=== PATIENT | female | born 1950 | race Caucasian/White ===

== ENCOUNTER 2019-02-27 16:14 | Observation (INO) | payer MEDICARE, OTHER, SELFPAY ==
[2019-02-27] VITALS (7 sets, daily range): BP systolic 130–159; BP diastolic 71–79; PULSE 80–101; RESP 16–27; TEMP 36.5–36.7; O2SAT 97–100; BMI 34.9; BMI 34.5
--- NOTE | 2019-02-27 16:50 | EKG12_ITS ---
Test Reason : CP Blood Pressure : / mmHG Vent. Rate : 095 BPM Atrial Rate : 095 BPM P-R Int : 134 ms QRS Dur : 078 ms QT Int : 348 ms P-R-T Axes : 040 -18 036 degrees QTc Int : 437 ms Normal sinus rhythm Normal ECG Confirmed by FRANCY DYE, DRU ([id number]), electronic news gathering editor LEEROY TREADWELL ([id number]) on 03/03/2019 8:51:49 AM Referred By: EMILIE/JENI Confirmed By:DRU SEN MD
--- NOTE | 2019-02-27 16:53 | NURSING ---
NO OLD EKGS
--- NOTE | 2019-02-27 16:58 | ED.DCSUM_ITS ---
- ER Visit Summary Date of Service: 02/27/19 Chief Complaint: Chest pain History of Present Illness: The patient is a 68 F who presents with chest pain that began today at approximately 1400 hrs. Patient states she got up to answer the door when she was walking back to the couch she felt some pain in her chest. Patient states the pain started in the left shoulder and radiated down her left arm. Patient states the pain is now over the left chest. Patient states nothing seems to help with the pain. Patient admits to some mild diaphoresis when the pain began. Patient also admits to some lightheadedness. Patient states she feels loopy. Patient also admits to some heartburn. Patient admits to some paresthesias in her left hand. Patient was recently started on Augmentin for urinary tract infection and gabapentin for occipital nerve pain. Physical Examination: Vital signs are stable. Patient is afebrile. Patient is in no acute distress. Oral mucosa is pink and moist. Neck is supple. Trachea is midline. There is no JVD noted. Heart was regular rate and rhythm. Lungs are clear and equal bilateral. Abdomen is soft. Bowel sounds are normal. There is no tenderness. There is no guarding noted. Skin is warm dry. Cranial nerves II through XII are intact. There are no focal motor or sensory deficits noted. The remaining physical exam is within normal limits. Test Results: EKG showed normal sinus rhythm with a rate of 95. There are no acute ST or T wave changes. CBC basic metabolic profile, PT with INR, and PTT were obtained and were all normal with the exception of a slightly elevated glucose of 151. Troponin was less than 0.015. Portable chest x-ray was obtained was normal. Emergency Department Course and Treatment: Patient was given aspirin and sublingual nitroglycerin. Patient had some improvement of her pain with this. Patient has a HEART score of 4. Patient has a TALITA risk score of 2. Patient does not remember when her last stress test was done but knows it is more than 1 year ago. Case was discussed with the hospitalist. Disposition: Admit for observation Impression: Chest pain This note was generated with [employer] dictation software. It may contain incorrect words, spelling, and punctuation that were not noted in review of the chart prior to signing ED Disposition - Plan for ED Patient: Disposition: Acute Care [facility] Diagnosis: Chest pain Referrals: Maxx Pñea MD [Primary Care Provider] -
--- NOTE | 2019-02-27 16:59 | RAD_ITS ---
STUDY: X-RAY CHEST REASON FOR EXAM: Female, 68 years old. Yes pain. TECHNIQUE: Portable chest. COMPARISON: None. FINDINGS: The patient is mildly rotated to the right. The lungs are clear and expanded. There is no demonstrated pleural abnormality. Normal size heart. Normal mediastinum and james. Normal visualized pulmonary arteries. Normal visualized aortic arch and descending thoracic aorta. Normal visualized thoracic spine. Normal visualized ribs, clavicles, and shoulders. There is no demonstrated abnormality of the visualized soft tissue structures of the upper abdomen. RAD/Chest 1 View (Portable) IMPRESSION: Normal x-ray examination of the chest. Electronically Signed: Yasmine Cordoba MD at 17:19 EDT Tel , Service support ,
[2019-02-27 17:00] LABS: Absolute Lymphocyte Count 2.61 X10^3/ul (0.83-4.51); Absolute Neutrophil Count 5.3 X10^3/uL (2.0-7.7); Basophil# 0.02 X10^3/uL; Basophil% 0.2 % (0-1); Eosinophil# 0.22 X10^3/uL; Eosinophils% 2.5 % (0-5); Hematocrit 39.8 % (37-47); Hemoglobin 13.3 g/dl (12.0-15.0); Lymphocyte # 2.61 X10^3/ul (4.0); Mean Corp Hgb Conc 33.4 g/gl (32-36); Mean Corpuscular Hgb 30.7 pg (27.0-32.0); Mean Corpuscular Volume 91.9 fL (81-99); Mean Platelet Vol. 8.7 fl (6.2-12.0); Monocyte# 0.55 X10^3/uL; Monocyte% 6.3 % (0-10); Neutrophil # 5.28 X10^3/uL (2.7-7.7); Neutrophil % 60.9 % (47-70); Platelet Count 290 K/mm3 (150-450); RBC Distribution Width CV 13.2 % (11.6-14.6); RBC Distribution Width SD 44.2 fl (35.1-43.9); Red Blood Count 4.33 M/mm3 (4.2-5.4); White Blood Count 8.7 K/mm3 (4.4-11.0)
[2019-02-27] MEDS: Nitroglycerin SL (ED/IMG/CATH) 0.4 MG TABLET SUBLINGUAL (17:00)
[2019-02-27 17:02] LABS: POSITIVE COUNT NO; POSITIVE DIFFERENTIAL NO; POSITIVE MORPHOLOGY NO
[2019-02-27 17:13] LABS: Anion Gap 6 (5-15); BUN 20 mg/dL (7-18); BUN/Creat Ratio 22.1 RATIO (10-20); Calcium,Total 9.6 mg/dL (8.5-10.1); Chloride 106 mmol/L (98-107); EST Glomerular Filtration Rate 66 mL/min (>60); Est Glom Filt Rate - Afr Amer 80 mL/min (>60); Estimated Creatinine Clearance 53.83 ml/min; Glucose 151 mg/dL (74-106); Sodium Level 140 mmol/L (136-145)
--- NOTE | 2019-02-27 17:15 | NURSING ---
COAGS NEED REDRAWN, NOT ENOUGH IN TUBE
[2019-02-27 17:50] LABS: Prothrombin Time (Protime)PT. 12.7 SECONDS (11.7-14.9)
[2019-02-27 17:51] LABS: Partial Thromboplast Time 28.6 Seconds (24.1-36.2)
--- NOTE | 2019-02-27 19:18 | PCM.HP.STD ---
Problem List (1) Chest pain Status: Acute Qualifiers: Chest pain type: unspecified Qualified Code(s): R07.9 - Chest pain, unspecified (2) Obesity (BMI 30.0-34.9) Status: Chronic (3) Diabetes mellitus, type II Status: Chronic Qualifiers: Diabetes mellitus long-term insulin use: with oil heaterman use Diabetes mellitus complication status: with other specified complication Qualified Code(s): E11.69 - Type 2 diabetes mellitus with other specified complication; Z79.4 - terminal carman (current) use of insulin (4) GERD (gastroesophageal reflux disease) Status: Chronic Qualifiers: Esophagitis presence: esophagitis presence not specified Qualified Code(s): K21.9 - Gastro-esophageal reflux disease without esophagitis History of Present Illness Date of Admission: 02/27/19 Chief Complaint: Chest pain The patient is a 68 y/o F w/ PMHx: Obesity, Diabetes mellitus type II w/ Neuropathy, GERD who presents to the [facility] ED on 02/27/19 with history of onset at approximately 2 PM while walking to the door with also recurrent similar episodes with exertion with noted a constant dull aching chest discomfort initially starting in her left shoulder progressing down her left upper extremity and then into her left chest with associated paresthesias in her hand as well as diaphoresis with no associated nausea, emesis or dyspnea, the discomfort as 4-6 out of 10. She did state that while in the emergency room with episode of chest discomfort she did have dyspepsia but this resolved. She notes that it did improve when she was resting. She did have recurrent episode when up to use the restroom in the emergency room but again improved when seated back down in bed. She did take nitroglycerin and noted that she felt very nauseous with this medication and refused any further dosing. Patient notes that she is regularly active and walks frequently. Work-up in the ED included CBC w/ WBC 8.7, Hgb 13.3, Plts 290 without shift, normal coags, BMP with glucose 151, trop < 0.015, EKG w/ SR without acute evidence of ischemia, CXR w/ no acute findings. In the ED patient administered NG, ASA. Past Medical History Past Medical History (Chronic Problems): Chronic Problems Obesity (BMI 30.0-34.9) (Chronic) Diabetes mellitus, type II (Chronic) GERD (gastroesophageal reflux disease) (Chronic) Allergies carbidopa [From Sinemet] Allergy (Verified 02/27/19 16:30) Other levodopa [From Sinemet] Allergy (Verified 02/27/19 16:30) Other meperidine Allergy (Verified 02/27/19 16:30) Other Sulfa (Sulfonamide Antibiotics) Allergy (Verified 02/27/19 16:30) Rash acetaminophen [From [place]] Adverse Reaction (Verified 02/27/19 16:30) Nausea adhesive tape Adverse Reaction (Verified 02/27/19 16:30) Rash aspirin Adverse Reaction (Verified 02/27/19 16:30) Upset Stomach capsaicin Adverse Reaction (Verified 02/27/19 16:30) Nausea cat dander Adverse Reaction (Verified 02/27/19 16:30) Other cigarette smoke Adverse Reaction (Verified 02/27/19 16:30) Other ciprofloxacin Adverse Reaction (Verified 02/27/19 16:30) Nausea codeine Adverse Reaction (Verified 02/27/19 16:30) Nausea cyclobenzaprine Adverse Reaction (Verified 02/27/19 16:30) Nausea erythromycin base Adverse Reaction (Verified 02/27/19 16:30) Nausea hydrocodone [From [place]] Adverse Reaction (Verified 02/27/19 16:30) Nausea morphine Adverse Reaction (Verified 02/27/19 16:30) Nausea oxycodone Adverse Reaction (Verified 02/27/19 16:30) Nausea sulfamethoxazole [From [place]ra] Adverse Reaction (Verified 02/27/19 16:30) Nausea tramadol Adverse Reaction (Verified 02/27/19 16:30) Nausea trimethoprim Adverse Reaction (Verified 02/27/19 16:30) Other Home Medications: Ambulatory Orders Medication Instructions Recorded Amoxicillin/Potassium Clav 1 each PO BID 02/27/19 [Augmentin 875-125 Tablet] Gabapentin [Neurontin] 100 mg PO BID 02/27/19 Insulin Glargine,Hum.rec.anlog 10 unit SQ QHS 02/27/19 [Lantus Solostar] Multivit-Min/FA/Lycopen/Lutein 1 each PO DAILY 02/27/19 [Sentry Senior Tablet] Ranitidine HCl 150 mg PO DAILY 02/27/19 Surgical History: - - Biceps tendon repair, lumbar surgery, hand surgery, right total knee replacement, hysterectomy, left ankle surgery, cholecystectomy. 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 Review of Systems Constitutional: Reports: Fatigue. Denies: Chills, Fever, Weight Change HEENT: Denies: Head Aches, Sinus Congestion, Sinus Drainage Cardiovascular: Reports: Chest Pain. Denies: Palpitations Respiratory: Denies: Cough, Shortness of breath at rest, Sputum production Gastrointestinal: Reports: Dyspepsia. Denies: Abdominal Pain, Nausea, Vomiting Genitourinary: Reports: Dysuria, Frequency Musculoskeletal: Reports: Back Pain. Denies: Joint Pain, Joint Tenderness Skin: Denies: Rash, Wounds Neurological: Denies: Numbness, Tingling, Focal weakness Psychiatric: Denies: Anxiety, Depression, Homicidal Ideations, Suicidal Ideations Hematologic/ Lymphatic: Denies: Easy Bruising, Easy Bleeding VTE Information - Inpt Only VTE Present on Admission: No VTE Mechan Device Prophylaxis: SCD's VTE Pharm Prophylaxis ordered?: Yes Patient Problems: Active and Suspected Problems Chest pain (Acute) Subjective: Patient seated upright in ED bed, currently no acute distress, no current chest discomfort. Objective: Physical Examination: General: awake, alert, oriented x 3 and cooperative, seated upright in the ED bed in no apparent distress, currently no chest discomfort but did have episode with ambulation to the bathroom in the ED. Skin: normal color, turgor, no icterus, cyanosis. HEENT: AT/NC, EOMI, PERRLA, MMM, no carotid bruits or JVD noted. Lungs: CTA bilaterally, moderate effort, mild decrease BL bases, no rales, ronchi or wheezing. Heart: Regular rate and rhythm; no gallop, rub audible. Abdomen: soft, obese, NTTP, ND, normal BS, no HSM; however, habitus makes examination difficult. Extremities: no cyanosis, clubbing, or edema. Neurological: patient awake, alert, oriented x 3; cognitive function intact; pupils equally reactive to light and accomodation; cranial nerves II-XII grossly normal, moving all 4 extremities, no focal deficits, strength mildly to moderately global decrease secondary to acute presentation. Psychiatric: affect appears normal, no acute evidence of depressive or anxiety feelings. - Physical Exam Vital Signs Temp Pulse Resp BP Pulse Ox 98.0 F 84 27 H 130/71 H 99 02/27/19 16:15 02/27/19 19:03 02/27/19 19:03 02/27/19 17:02 02/27/19 19:03 Oxygen Delivery Method Room Air Weight: 209 lb 14.081 oz Body Mass Index (BMI) 34.9 Laboratory Tests Past 24 Hrs 02/27/19 02/27/19 02/27/19 16:22 16:22 16:22 WBC 8.7 RBC 4.33 Hgb 13.3 Hct 39.8 MCV 91.9 MCH 30.7 MCHC 33.4 RDW 13.2 RDW Differential 44.2 H Plt Count 290 MPV 8.7 Immature Gran % (Auto) 0.100 Neut % (Auto) 60.9 Lymph % (Auto) 30.0 [place] % (Auto) 6.3 Eos % (Auto) 2.5 Baso % (Auto) 0.2 Absolute Neuts (auto) 5.3 Absolute Lymphs (auto) 2.61 Total Counted Not Reportable PT Cancelled INR Cancelled APTT Cancelled Sodium 140 Potassium 4.0 Chloride 106 Carbon Dioxide 28.0 Anion Gap 6 BUN 20 H Creatinine 0.90 Estim Creat Clear Calc 53.83 Est GFR (MDRD) Af Amer 80 Est GFR (MDRD) Non-Af 66 BUN/Creatinine Ratio 22.1 H Glucose 151 H Calcium 9.6 Troponin I < 0.015 02/27/19 17:30 WBC RBC Hgb Hct MCV MCH MCHC RDW RDW Differential Plt Count MPV Immature Gran % (Auto) Neut % (Auto) Lymph % (Auto) [place] % (Auto) Eos % (Auto) Baso % (Auto) Absolute Neuts (auto) Absolute Lymphs (auto) Total Counted PT 12.7 INR 1.0 APTT 28.6 Sodium Potassium Chloride Carbon Dioxide Anion Gap BUN Creatinine Estim Creat Clear Calc Est GFR (MDRD) Af Amer Est GFR (MDRD) Non-Af BUN/Creatinine Ratio Glucose Calcium Troponin I Assessment/Plan All Active Problems Chest pain (Acute) The patient is a 68 y/o F w/ PMHx: Obesity, Diabetes mellitus type II w/ Neuropathy, GERD who presents to the [facility] ED on 02/27/19 with history of onset at approximately 2 PM chest pain. (1) Chest Pain: Work-up in the ED included CBC w/ WBC 8.7, Hgb 13.3, Plts 290 without shift, normal coags, BMP with glucose 151, trop < 0.015, EKG w/ SR without acute evidence of ischemia, CXR w/ no acute findings. Will admit to PCU, place on a monitored bed to assure no acute myocardial infarction with serial cardiac enzymes and EKGs. Patient is able to perform exercise and does not have LBBB, V-pacing, ST-T changes, LVH, prior PCI history and is not on digoxin thus will proceed with AM stress test. ASA, NG, morphine. FLP in AM. Mag pending. (2) Recent Acute UTI, Unclear organism: Recently started on augmentin this past Saturday per PCP. (3) Diabetes mellitus type II w/ Neuropathy: Continue home insulin regimen, ADA diet, accu checks w/ ISS, continue gabapentin. (4) Obesity: Weight loss and lifestyle changes encouraged. (5) GERD: Continue home ranitidine regimen. (6) DVT prophylaxis: SCD, Lovenox. Code Visit OBSV E&M: 09711 Initial observation care L3
--- NOTE | 2019-02-27 19:21 | HP.PCM_ITS ---
Problem List (1) Chest pain Status: Acute Qualifiers: Chest pain type: unspecified Qualified Code(s): R07.9 - Chest pain, unspecified (2) Obesity (BMI 30.0-34.9) Status: Chronic (3) Diabetes mellitus, type II Status: Chronic Qualifiers: Diabetes mellitus halfway insulin use: with terminal clerk use Diabetes mellitus complication status: with other specified complication Qualified Code(s): E11.69 - Type 2 diabetes mellitus with other specified complication; Z79.4 - terminal block assembler (current) use of insulin (4) GERD (gastroesophageal reflux disease) Status: Chronic Qualifiers: Esophagitis presence: esophagitis presence not specified Qualified Code(s): K21.9 - Gastro-esophageal reflux disease without esophagitis History of Present Illness Date of Admission: 02/27/19 Chief Complaint: Chest pain The patient is a 68 y/o F w/ PMHx: Obesity, Diabetes mellitus type II w/ Neuropathy, GERD who presents to the [facility] ED on 02/27/19 with history of onset at approximately 2 PM while walking to the door with also recurrent similar episodes with exertion with noted a constant dull aching chest discomfort initially starting in her left shoulder progressing down her left upper extremity and then into her left chest with associated paresthesias in her hand as well as diaphoresis with no associated nausea, emesis or dyspnea, the discomfort as 4-6 out of 10. She did state that while in the emergency room with episode of chest discomfort she did have dyspepsia but this resolved. She notes that it did improve when she was resting. She did have recurrent episode when up to use the restroom in the emergency room but again improved when seated back down in bed. She did take nitroglycerin and noted that she felt very nauseous with this medication and refused any further dosing. Patient notes that she is regularly active and walks frequently. Work-up in the ED included CBC w/ WBC 8.7, Hgb 13.3, Plts 290 without shift, normal coags, BMP with glucose 151, trop < 0.015, EKG w/ SR without acute evidence of ischemia, CXR w/ no acute findings. In the ED patient administered NG, ASA. Past Medical History Past Medical History (Chronic Problems): Chronic Problems Obesity (BMI 30.0-34.9) (Chronic) Diabetes mellitus, type II (Chronic) GERD (gastroesophageal reflux disease) (Chronic) Allergies carbidopa [From Sinemet] Allergy (Verified 02/27/19 16:30) Other levodopa [From Sinemet] Allergy (Verified 02/27/19 16:30) Other meperidine Allergy (Verified 02/27/19 16:30) Other Sulfa (Sulfonamide Antibiotics) Allergy (Verified 02/27/19 16:30) Rash acetaminophen [From [place]] Adverse Reaction (Verified 02/27/19 16:30) Nausea adhesive tape Adverse Reaction (Verified 02/27/19 16:30) Rash aspirin Adverse Reaction (Verified 02/27/19 16:30) Upset Stomach capsaicin Adverse Reaction (Verified 02/27/19 16:30) Nausea cat dander Adverse Reaction (Verified 02/27/19 16:30) Other cigarette smoke Adverse Reaction (Verified 02/27/19 16:30) Other ciprofloxacin Adverse Reaction (Verified 02/27/19 16:30) Nausea codeine Adverse Reaction (Verified 02/27/19 16:30) Nausea cyclobenzaprine Adverse Reaction (Verified 02/27/19 16:30) Nausea erythromycin base Adverse Reaction (Verified 02/27/19 16:30) Nausea hydrocodone [From [place]] Adverse Reaction (Verified 02/27/19 16:30) Nausea morphine Adverse Reaction (Verified 02/27/19 16:30) Nausea oxycodone Adverse Reaction (Verified 02/27/19 16:30) Nausea sulfamethoxazole [From Septra] Adverse Reaction (Verified 02/27/19 16:30) Nausea tramadol Adverse Reaction (Verified 02/27/19 16:30) Nausea trimethoprim Adverse Reaction (Verified 02/27/19 16:30) Other Home Medications: Ambulatory Orders Medication Instructions Recorded Amoxicillin/Potassium Clav 1 each PO BID 02/27/19 [Augmentin 875-125 Tablet] Gabapentin [Neurontin] 100 mg PO BID 02/27/19 Insulin Glargine,Hum.rec.anlog 10 unit SQ QHS 02/27/19 [Lantus Solostar] Multivit-Min/FA/Lycopen/Lutein 1 each PO DAILY 02/27/19 [Sentry Senior Tablet] Ranitidine HCl 150 mg PO DAILY 02/27/19 Surgical History: - - Biceps tendon repair, lumbar surgery, hand surgery, right total knee replacement, hysterectomy, left ankle surgery, cholecystectomy. 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 Review of Systems Constitutional: Reports: Fatigue. Denies: Chills, Fever, Weight Change HEENT: Denies: Head Aches, Sinus Congestion, Sinus Drainage Cardiovascular: Reports: Chest Pain. Denies: Palpitations Respiratory: Denies: Cough, Shortness of breath at rest, Sputum production Gastrointestinal: Reports: Dyspepsia. Denies: Abdominal Pain, Nausea, Vomiting Genitourinary: Reports: Dysuria, Frequency Musculoskeletal: Reports: Back Pain. Denies: Joint Pain, Joint Tenderness Skin: Denies: Rash, Wounds Neurological: Denies: Numbness, Tingling, Focal weakness Psychiatric: Denies: Anxiety, Depression, Homicidal Ideations, Suicidal Ideations Hematologic/ Lymphatic: Denies: Easy Bruising, Easy Bleeding VTE Information - Inpt Only VTE Present on Admission: No VTE Mechan Device Prophylaxis: SCD's VTE Pharm Prophylaxis ordered?: Yes Patient Problems: Active and Suspected Problems Chest pain (Acute) Subjective: Patient seated upright in ED bed, currently no acute distress, no current chest discomfort. Objective: Physical Examination: General: awake, alert, oriented x 3 and cooperative, seated upright in the ED bed in no apparent distress, currently no chest discomfort but did have episode with ambulation to the bathroom in the ED. Skin: normal color, turgor, no icterus, cyanosis. HEENT: AT/NC, EOMI, PERRLA, MMM, no carotid bruits or JVD noted. Lungs: CTA bilaterally, moderate effort, mild decrease BL bases, no rales, ronchi or wheezing. Heart: Regular rate and rhythm; no gallop, rub audible. Abdomen: soft, obese, NTTP, ND, normal BS, no HSM; however, habitus makes examination difficult. Extremities: no cyanosis, clubbing, or edema. Neurological: patient awake, alert, oriented x 3; cognitive function intact; pupils equally reactive to light and accomodation; cranial nerves II-XII grossly normal, moving all 4 extremities, no focal deficits, strength mildly to moderately global decrease secondary to acute presentation. Psychiatric: affect appears normal, no acute evidence of depressive or anxiety feelings. - Physical Exam Vital Signs Temp Pulse Resp BP Pulse Ox 98.0 F 84 27 H 130/71 H 99 02/27/19 16:15 02/27/19 19:03 02/27/19 19:03 02/27/19 17:02 02/27/19 19:03 Oxygen Delivery Method Room Air Weight: 209 lb 14.081 oz Body Mass Index (BMI) 34.9 Laboratory Tests Past 24 Hrs 02/27/19 02/27/19 02/27/19 16:22 16:22 16:22 WBC 8.7 RBC 4.33 Hgb 13.3 Hct 39.8 MCV 91.9 MCH 30.7 MCHC 33.4 RDW 13.2 RDW Differential 44.2 H Plt Count 290 MPV 8.7 Immature Gran % (Auto) 0.100 Neut % (Auto) 60.9 Lymph % (Auto) 30.0 [place] % (Auto) 6.3 Eos % (Auto) 2.5 Baso % (Auto) 0.2 Absolute Neuts (auto) 5.3 Absolute Lymphs (auto) 2.61 Total Counted Not Reportable PT Cancelled INR Cancelled APTT Cancelled Sodium 140 Potassium 4.0 Chloride 106 Carbon Dioxide 28.0 Anion Gap 6 BUN 20 H Creatinine 0.90 Estim Creat Clear Calc 53.83 Est GFR (MDRD) Af Amer 80 Est GFR (MDRD) Non-Af 66 BUN/Creatinine Ratio 22.1 H Glucose 151 H Calcium 9.6 Troponin I < 0.015 02/27/19 17:30 WBC RBC Hgb Hct MCV MCH MCHC RDW RDW Differential Plt Count MPV Immature Gran % (Auto) Neut % (Auto) Lymph % (Auto) [place] % (Auto) Eos % (Auto) Baso % (Auto) Absolute Neuts (auto) Absolute Lymphs (auto) Total Counted PT 12.7 INR 1.0 APTT 28.6 Sodium Potassium Chloride Carbon Dioxide Anion Gap BUN Creatinine Estim Creat Clear Calc Est GFR (MDRD) Af Amer Est GFR (MDRD) Non-Af BUN/Creatinine Ratio Glucose Calcium Troponin I Assessment/Plan All Active Problems Chest pain (Acute) The patient is a 68 y/o F w/ PMHx: Obesity, Diabetes mellitus type II w/ Neuropathy, GERD who presents to the [facility] ED on 02/27/19 with history of onset at approximately 2 PM chest pain. (1) Chest Pain: Work-up in the ED included CBC w/ WBC 8.7, Hgb 13.3, Plts 290 without shift, normal coags, BMP with glucose 151, trop < 0.015, EKG w/ SR without acute evidence of ischemia, CXR w/ no acute findings. Will admit to PCU, place on a monitored bed to assure no acute myocardial infarction with serial cardiac enzymes and EKGs. Patient is able to perform exercise and does not have LBBB, V-pacing, ST-T changes, LVH, prior PCI history and is not on digoxin thus will proceed with AM stress test. ASA, NG, morphine. FLP in AM. Mag pending. (2) Recent Acute UTI, Unclear organism: Recently started on augmentin this past Saturday per PCP. (3) Diabetes mellitus type II w/ Neuropathy: Continue home insulin regimen, ADA diet, accu checks w/ ISS, continue gabapentin. (4) Obesity: Weight loss and lifestyle changes encouraged. (5) GERD: Continue home ranitidine regimen. (6) DVT prophylaxis: SCD, Lovenox. Code Visit OBSV E&M: 20399 Initial observation care L3
--- NOTE | 2019-02-27 20:14 | EKG12_ITS ---
Test Reason : Blood Pressure : / mmHG Vent. Rate : 075 BPM Atrial Rate : 075 BPM P-R Int : 146 ms QRS Dur : 082 ms QT Int : 416 ms P-R-T Axes : 051 -16 030 degrees QTc Int : 464 ms Normal sinus rhythm Leftward [place] Poor R-Wave Progression Confirmed by AL DYE, ELIZABETH ([id number]), movie editor LEEROY TREADWELL ([id number]) on 03/04/2019 11:38:18 AM Referred By: Confirmed By:ELIZABETH MELENDEZ MD
[2019-02-27 20:29] LABS: Magnesium 1.8 mg/dL (1.6-2.6)
[2019-02-27] MEDS: 0.9% NaCl Peripheral Flush Adult/Peds IV (21:05)
[2019-02-27] MEDS: 0.9% Normal Saline 1,000 ML 100 ML IV (21:08)
[2019-02-27 21:40] LABS: Bedside Glucose 127 mg/dL (70-110)
[2019-02-27] MEDS: Acetaminophen 325 MG Tablet 650 MG PO (21:53)
[2019-02-27] MEDS: Amox/Clavulanate 875 MG Tablet PO (21:55)
[2019-02-28] VITALS (8 sets, daily range): BP systolic 120–149; BP diastolic 56–72; PULSE 70–83; RESP 14–16; TEMP 36.3–36.6; O2SAT 95–100
[2019-02-28] MEDS: Acetaminophen 325 MG Tablet 650 MG PO ×2 (03:55→11:11)
[2019-02-28 05:37] LABS: Hematocrit 36.9 % (37-47); Hemoglobin 11.8 g/dl (12.0-15.0); Mean Corpuscular Hgb 29.2 pg (27.0-32.0); Mean Corpuscular Volume 91.3 fL (81-99); Mean Platelet Vol. 8.5 fl (6.2-12.0); Platelet Count 265 K/mm3 (150-450); RBC Distribution Width SD 42.3 fl (35.1-43.9); Red Blood Count 4.04 M/mm3 (4.2-5.4); Scan Indicated on CBC? Y/N NO; White Blood Count 6.8 K/mm3 (4.4-11.0)
[2019-02-28 05:52] LABS: ALB/GLOB Ratio 0.8 RATIO (0.9-2.4); AST(SGOT) 15 U/L (15-37); Alanine Aminotransfer ALT/SGPT 22 U/L (13-56); Albumin, Serum 2.8 g/dL (3.2-5.0); Alkaline Phosphatase 88 U/L (45-117); Anion Gap 9 (5-15); BUN 19 mg/dL (7-18); BUN/Creat Ratio 25.1 RATIO (10-20); Calcium,Total 8.4 mg/dL (8.5-10.1); Chloride 109 mmol/L (98-107); Cholesterol 151 mg/dL (200); Creatinine, Serum 0.76 mg/dL (0.55-1.02); EST Glomerular Filtration Rate 81 mL/min (>60); Est Glom Filt Rate - Afr Amer 98 mL/min (>60); Estimated Creatinine Clearance 48.45 ml/min; Globulin 3.5 g/dL (2.2-4.2); Glucose 116 mg/dL (74-106); High Density Lipoprotein 55 mg/dL; Protein, Total 6.3 g/dL (6.4-8.2); Sodium Level 143 mmol/L (136-145); Triglycerides 122 mg/dL; Very Low Density Lipoprotein 24 mg/dL (5-40)
--- NOTE | 2019-02-28 05:55 | EKG12_ITS ---
Test Reason : Blood Pressure : / mmHG Vent. Rate : 076 BPM Atrial Rate : 076 BPM P-R Int : 146 ms QRS Dur : 082 ms QT Int : 392 ms P-R-T Axes : 029 -06 009 degrees QTc Int : 441 ms Normal sinus rhythm Poor R-Wave Progression Confirmed by AL DYE, ELIZABETH ([id number]), editor in chief newspaper LEEROY TREADWELL ([id number]) on 03/04/2019 11:38:37 AM Referred By: Confirmed By:ELIZABETH MELENDEZ MD
[2019-02-28] MEDS: 0.9% Normal Saline 1,000 ML 100 ML IV (06:46)
[2019-02-28] MEDS: Aspirin E.C. 81 MG Tablet PO (06:47)
[2019-02-28 07:01] LABS: Bedside Glucose 136 mg/dL (70-110)
--- NOTE | 2019-02-28 09:46 | NURSING ---
Pt down in stress lab for testing.
[2019-02-28] MEDS: Amox/Clavulanate 875 MG Tablet PO (11:06)
[2019-02-28] MEDS: Famotidine 20 MG Tablet PO (11:06)
[2019-02-28] MEDS: Gabapentin 100 MG Capsule PO (11:07)
[2019-02-28] MEDS: Multivitamins,Ther W-Minerals Tablet 1 TABLET PO (11:07)
[2019-02-28 11:41] LABS: Bedside Glucose 156 mg/dL (70-110)
--- NOTE | 2019-02-28 11:45 | STRESSREP ---
Stress Test Report Pharmacologic myocardial perfusion stress test. 68-year-old lady with a history of chest pain. Resting EKG demonstrates normal sinus rhythm with a rate of 72 bpm normal intervals are noted resting blood pressures 138/80 mmHg. 0.4 mg of regadenoson was infused per usual protocol followed by rapid intravenous saline flush injection continuous EKG monitoring was performed. The maximum heart rate attained was 100 bpm which was 65% of maximum predicted heart rate. At rest there were nonspecific ST-T wave changes with number the criteria for ischemia peak infusion nonspecific ST-T wave changes were noted. Myocardial perfusion protocol. 14.1 mCi of technetium 99m sestamibi was injected at rest. 0.4 mg regadenoson was infused per usual protocol peak infusion 43.1 mCi of technetium 99m sestamibi was injected stress images were obtained stress and rest images are reconstructed in comparing the short axis vertical long horizontal long axis. Gated images were also obtained Perfusion SPECT analysis. Review of the images especially the attenuated corrected images demonstrated uniform perfusion of all areas of the myocardium except for small portion of the apex. There is significant GI attenuation artifact noted. No obvious reversibility is noted suggest ischemia. Gated SPECT analysis: The gated ejection fraction is noted to be 65% Conclusion: Normal pharmacologic myocardial perfusion stress test. Preserved ejection fraction.
--- NOTE | 2019-02-28 11:53 | DCINST_ITS ---
- Discharge Diagnoses Current Active Problems: Current Active and Chronic Problems Chest pain (Acute) Obesity (BMI 30.0-34.9) (Chronic) Diabetes mellitus, type II (Chronic) GERD (gastroesophageal reflux disease) (Chronic) You will use the following diet at home:: No restrictions Discharge Activity: Return to Normal Activity Call your doctor if you observe: Shortness of breath, Dizziness, Fainting spells, Chest pain Allergies/Adverse Reactions: Allergies Sulfa (Sulfonamide Antibiotics) Allergy (Verified 02/27/19 16:30) Rash acetaminophen [From [place]] Adverse Reaction (Verified 02/27/19 16:30) Nausea adhesive tape Adverse Reaction (Verified 02/27/19 16:30) Rash aspirin Adverse Reaction (Verified 02/27/19 16:30) Upset Stomach capsaicin Adverse Reaction (Verified 02/27/19 16:30) Nausea carbidopa [From Sinemet] Adverse Reaction (Verified 02/27/19 20:18) Nausea cat dander Adverse Reaction (Verified 02/27/19 16:30) Other cigarette smoke Adverse Reaction (Verified 02/27/19 16:30) Other ciprofloxacin Adverse Reaction (Verified 02/27/19 16:30) Nausea codeine Adverse Reaction (Verified 02/27/19 16:30) Nausea cyclobenzaprine Adverse Reaction (Verified 02/27/19 16:30) Nausea erythromycin base Adverse Reaction (Verified 02/27/19 16:30) Nausea hydrocodone [From [place]] Adverse Reaction (Verified 02/27/19 16:30) Nausea levodopa [From Sinemet] Adverse Reaction (Verified 02/27/19 20:18) Nausea meperidine Adverse Reaction (Verified 02/27/19 20:18) Nausea morphine Adverse Reaction (Verified 02/27/19 16:30) Nausea oxycodone Adverse Reaction (Verified 02/27/19 16:30) Nausea sulfamethoxazole [From Septra] Adverse Reaction (Verified 02/27/19 16:30) Nausea tramadol Adverse Reaction (Verified 02/27/19 16:30) Nausea trimethoprim Adverse Reaction (Verified 02/27/19 16:30) Other Medications to take at Discharge Amoxicillin/Potassium Clav [Augmentin 875-125 Tablet] 1 each PO BID 02/27/19 Gabapentin [Neurontin] 100 mg PO BID 02/27/19 Insulin Glargine,Hum.rec.anlog [Lantus Solostar] 10 unit SQ QHS 02/27/19 Multivit-Min/FA/Lycopen/Lutein [Sentry Senior Tablet] 1 each PO DAILY 02/27/19 Ranitidine HCl 150 mg PO DAILY 02/27/19 Primary Care Physician: Maxx Peña MD [Primary Care Provider] - Please follow up with your Primary Care Physician in: 1 Week Test Results: Test results from this visit will be discussed in further detail at your follow- up appointment, if applicable. Proposed Discharge Date: 02/28/19
--- NOTE | 2019-02-28 11:54 | PCM.DC.SUM ---
<Riri Lopez - Last Filed: 02/28/19 11:59> Discharge Date and Diagnosis Date of Admission: 02/27/19 Date of Discharge: 02/28/19 - Primary Discharge Diagnosis Active and Suspected Problems 1. Chest pain, ACS ruled out 2. Recent UTI 3. Type 2 diabetes mellitus with neuropathy 4. Obesity 5. GERD - Secondary Discharge Diagnosis Chronic Problems Obesity (BMI 30.0-34.9) (Chronic) Diabetes mellitus, type II (Chronic) GERD (gastroesophageal reflux disease) (Chronic) Hospital Course and Treatment Imaging Results: Diagnostic Data Chest X-Ray 02/27/19 16:59 IMPRESSION: Normal x-ray examination of the chest. Electronically Signed: Yasmine Cordoba MD at 17:19 EDT Tel , Service support , Operations: None Procedures: Stress test Summary of Care Provided: The patient is a 68 year old F admitted 02/27/2018 due to chest pain. 1. Chest pain, ACS ruled out-troponin negative. EKG without ST-T changes. Chest x-ray without acute findings. Patient underwent nuclear stress test which was negative for ischemia. Lipid panel within normal limits. Suspect musculoskeletal in nature. Follow-up with primary care provider in 1 week. 2. Recent UTI-placed on Augmentin by PCP, complete prescribed course. 3. Type 2 diabetes mellitus with neuropathy-continue home insulin, gabapentin regimen. 4. Obesity-encouraged diet and lifestyle modifications. 5. GERD-continue home ranitidine regimen. Patient seen and examined prior to discharge. Physical assessment as noted below. Patient is stable for discharge with follow up recommendations as noted above. This patient was seen by SUNNY Youngblood under the supervision of Dr. Isidro. - Physical Exam General: Alert, Oriented x3, Cooperative HEENT: Atraumatic, PERRLA, EOMI, Normocephalic Neck: Supple, No JVD, Negative Carotid Bruits Lungs: Clear to auscultation, Normal air movement Cardiovascular: Regular rate, Regular Rhythm, Normal S1, Normal S2, No murmurs Abdomen: Bowel Sounds Present, Soft, Non Tender, Non-Distended, Obese Extremities: No clubbing, No cyanosis, No edema, Capillary Refill Less than 3 Seconds Skin: No rashes, No breakdown Musculoskeletal: No Tenderness to Palpation of Joints or Extremities Neurological: Cranial nerves II-XII grossly intact, Neuro grossly intact Psych/Mental Status: Normal Affect, Appropriate Vital Signs Temp Pulse Resp BP Pulse Ox 97.4 F L 70 16 149/67 H 100 02/28/19 11:20 02/28/19 11:20 02/28/19 11:20 02/28/19 11:20 02/28/19 11:42 Oxygen Delivery Method Room Air Weight: 207 lb 9.6 oz Body Mass Index (BMI) 34.5 Intake and Output for Last 24 Hours 02/26/19 02/27/19 02/28/19 23:59 23:59 23:59 Intake Total 848 / 848 703 / 703 Output Total 400 / 400 600 / 600 Balance 448 / 448 103 / 103 Laboratory Tests Past 24 Hrs 02/27/19 02/27/19 02/27/19 16:22 16:22 16:22 WBC 8.7 RBC 4.33 Hgb 13.3 Hct 39.8 MCV 91.9 MCH 30.7 MCHC 33.4 RDW 13.2 RDW Differential 44.2 H Plt Count 290 MPV 8.7 Immature Gran % (Auto) 0.100 Neut % (Auto) 60.9 Lymph % (Auto) 30.0 [place] % (Auto) 6.3 Eos % (Auto) 2.5 Baso % (Auto) 0.2 Absolute Neuts (auto) 5.3 Absolute Lymphs (auto) 2.61 Total Counted Not Reportable PT Cancelled INR Cancelled APTT Cancelled Sodium 140 Potassium 4.0 Chloride 106 Carbon Dioxide 28.0 Anion Gap 6 BUN 20 H Creatinine 0.90 Estim Creat Clear Calc 53.83 Est GFR (MDRD) Af Amer 80 Est GFR (MDRD) Non-Af 66 BUN/Creatinine Ratio 22.1 H Glucose 151 H Calcium 9.6 Magnesium Total Bilirubin AST ALT Alkaline Phosphatase Troponin I < 0.015 Total Protein Albumin Globulin Albumin/Globulin Ratio Triglycerides Cholesterol LDL Cholesterol VLDL Cholesterol HDL Cholesterol 02/27/19 02/27/19 02/27/19 17:30 19:55 20:14 WBC RBC Hgb Hct MCV MCH MCHC RDW RDW Differential Plt Count MPV Immature Gran % (Auto) Neut % (Auto) Lymph % (Auto) [place] % (Auto) Eos % (Auto) Baso % (Auto) Absolute Neuts (auto) Absolute Lymphs (auto) Total Counted PT 12.7 INR 1.0 APTT 28.6 Sodium Potassium Chloride Carbon Dioxide Anion Gap BUN Creatinine Estim Creat Clear Calc Est GFR (MDRD) Af Amer Est GFR (MDRD) Non-Af BUN/Creatinine Ratio Glucose Calcium Magnesium 1.8 Total Bilirubin AST ALT Alkaline Phosphatase Troponin I < 0.015 Total Protein Albumin Globulin Albumin/Globulin Ratio Triglycerides Cholesterol LDL Cholesterol VLDL Cholesterol HDL Cholesterol 02/27/19 02/28/19 02/28/19 23:00 05:07 05:07 WBC 6.8 RBC 4.04 L Hgb 11.8 L Hct 36.9 L MCV 91.3 MCH 29.2 MCHC 32.0 RDW 13.0 RDW Differential 42.3 Plt Count 265 MPV 8.5 Immature Gran % (Auto) Neut % (Auto) Lymph % (Auto) [place] % (Auto) Eos % (Auto) Baso % (Auto) Absolute Neuts (auto) Absolute Lymphs (auto) Total Counted PT INR APTT Sodium 143 Potassium 4.0 Chloride 109 H Carbon Dioxide 25.0 Anion Gap 9 BUN 19 H Creatinine 0.76 Estim Creat Clear Calc 48.45 Est GFR (MDRD) Af Amer 98 Est GFR (MDRD) Non-Af 81 BUN/Creatinine Ratio 25.1 H Glucose 116 H Calcium 8.4 L Magnesium Total Bilirubin 0.30 AST 15 ALT 22 Alkaline Phosphatase 88 Troponin I < 0.015 Total Protein 6.3 L Albumin 2.8 L Globulin 3.5 Albumin/Globulin Ratio 0.8 L Triglycerides 122 Cholesterol 151 LDL Cholesterol 72 VLDL Cholesterol 24 HDL Cholesterol 55 POC Glucose 02/28/19 02/28/19 02/27/19 11:19 06:51 21:02 POC Glucose 156 H 136 H 127 H Discharge Diet: 1800 Calorie Control Diet Discharge Activity: Return to Normal Activity Call your doctor if you observe: Shortness of breath, Dizziness, Fainting spells, Chest pain Home Medications: Medications to take at Discharge Amoxicillin/Potassium Clav [Augmentin 875-125 Tablet] 1 each PO BID 02/27/19 Gabapentin [Neurontin] 100 mg PO BID 02/27/19 Insulin Glargine,Hum.rec.anlog [Lantus Solostar] 10 unit SQ QHS 02/27/19 Multivit-Min/FA/Lycopen/Lutein [Sentry Senior Tablet] 1 each PO DAILY 02/27/19 Ranitidine HCl 150 mg PO DAILY 02/27/19 Primary Care Physician: Maxx Peña MD [Primary Care Provider] - Please follow up with your Primary Care Physician in: 1 Week Disposition: Home Minutes spent on discharge:: 35 Patient Condition:: Stable Medical Necessity - Tobacco Use Smoking Status: Never smoker Tobacco Use: Non-smoker Meaningful Use Info Meaningful Use Diagnoses (Choose all that apply): None applicable <Floyd Isidro - Last Filed: 02/28/19 12:06> Discharge Date and Diagnosis - Secondary Discharge Diagnosis Chronic Problems Obesity (BMI 30.0-34.9) (Chronic) Diabetes mellitus, type II (Chronic) GERD (gastroesophageal reflux disease) (Chronic) Hospital Course and Treatment Imaging Results: 02/28/19 08:11 Nuclear Stress Test - Chemical [NM] Stat Summary of Care Provided: This patient was seen in conjunction with SUNNY Youngblood . I have independently interviewed and examined the patient and reviewed pertinent historical, laboratory, and other data. Please refer to SUNNY Youngblood note for details of this patient's presentation, findings, and recommendations. I have reviewed SUNNY Youngblood note and concur with documented findings. In brief, patient is a 68-year-old lady with past medical history scant for GERD, diabetes mellitus type 2 chronic headaches who presented with chest pain. Patient was placed on a monitored bed [place] was ruled out with serial cardiac enzymes. Patient subsequently underwent a nuclear stress test which was negative for stress-induced ischemia Hospital course: As dictated above by Riri Lopez NP?C - Physical Exam Vital Signs Temp Pulse Resp BP Pulse Ox 97.4 F L 70 16 149/67 H 100 02/28/19 11:20 02/28/19 11:20 02/28/19 11:20 02/28/19 11:20 02/28/19 11:42 Oxygen Delivery Method Room Air Weight: 94.166 kg Body Mass Index (BMI) 34.5 Intake and Output for Last 24 Hours 02/26/19 02/27/19 02/28/19 23:59 23:59 23:59 Intake Total 848 / 848 703 / 703 Output Total 400 / 400 600 / 600 Balance 448 / 448 103 / 103 Laboratory Tests Past 24 Hrs 02/27/19 02/27/19 02/27/19 16:22 16:22 16:22 WBC 8.7 RBC 4.33 Hgb 13.3 Hct 39.8 MCV 91.9 MCH 30.7 MCHC 33.4 RDW 13.2 RDW Differential 44.2 H Plt Count 290 MPV 8.7 Immature Gran % (Auto) 0.100 Neut % (Auto) 60.9 Lymph % (Auto) 30.0 [place] % (Auto) 6.3 Eos % (Auto) 2.5 Baso % (Auto) 0.2 Absolute Neuts (auto) 5.3 Absolute Lymphs (auto) 2.61 Total Counted Not Reportable PT Cancelled INR Cancelled APTT Cancelled Sodium 140 Potassium 4.0 Chloride 106 Carbon Dioxide 28.0 Anion Gap 6 BUN 20 H Creatinine 0.90 Estim Creat Clear Calc 53.83 Est GFR (MDRD) Af Amer 80 Est GFR (MDRD) Non-Af 66 BUN/Creatinine Ratio 22.1 H Glucose 151 H Calcium 9.6 Magnesium Total Bilirubin AST ALT Alkaline Phosphatase Troponin I < 0.015 Total Protein Albumin Globulin Albumin/Globulin Ratio Triglycerides Cholesterol LDL Cholesterol VLDL Cholesterol HDL Cholesterol 02/27/19 02/27/19 02/27/19 17:30 19:55 20:14 WBC RBC Hgb Hct MCV MCH MCHC RDW RDW Differential Plt Count MPV Immature Gran % (Auto) Neut % (Auto) Lymph % (Auto) [place] % (Auto) Eos % (Auto) Baso % (Auto) Absolute Neuts (auto) Absolute Lymphs (auto) Total Counted PT 12.7 INR 1.0 APTT 28.6 Sodium Potassium Chloride Carbon Dioxide Anion Gap BUN Creatinine Estim Creat Clear Calc Est GFR (MDRD) Af Amer Est GFR (MDRD) Non-Af BUN/Creatinine Ratio Glucose Calcium Magnesium 1.8 Total Bilirubin AST ALT Alkaline Phosphatase Troponin I < 0.015 Total Protein Albumin Globulin Albumin/Globulin Ratio Triglycerides Cholesterol LDL Cholesterol VLDL Cholesterol HDL Cholesterol 02/27/19 02/28/19 02/28/19 23:00 05:07 05:07 WBC 6.8 RBC 4.04 L Hgb 11.8 L Hct 36.9 L MCV 91.3 MCH 29.2 MCHC 32.0 RDW 13.0 RDW Differential 42.3 Plt Count 265 MPV 8.5 Immature Gran % (Auto) Neut % (Auto) Lymph % (Auto) [place] % (Auto) Eos % (Auto) Baso % (Auto) Absolute Neuts (auto) Absolute Lymphs (auto) Total Counted PT INR APTT Sodium 143 Potassium 4.0 Chloride 109 H Carbon Dioxide 25.0 Anion Gap 9 BUN 19 H Creatinine 0.76 Estim Creat Clear Calc 48.45 Est GFR (MDRD) Af Amer 98 Est GFR (MDRD) Non-Af 81 BUN/Creatinine Ratio 25.1 H Glucose 116 H Calcium 8.4 L Magnesium Total Bilirubin 0.30 AST 15 ALT 22 Alkaline Phosphatase 88 Troponin I < 0.015 Total Protein 6.3 L Albumin 2.8 L Globulin 3.5 Albumin/Globulin Ratio 0.8 L Triglycerides 122 Cholesterol 151 LDL Cholesterol 72 VLDL Cholesterol 24 HDL Cholesterol 55 POC Glucose 02/28/19 02/28/19 02/27/19 11:19 06:51 21:02 POC Glucose 156 H 136 H 127 H Code Visit OBSV E&M: [id number] Observation care discharge
== END 2019-02-28 11:53 | disposition home or self-care (01) ==
LOC: ED 19:45 → PCU 19:47
PROVIDERS: Admitting Provider Family Medicine; Emergency Provider Emergency Medicine; Family Provider Family Medicine; PCP Family Medicine; Visit Provider Internal Medicine
DX: R07.89 Other chest pain (principal); R42 Dizziness and giddiness; R20.2 Paresthesia of skin; E11.40 Type 2 diabetes mellitus with diabetic neuropathy, unspecified; K21.9 Gastro-esophageal reflux disease without esophagitis; E66.9 Obesity, unspecified; Z68.34 Body mass index [BMI] 34.0-34.9, adult; Z71.3 Dietary counseling and surveillance; N39.0 Urinary tract infection, site not specified; Z79.899 Other long term (current) drug therapy; Z79.4 Long term (current) use of insulin
CPT/HCPCS: 36415; 71045; 78452; 80048; 80053; 80061; 82962; 83735; 84484; 85025; 85027; 85610; 85730; 93005; 93017; 96360; 96361; 97802; 99218; 99285; A9500; J7030; A4216; G0378; J2785

== ENCOUNTER 2019-11-11 19:25 | Emergency (ER) | payer MEDICARE, OTHER, SELFPAY ==
[2019-02-27 20:08] VITALS: BMI 34.5
[2019-11-11 19:26] VITALS: BP 103/63; PULSE 92; RESP 17; TEMP 36.2; O2SAT 100; BMI 36.8
--- NOTE | 2019-11-11 19:39 | EKG12_ITS ---
Test Reason : CP Blood Pressure : / mmHG Vent. Rate : 083 BPM Atrial Rate : 083 BPM P-R Int : 136 ms QRS Dur : 082 ms QT Int : 372 ms P-R-T Axes : 050 -32 032 degrees QTc Int : 437 ms Normal sinus rhythm Left axis deviation Abnormal ECG Confirmed by ODETTE DYE, COREY ([id number]), medical transcription editor LEEROY TREADWELL ([id number]) on 11/16/2019 2:32:16 PM Referred By: PILAR Confirmed By:KEITH PINO MD
--- NOTE | 2019-11-11 19:50 | RAD_ITS ---
STUDY: X-RAY CHEST REASON FOR EXAM: Female, 69 years old. chest pain TECHNIQUE: AP COMPARISON: None. FINDINGS: EKG The lungs are clear and expanded. There is no demonstrated pleural abnormality. Normal size heart. Normal mediastinum and james. Normal visualized pulmonary arteries. Normal visualized aortic arch and descending thoracic aorta. Normal visualized thoracic spine. Normal visualized ribs, clavicles, and shoulders. There is no demonstrated abnormality of the visualized soft tissue structures of the upper abdomen. RAD/Chest 1 View (Portable) IMPRESSION: Stable, nonacute portable x-ray examination of the chest. Electronically Signed: Geovany Fountain MD ([place]) at 20:03 EST , Service support ,
[2019-11-11 19:51] VITALS: O2SAT 98
[2019-11-11 20:06] LABS: Absolute Lymphocyte Count 2.83 X10^3/uL (0.83-4.51); Absolute Neutrophil Count 4.7 X10^3/uL (2.0-7.7); Basophil# 0.04 X10^3/uL; Basophil% 0.5 % (0-1); Eosinophil# 0.25 X10^3/uL; Hematocrit 39.8 % (37-47); Lymphocyte # 2.83 X10^3/ul (4.0); Lymphocyte % 33.5 % (19-41); Mean Corp Hgb Conc 32.7 g/dL (32-36); Mean Corpuscular Hgb 30.7 pg (27.0-32.0); Mean Corpuscular Volume 94.1 fL (81-99); Mean Platelet Vol. 8.6 fl (6.2-12.0); Monocyte# 0.61 X10^3/uL; Monocyte% 7.2 % (0-10); NRBC Flagged by Analyzer 0 % (0-5); Neutrophil % 55.4 % (47-70); Platelet Count 268 K/mm3 (150-450); RBC Distribution Width CV 12.6 % (11.6-14.6); RBC Distribution Width SD 43.4 fl (35.1-43.9); Red Blood Count 4.23 M/mm3 (4.2-5.4); White Blood Count 8.5 K/mm3 (4.4-11.0)
[2019-11-11 20:19] LABS: Prothrombin Time (Protime)PT. 12.7 SECONDS (11.7-14.9)
[2019-11-11 20:25] LABS: Anion Gap 6 (5-15); BUN 24 mg/dL (7-18); BUN/Creat Ratio 24.8 RATIO (10-20); Calcium,Total 9.6 mg/dL (8.5-10.1); Chloride 108 mmol/L (98-107); Creatinine, Serum 0.97 mg/dL (0.55-1.02); EST Glomerular Filtration Rate 61 mL/min (>60); Est Glom Filt Rate - Afr Amer 73 mL/min (>60); Estimated Creatinine Clearance 51.24 ml/min; Glucose 135 mg/dL (74-106); Sodium Level 141 mmol/L (136-145)
[2019-11-11 20:35] VITALS: BP 151/89; PULSE 79; RESP 14; O2SAT 97
[2019-11-11 20:36] LABS: Bacteria 0 SEEN /hpf (None Seen); Mucous, Urine 0 SEEN /hpf (<or=2+); Red Blood Cells-Urine 0 SEEN /hpf (0-5)
[2019-11-11 20:38] LABS: Color, Urine Yellow (Yellow); Glucose, Dipstick 1000 mg/dl (Normal); Ketone-Dipstick Negative (Negative); Leukocyte Esterase-Dipstick 25 /ul (Negative); Nitrite-Dipstick Negative (Negative); Occult Blood-Urine 10 /ul (Negative); Protein-Dipstick Negative (Negative); Urine Bilirubin Dipstick Negative (Negative); Urine Clarity Clear (Clear); Urine Urobilinogen Normal (Normal)
[2019-11-11 20:51] LABS: Squamous Epithelial Cells - UA 0-5 SEEN /hpf (5-10); White Blood Cells 0-5 SEEN /hpf (0-5)
[2019-11-11 21:12] VITALS: BP 153/80; PULSE 76; RESP 13; O2SAT 100
[2019-11-11 23:05] VITALS: BP 148/90; PULSE 79; RESP 15; O2SAT 97
--- NOTE | 2019-11-11 23:33 | ED.VISSUMM ---
- ER Visit Summary Date of Service: 11/11/19 Chief Complaint: Chest pain History of Present Illness: The patient is a 69 F who presents with right facial and neck pain that has been waxing and waning over the past 4 days. Patient states her pain is worse with exertion. Patient admits to nausea but denies any vomiting. Patient denies any diaphoresis. Patient admits to some shortness of breath and cough. Patient admits to some fatigue. Patient states the pain radiates to the right upper chest. Patient admits to some right eye pain. Patient admits to some mild weakness in her right lower extremity. Patient states she has some abdominal pain that is worse with eating. Patient states this is been constant for the past 3 days. Patient admits to nausea but denies any vomiting. Physical Examination: Vital signs are stable. Patient is afebrile. Patient is in no acute distress. Pupils are equal, round, and reactive to light bilaterally. Extraocular muscles are intact. Oral mucosa is pink and moist. Neck is supple. Trachea is midline. There is no JVD. Heart was regular rate and rhythm. Lungs are clear and equal bilaterally. Abdomen is soft. Bowel sounds are normal. There is no tenderness. Cranial nerves II through XII are intact. There are no focal motor or sensory deficits noted. Test Results: CBC, basic metabolic profile, PT with INR, urinalysis, and troponin were obtained were all within normal limits. EKG showed normal sinus rhythm with a rate of 83. There are no acute ST or T wave changes. Portable chest x-ray was obtained. There is no acute cardiopulmonary process. This was interpreted by the radiologist and reviewed by myself. Emergency Department Course and Treatment: Patient was not given aspirin due to her allergy. Patient was observed here in the emergency department. Patient had no further episodes of pain in her chest. Patient ambulated in the hallway without difficulty. Patient has a HEART score of 3. Patient has a TALITA risk score of 1. Patient was advised that this is low risk for acute cardiac event. Patient was instructed to follow-up with her primary care physician in 5 to 7 days. Patient understood and was agreeable with the plan. All questions were answered. Disposition: Discharge home Impression: Neck pain This note was generated with [employer] dictation software. It may contain incorrect words, spelling, and punctuation that were not noted in review of the chart prior to signing ED Disposition - Plan for ED Patient: Disposition: Home or Assisted Living Diagnosis: Neck pain, Facial pain Instructions: NECK PAIN, No Trauma Referrals: Maxx Peañ MD [Primary Care Provider] - 3-5 Days
[2019-11-12 00:09] VITALS: BP 139/81; PULSE 86; RESP 16; O2SAT 96
== END 2019-11-12 00:10 | disposition home or self-care (01) ==
PROVIDERS: Emergency Provider Emergency Medicine; PCP Family Medicine
DX: M54.2 Cervicalgia (principal); R10.9 Unspecified abdominal pain; R51 Headache; H57.11 Ocular pain, right eye; E11.9 Type 2 diabetes mellitus without complications; R11.0 Nausea; R05 Cough; R06.02 Shortness of breath; R53.83 Other fatigue; R53.1 Weakness; E66.9 Obesity, unspecified; Z79.84 Long term (current) use of oral hypoglycemic drugs; Z79.899 Other long term (current) drug therapy
CPT/HCPCS: 71045; 80048; 81001; 84484; 85025; 85610; 93005; 99284; A4216

== ENCOUNTER 2020-03-18 05:33 | Emergency (ER) | payer MEDICARE, OTHER, SELFPAY ==
[2020-03-18 05:35] VITALS: BP 130/69; PULSE 88; RESP 25; TEMP 37; O2SAT 98; BMI 37.9
--- NOTE | 2020-03-18 05:41 | EKG12_ITS ---
Test Reason : DYSRHYTHMIA Blood Pressure : / mmHG Vent. Rate : 083 BPM Atrial Rate : 083 BPM P-R Int : 136 ms QRS Dur : 082 ms QT Int : 384 ms P-R-T Axes : 027 -14 019 degrees QTc Int : 451 ms Normal sinus rhythm Normal ECG Confirmed by AL DYE, ELIZABETH ([id number]), editor school photograph LEEROY TREADWELL ([id number]) on 03/22/2020 11:10:38 AM Referred By: MARCIE Confirmed By:ELIZABETH MELENDEZ MD
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
[2020-03-18 05:58] LABS: Absolute Lymphocyte Count 2.11 X10^3/uL (0.83-4.51); Absolute Neutrophil Count 4.8 X10^3/uL (2.0-7.7); Basophil# 0.04 X10^3/uL; Basophil% 0.5 % (0-1); Eosinophil# 0.47 X10^3/uL; Eosinophils% 5.8 % (0-5); Hematocrit 36.8 % (37-47); Hemoglobin 11.8 g/dL (12.0-15.0); Lymphocyte # 2.11 X10^3/ul (4.0); Lymphocyte % 25.9 % (19-41); Mean Corp Hgb Conc 32.1 g/dL (32-36); Mean Corpuscular Hgb 31.4 pg (27.0-32.0); Mean Corpuscular Volume 97.9 fL (81-99); Mean Platelet Vol. 8.5 fl (6.2-12.0); Monocyte# 0.63 X10^3/uL; Monocyte% 7.7 % (0-10); NRBC Flagged by Analyzer 0 % (0-5); Neutrophil # 4.79 X10^3/uL (2.7-7.7); Neutrophil % 58.9 % (47-70); Platelet Count 284 K/mm3 (150-450); RBC Distribution Width CV 13.2 % (11.6-14.6); RBC Distribution Width SD 47.2 fl (35.1-43.9); Red Blood Count 3.76 M/mm3 (4.2-5.4); White Blood Count 8.1 K/mm3 (4.4-11.0)
[2020-03-18 06:13] LABS: Anion Gap 5 (5-15); BUN 12 mg/dL (7-18); BUN/Creat Ratio 15.1 RATIO (10-20); Calcium,Total 9.1 mg/dL (8.5-10.1); Chloride 103 mmol/L (98-107); Creatinine, Serum 0.79 mg/dL (0.55-1.02); EST Glomerular Filtration Rate 76 mL/min (>60); Est Glom Filt Rate - Afr Amer 92 mL/min (>60); Glucose 222 mg/dL (74-106); International Normalized Ratio 1.1; Potassium 3.9 mmol/L (3.5-5.1); Prothrombin Time (Protime)PT. 13.5 SECONDS (11.7-14.9); Sodium Level 137 mmol/L (136-145)
[2020-03-18] MEDS: APIXABAN 5 MG TABLET 10 MG PO (07:30)
[2020-03-18 09:54] VITALS: BP 116/97; PULSE 79; RESP 16; O2SAT 96
--- NOTE | 2020-03-18 09:55 | ED.RN ---
IV DC'ED, CATHETER INTACT, SMALL GAUZE DRESSING PLACED. DISCHARGE INSTRUCTIONS GIVEN TO AND REVIEWED WITH PATIENT, PATIENT DENIES QUESTIONS OR CONCERNS AND VOICES UNDERSTANDING OF DISCHARGE INSTRUCTIONS. PT TO HOSPITAL [facility]AN VIA WHEELCHAIR.
== END 2020-03-18 09:55 | disposition home or self-care (01) ==
PROVIDERS: Emergency Provider Emergency Medicine; PCP Family Medicine
DX: I26.99 Other pulmonary embolism without acute cor pulmonale (principal); S20.212A Contusion of left front wall of thorax, initial encounter; V89.2XXA Person injured in unspecified motor-vehicle accident, traffic, initial encounter; Y93.9 Activity, unspecified; Y92.9 Unspecified place or not applicable; Y99.9 Unspecified external cause status; E11.9 Type 2 diabetes mellitus without complications; K21.9 Gastro-esophageal reflux disease without esophagitis; Z79.4 Long term (current) use of insulin; Z79.899 Other long term (current) drug therapy
CPT/HCPCS: 71275; 80048; 85025; 85610; 85730; 93005; 99285; Q9967; A4216

== ENCOUNTER → 2020-07-26 15:19 | Outpatient (CLI) | payer MEDICARE, OTHER, SELFPAY ==
--- NOTE | 2020-07-26 15:31 | VDLE_ITS ---
Reason For Study: Lumbar stenosis RIGHT LEFT GSV is normal. GSV is normal. CFV is compressible, spontaneous, phasic, CFV is compressible, spontaneous, phasic, competent and demonstrates normal competent, and demonstrates normal augmentation. augmentation. FV is compressible, spontaneous, phasic, FV is compressible, spontaneous, phasic, competent and demonstrates normal competent and demonstrates normal augmentation. augmentation. POP V is compressible, spontaneous, phasic, POP V is compressible, spontaneous, phasic, competent and demonstrates normal competent and demonstrates normal augmentation. augmentation. T/P Trunk is compressible. T/P Trunk is compressible. PTV is compressible. PTV is compressible. RT PerV is compressible. LT PerV is compressible. Procedure This is a venous duplex using B-mode, color flow and spectral Doppler. Exam performed in department. A preliminary report was called and/or faxed to [facility]. Interpretation Summary Deep veins of the lower extremities are bilaterally patent and compressible segmentally. There is no evidence of deep vein thrombosis on either side. Valvular competence appears intact within the proximal deep venous systems bilaterally. The great saphenous veins appear bilaterally patent and compressible segmentally. Ordering Physician: ELIZABETH CONRAD Referring Physician: Maxx Peña Performed By: Keeley Yi RVT
== END ==
PROVIDERS: PCP Family Medicine
DX: M48.062 Spinal stenosis, lumbar region with neurogenic claudication (principal); M79.662 Pain in left lower leg; M79.661 Pain in right lower leg
CPT/HCPCS: 93970

== ENCOUNTER → 2021-05-10 10:23 | Outpatient (CLI) | payer MEDICARE, OTHER, SELFPAY ==
--- NOTE | 2021-05-10 10:35 | RAD_ITS ---
STUDY: X-RAY - PELVIS AND RIGHT HIP REASON FOR EXAM: Female, 70 years old. Right leg weakness. TECHNIQUE: 4 views of the pelvis and hip. COMPARISON: None. FINDINGS: There is a non-specific bowel gas pattern. Normal visualized soft tissue structures. Osteopenia. Mild arthrosis of the sacroiliac joints. Normal bilateral superior and inferior pubic rami. Normal pubic symphysis. Normal bilateral ischial tuberosities. Osteoarthritic changes of both hips, left greater than right. RAD/HIP, UNI W/ Pelvis 2-3 Views IMPRESSION: Osteopenia with mild arthrosis of the sacroiliac joints. Osteoarthritic changes of both lungs, left greater than right. No acute abnormality, erosive changes or periostitis. Electronically Signed: Asad Galeas MD at 13:53 EDT , Service support ,
== END ==
PROVIDERS: PCP Family Medicine
DX: R29.898 Other symptoms and signs involving the musculoskeletal system (principal)
CPT/HCPCS: 73502

== ENCOUNTER → 2021-07-04 12:49 | Outpatient (CLI) | payer MEDICARE, OTHER, SELFPAY ==
--- NOTE | 2021-07-04 12:52 | CT_ITS ---
STUDY: CTA CHEST REASON FOR EXAM: Female, 70 years old. SHORTNESS OF BREATH RADIATION DOSAGE (If Supplied By Facility): CTDIvol = ( 11.45 ) mGy, DLP = ( 415.82 ) mGycm TECHNIQUE: The examination was performed with the intravenous administration of IV 100mL Isovue-370. Post-processing of the angiographic images was performed, with multiplanar reformation and 3D reconstruction. Individualized dose optimization techniques were used for this CT. COMPARISON: None. FINDINGS: Normal enhancement of the main pulmonary artery and right and left pulmonary arteries. Normal enhancement of the bilateral peripheral pulmonary arteries. There is no demonstrated pulmonary embolism. Normal thoracic aorta and visualized great vessels. There is no demonstrated aortic dissection. Normal heart and pericardium. Normal mediastinum. Normal hilar regions. Normal visualized trachea and bronchi. The lungs are well expanded. Mild patchy groundglass densities bilaterally. Normal pleura. Normal chest wall structures. Degenerative vertebral changes. Normal visualized upper abdomen. CT/CTA Chest W/WO Contrast IMPRESSION: No demonstrated pulmonary embolism or arterial dissection. Mild patchy groundglass densities bilaterally. Electronically Signed: Carlos Eduardo Cordero DO at 16:19 EDT Tel [phone], Service support ,
[2021-07-05 07:54] LABS: CREATININE FINGERSTICK 0.81 mg/dL (0.55-1.02); EGFR FINGERSTICK > 60 mL/min (>60)
== END ==
DX: R06.02 Shortness of breath (principal)
CPT/HCPCS: 71275; Q9967

== ENCOUNTER → 2021-07-10 11:19 | Outpatient (CLI) | payer MEDICARE, OTHER, SELFPAY ==
[2021-07-10 12:41] LABS: Vitamin B12 875 pg/mL (211-911)
[2021-07-11 16:09] LABS: Free Kappa Light Chains 18.6 mg/L (3.3-19.4); Free Lambda Light Chains 13.9 mg/L (5.7-26.3)
== END ==
PROVIDERS: Referring Provider Psychiatry & Neurology Neurology; Visit Provider Psychiatry & Neurology Neurology
DX: G62.9 Polyneuropathy, unspecified (principal)
CPT/HCPCS: 36415; 82607; 82746; 83883

== ENCOUNTER → 2021-07-26 09:50 | Outpatient (CLI) | payer MEDICARE, OTHER, SELFPAY ==
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
== END ==
PROVIDERS: Referring Provider Psychiatry & Neurology Neurology; Visit Provider Psychiatry & Neurology Neurology
DX: M54.2 Cervicalgia (principal); R29.898 Other symptoms and signs involving the musculoskeletal system
CPT/HCPCS: 95886; 95910

== ENCOUNTER → 2021-07-28 10:00 | Outpatient (CLI) | payer MEDICARE, OTHER, SELFPAY ==
--- NOTE | 2021-07-28 10:01 | MRI_ITS ---
STUDY: MRI CERVICAL SPINE WITHOUT CONTRAST REASON FOR EXAM: Female, 70 years old. Neck pain, Lt hand numbness and tingling TECHNIQUE: Standardized fat and water weighted pulse sequences were obtained in the sagittal and axial planes. COMPARISON: None FINDINGS: Normal foramen magnum and brainstem-cervical cord junction. Normal craniovertebral junction. Normal anterior atlantoaxial articulation. Normal odontoid process. Normal cervical lordosis. Normal vertebral bodies and posterior osseous elements. C2-3: Normal endplates. Normal disc height, signal and morphology. Normal central canal and intervertebral neural foramina. C3-4: Normal endplates. Normal disc height, signal and morphology. Normal central canal and intervertebral neural foramina. C4-5: Normal endplates. Normal disc height, signal and morphology. Normal central canal and intervertebral neural foramina. C5-6: Mild broad disc osteophyte complex produces moderate spinal stenosis with abutment of the central spinal cord but no neural foraminal stenosis. C6-7: Moderate broad discussed by complex produces moderate spinal stenosis with abutment of the central spinal cord and mild bilateral neural foraminal stenosis. C7-T1: Normal endplates. Normal disc height, signal and morphology. Normal central canal and intervertebral neural foramina. Normal cervical cord. Normal visualized soft tissue structures. MRI/Spine Cervical (Routine) IMPRESSION: Multilevel degenerative changes, as described above. Electronically Signed: Maxx Girard MD at 16:23 EDT Tel , Service support ,
--- NOTE | 2021-07-28 10:01 | MRI_ITS ---
STUDY: MRI LUMBAR SPINE WITHOUT CONTRAST REASON FOR EXAM: Female, 70 years old. Failed Back Syndrome TECHNIQUE: Standardized fat and water weighted pulse sequences were obtained in the sagittal and axial planes. COMPARISON: None FINDINGS: T12-L1: Normal endplates. Normal disc height, hydration and morphology. Normal bilateral facet joints. Normal central canal and bilateral lateral recesses. Normal bilateral intervertebral neural foramina. Normal lumbar lordosis. There is no substantial scoliosis. Normal conus medullaris that terminates at the L1/L2. L1-2: Mild bilateral facet hypertrophy and ligament flavum hypertrophy. Mild bilobed disc protrusion produces mild spinal stenosis and mild bilateral neural foraminal stenosis. L2-3: Mild bilateral facet hypertrophy and ligament flavum hypertrophy. Mild broad disc protrusion produces mild spinal stenosis and mild bilateral neural foraminal stenosis. L3-4: Large central disc protrusion with a superiorly extending right paracentral disc protrusion produces severe spinal stenosis with severe bilateral lateral recess stenosis with effacement of the L4 nerve roots bilaterally and mild right neural foraminal stenosis. L4-5: Status post posterior decompression and transpedicular fixation with anatomic alignment with no spinal stenosis or neural foraminal stenosis. L5-S1: Status post posterior decompression and transpedicular fixation with 2 mm retrolisthesis of L5 on S1 with mild spinal stenosis relieved by the posterior decompression and mild bilateral neural foraminal stenosis. Normal visualized sacral ala. Normal visualized paraspinous soft tissue structures. MRI/Spine Lumbar (Routine) IMPRESSION: Postsurgical changes from L4 through S1 with severe degenerative disc disease at L3/L4 with severe spinal stenosis and severe bilateral lateral recess stenosis. Electronically Signed: Maxx Girard MD at 13:13 EDT Tel , Service support ,
== END ==
PROVIDERS: Referring Provider Psychiatry & Neurology Neurology; Visit Provider Psychiatry & Neurology Neurology
DX: M54.2 Cervicalgia (principal); R20.0 Anesthesia of skin; R20.2 Paresthesia of skin; M96.1 Postlaminectomy syndrome, not elsewhere classified
CPT/HCPCS: 72141; 72148

== ENCOUNTER 2021-09-15 07:43 | Emergency (ER) | payer MEDICARE, OTHER, SELFPAY ==
[2021-09-15 07:44] VITALS: BP 157/73; PULSE 79; RESP 18; TEMP 36.6; O2SAT 99; BMI 41.9
--- NOTE | 2021-09-15 07:57 | CT_ITS ---
HISTORY: Evaluate for pulmonary embolism. TECHNIQUE: Helically acquired images of the chest following IV contrast as per pulmonary angiogram protocol with 2D and 3D reconstructions. A radiation dose optimization technique was used for this scan. IV Contrast dosage and agent: 100 mL Isovue-370. # of images incl. paperwork: [id number]. COMPARISON: 07/04/2021. FINDINGS: CENTRAL AIRWAYS: Patent. LUNGS: Minimal dependent bilateral atelectasis. PLEURA: No pneumothorax or pleural effusion. PULMONARY ARTERIES: No filling defect. HEART/PERICARDIUM: Heart within normal limits in size. No significant pericardial effusion. AORTA: No aortic aneurysm or dissection flap. MEDIASTINUM/BRUNA: No enlarged lymph nodes. OSSEOUS STRUCTURES: Diffuse idiopathic skeletal hyperostosis. Lumbar spinal fusion hardware. UPPER ABDOMEN: Cholecystectomy. Hepatic steatosis. Moderate stool in the colon. CT/CTA Chest W/WO Contrast IMPRESSION: No evidence for pulmonary embolism. Mild bilateral atelectasis. Individualized dose optimization techniques were used for this CT. at 0938 Reported and signed by: Ania Castellanos MD Electronically Signed: Ania Castellanos MD at 9:37 EST Tel , Service support ,
--- NOTE | 2021-09-15 07:57 | EKG12_ITS ---
Test Reason : Blood Pressure : / mmHG Vent. Rate : 070 BPM Atrial Rate : 070 BPM P-R Int : 128 ms QRS Dur : 084 ms QT Int : 406 ms P-R-T Axes : 021 -26 031 degrees QTc Int : 438 ms Normal sinus rhythm Normal ECG Confirmed by FRANCY DYE, DRU ([id number]), video editor LEEROY TREADWELL ([id number]) on 09/19/2021 9:37:09 AM Referred By: ROOSEVELT Confirmed By:DRU SEN MD
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
--- NOTE | 2021-09-15 08:10 | ED.RN ---
per dr. oneill, ok for pt to take your own prescription of opium,
[2021-09-15 08:27] VITALS: O2SAT 98
[2021-09-15 08:34] LABS: Absolute Lymphocyte Count 1.98 X10^3/uL (0.83-4.51); Absolute Neutrophil Count 5.6 X10^3/uL (2.0-7.7); Basophil# 0.03 X10^3/uL; Basophil% 0.4 % (0-1); Eosinophil# 0.03 X10^3/uL; Eosinophils% 0.4 % (0-5); Hematocrit 42.6 % (37-47); Hemoglobin 14.1 g/dL (12.0-15.0); Lymphocyte # 1.98 X10^3/ul (0.83-4.51); Lymphocyte % 23.7 % (19-41); Mean Corp Hgb Conc 33.1 g/dL (32-36); Mean Corpuscular Hgb 31.3 pg (27.0-32.0); Mean Corpuscular Volume 94.7 fL (81-99); Mean Platelet Vol. 8.7 fl (6.2-12.0); Monocyte# 0.63 X10^3/uL; Monocyte% 7.5 % (0-10); NRBC Flagged by Analyzer 0 % (0-5); Neutrophil # 5.61 X10^3/uL (2.7-7.7); Neutrophil % 66.9 % (47-70); Platelet Count 295 K/mm3 (150-450); RBC Distribution Width CV 12.5 % (11.6-14.6); RBC Distribution Width SD 43.5 fl (35.1-43.9); White Blood Count 8.4 K/mm3 (4.4-11.0)
[2021-09-15 08:48] LABS: Anion Gap 6 (5-15); BUN 15 mg/dL (7-18); BUN/Creat Ratio 17.2 RATIO (10-20); Calcium,Total 9.3 mg/dL (8.5-10.1); Chloride 105 mmol/L (98-107); Creatinine, Serum 0.87 mg/dL (0.55-1.02); EST Glomerular Filtration Rate 68 mL/min (>60); Est Glom Filt Rate - Afr Amer 82 mL/min (>60); Estimated Creatinine Clearance 51.96 ml/min; Glucose 115 mg/dL (74-106); Potassium 3.8 mmol/L (3.5-5.1); Sodium Level 141 mmol/L (136-145); Troponin-I HS 12 pg/mL (3.0-54.0)
[2021-09-15 09:39] VITALS: BP 151/55; PULSE 61; O2SAT 98
--- NOTE | 2021-09-15 09:42 | EKG12_ITS ---
Test Reason : Blood Pressure : / mmHG Vent. Rate : 059 BPM Atrial Rate : 059 BPM P-R Int : 130 ms QRS Dur : 088 ms QT Int : 422 ms P-R-T Axes : 038 -18 028 degrees QTc Int : 417 ms Sinus bradycardia Otherwise normal ECG Confirmed by FRANCY DYE, DRU ([id number]), pictures editor LEEROY TREADWELL ([id number]) on 09/19/2021 9:37:25 AM Referred By: ROOSEVELT Confirmed By:DRU SEN MD
[2021-09-15 10:08] VITALS: BP 176/82
[2021-09-15 11:20] VITALS: BP 156/75; PULSE 84; O2SAT 97
[2021-09-15 11:48] LABS: Troponin-I HS 11 pg/mL (3.0-54.0)
[2021-09-15 12:33] VITALS: BP 172/91; PULSE 70; RESP 13; O2SAT 95
== END 2021-09-15 12:34 | disposition home or self-care (01) ==
PROVIDERS: Emergency Provider Emergency Medicine
DX: R07.9 Chest pain, unspecified (principal); R07.1 Chest pain on breathing; R06.00 Dyspnea, unspecified; M06.9 Rheumatoid arthritis, unspecified; G89.29 Other chronic pain; E11.40 Type 2 diabetes mellitus with diabetic neuropathy, unspecified; E06.3 Autoimmune thyroiditis; K58.9 Irritable bowel syndrome, unspecified; M10.9 Gout, unspecified; H40.9 Unspecified glaucoma; Z79.4 Long term (current) use of insulin; Z79.899 Other long term (current) drug therapy; Z86.711 Personal history of pulmonary embolism; Z86.718 Personal history of other venous thrombosis and embolism; Z87.440 Personal history of urinary (tract) infections; Z96.651 Presence of right artificial knee joint
CPT/HCPCS: 71275; 80048; 84484; 85025; 93005; 99285; Q9967; A4216

== ENCOUNTER 2021-10-02 01:44 | Emergency (ER) | payer MEDICARE, OTHER, SELFPAY ==
[2021-10-02 01:45] VITALS: BP 175/91; PULSE 96; RESP 18; TEMP 35.6; O2SAT 98; BMI 43.0
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
[2021-10-02 02:30] LABS: Erythrocyte Sedimentation Rate 43 mm/hr (0-30)
[2021-10-02 02:32] LABS: Absolute Lymphocyte Count 1.96 X10^3/uL (0.83-4.51); Absolute Neutrophil Count 4.9 X10^3/uL (2.0-7.7); Basophil# 0.04 X10^3/uL; Basophil% 0.5 % (0-1); Eosinophil# 0.12 X10^3/uL; Eosinophils% 1.6 % (0-5); Hematocrit 42.6 % (37-47); Hemoglobin 13.8 g/dL (12.0-15.0); Lymphocyte # 1.96 X10^3/ul (0.83-4.51); Lymphocyte % 25.7 % (19-41); Mean Corp Hgb Conc 32.4 g/dL (32-36); Mean Corpuscular Hgb 31.1 pg (27.0-32.0); Mean Corpuscular Volume 95.9 fL (81-99); Mean Platelet Vol. 8.6 fl (6.2-12.0); Monocyte# 0.55 X10^3/uL; Monocyte% 7.2 % (0-10); NRBC Flagged by Analyzer 0 % (0-5); Neutrophil % 64.3 % (47-70); Platelet Count 289 K/mm3 (150-450); RBC Distribution Width CV 12.8 % (11.6-14.6); RBC Distribution Width SD 45.4 fl (35.1-43.9); Red Blood Count 4.44 M/mm3 (4.2-5.4); White Blood Count 7.6 K/mm3 (4.4-11.0)
[2021-10-02 02:35] LABS: Anion Gap 4 (5-15); BUN 14 mg/dL (7-18); BUN/Creat Ratio 16.1 RATIO (10-20); CRP 9.62 mg/L (0.0-3.0); Calcium,Total 8.7 mg/dL (8.5-10.1); Chloride 105 mmol/L (98-107); Creatinine, Serum 0.87 mg/dL (0.55-1.02); EST Glomerular Filtration Rate 68 mL/min (>60); Est Glom Filt Rate - Afr Amer 82 mL/min (>60); Estimated Creatinine Clearance 53.37 ml/min; Glucose 209 mg/dL (74-106); Potassium 4.1 mmol/L (3.5-5.1); Sodium Level 138 mmol/L (136-145)
[2021-10-02 02:43] VITALS: BP 138/78
[2021-10-02 03:24] VITALS: BP 138/78; PULSE 92; RESP 16; O2SAT 97
== END 2021-10-02 03:24 | disposition home or self-care (01) ==
PROVIDERS: Emergency Provider Emergency Medicine; PCP Internal Medicine; Visit Provider Emergency Medicine
DX: M16.12 Unilateral primary osteoarthritis, left hip (principal); M06.9 Rheumatoid arthritis, unspecified; E11.65 Type 2 diabetes mellitus with hyperglycemia; E11.40 Type 2 diabetes mellitus with diabetic neuropathy, unspecified; E11.36 Type 2 diabetes mellitus with diabetic cataract; E11.39 Type 2 diabetes mellitus with other diabetic ophthalmic complication; E66.01 Morbid (severe) obesity due to excess calories; Z68.41 Body mass index [BMI] 40.0-44.9, adult; Z79.4 Long term (current) use of insulin; M48.061 Spinal stenosis, lumbar region without neurogenic claudication; Z74.09 Other reduced mobility; G56.02 Carpal tunnel syndrome, left upper limb; H42 Glaucoma in diseases classified elsewhere; G89.29 Other chronic pain; M10.9 Gout, unspecified; Z87.440 Personal history of urinary (tract) infections; K58.9 Irritable bowel syndrome, unspecified; E28.2 Polycystic ovarian syndrome; Z86.718 Personal history of other venous thrombosis and embolism; M48.02 Spinal stenosis, cervical region; Z79.899 Other long term (current) drug therapy
CPT/HCPCS: 80048; 85025; 85652; 86140; 99282; A4216

== ENCOUNTER 2021-10-13 08:23 | Outpatient (CLI) | payer MEDICARE, OTHER, SELFPAY ==
--- NOTE | 2021-10-13 08:26 | CT_ITS ---
STUDY: CT PELVIS WITHOUT CONTRAST REASON FOR EXAM: Female, 71 years old. Left groin pain RADIATION DOSAGE (If Supplied By Facility): CTDIvol = ( 21.48 ) mGy, DLP = ( 746.76 ) mGycm TECHNIQUE: Transaxial imaging of the pelvis was performed with oral contrast, and without intravenous administration of contrast material. Individualized dose optimization techniques were used for this CT. COMPARISON: None. FINDINGS: Normal urinary bladder. The patient is status post hysterectomy. Normal visualized small intestine. Normal visualized colon. There is no pelvic fluid. There is no pelvic mass lesion or lymphadenopathy. Normal visualized pelvic arteries. There is a moderate-sized anterior abdominal wall hernia containing fat. The neck of the hernia measures 2.2 cm. There is no evidence of a inguinal hernia. Prior laminectomy and fusion in the lower lumbar spine. CT/Pelvis without IV Contrast IMPRESSION: Moderate size anterior abdominal wall hernia containing fat. The neck of the hernia measures 2.2 cm. No evidence of inguinal herniation. The patient is status post hysterectomy. Electronically Signed: Waqas Faulkner MD at 10:14 EST , Service support ,
== END 2021-10-13 23:59 | disposition short-term general hospital (02) ==
LOC: CT 08:25
PROVIDERS: PCP Internal Medicine; Referring Provider Surgery; Visit Provider Surgery
DX: R10.32 Left lower quadrant pain (principal)
CPT/HCPCS: 72192

== ENCOUNTER → 2022-02-05 | Outpatient (CLI) | payer MEDICARE, OTHER, SELFPAY ==
[2022-02-05 12:28] LABS: Hemoglobin A1c 6.9 % (3.8-5.6)
[2022-02-05 12:30] LABS: ALB/GLOB Ratio 0.7 RATIO (0.9-2.4); AST(SGOT) 33 U/L (15-37); Alanine Aminotransfer ALT/SGPT 48 U/L (13-56); Alkaline Phosphatase 115 U/L (45-117); Anion Gap 7 (5-15); BUN 12 mg/dL (7-18); BUN/Creat Ratio 15.9 RATIO (10-20); Calcium,Total 9.3 mg/dL (8.5-10.1); Chloride 106 mmol/L (98-107); Cholesterol 140 mg/dL (200); Creatinine, Serum 0.75 mg/dL (0.55-1.02); EST Glomerular Filtration Rate 81 mL/min (>60); Est Glom Filt Rate - Afr Amer 97 mL/min (>60); Globulin 4.1 g/dL (2.2-4.2); Glucose 126 mg/dL (74-106); High Density Lipoprotein 46 mg/dL; Potassium 4.1 mmol/L (3.5-5.1); Protein, Total 7.1 g/dL (6.4-8.2); Sodium Level 142 mmol/L (136-145); Thyroid Stim Hormone (TSH) 1.42 uIU/mL (0.358-3.74); Triglycerides 155 mg/dL; Very Low Density Lipoprotein 31 mg/dL (5-40)
[2022-02-05 15:44] LABS: Microalbumin,Random Urine 8.2 mg/L (NO RANGE EST.); Microalbumin:Creatinine Ratio 31.3 mg/g CRE (<30 mg/g CRE)
== END | disposition home or self-care (01) ==
LOC: BIMLAB 10:22
PROVIDERS: PCP Internal Medicine; Referring Provider Nurse Practitioner Family; Visit Provider Nurse Practitioner Family
DX: E11.69 Type 2 diabetes mellitus with other specified complication (principal); Z79.4 Long term (current) use of insulin; E66.9 Obesity, unspecified; R07.9 Chest pain, unspecified
CPT/HCPCS: 36415; 80053; 80061; 82043; 82570; 83036; 84443

== ENCOUNTER → 2022-03-05 | Outpatient (CLI) | payer MEDICARE, OTHER, SELFPAY ==
--- NOTE | 2022-03-05 14:18 | MRI_ITS ---
EXAM: MR RIGHT LOWER EXTREMITY WITHOUT INTRAVENOUS CONTRAST, HIP CLINICAL INDICATION: RIGHT HIP KUNALAN Technologist Notes pain low back and bilat hips, since [facility] 02/2020 TECHNIQUE: Multiplanar and multisequence MR images of the right hip without intravenous contrast. This report was created using [employer] report generation technology. COMPARISON: XR Feb 26 2022 10:42am FINDINGS: TENDONS: FLEXORS: Unremarkable. Intact. EXTENSORS/HAMSTRING: Unremarkable. Intact. ABDUCTORS: Unremarkable. Intact. ADDUCTORS: Unremarkable. Intact. ROTATORS: Unremarkable. Intact. MUSCLES: Unremarkable. Normal bulk and signal. FLUID: Unremarkable. No joint effusion. No trochanteric bursitis. LABRUM: Unremarkable. No evidence of a tear on this non-arthrogram exam. CARTILAGE: Unremarkable. Articular cartilage intact. BONES/JOINTS: Degenerative findings of the hips. There are diffuse degenerative changes of the visualized lumbar spine. There is post fusion changes with laminectomy and bone grafting at the lower lumbosacral region. No femoral neck fracture. No avascular necrosis of the femoral head. No suspicious bone marrow signal alteration. OTHER SOFT TISSUES: There is an umbilical hernia containing fat. MRI/Lower Ext Joint Only (Routine) IMPRESSION: 1. There is an umbilical hernia containing fat. 2. Degenerative findings of the hips. Electronically Signed: Rishi Nevarez MD at 18:17 EDT Reading Location ID and State: [facility] / [place] , Service support ,
--- NOTE | 2022-03-05 14:23 | MRI_ITS ---
EXAM: MR LEFT LOWER EXTREMITY WITHOUT INTRAVENOUS CONTRAST, HIP CLINICAL INDICATION: LEFT HIP PIAN Technologist Notes pain low back and bilat hips, since [facility] 02/2020 TECHNIQUE: Multiplanar and multisequence MR images of the left hip without intravenous contrast. This report was created using [employer] report generation technology. COMPARISON: XR Feb 26 2022 10:42am FINDINGS: TENDONS: FLEXORS: Unremarkable. Intact. EXTENSORS/HAMSTRING: Unremarkable. Intact. ABDUCTORS: Unremarkable. Intact. ADDUCTORS: Unremarkable. Intact. ROTATORS: Unremarkable. Intact. MUSCLES: Unremarkable. Normal bulk and signal. FLUID: Unremarkable. No joint effusion. No trochanteric bursitis. LABRUM: Unremarkable. No evidence of a tear on this non-arthrogram exam. CARTILAGE: Unremarkable. Articular cartilage intact. BONES/JOINTS: Degenerative findings of the hips. There are diffuse degenerative changes of the visualized lumbar spine. There is post fusion changes with laminectomy and bone grafting at the lower lumbosacral region. No femoral neck fracture. No avascular necrosis of the femoral head. No suspicious bone marrow signal alteration. OTHER SOFT TISSUES: There is an umbilical hernia containing fat. MRI/Lower Ext Joint Only (Routine) IMPRESSION: 1. There is an umbilical hernia containing fat. 2. Degenerative findings of the hips. Electronically Signed: Rishi Nevarez MD at 18:16 EDT Reading Location ID and State: [facility] [place] [facility] [place] / [place] , Service support ,
== END | disposition home or self-care (01) ==
LOC: MRI 14:18
PROVIDERS: PCP Internal Medicine; Visit Provider Orthopaedic Surgery
DX: M25.551 Pain in right hip (principal); M25.552 Pain in left hip
CPT/HCPCS: 73721

== ENCOUNTER → 2022-03-15 | Outpatient (CLI) | payer MEDICARE, OTHER, SELFPAY ==
[2022-03-15 11:25] LABS: Absolute Lymphocyte Count 1.87 X10^3/uL (0.83-4.51); Absolute Neutrophil Count 5.5 X10^3/uL (2.0-7.7); Basophil# 0.02 X10^3/uL; Basophil% 0.2 % (0-1); Eosinophil# 0.11 X10^3/uL; Eosinophils% 1.4 % (0-5); Hemoglobin 13.3 g/dL (12.0-15.0); Lymphocyte # 1.87 X10^3/ul (0.83-4.51); Mean Corp Hgb Conc 32.4 g/dL (32-36); Mean Corpuscular Hgb 31.1 pg (27.0-32.0); Mean Corpuscular Volume 95.8 fL (81-99); Monocyte# 0.64 X10^3/uL; Monocyte% 7.9 % (0-10); NRBC Flagged by Analyzer 0 % (0-5); Neutrophil # 5.45 X10^3/uL (2.7-7.7); Neutrophil % 66.9 % (47-70); Platelet Count 322 K/mm3 (150-450); RBC Distribution Width CV 13.2 % (11.6-14.6); RBC Distribution Width SD 46.4 fl (35.1-43.9); Red Blood Count 4.28 M/mm3 (4.2-5.4); White Blood Count 8.1 K/mm3 (4.4-11.0)
[2022-03-15 11:33] LABS: International Normalized Ratio 1.1; Prothrombin Time (Protime)PT. 13.4 SECONDS (11.7-14.9)
[2022-03-15 11:34] LABS: Partial Thromboplast Time 28.7 Seconds (24.1-36.2)
[2022-03-15 11:52] LABS: AST(SGOT) 33 U/L (15-37); Alanine Aminotransfer ALT/SGPT 48 U/L (13-56); Albumin, Serum 3.1 g/dL (3.2-5.0); Alkaline Phosphatase 127 U/L (45-117); Globulin 4.1 g/dL (2.2-4.2); Magnesium 2.1 mg/dL (1.6-2.6); Protein, Total 7.2 g/dL (6.4-8.2)
[2022-03-15 12:32] LABS: HIV - WCH Non-Reactive (Nonreactive); Hepatitis B Surface Antibody Non-Reactive; Hepatitis C Antibody Non-Reactive (Nonreactive)
[2022-03-16 19:14] LABS: Hepatitis A AB, Total Negative (Negative)
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
[2022-03-27 10:08] VITALS: BP 151/75; PULSE 88; RESP 16; TEMP 36.9; O2SAT 100; BMI 40.6
[2022-03-27] MEDS: Acetaminophen 500 MG Tablet 1000 MG PO (10:17)
[2022-03-27] MEDS: Lactated Ringers 1,000 ML 15 ML IV (10:18)
[2022-03-27 10:45] LABS: Bedside Glucose 194 mg/dL (74-106)
--- NOTE | 2022-03-27 10:58 | SUR.PREOP ---
This nurse spoke with Damon Morgan to let him know about pt rash on her belly, when rolling pt, the pt became incontinent of stool. The decision was made to cancel the surgery. Pt IV was d/c'd and pt was advised to follow up with Kendall gutierrez
== END | disposition home or self-care (01) ==
LOC: AC 03-27 09:47 → PAT 04-19 13:32
PROVIDERS: Anesthesiology; PCP Internal Medicine; Referring Provider Orthopaedic Surgery; Visit Provider Orthopaedic Surgery
DX: Z01.818 Encounter for other preprocedural examination (principal); Z79.4 Long term (current) use of insulin; M48.061 Spinal stenosis, lumbar region without neurogenic claudication; M51.26 Other intervertebral disc displacement, lumbar region; Z53.09 Procedure and treatment not carried out because of other contraindication; Z79.899 Other long term (current) drug therapy
CPT/HCPCS: 36415; 80076; 82962; 83735; 85025; 85610; 85730; 86703; 86706; 86708; 86803; 87081; J7120; J3475

== ENCOUNTER 2022-03-23 09:00 | Outpatient (RCR) | payer MEDICARE, OTHER, SELFPAY ==
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
--- NOTE | 2022-01-10 13:59 | HP.PTEVAL2_ITS ---
Patient's Visit Information TRISTEN GOMEZ is a 71 year old F referred to Physical Therapy by Michaela Palmer NP-C with a diagnosis of INTERVERTEBRAL DISC DEGENERATION L-S, RADICULOPATHY LUMBAR. Date of Evaluation: 01/10/22 Physical Therapist: Kalpesh Rogers, PT, Cert MDT, OCS - Visit Plan Frequency: 1x/Week Duration: 4 Weeks Plan: PT INTERVENTIONS AQUATIC THERAPY WITH POSTURAL EX'S,DLS ,LE STRENGTHENING AND FLEXABLITY , - Subjective Subjective: This 71 y/o female presents to physical therapy with lumbar pain with radicular symptoms .Patient has had lumbar pain 2019 . Patient symptoms have progressively worse. Located left > right lumbar with radicular symptoms bilateral legs. Aggravating walking, standing ,sitting, difficulty with bending and lifting due to pain and unable to bend knees. Alleviating factors rest . C/O paresthesia/tingling in legs. Patient needs to use rollator with gait . Pain affects ability to sleep throughout night. Coughing/sneezing-.Bowel/bladder -. Patient has had lumbar MRI disc issues, stenosis which patient needs orthopedic surgery and want A1AC < 7.0. Patient has x-rays DDD/stenosis. Patient has epidural injections in lumbar. Patient pain affects QOL and function with ADLS'. SOCIAL: . VOACTION: - Pain Bilateral Lower Extremity Intensity: 9 Pain Intensity Range: 10 Bilateral Back Intensity: 9 Pain Intensity Range: 10 - Objective Objective: POSTURE: mild forward posture ,hip/knees flexed ,knees valgus. NEURO: c/o paresthesia/tingling legs ,light touch intact, reflexes C5-6-7 1/3. PALAPTION: tender SI/LS. SYMMTIES: mild scoliosis. MMT: (peak force) - quads 14.5,hamstrings 12.3 ,hip flexion 2 .ankle WFL 4/5. LUMBAR ROM: flexion mod loss, extension severe loss, side glides mod loss. GAIT: ambulates with rollator forward posture hip/knees flexion ,knee valgus. BALANCE: fair + with fww. FLEXABLITY: hamstrings mod tight - Special Tests Slump test left side: Negative Slump test right side: Negative Left Straight Leg Raise: Negative Right Straight Leg Raise: Negative - Goals Goal 1:: I with Aquatic therapy for lumbar spine Goal Time Frame: 4-6 Weeks Goal 2:: Patient to demonstrate 50 % improvement with increase function and less pain Goal Time Frame: 4-6 Weeks Goal 3:: Patient to improve strength peak force of legs by 5-10 to improve gait Goal 4:: Patient to improve back oswestry by 5 points or > to improve QOL. Goal Time Frame: 4-6 Weeks Goal 5:: Patient to improve lumbar ROM for function of recovery to put on shoes Goal Time Frame: 4-6 Weeks - Rehabilitation Potential Physical Therapy Diagnosis: This patient has lumbar pain with radicular symptoms in legs affects walking needing rollator ,weakness in legs ,pain with position with motion testing thus benefit from skilled PT Rehabilitation Potential: Good - Anticipated Interventions Patient/Client Instruction: Educate patient on: Condition, Plan of Care For the Purpose of:: To decrease pain, To increase ROM, To improve muscle performance and motor function, To improve ability to perform ADL's, To increase tolerance to activity/condition/position, To improve ability of physical actions for home/community/work/leisure, To improve health of tissue, To decrease soft tissue restriction, To increase flexibility/ROM, To improve balance, To reduce risk of recurrence Therapeutic Exercise to Include: Strength training, Endurance training, Balance training, Body mechanics, Postural training, Flexibilty training, Dynamic Lumbar Stabilization For the Purpose of:: To decrease pain, To increase ROM, To improve muscle performance and motor function, To improve ability to perform ADL's, To increase tolerance to activity/condition/position, To improve ability of physical actions for home/community/work/leisure, To improve health of tissue, To decrease soft tissue restriction, To increase flexibility/ROM Thank you for the opportunity to evaluate your patient. For Medicare and Medicare HMO plans, please review the plan of care and approve it. It will need to be FAXED BACK to us at [phone] for Medicare purposes. For Medicare only, by signing this I certify the plan of care. Please let me know if there are questions or concerns regarding this plan of care. Physician Signature: ___Date:
--- NOTE | 2022-01-10 17:46 | HP.PTREVAL ---
Michaela Palmer, OPERATIONS SUPPORT COORDINATOR-C, It has been my pleasure to treat TRISTEN GOMEZ over the last 10 visits for RADICULOATHY ,CERVICAL REGION, SPINAL STENOSIS REGION. Please see the progress note below for an update on the physical therapy plan of care! Subjective: Patient states water ex's help some ,easier to exercise in the water Objective/Function: POSTURE: rounded shoulders head forward. PALPATION: tender UT/Levator. NEURO: c/o Paresthesia arms, reflexes C5-6-7 1/3. MMT: grossly 4-5,shoulder 4-/5. CERVICAL: MOD LIMITED LATERAL FLEXION/ROTATION,EXTENSION MOD /SEVERE LIMITED. FLEXION MIN LIMITED Plan Plan: PRECAUTION: RA,CERVICAL TRACTION INCREASE SYMPTOMS. PATIENT IS HIGHLY IRRITABLE. PT INTERVETIONS AQUATIC THERAPY FOR CERVICAL ROM.STRENGTHNEING ,POSTURAL EX';S ,ROM/STRENGTTHENING SHOULDERS Balance/Gait/Functional tests - Balance/Special Test Scores Oswestry Low Back Score: 40 Oswestry Neck Score: 22 Goals Goal 1:: Patient to improve HEP for cervical spine AND AQUATIC THERAPY( NEW GOALS) Goal Time Frame: 4-6 Weeks Goal Progress: Progressing Goal 2:: Patient to demonstrate 50% improvement with increase function and decrease pain. Goal Time Frame: 4-6 Weeks Goal Progress: Progressing Goal 3:: Patient to improve cervical ROM for function of recovery to ADLS's Goal Time Frame: 4-6 Weeks Goal Progress: Progressing Goal 4:: Patient to improve neck oswstrey by 5 points to improve function. Goal Time Frame: 4-6 Weeks Goal Progress: Progressing Goal 5:: Patient to improve ADLS' and light housework tasks with min limitations. Goal Time Frame: 4-6 Weeks Goal Progress: Progressing Anticipated Interventions Patient/Client Instruction: Educate patient on: Condition, Plan of Care For the Purpose of:: To decrease pain, To increase ROM, To improve muscle performance and motor function, To increase tolerance to activity/condition/position, To improve ability of physical actions for home/community/work/leisure, To improve health of tissue, To decrease soft tissue restriction, To increase flexibility/ROM, To prevent re-injury Therapeutic Exercise to Include: Strength training, Endurance training, Postural training, Flexibilty training, Active ROM For the Purpose of:: To decrease pain, To increase ROM, To improve muscle performance and motor function, To improve ability to perform ADL's, To increase tolerance to activity/condition/position, To improve ability of physical actions for home/community/work/leisure, To improve health of tissue, To decrease soft tissue restriction, To increase flexibility/ROM Manual Therapy Techniques to Include: Soft tissue mobilization For the Purpose of:: To decrease pain, To decrease swelling/inflammation, To improve nutrient delivery to tissue, To improve muscle performance and motor function, To improve health of tissue, To decrease soft tissue restriction, To increase flexibility/ROM TENS: Yes IF ES: Yes Cryotherapy (ice pack, ice massage): Yes Thermo therapy (hot pack): Yes Ultrasound (thermal/non thermal): Yes For the Purpose of:: To decrease pain, To increase ROM, To improve nutrient delivery to tissue, To increase oxygenation perfusion, To improve health of tissue, To decrease soft tissue restriction Please do not hesitate to contact me at [phone] by phone or if you have questions or concerns regarding this new plan of care! Sincerely, Kalpesh Rogers, PT, Cert MDT, OCS
--- NOTE | 2022-02-20 09:14 | HP.PTREVAL_ITS ---
Michaela Palmer, VEHICLE WINDOW TINTER-C, It has been my pleasure to treat TRISTEN GOMEZ over the last 20 visits for RADICULOATHY ,CERVICAL REGION, SPINAL STENOSIS REGION. Please see the progress note below for an update on the physical therapy plan of care! Subjective: Patient states therapy is helping left arm is slowly improving Objective/Function: POSTURE: ROUNDED SHOULDERS HEAD FORWARD. NEURO: C/O PARASTHESIA LEFT WAM REFLEXES C5-6-7 09/25. BUE:WFL ,shoulder flexion 150 degrees, abduction 140 degrees. MMT: 4/5 shoulders 4-/5 right ,left 3+/5 Plan Plan: PRECAUTION: RA,CERVICAL TRACTION INCREASE SYMPTOMS. PATIENT IS HIGHLY IRRITABLE. PT INTERVETIONS AQUATIC THERAPY FOR CERVICAL ROM.STRENGTHNEING ,POSTURAL EX';S ,ROM/STRENGTTHENING SHOULDERS Balance/Gait/Functional tests - Balance/Special Test Scores Oswestry Low Back Score: 40 Oswestry Neck Score: 15 Goals Goal 1:: Patient to improve HEP for cervical spine AND AQUATIC THERAPY( NEW GOALS) Goal Time Frame: 4-6 Weeks Goal Progress: Progressing Goal 2:: Patient to demonstrate 50% improvement with increase function and decrease pain. Goal Time Frame: 4-6 Weeks Goal Progress: Progressing Goal 3:: Patient to improve cervical ROM for function of recovery to ADLS's Goal Time Frame: 4-6 Weeks Goal Progress: Progressing Goal 4:: Patient to improve neck oswstrey by 5 points to improve function. Goal Time Frame: 4-6 Weeks Goal Progress: Progressing Goal 5:: Patient to improve ADLS' and light housework tasks with min limitations. Goal Time Frame: 4-6 Weeks Goal Progress: Progressing Anticipated Interventions Patient/Client Instruction: Educate patient on: Condition, Plan of Care For the Purpose of:: To decrease pain, To increase ROM, To improve muscle performance and motor function, To increase tolerance to activity/condition/position, To improve ability of physical actions for home/community/work/leisure, To improve health of tissue, To decrease soft tissue restriction, To increase flexibility/ROM, To prevent re-injury Therapeutic Exercise to Include: Strength training, Endurance training, Postural training, Flexibilty training, Active ROM For the Purpose of:: To decrease pain, To increase ROM, To improve muscle performance and motor function, To improve ability to perform ADL's, To increase tolerance to activity/condition/position, To improve ability of physical actions for home/community/work/leisure, To improve health of tissue, To decrease soft tissue restriction, To increase flexibility/ROM Manual Therapy Techniques to Include: Soft tissue mobilization For the Purpose of:: To decrease pain, To decrease swelling/inflammation, To improve nutrient delivery to tissue, To improve muscle performance and motor function, To improve health of tissue, To decrease soft tissue restriction, To increase flexibility/ROM TENS: Yes IF ES: Yes Cryotherapy (ice pack, ice massage): Yes Thermo therapy (hot pack): Yes Ultrasound (thermal/non thermal): Yes For the Purpose of:: To decrease pain, To increase ROM, To improve nutrient delivery to tissue, To increase oxygenation perfusion, To improve health of tissue, To decrease soft tissue restriction Please do not hesitate to contact me at [phone] by phone or if you have questions or concerns regarding this new plan of care! Sincerely, Kalpesh Rogers, PT, Cert MDT, OCS
--- NOTE | 2022-02-20 09:38 | HP.PTRE(2)_ITS ---
Michaela Palmer, SILK WINDING MACHINE OPERATOR-C, It has been my pleasure to treat TRISTEN GOMEZ over the last 10 visits for INTERVERTEBRAL DISC DEGENERATION L-S, RADICULOPATHY LUMBAR. Please see the progress note below for an update on the physical therapy plan of care! Subjective: Plan to see back surgeon next week. Cont to have groin pain and thigh symptoms Objective/Function/Assessment: POSTURE: mild forward posture hips/knees flexed. GAIT: ambulates with fww rollator slow stefano. LUMBAR ROM: flexion mod loss .extension mod/severe. MMT: quads/hams 4-/5 ,hip flexion 3+/5 ,ankle 4/5. FLEXABILIY: hamstrings mod loss Plan Plan: PT INTERVENTIONS AQUATIC THERAPY WITH POSTURAL EX'S,DLS ,LE STRENGTHENING AND FLEXABLITY , Goals Goal 1:: I with Aquatic therapy for lumbar spine Goal Time Frame: 4-6 Weeks Goal Progress: Progressing Goal 2:: Patient to demonstrate 50 % improvement with increase function and less pain Goal Time Frame: 4-6 Weeks Goal Progress: Progressing Goal 3:: Patient to improve strength peak force of legs by 5-10 to improve gait Goal Progress: Progressing Goal 4:: Patient to improve back oswestry by 5 points or > to improve QOL. Goal Time Frame: 4-6 Weeks Goal Progress: Progressing Goal 5:: Patient to improve lumbar ROM for function of recovery to put on shoes Goal Time Frame: 4-6 Weeks Goal Progress: Progressing Anticipated Interventions Patient/Client Instruction: Educate patient on: Condition, Plan of Care For the Purpose of:: To decrease pain, To increase ROM, To improve muscle performance and motor function, To improve ability to perform ADL's, To increase tolerance to activity/condition/position, To improve ability of physical actions for home/community/work/leisure, To improve health of tissue, To decrease soft tissue restriction, To increase flexibility/ROM, To improve balance, To reduce risk of recurrence Therapeutic Exercise to Include: Strength training, Endurance training, Balance training, Body mechanics, Postural training, Flexibilty training, Dynamic Lumbar Stabilization For the Purpose of:: To decrease pain, To increase ROM, To improve muscle performance and motor function, To improve ability to perform ADL's, To increase tolerance to activity/condition/position, To improve ability of physical actions for home/community/work/leisure, To improve health of tissue, To decrease soft tissue restriction, To increase flexibility/ROM Please do not hesitate to contact me at [phone] by phone or if you have questions or concerns regarding this new plan of care! Sincerely, Kalpesh Rogers, PT, Cert MDT, OCS
--- NOTE | 2022-03-23 09:18 | HP.PTDCSUM ---
It has been my pleasure to treat TRISTEN GOMEZ referred by SUNNY Mathew, with the diagnosis of RADICULOATHY ,CERVICAL REGION, SPINAL STENOSIS REGION for a total of 29 visit(s). Discharge Date: 03/23/22 Please see the following information for a summary of their discharge status. Subjective: Conts to have some arm symptoms ,but pain to have surgery Bilateral Neck Pain Intensity (Out of 10): 3 Left Shoulder Pain Intensity (Out of 10): 3 LB Pain Intensity (Out of 10): 3 % Improvement: 50 Objective/Function: POSTURE: mild forward posture, head forward. GAIT: ROLLATOR MILD FORWARD POSTURE. BUE: WFL GROSSY. MMT: grossly 4/5 shoulder 4-/5. LUMBAR ROM: flexion min loss, extension min/mod loss ,rotation/lateral mod min/mod loss Goal 1:: Patient to improve HEP for cervical spine AND AQUATIC THERAPY( NEW GOALS) Goal Progress: Goal Met Goal 2:: Patient to demonstrate 50% improvement with increase function and decrease pain. Goal Progress: Goal Met Goal 3:: Patient to improve cervical ROM for function of recovery to ADLS's Goal Progress: Progressing Goal 4:: Patient to improve neck oswstrey by 5 points to improve function. Goal Progress: Goal Met Goal 5:: Patient to improve ADLS' and light housework tasks with min limitations. Goal Progress: Progressing Plan: D/C plan to back surgery If there are questions or concerns regarding this patient's physical therapy, please feel free to call me at [phone]. Thank you for the referral of this patient. Sincerely, Kalpesh Rogers, PT, Cert MDT, OCS Balance/Gait/Functional tests - Balance/Special Test Scores Oswestry Low Back Score: 33 Oswestry Neck Score: 12
--- NOTE | 2022-03-23 09:26 | HP.PTDCS(2) ---
It has been my pleasure to treat TRISTEN GOMEZ referred by Michaela Palmer NP-C, with the diagnosis of INTERVERTEBRAL DISC DEGENERATION L-S, RADICULOPATHY LUMBAR for a total of 19 visit(s). Discharge Date: 03/23/22 Please see the following information for a summary of their discharge status. Subjective: Plan for back surgery,,Dr Jose % Improvement: 30 Objective/Function/Assessment: POSTURE: forward posture ,trunk flexed hip/knees. GAIT: rollator with forward posture antalgic git. MMT: quads/hams 4-5/ ,hip 3+/5 hip RIGHT ,LEFT 3+/5 quads/hams ,hip flexion 3-/5. LUMBAR ROM: mod /sever loss ,extension severe Patient Goals: Improve Mobility, Improve Function, Decrease Pain, Alleviate Pain, Walk Normal, Maneuver Steps, Improve ROM, Sleep Normal Goal 1:: I with Aquatic therapy for lumbar spine Goal Progress: Progressing Goal 2:: Patient to demonstrate 50 % improvement with increase function and less pain Goal Progress: Progressing Goal 3:: Patient to improve strength peak force of legs by 5-10 to improve gait Goal Progress: Progressing Goal 4:: Patient to improve back oswestry by 5 points or > to improve QOL. Goal Progress: Progressing Goal 5:: Patient to improve lumbar ROM for function of recovery to put on shoes Goal Progress: Progressing Plan: D/C FOR LUMBAR DECOMPREESSION MARCH 27 DR JOSE Discharge Comments: lumbar surgery march 27 If there are questions or concerns regarding this patient's physical therapy, please feel free to call me at [phone]. Thank you for the referral of this patient. Sincerely, Kalpesh Rogers, PT, Cert MDT, OCS
== END 2022-03-23 12:32 | disposition home or self-care (01) ==
LOC: PT 09:00
PROVIDERS: PCP Internal Medicine; Referring Provider Nurse Practitioner Family; Visit Provider Nurse Practitioner Family
DX: M54.12 Radiculopathy, cervical region (principal); M48.02 Spinal stenosis, cervical region; M51.37 Other intervertebral disc degeneration, lumbosacral region; M54.17 Radiculopathy, lumbosacral region
CPT/HCPCS: 97035; 97110; 97113; 97162; 97164; 97530

== ENCOUNTER 2022-04-10 07:02 | Observation (INO) | payer MEDICARE, OTHER, SELFPAY ==
[2022-04-10] VITALS (11 sets, daily range): BP systolic 123–166; BP diastolic 68–83; PULSE 80–108; RESP 17–20; TEMP 36.3–36.7; O2SAT 93–100; BMI 40.3; BMI 40.0
[2022-04-10] MEDS: fentaNYL 100 MCG/2 ML Ampul 50 MCG IV (07:46)
[2022-04-10] MEDS: Ondansetron 4 MG/2 ML Vial IV (07:48)
[2022-04-10 07:49] LABS: Absolute Lymphocyte Count 1.84 X10^3/uL (0.83-4.51); Absolute Neutrophil Count 4.2 X10^3/uL (2.0-7.7); Basophil# 0.03 X10^3/uL; Basophil% 0.4 % (0-1); Eosinophil# 0.14 X10^3/uL; Hematocrit 42.9 % (37-47); Hemoglobin 13.8 g/dL (12.0-15.0); Lymphocyte # 1.84 X10^3/ul (0.83-4.51); Lymphocyte % 26.9 % (19-41); Mean Corp Hgb Conc 32.2 g/dL (32-36); Mean Corpuscular Hgb 31.2 pg (27.0-32.0); Mean Corpuscular Volume 97.1 fL (81-99); Mean Platelet Vol. 8.9 fl (6.2-12.0); Monocyte# 0.57 X10^3/uL; Monocyte% 8.3 % (0-10); NRBC Flagged by Analyzer 0 % (0-5); Neutrophil # 4.23 X10^3/uL (2.7-7.7); Neutrophil % 62.1 % (47-70); Platelet Count 337 K/mm3 (150-450); RBC Distribution Width CV 12.8 % (11.6-14.6); RBC Distribution Width SD 46.3 fl (35.1-43.9); Red Blood Count 4.42 M/mm3 (4.2-5.4); White Blood Count 6.8 K/mm3 (4.4-11.0)
[2022-04-10] MEDS: Ketorolac 15 MG/ML Vial IV (07:49)
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
--- NOTE | 2022-04-10 07:59 | EKG12_ITS ---
Test Reason : Back pain Blood Pressure : / mmHG Vent. Rate : 086 BPM Atrial Rate : 086 BPM P-R Int : 136 ms QRS Dur : 084 ms QT Int : 386 ms P-R-T Axes : 037 -28 020 degrees QTc Int : 461 ms Normal sinus rhythm poor R wave progression Confirmed by AL DYE, ELIZABETH ([id number]), movie editor KATHY PROCTOR ([id number]) on 04/13/2022 7:54:24 AM Referred By: Jose Roberto Confirmed By:ELIZABETH MELENDEZ MD
[2022-04-10 08:05] LABS: Anion Gap 4 (5-15); BUN 13 mg/dL (7-18); BUN/Creat Ratio 14.3 RATIO (10-20); Calcium,Total 9.3 mg/dL (8.5-10.1); Chloride 109 mmol/L (98-107); Creatinine, Serum 0.91 mg/dL (0.55-1.02); EST Glomerular Filtration Rate 65 mL/min (>60); Est Glom Filt Rate - Afr Amer 78 mL/min (>60); Estimated Creatinine Clearance 53.08 ml/min; Glucose 157 mg/dL (74-106); Potassium 4.8 mmol/L (3.5-5.1); Sodium Level 141 mmol/L (136-145)
[2022-04-10 08:21] LABS: Troponin-I HS 12 pg/mL (3.0-54.0)
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
--- NOTE | 2022-04-10 10:18 | NURSING ---
DR ZAIRA LARA
--- NOTE | 2022-04-10 10:29 | NURSING ---
PCU OBS KORAM CHEST PAIN, BACK PAIN
[2022-04-10 12:06] LABS: Troponin-I HS 12 pg/mL (3.0-54.0)
[2022-04-10 13:15] LABS: Bedside Glucose 122 mg/dL (74-106)
[2022-04-10] MEDS: oxyCODONE 5 MG Tablet 10 MG PO ×2 (13:45→18:08)
[2022-04-10] MEDS: Acetaminophen 500 MG Tablet 1000 MG PO (13:46)
[2022-04-10 14:24] LABS: Troponin-I HS 11 pg/mL (3.0-54.0)
[2022-04-10] MEDS: Insulin Lispro 100 UNIT/ML INSULN.PEN 10 UNIT SC (17:42)
[2022-04-10] MEDS: 0.9% Saline Lock 10 ML Syringe IV ×2 (17:42→20:22)
[2022-04-10 18:21] LABS: Bedside Glucose 133 mg/dL (74-106)
[2022-04-11] MEDS: oxyCODONE 5 MG Tablet 10 MG PO ×2 (03:20→10:48)
[2022-04-11] MEDS: Acetaminophen 500 MG Tablet 1000 MG PO (03:20)
[2022-04-11 05:04] LABS: Bedside Glucose 106 mg/dL (74-106)
[2022-04-11 05:51] LABS: Absolute Lymphocyte Count 2.28 X10^3/uL (0.83-4.51); Absolute Neutrophil Count 4.2 X10^3/uL (2.0-7.7); Basophil# 0.03 X10^3/uL; Basophil% 0.4 % (0-1); Eosinophil# 0.14 X10^3/uL; Eosinophils% 1.9 % (0-5); Hematocrit 36.8 % (37-47); Lymphocyte # 2.28 X10^3/ul (0.83-4.51); Lymphocyte % 31.7 % (19-41); Mean Corp Hgb Conc 32.6 g/dL (32-36); Mean Corpuscular Hgb 31.2 pg (27.0-32.0); Mean Corpuscular Volume 95.6 fL (81-99); Mean Platelet Vol. 8.9 fl (6.2-12.0); Monocyte# 0.49 X10^3/uL; Monocyte% 6.8 % (0-10); NRBC Flagged by Analyzer 0 % (0-5); Neutrophil # 4.22 X10^3/uL (2.7-7.7); Neutrophil % 58.8 % (47-70); Platelet Count 282 K/mm3 (150-450); RBC Distribution Width CV 12.8 % (11.6-14.6); RBC Distribution Width SD 44.7 fl (35.1-43.9); Red Blood Count 3.85 M/mm3 (4.2-5.4); White Blood Count 7.2 K/mm3 (4.4-11.0)
[2022-04-11 06:30] LABS: Anion Gap 6 (5-15); BUN 15 mg/dL (7-18); Calcium,Total 8.9 mg/dL (8.5-10.1); Chloride 104 mmol/L (98-107); Creatinine, Serum 0.79 mg/dL (0.55-1.02); EST Glomerular Filtration Rate 76 mL/min (>60); Est Glom Filt Rate - Afr Amer 92 mL/min (>60); Glucose 170 mg/dL (74-106); Sodium Level 137 mmol/L (136-145)
[2022-04-11 08:00] VITALS: PULSE 82
[2022-04-11 08:35] VITALS: BP 121/68; PULSE 85; RESP 16; TEMP 36.5; O2SAT 94
[2022-04-11] MEDS: Enoxaparin 40 MG/0.4 ML Syringe SC (08:50)
[2022-04-11] MEDS: Pantoprazole Sodium 20 MG Tablet PO (08:51)
[2022-04-11] MEDS: LINAGLIPTIN 5 MG TABLET PO (08:51)
[2022-04-11] MEDS: Cholecalciferol (VIT D3) 25 MCG TABLET (1,000 UNITS) PO (08:51)
[2022-04-11] MEDS: Insulin Lispro 100 UNIT/ML INSULN.PEN 10 UNIT SC (08:51)
[2022-04-11] MEDS: Losartan Potassium 25 MG Tablet PO (08:51)
[2022-04-11] MEDS: Insulin Glargine-YFGN 100 UNIT/ML Pen 35 UNIT SC (08:53)
[2022-04-11] MEDS: Gabapentin 600 MG Tablet PO (08:58)
[2022-04-11 09:15] LABS: Bedside Glucose 137 mg/dL (74-106)
--- NOTE | 2022-04-11 10:54 | STEWCON_ITS ---
Reason For Study: CHEST PAIN Stress Results Protocol: Dobutamine Stress Echo With Definiity Maximum Predicted HR: 149 bpm Target HR: 127 bpm % Maximum Predicted HR: 89 % DurationHeart Rate Stage (mm:ss) (bpm) BP Dose Comment BASELINE 88 156/77 3CC DEFINITY STAGE 1 3:00 100 141/7710.00 STAGE 2 3:18 133 147/5820.00 RECOVERY 100 130/73 Stress Duration: 6:18 mm:ss Maximum Stress HR: 133 bpm Baseline Echocardiogram Findings Stress Echo Wall motion Data Resting WM Intermediate WM Stress WM Resting Wall Motion Wall Motion Int. Wall Motion Stress All segments Normal. All segments Hyperkinetic. All segments Hyperkinetic. Ejection Fraction 55 %. Ejection Fraction 65 %. Ejection Fraction 75 %. Stress Results Heart rate response: Target heart rate achieved Cardiac rhythm: Atrial couplet during recovery. EKG Data Baseline ECG: Normal sinus rhythm; poor R wave progression. Peak pharmacologic ECG: No obvious ECG changes. Symptoms with Stress Pretest: A little discomfort . During infusion and recovery: No chest discomfort reported. ECHO/Stress Test Echo W/Contrast Interpretation Summary Contrast injection performed Negative (adequate) dobutamine stress echocardiogram Ordering Physician: Tahira De Performed By: Octavia Alvarado, HELDER, RVT
[2022-04-11 12:10] VITALS: PULSE 102
--- NOTE | 2022-04-11 12:20 | CASEMGMT ---
RN CM Face to Face with patient for initial transition planning/care coordination assessment. RN CM introduced self and role at [facility]. Patient lying in bed, alert and oriented. Patient willing to participate in assessment and is able to answer all questions appropriately. Care providers, pharmacy, and demographics verified. Patient wishes to discharge home, denies need for home health at this time. Patient states she has no further needs or concerns at this time. CM to follow for discharge planning needs that may arise. PCP: Sergio Specialists: Damon, Spinal; , blade operator; brenda Emanuel; Tonio, pain; Precious, precision machining instructor; Antonio, ENT; Candelario, surgeon; Cliff, urologist Preferred Pharmacy: [facility] [employer] Prescription Benefit: yes Living Will/HPOA: yes, Luis Fernando Ocampo HPOA LNOK: significant other Living Arrangements: Patient lives with significant other in a mobile home with 5 steps and railing to enter the home. Patient states she is independent at home. Transportation: self, significant other DME/HHC: Patient states she has shower chair, raised toilet, grab bars, and rollator at home. Patient states she has had HHC in the past. Disposition Plan: Patient to discharge home with family support and follow-up plans in place. Keeley GRIMM, RN, CM
--- NOTE | 2022-04-11 12:35 | CASEMGMT ---
JAMESON CM in to complete RODRIGUEZ form with patient. RN MARY explained RODRIGUEZ form to patient, patient voiced understanding. Patient signed RODRIGUEZ form and filed in chart. Patient provided with copy of signed RODRIGUEZ form. Patient had no further questions or concerns at this time.
[2022-04-11 13:40] LABS: Bedside Glucose 90 mg/dL (74-106)
[2022-04-11 14:16] VITALS: BP 122/75; PULSE 92; RESP 18; TEMP 36.1; O2SAT 97
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
[2022-04-11 14:46] LABS: Mucous, Urine 0 SEEN /hpf (<or=2+)
[2022-04-11 14:59] LABS: Color, Urine Yellow (Yellow); Glucose, Dipstick Normal (Normal); Ketone-Dipstick Negative (Negative); Leukocyte Esterase-Dipstick 500 /ul (Negative); Nitrite-Dipstick Positive (Negative); Occult Blood-Urine 50 /ul (Negative); Protein-Dipstick 15 mg/dl (Negative); Specific Gravity, Urine 1.015 (1.002-1.030); Urine Bilirubin Dipstick Negative (Negative); Urine Clarity Clear (Clear); Urine Urobilinogen Normal (Normal)
--- NOTE | 2022-04-11 15:04 | PHA.DC.MR ---
Pharmacy Service has performed discharge medication reconciliation for this patient. The patient's discharge medication list was reviewed for discrepancies and discrepancies were resolved. Home Medications llgrgmbu-per-rcyed acid 0.4 mg-lycopene 300 mcg-lutein 250 mcg tablet (Hector Garcia) 1 ea PO DAILY SUPPLEMENT 02/27/19 acetaminophen 500 mg tablet 1,000 mg PO QHS PRN Pain 07/06/21 cholecalciferol (vitamin D3) 10 mcg (400 unit) capsule 25 mcg PO DAILY Check with primary doctor 07/06/21 gabapentin 600 mg tablet 600 mg PO DAILY Check with primary doctor 07/06/21 omeprazole 20 mg capsule,delayed release 20 mg PO DAILY reflux 07/06/21 fluoride (sodium) 0.2 % dental solution (PreviDent) 10 ml dental QWEEK tooth decay prevention 09/18/21 vitamin B complex (B Complex-Vitamin B12 tablet) 1 tab PO DAILY supplement 09/18/21 cranberry extract 250 mg tablet 3,000 mg PO DAILY Check with primary doctor 12/18/21 blood sugar diagnostic (OneTouch Ultra Test strips) #180 ea 12/19/21 lancets #180 ea 01/01/22 pen needle, diabetic 32 gauge x 5/32 (BD Ultra-Fine Nan Pen Needle) #150 ea 01/01/22 insulin glargine 100 unit/mL (3 mL) subcutaneous pen (Lantus Solostar U-100 Insulin) See Rx Instructions subcut .COMPLEX #30 mL 02/23/22 insulin lispro 100 unit/mL subcutaneous cartridge (Humalog U-100 Insulin) 10 unit subcut TID diabetes 03/14/22 losartan 25 mg tablet 25 mg PO DAILY BP 03/14/22 sitagliptin 100 mg tablet (Januvia) 100 mg PO DAILY diabetes 03/14/22
[2022-04-11 15:11] VITALS: BP 111/61; BP 112/71; BP 124/68; PULSE 85; PULSE 91; PULSE 94
[2022-04-11 15:17] LABS: Bacteria 2+ /hpf (None Seen); Red Blood Cells-Urine 0-5 SEEN /hpf (0-5); Squamous Epithelial Cells - UA 0-5 SEEN /hpf (5-10); White Blood Cells 25-50 SEEN /hpf (0-5)
--- NOTE | 2022-04-11 16:37 | CHAPLAIN ---
Type of Pastoral Visit _x__ Initial Visit ___ Follow-up Visit ___ On-call Visit ___ General Patient Visit ___ Spiritual Assessment ___ Family Conference ___ Bereavement ___ Rapid Response ___ Code Blue ___ Other (describe below) Pastoral Care Referral From _x__ Patient ___ Family ___ Nurse ___ Physician ___ Multi Disciplined Language Analyst ___ Bleacher [employer] ___ Other (describe below) Sacrament/Intervention _x__ Active listening ___ Anointing ___ Shinto ___ Bereavement ___ Communion ___ Mickie exploration ___ ___ Life review _x__ Prayer ___ Reconciliation ___ Sacrament of Sick _x__ Supportive presence ___ Wedding ___ Other (describe below) Pastoral Comments on second visit found the patient had returned to room and spouse/SO was in chair; pt was sleeping but awoke easily to her name; pt stated that she can hear but I'm bebe out of it right now; pt states that she has had many problems and that God is not listening to me; open ended questions about her needs, concerns, and God leads patient to tell some of her life story and its many problems and that God doesn't answer my prayers ever; offer of presence and support; pt does welcome a prayer maybe He listens to you; offer of ongoing support and presence as needed
== END 2022-04-11 14:33 | disposition home or self-care (01) ==
LOC: ED 10:23 → PCU 10:44
PROVIDERS: Admitting Provider Student in an Organized Health Care Education/Training Program; Emergency Provider Emergency Medicine; PCP Internal Medicine; Visit Provider Student in an Organized Health Care Education/Training Program
DX: M48.061 Spinal stenosis, lumbar region without neurogenic claudication (principal); M06.9 Rheumatoid arthritis, unspecified; E11.40 Type 2 diabetes mellitus with diabetic neuropathy, unspecified; Z79.4 Long term (current) use of insulin; N39.0 Urinary tract infection, site not specified; G89.29 Other chronic pain; R07.9 Chest pain, unspecified; I10 Essential (primary) hypertension; Z79.899 Other long term (current) drug therapy; M19.90 Unspecified osteoarthritis, unspecified site; Z86.718 Personal history of other venous thrombosis and embolism; K21.9 Gastro-esophageal reflux disease without esophagitis; Z86.711 Personal history of pulmonary embolism
CPT/HCPCS: 36415; 80048; 81001; 82962; 84484; 85025; 87077; 87086; 87088; 87186; 93005; 93017; 93350; 96372; 96374; 96375; 97162; 97165; 99218; 99285; J7040; Q9957; A4216; C8928; G0378; J2405

== ENCOUNTER 2022-08-03 14:30 | Inpatient (IN) | payer MEDICARE, OTHER, SELFPAY ==
[2022-08-03 14:39] VITALS: BP 146/68; PULSE 88; RESP 16; TEMP 36.6; O2SAT 97
[2022-08-03 14:57] VITALS: BMI 41.4
[2022-08-03 15:45] VITALS: BP 146/68; PULSE 88; RESP 16; TEMP 36.6; O2SAT 97
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
[2022-08-03] MEDS: oxyCODONE 5 MG Tablet PO (20:24)
[2022-08-03] MEDS: Acetaminophen 500 MG Tablet 1000 MG PO (20:25)
[2022-08-03] MEDS: Methocarbamol 500 MG Tablet 1000 MG PO (20:26)
[2022-08-03] MEDS: Insulin Lispro 100 UNIT/ML INSULN.PEN SC (20:37)
[2022-08-03] MEDS: Insulin Glargine-YFGN 100 UNIT/ML Pen 35 UNIT SC (20:38)
[2022-08-03 21:05] LABS: Bedside Glucose 222 mg/dL (74-106)
[2022-08-03 22:00] VITALS: BP 136/75; PULSE 78; RESP 16; TEMP 36.9; O2SAT 94
[2022-08-03 22:23] VITALS: BP 136/75; PULSE 78; RESP 16; TEMP 36.9; O2SAT 94
[2022-08-04] MEDS: oxyCODONE 5 MG Tablet PO ×3 (03:23→16:19)
[2022-08-04] MEDS: Methocarbamol 500 MG Tablet 1000 MG PO ×3 (05:04→20:46)
[2022-08-04] MEDS: Acetaminophen 500 MG Tablet 1000 MG PO ×3 (05:05→20:46)
[2022-08-04 07:10] LABS: Bedside Glucose 119 mg/dL (74-106)
[2022-08-04 07:42] LABS: Absolute Lymphocyte Count 2.92 X10^3/uL (0.83-4.51); Absolute Neutrophil Count 4.9 X10^3/uL (2.0-7.7); Basophil# 0.04 X10^3/uL; Basophil% 0.5 % (0-1); Eosinophil# 0.21 X10^3/uL; Eosinophils% 2.4 % (0-5); Hematocrit 39.3 % (37-47); Hemoglobin 12.6 g/dL (12.0-15.0); Lymphocyte # 2.92 X10^3/ul (0.83-4.51); Lymphocyte % 33.1 % (19-41); Mean Corp Hgb Conc 32.1 g/dL (32-36); Mean Corpuscular Hgb 30.6 pg (27.0-32.0); Mean Corpuscular Volume 95.4 fL (81-99); Mean Platelet Vol. 8.7 fl (6.2-12.0); Monocyte# 0.61 X10^3/uL; Monocyte% 6.9 % (0-10); NRBC Flagged by Analyzer 0 % (0-5); Neutrophil # 4.93 X10^3/uL (2.7-7.7); Neutrophil % 55.9 % (47-70); Platelet Count 292 K/mm3 (150-450); RBC Distribution Width SD 45.2 fl (35.1-43.9); Red Blood Count 4.12 M/mm3 (4.2-5.4); White Blood Count 8.8 K/mm3 (4.4-11.0)
[2022-08-04 07:59] LABS: ALB/GLOB Ratio 0.7 RATIO (0.9-2.4); AST(SGOT) 43 U/L (15-37); Alanine Aminotransfer ALT/SGPT 42 U/L (13-56); Albumin, Serum 2.8 g/dL (3.2-5.0); Alkaline Phosphatase 118 U/L (45-117); Anion Gap 5 (5-15); BUN 21 mg/dL (7-18); BUN/Creat Ratio 26.7 RATIO (10-20); Calcium,Total 9.3 mg/dL (8.5-10.1); Chloride 108 mmol/L (98-107); Creatinine, Serum 0.79 mg/dL (0.55-1.02); EST Glomerular Filtration Rate 76 mL/min (>60); Est Glom Filt Rate - Afr Amer 92 mL/min (>60); Globulin 3.8 g/dL (2.2-4.2); Glucose 131 mg/dL (74-106); Magnesium 2.1 mg/dL (1.6-2.6); Phosphorus 3.7 mg/dL (2.5-4.9); Potassium 4.3 mmol/L (3.5-5.1); Protein, Total 6.6 g/dL (6.4-8.2); Sodium Level 139 mmol/L (136-145)
[2022-08-04] MEDS: Multivitamins,Therapeutic Tablet 1 TABLET PO (08:29)
[2022-08-04] MEDS: Cholecalciferol (VIT D3) 25 MCG TABLET (1,000 UNITS) PO (08:30)
[2022-08-04] MEDS: Vitamin B Comp W-C Capsule 1 CAP PO (08:30)
[2022-08-04 09:01] VITALS: BP 145/64; PULSE 83; RESP 16; TEMP 36.2; O2SAT 92
[2022-08-04] MEDS: Docusate Sodium 100 MG Capsule PO (10:39)
[2022-08-04] MEDS: Losartan Potassium 25 MG Tablet PO (10:40)
[2022-08-04] MEDS: Pantoprazole Sodium 20 MG Tablet PO (10:40)
[2022-08-04] MEDS: LINAGLIPTIN 5 MG TABLET PO (10:40)
[2022-08-04] MEDS: Gabapentin 600 MG Tablet PO (10:44)
[2022-08-04] MEDS: Insulin Lispro 100 UNIT/ML INSULN.PEN SC ×3 (10:55→20:47)
[2022-08-04 11:30] LABS: Bedside Glucose 179 mg/dL (74-106)
[2022-08-04 16:55] LABS: Bedside Glucose 194 mg/dL (74-106)
[2022-08-04 19:37] VITALS: BP 136/67; PULSE 90; RESP 18; TEMP 36.7; O2SAT 95
[2022-08-04] MEDS: Insulin Glargine-YFGN 100 UNIT/ML Pen 35 UNIT SC (20:46)
[2022-08-04 21:10] LABS: Bedside Glucose 194 mg/dL (74-106)
[2022-08-05] MEDS: oxyCODONE 5 MG Tablet PO (03:25)
[2022-08-05] MEDS: Methocarbamol 500 MG Tablet 1000 MG PO ×3 (05:29→21:27)
[2022-08-05] MEDS: Acetaminophen 500 MG Tablet 1000 MG PO ×3 (05:30→21:27)
[2022-08-05 07:10] LABS: Bedside Glucose 153 mg/dL (74-106)
[2022-08-05 07:51] VITALS: BP 147/69; PULSE 80; RESP 16; TEMP 36.4; O2SAT 96
[2022-08-05] MEDS: Cholecalciferol (VIT D3) 25 MCG TABLET (1,000 UNITS) PO (08:25)
[2022-08-05] MEDS: Vitamin B Comp W-C Capsule 1 CAP PO (08:25)
[2022-08-05] MEDS: Multivitamins,Therapeutic Tablet 1 TABLET PO (08:25)
[2022-08-05] MEDS: Losartan Potassium 25 MG Tablet PO (08:27)
[2022-08-05] MEDS: Docusate Sodium 100 MG Capsule PO (08:27)
[2022-08-05] MEDS: Pantoprazole Sodium 20 MG Tablet PO (08:27)
[2022-08-05] MEDS: LINAGLIPTIN 5 MG TABLET PO (08:28)
[2022-08-05] MEDS: Gabapentin 600 MG Tablet PO (08:32)
[2022-08-05] MEDS: Insulin Lispro 100 UNIT/ML INSULN.PEN SC ×4 (09:36→21:27)
[2022-08-05 11:30] LABS: Bedside Glucose 160 mg/dL (74-106)
[2022-08-05 16:31] LABS: Bedside Glucose 194 mg/dL (74-106)
[2022-08-05 19:59] VITALS: BP 140/71; PULSE 92; RESP 16; TEMP 37.2; O2SAT 98
[2022-08-05] MEDS: Insulin Glargine-YFGN 100 UNIT/ML Pen 35 UNIT SC (21:27)
[2022-08-05 21:50] LABS: Bedside Glucose 224 mg/dL (74-106)
[2022-08-06] MEDS: Methocarbamol 500 MG Tablet 1000 MG PO ×3 (05:14→20:59)
[2022-08-06] MEDS: Acetaminophen 500 MG Tablet 1000 MG PO ×4 (05:14→23:50)
[2022-08-06 06:41] LABS: Bedside Glucose 142 mg/dL (74-106)
[2022-08-06] MEDS: LINAGLIPTIN 5 MG TABLET PO (08:19)
[2022-08-06] MEDS: Losartan Potassium 25 MG Tablet PO (08:19)
[2022-08-06] MEDS: Vitamin B Comp W-C Capsule 1 CAP PO (08:19)
[2022-08-06] MEDS: Multivitamins,Therapeutic Tablet 1 TABLET PO (08:19)
[2022-08-06] MEDS: Cholecalciferol (VIT D3) 25 MCG TABLET (1,000 UNITS) PO (08:19)
[2022-08-06] MEDS: Pantoprazole Sodium 20 MG Tablet PO (08:20)
[2022-08-06] MEDS: Gabapentin 600 MG Tablet PO (08:27)
[2022-08-06 08:37] VITALS: BP 141/66; PULSE 86; RESP 18; TEMP 36.2; O2SAT 96
[2022-08-06 12:31] LABS: Bedside Glucose 149 mg/dL (74-106)
--- NOTE | 2022-08-06 14:33 | CASEMGMT ---
Patient agreed to have SO provide copies of advanced directives
--- NOTE | 2022-08-06 15:22 | PCM.RU.PYE ---
Admission Information Primary Diagnosis:: Debility due to lumbar laminectomy and fusion. Status Changes from Prescreening?: No changes Identified Actual Problem List:: Skin Intergrity, Pain, ALteration in Cmfrt, Alteration in Sleep, Mobility Impaired, Self Care Deficit, Diabetes, Hyperglycemia and Alteration-Leisure Activ. Potential Problem List:: DVT, Bleeding, Infection, UTI, Aspiration, Falls, Skin Integrity and Depression Plan of Care Patient requires physician specializing in physical medicine and rehab oversight to provide close medical supervision of rehab issues including: Pain Management, Sleep Problems, Bowel and Bladder, Medical and co-morbidity Management, DVT prophylaxis, Rehabilitation Leadership and Coordination of treatment team Patient needs Physical Therapy: For a minimum of 1 hour and At least 5 out of 7 days Patient needs Physical Therapy to improve:: Mobility, Strengthening, Transfers, Stretching, ROM, Endurance, Stairs, Gait and Balance Patient needs Occupational Therapy: For a minimum of 1 hour and At least 5 out of 7 days Patient needs Occupational Therapy to improve ADL's incl.: Eating, Grooming, Bathing, Dressing, Toileting, Toilet transfers, Community Reintegration, Higher functioning activities, Household tasks, Adaptive Equipment, Splinting and Other activities as determined Patient requires 24/7 Rehabilitation Nursing for: Pain Issues, Identifying and preventing risk factors, Monitoring and reporting current medical conditions, Assisting with ambulation, transfer, and all ADL's, Teaching patients about disease process and medications, Family teaching, Providing safe environment, Bowel and Bladder Issues, Skin integrity and Medication Management Patient needs Needle Punch Machine Operator/ Case Management for: Discharge Planning, Arranging Home Equipment or Services and Family Interventions Patient needs Dietary and Nutrition Services for: Adequate Nutrition, Nutritional Supplements and Nutritional Education Goals Patient will remain: free from falls and or injury at time of discharge. Patient will perform bed mobility at: MOD I level of assist. Patient will complete transfers from bed to chair at: MOD I level of assist. Patient will ambulate: - (200 feet with Rollator walker at supervision.) Patient will complete upper body dressing at: - (CGA) Patient will complete lower body dressing at: - (set up assist) Patient will complete toileting at: MOD I level of assist. (CGA) Patient will perform bathing at: - (set up assist) Patient will complete grooming at: MOD I level of assist. Patient will complete home management skills at: - (spupervision/set up) Patient will achieve: - (1 curb step and she will ascend/descend 5 steps with bilateral handrails at SBA to gain entry into her mobile home.) Patient will have pain level of: of 3 or less Patient's skin will: remain intact Patient will receive: adequate nutrition. Discharge Planning Pt Prognosis for Sig. Practical Improv. w/in Reasonable Time: Good Estimated Length of stay (days): 14 Anticipated D/C Destination: Home with Home Health Was Preadmission Assessment Accurate?: Yes
--- NOTE | 2022-08-06 15:23 | CHAPLAIN ---
Type of Pastoral Visit _x__ Initial Visit ___ Follow-up Visit ___ On-call Visit ___ General Patient Visit ___ Spiritual Assessment ___ Family Conference ___ Bereavement ___ Rapid Response ___ Code Blue ___ Other (describe below) Pastoral Care Referral From _x__ Patient ___ Family ___ Nurse ___ Physician ___ Machine Deburrer ___ Analytical Scientist ___ Other (describe below) Sacrament/Intervention ___ Active listening ___ Anointing ___ Buddhist ___ Bereavement ___ Communion ___ Mickie exploration ___ ___ Life review ___ Prayer ___ Reconciliation ___ Sacrament of Sick _x__ Supportive presence ___ Wedding ___ Other (describe below) Pastoral Comments patient was sitting in chair; family members are in room; offer of support given; pt declined any needs at this time and stated I am kept busy and don't need any more company
--- NOTE | 2022-08-06 15:31 | PN_ITS ---
Subjective Subjective Afebrile VSS-blood pressure is consistently above 130 systolic. The diastolics are within goal. Heart rate is within normal limits. Maintaining appropriate oxygen saturation on RA Oral intake is adequate The blood sugar record was reviewed. Fasting blood sugar this morning was 142 and the blood sugar prior to lunch was 149. She has outside food in her room and she keeps food from her trays to snack on during the day because she only likes to eat a small amount at a time. She is currently on glargine 35 units at at bedtime, sliding scale insulin coverage and Tradjenta 5 mg daily. She received 6 units total in coverage yesterday and has not had any sliding scale coverage today. At her last appt with Dr. Caraballo she was on Lantus 35 units BID and Humalog 10 units TID with meals. Her HGBA1C s good at 6.6. Currently she is on a 2000 calorie carb controlled diet. I reviewed the dietitian's recommendations and she recommended 1600 to 1800 devyn a day. Discussed with nursing - Darrin has many complaints about her care and has been rude to many of the staff. She continues to talk over not only myself but, the therapists, metal bench patternmaker and nurses. Reviewed the PT/OT notes Medication list reviewed. She has not taken any Oxycodone since 08/05/22 because she says it does not work so why take it. She tells me that she slept well last night. She denies chest pain, shortness of breath, hemoptysis, calf pain, nausea, vomiting and lightheadedness. She is complaining of frequent stools. She feels that no one knows what is going on and no one can tell her why she still has back pain. Objective Data Objective Data Vital Signs: Vital Signs Temp Pulse Resp BP Pulse Ox O2 Del Method 97.1 F L 86 18 141/66 H 96 Room Air 08/06/22 08:37 08/06/22 08:37 08/06/22 08:37 08/06/22 08:37 08/06/22 08:37 08/06/22 08:37 Oxygen Delivery Method Room Air Weight: 256 lb 9.607 oz Body Mass Index (BMI) 41.4 Intake & Output: Intake and Output for Last 24 Hours 08/04/22 08/05/22 08/06/22 23:59 23:59 23:59 Intake Total 480 / 480 450 / 450 960 / 960 Output Total 200 / 200 200 / 200 Balance 280 / 280 250 / 250 960 / 960 Lab / Micro Data Result Diagrams: 08/04/22 07:25 08/04/22 07:25 Labs: Laboratory Results - last 24 hr 08/05/22 16:09: POC Glucose 194 H 08/05/22 21:26: POC Glucose 224 H 08/06/22 06:08: POC Glucose 142 H 08/06/22 12:09: POC Glucose 149 H Physical Exam Const alert Constitutional Narrative: Sitting in the recliner when I entered the room and does not appear to be in any distress. Resp normal respiratory effort and clear to auscultation bilaterally Resp Narrative: No conversational dyspnea. Does not appear to be in any resp distress. Effort and Inspection: Negative for tachypneic Cardio regular rate and regular rhythm Cardio Narrative: Distant heart sounds, more likely than not related to body habitus. I do not appreciate any gallops. GI GI Narrative: obese, soft, no guarding with palpation. BS's are not hyperactive. Extremity normal capillary refill Extremity Narrative: She has edema of the Left ankle.....has told me this is chronic since she broke her ankle and had surgery to stabilize........She told me her doctorskipped town and she was unable to follow up. General Extremity: Negative for clubbing or cyanosis Skin General Skin Exam: no breakdown Rashes: no rashes Neuro CN's II-XII intact bilaterally and no focal motor deficits Psych Psych Narrative: She is antagonistic and complains about everything. She complains that her linens have not been changed and I spoke with the OT who changed her linens today. Attitude: agitated Assessment & Plan Assessment/Plan (1) Low back pain: (2) Status post laminectomy with spinal fusion: (3) Morbid obesity with BMI of 40.0-44.9, adult: (4) Diabetes mellitus type 1.5: (5) Personality disorder in adult: PLAN: Plan 1. Decrease the calories to 1800 calories daily. Discouraged the patient from eating outside food. It is difficult to educate her because she is continually talking over me. She weighed 249 pounds and 6 ounces on 11/06/2021 and today weighs 256 pounds and 9.6 ounces. She tells me that she eats very little and tries to stick to liquids because she regurgitates solid foods. She eats ice cream with every meal. She snacks throughout the day. She is gaining weight due to poor dietary choices. She wants to know why she is not on the insulin Regimen that Dr. Caraballo has her on. I explained because she is on calorie control in the hospital and if I gave her as much insulin as she was taking at home she would surely get hypoglycemic. She is complaining that the nurse did an accuchek from the pad of her finger and that the blood is to be taken from the side of the finger because taking blood from the fingerpad kills the nerve. She knows this from experience. She fortunately was able to reverse the nerve damage by taking blood from the side of her finger when she is not in the hospital. She also tells me that when she had a 6 hours GTT in the distant past it caused all her veins to collapse and now she only has 1 good vein and that is in the R antecubital fossa. 2. Increase the Tylenol to 1 GM Q6H to better control pain, at her request. 3. Give 2 units of insulin with each meal. Decrease glargine to 30 units nightly. 4. Continue therapy Charges/Coding Visit Charges Inpatient E&M: 66771 Subs Hosp L2
[2022-08-06] MEDS: Insulin Lispro 100 UNIT/ML INSULN.PEN SC ×3 (17:32→22:14)
[2022-08-06 18:00] LABS: Bedside Glucose 206 mg/dL (74-106)
[2022-08-06 20:16] VITALS: BP 133/58; PULSE 85; RESP 16; TEMP 36.8; O2SAT 97
[2022-08-06 21:00] VITALS: O2SAT 97
[2022-08-06] MEDS: Insulin Glargine-YFGN 100 UNIT/ML Pen 30 UNIT SC (22:15)
[2022-08-06 23:05] LABS: Bedside Glucose 195 mg/dL (74-106)
[2022-08-07] MEDS: Methocarbamol 500 MG Tablet 1000 MG PO ×3 (05:08→22:06)
[2022-08-07] MEDS: Acetaminophen 500 MG Tablet 1000 MG PO ×2 (05:09→16:51)
[2022-08-07 07:25] LABS: Bedside Glucose 166 mg/dL (74-106)
[2022-08-07] MEDS: Insulin Lispro 100 UNIT/ML INSULN.PEN SC ×5 (07:47→22:09)
[2022-08-07] MEDS: Vitamin B Comp W-C Capsule 1 CAP PO (07:48)
[2022-08-07] MEDS: Cholecalciferol (VIT D3) 25 MCG TABLET (1,000 UNITS) PO (07:48)
[2022-08-07] MEDS: Multivitamins,Therapeutic Tablet 1 TABLET PO (07:48)
[2022-08-07] MEDS: Pantoprazole Sodium 20 MG Tablet PO (07:49)
[2022-08-07] MEDS: Losartan Potassium 25 MG Tablet PO (07:49)
[2022-08-07] MEDS: LINAGLIPTIN 5 MG TABLET PO (07:56)
[2022-08-07] MEDS: Gabapentin 600 MG Tablet PO (07:56)
[2022-08-07 08:03] VITALS: BP 131/72; PULSE 88; RESP 16; TEMP 36.1; O2SAT 97
[2022-08-07 12:11] LABS: Bedside Glucose 147 mg/dL (74-106)
--- NOTE | 2022-08-07 14:44 | PN_ITS ---
Subjective Subjective Afebrile VSS Maintaining appropriate oxygen saturation on RA Oral intake is very good - ordering more carbs than she is allowed for meals. Complaining about the incompetence of the kitchen staff. Discussed with nursing - no problems that need addressed. Reviewed the PT/OT notes Medication list reviewed. Blood sugar record was reviewed. The 5 PM sugar yesterday was 206 and the at bedtime blood sugar was 195. Fasting today was 166. Calories were decreased to 1800 yesterday which is what the dietitian recommended. She is irate that the calories were decreased and I explained to her that she has now had 2 lumbar surgeries and she is morbidly obese and I suspect mostly sedentary at home. I explained that with weight loss the risk that she will need more surgery in the future will come down. It will also help with diabetes control and she will require less insulin. She told the PT that she should be getting 2000 calories with every meal. She continues to have many complaints One of her complaints today s burning with urination. Nursing tells me the urine is pale yellow and clear. I suspect she has a vaginal yeast infection due to the uncontrolled BS's while she was at [facility]. No CP, SOB, palpitations, abd pain, N/V. She tells me that she is having 5-6 BM's a day but, she has to call a nurse to help her to the BR and per their report she is not having diarrhea. Objective Data Objective Data Vital Signs: Vital Signs Temp Pulse Resp BP Pulse Ox O2 Del Method 97.0 F L 88 16 131/72 H 97 Room Air 08/07/22 08:03 08/07/22 08:03 08/07/22 08:03 08/07/22 08:03 08/07/22 08:03 08/07/22 08:03 Oxygen Delivery Method Room Air Weight: 256 lb 9.607 oz Body Mass Index (BMI) 41.4 Intake & Output: Intake and Output for Last 24 Hours 08/05/22 08/06/22 08/07/22 23:59 23:59 23:59 Intake Total 450 / 450 960 / 960 Output Total 200 / 200 Balance 250 / 250 960 / 960 Lab / Micro Data Result Diagrams: 08/04/22 07:25 08/04/22 07:25 Labs: Laboratory Results - last 24 hr 08/06/22 17:17: POC Glucose 206 H 08/06/22 22:12: POC Glucose 195 H 08/07/22 06:52: POC Glucose 166 H 08/07/22 11:48: POC Glucose 147 H Physical Exam Const alert Constitutional Narrative: She yelled at me today for cutting the calories down from 1999 daily to 1800. I apologized for not talking directly with her yesterday. She has been cooperating with therapy but, when they try to give her instruction she talks over them and is dismissive. Resp clear to auscultation bilaterally Cardio regular rate and regular rhythm GI normal to inspection, nondistended, normoactive bowel sounds, soft to palpation and non-tender Extremity Extremity Narrative: Trace left ankle edema - chronic and unchanged. Skin General Skin Exam: no breakdown Rashes: no rashes Assessment & Plan Assessment/Plan (1) Debility: (2) Status post laminectomy with spinal fusion: (3) Diabetes mellitus type 1.5: (4) Morbid obesity with BMI of 40.0-44.9, adult: (5) Low back pain: (6) Dysuria: PLAN: Plan 1. Continue therapy 2. Increase Lispro at supper. 3. The merchandise processor will speak to her about her meal choices and explain why she does not get everything she ordered on her tray.......she is ordering to many carbs. 4. Straight cath for today. Charges/Coding Visit Charges Inpatient E&M: 79319 Subs Hosp L2
[2022-08-07 17:25] LABS: Bedside Glucose 154 mg/dL (74-106)
[2022-08-07 22:00] VITALS: BP 144/66; PULSE 84; RESP 18; TEMP 36.2; O2SAT 99
[2022-08-07] MEDS: Insulin Glargine-YFGN 100 UNIT/ML Pen 30 UNIT SC (22:08)
[2022-08-07 22:40] LABS: Bedside Glucose 228 mg/dL (74-106)
[2022-08-08] MEDS: Acetaminophen 500 MG Tablet 1000 MG PO ×5 (00:12→23:46)
--- NOTE | 2022-08-08 00:50 | NURSING ---
Pt c/o burning with urination tonight, states it is getting worse, states she is prone to UTIs and takes cranberry capsules at home but had to stop them for surgery. Note left for Maurisio to address in am.
[2022-08-08] MEDS: Methocarbamol 500 MG Tablet 1000 MG PO ×3 (06:11→21:33)
[2022-08-08 06:55] LABS: Bedside Glucose 141 mg/dL (74-106)
[2022-08-08] MEDS: LINAGLIPTIN 5 MG TABLET PO (07:52)
[2022-08-08] MEDS: Docusate Sodium 100 MG Capsule PO (07:52)
[2022-08-08] MEDS: Cholecalciferol (VIT D3) 25 MCG TABLET (1,000 UNITS) PO (07:52)
[2022-08-08] MEDS: Gabapentin 600 MG Tablet PO (07:52)
[2022-08-08] MEDS: Pantoprazole Sodium 20 MG Tablet PO (07:52)
[2022-08-08] MEDS: Insulin Lispro 100 UNIT/ML INSULN.PEN SC ×5 (07:53→21:36)
[2022-08-08] MEDS: Vitamin B Comp W-C Capsule 1 CAP PO (07:53)
[2022-08-08] MEDS: Losartan Potassium 25 MG Tablet PO (07:53)
[2022-08-08] MEDS: Multivitamins,Therapeutic Tablet 1 TABLET PO (07:53)
[2022-08-08] MEDS: Polyethylene Glycol 3350 17 GM PACKET PO (07:53)
[2022-08-08 08:00] VITALS: BP 131/68; PULSE 81; RESP 17; TEMP 36.3; O2SAT 98
[2022-08-08 11:55] LABS: Bedside Glucose 162 mg/dL (74-106)
[2022-08-08 14:31] LABS: Bacteria 0 SEEN /hpf (None Seen); Mucous, Urine 0 SEEN /hpf (<or=2+); Red Blood Cells-Urine 0 SEEN /hpf (0-5); White Blood Cells 0 SEEN /hpf (0-5)
[2022-08-08 14:45] LABS: Color, Urine Yellow (Yellow); Glucose, Dipstick Normal (Normal); Ketone-Dipstick Negative (Negative); Leukocyte Esterase-Dipstick Negative /ul (Negative); Nitrite-Dipstick Negative (Negative); Occult Blood-Urine Negative /ul (Negative); Protein-Dipstick Negative (Negative); Specific Gravity, Urine 1.015 (1.002-1.030); Urine Bilirubin Dipstick Negative (Negative); Urine Clarity Sl. Cloudy (Clear); Urine Urobilinogen Normal (Normal)
[2022-08-08 14:51] LABS: Squamous Epithelial Cells - UA 0-5 SEEN /hpf (5-10)
[2022-08-08 16:26] LABS: Bedside Glucose 155 mg/dL (74-106)
[2022-08-08] MEDS: Insulin Lispro 100 UNIT/ML INSULN.PEN 6 UNIT SC (17:36)
[2022-08-08 19:29] VITALS: BP 151/75; PULSE 110; RESP 16; TEMP 36.8; O2SAT 98
[2022-08-08] MEDS: Insulin Glargine-YFGN 100 UNIT/ML Pen 30 UNIT SC (21:35)
[2022-08-08 21:46] LABS: Bedside Glucose 225 mg/dL (74-106)
--- NOTE | 2022-08-09 03:25 | NURSING ---
REVIEWED AND AGREE WITH SOLE RUFFER'S FUNCTIONAL ASSESSMENT AND HANDOFF CHARTING.
[2022-08-09] MEDS: Acetaminophen 500 MG Tablet 1000 MG PO ×4 (05:40→23:51)
[2022-08-09] MEDS: Methocarbamol 500 MG Tablet 1000 MG PO ×3 (05:40→21:23)
[2022-08-09 06:50] LABS: Bedside Glucose 135 mg/dL (74-106)
[2022-08-09 07:31] VITALS: BP 131/64; PULSE 81; RESP 16; TEMP 36.7; O2SAT 98
[2022-08-09] MEDS: Insulin Lispro 100 UNIT/ML INSULN.PEN SC ×3 (07:48→21:28)
[2022-08-09] MEDS: LINAGLIPTIN 5 MG TABLET PO (07:50)
[2022-08-09] MEDS: Vitamin B Comp W-C Capsule 1 CAP PO (07:50)
[2022-08-09] MEDS: Pantoprazole Sodium 20 MG Tablet PO (07:50)
[2022-08-09] MEDS: Cholecalciferol (VIT D3) 25 MCG TABLET (1,000 UNITS) PO (07:50)
[2022-08-09] MEDS: Multivitamins,Therapeutic Tablet 1 TABLET PO (07:50)
[2022-08-09] MEDS: Losartan Potassium 25 MG Tablet PO (07:51)
[2022-08-09] MEDS: Gabapentin 600 MG Tablet PO (07:56)
[2022-08-09 11:40] LABS: Bedside Glucose 145 mg/dL (74-106)
--- NOTE | 2022-08-09 12:19 | NURSING ---
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 Waiting for return call.
--- NOTE | 2022-08-09 12:26 | MDS.RN ---
Received return call from Dr. Pablo's office, per doctor pt can start DVT prophylaxes. Received order from Dr. Medrano to order 40mg lovenox q12hrs. Order repeated back will add orders.
--- NOTE | 2022-08-09 13:33 | CASEMGMT ---
Social Work IDT met with patient for Team meeting. Discussed patient's progress in PT/OT/SN. Educated to Medicare approved 11 days with EDC 08/14. SW offered to set DC sooner and coordinate care at home. Pt agreeable to remain to DC on 08/14 with [facility] PT. No DME needs. SO to transport. SW faxed order to [facility]. Plan: DC home with SO 08/14, [facility] PT Leyla Ang, [employer]
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
--- NOTE | 2022-08-09 16:31 | VDLE_ITS ---
Reason For Study: LEG PAIN RIGHT LEFT GSV is normal. GSV is normal. CFV is compressible, spontaneous, phasic, CFV is compressible, spontaneous, phasic, competent and demonstrates normal competent, and demonstrates normal augmentation. augmentation. FV is compressible, spontaneous, phasic, FV is compressible, spontaneous, phasic, competent and demonstrates normal competent and demonstrates normal augmentation. augmentation. POP V is compressible, spontaneous, phasic, POP V is compressible, spontaneous, phasic, competent and demonstrates normal competent and demonstrates normal augmentation. augmentation. T/P Trunk is compressible. T/P Trunk is compressible. PTV is compressible. PTV is compressible. RT PerV is compressible. LT PerV is compressible. Procedure This is a venous duplex using B-mode, color flow and spectral Doppler. Exam performed portable in patient room. The exam was diagnostic. A preliminary report was called and/or faxed to [facility] 4. VL/Venous Duplex US - [place] Extrem Interpretation Summary Deep veins of the bilateral lower extremity are patent and compressible segment ally. There is no evidence of bilateral lower extremity deep vein thrombosis. The bilateral great saphenous veins appear patent and compressible segmentally. Ordering Physician: Catalina Medrano Referring Physician: Aquiles Hill Performed By: Christoph Nichols RVT
[2022-08-09 16:56] LABS: Bedside Glucose 146 mg/dL (74-106)
[2022-08-09] MEDS: Insulin Lispro 100 UNIT/ML INSULN.PEN 8 UNIT SC (17:28)
[2022-08-09] MEDS: Enoxaparin 40 MG/0.4 ML Syringe SC (21:23)
[2022-08-09] MEDS: Insulin Glargine-YFGN 100 UNIT/ML Pen 30 UNIT SC (21:29)
[2022-08-09 21:34] VITALS: BP 132/65; PULSE 87; RESP 15; TEMP 36.9; O2SAT 95
[2022-08-09 22:05] LABS: Bedside Glucose 177 mg/dL (74-106)
[2022-08-10] MEDS: Methocarbamol 500 MG Tablet 1000 MG PO ×3 (05:39→21:25)
[2022-08-10] MEDS: Acetaminophen 500 MG Tablet 1000 MG PO ×3 (05:40→17:23)
[2022-08-10 07:06] LABS: Bedside Glucose 160 mg/dL (74-106)
[2022-08-10 07:31] VITALS: BP 136/65; PULSE 88; RESP 16; TEMP 36.6; O2SAT 97
[2022-08-10] MEDS: Pantoprazole Sodium 20 MG Tablet PO (08:45)
[2022-08-10] MEDS: LINAGLIPTIN 5 MG TABLET PO (08:45)
[2022-08-10] MEDS: Multivitamins,Therapeutic Tablet 1 TABLET PO (08:45)
[2022-08-10] MEDS: Gabapentin 600 MG Tablet PO (08:45)
[2022-08-10] MEDS: Enoxaparin 40 MG/0.4 ML Syringe SC ×2 (08:45→21:25)
[2022-08-10] MEDS: Cholecalciferol (VIT D3) 25 MCG TABLET (1,000 UNITS) PO (08:46)
[2022-08-10] MEDS: Vitamin B Comp W-C Capsule 1 CAP PO (08:46)
[2022-08-10] MEDS: Insulin Lispro 100 UNIT/ML INSULN.PEN SC ×5 (08:46→21:27)
[2022-08-10] MEDS: Losartan Potassium 25 MG Tablet PO (08:46)
[2022-08-10 12:35] LABS: Bedside Glucose 130 mg/dL (74-106)
[2022-08-10 15:54] VITALS: O2SAT 95
[2022-08-10] MEDS: Insulin Lispro 100 UNIT/ML INSULN.PEN 8 UNIT SC (17:23)
[2022-08-10 17:27] VITALS: BP 136/69; PULSE 97; RESP 18; TEMP 36.4; O2SAT 97
[2022-08-10 17:56] LABS: Bedside Glucose 171 mg/dL (74-106)
[2022-08-10 21:00] VITALS: RESP 18
[2022-08-10] MEDS: Insulin Glargine-YFGN 100 UNIT/ML Pen 30 UNIT SC (21:26)
[2022-08-10 22:51] LABS: Bedside Glucose 174 mg/dL (74-106)
[2022-08-11] MEDS: Acetaminophen 500 MG Tablet 1000 MG PO ×4 (00:08→17:09)
[2022-08-11] MEDS: Methocarbamol 500 MG Tablet 1000 MG PO ×3 (05:57→23:04)
[2022-08-11 07:25] LABS: Bedside Glucose 139 mg/dL (74-106)
[2022-08-11 07:41] VITALS: BP 127/67; PULSE 80; RESP 16; TEMP 35.9; O2SAT 97
[2022-08-11 08:00] VITALS: O2SAT 96
[2022-08-11] MEDS: Insulin Lispro 100 UNIT/ML INSULN.PEN SC ×5 (08:10→23:03)
[2022-08-11] MEDS: Enoxaparin 40 MG/0.4 ML Syringe SC ×2 (08:11→23:02)
[2022-08-11] MEDS: Gabapentin 600 MG Tablet PO (08:11)
[2022-08-11] MEDS: Multivitamins,Therapeutic Tablet 1 TABLET PO (08:11)
[2022-08-11] MEDS: Losartan Potassium 25 MG Tablet PO (08:11)
[2022-08-11] MEDS: LINAGLIPTIN 5 MG TABLET PO (08:11)
[2022-08-11] MEDS: Vitamin B Comp W-C Capsule 1 CAP PO (08:11)
[2022-08-11] MEDS: Cholecalciferol (VIT D3) 25 MCG TABLET (1,000 UNITS) PO (08:11)
[2022-08-11] MEDS: Pantoprazole Sodium 20 MG Tablet PO (08:12)
[2022-08-11 11:26] LABS: Bedside Glucose 228 mg/dL (74-106)
[2022-08-11] MEDS: Insulin Lispro 100 UNIT/ML INSULN.PEN 8 UNIT SC (17:08)
[2022-08-11 17:40] LABS: Bedside Glucose 174 mg/dL (74-106)
[2022-08-11 22:50] VITALS: BP 146/71; PULSE 96; RESP 19; TEMP 36.2; O2SAT 99
[2022-08-11] MEDS: Insulin Glargine-YFGN 100 UNIT/ML Pen 30 UNIT SC (23:03)
[2022-08-12 00:06] LABS: Bedside Glucose 179 mg/dL (74-106)
[2022-08-12] MEDS: Acetaminophen 500 MG Tablet 1000 MG PO ×4 (00:12→18:13)
[2022-08-12] MEDS: Methocarbamol 500 MG Tablet 1000 MG PO ×3 (06:08→21:41)
[2022-08-12 07:11] LABS: Bedside Glucose 149 mg/dL (74-106)
[2022-08-12 07:50] VITALS: BP 148/77; PULSE 99; RESP 17; TEMP 36.1; O2SAT 95
[2022-08-12 08:00] VITALS: O2SAT 95
[2022-08-12] MEDS: Insulin Lispro 100 UNIT/ML INSULN.PEN SC ×5 (08:21→21:40)
[2022-08-12] MEDS: Multivitamins,Therapeutic Tablet 1 TABLET PO (08:23)
[2022-08-12] MEDS: Cholecalciferol (VIT D3) 25 MCG TABLET (1,000 UNITS) PO (08:23)
[2022-08-12] MEDS: Vitamin B Comp W-C Capsule 1 CAP PO (08:23)
[2022-08-12] MEDS: Losartan Potassium 25 MG Tablet PO (08:24)
[2022-08-12] MEDS: Gabapentin 600 MG Tablet PO (08:24)
[2022-08-12] MEDS: Enoxaparin 40 MG/0.4 ML Syringe SC ×2 (08:24→21:41)
[2022-08-12] MEDS: LINAGLIPTIN 5 MG TABLET PO (08:25)
[2022-08-12] MEDS: Pantoprazole Sodium 20 MG Tablet PO (08:25)
[2022-08-12 11:55] LABS: Bedside Glucose 164 mg/dL (74-106)
[2022-08-12 17:15] LABS: Bedside Glucose 154 mg/dL (74-106)
[2022-08-12] MEDS: Insulin Lispro 100 UNIT/ML INSULN.PEN 8 UNIT SC (18:14)
[2022-08-12 20:00] VITALS: BP 118/67; PULSE 93; RESP 18; TEMP 36.2; O2SAT 98
[2022-08-12 21:30] VITALS: PULSE 93; RESP 18; O2SAT 98
[2022-08-12] MEDS: Insulin Glargine-YFGN 100 UNIT/ML Pen 30 UNIT SC (21:39)
[2022-08-12 22:20] LABS: Bedside Glucose 185 mg/dL (74-106)
[2022-08-13] MEDS: Acetaminophen 500 MG Tablet 1000 MG PO ×5 (00:22→23:23)
[2022-08-13] MEDS: Methocarbamol 500 MG Tablet 1000 MG PO ×3 (06:11→21:43)
[2022-08-13 06:55] LABS: Bedside Glucose 157 mg/dL (74-106)
[2022-08-13 07:41] VITALS: BP 138/72; PULSE 85; RESP 18; TEMP 36.2; O2SAT 98
[2022-08-13] MEDS: Insulin Lispro 100 UNIT/ML INSULN.PEN SC ×4 (08:14→12:10)
[2022-08-13] MEDS: Enoxaparin 40 MG/0.4 ML Syringe SC ×2 (09:32→21:16)
[2022-08-13] MEDS: Vitamin B Comp W-C Capsule 1 CAP PO (09:35)
[2022-08-13] MEDS: Pantoprazole Sodium 20 MG Tablet PO (09:35)
[2022-08-13] MEDS: Multivitamins,Therapeutic Tablet 1 TABLET PO (09:35)
[2022-08-13] MEDS: Cholecalciferol (VIT D3) 25 MCG TABLET (1,000 UNITS) PO (09:35)
[2022-08-13] MEDS: Gabapentin 600 MG Tablet PO (09:35)
[2022-08-13] MEDS: LINAGLIPTIN 5 MG TABLET PO (09:35)
[2022-08-13] MEDS: Losartan Potassium 25 MG Tablet PO (09:35)
[2022-08-13 11:30] LABS: Bedside Glucose 172 mg/dL (74-106)
--- NOTE | 2022-08-13 11:50 | PN_ITS ---
Subjective Subjective Afebrile VSS systolics are mildly elevated. Maintaining appropriate oxygen saturation on RA Oral intake is good BS record was reviewed. All BS's are less than 100. Darrin tells me that she will be going back to her prior eating habits at [place] and she will resume the insulin regimen that Dr. Caraballo has her on. She has an appt with Dr. Hill on the . Discussed with nursing - no problems that need addressed. No problems over the weekend and she has been very cooperative. Reviewed the PT/OT notes Medication list reviewed. Has not taken any Oxycodone since the . She is currently on Tylenol 1 GM every 6 hours and Robaxin every 8H and Neurontin 600 mg once a day in the AM. [facility] [place] She denies constipation, calf pain, SOB, CP, palpitations, dysuria, lighthea dedness and abd pain. She rates her pain at 5/10 pretty consistently and she tells me this is adequate relief for her. She tells me that she plans on walking outside with her granddaughter if the weather is nice but, if not she walks back and forth in the mobile home. Objective Data Objective Data Vital Signs: Vital Signs Temp Pulse Resp BP Pulse Ox O2 Del Method 97.2 F L 85 18 138/72 H 98 Room Air 08/13/22 07:41 08/13/22 07:41 08/13/22 07:41 08/13/22 07:41 08/13/22 07:41 08/13/22 07:41 Oxygen Delivery Method Room Air Weight: 242 lb 4.608 oz Body Mass Index (BMI) 41.4 Intake & Output: Intake and Output for Last 24 Hours 08/11/22 08/12/22 08/13/22 23:59 23:59 23:59 Intake Total 480 / 480 240 / 240 240 / 240 Balance 480 / 480 240 / 240 240 / 240 Lab / Micro Data Result Diagrams: 08/04/22 07:25 08/04/22 07:25 Labs: Laboratory Results - last 24 hr 08/12/22 11:30: POC Glucose 164 H 08/12/22 16:54: POC Glucose 154 H 08/12/22 21:37: POC Glucose 185 H 08/13/22 06:34: POC Glucose 157 H 08/13/22 11:11: POC Glucose 172 H Radiography Diagnostic Testing: Radiology Impression Venous Doppler Study 08/09/22 16:31 Interpretation Summary Deep veins of the bilateral lower extremity are patent and compressible segmentally. There is no evidence of bilateral lower extremity deep vein thrombosis. The bilateral great saphenous veins appear patent and compressible segmentally. Ordering Physician: Catalina Medrano Referring Physician: Aquiles Hill Performed By: Christoph Nichols RVT Physical Exam Const alert, oriented x3 and no apparent distress Constitutional Narrative: Sitting in the recliner with her legs elevated. She is pleasant and calm. General Appearance: cooperative HEENT Mouth: dry mucous membranes Resp normal respiratory effort, normal air movement and clear to auscultation bilaterally Resp Narrative: Not tachypneic. Breathing is not labored at rest. Gets winded with exercise. States this has been going on for a while and is nothing new. May be due to de- conditioning.......she was not able to walk prior to the recent lumbar laminectomy and fusion. Cardio regular rhythm Cardio Narrative: Resting HR is frequently in the 90's, possibly due to dehydration......MM are dry GI normal to inspection, nondistended, normoactive bowel sounds Skin General Skin Exam: no breakdown Rashes: no rashes Neuro CN's II-XII intact bilaterally and no focal motor deficits Assessment & Plan Assessment/Plan (1) Debility: (2) Status post laminectomy with spinal fusion: (3) Diabetes mellitus type 1.5: (4) Morbid obesity with BMI of 40.0-44.9, adult: (5) Spinal stenosis of lumbar region: QUALIFIERS: Neurogenic claudication status: unspecified Qualified Code(s): M48.061 - Spinal stenosis, lumbar region without neurogenic claudication PLAN: Plan 1. Plan DC tomorrow. 2. Will transition her to PRN Robaxin 750 mg Q8H PRN muscle spasm. Use sparingly.....this is a high risk medication in the elderly and can be associated with dizziness, sedation, confusion and falls. Would like her to be off Robaxin within the next 4-5 days at home. she will have help at home ( and granddaughter). 3. Check a CBC and a BMP in the AM prior to DC. 4. follow up with Dr. Hill, orthopedic surgery and Dr. Caraballo post DC. 5. Venous US was negative last last . Charges/Coding Visit Charges Inpatient E&M: 00021 Subs Hosp L2
[2022-08-13 16:46] LABS: Bedside Glucose 214 mg/dL (74-106)
--- NOTE | 2022-08-13 16:49 | DCINST_ITS ---
Discharge Instructions Diet Discharge Diet: - (2,000 calorie carb consistent diet. Low salt and low fat. ) Activity Discharge Activity: May Not Drive, May Shower and Use Walker Ice area for (Minutes): 15 (ICE the low back for 10-15 minutes after exercise and PRN for pain control. ) Weight Bearing Status: Full weight bearing Dressing / Incision Call your doctor if your incision/area has: Continuous Slow Oozing, Sudden Increased Bleeding, Increased Pain/ Swelling, Increased Redness, Foul Smelling Discharge and Swelling at the incision site Call your doctor if you observe: Fever of 101 or Higher, Shortness of breath, Dizziness, Fainting spells, Swelling in the ankles, Chest pain, Calf discomfort and Uncontrolled pain Suture Line Care: Avoid Pulling/Pushing and Avoid Pinching/Bending Change Dressing in: do not change dressing Cleanse incision/area with: Do not get Incision Wet (You may shower and pat the incision dry immediately after showering. Do not immerse the incision in water and do not take a bath. ) and Keep Dressing Clean & Dry Follow Up Care Test Results: Test results from this visit will be discussed in further detail at your follow- up appointment, if applicable. Pending Tests Upon Discharge: none Discharge Plan Admission Admit Date/Time: 08/03/22 14:30 Primary Reason for Your Visit: Debility due to lumbar laminaectomy and fusion. Attending Provider: Catalina Medrano Primary Care Provider: Aquiles Hill Instructions Patient Instructions: Lumbar Fusion Dc Additional Instructions / Restrictions: 1. No bending, lifting or twisting. These activities can lead to failure of the bone to fuse. Bone is stronger than the cages/screw/rods and it will take some time for the bone to fuse tightly. A straight back chair will likely be most comfortable for you. 2. After back surgery it is advisable to lose weight. This will help to place less stress on your back. you have been on a 2,000 calorie diet while in rehab and you have lost some weight. You will be able to walk and exercise now that the spinal stenosis has resolved. If you exercise and control your caloric intake you will lose weight and decrease your risk for future back surgeries. Losing weight and exercise will help to decrease your insulin needs. Insulin is a double edged sword......you need it to control your blood sugars but, insulin stimulates appetite and it is easy to gain weight when you are on high doses of insulin. 3. I am giving you a Prescription for the muscle relaxer....it is called Robaxin (also called Methocarbamol). Robaxin is a drug that is considered high risk for individuals > 65 YOA. It can cause sedation, confusion, lightheadedness and contributes to increased falls. You can take this medication every 8 hours if your pain is uncontrolled but, I would limit the use of this drug as much as possible after going home. I would continued Tylenol 1,000 mg every 6 hours for another 7-10 days and then start taking it every 6 hours as needed for pain. Do not sit for longer than an hour without getting up and ambulating. If you sit too long without getting up and moving you will be stiff and have increased pain. Some orthopedic surgeons allow their patients to take a anti-inflammatory drug such as Motrin or Advil and some don't. Please ask your surgeon what he prefers. Anti-inflammatories are good pain relievers. IF you are going to take and anti-inflammatory for pain control always take it with food to decrease the risk of irritating the lining of the stomach. Ice is also good for pain. Ice for 10-15 minutes at a time to help with pain control. 4. Do not take a bath or immerse the wound in water because it may break the incision down. You may take a shower but, dry the incision off immediately after getting out of the shower. 5. a. No bending at the waist b. No lifting more than 5 lbs c. No twisting 6. If you have any questions after leaving the rehab unit please do not hesitate to call me. OFFICE: [phone] CELL: [phone]. Happy Holidays. Discharge Orders/Prescriptions Prescriptions: New acetaminophen 500 mg Tablet 1,000 mg PO Q6 Qty: 1 0RF methocarbamol 750 mg tablet 750 mg PO Q8H PRN (Reason: muscle spasm) Qty: 21 0RF Continued gabapentin 600 mg tablet 600 mg PO DAILY cholecalciferol (vitamin D3) 10 mcg (400 unit) capsule 25 mcg PO DAILY omeprazole 20 mg capsule,delayed release(DR/EC) 20 mg PO DAILY cranberry extract 250 mg tablet 1 mg PO DAILY fluoride (sodium) [PreviDent] 0.2 % solution 10 ml dental QWEEK Januvia 100 mg Tablet 100 mg PO DAILY losartan 25 mg tablet 25 mg PO DAILY multivitamin Tablet 1 tab PO DAILY Changed Humalog U-100 Insulin 100 unit/mL cartridge 12 unit subcut TID Qty: 18 5RF Rx Instructions: plus sliding scale insulin glargine [Lantus Solostar U-100 Insulin] 100 unit/mL (3 mL) insulin pen 35 unit subcut BIDCM Qty: 1 0RF Discontinued acetaminophen 325 mg Tablet 650 mg PO Q6H ciprofloxacin HCl 500 mg Tablet 500 mg PO BID Label Comments: started 08/03/22, x7 days docusate sodium [Colace] 100 mg Capsule 100 mg PO DAILY methocarbamol 500 mg Tablet 1,000 mg PO Q8H polyethylene glycol 3350 [Miralax] 17 gram Powder In Packet 17 g PO DAILY oxycodone 5 mg Capsule 5 mg PO Q4H PRN (Reason: Pain) No Action vitamin B complex [B Complex-Vitamin B12] Tablet 1 tab PO DAILY (DME) lancets Misc See Rx Instructions .ROUTE .MEDSUPPLY Qty: 180 6RF Rx Instructions: 6x/day (DME) Handicap Placard See Rx Instructions .ROUTE .MEDSUPPLY Qty: 1 0RF Rx Instructions: As directed, length of time 3 years (DME) blood-glucose meter [OneTouch Ultra2 Meter] Kit See Rx Instructions .Route Qty: 1 0RF Rx Instructions: As directed (DME) pen needle, diabetic [BD Ultra-Fine Nan Pen Needle] 32 gauge x 5/32 needle See Rx Instructions .ROUTE .MEDSUPPLY Qty: 150 6RF Rx Instructions: 5x/day (DME) OneTouch Ultra Test Strip See Rx Instructions .ROUTE .MEDSUPPLY Qty: 180 6RF Rx Instructions: 6x/day Referrals / Follow Up: Jim Pablo [Other] - 08/20/22 9:45 am Aquiles Hill MD [Primary Care Provider] - Disposition Disposition (needs filled in before D/C Order can be placed): Home, Self Care
[2022-08-13] MEDS: Insulin Lispro 100 UNIT/ML INSULN.PEN 10 UNIT SC (16:58)
[2022-08-13 19:31] VITALS: PULSE 100
--- NOTE | 2022-08-13 19:43 | NURSING ---
pt washed support hose, and they are drying in the bathroom.
[2022-08-13 20:29] VITALS: BP 137/65; PULSE 93; RESP 18; TEMP 36.4; O2SAT 96
[2022-08-13] MEDS: Insulin Glargine-YFGN 100 UNIT/ML Pen 30 UNIT SC (21:15)
[2022-08-13 21:20] LABS: Bedside Glucose 148 mg/dL (74-106)
[2022-08-14] MEDS: Acetaminophen 500 MG Tablet 1000 MG PO (05:28)
[2022-08-14] MEDS: Methocarbamol 500 MG Tablet 1000 MG PO (05:28)
[2022-08-14 06:46] LABS: Bedside Glucose 170 mg/dL (74-106)
[2022-08-14] MEDS: Cholecalciferol (VIT D3) 25 MCG TABLET (1,000 UNITS) PO (08:39)
[2022-08-14] MEDS: Gabapentin 600 MG Tablet PO (08:39)
[2022-08-14] MEDS: Losartan Potassium 25 MG Tablet PO (08:39)
[2022-08-14] MEDS: Pantoprazole Sodium 20 MG Tablet PO (08:40)
[2022-08-14] MEDS: Vitamin B Comp W-C Capsule 1 CAP PO (08:40)
[2022-08-14] MEDS: Multivitamins,Therapeutic Tablet 1 TABLET PO (08:40)
[2022-08-14] MEDS: LINAGLIPTIN 5 MG TABLET PO (08:40)
[2022-08-14] MEDS: Insulin Lispro 100 UNIT/ML INSULN.PEN 6 UNIT SC (08:40)
[2022-08-14 08:43] VITALS: BP 131/70; PULSE 91; RESP 16; TEMP 36.5; O2SAT 97
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
--- NOTE | 2022-08-14 12:19 | NURSING ---
discharged home with spouse. discharge instructions, medications and appointment reviewed with pt. denies questions or concerns
[2022-08-14 12:20] VITALS: BP 131/70; PULSE 91; RESP 16; TEMP 36.5; O2SAT 97
== END 2022-08-14 12:22 | disposition home or self-care (01) | DRG 560 ==
PROVIDERS: Admitting Provider Internal Medicine; PCP Internal Medicine; Visit Provider Internal Medicine
DX: Z47.89 Encounter for other orthopedic aftercare (principal); Z68.41 Body mass index [BMI] 40.0-44.9, adult; E13.42 Other specified diabetes mellitus with diabetic polyneuropathy; Z79.4 Long term (current) use of insulin; E66.01 Morbid (severe) obesity due to excess calories; F60.3 Borderline personality disorder; M19.90 Unspecified osteoarthritis, unspecified site; K21.9 Gastro-esophageal reflux disease without esophagitis; M48.061 Spinal stenosis, lumbar region without neurogenic claudication; M51.26 Other intervertebral disc displacement, lumbar region; Z86.711 Personal history of pulmonary embolism; Z74.09 Other reduced mobility; Z98.1 Arthrodesis status; Z79.899 Other long term (current) drug therapy; G89.29 Other chronic pain; Z86.718 Personal history of other venous thrombosis and embolism
CPT/HCPCS: 36415; 80053; 81001; 82962; 83735; 84100; 85025; 93970; 97110; 97116; 97162; 97165; 97530; 97535; 97802; 97803

== ENCOUNTER → 2022-09-03 | Outpatient (CLI) | payer MEDICARE, OTHER, SELFPAY ==
[2022-09-03 15:07] LABS: Basophil# 0.03 X10^3/uL; Basophil% 0.4 % (0-1); Eosinophil# 0.11 X10^3/uL; Eosinophils% 1.4 % (0-5); Hematocrit 39.9 % (37-47); Hemoglobin 12.7 g/dL (12.0-15.0); Lymphocyte % 26.6 % (19-41); Mean Corp Hgb Conc 31.8 g/dL (32-36); Mean Corpuscular Hgb 30.7 pg (27.0-32.0); Mean Corpuscular Volume 96.4 fL (81-99); Monocyte# 0.57 X10^3/uL; Monocyte% 7.2 % (0-10); NRBC Flagged by Analyzer 0 % (0-5); Neutrophil # 5.04 X10^3/uL (2.7-7.7); Platelet Count 310 K/mm3 (150-450); RBC Distribution Width CV 12.9 % (11.6-14.6); RBC Distribution Width SD 45.6 fl (35.1-43.9); Red Blood Count 4.14 M/mm3 (4.2-5.4); White Blood Count 7.9 K/mm3 (4.4-11.0)
[2022-09-03 15:17] LABS: BNP,B-Type NATRIURETIC PEPTIDE 37.6 pg/mL (0-100)
[2022-09-03 15:28] LABS: Microalbumin,Random Urine < 5.0 mg/L (NO RANGE EST.)
[2022-09-03 15:31] LABS: ALB/GLOB Ratio 0.8 RATIO (0.9-2.4); AST(SGOT) 24 U/L (15-37); Alanine Aminotransfer ALT/SGPT 35 U/L (13-56); Albumin, Serum 3.2 g/dL (3.2-5.0); Alkaline Phosphatase 132 U/L (45-117); Anion Gap 7 (5-15); BUN 13 mg/dL (7-18); Calcium,Total 9.6 mg/dL (8.5-10.1); Chloride 105 mmol/L (98-107); Creatinine, Serum 0.87 mg/dL (0.55-1.02); EST Glomerular Filtration Rate 68 mL/min (>60); Est Glom Filt Rate - Afr Amer 83 mL/min (>60); Globulin 4.1 g/dL (2.2-4.2); Glucose 138 mg/dL (74-106); Magnesium 1.9 mg/dL (1.6-2.6); Protein, Total 7.3 g/dL (6.4-8.2); Sodium Level 138 mmol/L (136-145); Thyroid Stim Hormone (TSH) 2.36 uIU/mL (0.358-3.74)
[2022-09-03 15:41] LABS: D-Dimer Quantitative (DVT/PE) 2.57 FEU/ug/m (0.27-0.49)
== END | disposition home or self-care (01) ==
LOC: BIMLAB 13:44
PROVIDERS: PCP Internal Medicine; Referring Provider Physician Assistant; Visit Provider Physician Assistant
DX: R06.02 Shortness of breath (principal); Z98.1 Arthrodesis status; G56.02 Carpal tunnel syndrome, left upper limb; R60.0 Localized edema
CPT/HCPCS: 36415; 80053; 82043; 82570; 83735; 83880; 84443; 85025; 85379

== ENCOUNTER → 2022-09-04 | Outpatient (CLI) | payer MEDICARE, OTHER, SELFPAY ==
--- NOTE | 2022-09-04 07:52 | VDLE_ITS ---
Reason For Study: Elevated D-Dimer RIGHT LEFT GSV is normal. GSV is normal. CFV is compressible, spontaneous, phasic, CFV is compressible, spontaneous, phasic, competent and demonstrates normal competent, and demonstrates normal augmentation. augmentation. FV is compressible, spontaneous, phasic, FV is compressible, spontaneous, phasic, competent and demonstrates normal competent and demonstrates normal augmentation. augmentation. POP V is compressible, spontaneous, phasic, POP V is compressible, spontaneous, phasic, competent and demonstrates normal competent and demonstrates normal augmentation. augmentation. T/P Trunk is compressible. T/P Trunk is compressible. PTV is compressible. PTV is compressible. RT PerV is compressible. LT PerV is compressible. Procedure LT Meghan V visualized in segments due to This is a venous duplex using B-mode, color swelling. flow and spectral Doppler. Exam performed in department. The exam was diagnostic. A preliminary report was called and/or faxed to Dr. Hill / Joe. VL/Venous Duplex US - [place] Extrem Interpretation Summary No evidence for acute deep venous thrombosis bilateral lower extremities with p atent and compressible bilateral great saphenous veins. Difficulty in visualizing left pe roneal vein as noted Ordering Physician: Etelvina Diaz Referring Physician: Sunday Meehan MD Performed By: Sunday Meehan MD
--- NOTE | 2022-09-04 09:19 | RAD_ITS ---
STUDY: X-RAY - LEFT SHOULDER REASON FOR EXAM: Female, 71 years old. left shoulder/upper arm pain TECHNIQUE: 4 view(s) of the shoulder. COMPARISON: None. FINDINGS: Normal glenohumeral articulation. Normal acromioclavicular joint. Normal acromion. Normal humeral head and visualized proximal humerus. The soft tissue structures are unremarkable. Normal visualized pulmonary apex. RAD/Shoulder min 2 Views IMPRESSION: Normal x-ray examination of the shoulder. Electronically Signed: Maxx Girard MD at 8:44 EST ,
== END | disposition home or self-care (01) ==
PROVIDERS: PCP Internal Medicine; Referring Provider Physician Assistant; Visit Provider Physician Assistant
DX: M25.512 Pain in left shoulder (principal); M79.622 Pain in left upper arm; R60.0 Localized edema; R79.89 Other specified abnormal findings of blood chemistry; Z98.1 Arthrodesis status
CPT/HCPCS: 73030; 93970

== ENCOUNTER → 2022-09-11 | Outpatient (CLI) | payer MEDICARE, OTHER, SELFPAY ==
--- NOTE | 2022-09-11 10:08 | BD_ITS ---
STUDY: DUAL ENERGY X-RAY ABSORPTIOMETRY / DXA REASON FOR EXAM: Female, 71 years old. M810 TECHNIQUE: Bone Mineral Density (BMD) measurements of lumbar spine and bilateral hips were obtained. COMPARISON: None. FINDINGS: Lumbar Spine (L1-L4): g/cm2 (1.091) / T-score (1.0) / Z-score (3.1) Findings are suggestive of normal bone density with a low fracture risk. Left Femur Total: g/cm2 (0.913) / T-score (-0.2) / Z-score (1.4) Left Femoral Neck: g/cm2 (0.738) / T-score (-1.0) / Z-score (0.9) Right Femur Total: g/cm2 (0.882) / T-score (-0.5) / Z-score (1.1) Right Femoral Neck: g/cm2 (0.878) / T-score (0.3) / Z-score (2.2) BD/Dexa Bone Density Study IMPRESSION: The patient is considered normal as outlined below according to World Pablo Organization (WHO) criteria with a low fracture risk. Reference Information: The T-score is the number of standard deviations above or below the standard which is normal for young adults at their peak bone mineral density. The World Health Organization (WHO) interprets the T-scores as follows: Above -1 Normal bone density Between -1 and -2.5 Osteopenia Equal to / or below -2.5 Osteoporosis As a practical clinical guideline, osteopenia may be graded as follows: Mild -1 through -1.5 Moderate -1.6 through -2.0 Severe -2.1 through -2.4 The Z-score is the number of standard deviations above or below age-matched controls. A Z-score of less than -1.5 would be considered abnormal. References: 1. NIH Osteoporosis and Related Bone Diseases www osteo.org 2. International Society for Clinical Densitometry www iscd.org 3. National Osteoporosis Foundation www nof.org Electronically Signed: Waqas Faulkner MD at 9:29 EST ,
== END | disposition home or self-care (01) ==
LOC: OPBD 09:24
PROVIDERS: PCP Internal Medicine; Referring Provider Psychiatry & Neurology Neurology; Visit Provider Psychiatry & Neurology Neurology
DX: M81.0 Age-related osteoporosis without current pathological fracture (principal)
CPT/HCPCS: 77080

== ENCOUNTER → 2022-12-21 | Outpatient (CLI) | payer MEDICARE, OTHER, SELFPAY ==
[2022-12-21 10:27] LABS: Mucous, Urine 0 SEEN /hpf (<or=2+); Red Blood Cells-Urine 0 SEEN /hpf (0-5); Squamous Epithelial Cells - UA 0 SEEN /hpf (5-10)
[2022-12-21 10:29] LABS: Color, Urine Yellow (Yellow); Glucose, Dipstick Normal (Normal); Ketone-Dipstick Negative (Negative); Leukocyte Esterase-Dipstick 500 /ul (Negative); Nitrite-Dipstick Positive (Negative); Occult Blood-Urine 25 /ul (Negative); Protein-Dipstick 30 mg/dl (Negative); Specific Gravity, Urine 1.025 (1.002-1.030); Urine Bilirubin Dipstick Negative (Negative); Urine Clarity Sl. Cloudy (Clear); Urine Urobilinogen Normal (Normal)
[2022-12-21 10:38] LABS: Bacteria 2+ /hpf (None Seen); White Blood Cells >100 SEEN /hpf (0-5)
== END | disposition home or self-care (01) ==
LOC: LABSPEC 10:15
PROVIDERS: PCP Internal Medicine; Referring Provider Physician Assistant Medical; Visit Provider Physician Assistant Medical
DX: N39.0 Urinary tract infection, site not specified (principal)
CPT/HCPCS: 81001; 87086; 87088

== ENCOUNTER 2023-01-11 13:53 | Emergency (ER) | payer MEDICARE, OTHER, SELFPAY ==
[2023-01-11 13:54] VITALS: BP 153/77; PULSE 94; RESP 18; TEMP 36.3; O2SAT 94; BMI 39.4
--- NOTE | 2023-01-11 15:02 | EX.ED.DYSGE1 ---
HPI History of Present Illness Chief Complaint: Wound Detail of Chief Complaint: Left hand redness Informant: patient Narrative Narrative: Patient presents secondary to left hand pain and redness. She was seen by Dr. Alonso yesterday from neurology. She had a injection into the palm of her hand for trigger finger of her left third finger. She states has had pain since the time of the injection. Today she noted some redness over the site. She called Dr. Alonso's office who told her to come to the emergency room. She is to call him on Saturday with an update. She denies fever or chills. No drainage. She does feel more comfortable with her hand-held flexed. [facility] Medical History Ambulates with cane Anemia Breast cancer screening Carpal tunnel syndrome, left Cataract fragments in right eye following surgery Cataracts, bilateral Cervical radiculopathy at C8 Cervical spinal stenosis Chronic back pain Chronic cough Chronic neck pain Cubital tunnel syndrome on left Degenerative arthritis of hip Diabetes mellitus type 1.5 DM neuropathies DVT (deep venous thrombosis) Easy bruising Gastric reflux Glaucoma Gout Alexis's thyroiditis Hemorrhoid Herniated nucleus pulposus, L3-4 left History of anesthesia problem History of breast lump History of stress test History of UTI Hypertension Hypertension IBS (irritable bowel syndrome) Impaired gait and mobility Intertriginous dermatitis associated with moisture Left shoulder pain Left upper arm pain Liver hemangioma Lupus Morbid obesity with BMI of 40.0-44.9, adult Osteoarthritis Osteopenia Polyneuropathy Pulmonary embolism Rheumatoid arthritis Seasonal allergies Spinal stenosis of lumbar region Syncope Ulcer Walker as ambulation aid Home Medications cholecalciferol (vitamin D3) 10 mcg (400 unit) capsule 25 mcg PO DAILY Check with primary doctor 07/06/21 [History Last Taken Unknown] gabapentin 600 mg tablet 600 mg PO DAILY Check with primary doctor 07/06/21 [History Last Taken Unknown] fluoride (sodium) 0.2 % dental solution (PreviDent) 10 ml dental QWEEK tooth decay prevention 09/18/21 [History Last Taken Unknown] vitamin B complex (B Complex-Vitamin B12 tablet) 1 tab PO DAILY supplement 09/18/21 [History Last Taken Unknown] losartan 25 mg tablet 25 mg PO DAILY BP 03/14/22 [History Last Taken 03/27/22] sitagliptin phosphate 100 mg tablet (Januvia) 100 mg PO DAILY diabetes 03/14/22 [History Last Taken Unknown] blood-glucose meter (OneTouch Ultra2 Meter kit) #1 ea 05/17/22 [Rx Last Taken Unknown] blood sugar diagnostic (OneTouch Ultra Test strips) #180 ea 07/20/22 [Rx Last Taken Unknown] multivitamin 1 tab PO DAILY supplement 08/03/22 [History Last Taken Unknown] cranberry extract 250 mg tablet 1 mg PO DAILY Check with primary doctor 08/20/22 [History Last Taken Unknown] circaid wrap #2 ea 09/03/22 [Rx Last Taken Unknown] lancets #180 ea 09/03/22 [Rx Last Taken Unknown] acetaminophen 500 mg tablet 1,000 mg PO Q6 PRN 11/28/22 [History Last Taken Unknown] insulin lispro 100 unit/mL subcutaneous cartridge (Humalog U-100 Insulin) 9 unit (0.09 mL) subcut TID diabetes #24.3 mL 11/28/22 [Rx Last Taken Unknown] omeprazole 20 mg capsule,delayed release 20 mg PO DAILY PRN reflux 11/28/22 [History Last Taken Unknown] insulin glargine 100 unit/mL (3 mL) subcutaneous pen (Lantus Solostar U-100 Insulin) 25 unit (0.25 mL) subcut DAILY DM #15 mL 11/29/22 [Rx Last Taken Unknown] Handicap Placard #1 ea 12/10/22 [Rx Last Taken Unknown] amoxicillin 875 mg-potassium clavulanate 125 mg tablet 1 tab PO BID #14 tabs 12/21/22 [Rx Last Taken Unknown] pen needle, diabetic 32 gauge x 5/32 (BD Ultra-Fine Nan Pen Needle) #150 ea 12/27/22 [Rx Last Taken Unknown] doxycycline monohydrate 100 mg capsule 100 mg PO BID #20 CAPSULES 01/11/23 [Rx Last Taken Unknown] Allergy/AdvReac Type Severity Reaction Status Date / Time aspirin Allergy Upset Verified 01/11/23 13:58 Stomach capsaicin Allergy Rash Verified 01/11/23 13:58 chlorhexidine Allergy Rash Verified 01/11/23 13:58 codeine Allergy Vomiting Verified 01/11/23 13:58 empagliflozin Allergy Other Verified 01/11/23 13:58 [From Jardiance] erythromycin base Allergy Other Verified 01/11/23 13:58 hydrocodone [From [place]] Allergy Other Verified 01/11/23 13:58 Sulfa (Sulfonamide Allergy Rash Verified 01/11/23 13:58 Antibiotics) tramadol Allergy Other Verified 01/11/23 13:58 trimethoprim Allergy PT UNSURE Verified 01/11/23 13:58 OF REACTION baclofen AdvReac Severe nightmares Verified 01/11/23 13:58 adhesive tape AdvReac Rash Verified 01/11/23 13:58 buprenorphine AdvReac Rash Verified 01/11/23 13:58 carbidopa [From Sinemet] AdvReac Rash Verified 01/11/23 13:58 cat dander AdvReac Other Verified 01/11/23 13:58 cigarette smoke AdvReac Other Verified 01/11/23 13:58 ciprofloxacin AdvReac Rash Verified 01/11/23 13:58 cyclobenzaprine AdvReac Nausea Verified 01/11/23 13:58 Environmental Allergies: AdvReac Other Verified 01/11/23 13:58 Uncoded levodopa [From Sinemet] AdvReac Other Verified 01/11/23 13:58 meperidine AdvReac PT UNSURE Verified 01/11/23 13:58 OF REACTION sulfamethoxazole AdvReac Nausea Verified 01/11/23 13:58 [From Septra] Family History Grandmother Cerebral aneurysm CVA (cerebral vascular accident) Brother CVA (cerebral vascular accident) Cancer Mother CVA (cerebral vascular accident) Father Cancer Other Diabetes Heart disease Hypertension Myocardial infarction Surgical History H/O: hysterectomy History of ankle surgery History of cataract removal with insertion of prosthetic lens History of lumbar laminectomy History of lumbar spinal fusion History of total right knee replacement Hx of cholecystectomy Hx of laminectomy Hx of tonsillectomy Social History household members: spouse Smoking Status: Never smoker Electronic Cigarette Use: not used second hand exposure: No alcohol intake: never substance use type: does not use what type of physical activity do you participate in: none sharla/samaritan: None seatbelt use: always ROS ROS ED Constitutional Constitutional ED: Denies chills or fever(s) Eyes Eyes: Denies change in vision or discharge from eye(s) ENT ENT ED: Denies discharge from eye(s), rhinorrhea or sore throat Cardiovascular Cardiovascular: Denies chest pain or palpitations Respiratory/Chest Respiratory/Chest: Denies cough or dyspnea Gastrointestinal Gastrointestinal: Denies abdominal pain, nausea or vomiting Genitourinary Genitourinary ED: Denies dysuria Musculoskeletal Musculoskeletal: Reports extremity pain; Denies back pain Integumentary Reports rash; Denies Abrasions Neurologic Neurologic: Denies headache(s) or weakness Psychiatric Psychiatric: Denies anxiety or depression Allergic/Immunologic Allergic/Immunologic ED: Denies lip swelling or urticaria EXAM Physical Exam Const Vital Signs: 01/11/23 13:54 Temperature 97.3 F L Temperature Source Temporal Pulse Rate 94 Respiratory Rate 18 Blood Pressure 153/77 H Blood Pressure Mean 102 Pulse Ox 94 Oxygen Delivery Method Room Air Positive well nourished and well developed General Appearance ED: well developed HEENT Reports normocephalic and head/scalp atraumatic Eyes PERRL and EOMs intact bilaterally Neck supple Chest Wall inspection of chest normal and palpation of chest normal Resp normal respiratory effort and clear to auscultation bilaterally Cardio regular rate and regular rhythm GI normal to inspection, nondistended, normoactive bowel sounds Palpation: soft Extremity Extremity Narrative: Left hand with fingers held in slight flexion. There is a focal area of redness over the mid palm measuring approximate 1.5 cm in diameter. This is area is focally tender. There is no palpable tenderness along the flexor tendon sheath. There is no erythema or streaking in the arm. Neuro oriented x3 Sensorium / Orientation: alert Psych mental status grossly normal MDM MDM MDM Narrative Medical decision making narrative: Labwork obtained to evaluate for leukocytosis, anemia, and electrolyte derangement. Left hand x-ray obtained to evaluate for any bony destruction or fluid collection/air in the soft tissue. Lab Data Attestation: I reviewed the patient's lab results. Labs: Laboratory Results - last 24 hr 01/11/23 01/11/23 15:15 15:15 WBC 13.7 H RBC 4.68 Hgb 14.4 Hct 44.0 MCV 94.0 MCH 30.8 MCHC 32.7 RDW Std Deviation 44.1 H RDW Coeff of [place] 12.8 Plt Count 301 MPV 8.9 Immature Gran % (Auto) 0.300 Neut % (Auto) 82.3 H Lymph % (Auto) 12.9 L [place] % (Auto) 4.2 Eos % (Auto) 0.1 Baso % (Auto) 0.2 Absolute Neuts (auto) 11.3 H Absolute Lymphs (auto) 1.77 Nucleated RBC % 0 ESR 45 H Sodium 134 L Potassium 4.5 Chloride 105 Carbon Dioxide 25.0 Anion Gap 4 L BUN 17 Creatinine 0.92 Estim Creat Clear Calc 51.74 Est GFR (MDRD) Af Amer 77 Est GFR (MDRD) Non-Af 64 BUN/Creatinine Ratio 18.5 Glucose 182 H Calcium 9.4 C-React Prot Ext Range 6.38 H Radiography Diagnostic Testing: Clinical Impression(s) from Imaging Studies Hand X-Ray 01/11/23 15:30 IMPRESSION: No evidence of osteomyelitis. Prominent osteoarthritis. Electronically Signed: Alexis Molina MD at 15:57 EDT Reading Location ID and State: [facility] / [place] Tel , Service support , Treatment and Re-Evaluation :: White blood cell count is 13.7 with 82% neutrophils. This may be reactive given her recent steroid injection. Sed rate is 45 and CRP is 6.38. Chemistry studies are remarkable only for glucose of 182. Left hand x-rays per my interpretation reveal no evidence of bony abnormality. No obvious fluid collection or soft tissue gas noted. Radiology interpretation is reviewed and agrees. Patient be started on doxycycline. First dose given here and prescription sent. She is to follow-up with neurology via phone call on Saturday. She was instructed to return if symptoms worsen. On repeat examination there continues to be no evidence of flexor tenosynovitis Discharge Plan Triage Chief Complaint: Wound ED Provider: Keturah Diego Dx/Rx/DC Orders Clinical Impression: Hand pain, left, Cellulitis Instructions: ED Cellulitis Prescriptions: New doxycycline monohydrate 100 mg capsule 100 mg PO BID Qty: 20 0RF No Action gabapentin 600 mg tablet 600 mg PO DAILY cholecalciferol (vitamin D3) 10 mcg (400 unit) capsule 25 mcg PO DAILY cranberry extract 250 mg tablet 1 mg PO DAILY Label Comments: 30,000 omeprazole 20 mg capsule,delayed release(DR/EC) 20 mg PO DAILY PRN (Reason: reflux) fluoride (sodium) [PreviDent] 0.2 % solution 10 ml dental QWEEK vitamin B complex [B Complex-Vitamin B12] Tablet 1 tab PO DAILY acetaminophen 500 mg tablet 1,000 mg PO Q6 PRN Humalog U-100 Insulin 100 unit/mL cartridge 9 unit subcut TID Qty: 24.3 1RF Rx Instructions: plus sliding scale (DME) Handicap Placard See Rx Instructions .ROUTE .MEDSUPPLY Qty: 1 0RF Rx Instructions: As directed, length of time 3 years (DME) lancets Misc See Rx Instructions .ROUTE .MEDSUPPLY Qty: 180 6RF Rx Instructions: 4x/day (DME) circaid wrap large See Rx Instructions .Route .MEDSUPPLY Qty: 2 2RF Rx Instructions: Wear daily, remove at bedtime amoxicillin-pot clavulanate 875-125 mg tablet 1 tab PO BID Qty: 14 0RF Januvia 100 mg Tablet 100 mg PO DAILY losartan 25 mg tablet 25 mg PO DAILY multivitamin Tablet 1 tab PO DAILY (DME) blood-glucose meter [OneTouch Ultra2 Meter] Kit See Rx Instructions .Route Qty: 1 0RF Rx Instructions: As directed (DME) OneTouch Ultra Test Strip See Rx Instructions .ROUTE .MEDSUPPLY Qty: 180 6RF Rx Instructions: 6x/day insulin glargine [Lantus Solostar U-100 Insulin] 100 unit/mL (3 mL) insulin pen 25 unit subcut DAILY Qty: 15 3RF (DME) pen needle, diabetic [BD Ultra-Fine Nan Pen Needle] 32 gauge x 5/32 needle See Rx Instructions .ROUTE .MEDSUPPLY Qty: 150 6RF Rx Instructions: 5x/day Primary Care Provider: Aquiles Hill Referrals: Aquiles Hill MD [Primary Care Provider] - Antonio Brooks MD [Non-Staff -Ordering Privileges] - 3-5 Days Disposition Disposition: Home, Self Care
--- NOTE | 2023-01-11 15:30 | RAD_ITS ---
EXAM: XR LEFT HAND COMPLETE, 3 OR MORE VIEWS CLINICAL INDICATION: infection TECHNIQUE: Frontal, lateral and oblique views of the left hand. This report was created using [employer] report generation technology. COMPARISON: None. FINDINGS: BONES/JOINTS: No acute fracture or subluxation. No evidence of osteomyelitis. Prominent osteoarthritic changes of the DIP and first CMC joints. SOFT TISSUES: Normal. No soft tissue swelling or gas. No radiopaque foreign body. RAD/Hand Min 3 Views IMPRESSION: No evidence of osteomyelitis. Prominent osteoarthritis. Electronically Signed: Alexis Molina MD at 15:57 EDT ,
[2023-01-11 15:38] LABS: Absolute Lymphocyte Count 1.77 X10^3/uL (0.83-4.51); Absolute Neutrophil Count 11.3 X10^3/uL (2.0-7.7); Basophil# 0.03 X10^3/uL; Basophil% 0.2 % (0-1); Eosinophil# 0.01 X10^3/uL; Eosinophils% 0.1 % (0-5); Hemoglobin 14.4 g/dL (12.0-15.0); Lymphocyte # 1.77 X10^3/ul (0.83-4.51); Lymphocyte % 12.9 % (19-41); Mean Corp Hgb Conc 32.7 g/dL (32-36); Mean Corpuscular Hgb 30.8 pg (27.0-32.0); Mean Platelet Vol. 8.9 fl (6.2-12.0); Monocyte# 0.58 X10^3/uL; Monocyte% 4.2 % (0-10); NRBC Flagged by Analyzer 0 % (0-5); Neutrophil # 11.26 X10^3/uL (2.7-7.7); Neutrophil % 82.3 % (47-70); Platelet Count 301 K/mm3 (150-450); RBC Distribution Width CV 12.8 % (11.6-14.6); RBC Distribution Width SD 44.1 fl (35.1-43.9); Red Blood Count 4.68 M/mm3 (4.2-5.4); White Blood Count 13.7 K/mm3 (4.4-11.0)
[2023-01-11 15:48] LABS: Erythrocyte Sedimentation Rate 45 mm/hr (0-30)
[2023-01-11 16:03] LABS: Anion Gap 4 (5-15); BUN 17 mg/dL (7-18); BUN/Creat Ratio 18.5 RATIO (10-20); CRP 6.38 mg/L (0.0-3.0); Calcium,Total 9.4 mg/dL (8.5-10.1); Chloride 105 mmol/L (98-107); Creatinine, Serum 0.92 mg/dL (0.55-1.02); EST Glomerular Filtration Rate 64 mL/min (>60); Est Glom Filt Rate - Afr Amer 77 mL/min (>60); Estimated Creatinine Clearance 51.74 ml/min; Glucose 182 mg/dL (74-106); Potassium 4.5 mmol/L (3.5-5.1); Sodium Level 134 mmol/L (136-145)
[2023-01-11] MEDS: Doxycycline 100 MG CAPSULE PO (16:29)
== END 2023-01-11 16:35 | disposition home or self-care (01) ==
PROVIDERS: Emergency Provider Emergency Medicine; PCP Internal Medicine; Referring Provider Emergency Medicine; Visit Provider Emergency Medicine
DX: L03.114 Cellulitis of left upper limb (principal); E13.9 Other specified diabetes mellitus without complications; I10 Essential (primary) hypertension
CPT/HCPCS: 73130; 80048; 85025; 85652; 86140; 87040; 99284

== ENCOUNTER 2023-01-15 09:00 | Outpatient (RCR) | payer MEDICARE, OTHER, SELFPAY ==
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
--- NOTE | 2022-09-19 12:19 | HP.PTREVAL_ITS ---
Dr. Aquiles Hill MD, It has been my pleasure to treat TRISTEN GOMEZ over the last 8 visits for lumbar laminectomy, L3-4 lateral lumbar interbody fusion (XLIF). Please see the progress note below for an update on the physical therapy plan of care! Subjective: Pt. reports having some progress, but is still having some pain in her back and legs. Pt. reports walking more up to 1 hour at local stores. She reports initial walking is not too bad, but does get worse as she walks more. Objective/Function: Pt. reports mostly of overall fatigue in her back and legs. Pt. reports being frustrated with her difficulty with sleeping, some with her pain, but some with family situation. Pt. reports many issues with her home. ROM: Lumbar spine: flexion mod loss NE, ext mod/max loss NE, SB mod loss NE, rotation mod loss NE. Tight B HS and hip flexors. MMT: Pt. has 4+/5 throughout BLEs distally (ankle and knees); hip: 4/5 throughout with mild increase NW. GAIT: Pt. ambulates with a rollator with good tolerance. Pt. does have a flexed posture with gait, but fairly normal step length. She is able to ambulate without AD, but much more guarded posture with decreased step length bilaterally. Pt. is able to get up and out of chair with use of BUEs without issues. Plan Plan: Pt. is to complete another stint of aquatic PT with focus on improving BLE and core strength. I talked to her about being more active at home, walking more frequently. I don't see any adverse reaction with PT and I would like her to slowly progress her core and BLE strengthening and progress a walking routine. Pt. consents. Balance/Gait/Functional tests - Balance/Special Test Scores Oswestry Low Back Score: 21 Goals Goal 1:: LTG: Pt. to be I with HEP for Core and BLE strengthening. Goal Time Frame: 4-6 Weeks Goal Progress: Progressing Goal 2:: STG: Pt. to be able to sleep throughout the night without increase in symptoms. Goal Time Frame: 2-4 Weeks Goal Progress: Progressing Goal 3:: LTG: Pt. to be able to ambulate with rollator community level distances without increase in lumbar or BLE pain. Goal Time Frame: 4-6 Weeks Goal Progress: Progressing Goal 4:: LTG: Pt. to have increased BLE and core strength increased to 5/5 throughout allowing for increased stability and control with all daily and household activities. Goal Time Frame: 4-6 Weeks Goal Progress: Progressing Goal 5:: LTG: Pt. to be able to stand up from reclining chair without need of external assistance from . Goal Time Frame: 4-6 Weeks Goal Progress: Progressing Anticipated Interventions Patient/Client Instruction: Educate patient on: Condition, Plan of Care, Risk Factors, Benefits of Fitness Program For the Purpose of:: To foster healthy habits, To improve decision making, To facilitate caregiver knowledge, To improve self management, To prevent re- injury, To improve ability to perform tasks related to life management, To improve tolerance to ADL's Therapeutic Exercise to Include: Strength training, Power training, Body mechanics, Postural training, Flexibilty training, Gait and locomotor training, Dynamic Lumbar Stabilization For the Purpose of:: To decrease pain, To increase ROM, To improve nutrient delivery to tissue, To increase oxygenation perfusion, To improve muscle performance and motor function, To improve ability to perform ADL's, To improve performance and independence with ADL's, To decrease level of supervision to perform tasks, To improve ability of physical actions for home/community/work/leisure, To improve gait and locomotor functions, To improve health of tissue, To decrease soft tissue restriction, To increase flexibility/ROM Please do not hesitate to contact me at [phone] by phone or if you have questions or concerns regarding this new plan of care! Sincerely, Aron Sutton DPT
--- NOTE | 2022-11-07 09:23 | HP.PTREVAL_ITS ---
Dr. Aquiles Hill MD, It has been my pleasure to treat TRISTEN GOMEZ over the last 17 visits for lumbar laminectomy, L3-4 lateral lumbar interbody fusion (XLIF). Please see the progress note below for an update on the physical therapy plan of care! Subjective: Pt. arrives with her grand daughter today. Pt. is now walking with walking stick rather than rollator. Pt. reports being HEP compliant. Objective/Function: ROM: flexion min loss NE, ext mod loss mild increase NW, SB min loss mild increase NW, rotation min/mod loss bilat mild increase nW. Pt. does have increased tightness in B HS and hip flexors. MMT: Pt. has 5/5 strength in her distal LEs, 4/5 throughout hips bilaterally. Pt. has poor+ core strength. He does have better activation of TA, but still limited with active trunk flexion (rectus). GAIT: Pt. is ambulating with walking stick now with improved control. Her posture is much better and is having a decent tolerance. Pt. repots no increase in symptoms. She has improved step length, but still requires standing rest periods. Pt's main concern is with her groin pain. She reports she is going to follow up with her physician about this. I am not so sure it is related to her back or her L hip joint it self. Overall she has made good gains in the aquatic setting. She did disclose to me that she is in the process of seperating from her and moving away with her grand daughter. This stress could be adding to her issues as well. I talked to her about progressing to I pool program. Her grand daughter talked about a gym close to where they are moving having access. They also asked about going to [employer]. I encouraged this, but to start slowly with activities and focus on LE strengthening and walking. pt. consents. Plan Plan: Pt. to continue to pool with focus on progressive core strengthening and mobility. Goal is progressing to I program. Balance/Gait/Functional tests - Balance/Special Test Scores Oswestry Low Back Score: 16 Goals Goal 1:: LTG: Pt. to be I with HEP for Core and BLE strengthening. Goal Time Frame: 4-6 Weeks Goal Progress: Progressing Goal 2:: STG: Pt. to be able to sleep throughout the night without increase in symptoms. Goal Time Frame: 2-4 Weeks Goal Progress: Goal Met Goal 3:: LTG: Pt. to be able to ambulate with rollator community level distances without increase in lumbar or BLE pain. Goal Time Frame: 4-6 Weeks Goal Progress: Goal Met Goal 4:: LTG: Pt. to have increased BLE and core strength increased to 5/5 throughout allowing for increased stability and control with all daily and household activities. Goal Time Frame: 4-6 Weeks Goal Progress: Progressing Goal 5:: LTG: Pt. to be able to stand up from reclining chair without need of external assistance from . Goal Time Frame: 4-6 Weeks Goal Progress: Goal Met Goal 6:: NEW GOAL: Pt. to ambulate with walking stick with good upright posture for at least 500' allowing for increased ability to walk throughout stores with 0-2/10 pain in lumbar spine and hips. Goal Time Frame: 4-6 Weeks Goal Progress: Progressing Anticipated Interventions Patient/Client Instruction: Educate patient on: Condition, Plan of Care, Risk Factors, Benefits of Fitness Program For the Purpose of:: To foster healthy habits, To improve decision making, To facilitate caregiver knowledge, To improve self management, To prevent re- injury, To improve ability to perform tasks related to life management, To improve tolerance to ADL's Therapeutic Exercise to Include: Strength training, Power training, Body mechanics, Postural training, Flexibilty training, Gait and locomotor training, Dynamic Lumbar Stabilization For the Purpose of:: To decrease pain, To increase ROM, To improve nutrient delivery to tissue, To increase oxygenation perfusion, To improve muscle performance and motor function, To improve ability to perform ADL's, To improve performance and independence with ADL's, To decrease level of supervision to perform tasks, To improve ability of physical actions for home/community/work/leisure, To improve gait and locomotor functions, To improve health of tissue, To decrease soft tissue restriction, To increase flexibility/ROM Please do not hesitate to contact me at [phone] by phone or Fax: if you have questions or concerns regarding this new plan of care! Sincerely, Aron Sutton DPT
--- NOTE | 2022-12-03 09:24 | HP.PTREVAL ---
Dr. Aquiles Hill MD, It has been my pleasure to treat TRISTEN GOMEZ over the last 25 visits for lumbar laminectomy, L3-4 lateral lumbar interbody fusion (XLIF). Please see the progress note below for an update on the physical therapy plan of care! Subjective: Pt. reports overall doing better. She reports the lower aspect of her pain is better 4/10 pain, upper back is 7/10 pain and no groin pain. Pt. did walk in with walking stick which she reports causes more soreness, but was unable to get to her rollator this morning. Objective/Function: ROM: LUMBAR SPINE: flexion nil/nil loss NE, ext mod loss NE, SB mod loss bilat NE, rotation mod loss NE. All directions did not seem to increase her symptoms. MMT: BLEs: Pt. has 5-/5 throughout distal BLEs. B hips; 4/5 throughout. Core strength: poor+. STAIRS: step to pattern, with 2 HR with decreased tempo. GAIT: Pt. ambulates with rollator and with walking sticking. Pt. has a slight lateral shift to R side. Pt. ambulated 175' with walking stick prior to needing to sit down due to my back getting tired.. Pt. reports she is getting better, but slowly. Pt. reports wanting to walk better with less pain in her back. Pt. reports that her back does fatigue quickly causing her sit down frequently. Tristen is improving, but slowly. Pt. does fatigue rapidly. Plan Plan: I want to continue with aquatic therapy. Add in some progressive stair training, progressive core stability exercises. Progress the beater worker helper exercises to HEP. Pt. to be I with HEP. Pt. to add in walking program at home as well. Balance/Gait/Functional tests - Balance/Special Test Scores Oswestry Low Back Score: 12 Goals Goal 1:: LTG: Pt. to be I with HEP for Core and BLE strengthening. Goal Time Frame: 4-6 Weeks Goal Progress: Progressing Goal 2:: STG: Pt. to be able to sleep throughout the night without increase in symptoms. Goal Time Frame: 2-4 Weeks Goal Progress: Goal Met Goal 3:: LTG: Pt. to be able to ambulate with rollator community level distances without increase in lumbar or BLE pain. Goal Time Frame: 4-6 Weeks Goal Progress: Goal Met Goal 4:: LTG: Pt. to have increased BLE and core strength increased to 5/5 throughout allowing for increased stability and control with all daily and household activities. Goal Time Frame: 4-6 Weeks Goal Progress: Progressing Goal 5:: LTG: Pt. to be able to stand up from reclining chair without need of external assistance from . Goal Time Frame: 4-6 Weeks Goal Progress: Goal Met Goal 6:: NEW GOAL: Pt. to ambulate with walking stick with good upright posture for at least 500' allowing for increased ability to walk throughout stores with 0-2/10 pain in lumbar spine and hips. Goal Time Frame: 4-6 Weeks Goal Progress: Progressing Anticipated Interventions Patient/Client Instruction: Educate patient on: Condition, Plan of Care, Risk Factors, Benefits of Fitness Program For the Purpose of:: To foster healthy habits, To improve decision making, To facilitate caregiver knowledge, To improve self management, To prevent re-injury, To improve ability to perform tasks related to life management, To improve tolerance to ADL's Therapeutic Exercise to Include: Strength training, Power training, Body mechanics, Postural training, Flexibilty training, Gait and locomotor training, Dynamic Lumbar Stabilization For the Purpose of:: To decrease pain, To increase ROM, To improve nutrient delivery to tissue, To increase oxygenation perfusion, To improve muscle performance and motor function, To improve ability to perform ADL's, To improve performance and independence with ADL's, To decrease level of supervision to perform tasks, To improve ability of physical actions for home/community/work/leisure, To improve gait and locomotor functions, To improve health of tissue, To decrease soft tissue restriction, To increase flexibility/ROM Please do not hesitate to contact me at [phone] by phone or if you have questions or concerns regarding this new plan of care! Sincerely, Aron Sutton DPT
--- NOTE | 2022-12-27 09:32 | HP.PTREVAL_ITS ---
Dr. Aquiles Hill MD, It has been my pleasure to treat TRISTEN GOMEZ over the last 34 visits for lumbar laminectomy, L3-4 lateral lumbar interbody fusion (XLIF). Please see the progress note below for an update on the physical therapy plan of care! Subjective: Pt. reports overall doing much better. She arrives today walking with walking sticking. She does not use AD at home. She has concerns about using stairs and would like to be I with these prior to be done with PT. Objective/Function: MMT: 5/5 throughout BLEs without increase in symptoms. GAIT: Pt. does have a slight antalgic pattern during L stance phase. She has slight flexed posture, but is overall doing much better. ROM: Lumbar: flexion min loss NE, ext mod loss NE, SB min loss bilat mild increase NW, rotation mod loss increase NW. Pt. major increase in symptoms with trials this date. Overall she is doing much better with her gait and with her mobility. She still has some pain, but I talked to her that this may take some some time. I would like her to continue with her aquatic exercises on her own at this point in time. I would like her to continue to progress a walking program as tolerated, especially now that the weather is getting better. She reported not feeling safe with her stair negotiation. We will work for 2 weeks on this then DC to I HEP. Plan Plan: Pt. to work on stairs x2 times per week for 2 weeks then DC to HEP I at that point in time. Balance/Gait/Functional tests - Balance/Special Test Scores Oswestry Low Back Score: 5 Goals Goal 1:: LTG: Pt. to be I with HEP for Core and BLE strengthening. Goal Time Frame: 4-6 Weeks Goal Progress: Goal Met Goal 2:: STG: Pt. to be able to sleep throughout the night without increase in symptoms. Goal Time Frame: 2-4 Weeks Goal Progress: Goal Met Goal 3:: LTG: Pt. to be able to ambulate with rollator community level distances without increase in lumbar or BLE pain. Goal Time Frame: 4-6 Weeks Goal Progress: Goal Met Goal 4:: LTG: Pt. to have increased BLE and core strength increased to 5/5 throughout allowing for increased stability and control with all daily and household activities. Goal Time Frame: 4-6 Weeks Goal Progress: Goal Met Goal 5:: LTG: Pt. to be able to stand up from reclining chair without need of external assistance from . Goal Time Frame: 4-6 Weeks Goal Progress: Goal Met Goal 6:: NEW GOAL: Pt. to ambulate with walking stick with good upright posture for at least 500' allowing for increased ability to walk throughout stores with 0-2/10 pain in lumbar spine and hips. Goal Time Frame: 4-6 Weeks Goal Progress: Progressing Anticipated Interventions Patient/Client Instruction: Educate patient on: Condition, Plan of Care, Risk Factors, Benefits of Fitness Program For the Purpose of:: To foster healthy habits, To improve decision making, To facilitate caregiver knowledge, To improve self management, To prevent re- injury, To improve ability to perform tasks related to life management, To improve tolerance to ADL's Therapeutic Exercise to Include: Strength training, Power training, Body mechanics, Postural training, Flexibilty training, Gait and locomotor training, Dynamic Lumbar Stabilization For the Purpose of:: To decrease pain, To increase ROM, To improve nutrient delivery to tissue, To increase oxygenation perfusion, To improve muscle performance and motor function, To improve ability to perform ADL's, To improve performance and independence with ADL's, To decrease level of supervision to perform tasks, To improve ability of physical actions for home/community/work/leisure, To improve gait and locomotor functions, To improve health of tissue, To decrease soft tissue restriction, To increase flexibility/ROM Please do not hesitate to contact me at [phone] by phone or if you have questions or concerns regarding this new plan of care! Sincerely, Aron Sutton DPT
--- NOTE | 2023-01-15 11:58 | HP.PTDCSUM_ITS ---
It has been my pleasure to treat TRISTEN GOMEZ referred by Dr. Aquiles Hill MD, with the diagnosis of lumbar laminectomy, L3-4 lateral lumbar interbody fusion (XLIF) for a total of 38 visit(s). Discharge Date: 01/15/23 Please see the following information for a summary of their discharge status. Subjective: Pt. reports having a tough weekend with her hand, but is doing better now. She reports having a lot going on with her life. Pt. arrives walking without device with reports that she forgot it. Lumbar spine Pain Intensity (Out of 10): 2 B anterior hips Pain Intensity (Out of 10): 2 groin Pain Intensity (Out of 10): 0 Upper lumbar Pain Intensity (Out of 10): 0 % Improvement: 80 Objective/Function: Pt. is overall frustrated with multiple physicians and with healthcare in general. I talked to her about how much better she was doing when it came to her mobility and back/leg pain. She did agree that these were a lot better and the only real pain with her back is her side on the L occasionally. She did say she has some difficulty with doing step ups in the pool. I talked to the STERILE PROCESSING TECHNOLOGIST working with her in the pool and she reported that she is very independent with her exercises at this point in time. ROM: Pt. has good ROM of lumbar spine, except into extension mod loss. Pt. is overall walking well with a walking stick. She does have increased lateral sway with out use of AD. Pt. reports increased fatigue in her low back and legs without use of AD. At this point in time I would like her to work on her own independently in the pool. She has been given all of the tools and exercises including her written plans to continue on her own at this point in time. She is to trial this and if still having issues to check back in with her physician. Goal 1:: LTG: Pt. to be I with HEP for Core and BLE strengthening. Goal Progress: Goal Met Goal 2:: STG: Pt. to be able to sleep throughout the night without increase in symptoms. Goal Progress: Goal Met Goal 3:: LTG: Pt. to be able to ambulate with rollator community level distances without increase in lumbar or BLE pain. Goal Progress: Goal Met Goal 4:: LTG: Pt. to have increased BLE and core strength increased to 5/5 throughout allowing for increased stability and control with all daily and household activities. Goal Progress: Goal Met Goal 5:: LTG: Pt. to be able to stand up from reclining chair without need of external assistance from . Goal Progress: Goal Met Goal 6:: NEW GOAL: Pt. to ambulate with walking stick with good upright posture for at least 500' allowing for increased ability to walk throughout stores with 0-2/10 pain in lumbar spine and hips. Goal Progress: Goal Met Plan: Pt. to be Dc from PT at this point in time. Discharge Comments: Pt. was seen in aquatic setting after her back surgery. We focused on strength and mobility. She has done very well and is currently I. Pt. will be DC from PT at this point in time. She plans to continue her aquatic exercises on her own. If there are questions or concerns regarding this patient's physical therapy, please feel free to call me at [phone]. Thank you for the referral of this patient. Sincerely, Aron Sutton DPT Balance/Gait/Functional tests - Balance/Special Test Scores Oswestry Low Back Score: 5
== END 2023-01-15 19:00 | disposition home or self-care (01) ==
LOC: PT 09:00
PROVIDERS: PCP Internal Medicine; Referring Provider Internal Medicine; Visit Provider Internal Medicine
DX: M54.50 Low back pain, unspecified (principal)
CPT/HCPCS: 97110; 97113; 97161; 97164; 97530

== ENCOUNTER 2024-11-26 12:33 | Inpatient (IN) | payer MEDICARE, OTHER, SELFPAY ==
[2024-11-26] VITALS (15 sets, daily range): BP systolic 100–160; BP diastolic 60–110; PULSE 60–90; RESP 15–20; TEMP 36.3–36.8; O2SAT 94–100; BMI 40.8; BMI 41.9
[2024-11-26] MEDS: TICAGRELOR 90 MG TABLET 180 MG PO (12:47)
[2024-11-26] MEDS: Morphine 4 MG/ML Syringe IV (12:47)
[2024-11-26] MEDS: Ondansetron 4 MG/2 ML Vial IV (12:47)
[2024-11-26] MEDS: Aspirin 81 MG TAB.CHEW 324 MG PO (12:47)
[2024-11-26] MEDS: Heparin Injection (Vial) 5,000 UNIT/ML VIAL 4000 UNIT IV (12:47)
[2024-11-26 12:59] LABS: Absolute Lymphocyte Count 2.79 X10^3/uL (0.83-4.51); Absolute Neutrophil Count 5.6 X10^3/uL (2.0-7.7); Basophil# 0.04 X10^3/uL; Basophil% 0.4 % (0-1); Eosinophil# 0.29 X10^3/uL; Eosinophils% 3.1 % (0-5); Hematocrit 39.4 % (37-47); Hemoglobin 13.1 g/dL (12.0-15.0); Lymphocyte # 2.79 X10^3/ul (0.83-4.51); Lymphocyte % 30.1 % (19-41); Mean Corp Hgb Conc 33.2 g/dL (32-36); Mean Corpuscular Hgb 31.2 pg (27.0-32.0); Mean Corpuscular Volume 93.8 fL (81-99); Mean Platelet Vol. 8.9 fl (6.2-12.0); Monocyte# 0.55 X10^3/uL; Monocyte% 5.9 % (0-10); NRBC Flagged by Analyzer 0 % (0-5); Neutrophil # 5.55 X10^3/uL (2.7-7.7); Neutrophil % 59.9 % (47-70); Platelet Count 285 K/mm3 (150-450); RBC Distribution Width SD 44.4 fl (35.1-43.9); White Blood Count 9.3 K/mm3 (4.4-11.0)
--- NOTE | 2024-11-26 13:05 | ED.VIS.CHEST ---
HPI History of Present Illness Chief Complaint: Chest Pain Informant: patient Narrative Narrative: 74-year-old female history of diabetes and hypertension and remote history of pulmonary embolism presenting to the emergency room with a chief complaint of chest pain. Patient states she has had a chest pressure for about 20 minutes prior to arrival. She notes nausea and vomiting. She states she sees a sound system installer at [facility] but is unsure of why. She denies being on any blood thinners. She denies any new leg symptoms. [facility] Medical History H/O Alexis thyroiditis Type 2 diabetes mellitus Breast pain, left Hemorrhoid Breast cancer screening Diabetes mellitus type 1.5 Osteoarthritis Morbid obesity with BMI of 40.0-44.9, adult Osteopenia Left upper arm pain Left shoulder pain Intertriginous dermatitis associated with moisture Chronic back pain Easy bruising Walker as ambulation aid Ambulates with cane Pulmonary embolism DVT (deep venous thrombosis) Syncope Gastric reflux Chronic cough History of stress test Hypertension History of anesthesia problem Degenerative arthritis of hip Hypertension Polyneuropathy Spinal stenosis of lumbar region Cataract fragments in right eye following surgery Herniated nucleus pulposus, L3-4 left Cubital tunnel syndrome on left Impaired gait and mobility Chronic neck pain Cervical spinal stenosis Carpal tunnel syndrome, left Cervical radiculopathy at C8 Glaucoma DM neuropathies Liver hemangioma Ulcer Alexis's thyroiditis Rheumatoid arthritis Lupus IBS (irritable bowel syndrome) Gout Cataracts, bilateral History of breast lump History of UTI Anemia Seasonal allergies Home Medications ?Medication ?Instructions ?Recorded ?Last Taken ?Type cholecalciferol (vitamin D3) 10 25 mcg PO DAILY Check with primary 07/06/21 Unknown History mcg (400 unit) capsule doctor gabapentin 600 mg tablet 600 mg PO DAILY Check with primary 07/06/21 Unknown History doctor vitamin B complex (B 1 tab PO DAILY supplement 09/18/21 Unknown History Complex-Vitamin B12 tablet) sitagliptin phosphate 100 mg 100 mg PO DAILY diabetes 03/14/22 Unknown History tablet (Januvia) multivitamin 1 tab PO DAILY supplement 08/03/22 Unknown History cranberry extract 250 mg tablet 1 mg PO DAILY Check with primary 08/20/22 Unknown History doctor circaid wrap #2 ea 09/03/22 Unknown Rx acetaminophen 500 mg tablet 1,000 mg PO Q6 PRN 11/28/22 Unknown History omeprazole 20 mg capsule,delayed 20 mg PO DAILY PRN reflux 11/28/22 Unknown History release Handicap Placard #1 ea 12/10/22 Unknown Rx blood-glucose meter (OneTouch #1 ea 01/18/23 Unknown Rx Ultra2 Meter kit) Electronic blood pressure cuff #1 ea 05/20/23 Unknown Rx losartan 50 mg tablet 50 mg PO DAILY #90 tabs 06/04/23 Unknown Rx diclofenac sodium 1 % topical gel 4 g topical BID PRN Muscle/joint 06/18/23 Unknown Rx pain #100 grams insulin glargine 100 unit/mL (3 25 unit (0.25 mL) subcut DAILY DM 07/23/23 Unknown Rx mL) subcutaneous pen (Lantus #15 mL Solostar U-100 Insulin) blood sugar diagnostic (OneTouch #180 ea 08/05/23 Unknown Rx Ultra Test strips) lancets #180 ea 08/05/23 Unknown Rx pen needle, diabetic 32 gauge x #150 ea 09/12/23 Unknown Rx /32 (BD Ultra-Fine Nan Pen Needle) insulin lispro 100 unit/mL 9 unit (0.09 mL) subcut TID 09/30/23 Unknown Rx subcutaneous cartridge (Humalog diabetes #8.1 mL U-100 Insulin) Allergy/AdvReac Type Severity Reaction Status Date / Time aspirin Allergy Upset Verified 11/26/24 12:37 Stomach capsaicin Allergy Rash Verified 11/26/24 12:37 chlorhexidine Allergy Rash Verified 11/26/24 12:37 codeine Allergy Vomiting Verified 11/26/24 12:37 empagliflozin (From Allergy Other Verified 11/26/24 12:37 Jardiance) erythromycin base Allergy Other Verified 11/26/24 12:37 hydrocodone (From [place]) Allergy Other Verified 11/26/24 12:37 Sulfa (Sulfonamide Allergy Rash Verified 11/26/24 12:37 Antibiotics) tramadol Allergy Other Verified 11/26/24 12:37 trimethoprim Allergy PT UNSURE Verified 11/26/24 12:37 OF REACTION baclofen AdvReac Severe nightmares Verified 11/26/24 12:37 adhesive tape AdvReac Rash Verified 11/26/24 12:37 buprenorphine AdvReac Rash Verified 11/26/24 12:37 carbidopa (From Sinemet) AdvReac Rash Verified 11/26/24 12:37 cat dander AdvReac Other Verified 11/26/24 12:37 cigarette smoke AdvReac Other Verified 11/26/24 12:37 ciprofloxacin AdvReac Rash Verified 11/26/24 12:37 cyclobenzaprine AdvReac Nausea Verified 11/26/24 12:37 Environmental Allergies: AdvReac Other Verified 11/26/24 12:37 Uncoded levodopa (From Sinemet) AdvReac Other Verified 11/26/24 12:37 meperidine AdvReac PT UNSURE Verified 11/26/24 12:37 OF REACTION sulfamethoxazole (From AdvReac Nausea Verified 11/26/24 12:37 Septra) Family History Grandmother Cerebral aneurysm CVA (cerebral vascular accident) Brother CVA (cerebral vascular accident) Cancer Mother CVA (cerebral vascular accident) Father Cancer Other Diabetes Heart disease Hypertension Myocardial infarction Surgical History Hx of laminectomy History of cataract removal with insertion of prosthetic lens H/O: hysterectomy History of ankle surgery Hx of cholecystectomy History of total right knee replacement History of lumbar laminectomy History of lumbar spinal fusion Hx of tonsillectomy Social History household members: spouse housing: house Smoking Status: Never smoker Electronic Cigarette Use: not used second hand exposure: No alcohol intake: never substance use type: does not use what type of physical activity do you participate in: none sharla/confucianist: None seatbelt use: always ROS ROS ED Constitutional Constitutional ED: Denies chills, fever(s) or weight loss Eyes Eyes: Denies change in vision or diplopia ENT ENT ED: Denies ear pain, rhinorrhea or sore throat Cardiovascular Cardiovascular: Reports chest pain; Denies orthopnea, palpitations or racing heartbeat Respiratory/Chest Respiratory/Chest: Reports dyspnea; Denies cough or orthopnea Gastrointestinal Gastrointestinal: Reports nausea and vomiting; Denies abdominal pain or diarrhea Genitourinary Genitourinary ED: Denies dysuria, hematuria or urinary frequency Musculoskeletal Musculoskeletal: Denies arthralgias or myalgias Integumentary Denies abscess or rash Neurologic Neurologic: Denies headache(s) or weakness Psychiatric Psychiatric: Denies anxiety, depression, suicidal ideation or suicidal thoughts Endocrine Endocrinology: Denies polydipsia, polyphagia or polyuria Allergic/Immunologic Allergic/Immunologic ED: Denies mouth swelling, tongue swelling or urticaria EXAM Physical Exam Narrative Exam Narrative: Patient appears acutely ill actively vomiting Const Vital Signs: 11/26/24 12:34 11/26/24 12:37 11/26/24 13:00 Temperature 98 F Temperature Source Oral Pulse Rate 60 Respiratory Rate 20 H Respiratory Effort Short of Breath Blood Pressure 110/60 Blood Pressure Mean 76 Pulse Ox 99 Oxygen Delivery Method Room Air Room Air 11/26/24 13:03 Temperature Temperature Source Pulse Rate Respiratory Rate Respiratory Effort Blood Pressure 160/70 H Blood Pressure Mean Pulse Ox Oxygen Delivery Method Positive well nourished and well developed General Appearance ED: well developed HEENT Reports normocephalic, head/scalp atraumatic and moist mucous membranes Eyes PERRL and EOMs intact bilaterally Neck no lymphadenopathy, supple and no JVD Resp normal respiratory effort and clear to auscultation bilaterally Cardio regular rate, regular rhythm and no murmurs GI normal to inspection, nondistended, normoactive bowel sounds and non-tender Palpation: soft Back/Spine no CVA tenderness and normal ROM Extremity normal to inspection General Extremety ED: Yes edema General Extremity: edema bilateral lower extremity Details: mild Neuro oriented x3 and CN's II-XII intact bilaterally Sensorium / Orientation: alert Motor Exam: strength 5/5 throughout Psych mental status grossly normal Mood & Affect: Negative for depressed or tearful Skin no rashes or lesions noted and no wounds MDM MDM MDM Narrative Medical decision making narrative: Differential diagnosis includes but not limited to STEMI and STEMI aortic dissection pulmonary embolism aortic aneurysm acute kidney injury electrolyte abnormalities. EKG was brought to me and is concerning for STEMI. I was able to find EKG dated April 10, 2022 to compare this to which shows distinct difference. There appears to be ST elevation in V1 V2 with reciprocal inferior changes. STEMI team was called. EKG was taken to the Head Of Digital Advertising & Integration for review by the industrial roofer helper Dr. Arellano. Patient was prepped to go to the Head Of Digital Advertising & Integration. She received aspirin Brilinta heparin morphine and Zofran. Chest x-ray was ordered but the patient was taken to Head Of Digital Advertising & Integration prior to being obtained. White count 9.3 hemoglobin 13.1 platelet count of 285. Initial troponin is 16. Creatinine 0.88. Glucose 180. History & Record Review Discussion w/independent historian: Patient Lab Data Attestation: I reviewed the patient's lab results. Labs: Laboratory Results - last 24 hr 11/26/24 11/26/24 12:42 12:43 WBC 9.3 RBC 4.20 Hgb 13.1 Hct 39.4 MCV 93.8 MCH 31.2 MCHC 33.2 RDW Std Deviation 44.4 H RDW Coeff of Hugo 13.0 Plt Count 285 MPV 8.9 Immature Gran % (Auto) 0.600 Neut % (Auto) 59.9 Lymph % (Auto) 30.1 [place] % (Auto) 5.9 Eos % (Auto) 3.1 Baso % (Auto) 0.4 Absolute Neuts (auto) 5.6 Absolute Lymphs (auto) 2.79 Nucleated RBC % 0 PT 14.1 INR 1.1 APTT 25.8 Sodium 138 Potassium 4.1 Chloride 107 Carbon Dioxide 19.0 L Anion Gap 13 BUN 13 Creatinine 0.88 Estim Creat Clear Calc 72.16 Est GFR (MDRD) Non-Af 69 BUN/Creatinine Ratio 14.3 Glucose 180 H Calcium 9.4 Troponin T High Sens 16 H EKG Initial EKG: Attestation: I personally reviewed and interpreted this EKG as follows: Comments: Sinus bradycardia ventricular rate of [address] elevation V1 V2 with reciprocal inferior changes Prior EKG tracings: available for review Prior: Changed (EKG dated April 10, 2022) Management Discussion w/another healthcare provider: Ball Winder (Dr Arellano) Critical Care Time Critical Care Time: Yes Critical care time (excluding procedures): 30-74 minutes (12 min), Including time spent:, Discussing w/Patient &/or Family/Account Associate, Discussing w/Consultants, Arranging Admission or Transfer and Performing Direct Patient Care at Bedside Discharge Plan Dx/Rx/DC Orders Clinical Impression: Chest pain, ST elevation (STEMI) myocardial infarction Disposition Disposition: Acute Care Hospital [facility] Discharge Date/Time: 11/26/24 13:30
[2024-11-26 13:07] LABS: International Normalized Ratio 1.1; Prothrombin Time (Protime)PT. 14.1 SECONDS (11.7-14.9)
[2024-11-26 13:08] LABS: Partial Thromboplast Time 25.8 Seconds (24.1-36.2)
[2024-11-26 13:33] LABS: Anion Gap 13 (5-15); BUN 13 mg/dL (4-19); BUN/Creat Ratio 14.3 RATIO (10-20); Calcium,Total 9.4 mg/dL (7.6-11.0); Chloride 107 mmol/L (98-108); Creatinine, Serum 0.88 mg/dL (0.70-1.20); EST Glomerular Filtration Rate 69 (>60); Estimated Creatinine Clearance 72.16 ml/min (50-250); Glucose 180 mg/dL (70-99); Potassium 4.1 mmol/L (3.3-5.1); Sodium Level 138 mmol/L (133-145); Troponin T High Sensitivity 16 ng/L (<=14)
--- NOTE | 2024-11-26 13:53 | CM.ED ---
Social work Reason for referral: stemi alert This SW responded to patient's stemi alert. Patient had not been seen by registration yet and it was unknown to this SW that patient's friend, Christoph, was in the waiting room. Patient went to laboratory tester and SW was advised that Christoph was in the laboratory tester waiting room. SW presented to the laboratory tester waiting room, introducing self and role at [facility]. Christoph stated being fine with patient's current condition and Christoph expressed experiencing multiple health problems himself, as well as supporting patient through multiple health problems. 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 Christoph discussed multiple personal situations that did not involve patient; SW actively listened and gently prompted Christoph to return to talking about patient when appropriate to do so. Per Christoph, patient's granddaughter, Aminata Ordonez, is living between [facility]. Also per Christoph, patient's 38 year old daughter has ADHD and has been living in a penitentiary in [place] for the last 20 years; Christoph stated patient's daughter is retarded though Christoph states disagreeing with this. Per Christoph, patient does not have a HCPOA and no documents are on file at [facility]. Much active listening and supportive presence provided to Christoph. Patient will be admitted to acute following laboratory tester and RN CM/SW to follow for discharge planning needs. Abida Cartagena, TREATING AND PUMPING SUPERVISOR, GAS DISTRIBUTION PLANT OPERATOR
--- NOTE | 2024-11-26 14:08 | ECQM.STEMI ---
STEMI STEMI ED Door Time / Other REG STEMI EKG Time (1) ST elevation (STEMI) myocardial infarction: Acute 11/26/24 12:33 Balloon/Aspiration Date-Time Date of Balloon/Aspiration:: 11/26/24 Time of Balloon/Aspiration:: 13:16
[2024-11-26 14:15] LABS: ACT Activated Clotting Time 170 sec (74-137)
[2024-11-26 14:15] LABS: ACT Activated Clotting Time 158 sec (74-137)
[2024-11-26 14:16] LABS: ACT Activated Clotting Time 262 sec (74-137)
--- NOTE | 2024-11-26 14:16 | HP.PCM.HOS_ITS ---
HPI - General General Date of Admission: 11/26/24 Date of Service: 11/26/24 Chief Complaint: chest pain HPI Narrative TRISTEN GOMEZ, is a 74 F with a past medical history as outlined was admitted through the ED on 11/26/2024 with a complaint of chest pain. He had a past medical history of diabetes and hypertension as well as a remote history of PE. The chest pain started about 20 minutes prior to admission and she had associated nausea and vomiting. She denied any history of heart disease and says she sees a shipping and receiving material handler at ; she denies any history of heart issues. Review of systems otherwise negative. EKG done on admission showed ST elevation in V1 and V2 with reciprocal inferior changes. STEMI alert was called and patient was taken emergently to the Data Security Analyst after being given aspirin and Brilinta as well as heparin, morphine and Zofran. CBC done prior to the cath showed WBC of 9.3 with hemoglobin of 13.1 and platelets of 285. Initial troponin was 16. Chemistry showed potassium of 4.1 with sodium of 138, bicarb of 19 and anion gap of 13 with a creatinine of 0.88. Creatinine was 0.8, serum glucose was 180. Chest x-ray showed no acute cardiopulmonary pathology. She had cardiac cath. She was admitted to the ICU afterwards. Patient was seen in the ICU. She had no active complaints. Review of systems otherwise negative. She was hemodynamically stable. [facility] Medical History H/O Alexis thyroiditis Type 2 diabetes mellitus Breast pain, left Hemorrhoid Breast cancer screening Diabetes mellitus type 1.5 Osteoarthritis Morbid obesity with BMI of 40.0-44.9, adult Osteopenia Left upper arm pain Left shoulder pain Intertriginous dermatitis associated with moisture Chronic back pain Easy bruising Walker as ambulation aid Ambulates with cane Pulmonary embolism DVT (deep venous thrombosis) Syncope Gastric reflux Chronic cough History of stress test Hypertension History of anesthesia problem Degenerative arthritis of hip Hypertension Polyneuropathy Spinal stenosis of lumbar region Cataract fragments in right eye following surgery Herniated nucleus pulposus, L3-4 left Cubital tunnel syndrome on left Impaired gait and mobility Chronic neck pain Cervical spinal stenosis Carpal tunnel syndrome, left Cervical radiculopathy at C8 Glaucoma DM neuropathies Liver hemangioma Ulcer Alexis's thyroiditis Rheumatoid arthritis Lupus IBS (irritable bowel syndrome) Gout Cataracts, bilateral History of breast lump History of UTI Anemia Seasonal allergies Home Medications ?Medication ?Instructions ?Recorded ?Last Taken ?Type cholecalciferol (vitamin D3) 10 25 mcg PO DAILY Check with primary 07/06/21 Unknown History mcg (400 unit) capsule doctor gabapentin 600 mg tablet 600 mg PO DAILY Check with p rimary 07/06/21 Unknown History doctor vitamin B complex (B 1 tab PO DAILY supplement Unknown History Complex-Vitamin B12 tablet) sitagliptin phosphate 100 mg 100 mg PO DAILY diabetes 03/14/22 Unknown History tablet (Januvia) multivitamin 1 tab PO DAILY supplement Unknown History cranberry extract 250 mg tablet 1 mg PO DAILY Check wi th primary 08/20/22 Unknown History doctor circaid wrap #2 ea 09/03/22 Unknown Rx acetaminophen 500 mg tablet 1,000 mg PO Q6 PRN 3 Unknown History omeprazole 20 mg capsule,delayed 20 mg PO DAILY PRN re flux 11/28/22 Unknown History release Handicap Placard #1 ea 12/10/22 Unknown Rx blood-glucose meter (OneTouch #1 ea 01/18/23 Unknown R x Ultra2 Meter kit) Electronic blood pressure cuff #1 ea 05/20/23 Unknown Rx losartan 50 mg tablet 50 mg PO DAILY #90 tabs 05/24 11/15 Unknown Rx diclofenac sodium 1 % topical gel 4 g topical BID PRN Muscle/joint 06/18/23 Unknown Rx pain #100 grams insulin glargine 100 unit/mL (3 25 unit (0.25 mL) subc ut DAILY DM 07/23/23 Unknown Rx mL) subcutaneous pen (Lantus #15 mL Solostar U-100 Insulin) blood sugar diagnostic (OneTouch #180 ea 08/05/23 Unkn own Rx Ultra Test strips) lancets #180 ea 08/05/23 Unknown Rx pen needle, diabetic 32 gauge x #150 ea 09/12/23 Unkno wn Rx (BD Ultra-Fine Nan Pen Needle) insulin lispro 100 unit/mL 9 unit (0.09 mL) subcut TID 09/30/23 Unknown Rx subcutaneous cartridge (Humalog diabetes #8.1 mL U-100 Insulin) Allergy/AdvReac Type Severity Reaction Status Date / Time aspirin Allergy Upset Verified 11/26/24 12:37 Stomach capsaicin Allergy Rash Verified 11/26/24 12:37 chlorhexidine Allergy Rash Verified 11/26/24 12:37 codeine Allergy Vomiting Verified 11/26/24 12:37 empagliflozin (From Allergy Other Verified 11/26/24 12:37 Jardiance) erythromycin base Allergy Other Verified 11/26/24 12:37 hydrocodone (From [place]) Allergy Other Verified 11/26/24 12:37 Sulfa (Sulfonamide Allergy Rash Verified 11/26/24 12:37 Antibiotics) tramadol Allergy Other Verified 11/26/24 12:37 trimethoprim Allergy PT UNSURE Verified 11/26/24 12:37 OF REACTION baclofen AdvReac Severe nightmares Verified 11/26/24 12:37 adhesive tape AdvReac Rash Verified 11/26/24 12:37 buprenorphine AdvReac Rash Verified 11/26/24 12:37 carbidopa (From Sinemet) AdvReac Rash Verified 11/26/24 12:37 cat dander AdvReac Other Verified 11/26/24 12:37 cigarette smoke AdvReac Other Verified 11/26/24 12:37 ciprofloxacin AdvReac Rash Verified 11/26/24 12:37 cyclobenzaprine AdvReac Nausea Verified 11/26/24 12:37 Environmental Allergies: AdvReac Other Verified 11/26/24 12:37 Uncoded levodopa (From Sinemet) AdvReac Other Verified 11/26/24 12:37 meperidine AdvReac PT UNSURE Verified 11/26/24 12:37 OF REACTION sulfamethoxazole (From AdvReac Nausea Verified 11/26/24 12:37 Septra) Family History Grandmother Cerebral aneurysm CVA (cerebral vascular accident) Brother CVA (cerebral vascular accident) Cancer Mother CVA (cerebral vascular accident) Father Cancer Other Diabetes Heart disease Hypertension Myocardial infarction Surgical History Hx of laminectomy History of cataract removal with insertion of prosthetic lens H/O: hysterectomy History of ankle surgery Hx of cholecystectomy History of total right knee replacement History of lumbar laminectomy History of lumbar spinal fusion Hx of tonsillectomy Social History household members: spouse housing: house Smoking Status: Never smoker Electronic Cigarette Use: not used second hand exposure: No alcohol intake: never substance use type: does not use what type of physical activity do you participate in: none sharla/druze: None seatbelt use: always ROS Review of Systems ROS Unobtainable: Denies due to encephalopathy Constitutional Constitutional: Denies anorexia, change in weight, chills, fatigue, fever(s), malaise or weakness Eyes Eyes: Denies change in vision ENT HEENT: Denies dysphagia, headache(s) or sore throat Cardiovascular Cardiovascular: Reports chest pain; Denies dyspnea on exertion, edema, lightheadedness, orthopnea, palpitations, paroxysmal nocturnal dyspnea, rapid heart rate or syncope Respiratory/Chest Respiratory/Chest: Denies cough, dyspnea, productive cough, shortness of breath at rest or shortness of breath with exertion Gastrointestinal Gastrointestinal: Denies abdominal pain, diarrhea, hematochezia, nausea or vomiting Genitourinary Genitourinary: Denies burning urination or dysuria Neurologic Neurologic: Denies confusion, dizziness, focal weakness or headache(s) Psychiatric Psychiatric: Denies anxiety Vital Signs Vital Signs Vital Signs: 11/26/24 12:34 11/26/24 12:37 11/26/24 13:00 Temperature 98 F Temperature Source Oral Pulse Rate 60 Respiratory Rate 20 H Respiratory Effort Short of Breath Blood Pressure 110/60 Blood Pressure Mean 76 Pulse Ox 99 Oxygen Delivery Method Room Air Room Air 11/26/24 13:03 Temperature Temperature Source Pulse Rate Respiratory Rate Respiratory Effort Blood Pressure 160/70 H Blood Pressure Mean Pulse Ox Oxygen Delivery Method Weight Weight: 253 lb 1.451 oz Body Mass Index (BMI) 40.8 Physical Exam Const alert, oriented x3 and no apparent distress General Appearance: cooperative HEENT normocephalic, head/scalp atraumatic, hearing grossly normal bilaterally and moist oral mucous membranes Mouth: oral and palatal mucosa normal Eyes PERRL, EOMs intact bilaterally and conjunctivae normal Neck no lymphadenopathy and supple Resp normal respiratory effort, no retractions, no use of accessory muscles and clear to auscultation bilaterally Cardio regular rate, regular rhythm, S1 normal heart sound, S2 normal heart sound and no murmurs GI normal to inspection, nondistended, normoactive bowel sounds, soft to palpation, non-tender and non-distended Extremity normal to inspection, full ROM and no clubbing, cyanosis or edema Neuro oriented x3, CN's II-XII intact bilaterally, moves all extremities and no focal motor deficits Sensorium / Orientation: awake and alert Motor Exam: strength 5/5 throughout Psych affect normal Results Lab / Micro Data 11/26/24 12:43 11/26/24 12:43 Labs: Laboratory Results - last 24 hr 11/26/24 12:42: PT 14.1, INR 1.1, APTT 25.8 11/26/24 12:43: WBC 9.3, RBC 4.20, Hgb 13.1, Hct 39.4, MCV 93.8, MCH 31.2, MCHC 33.2, RDW Std Deviation 44.4 H, RDW Coeff of Hugo 13.0, Plt Count 285, MPV 8.9, Immature Gran % (Auto) 0.600, Neut % (Auto) 59.9, Lymph % (Auto) 30.1, [place] % (Auto) 5.9, Eos % (Auto) 3.1, Baso % (Auto) 0.4, Absolute Neuts (auto) 5.6, Absolute Lymphs (auto) 2.79, Nucleated RBC % 0, Sodium 138, Potassium 4.1, Chloride 107, Carbon Dioxide 19.0 L, Anion Gap 13, BUN 13, Creatinine 0.88, Estim Creat Clear Calc 72.16, Est GFR (MDRD) Non-Af 69, BUN/Creatinine Ratio 14.3, Glucose 180 H, Calcium 9.4, Troponin T High Sens 16 H 11/26/24 13:06: Activated Clotting Time 158 H 11/26/24 13:46: Activated Clotting Time 170 H Assessment & Plan Assessment/Plan (1) ST elevation (STEMI) myocardial infarction: PLAN: Plan #STEMI s/p cardiac cath * Patient admitted with a complaint of chest pain which lasted about 20 minutes prior to admission. She had ST elevation in leads V1 and V2 on admission was sent emergently to the Data Security Analyst. * Had cardiac cath which showed 95% proximal LAD occlusion with thrombus. She had successful PTCA with drug-eluting stent insertion to the proximal LAD. * Place patient on aspirin and Brilinta as well as high intensity statin. To be on aspirin indefinitely and Brilinta for at least 6 months per cardiology. * For 2D echo tomorrow. Will need cardiac rehab. * Type 2 diabetes mellitus with neuropathy: * On Lantus 25 units daily as well as Januvia. Was on gabapentin. * insulin sliding scale. Accuchecks ACHS. * Follows with endocrinology. #Hypertension: On losartan. Will likely benefit from addition of beta-carlos in light of STEMI #GERD: on PPI. #History of Alexis thyroiditis * has a history of positive thyroid antibodies with normal TSH * follow with endocrinology on outpatient basis. * #DVT prophylaxis: SCDs CODE STATUS: Full code * Patient counseled extensively about different types of CODE STATUS including full code, DNR CCA and DNR CCA. * Patient elects to be full code. * Total [id number] time 16 minutes. Charges/Coding Visit Charges Inpatient E&M: 36922 Init Hosp L3 Procedures Hospitalists Procedures: 43554 Advncd Care Plan 30 Min
--- NOTE | 2024-11-26 14:26 | CL.I_ITS ---
Patient Name: TRISTEN GOMEZ Study Date: 11/26/2024 Performing: Saurav Arellano MD Ht: 66 inches 167.64 cm : 1950 Wt: 253.09 lbs 114.8 kg Age: 74 Gender: female BSA: 2.21 PROCEDURE(S) PERFORMED DC02-([id number])C/COR IC16-([id number])AMI, SAGE OR PTCA, ARTERY/GRAFT, SINGLE VESSEL CLINICAL PROFILE AND CO-MORBIDITIES Indications: ACS <= 24 hrs Heart Failure: None Stress/Imaging Stress/Image Study Performed: No CAD Presentations: STEMI. Symptom onset Date/Time: 11/26/2024 11:50:00 Time Estimated CONCLUSIONS 95% Prox LAD with thrombus Successful PTCA/SAGE Prox LAD using Rob Antrim 3.0x15 mm RECOMMENDATIONS ASA Indefinitley P2Y12 inhibitors for atleast 6 months DESCRIPTION OF PROCEDURE The patient arrived to the procedure lab. The risks and benefits of the procedure as well as a full description of our services here and lack of surgical backup were fully explained to the patient and/or their significant other prior to the catheterization. The Timeout was completed, verifying the correct patient and procedure. The patient's procedural site was prepped and draped in the usual fashion. Local anesthetic was given subcutaneously to right radial region with Lidocaine 2%. Using a modified Seldinger technique, arterial access was obtained via the right radial artery, a 6Fr sheath was inserted.. Right Coronary Artery selective angiography was then performed in multiple views using a 5 Fr. JR 4 catheter. Right Coronary Artery selective angiography was then performed in multiple views using a 5 Fr. 3DRC (Fermín) catheter XB 3.0 Guide catheter was inserted and engaged into the LCA. runthrough Guide wire was advanced to the LAD. Emerge 2.50x12 Balloon catheter was inserted. PTCA balloon inflated at 6 atms for 11 secs. Angiogram performed post balloon dilatation. Antrim Rob 3.0x15 Drug Eluting stent was inserted. Angiogram performed post stent deployment. NC Emerge 3.00x12 Balloon catheter was inserted. Angiogram performed post balloon dilatation. The arterial sheath was pulled and a TR Band was applied for hemostasis w/ 13ml air CORONARY ANGIOGRAPHY DOMINANCE: Right Dominant LEFT HEART ASSESSMENT Left Ventricular Ejection Fraction: Not assessed LEFT MAIN: Angiographically normal LEFT ANTERIOR DESCENDING ARTERY: LAD: Thrombus 95% Proximal lesion in LAD CIRCUMFLEX ARTERY: Angiographically normal RIGHT CORONARY ARTERY: Angiographically normal INTERVENTION INFORMATION LESION SITE: LAD (Proximal) Lesion Complexity: High/C, thrombus present: Yes, lesion length: 13 mm Pre Stenosis: 95 % Pre intervention TALITA flow: 3 PROCEDURE: Drug Eluting Stent with pre and post dilatation Post Stenosis: 0 % Post intervention TALITA flow: 3 Lesion Devices: Cordis 6 Fr XB3.0 100cm Guide Catheter Terumo .014 180cm Runthrough Extra Floppy straight Adrien Sci EMERGE MR 2.50x12 BALLOON Medtronic 3.0 x 15 ROB FRONTIER SAGE Adrien Sci NC EMERGE MR 3.00x12 BALLOON COMPLICATIONS No Complications PROCEDURE MEDICATIONS Fentanyl 50 mcg IV Versed 2 mg IV Oxygen: 2 L/min via nasal cannula Heparin 4000 unit(s) IV 11/26/2024 13:06:30 Heparin 7000 unit(s) IV 11/26/2024 13:49:49 Nitro 200 mcg IC 11/26/2024 13:18:21 Nitro 200 mcg IA 11/26/2024 13:47:55 Verapamil 2.5mg, Ntg 200mcgs, given IA 11/26/2024 13:03:50 SUMMARY OF HEMODYNAMIC DATA Time AIR REST ECG 12:58:16 AO 140/78 (99) SA 13:07:07 AO 156/78 (112) 13:37:16 AO 99/66 (81) 13:47:28 14:08:05 Signed By Saurav Arellano MD On 11/26/2024 14:25:20 Saurav Arellano MD
--- NOTE | 2024-11-26 14:26 | ECHOCS_ITS ---
Reason For Study Reason For Study: STEMI Procedure This was a limited 2D transthoracic echocardiogram. The study was technically difficult. Contrast injection was performed. Exam performed portable in ICU/CCU. Left Ventricle Normal size and thickness. Severe apical hypokinesis. Anterior septal hypokinesis. Overall LVEF estimated at 50%. Stage I diastolic dysfunction. Right Ventricle Normal right ventricle. Atria The left and right atria are normal. Mitral Valve Trivial mitral valve insufficiency. Tricuspid Valve Normal tricuspid valve. Aortic Valve Trisinus/trileaflet aortic valve. Trivial aortic valve insufficiency. Pulmonic Valve The pulmonic valve is not well visualized. Great Vessels The aortic root is not well visualized. Pericardium/Pleural No pericardial effusion. Medication Diluted definity 2ml given slow IV push to enhance endocardial definition. MMode/2D Measurements & Calculations LVIDd: 4.3 cm IVSd: 0.85 cm LVOT diam: 2.0 cm LVIDs: 3.0 cm LVPWd: 0.99 cm RVDd: 3.0 cm FS: 30.2 % LVOT area: 3.1 cm2 LAV(MOD-bp): 38.8 ml LVAd ap4: 30.5 cm2 SV(MOD-sp4): 46.5 ml LAV(MOD-bp) Indexed: 18.8 ml/m2 LVLd ap4: 8.2 cm SI(MOD-sp4): 22.5 ml/m2 LAV(MOD-sp2): 30.1 ml EDV(MOD-sp4): 91.7 ml LAV(MOD-sp4): 50.3 ml EDV(sp4-el): 96.2 ml LVAs ap4: 20.3 cm2 LVLs ap4: 7.4 cm ESV(MOD-sp4): 45.3 ml ESV(sp4-el): 46.9 ml EF(MOD-sp4): 50.7 % EF(sp4-el): 51.3 % SV(4-): 49.4 ml LA A4 area: 18.0 cm2 RA A4 area: 12.7 cm2 Time Measurements MV dec time: 0.17 sec Doppler Measurements & Calculations MV E max tu: 113.7 cm/sec Lat Peak E' Tu: 8.2 cm/sec Med Peak E' Tu: 5.8 cm/sec MV A max tu: 74.2 cm/sec E/E' lat: 13.9 E/E' med: 19.6 MV E/A: 1.5 MV V2 max: 104.3 cm/sec Ao V2 max: 130.3 cm/sec MV max P.4 mmHg MV dec slope: 680.0 cm/sec2 Ao max P.8 mmHg MV V2 mean: 63.8 cm/sec Ao V2 mean: 96.5 cm/sec MV mean P.8 mmHg Ao mean P.2 mmHg MV V2 VTI: 31.0 cm Ao V2 VTI: 36.2 cm AV (velocity ratio): 0.76 MVA(VTI): 2.7 cm2 BLUE(I,D): 2.3 cm2 BLUE(V,D): 2.7 cm2 LV V1 max: 114.4 cm/sec SV(LVOT): 84.9 ml LV V1 max P.3 mmHg LV V1 mean P.9 mmHg LV V1 mean: 78.9 cm/sec LV V1 VTI: 27.7 cm ECHO/Echo Complete W/ Contrast Interpretation Summary Severe apical hypokinesis to akinesis. Anterior septal hypokinesis. Overall LVE F estimated at 50%. Stage I diastolic dysfunction. The study was technically difficult. Ordering Physician: Saurav Arellano Referring Physician: Saurav Arellano Performed By: Tabitha Espitia RCS
--- NOTE | 2024-11-26 14:35 | CON.PCM.CA_ITS ---
Assessment & Plan Assessment/Plan (1) ST elevation (STEMI) myocardial infarction involving left anterior descending coronary artery: PLAN: After taking informed consent, patient was taken emergently to the cardiac catheterization lab. Coronary angiography revealed 95% proximal LAD with thrombus burden. Successful percutaneous intervention was done with balloon angioplasty and placement of a 3.0 x 15 mm drug-eluting stent. Excellent results were noted. Continue aspirin lifelong. P2 Y12 treatment for at least 6 months. Risk factor modification. Beta-blockers. Angiotensin receptor blockers. Statins. Check echocardiogram. (2) Coronary artery disease: PLAN: See #1 above. (3) Hypertension: QUALIFIERS: Hypertension type: unspecified Qualified Code(s): I10 - Essential (primary) hypertension PLAN: Beta-blockers and ARB's. HPI Consult Data Date of Consult: 11/26/24 HPI Narrative Reason for Consultation: STEMI HPI Narrative: This patient has past medical history significant for diabetes mellitus and hypertension. She presented to the emergency room with complaints of anterior chest discomfort that started about 40 minutes prior to presentation. No radiation to the arm neck or jaw. Positive associated shortness of breath. No diaphoresis. In the emergency room, an ECG was done. It showed changes consistent with acute anterior myocardial infarction. Subsequently a STEMI alert was called. [facility], [facility] Medical History H/O Alexis thyroiditis Type 2 diabetes mellitus Breast pain, left Hemorrhoid Breast cancer screening Diabetes mellitus type 1.5 Osteoarthritis Morbid obesity with BMI of 40.0-44.9, adult Osteopenia Left upper arm pain Left shoulder pain Intertriginous dermatitis associated with moisture Chronic back pain Easy bruising Walker as ambulation aid Ambulates with cane Pulmonary embolism DVT (deep venous thrombosis) Syncope Gastric reflux Chronic cough History of stress test Hypertension History of anesthesia problem Degenerative arthritis of hip Hypertension Polyneuropathy Spinal stenosis of lumbar region Cataract fragments in right eye following surgery Herniated nucleus pulposus, L3-4 left Cubital tunnel syndrome on left Impaired gait and mobility Chronic neck pain Cervical spinal stenosis Carpal tunnel syndrome, left Cervical radiculopathy at C8 Glaucoma DM neuropathies Liver hemangioma Ulcer Alexis's thyroiditis Rheumatoid arthritis Lupus IBS (irritable bowel syndrome) Gout Cataracts, bilateral History of breast lump History of UTI Anemia Seasonal allergies Home Medications ?Medication ?Instructions ?Recorded ?Last Taken ?Type cholecalciferol (vitamin D3) 10 25 mcg PO DAILY Check with primary 07/06/21 Unknown History mcg (400 unit) capsule doctor gabapentin 600 mg tablet 600 mg PO DAILY Check with p rimary 07/06/21 Unknown History doctor vitamin B complex (B 1 tab PO DAILY supplement Unknown History Complex-Vitamin B12 tablet) sitagliptin phosphate 100 mg 100 mg PO DAILY diabetes 03/14/22 Unknown History tablet (Januvia) multivitamin 1 tab PO DAILY supplement Unknown History cranberry extract 250 mg tablet 1 mg PO DAILY Check wi th primary 08/20/22 Unknown History doctor circaid wrap #2 ea 09/03/22 Unknown Rx acetaminophen 500 mg tablet 1,000 mg PO Q6 PRN 3 Unknown History omeprazole 20 mg capsule,delayed 20 mg PO DAILY PRN re flux 11/28/22 Unknown History release Handicap Placard #1 ea 12/10/22 Unknown Rx blood-glucose meter (OneTouch #1 ea 01/18/23 Unknown R x Ultra2 Meter kit) Electronic blood pressure cuff #1 ea 05/20/23 Unknown Rx losartan 50 mg tablet 50 mg PO DAILY #90 tabs 05/24 11/15 Unknown Rx diclofenac sodium 1 % topical gel 4 g topical BID PRN Muscle/joint 06/18/23 Unknown Rx pain #100 grams insulin glargine 100 unit/mL (3 25 unit (0.25 mL) subc ut DAILY DM 07/23/23 Unknown Rx mL) subcutaneous pen (Lantus #15 mL Solostar U-100 Insulin) blood sugar diagnostic (OneTouch #180 ea 08/05/23 Unkn own Rx Ultra Test strips) lancets #180 ea 08/05/23 Unknown Rx pen needle, diabetic 32 gauge x #150 ea 09/12/23 Unkno wn Rx (BD Ultra-Fine Nan Pen Needle) insulin lispro 100 unit/mL 9 unit (0.09 mL) subcut TID 09/30/23 Unknown Rx subcutaneous cartridge (Humalog diabetes #8.1 mL U-100 Insulin) Allergy/AdvReac Type Severity Reaction Status Date / Time aspirin Allergy Upset Verified 11/26/24 12:37 Stomach capsaicin Allergy Rash Verified 11/26/24 12:37 chlorhexidine Allergy Rash Verified 11/26/24 12:37 codeine Allergy Vomiting Verified 11/26/24 12:37 empagliflozin (From Allergy Other Verified 11/26/24 12:37 Jardiance) erythromycin base Allergy Other Verified 11/26/24 12:37 hydrocodone (From [place]) Allergy Other Verified 11/26/24 12:37 Sulfa (Sulfonamide Allergy Rash Verified 11/26/24 12:37 Antibiotics) tramadol Allergy Other Verified 11/26/24 12:37 trimethoprim Allergy PT UNSURE Verified 11/26/24 12:37 OF REACTION baclofen AdvReac Severe nightmares Verified 11/26/24 12:37 adhesive tape AdvReac Rash Verified 11/26/24 12:37 buprenorphine AdvReac Rash Verified 11/26/24 12:37 carbidopa (From Sinemet) AdvReac Rash Verified 11/26/24 12:37 cat dander AdvReac Other Verified 11/26/24 12:37 cigarette smoke AdvReac Other Verified 11/26/24 12:37 ciprofloxacin AdvReac Rash Verified 11/26/24 12:37 cyclobenzaprine AdvReac Nausea Verified 11/26/24 12:37 Environmental Allergies: AdvReac Other Verified 11/26/24 12:37 Uncoded levodopa (From Sinemet) AdvReac Other Verified 11/26/24 12:37 meperidine AdvReac PT UNSURE Verified 11/26/24 12:37 OF REACTION sulfamethoxazole (From AdvReac Nausea Verified 11/26/24 12:37 Septra) Family History Grandmother Cerebral aneurysm CVA (cerebral vascular accident) Brother CVA (cerebral vascular accident) Cancer Mother CVA (cerebral vascular accident) Father Cancer Other Diabetes Heart disease Hypertension Myocardial infarction Surgical History Hx of laminectomy History of cataract removal with insertion of prosthetic lens H/O: hysterectomy History of ankle surgery Hx of cholecystectomy History of total right knee replacement History of lumbar laminectomy History of lumbar spinal fusion Hx of tonsillectomy Social History household members: spouse housing: house Smoking Status: Never smoker Electronic Cigarette Use: not used second hand exposure: No alcohol intake: never substance use type: does not use what type of physical activity do you participate in: none sharla/confucianism: None seatbelt use: always Physical Exam Narrative Appeared mildly anxious. Heart sounds 1 and 2 normal. Chest clear to auscultation bilaterally. Abdomen soft. Alert oriented x 3. Risk Stratification Risk Stratification Applicable: No Objective Data Vital Signs: Vital Signs Temp Pulse Resp BP Pulse Ox O2 Del Method 98 F 60 20 H 160/70 H 99 Room Air 11/26/24 12:34 11/26/24 12:34 11/26/24 12:34 11/26/24 13:03 11/26/24 12:34 11/26/24 13:00 Oxygen Delivery Method Room Air Weight: 253 lb 1.451 oz Body Mass Index (BMI) 40.8 Lab / Micro Data Attestation: I reviewed the patient's lab results. 11/26/24 12:43 11/26/24 12:43 Labs: Laboratory Results - last 24 hr 11/26/24 12:42: PT 14.1, INR 1.1, APTT 25.8 11/26/24 12:43: WBC 9.3, RBC 4.20, Hgb 13.1, Hct 39.4, MCV 93.8, MCH 31.2, MCHC 33.2, RDW Std Deviation 44.4 H, RDW Coeff of Hugo 13.0, Plt Count 285, MPV 8.9, Immature Gran % (Auto) 0.600, Neut % (Auto) 59.9, Lymph % (Auto) 30.1, [place] % (Auto) 5.9, Eos % (Auto) 3.1, Baso % (Auto) 0.4, Absolute Neuts (auto) 5.6, Absolute Lymphs (auto) 2.79, Nucleated RBC % 0, Sodium 138, Potassium 4.1, Chloride 107, Carbon Dioxide 19.0 L, Anion Gap 13, BUN 13, Creatinine 0.88, Estim Creat Clear Calc 72.16, Est GFR (MDRD) Non-Af 69, BUN/Creatinine Ratio 14.3, Glucose 180 H, Calcium 9.4, Troponin T High Sens 16 H 11/26/24 13:06: Activated Clotting Time 158 H 11/26/24 13:46: Activated Clotting Time 170 H 11/26/24 13:57: Activated Clotting Time 262 H Rhythm Strip Rhythm Strip: Sinus Rhythm Cardiology Labs/Tests 11/26/24 12:42: PT 14.1, INR 1.1, APTT 25.8 11/26/24 12:43: WBC 9.3, RBC 4.20, Hgb 13.1, Hct 39.4, MCV 93.8, MCH 31.2, MCHC 33.2, Plt Count 285, MPV 8.9, Immature Gran % (Auto) 0.600, Neut % (Auto) 59.9, Lymph % (Auto) 30.1, [place] % (Auto) 5.9, Eos % (Auto) 3.1, Baso % (Auto) 0.4, Absolute Neuts (auto) 5.6, Nucleated RBC % 0, Sodium 138, Potassium 4.1, Chloride 107, Carbon Dioxide 19.0 L, Anion Gap 13, BUN 13, Creatinine 0.88, Est GFR (MDRD) Non-Af 69, BUN/Creatinine Ratio 14.3, Glucose 180 H, Calcium 9.4 Rhythm: EKG: ECG done in the emergency room showed sinus bradycardia. ST elevations consistent with acute anterior myocardial infarction noted. Reciprocal changes in inferior leads. ECHO: Stress Test: Cardiac Cath: PCI: CT Surgery: Holter monitor: EPS: PPM: CXR: Chest CT Scan:
--- NOTE | 2024-11-26 14:57 | CHAPLAIN ---
Type of Pastoral Visit ___ Initial Visit ___ Follow-up Visit ___ On-call Visit ___ General Patient Visit ___ Spiritual Assessment ___ Family Conference ___ Bereavement _x__ Rapid Response ___ Code Blue ___ Other (describe below) Pastoral Care Referral From ___ Patient ___ Family ___ Nurse ___ Physician ___ Social Welfare Administrator ___ Field Sales Executive _x__ Other (describe below) Sacrament/Intervention _x__ Active listening ___ Anointing ___ Amish ___ Bereavement ___ Communion ___ Mickie exploration ___ ___ Life review ___ Prayer ___ Reconciliation ___ Sacrament of Sick _x__ Supportive presence ___ Wedding ___ Other (describe below) Pastoral Comments stemi alert was called for this patient and she was taken to the dairy and food laboratory assistant; escorted her SO to the waiting area of cardiac cath lab radiology technologist; SO is very talkative and shares stories; offer of support to SO is answered with I know all about the hospital, and I've had stents; offered future support as desired
[2024-11-26] MEDS: 0.9% Normal Saline (1000mL) 1,000 ML 100 ML IV (15:00)
--- NOTE | 2024-11-26 15:10 | CRPHASE1_ITS ---
Patient Communication Patient Information Former Patient:: Phase I PHII Cardiac Rehab Discussed with Patient:: Yes Guide to Cardiac Rehab Given to Patient:: Yes Cardiac Rehab Facility Choice List Given to Patient:: Yes Communication to Cardiac Rehab Choice Program [facility] PHII:: Communication Given to CR Skate Shop Attendant:: Saurav Arellano Sessions:: 36 sessions - 2 days/wk, 18 weeks Medical/Surgical History Medical History [place]:: Yes Angina:: Yes CAD:: Yes Congestive Heart Failure: Cardiomyopathy:: No Valve Disease/Replacement:: No Pulmonary:: No COPD:: No Asthma:: No CLEMENTE:: No Diabetes:: Yes Diabetes Type I:: No Diabetes Type II:: Yes Hypertension:: Yes Dyslipidemia:: No Arrhythmias:: No EPS:: No CVA/TIA: CEA:: No PE:: No DVT:: No PVD:: No PAD:: No Arthritis:: No GI:: No GERD:: No Cancer:: No Renal:: No Thyroid:: No Depression:: No Anxiety:: No Surgical History CABG: No PTCA:: Yes ICD:: No Pacemaker:: No Orthopedic:: No Cardiac Rehabilitation Info Program Information Cardiac Rehabilitation Program Information: Cardiac Rehab The cardiac rehab team at [facility] consists of highly skilled exercise physiologists, nurses, respiratory therapists and physicians working together with you. Our purpose is to help you have a full recovery and achieve the goals you set for yourself. Over the years many of our patients have returned to activities they assumed they would never do again! We can help restore your confidence and motivation to make lifestyle changes that can have a significant impact on your health and quality of life! We can help answer questions and concerns you may have about exercise, lifestyle, medications, diet, stress and anxiety which are common following a ho spitalization. WE monitor ECG and vital signs during exercise and discuss your progress with you and report to your physician(s). Cardiac Rehab is proven to help reduce readmissions, improve functional capacity and lower recurrence of problems with your heart. Our Cardiac Rehab program is Certified by the [place] [employer] Pulmonary [employer] (AACVPR) and Acc redited by the [employer] through our [facility]. You can contact us at . We invite you to call us with your questions or to get started in our program. If you have other questions or concerns be sure to ask your physician/provider during your follow-up visit. WE look forward to seeing you!
--- NOTE | 2024-11-26 15:12 | CRPH1.INSTRU ---
General Education Discussed with Patient CAD and cardiac anatomy and function:: Patient communicates acknowledgment Explanation of diagnoses and procedures:: Patient communicates acknowledgment Sign/Symptoms of CA:: Patient communicates acknowledgment Antiplatelet therapy: Patient communicates acknowledgment Proper use of NTG-SL: Patient communicates acknowledgment Emergency procedures and activation of EMS: Patient communicates acknowledgment Compliance of all prescribed medications: Patient communicates acknowledgment Smoking Risk Factors Patient Nicotine/Smoking Risk Factors Are:: Never smoked Dyslipidemia Recommendations Recommendations Include:: Lipid profile not available Response Code Dyslipidemia Response Code:: Patient communicates acknowledgment Overweight/Obesity Risk Factors Patient Overweight/Obesity Risk Factors Are:: Obesity - > or = 30 Recommendations Recommendations Include:: Exercise 5-7 times/week Response Code Overweight/Obesity:: Patient communicates acknowledgment Hypertension Recommendations Recommendations Include:: Maintain BP <130/85 Response Code Hypertension:: Patient communicates acknowledgment Heart Disease Risk Factors Patient Heart Disease Risk Factors Are:: Previous cardiac event Response Code Heart Disease Response Code:: Patient communicates acknowledgment Diabetes Risk Factors Patient Diabetes Risk Factors Are:: Elevated blood sugars Recommendations Recommendations Include:: Maintain fasting blood sugars 70-110 md/dL and Decrease/maintain body weight Response Code Diabetes:: Patient communicates acknowledgment Metabolic Syndrome Risk Factors Patient Metabolic Syndrome Risk Factors Are [3 of 5]:: Waist circumference > 35 [female] or 40 [male] and Hypertension Recommendations Recommendations Include:: Patient is diabetic Response Code Metabolic Syndrome Response Code:: Patient communicates acknowledgment Sedentary Risk Factors Patient Sedentary Risk Factors Are:: Lack of regular exercise Recommendations Recommendations Include:: Benefits of regular exercise Response Code Sedentary Response Code:: Patient communicates acknowledgment Stress Recommendations Recommendations Include:: Identification of stressors, and assessment of coping skills and Stress management techniques Response Code Stress Response Code:: Patient communicates acknowledgment
[2024-11-26 17:07] LABS: Bedside Glucose 152 mg/dL (74-106)
[2024-11-26] MEDS: Atorvastatin Calcium 80 MG Tablet PO (20:10)
[2024-11-26] MEDS: Carvedilol 3.125 MG TABLET PO (20:10)
[2024-11-26] MEDS: Clopidogrel Bisulfate 300 MG Tablet PO (20:11)
[2024-11-26 23:10] LABS: Magnesium 1.7 mg/dL (1.5-2.2)
[2024-11-27] VITALS (12 sets, daily range): BP systolic 111–151; BP diastolic 50–102; PULSE 81–92; RESP 14–25; TEMP 36.2–36.8; O2SAT 95–99; BMI 41.1
[2024-11-27] MEDS: Acetaminophen 325 MG Tablet 650 MG PO ×2 (02:27→17:33)
[2024-11-27 03:46] LABS: Absolute Lymphocyte Count 2.02 X10^3/uL (0.83-4.51); Absolute Neutrophil Count 6.8 X10^3/uL (2.0-7.7); Basophil# 0.03 X10^3/uL; Basophil% 0.3 % (0-1); Eosinophil# 0.21 X10^3/uL; Eosinophils% 2.2 % (0-5); Hematocrit 33.9 % (37-47); Hemoglobin 11.4 g/dL (12.0-15.0); Lymphocyte # 2.02 X10^3/ul (0.83-4.51); Lymphocyte % 20.7 % (19-41); Mean Corp Hgb Conc 33.6 g/dL (32-36); Mean Corpuscular Hgb 30.9 pg (27.0-32.0); Mean Corpuscular Volume 91.9 fL (81-99); Mean Platelet Vol. 8.8 fl (6.2-12.0); Monocyte# 0.63 X10^3/uL; Monocyte% 6.5 % (0-10); NRBC Flagged by Analyzer 0 % (0-5); Neutrophil # 6.83 X10^3/uL (2.7-7.7); Neutrophil % 69.9 % (47-70); Platelet Count 258 K/mm3 (150-450); RBC Distribution Width CV 13.1 % (11.6-14.6); RBC Distribution Width SD 44.5 fl (35.1-43.9); Red Blood Count 3.69 M/mm3 (4.2-5.4); White Blood Count 9.8 K/mm3 (4.4-11.0)
[2024-11-27 05:52] LABS: Cholesterol 128 mg/dL (<=200); High Density Lipoprotein 42 mg/dL; Low Density Lipoprotein Calc. 59 mg/dL; Triglycerides 134 mg/dL; Very Low Density Lipoprotein 27 mg/dL (5-40); cholesterol:hdl ratio screen 3.03
[2024-11-27 06:23] LABS: Hemoglobin A1c 6.8 % (<=5.6)
[2024-11-27 06:50] LABS: AST(SGOT) 25 U/L (<=31); Alanine Aminotransfer ALT/SGPT 24 U/L (<=34); Alkaline Phosphatase 103 U/L (35-104); BUN 12 mg/dL (4-19); BUN/Creat Ratio 14.1 RATIO (10-20); Calcium,Total 8.7 mg/dL (7.6-11.0); Carbon Dioxide 18.7 mmol/L (21.0-32.0); Creatinine, Serum 0.85 mg/dL (0.70-1.20); EST Glomerular Filtration Rate 71 (>60); Estimated Creatinine Clearance 75.04 ml/min (50-250); Glucose 161 mg/dL (70-99); Total Bilirubin 0.18 mg/dL (0.00-1.30)
[2024-11-27 07:03] LABS: ALB/GLOB Ratio 1.1 RATIO (0.9-2.4); Albumin, Serum 3.2 g/dL (3.4-4.8); Anion Gap 13 (5-15); Chloride 108 mmol/L (98-108); Globulin 2.8 g/dL (2.2-4.2); Potassium 3.8 mmol/L (3.3-5.1); Sodium Level 140 mmol/L (133-145)
[2024-11-27] MEDS: Losartan Potassium 25 MG Tablet PO (09:44)
[2024-11-27] MEDS: Carvedilol 3.125 MG TABLET PO ×2 (09:44→22:27)
[2024-11-27] MEDS: Clopidogrel Bisulfate 75 MG Tablet PO (09:44)
[2024-11-27] MEDS: Aspirin E.C. 81 MG Tablet PO (09:44)
--- NOTE | 2024-11-27 10:05 | PN_ITS ---
Subjective Subjective Patient seen and examined. She had no active complaints. She denied any fever, chills, cough, chest pain, palpitations, dizziness, nausea, vomiting or any other symptoms. Review of systems is otherwise negative. Objective Data Objective Data Vital Signs: Vital Signs Temp Pulse Resp BP Pulse Ox O2 Del Method 97.1 F L 88 25 H 133/84 H 99 Room Air 11/27/24 09:43 11/27/24 09:43 11/27/24 09:43 11/27/24 09:43 11/27/24 09:43 11/27/24 09:43 Oxygen Delivery Method Room Air Weight: 255 lb 1.197 oz Body Mass Index (BMI) 41.1 Intake & Output: Intake and Output for Last 24 Hours 11/25/24 11/26/24 11/27/24 23:59 23:59 23:59 Intake Total 800 / 800 1040 / 1040 Output Total 0 / 100 300 / 300 Balance 800 / 700 740 / 740 Lab / Micro Data 11/27/24 03:35 11/27/24 03:35 Labs: Laboratory Results - last 24 hr 11/26/24 12:42: PT 14.1, INR 1.1, APTT 25.8 11/26/24 12:43: WBC 9.3, RBC 4.20, Hgb 13.1, Hct 39.4, MCV 93.8, MCH 31.2, MCHC 33.2, RDW Std Deviation 44.4 H, RDW Coeff of Hugo 13.0, Plt Count 285, MPV 8.9, Immature Gran % (Auto) 0.600, Neut % (Auto) 59.9, Lymph % (Auto) 30.1, [place] % (Auto) 5.9, Eos % (Auto) 3.1, Baso % (Auto) 0.4, Absolute Neuts (auto) 5.6, Absolute Lymphs (auto) 2.79, Nucleated RBC % 0, Sodium 138, Potassium 4.1, Chloride 107, Carbon Dioxide 19.0 L, Anion Gap 13, BUN 13, Creatinine 0.88, Estim Creat Clear Calc 72.16, Est GFR (MDRD) Non-Af 69, BUN/Creatinine Ratio 14.3, Glucose 180 H, Calcium 9.4, Magnesium 1.7, Troponin T High Sens 16 H 11/26/24 13:06: Activated Clotting Time 158 H 11/26/24 13:46: Activated Clotting Time 170 H 11/26/24 13:57: Activated Clotting Time 262 H 11/26/24 16:42: POC Glucose 152 H 11/27/24 03:35: WBC 9.8, RBC 3.69 L, Hgb 11.4 L, Hct 33.9 L, MCV 91.9, MCH 30.9, MCHC 33.6, RDW Std Deviation 44.5 H, RDW Coeff of Hugo 13.1, Plt Count 258, MPV 8.8, Immature Gran % (Auto) 0.400, Neut % (Auto) 69.9, Lymph % (Auto) 20.7, [place] % (Auto) 6.5, Eos % (Auto) 2.2, Baso % (Auto) 0.3, Absolute Neuts (auto) 6.8, Absolute Lymphs (auto) 2.02, Nucleated RBC % 0, Sodium 140, Potassium 3.8, Chloride 108, Carbon Dioxide 18.7 L, Anion Gap 13, BUN 12, Creatinine 0.85, Estim Creat Clear Calc 75.04, Est GFR (MDRD) Non-Af 71, BUN/Creatinine Ratio 14.1, Glucose 161 H, Hemoglobin A1c 6.8, Calcium 8.7, Total Bilirubin 0.18, AST 25, ALT 24, Alkaline Phosphatase 103, Total Protein 6.0, Albumin 3.2 L, Globulin 2.8, Albumin/Globulin Ratio 1.1, Triglycerides 134, Cholesterol 128, LDL Cholesterol, Calc 59, VLDL Cholesterol 27, HDL Cholesterol 42, Cholesterol/HDL Ratio 3.03 Radiography Diagnostic Testing: Radiology Impression Echocardiogram 11/26/24 14:26 Interpretation Summary Severe apical hypokinesis to akinesis. Anterior septal hypokinesis. Overall LVEF estimated at 50%. Stage I diastolic dysfunction. The study was technically difficult. Ordering Physician: Saurav Arellano Referring Physician: Saurav Arellano Performed By: Tabitha Espitia RCS Rhythm Strip Rhythm Strip: Sinus Rhythm Physical Exam Const alert, oriented x3 and no apparent distress Constitutional Narrative: class III obesity General Appearance: cooperative HEENT normocephalic, head/scalp atraumatic, hearing grossly normal bilaterally and moist oral mucous membranes Eyes PERRL, EOMs intact bilaterally and conjunctivae normal Neck no lymphadenopathy and supple Resp normal respiratory effort, normal air movement, no retractions, no use of accessory muscles and clear to auscultation bilaterally Cardio regular rate, regular rhythm, S1 normal heart sound, S2 normal heart sound and no murmurs GI normal to inspection, nondistended, normoactive bowel sounds, soft to palpation, non-tender and non-distended Extremity normal to inspection, full ROM, normal capillary refill and no clubbing, cyanosis or edema General Extremity: no tenderness to palpation of joints or extremities Skin General Skin Exam: no breakdown Neuro oriented x3, CN's II-XII intact bilaterally, moves all extremities and no focal motor deficits Sensorium / Orientation: awake and alert Motor Exam: strength 5/5 throughout Psych thought process normal, cooperative and affect normal Appearance: appropriate Assessment & Plan Assessment/Plan (1) ST elevation (STEMI) myocardial infarction: PLAN: Plan #STEMI s/p cardiac cath * Patient admitted with a complaint of chest pain which lasted about 20 minutes prior to admission. She had ST elevation in leads V1 and V2 on admission was sent emergently to the [facility]. * Had cardiac cath which showed 95% proximal LAD occlusion with thrombus. She had successful PTCA with drug-eluting stent insertion to the proximal LAD. * Place patient on aspirin and plavix as well as high intensity statin. To be on aspirin indefinitely and Brilinta for at least 6 months per cardiology. * 2D echo showed EF of 50%, with anterior septal hypokinesis and severe apical hypokinesis and stage I diastolic dysfunction. * Type 2 diabetes mellitus with neuropathy: * On Lantus 25 units daily as well as Januvia. Was on gabapentin. * insulin sliding scale. Accuchecks ACHS. * Follows with endocrinology. #Hypertension: On losartan. Will likely benefit from addition of beta-carlos in light of STEMI #GERD: on PPI. #History of Alexis thyroiditis * has a history of positive thyroid antibodies with normal TSH * follow with endocrinology on outpatient basis. * #DVT prophylaxis: SCDs CODE STATUS: Full code Disposition: transfer out of ICU to PCU Charges/Coding Visit Charges Inpatient E&M: 87061 Subs Hosp L2
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
--- NOTE | 2024-11-27 11:18 | PCM.PN.CARD ---
Subjective Subjective Doing well. No complaints. No chest pain. No shortness of breath. Objective Data Vital Signs: Vital Signs Temp Pulse Resp BP Pulse Ox O2 Del Method 97.1 F L 88 25 H 133/84 H 99 Room Air 11/27/24 09:43 11/27/24 09:43 11/27/24 09:43 11/27/24 09:43 11/27/24 09:43 11/27/24 09:43 Oxygen Delivery Method Room Air Weight: 255 lb 1.197 oz Body Mass Index (BMI) 41.1 Intake & Output: Intake and Output for Last 24 Hours 11/25/24 11/26/24 11/27/24 23:59 23:59 23:59 Intake Total 800 / 800 1040 / 1040 Output Total 0 / 100 300 / 300 Balance 800 / 700 740 / 740 Lab / Micro Data 11/27/24 03:35 11/27/24 03:35 Labs: Laboratory Results - last 24 hr 11/26/24 12:42: PT 14.1, INR 1.1, APTT 25.8 11/26/24 12:43: WBC 9.3, RBC 4.20, Hgb 13.1, Hct 39.4, MCV 93.8, MCH 31.2, MCHC 33.2, RDW Std Deviation 44.4 H, RDW Coeff of Hugo 13.0, Plt Count 285, MPV 8.9, Immature Gran % (Auto) 0.600, Neut % (Auto) 59.9, Lymph % (Auto) 30.1, [place] % (Auto) 5.9, Eos % (Auto) 3.1, Baso % (Auto) 0.4, Absolute Neuts (auto) 5.6, Absolute Lymphs (auto) 2.79, Nucleated RBC % 0, Sodium 138, Potassium 4.1, Chloride 107, Carbon Dioxide 19.0 L, Anion Gap 13, BUN 13, Creatinine 0.88, Estim Creat Clear Calc 72.16, Est GFR (MDRD) Non-Af 69, BUN/Creatinine Ratio 14.3, Glucose 180 H, Calcium 9.4, Magnesium 1.7, Troponin T High Sens 16 H 11/26/24 13:06: Activated Clotting Time 158 H 11/26/24 13:46: Activated Clotting Time 170 H 11/26/24 13:57: Activated Clotting Time 262 H 11/26/24 16:42: POC Glucose 152 H 11/27/24 03:35: WBC 9.8, RBC 3.69 L, Hgb 11.4 L, Hct 33.9 L, MCV 91.9, MCH 30.9, MCHC 33.6, RDW Std Deviation 44.5 H, RDW Coeff of Hugo 13.1, Plt Count 258, MPV 8.8, Immature Gran % (Auto) 0.400, Neut % (Auto) 69.9, Lymph % (Auto) 20.7, [place] % (Auto) 6.5, Eos % (Auto) 2.2, Baso % (Auto) 0.3, Absolute Neuts (auto) 6.8, Absolute Lymphs (auto) 2.02, Nucleated RBC % 0, Sodium 140, Potassium 3.8, Chloride 108, Carbon Dioxide 18.7 L, Anion Gap 13, BUN 12, Creatinine 0.85, Estim Creat Clear Calc 75.04, Est GFR (MDRD) Non-Af 71, BUN/Creatinine Ratio 14.1, Glucose 161 H, Hemoglobin A1c 6.8, Calcium 8.7, Total Bilirubin 0.18, AST 25, ALT 24, Alkaline Phosphatase 103, Total Protein 6.0, Albumin 3.2 L, Globulin 2.8, Albumin/Globulin Ratio 1.1, Triglycerides 134, Cholesterol 128, LDL Cholesterol, Calc 59, VLDL Cholesterol 27, HDL Cholesterol 42, Cholesterol/HDL Ratio 3.03 Rhythm Strip Rhythm Strip: Sinus Rhythm Cardiology Labs/Tests 11/26/24 12:42: PT 14.1, INR 1.1, APTT 25.8 11/26/24 12:43: WBC 9.3, RBC 4.20, Hgb 13.1, Hct 39.4, MCV 93.8, MCH 31.2, MCHC 33.2, Plt Count 285, MPV 8.9, Immature Gran % (Auto) 0.600, Neut % (Auto) 59.9, Lymph % (Auto) 30.1, [place] % (Auto) 5.9, Eos % (Auto) 3.1, Baso % (Auto) 0.4, Absolute Neuts (auto) 5.6, Nucleated RBC % 0, Sodium 138, Potassium 4.1, Chloride 107, Carbon Dioxide 19.0 L, Anion Gap 13, BUN 13, Creatinine 0.88, Est GFR (MDRD) Non-Af 69, BUN/Creatinine Ratio 14.3, Glucose 180 H, Calcium 9.4, Magnesium 1.7 11/27/24 03:35: WBC 9.8, RBC 3.69 L, Hgb 11.4 L, Hct 33.9 L, MCV 91.9, MCH 30.9, MCHC 33.6, Plt Count 258, MPV 8.8, Immature Gran % (Auto) 0.400, Neut % (Auto) 69.9, Lymph % (Auto) 20.7, [place] % (Auto) 6.5, Eos % (Auto) 2.2, Baso % (Auto) 0.3, Absolute Neuts (auto) 6.8, Nucleated RBC % 0, Sodium 140, Potassium 3.8, Chloride 108, Carbon Dioxide 18.7 L, Anion Gap 13, BUN 12, Creatinine 0.85, Est GFR (MDRD) Non-Af 71, BUN/Creatinine Ratio 14.1, Glucose 161 H, Hemoglobin A1c 6.8, Calcium 8.7, Total Bilirubin 0.18, Triglycerides 134, Cholesterol 128, VLDL Cholesterol 27, HDL Cholesterol 42, Cholesterol/HDL Ratio 3.03 Rhythm: EKG: ECHO: Stress Test: Cardiac Cath: PCI: CT Surgery: Holter monitor: EPS: PPM: CXR: Chest CT Scan: Radiography Diagnostic Testing: Radiology Impression Echocardiogram 11/26/24 14:26 Interpretation Summary Severe apical hypokinesis to akinesis. Anterior septal hypokinesis. Overall LVEF estimated at 50%. Stage I diastolic dysfunction. The study was technically difficult. Ordering Physician: Saurav Arellano Referring Physician: Saurav Arellano Performed By: Tabitha Espitia RCS Physical Exam Narrative Comfortable. No distress. Heart sounds 1 and 2 on normal. No murmurs or rubs. Chest clear to auscultation bilaterally. Alert oriented x 3. No ankle edema. Assessment & Plan Assessment/Plan (1) ST elevation (STEMI) myocardial infarction involving left anterior descending coronary artery: PLAN: Status post SAGE to the proximal LAD. Continue aspirin. Clopidogrel. (2) Coronary artery disease: PLAN: Aspirin, clopidogrel, beta-blockers, statins. (3) Hypertension: QUALIFIERS: Hypertension type: unspecified Qualified Code(s): I10 - Essential (primary) hypertension PLAN: Beta-blockers and ARB's. (4) Grade I diastolic dysfunction: PLAN: Start on SGLT2 inhibitor. PLAN: Plan May discharge home in the morning if continues to be hemodynamically stable.
--- NOTE | 2024-11-27 14:43 | CHAPLAIN ---
Type of Pastoral Visit _x__ Initial Visit ___ Follow-up Visit ___ On-call Visit ___ General Patient Visit ___ Spiritual Assessment ___ Family Conference ___ Bereavement ___ Rapid Response ___ Code Blue ___ Other (describe below) Pastoral Care Referral From _x__ Patient ___ Family ___ Nurse ___ Physician ___ Assistant Chief Engineer ___ Deputy Program Manager ___ Other (describe below) Sacrament/Intervention _x__ Active listening ___ Anointing ___ Zoroastrianism ___ Bereavement ___ Communion _x__ Mickie exploration ___ _x__ Life review ___ Prayer ___ Reconciliation ___ Sacrament of Sick ___ Supportive presence ___ Wedding ___ Other (describe below) Pastoral Comments this was a follow up to the patient that went to rn labor delivery yesterday after a stemi alert was called; her SO is not here today; pt is very talkative about her life, opinions, experiences, and in doing so is quite negative about her life and her feelings toward other people; attempts made to bring some compassionate care and pt is offered support and a prayer but she denies any other needs at this time
[2024-11-27] MEDS: Atorvastatin Calcium 80 MG Tablet PO (22:27)
[2024-11-28 02:37] VITALS: BP 115/74; PULSE 88; RESP 16; TEMP 36.4; O2SAT 99
--- NOTE | 2024-11-28 03:00 | NURSING ---
This RN took over care at this time.
[2024-11-28 07:30] VITALS: O2SAT 94
[2024-11-28 07:49] LABS: Absolute Lymphocyte Count 1.99 X10^3/uL (0.83-4.51); Absolute Neutrophil Count 4.9 X10^3/uL (2.0-7.7); Basophil# 0.04 X10^3/uL; Basophil% 0.5 % (0-1); Eosinophil# 0.35 X10^3/uL; Eosinophils% 4.5 % (0-5); Hematocrit 35.2 % (37-47); Hemoglobin 11.7 g/dL (12.0-15.0); Lymphocyte # 1.99 X10^3/ul (0.83-4.51); Lymphocyte % 25.6 % (19-41); Mean Corp Hgb Conc 33.2 g/dL (32-36); Mean Corpuscular Hgb 31.1 pg (27.0-32.0); Mean Corpuscular Volume 93.6 fL (81-99); Monocyte% 6.4 % (0-10); NRBC Flagged by Analyzer 0 % (0-5); Neutrophil # 4.86 X10^3/uL (2.7-7.7); Neutrophil % 62.6 % (47-70); Platelet Count 281 K/mm3 (150-450); RBC Distribution Width SD 44.9 fl (35.1-43.9); Red Blood Count 3.76 M/mm3 (4.2-5.4); White Blood Count 7.8 K/mm3 (4.4-11.0)
[2024-11-28 08:32] VITALS: BP 133/88; PULSE 85; RESP 16; TEMP 36.6; O2SAT 99
[2024-11-28] MEDS: Carvedilol 3.125 MG TABLET PO (08:38)
[2024-11-28] MEDS: Aspirin E.C. 81 MG Tablet PO (08:38)
[2024-11-28] MEDS: Clopidogrel Bisulfate 75 MG Tablet PO (08:38)
[2024-11-28] MEDS: Losartan Potassium 25 MG Tablet PO (08:38)
[2024-11-28 09:00] LABS: Bedside Glucose 174 mg/dL (74-106)
[2024-11-28 09:45] LABS: Anion Gap 12 (5-15); BUN 13 mg/dL (4-19); BUN/Creat Ratio 16.8 RATIO (10-20); Calcium,Total 9.2 mg/dL (7.6-11.0); Carbon Dioxide 21.7 mmol/L (21.0-32.0); Chloride 108 mmol/L (98-108); Creatinine, Serum 0.79 mg/dL (0.70-1.20); EST Glomerular Filtration Rate 79 (>60); Estimated Creatinine Clearance 79.73 ml/min (50-250); Glucose 166 mg/dL (70-99); Potassium 4.1 mmol/L (3.3-5.1); Sodium Level 141 mmol/L (133-145)
--- NOTE | 2024-11-28 10:50 | PN.CARD_ITS ---
Subjective Subjective Denies any complaints. Ambulating. Objective Data Vital Signs: Vital Signs Temp Pulse Resp BP Pulse Ox O2 Del Method 97.8 F 85 16 133/88 H 99 Room Air 11/28/24 08:32 11/28/24 08:32 11/28/24 08:32 11/28/24 08:32 11/28/24 08:32 11/28/24 08:40 Oxygen Delivery Method Room Air Weight: 255 lb 1.197 oz Body Mass Index (BMI) 41.1 Intake & Output: Intake and Output for Last 24 Hours 11/26/24 11/27/24 11/28/24 23:59 23:59 23:59 Intake Total 800 / 800 1620 / 1620 120 / 120 Output Total 0 / 100 300 / 300 Balance 800 / 700 1320 / 1320 120 / 120 Lab / Micro Data 11/28/24 07:05 11/28/24 07:05 Labs: Laboratory Results - last 24 hr 11/28/24 07:05: WBC 7.8, RBC 3.76 L, Hgb 11.7 L, Hct 35.2 L, MCV 93.6, MCH 31.1, MCHC 33.2, RDW Std Deviation 44.9 H, RDW Coeff of Hugo 13.0, Plt Count 281, MPV 9.0, Immature Gran % (Auto) 0.400, Neut % (Auto) 62.6, Lymph % (Auto) 25.6, [place] % (Auto) 6.4, Eos % (Auto) 4.5, Baso % (Auto) 0.5, Absolute Neuts (auto) 4.9, Absolute Lymphs (auto) 1.99, Nucleated RBC % 0, Sodium 141, Potassium 4.1, Chloride 108, Carbon Dioxide 21.7, Anion Gap 12, BUN 13, Creatinine 0.79, Estim Creat Clear Calc 79.73, Est GFR (MDRD) Non-Af 79, BUN/Creatinine Ratio 16.8, G lucose 166 H, Calcium 9.2 11/28/24 08:29: POC Glucose 174 H Rhythm Strip Rhythm Strip: Sinus Rhythm Cardiology Labs/Tests 11/28/24 07:05: WBC 7.8, RBC 3.76 L, Hgb 11.7 L, Hct 35.2 L, MCV 93.6, MCH 31.1, MCHC 33.2, Plt Count 281, MPV 9.0, Immature Gran % (Auto) 0.400, Neut % (Auto) 62.6, Lymph % (Auto) 25.6, [place] % (Auto) 6.4, Eos % (Auto) 4.5, Baso % (Auto) 0.5, Absolute Neuts (auto) 4.9, Nucleated RBC % 0, Sodium 141, Potassium 4.1, Chloride 108, Carbon Dioxide 21.7, Anion Gap 12, BUN 13, Creatinine 0.79, Est GFR (MDRD) Non-Af 79, BUN/Creatinine Ratio 16.8, Glucose 166 H, Calcium 9.2 Rhythm: EKG: ECHO: Stress Test: Cardiac Cath: PCI: CT Surgery: Holter monitor: EPS: PPM: CXR: Chest CT Scan: Physical Exam Narrative Comfortable. No distress. Heart sounds 1 and 2 on normal. No murmurs or rubs. Chest clear to auscultation bilaterally. Alert oriented x 3. No ankle edema. Assessment & Plan Assessment/Plan (1) ST elevation (STEMI) myocardial infarction involving left anterior descending coronary artery: PLAN: Status post SAGE to the proximal LAD. Continue aspirin. Clopidogrel. (2) Coronary artery disease: PLAN: Aspirin, clopidogrel, beta-blockers, statins. (3) Hypertension: QUALIFIERS: Hypertension type: unspecified Qualified Code(s): I10 - Essential (primary) hypertension PLAN: Beta-blockers and ARB's. (4) Grade I diastolic dysfunction: PLAN: Started on SGLT2 inhibitor. PLAN: Plan Okay to discharge home from cardiology standpoint. 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
--- NOTE | 2024-11-28 11:36 | DS.PCM_ITS ---
Providers Date of Admission: 11/26/24 Date of Discharge: 11/28/24 Primary Care Physician: Dr. Aquiles Hill MD Consultations 11/26/24 14:22 Consult: Cardiology Routine Consulting Provider: Saurav Arellano Reason for Consult: STEMI s/p cardiac cath EMERGENT Consult: No MD Notified: Yes Date Notified: 11/26/24 Time Notified: 14:26 Method of Notification: ED Physician Initiated Comments:: cardiology already aware Reason For Visit: chest pain Diagnosis Discharge Diagnosis (1) ST elevation (STEMI) myocardial infarction involving left anterior descending coronary artery: Status: Acute Code(s): I21.02 - ST elevation (STEMI) myocardial infarction involving left anterior descending coronary artery (2) Coronary artery disease: Status: Acute Code(s): I25.10 - Atherosclerotic heart disease of [place] coronary artery without angina pectoris (3) Hypertension: Status: Chronic Code(s): I10 - Essential (primary) hypertension Qualifiers: Hypertension type: unspecified Qualified Code(s): I10 - Essential (primary) hypertension (4) Grade I diastolic dysfunction: Status: Acute Code(s): I51.89 - Other ill-defined heart diseases Plan #STEMI s/p cardiac cath * Patient admitted with a complaint of chest pain which lasted about 20 minutes prior to admission. She had ST elevation in leads V1 and V2 on admission was sent emergently to the [facility]. * Had cardiac cath which showed 95% proximal LAD occlusion with thrombus. She had successful PTCA with drug-eluting stent insertion to the proximal LAD. * Place patient on aspirin and plavix as well as high intensity statin. To be on aspirin indefinitely and Brilinta for at least 6 months per cardiology. * 2D echo showed EF of 50%, with anterior septal hypokinesis and severe apical hypokinesis and stage I diastolic dysfunction. * Type 2 diabetes mellitus with neuropathy: * On Lantus 25 units daily as well as Januvia. Was on gabapentin. * insulin sliding scale. Accuchecks ACHS. * Follows with endocrinology. #Hypertension: On losartan. Will likely benefit from addition of beta-cheri in light of STEMI #GERD: on PPI. #History of Alexis thyroiditis * has a history of positive thyroid antibodies with normal TSH * follow with endocrinology on outpatient basis. * #DVT prophylaxis: SCDs CODE STATUS: Full code Disposition: transfer out of ICU to PCU Medications at Discharge Home Medications cholecalciferol (vitamin D3) 10 mcg (400 unit) capsule 25 mcg PO DAILY Check with primary doctor 07/06/21 gabapentin 600 mg tablet 600 mg PO DAILY Check with primary doctor 07/06/21 vitamin B complex (B Complex-Vitamin B12 tablet) 1 tab PO DAILY supplement 09/18/21 multivitamin 1 tab PO DAILY supplement 08/03/22 cranberry extract 250 mg tablet 1 mg PO DAILY Check with primary doctor 08/20/22 circaid wrap #2 ea 09/03/22 acetaminophen 500 mg tablet 1,000 mg PO Q6 PRN 11/28/22 omeprazole 20 mg capsule,delayed release 40 mg PO DAILY PRN reflux 11/28/22 Handicap Placard #1 ea 12/10/22 blood-glucose meter (Liquiteriauch Ultra2 Meter kit) #1 ea 01/18/23 Electronic blood pressure cuff #1 ea 05/20/23 diclofenac sodium 1 % topical gel 4 g topical BID PRN Muscle/joint pain #100 grams 06/18/23 blood sugar diagnostic (XinrongTouch Ultra Test strips) #180 ea 08/05/23 lancets #180 ea 08/05/23 pen needle, diabetic 32 gauge x 5/32 (BD Ultra-Fine Nan Pen Needle) #150 ea 09/12/23 insulin glargine 100 unit/mL (3 mL) subcutaneous pen (Lantus Solostar U-100 Insulin) 35 unit subcut DAILY DM 11/26/24 insulin lispro 100 unit/mL subcutaneous cartridge (Humalog U-100 Insulin) 10 unit subcut TID diabetes 11/26/24 methenamine hippurate 1 gram tablet 1 g PO Q12H 11/26/24 probenecid 500 mg tablet 250 mg PO Q12H 11/26/24 aspirin 81 mg tablet,delayed release 81 mg PO DAILY@0800 #30 tabs 11/28/24 atorvastatin 80 mg tablet 80 mg PO QHS #30 tabs 11/28/24 carvedilol 3.125 mg tablet 3.125 mg PO BID #60 tabs 11/28/24 clopidogrel 75 mg tablet 75 mg PO DAILY #30 tabs 11/28/24 dapagliflozin propanediol 10 mg tablet (Farxiga) 10 mg PO DAILY #30 tabs 11/28/24 losartan 25 mg tablet 25 mg PO DAILY #30 tabs 11/28/24 Hospital Course Operations None Procedures 2-D Echocardiogram and Cardiac catheterization Summary of Care Provided Minutes Spent on Discharge: 48 Hospital Course: TRISTEN GOMEZ, is a 74 F with a past medical history as outlined was admitted through the ED on 11/26/2024 with a complaint of chest pain. He had a past medical history of diabetes and hypertension as well as a remote history of PE. The chest pain started about 20 minutes prior to admission and she had associated nausea and vomiting. She denied any history of heart disease and says she sees a memory care program director at ; she denies any history of heart issues. Review of systems otherwise negative. EKG done on admission showed ST elevation in V1 and V2 with reciprocal inferior changes. STEMI alert was called and patient was taken emergently to the [facility] after being given aspirin and Brilinta as well as heparin, morphine and Zofran. CBC done prior to the cath showed WBC of 9.3 with hemoglobin of 13.1 and platelets of 285. Initial troponin was 16. Chemistry showed potassium of 4.1 with sodium of 138, bicarb of 19 and anion gap of 13 with a creatinine of 0.88. Creatinine was 0.8, serum glucose was 180. Chest x-ray showed no acute cardiopulmonary pathology. She had cardiac cath. She was admitted to the ICU afterwards. She had cardiac cath which showed 95% proximal LAD occlusion with thrombus. She had successful PTCA with drug-eluting stent insertion to the proximal LAD. She was placed on aspirin and high intensity statin as well as Plavix. She had 2D echo which showed EF of 50% with anterior septal hypokinesis and severe apical hypokinesis and stage I diastolic dysfunction. Patient was transferred out of the ICU and remained stable. He was discharged home on 11/28/2024. She was discharged on p.o. aspirin and Plavix as well as high intensity statin. She was also discharged on Farxiga and her Januvia was discontinued. Her metoprolol switched to p.o. carvedilol and her losartan was decreased to 25 mg daily. She is follow-up with her primary care doctor within 1 to 2 weeks. Patient seen and examined prior to discharge. She felt well and had no complaints. Patient says she wanted to follow-up with her primary memory care program director who was over in [place] and with however she had tried calling the memory care program director office to book an appointment and says she was told that her next appointment was in the end of December. She thought that was too far off and so was going to try again on Saturday and in the interim wanted to be referred to [facility]. Labs and vitals reviewed. Home medication reviewed and reconciled. Physical Exam Const alert, oriented x3 and no apparent distress Constitutional Narrative: class III obesity General Appearance: cooperative and comfortable Orientation / Consciousness: awake Exam Limitations: no limitations HEENT normocephalic, head/scalp atraumatic, hearing grossly normal bilaterally, moist oral mucous membranes and oropharynx normal Mouth: oral and palatal mucosa normal Eyes PERRL, EOMs intact bilaterally and conjunctivae normal Neck no lymphadenopathy and supple Resp normal respiratory effort, normal air movement, no retractions, no use of accessory muscles and clear to auscultation bilaterally Cardio regular rate, regular rhythm, S1 normal heart sound, S2 normal heart sound and no murmurs GI normal to inspection, nondistended, normoactive bowel sounds, soft to palpation, non-tender and non-distended Extremity normal to inspection, full ROM, normal capillary refill and no clubbing, cyanosis or edema General Extremity: no tenderness to palpation of joints or extremities Skin no rashes or lesions noted General Skin Exam: no breakdown Neuro oriented x3, CN's II-XII intact bilaterally, moves all extremities and no focal motor deficits Sensorium / Orientation: awake and alert Motor Exam: strength 5/5 throughout Psych thought process normal, cooperative and affect normal Appearance: appropriate Weight / BMI Weight Weight: 255 lb 1.197 oz Body Mass Index (BMI) 41.1 ABG / Lab / Microbiology Data 11/28/24 07:05 11/28/24 07:05 Laboratory: Laboratory Results - last 24 hr 11/28/24 07:05: WBC 7.8, RBC 3.76 L, Hgb 11.7 L, Hct 35.2 L, MCV 93.6, MCH 31.1, MCHC 33.2, RDW Std Deviation 44.9 H, RDW Coeff of [place] 13.0, Plt Count 281, MPV 9.0, Immature Gran % (Auto) 0.400, Neut % (Auto) 62.6, Lymph % (Auto) 25.6, [place] % (Auto) 6.4, Eos % (Auto) 4.5, Baso % (Auto) 0.5, Absolute Neuts (auto) 4.9, Absolute Lymphs (auto) 1.99, Nucleated RBC % 0, Sodium 141, Potassium 4.1, Chloride 108, Carbon Dioxide 21.7, Anion Gap 12, BUN 13, Creatinine 0.79, Estim Creat Clear Calc 79.73, Est GFR (MDRD) Non-Af 79, BUN/Creatinine Ratio 16.8, G lucose 166 H, Calcium 9.2 11/28/24 08:29: POC Glucose 174 H D/C Instructions Discharge Diet: Low fat / Low cholesterol Discharge Activity: Return to Normal Activity Weight Bearing Status: Weight bearing as tolerated Call your doctor if you observe: Fever of 101 or Higher, Shortness of breath, Dizziness, Swelling in the ankles and Chest pain DC O2, CPAP, BIPAP Needs Home O2 Discharge instructions: No DC home with Oxygen: No Meaningful Use Info Meaningful Use Meaningful Use Diagnoses (Choose all that apply): AMI AMI/Post PCI/Angioplasty Aspirin given w/in 24hrs of arrival?: Yes ASA at discharge?: Yes Antiplatelet Therapy at Discharge:: Yes Statins at discharge?: Yes Agustin/ARB at discharge?: Yes Beta Cheri at discharge?: Yes Done w/ Acute MO measure.: Yes Documented LVEF (%): 50 Ischemic Stroke Statin Dosing Therapy Reference: STATIN DOSE THERAPY REFERENCE: * Patients > 75 years receive moderate or high dose statin therapy. * Patients 75 years or YOUNGER should receive HIGH intensity statin dose unless contraindicated. You will be required to document reason for non-treatment if statin daily dose does not meet guidelines. HIGH DOSE STATIN THERAPY DAILY Atorvastatin > than or = to 40 mg Rosuvastatin > than or = to 20 mg Amlodipine + Atorvastatin > than or = to 2.5/40 mg Ezetimibe + Simvastatin 10/80 mg Simvastatin 80mg Discharge Plan Admission Admit Date/Time: 11/26/24 14:22 Primary Reason for Your Visit: STEMI Attending Provider: Tahira De Primary Care Provider: Aquiles Hill Consulting Providers: Sanchez Mendez; Saurav Arellano Instructions Patient Instructions: Heart Attack Dc, Heart Attack Meds Discharge Orders/Prescriptions Prescriptions: New aspirin 81 mg Tablet,Delayed Release (Dr/Ec) 81 mg PO DAILY@0800 Qty: 30 3RF atorvastatin 80 mg Tablet 80 mg PO QHS Qty: 30 2RF clopidogrel 75 mg Tablet 75 mg PO DAILY Qty: 30 3RF carvedilol 3.125 mg Tablet 3.125 mg PO BID Qty: 60 2RF dapagliflozin propanediol [Farxiga] 10 mg Tablet 10 mg PO DAILY Qty: 30 2RF losartan 25 mg Tablet 25 mg PO DAILY Qty: 30 2RF Continued gabapentin 600 mg tablet 600 mg PO DAILY omeprazole 20 mg capsule,delayed release(DR/EC) 40 mg PO DAILY PRN (Reason: reflux) acetaminophen 500 mg tablet 1,000 mg PO Q6 PRN multivitamin Tablet 1 tab PO DAILY methenamine hippurate 1 gram tablet 1 g PO Q12H probenecid 500 mg tablet 250 mg PO Q12H Patient Comments: Per Pts Pharmacy pt has not yet filled Humalog U-100 Insulin 100 unit/mL cartridge 10 unit subcut TID Rx Instructions: plus sliding scale insulin glargine [Lantus Solostar U-100 Insulin] 100 unit/mL (3 mL) insulin pen 35 unit subcut DAILY diclofenac sodium 1 % gel 4 g topical BID PRN (Reason: Muscle/joint pain) Qty: 100 6RF Discontinued losartan 50 mg tablet 50 mg PO DAILY Qty: 90 1RF Januvia 100 mg Tablet 100 mg PO DAILY metoprolol tartrate 25 mg tablet 25 mg PO Q12H No Action cholecalciferol (vitamin D3) 10 mcg (400 unit) capsule 25 mcg PO DAILY cranberry extract 250 mg tablet 1 mg PO DAILY Patient Comments: 30,000 vitamin B complex [B Complex-Vitamin B12] Tablet 1 tab PO DAILY (DME) Handicap Placard See Rx Instructions .ROUTE .MEDSUPPLY Qty: 1 0RF Rx Instructions: As directed, length of time 3 years (DME) circaid wrap large See Rx Instructions .Route .MEDSUPPLY Qty: 2 2RF Rx Instructions: Wear daily, remove at bedtime (DME) Electronic blood pressure cuff See Rx Instructions .Route .MEDSUPPLY Qty: 1 0RF Rx Instructions: As directed (DME) blood-glucose meter [OneTouch Ultra2 Meter] Kit See Rx Instructions .Route Qty: 1 0RF Rx Instructions: As directed (DME) OneTouch Ultra Test Strip See Rx Instructions .ROUTE .MEDSUPPLY Qty: 180 6RF Rx Instructions: 6x/day (DME) lancets Misc See Rx Instructions .ROUTE .MEDSUPPLY Qty: 180 6RF Rx Instructions: 4x/day (DME) pen needle, diabetic [BD Ultra-Fine Nan Pen Needle] 32 gauge x 5/32 needle See Rx Instructions .ROUTE .MEDSUPPLY Qty: 150 6RF Rx Instructions: 5x/day Referrals / Follow Up: Saurav Arellano MD [Med Staff - Active Staff] - Within 2 Weeks Aquiles Hill MD [Primary Care Provider] - Within 1 Week Disposition Disposition (needs filled in before D/C Order can be placed): Home, Self Care Charges/Coding Visit Charges Inpatient E&M: 16133 Disch Hosp >30min
[2024-11-28 12:38] VITALS: BP 152/73; PULSE 84; RESP 16; TEMP 36.6; O2SAT 98
[2024-11-28] MEDS: DAPAGLIFLOZIN PROPANEDIOL 10 MG TABLET PO (12:40)
== END 2024-11-28 14:42 | disposition home or self-care (01) | DRG 322 ==
LOC: ED 13:14 → CLSP 13:31 → ICU 14:07 → CLSP 14:52 → ICU 14:52 → PCU 11-27 16:07
PROVIDERS: Hospitalist; Admitting Provider Student in an Organized Health Care Education/Training Program; Emergency Provider Emergency Medicine; PCP Internal Medicine; Referring Provider Internal Medicine Cardiovascular Disease; Visit Provider Student in an Organized Health Care Education/Training Program
DX: I21.02 ST elevation (STEMI) myocardial infarction involving left anterior descending coronary artery (principal); Z68.41 Body mass index [BMI] 40.0-44.9, adult; E11.42 Type 2 diabetes mellitus with diabetic polyneuropathy; M06.9 Rheumatoid arthritis, unspecified; I10 Essential (primary) hypertension; I25.10 Atherosclerotic heart disease of native coronary artery without angina pectoris; K21.9 Gastro-esophageal reflux disease without esophagitis; Z79.4 Long term (current) use of insulin; E66.813 Obesity, class 3; G89.29 Other chronic pain; Z79.84 Long term (current) use of oral hypoglycemic drugs; Z79.899 Other long term (current) drug therapy; Z95.5 Presence of coronary angioplasty implant and graft; Z86.711 Personal history of pulmonary embolism
CPT/HCPCS: 36415; 80048; 80053; 80061; 82962; 83036; 83735; 84484; 85025; 85347; 85610; 85730; 92941; 93005; 93306; 93454; 99152; 99284; C1769; C1894; Q9957; Q9967; A4216; C1725; C1874; C1884; C1887; C8929; C9606; J2405

== ENCOUNTER → 2024-12-04 | Outpatient (CLI) | payer MEDICARE, OTHER, SELFPAY ==
--- NOTE | 2024-12-04 08:03 | PCM.CR.HP2 ---
CR - History & Physical General Arrival date:: 12/04/24 Arrival time:: 08:03 Date of Referral:: 11/26/24 Date of CR Evaluation:: 12/04/24 Referring Physician: Dr. Arellano Primary Diagnosis: SC STEMI <12 months History of Present Cardiac Event Onset Date Acute Myocardial Infarction within 12 months:: Yes (11/26/2024) PTCA or coronary stenting:: Yes Vessel: LAD Medications Ambulatory Orders ?Medication ?Instructions ?Recorded cholecalciferol (vitamin D3) 10 25 mcg PO DAILY Check with primary 07/06/21 mcg (400 unit) capsule doctor gabapentin 600 mg tablet 600 mg PO DAILY Check with primary 07/06/21 doctor vitamin B complex (B 1 tab PO DAILY supplement 09/18/21 Complex-Vitamin B12 tablet) multivitamin 1 tab PO DAILY supplement 08/03/22 cranberry extract 250 mg tablet 1 mg PO DAILY Check with primary 08/20/22 doctor circaid wrap #2 ea 09/03/22 acetaminophen 500 mg tablet 1,000 mg PO Q6 PRN 11/28/22 omeprazole 20 mg capsule,delayed 40 mg PO DAILY PRN reflux 11/28/22 release Handicap Placard #1 ea 12/10/22 blood-glucose meter (OneTouch #1 ea 01/18/23 Ultra2 Meter kit) Electronic blood pressure cuff #1 ea 05/20/23 diclofenac sodium 1 % topical gel 4 g topical BID PRN Muscle/joint 06/18/23 pain #100 grams blood sugar diagnostic (OneTouch #180 ea 08/05/23 Ultra Test strips) lancets #180 ea 08/05/23 pen needle, diabetic 32 gauge x #150 ea 09/12/2332 (BD Ultra-Fine Nan Pen Needle) insulin glargine 100 unit/mL (3 35 unit subcut DAILY DM 11/26/24 mL) subcutaneous pen (Lantus Solostar U-100 Insulin) insulin lispro 100 unit/mL 10 unit subcut TID diabetes 11/26/24 subcutaneous cartridge (Humalog U-100 Insulin) methenamine hippurate 1 gram tablet 1 g PO Q12H 11/26/24 probenecid 500 mg tablet 250 mg PO Q12H 11/26/24 aspirin 81 mg tablet,delayed 81 mg PO DAILY@0800 #30 tabs 03/08/25 release atorvastatin 80 mg tablet 80 mg PO QHS #30 tabs 11/28/24 carvedilol 3.125 mg tablet 3.125 mg PO BID #60 tabs 11/28/24 clopidogrel 75 mg tablet 75 mg PO DAILY #30 tabs 11/28/24 dapagliflozin propanediol 10 mg 10 mg PO DAILY #30 tabs 11/28/24 tablet (Farxiga) losartan 25 mg tablet 25 mg PO DAILY #30 tabs 11/28/24 Allergies Allergies aspirin Allergy (Verified 11/26/24 12:37) Upset Stomach severe abd pain capsaicin Allergy (Verified 11/26/24 12:37) Rash burning of skin chlorhexidine Allergy (Verified 11/26/24 12:37) Rash codeine Allergy (Verified 11/26/24 12:37) Vomiting empagliflozin (From Jardiance) Allergy (Verified 11/26/24 12:37) Other mood change, dark urine erythromycin base Allergy (Verified 11/26/24 12:37) Other Severe Abd pain hydrocodone (From [place]) Allergy (Verified 11/26/24 12:37) Other Hallucinations Sulfa (Sulfonamide Antibiotics) Allergy (Verified 11/26/24 12:37) Rash tramadol Allergy (Verified 11/26/24 12:37) Other Rash, irritable, mood change trimethoprim Allergy (Verified 11/26/24 12:37) PT UNSURE OF REACTION baclofen Adverse Reaction (Severe, Verified 11/26/24 12:37) nightmares adhesive tape Adverse Reaction (Verified 11/26/24 12:37) Rash buprenorphine Adverse Reaction (Verified 11/26/24 12:37) Rash with patch carbidopa (From Sinemet) Adverse Reaction (Verified 11/26/24 12:37) Rash cat dander Adverse Reaction (Verified 11/26/24 12:37) Other cigarette smoke Adverse Reaction (Verified 11/26/24 12:37) Other ciprofloxacin Adverse Reaction (Verified 11/26/24 12:37) Rash cyclobenzaprine Adverse Reaction (Verified 11/26/24 12:37) Nausea Environmental Allergies: Uncoded Adverse Reaction (Verified 11/26/24 12:37) Other All Chemicals levodopa (From Sinemet) Adverse Reaction (Verified 11/26/24 12:37) Other nightmares meperidine Adverse Reaction (Verified 11/26/24 12:37) PT UNSURE OF REACTION sulfamethoxazole (From ) Adverse Reaction (Verified 11/26/24 12:37) Nausea Sleep Disorder Evaluation Hx of Sleep Apnea: No Do you snore loudly (louder than talking or can be heard through closed doors)?: No Do you often feel tired/ fatigued/ sleepy during daytime?: No Has anyone observed you stop breathing during sleep?: No History of Hypertension (for STOP score): Yes STOP Results: Negative Advanced Directives Advanced Directives Power of Nuclear Security Officer: Yes Living Will: Yes Advance Directives Information Provided: Yes Advance Directives on File: Yes DNR Order?:: No Past Medical History Covid-19 Screening Physicial Symptoms Other Clinical Concerns Exposure Risk Pertinent Comorbidities 65 years or older:: Yes Has a serious heart condition:: Yes Diabetic:: Yes Past Medical Illness Medical History H/O Alexis thyroiditis Type 2 diabetes mellitus Breast pain, left Hemorrhoid Breast cancer screening Diabetes mellitus type 1.5 Osteoarthritis Morbid obesity with BMI of 40.0-44.9, adult Osteopenia Left upper arm pain Left shoulder pain Intertriginous dermatitis associated with moisture Chronic back pain Easy bruising Walker as ambulation aid Ambulates with cane Pulmonary embolism DVT (deep venous thrombosis) Syncope Gastric reflux Chronic cough History of stress test Hypertension History of anesthesia problem Degenerative arthritis of hip Hypertension Polyneuropathy Spinal stenosis of lumbar region Cataract fragments in right eye following surgery Herniated nucleus pulposus, L3-4 left Cubital tunnel syndrome on left Impaired gait and mobility Chronic neck pain Cervical spinal stenosis Carpal tunnel syndrome, left Cervical radiculopathy at C8 Glaucoma DM neuropathies Liver hemangioma Ulcer Alexis's thyroiditis Rheumatoid arthritis Lupus IBS (irritable bowel syndrome) Gout Cataracts, bilateral History of breast lump History of UTI Anemia Seasonal allergies Past Surgical History Surgical History Hx of laminectomy History of cataract removal with insertion of prosthetic lens H/O: hysterectomy History of ankle surgery Hx of cholecystectomy History of total right knee replacement History of lumbar laminectomy History of lumbar spinal fusion Hx of tonsillectomy Surgical History: - (Biceps tendon repair, lumbar surgery, hand surgery, right total knee replacement, hysterectomy, left ankle surgery, cholecystectomy.) Family History Summary Family History Grandmother Cerebral aneurysm CVA (cerebral vascular accident) Brother CVA (cerebral vascular accident) Cancer Mother CVA (cerebral vascular accident) Father Cancer Other Diabetes Heart disease Hypertension Myocardial infarction Social History Smoking History Smoking Status: Never smoker Alcohol Use Alcohol Usage: No Substance Abuse Hx Substance Use: No Occupation Occupation (List type of work in comments):: Retired Social Environment Status Marital Status: Current Living Arrangements Living Environment:: Alone Children How many children do you have?: 3 Do any of your children live nearby?: No Safety Do you feel safe in your surroundings?: Yes Assistance Do you need any assistance at home?: no Review of Systems Review of Systems Hints Review of Present Symptoms: Reports Appetite - Special Diet and Sleep - Normal; Denies Shortness of Breath at Rest, Shortness of Breath with Exertion, PVD, Operative Discomfort, Angina, Wound Healing, Dizziness/Lightheadedness, Fatigue, Heart Arrhythmia/Irregularities, Appetite - Normal or Sexual Changes Pain Is Patient Pain Free?: No Pain Location: lower extremity Pain Level: 5/10 Risk Factor Assessment Chief Complaint Chief Complaint: SC STEMI <12 months Vital Signs Pulse Ox: 98 Blood Pressure: 122/68 Pulse Pulse Rate: 84 Pulse Rhythm: Irregular Hypertension Blood Pressure Sitting - Left Arm: 122/68 Stress Stress: Long-standing and Home/Family Diabetes Diabetic History: Type II Obesity Height: 5 ft 6 in Weight:: 250 lb Weight in Pounds: 250.0 lbs Body Mass Index (BMI): 40.3 Nutritional Referral for Obesity: No (declines) Physical Inactivity Physical Inactivity: Reg Exercise 30 min/day Risk Stratification Risk Guidelines: Lowest Risk: Risk Factor for Smoking, Moderate Risk: Risk Factor for Dyslipidemia, Risk Factor for Sedentary Lifestyle and Risk Factor for Depression and Highest Risk: Risk Factor for Diabetes, Risk Factor for Obesity and Risk Factor for Hypertension For Smoking Smoking Risk Guidelines For Dyslipidemia Dyslipidemia Risk Guidelines For Diabetes Mellitus Diabetes Risk Guidelines For Obesity/Overweight Obesity/Overweight Risk Guidelines For Hypertension Hypertension Risk Guidelines For Sedentary Lifestyle Sedentary Lifestyle Risk Guidelines For Depression Depression Risk Guidelines Family History Family History Grandmother Cerebral aneurysm CVA (cerebral vascular accident) Brother CVA (cerebral vascular accident) Cancer Mother CVA (cerebral vascular accident) Father Cancer Other Diabetes Heart disease Hypertension Myocardial infarction Motivation Motivation to Participate On a scale of 1 to 10, how prepared are you to commit to attending program?: 10 What do you see as barriers to successfully being able to complete the program?: nothing What do you see as the benefits of succesfully completing the program? In other words, what do you hope to get out of participating in the program?: cardiac knowledge Are there issues you are dealing with that will interfere with completing the program?: no Do you have a spouse or signficant other, family or friends who will help support you to complete the program?: yes
--- NOTE | 2024-12-04 08:09 | PCM.CR.ITP ---
Diagnosis General Information Admitting Diagnosis: [place] STEMI <12 months Personal Learning Style:: Audio/Visual Barriers to Learning: No Barriers Stage of change r/t lifestyle modifications:: Contemplation Gave educational material for:: Treating Heart Disease, How The Heart Works, What it means to have Heart Disease, How Coronary Artery Disease is Diagnosed, Heart Procedures, What Heart Medications Do, Risk Factors & Modifications, Living an Active Life, Nutrition, Emotions & Heart Disease, Stress Management & Relaxation and Sleep Disorders & Heart Disease Education/Goals Cardiac Rehabilitation Goals Personal Goals: Initial Assessment: Improve management of stress and emotions, Participate in home exercise program, Get back to work, or to resume activities faster, Improve knowledge of cardiac disease, Improve muscle strength and endurance, Improve diet and eating habits (eat healthier) and Control risk factors (learn risk factor modification) Scale for measuring improvement of personal goals Diagnosis & Disease Process Outcomes/Goals: Pt IDs own risk factors & lifestyle modifications by Session 10, Verbalizes symptoms of angina & response by session 3., Pt independently manages and Other Additional Outcomes/Goals: Plan/Interventions: Assist Pt to ID & engage in lifestyle modification to reduce CVD risk, Instruct on individual risk factors, Review symptoms of angina & emergency actions, Review secondary diagnosis & identify educational needs. and Other see comment 30 day Reassessments:: Not Met 30 day Reassessments:: Not Met 30 day Reassessments:: Not Met 30 day Reassessments:: Not Met Final Reassessments:: Not Met Safety Referral to Physical Therapy: No Referral to [facility] Case Management: No Fall Risk Assessed:: Yes Assistive Devices:: Cane Exercise - Initial Assessment Visit Date of Eval: 12/04/24 (initial eval ) Mets: Pre-: >5 METS for 30 minutes by discharge Physician Prescribed Exercise Modalities: Treadmill, Rower, Schwinn Airdyne AD-7, SciFit Stepper, SciFit Pro-II Ergometer and SciFit Lateral [place] Frequency: 3x/week for 12 weeks [36 sessions] Intensity: 60-80% of age predicted maximum heart rate reserve Duration: 30 - 45 minutes Current METSs:: 3 Target Heart Rate:: 88-110 Resting Blood Pressure: 122/68 EKG Type: NSR Outcomes & Goals Goals:: Verbalizes understanding of THR, RPE & goal METS by session 6, Documents in home exercise log/reports 30 min aerobic 5 day/wk by DC, Demonstrates accurate pulse taking by DC and Other additional outcome/goals: see below Intervention & Plan Exercise Program Goals: Instruct on personal THR & RPE, Instruct on MET level & personal MET goal, Show patient to take own pulse /validate performance until accurate, Instruct on home exercise and Other additional plan/int Physical Activity Home Exercise Physical Activity - Home Exercise: Safe Exercise, Warm-up, Self-monitoring, Cool-Down, Home Exercise > 30 min Daily and Sitting Time <3 hours/daily Outcomes & Goals Outcomes/Goals: Demonstrates correct Warm-up/exercise Cool-Down (S3) if = 2.5 METs, Verbalizes symptoms of exercise intolerance by Session 3 (S3), Demonstrate safe equipment use (S3) & follows exercise prescrition (6) and Other: See below Intervention & Plan Plan/Intervention: Instruct warm-up & cool-down if exercising at > 2 METs, Instruct on symptoms of exercise intolerance & actions to take, Instruct & monitor on saf, Assess intial functional capacity & safety risk and Other See below Nutrition - Initial Assessment Program Goals Nutrition Program Goals Patient has diagnosis of Hyperlipidemia (ICD E78)?: No Visit Date of Eval: 12/04/24 (initial eval ) Cholesterol/Lipids (Other Core Measures) Determine presence & major risk factors that modify LDL goal: Hypertension or hypertensive medication, Low HDL cholesterol <40 mg/dL*, Family history of premature CHD in Male < 55 years: female <65 yearsFa and Age men > 45 years; women >/= 55 years Outcomes/Goals: Pt IDs own risk factors & lifestyle modifications by Session 10, Verbalizes symptoms of angina & response by session 3., Pt independently manages and Other Additional Outcomes/Goals: Intervention/Plan: Advocate for lipid panel cholesterol medication if applicable, Instruct on personal lipid levels & lipid goals/NCEP guidelines, Instruct on cholesterol and Other additional plan/int Diabetes (Other Core Measures) Diabetes Type: Diagnosis Type II ICD-10 E11 Insulin dependent injection/pump?: Yes Non-Insulin Dependent?: Yes Do you monitor your blood sugar at home?: Yes Referral to Diabetic Clinic:: No Weight Mgt (Other Care) Height: 5 ft 6 in Weight:: 250 lb BMI: 40.3 Diagnosis Overweight/Obesity BMI> 30% ICD-10 E66: Yes Diagnosis High BMI/Morbid Obesity BMI> 35% ICD-10 Z68: Yes Outcomes/Goals: Pt sets, maintains & shows weight loss goal & trend during rehab and Other additional outcomes/goals Intervention/Plan: Instruct on ideal BMI & set weight loss goal w/patient, Assist pt to ID & incorporate diet changes for weight loss by S9, Refer to Structured Weight Loss program as appropriate, Encourage goal of using 250-300dcal per session for weight loss and Other additional plan/interventions Healthy Eating Habits Will attend diet classes:: Yes Outcomes/Goals:: Consume diet rich in vegs,fruits,whole grain/high fiber,fish,lean meat, Limit sat/trans fats,cholesterol & added salts & sugars and Other additional outcome/goals: Intervention/Plan:: Assess current eating habits and Other Additional plan/interventions Education Gave educational materials for:: Signs & symptoms of hypoglycemia, Signs & symptoms of hyperglycemia, Relate diabetes to coronary artery disease and Healthy eating Core - Initial Assessment Visit Date of Eval: 12/04/24 (initial eval ) Medication Compliance Preventative Medication(s):: Aspirin, Clopidogrel/P2Y12 inhibit, Statin/lipid and Beta carlos H/O mental health issues: depression, anxiety, or addiction?: No Doesn?t believe in the benefits of treatment?: No Believes medications are unnecessary or harmful?: No Has a concern about medication side effects?: No Expresses concern over the cost of medications?: No Outcomes/Goals: Verbalizes medications,desired effect & common side effects @ DC, Pt self-reports following medication regimen, Keeps card in wallet w/medications listed by DC and Other additional outcome/goals: Interventions/plans: Instruct on medication effects & side effects, Review medication list w/patient every two weeks, Instruct importance of taking meds as ordered & assist problem solving and Other additional Tobacco Use Tobacco Use: Non-smoker Hypertension Hypertension Diagnosis:: Hypertension ICD-10 I10 Resting Blood Pressure:: 122/68 [place] [employer] Hypertension Guidelines Outcomes/Goals: Able to verbalize/achieve optimal blood pressure <130/80, Incorporates diet changes & exercise for blood pressure control by DC and Other additional outcomes/goals Interventions/plan: Instruct on optimal blood pressure, hypertension & medications, Instruct on effects of sodium, alcohol, stress, exercise &hypertension and Other additional plan/interventions Tobacco Cessation Referral Smoking Cessation Referral:: No Individual Education/Counseling:: No Education Schedule Given:: Yes Psychosocial - Initial Assess VIsit Date of Eval: 12/04/24 (initial eval) History of previous Mental disease:: No Target Goals Target Goals Psychosocial Test Tool Used:: Amandeepans Geovanni QOL Cardiac and PHQ-9 Questionnaire phq-9 Severity Referral to Behavioral Health PS - Interventions: Yes: Attend Stress Management Classes Outcomes/Goals: See list Psychosocial Outcomes/Goals:: ID's personal stressors & 2 strategies to manage stress by discharge and Other Additional outcome/goals: Intervention/Plan: See List Interventions/Plan:: Assess stressors,coping strategies & signs of derpression on admission, Instruct/assist pt to develop coping & personal stress Mgt strategies, Refer to Behavioral Health if appropriate, Refer to Physician if appropriate, Instruct patient to recognize signs & symptoms of depression, Instruct patient to recog and Other additional plan/intervention Patient Health Questionnaire PHQ-9 Screening Initial Assessment: 1. Little interest or pleasure in doing things: Not at all 2. Feeling down, depressed, or hopeless: Not at all 3. Trouble falling or staying asleep, or sleeping too much: Not at all 4. Feeling tired or having little energy: Not at all 5. Poor appetite or overeating: Nearly every day 6. Feeling bad about yourself -- or that you are a failure or have let yourself or your family down: Not at all 7. Trouble concentrating on things, such as reading the newspaper or watching television: Not at all 8. Moving or speaking so slowly that other people could have noticed. Or the opposite - being so fidgety or restless that you have been moving around a lot more than usual: Not at all 9. Thoughts that you would be better off , or of hurting yourself in some way: Not at all How difficult have these problems made it for you to do your work, take care of things at home, or get along with other people?: Not difficult at all Total Score: 3 BREANNA-Q SV Test Statements CAD is a disease of the arteries in the heart: False Examples of risk factors for heart disease: True Angina is chest pain or discomfort: False The benefits of resistance training include: True Eating more meat and dairy products: True Anti-platelet medications such as aspirin are important: True The only effective way to manage stress: True An exercise warm-up slowly increases heart rate: True Prepared, processed foods usually have high sodium: True Depression is common after a heart attack: True The statin medications lower cholesterol: True To control blood pressure, lower the amount of sodium: True If someone gets chest discomfort during walking: False Transfats are partially hydrogenated vegetable oils: True Sleep apnea that is not treated increases the risk: True To control cholesterol, one should become a vegetarian: False Someone knows if he/she is exercising at the right level: True Diabetes cannot be prevented with exercise & health eating: True Stress is a large risk for heart attack: True A diet that can help lower blood pressure is rich in: True Total Score Total Correct Responses: 15 Self-Efficacy 6-Item Scale Initial Assessment: We would like to know how confident you are in doing certain activities. Please select your confidence level for: Fatigue Select Number: 9 Physical Discomfort or Pain Select Number: 8 Emotional Distress Select Number: 8 Other Symptoms or Health Problems Select Number: 8 Different Tasks and Activities Select Number: 9 Medication Select Number: 9 Total Score:: 8 Nutrition Survey Nutrition Survey Instructions Scoring Instructions Nutrition Survey Initial: Have you lost >10 lbs over the past 2 months without trying?: No Are you following a special diet at home for diabetes, low fat, or low salt?: No Are you interested in meeting with a dietitian for help understanding your diet?: No Do you eat less than 3 meals a day?: No Do you eat fatty meats (isaac, sausage, ribs, etc), fried foods, desserts, large amounts of salad dressings, margarine, butter, or cheese most days?: No Do you have food allergies? [Enter types in comment field]: Yes Do you eat in restaurants more than 3 times a week?: No Do you season food with salt, seasoning salt, or garlic salt?: No Do you used canned, boxed, frozen meals, or soups, seasoning packets?: Yes Total Score:: 2 Exercise - 30-day Assessment Physician Prescribed Exercise Modalities: Treadmill, Rower, Schwinn Airdyne AD-7, SciFit Stepper, SciFit Pro-II Ergometer and SciFit Lateral [place] Exercise - 60-day Assessment Physician Prescribed Exercise Modalities: Treadmill, Rower, Schwinn Airdyne AD-7, SciFit Stepper, SciFit Pro-II Ergometer and SciFit Lateral [place] Exercise - 90-day Assessment Physician Prescribed Exercise Modalities: Treadmill, Rower, Schwinn Airdyne AD-7, SciFit Stepper, SciFit Pro-II Ergometer and SciFit Lateral Backend Python Developer Exercise - Final/Discharge Physician Prescribed Exercise Modalities: Treadmill, Sophie Parada AD-7, SciFit Stepper, SciFit Pro-II Ergometer and SciFit Lateral [place] Frequency: 3x/week for 12 weeks [36 sessions] Intensity: 60-80% of age predicted maximum heart rate reserve Current METSs:: 3 Target Heart Rate:: 88-110 Nutrition - 30-Day Assessment Weight Mgt (Other Care) Height: 5 ft 6 in Weight:: 250 lb BMI: 40.3 Nutrition - 60-Day Assessment Weight Mgt (Other Care) Height: 5 ft 6 in Weight:: 250 lb BMI: 40.3 Core - Final Assessment Hypertension Resting Blood Pressure:: 122/68 [place] [employer] Hypertension Guidelines Core - 60-Day Assessment Hypertension Resting Blood Pressure:: 122/68 [place] [employer] Hypertension Guidelines Psychosocial - 30-Day Assess Target Goals Target Goals Referral to Behavioral Health PS - Interventions: Yes: Attend Stress Management Classes Psychosocial - 60-Day Assess Target Goals Target Goals Referral to Behavioral Health PS - Interventions: Yes: Attend Stress Management Classes Psychosocial - 90-Day Assess Target Goals Target Goals Referral to Behavioral Health PS - Interventions: Yes: Attend Stress Management Classes Psychosocial - Final Assessmen Target Goals Target Goals Referral to Behavioral Health PS - Interventions: Yes: Attend Stress Management Classes Nutrition - 90-Day Assessment Weight Mgt (Other Care) Height: 5 ft 6 in Weight:: 250 lb BMI: 40.3 Nutrition - Final Assessment Program Goals Patient has diagnosis of Hyperlipidemia (ICD E78)?: No Weight Mgt (Other Care) Height: 5 ft 6 in Weight:: 250 lb BMI: 40.3
[2024-12-04 08:20] VITALS: PULSE 84; O2SAT 98
[2024-12-04 08:25] VITALS: BP 122/68
[2024-12-04 08:53] VITALS: BP 122/68; BMI 40.3
[2024-12-04 08:59] VITALS: BP 122/68
[2024-12-04 09:00] VITALS: BMI 40.3
== END | disposition home or self-care (01) ==
PROVIDERS: PCP Family Medicine; Referring Provider Internal Medicine Cardiovascular Disease; Visit Provider Internal Medicine Cardiovascular Disease
DX: I25.10 Atherosclerotic heart disease of native coronary artery without angina pectoris (principal); I25.2 Old myocardial infarction

== ENCOUNTER 2024-12-21 11:15 | Outpatient (RCR) | payer MEDICARE, OTHER, SELFPAY ==
[2024-12-04 08:53] VITALS: BMI 40.3
== END 2024-12-21 23:59 ==
LOC: CR 11:15
PROVIDERS: PCP Family Medicine; Referring Provider Internal Medicine Cardiovascular Disease; Visit Provider Internal Medicine Cardiovascular Disease
DX: I25.10 Atherosclerotic heart disease of native coronary artery without angina pectoris (principal); I21.3 ST elevation (STEMI) myocardial infarction of unspecified site; I21.02 ST elevation (STEMI) myocardial infarction involving left anterior descending coronary artery
CPT/HCPCS: 93798

== ENCOUNTER 2024-12-23 15:05 | Emergency (ER) | payer MEDICARE, OTHER, SELFPAY ==
[2024-12-04 08:53] VITALS: BMI 40.3
[2024-12-23 15:05] VITALS: BP 172/79; PULSE 85; RESP 24; TEMP 36.2; O2SAT 100
--- NOTE | 2024-12-23 15:26 | VDLE_ITS ---
Reason For Study Reason For Study: RLE Swelling RIGHT GSV is normal. CFV is compressible, spontaneous, phasic, competent and demonstrates normal augmentation. FV is compressible, spontaneous, phasic, competent and demonstrates normal augmentation. POP V is compressible, spontaneous, phasic, competent and demonstrates normal augmentation. T/P Trunk is compressible. PTV is compressible. RT PerV is compressible. Procedure This is a venous duplex using B-mode, color flow and spectral Doppler. Exam performed in department. The exam was diagnostic. A preliminary report was called and/or faxed to Dr. Melara. VL/Venous Duplex US, Unilateral Interpretation Summary Deep veins of the right lower extremity are patent and compressible segmentally . There is no evidence of right lower extremity deep vein thrombosis. The right great saphenous vein appears patent a nd compressible segmentally. Ordering Physician: Niles Melara Referring Physician: Matilde Ontiveros Performed By: Christoph Nichols RVT
--- NOTE | 2024-12-23 15:59 | EX.ED.DYSGE1 ---
HPI History of Present Illness Chief Complaint: Lower Extremity Injury [facility] Medical History H/O Alexis thyroiditis Type 2 diabetes mellitus Breast pain, left Hemorrhoid Breast cancer screening Diabetes mellitus type 1.5 Osteoarthritis Morbid obesity with BMI of 40.0-44.9, adult Osteopenia Left upper arm pain Left shoulder pain Intertriginous dermatitis associated with moisture Chronic back pain Easy bruising Walker as ambulation aid Ambulates with cane Pulmonary embolism DVT (deep venous thrombosis) Syncope Gastric reflux Chronic cough History of stress test Hypertension History of anesthesia problem Degenerative arthritis of hip Hypertension Polyneuropathy Spinal stenosis of lumbar region Cataract fragments in right eye following surgery Herniated nucleus pulposus, L3-4 left Cubital tunnel syndrome on left Impaired gait and mobility Chronic neck pain Cervical spinal stenosis Carpal tunnel syndrome, left Cervical radiculopathy at C8 Glaucoma DM neuropathies Liver hemangioma Ulcer Alexis's thyroiditis Rheumatoid arthritis Lupus IBS (irritable bowel syndrome) Gout Cataracts, bilateral History of breast lump History of UTI Anemia Seasonal allergies Home Medications ?Medication ?Instructions ?Recorded ?Last Taken ?Type cholecalciferol (vitamin D3) 10 25 mcg PO DAILY Check with primary 07/06/21 Unknown History mcg (400 unit) capsule doctor gabapentin 600 mg tablet 600 mg PO DAILY Check with primary 07/06/21 Unknown History doctor vitamin B complex (B 1 tab PO DAILY supplement 09/18/21 Unknown History Complex-Vitamin B12 tablet) multivitamin 1 tab PO DAILY supplement 08/03/22 Unknown History cranberry extract 250 mg tablet 1 mg PO DAILY Check with primary 08/20/22 Unknown History doctor circaid wrap #2 ea 09/03/22 Unknown Rx acetaminophen 500 mg tablet 1,000 mg PO Q6 PRN 11/28/22 Unknown History omeprazole 20 mg capsule,delayed 40 mg PO DAILY PRN reflux 11/28/22 Unknown History release Handicap Placard #1 ea 12/10/22 Unknown Rx blood-glucose meter (OneTouch #1 ea 01/18/23 Unknown Rx Ultra2 Meter kit) Electronic blood pressure cuff #1 ea 05/20/23 Unknown Rx diclofenac sodium 1 % topical gel 4 g topical BID PRN Muscle/joint 06/18/23 Unknown Rx pain #100 grams blood sugar diagnostic (OneTouch #180 ea 08/05/23 Unknown Rx Ultra Test strips) lancets #180 ea 08/05/23 Unknown Rx pen needle, diabetic 32 gauge x #150 ea 09/12/23 Unknown Rx 32 (BD Ultra-Fine Nan Pen Needle) insulin glargine 100 unit/mL (3 35 unit subcut DAILY DM 11/26/24 Unknown History mL) subcutaneous pen (Lantus Solostar U-100 Insulin) insulin lispro 100 unit/mL 10 unit subcut TID diabetes 11/26/24 Unknown History subcutaneous cartridge (Humalog U-100 Insulin) methenamine hippurate 1 gram tablet 1 g PO Q12H 11/26/24 Unknown History probenecid 500 mg tablet 250 mg PO Q12H 11/26/24 Unknown History aspirin 81 mg tablet,delayed 81 mg PO DAILY@0800 #30 tabs 11/28/24 Unknown Rx release atorvastatin 80 mg tablet 80 mg PO QHS #30 tabs 11/28/24 Unknown Rx carvedilol 3.125 mg tablet 3.125 mg PO BID #60 tabs 11/28/24 Unknown Rx clopidogrel 75 mg tablet 75 mg PO DAILY #30 tabs 11/28/24 Unknown Rx dapagliflozin propanediol 10 mg 10 mg PO DAILY #30 tabs 11/28/24 Unknown Rx tablet (Farxiga) losartan 25 mg tablet 25 mg PO DAILY #30 tabs 11/28/24 Unknown Rx Allergy/AdvReac Type Severity Reaction Status Date / Time aspirin Allergy Upset Verified 12/23/24 15:05 Stomach capsaicin Allergy Rash Verified 12/23/24 15:05 chlorhexidine Allergy Rash Verified 12/23/24 15:05 codeine Allergy Vomiting Verified 12/23/24 15:05 empagliflozin (From Allergy Other Verified 12/23/24 15:05 Jardiance) erythromycin base Allergy Other Verified 12/23/24 15:05 hydrocodone (From Malcom) Allergy Other Verified 12/23/24 15:05 Sulfa (Sulfonamide Allergy Rash Verified 12/23/24 15:05 Antibiotics) tramadol Allergy Other Verified 12/23/24 15:05 trimethoprim Allergy PT UNSURE Verified 12/23/24 15:05 OF REACTION baclofen AdvReac Severe nightmares Verified 12/23/24 15:05 adhesive tape AdvReac Rash Verified 12/23/24 15:05 buprenorphine AdvReac Rash Verified 12/23/24 15:05 carbidopa (From Sinemet) AdvReac Rash Verified 12/23/24 15:05 cat dander AdvReac Other Verified 12/23/24 15:05 cigarette smoke AdvReac Other Verified 12/23/24 15:05 ciprofloxacin AdvReac Rash Verified 12/23/24 15:05 cyclobenzaprine AdvReac Nausea Verified 12/23/24 15:05 Environmental Allergies: AdvReac Other Verified 12/23/24 15:05 Uncoded levodopa (From Sinemet) AdvReac Other Verified 12/23/24 15:05 meperidine AdvReac PT UNSURE Verified 12/23/24 15:05 OF REACTION sulfamethoxazole (From AdvReac Nausea Verified 12/23/24 15:05 Septra) Family History Grandmother Cerebral aneurysm CVA (cerebral vascular accident) Brother CVA (cerebral vascular accident) Cancer Mother CVA (cerebral vascular accident) Father Cancer Other Diabetes Heart disease Hypertension Myocardial infarction Surgical History Hx of laminectomy History of cataract removal with insertion of prosthetic lens H/O: hysterectomy History of ankle surgery Hx of cholecystectomy History of total right knee replacement History of lumbar laminectomy History of lumbar spinal fusion Hx of tonsillectomy Social History household members: spouse housing: house Smoking Status: Never smoker Electronic Cigarette Use: not used second hand exposure: No alcohol intake: never substance use type: does not use what type of physical activity do you participate in: none sharla/hindu: None seatbelt use: always EXAM Physical Exam Const Vital Signs: 12/23/24 15:05 Temperature 97.2 F L Temperature Source Temporal Pulse Rate 85 Respiratory Rate 24 H Blood Pressure 172/79 H Blood Pressure Mean 110 Pulse Ox 100 Oxygen Delivery Method Room Air MDM MDM MDM Narrative Medical decision making narrative: HISTORY OF PRESENT ILLNESS: Chief complaint: Leg pain 74-year-old female presents with right calf pain. No recent inciting event. Patient denies any falls. She notes pain became severe in her right calf earlier today. Notes pain and swelling. Notes history of DVT. Denies being on anticoagulant but notes taking Plavix and aspirin. Denies any discoloration, numbness, tingling. Denies rash, fever. The pain is constant. Is worse with movement. She denies any falls or other trauma. REVIEW OF SYSTEMS: Pertinent positives: Leg pain Pertinent negatives: Chest pain, shortness of breath, syncope PHYSICAL EXAM: Nursing triage notes reviewed, Vital signs reviewed Constitutional: please see mdm HENT: MMM Eyes: Pupils equal round and reactive to light, Extraocular muscles intact Neck: No stridor, no JVD, full neck ROM Lungs: Clear to auscultation, No wheezing or rales. No increased work of breathing, no conversational dyspnea, no accessory muscle use, no nasal flaring. No respiratory distress noted Heart: Regular rate and rhythm, No murmurs, No rubs and No gallops, 2+ distal pulses (radial, femoral, posterior tibial) in all extremities Abdomen: Soft, there is no tenderness, rigidity, rebound or guarding, no obvious peritoneal signs, no palpable pulsatile abdominal masses, no auscultated abdominal bruit : No CVAT Extremities: No edema Neuro: Skin: No rash or lesions noted MEDICAL DECISION MAKING: Chief Complaint: please see HPI External records reviewed: reviewed prior images. Factors affecting care: GERD, hypertension, diabetes, CT Social determinants of health: none History obtained from others: none Consults: none [facility] Narrative: The patient was initially hemodynamically stable, afebrile and nontoxic-appearing. Exam without obvious signs of infection, she had a warm well-perfused right lower extremity. She did have some calf tenderness. She had no evidence of discoloration. She had intact range of motion ankle knee and hip. She is able to stand without significant difficulty. I considered the following differential diagnosis: DVT, calf strain, arterial occlusion, cellulitis, necrotizing fasciitis, sciatic ALL IMAGES (IF OBTAINED) HAVE BEEN PERSONALLY REVIEWED AND INTERPRETED BY MYSELF. DVT ultrasound was read as negative. Exam without evidence of infectious, arterial or bony injury could be a calf strain could be sciatica. Offered anti-inflammatories however patient stated she cannot tolerate these in the past due to various issues including GI issues. She states he has diabetes and would not want increased risk of hyperglycemia with a steroid. I further recommended Tylenol. Strict return precautions were discussed. The patient and/or family, caregivers express understanding. The patient and/or family, caregivers agrees with the plan. Shared decision making: I will have a discussion with the patient and or visitors regarding risk/benefits of further testing or admission. They will be made aware of of the risk/benefits inherent in this decision they will be given the opportunity to voice understanding. Total critical care time today provided was at least 0 minutes. This excludes separately billable procedures. Critical care time (if documented) is secondary to the patient having high probability of clinically significant/life threatening deterioration in the patient's condition which required my urgent intervention. Impression: 1. Acute leg pain 2. History of DVT Dispo: Discharge home This note was generated with Boxer dictation software. It may contain incorrect words, spelling, and punctuation that were not noted in review of the chart prior to signing. Radiography Diagnostic Testing: Clinical Impression(s) from Imaging Studies Venous Doppler Study 12/23/24 15:26 Interpretation Summary Deep veins of the right lower extremity are patent and compressible segmentally. There is no evidence of right lower extremity deep vein thrombosis. The right great saphenous vein appears patent and compressible segmentally. Ordering Physician: Niles Melara Referring Physician: Matilde Ontiveros Performed By: Christoph Nichols RVT Discharge Plan Triage Chief Complaint: Lower Extremity Injury ED Provider: Niles Melara Dx/Rx/DC Orders Clinical Impression: Acute leg pain Instructions: ED RICE Prescriptions: No Action gabapentin 600 mg tablet 600 mg PO DAILY cholecalciferol (vitamin D3) 10 mcg (400 unit) capsule 25 mcg PO DAILY cranberry extract 250 mg tablet 1 mg PO DAILY Patient Comments: 30,000 omeprazole 20 mg capsule,delayed release(DR/EC) 40 mg PO DAILY PRN (Reason: reflux) vitamin B complex [B Complex-Vitamin B12] Tablet 1 tab PO DAILY acetaminophen 500 mg tablet 1,000 mg PO Q6 PRN (DME) Handicap Placard See Rx Instructions .ROUTE .MEDSUPPLY Qty: 1 0RF Rx Instructions: As directed, length of time 3 years (DME) circaid wrap large See Rx Instructions .Route .MEDSUPPLY Qty: 2 2RF Rx Instructions: Wear daily, remove at bedtime (DME) Electronic blood pressure cuff See Rx Instructions .Route .MEDSUPPLY Qty: 1 0RF Rx Instructions: As directed multivitamin Tablet 1 tab PO DAILY methenamine hippurate 1 gram tablet 1 g PO Q12H probenecid 500 mg tablet 250 mg PO Q12H Patient Comments: Per Pts Pharmacy pt has not yet filled Humalog U-100 Insulin 100 unit/mL cartridge 10 unit subcut TID Rx Instructions: plus sliding scale insulin glargine [Lantus Solostar U-100 Insulin] 100 unit/mL (3 mL) insulin pen 35 unit subcut DAILY aspirin 81 mg Tablet,Delayed Release (Dr/Ec) 81 mg PO DAILY@0800 Qty: 30 3RF atorvastatin 80 mg Tablet 80 mg PO QHS Qty: 30 2RF clopidogrel 75 mg Tablet 75 mg PO DAILY Qty: 30 3RF carvedilol 3.125 mg Tablet 3.125 mg PO BID Qty: 60 2RF dapagliflozin propanediol [Farxiga] 10 mg Tablet 10 mg PO DAILY Qty: 30 2RF losartan 25 mg Tablet 25 mg PO DAILY Qty: 30 2RF (DME) blood-glucose meter [OneTouch Ultra2 Meter] Kit See Rx Instructions .Route Qty: 1 0RF Rx Instructions: As directed diclofenac sodium 1 % gel 4 g topical BID PRN (Reason: Muscle/joint pain) Qty: 100 6RF (DME) OneTouch Ultra Test Strip See Rx Instructions .ROUTE .MEDSUPPLY Qty: 180 6RF Rx Instructions: 6x/day (DME) lancets Misc See Rx Instructions .ROUTE .MEDSUPPLY Qty: 180 6RF Rx Instructions: 4x/day (DME) pen needle, diabetic [BD Ultra-Fine Nan Pen Needle] 32 gauge x 5/32 needle See Rx Instructions .ROUTE .MEDSUPPLY Qty: 150 6RF Rx Instructions: 5x/day Primary Care Provider: Matilde Ontiveros Referrals: Matilde Ontiveros DO [Primary Care Provider] - Activity Restrictions/Additional Instructions: Thank you for trusting us with your care today! Your ultrasound was negative for evidence of a deep vein thrombosis (blood clot) Please take Tylenol (2 pills, 650 mg) every 6 hours as needed for pain and fever control. Please return to the emergency department if your symptoms change or worsen. Specifically develop chest pain or shortness of breath or if you lose consciousness. If you notice decreased movement or sensation in your leg. If you notice red or dark discoloration. Please follow with your primary care physician for further outpatient evaluation and management. Print Language: Kinyarwanda Disposition Disposition: Home, Self Care Discharge Date/Time: 12/23/24 16:44
== END 2024-12-23 16:44 | disposition home or self-care (01) ==
LOC: ED 16:24
PROVIDERS: Emergency Provider Emergency Medicine; PCP Family Medicine; Visit Provider Emergency Medicine
DX: M79.661 Pain in right lower leg (principal); M06.9 Rheumatoid arthritis, unspecified; E11.9 Type 2 diabetes mellitus without complications; I10 Essential (primary) hypertension; K21.9 Gastro-esophageal reflux disease without esophagitis; I25.2 Old myocardial infarction; Z79.02 Long term (current) use of antithrombotics/antiplatelets; Z79.82 Long term (current) use of aspirin; Z79.899 Other long term (current) drug therapy; Z86.718 Personal history of other venous thrombosis and embolism
CPT/HCPCS: 93971; 99282

== ENCOUNTER 2025-01-20 11:15 | Outpatient (RCR) | payer MEDICARE, OTHER, SELFPAY ==
[2024-12-04 08:53] VITALS: BMI 40.3
--- NOTE | 2025-01-01 11:08 | CR.ITP_ITS ---
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 and No: Referral to Physician if PHQ-9 if score is 5-9: Patient Health Questionnaire PHQ-9 Screening 30-Day Re-eval Assessment: 1. Little interest or pleasure in doing things: Not at all 2. Feeling down, depressed, or hopeless: Not at all 3. Trouble falling or staying asleep, or sleeping too much: Not at all 4. Feeling tired or having little energy: Not at all 5. Poor appetite or overeating: Nearly every day 6. Feeling bad about yourself -- or that you are a failure or have let yourself or your family down: Not at all 7. Trouble concentrating on things, such as reading the newspaper or watching television: Not at all 8. Moving or speaking so slowly that other people could have noticed. Or the opposite - being so fidgety or restless that you have been moving around a lot more than usual: Not at all 9. Thoughts that you would be better off , or of hurting yourself in some way: Not at all How difficult have these problems made it for you to do your work, take care of things at home, or get along with other people?: Not difficult at all Total Score: 3 Self-Efficacy 6-Item Scale 30-Day Re-eval Assessment: We would like to know how confident you are in doing certain activities. Please select your confidence level for: Fatigue Select Number: 9 Physical Discomfort or Pain Select Number: 8 Emotional Distress Select Number: 8 Other Symptoms or Health Problems Select Number: 8 Different Tasks and Activities Select Number: 9 Medication Select Number: 9 Total Score:: 8 Nutrition Survey Nutrition Survey Instructions Scoring Instructions Exercise - 30-day Assessment Visit Date of Eval: 01/01/25 Session #:: 10 Physician Prescribed Exercise Modalities: Treadmill, Rower, Schwinn Airdyne AD-7, SciFit Stepper, SciFit Pro- II Ergometer and SciFit Lateral [place] Frequency: 3x/week for 12 weeks [36 sessions] Intensity: 60-80% of age predicted maximum heart rate reserve Duration: 30 - 45 minutes METs - Progression 0.5-1.0 weekly:: 0.05-1.0 Current METSs:: 2.6 Target Heart Rate:: 88-110 Target RPE 12-16:: 12-16 Current RPE:: 12 Maximum Excercise HR:: 105 Resting Blood Pressure: 120/60 Maximum Exercise Blood Pressure: 160/64 EKG Type: NSR to ST with rare pac/pvc Current Physical Activity or Exercising minutes: 32 Outcomes & Goals Goals:: Verbalizes understanding of THR, RPE & goal METS by session 6, Documents in home exercise log/reports 30 min aerobic 5 day/wk by DC and Demonstrates accurate pulse taking by DC Intervention & Plan Exercise Program Goals: Instruct on personal THR & RPE, Instruct on MET level & personal MET goal, Show patient to take own pulse /validate performance until accurate and Instruct on home exercise 30-day Reassessments 30 day Reassessments:: Not Met Reassessment Notes & Comments:: Pt continues to work on increasing her MET goals, pt able to report accurate RPE Physical Activity Home Exercise Physical Activity - Home Exercise: Safe Exercise, Warm-up, Self-monitoring, Cool-Down, Home Exercise > 30 min Daily and Sitting Time <3 hours/daily Outcomes & Goals Outcomes/Goals: Demonstrates correct Warm-up/exercise Cool-Down (S3) if = 2.5 METs, Verbalizes symptoms of exercise intolerance by Session 3 (S3) and Demonstrate safe equipment use (S3) & follows exercise prescrition (6) Intervention & Plan Plan/Intervention: Instruct warm-up & cool-down if exercising at > 2 METs, Instruct on symptoms of exercise intolerance & actions to take, Instruct & monitor on saf and Assess intial functional capacity & safety risk 30-day Reassessments 30 day Reassessments:: Progressing Reassessment Notes & Comments:: Pt able to warm up and cool down appropriately, pt able to verbalize symptoms of exercise intolerance and actions to take if occurs Exercise - 60-day Assessment Physician Prescribed Exercise Modalities: Treadmill, Rower, Schwinn Airdyne AD-7, SciFit Stepper, SciFit Pro- II Ergometer and SciFit Lateral Deputy Fire Marshal Exercise - 90-day Assessment Physician Prescribed Exercise Modalities: Treadmill, Rower, Schwinn Airdyne AD-7, SciFit Stepper, SciFit Pro- II Ergometer and SciFit Lateral [place] Exercise - Final/Discharge Physician Prescribed Exercise Modalities: Treadmill, Rower, Schwinn Airdyne AD-7, SciFit Stepper, SciFit Pro- II Ergometer and SciFit Lateral [place] Nutrition - 30-Day Assessment Program Goals Nutrition Program Goals Patient has diagnosis of Hyperlipidemia (ICD E78)?: No Visit Date of Eval: 01/01/25 Session #:: 10 Diabetes (Other Core Measures) Diabetes Type: Diagnosis Type II ICD-10 E11 Fasting blood glucose:: 166 Hgb A1C (4.2 -6.3): 6.8 Insulin dependent injection/pump?: Yes Non-Insulin Dependent?: Yes Do you monitor your blood sugar at home?: Yes Referral to Diabetic Clinic:: No 30-day Reassessments:: Progressing Reassessment Notes & Comments:: PT taking medications as prescribed, monitoring BS at home, able to recognize s/s of low BS Weight Mgt (Other Care) Not Applicable: Yes Height: 5 ft 6 in Weight:: 250 lb BMI: 40.3 Diagnosis Overweight/Obesity BMI> 30% ICD-10 E66: Yes Diagnosis High BMI/Morbid Obesity BMI> 35% ICD-10 Z68: Yes Outcomes/Goals: Pt sets, maintains & shows weight loss goal & trend during rehab Intervention/Plan: Instruct on ideal BMI & set weight loss goal w/patient, Assist pt to ID & incorporate diet changes for weight loss by S9, Refer to Structured Weight Loss program as appropriate and Encourage goal of using 250-300dcal per session for weight loss 30 day Reassessments:: Progressing Reassessment Notes & Comments:: Pt attending healthy lifestyle classes and understands importance of an active lifestyle to promote weight loss Healthy Eating Habits Will attend diet classes:: Yes Outcomes/Goals:: Consume diet rich in vegs,fruits,whole grain/high fiber,fish,lean meat and Limit sat/trans fats,cholesterol & added salts & sugars Intervention/Plan:: Assess current eating habits 30-day Reassessments:: Progressing Reassessment Notes & Comments:: Pt attending diet and nutritional classes Education Gave educational materials for:: Signs & symptoms of hypoglycemia, Signs & symptoms of hyperglycemia, Relate diabetes to coronary artery disease and Healthy eating Nutrition - 60-Day Assessment Weight Mgt (Other Care) Height: 5 ft 6 in Weight:: 250 lb BMI: 40.3 Core - 30-Day Assessment Visit Date of Eval: 01/01/25 Session #:: 10 Medication Compliance Preventative Medication(s):: Aspirin, Clopidogrel/P2Y12 inhibit, Statin/lipid, Beta carlos and ARB (Angiotensi Rcap) H/O mental health issues: depression, anxiety, or addiction?: No Doesn?t believe in the benefits of treatment?: No Believes medications are unnecessary or harmful?: No Has a concern about medication side effects?: No Expresses concern over the cost of medications?: No Outcomes/Goals: Verbalizes medications,desired effect & common side effects @ DC, Pt self-reports following medication regimen and Keeps card in wallet w/medications listed by DC Interventions/plans: Instruct on medication effects & side effects, Review medication list w/patient every two weeks and Instruct importance of taking meds as ordered & assist problem solving 30-day Reassessments:: Progressing Reassessment Notes & Comments:: Pt taking medications as prescribed Tobacco Use Tobacco Use: Non-smoker Hypertension Hypertension Diagnosis:: Hypertension ICD-10 I10 Resting Blood Pressure:: 120/60 [place] [employer] Hypertension Guidelines Peak Exercise Blood Pressure:: 160/64 Outcomes/Goals: Able to verbalize/achieve optimal blood pressure <130/80 and Incorporates diet changes & exercise for blood pressure control by DC Interventions/plan: Instruct on optimal blood pressure, hypertension & medications and Instruct on effects of sodium, alcohol, stress, exercise &hypertension 30 day Reassessments:: Progressing Reassessment Notes & Comments:: Pt maintaining BP under 130/80 and taking BP medications as prescribed Tobacco Cessation Referral Smoking Cessation Referral:: No Individual Education/Counseling:: No Education Schedule Given:: Yes Psychosocial - 30-Day Assess VIsit Date of Eval: 01/01/25 Session #:: 10 History of previous Mental disease:: No History of Emotional Disorders: None Target Goals Target Goals Psychosocial Test Tool Used:: PHQ-9 Questionnaire phq-9 Severity See PHQ-9 Score: 3 Referral to Behavioral Health PS - Interventions: Yes: Attend Stress Management Classes and No: Referral to Behavioral Health if PHQ-9 score >9:, No: Referral to [facility] and No: Referral to Physician if PHQ-9 if score is 5-9: Outcomes/Goals: See list Psychosocial Outcomes/Goals:: ID's personal stressors & 2 strategies to manage stress by discharge Intervention/Plan: See List Interventions/Plan:: Assess stressors,coping strategies & signs of derpression on admission, Instruct/assist pt to develop coping & personal stress Mgt strategies, Refer to Behavioral Health if appropriate, Refer to Physician if appropriate and Instruct patient to recognize signs & symptoms of depression 30-day Reassessments: 30 day Reassessments:: Progressing Reassessment Notes & Comments:: Pt working to assess stressors and apply appropriate strategies to manage stress Psychosocial - 60-Day Assess Target Goals Target Goals Referral to Behavioral Health PS - Interventions: Yes: Attend Stress Management Classes and No: Referral to Behavioral Health if PHQ-9 score >9:, No: Referral to [facility] and No: Referral to Physician if PHQ-9 if score is 5-9: Outcomes/Goals: See list Psychosocial Outcomes/Goals:: ID's personal stressors & 2 strategies to manage stress by discharge Psychosocial - 90-Day Assess Target Goals Target Goals Referral to Behavioral Health PS - Interventions: Yes: Attend Stress Management Classes and No: Referral to Behavioral Health if PHQ-9 score >9:, No: Referral to [facility] and No: Referral to Physician if PHQ-9 if score is 5-9: Psychosocial - Final Assessmen Target Goals Target Goals Referral to Behavioral Health PS - Interventions: Yes: Attend Stress Management Classes and No: Referral to Behavioral Health if PHQ-9 score >9:, No: Referral to [facility] and No: Referral to Physician if PHQ-9 if score is 5-9: Nutrition - 90-Day Assessment Weight Mgt (Other Care) Height: 5 ft 6 in Weight:: 250 lb BMI: 40.3 Nutrition - Final Assessment Weight Mgt (Other Care) Height: 5 ft 6 in Weight:: 250 lb BMI: 40.3
[2025-01-01 11:20] VITALS: BP 120/60
[2025-01-01 11:35] VITALS: BP 120/60; BMI 40.3
== END 2025-01-20 23:59 ==
LOC: CR 11:15
PROVIDERS: PCP Family Medicine; Referring Provider Internal Medicine Cardiovascular Disease; Visit Provider Internal Medicine Cardiovascular Disease
DX: I25.10 Atherosclerotic heart disease of native coronary artery without angina pectoris (principal); I21.3 ST elevation (STEMI) myocardial infarction of unspecified site; I21.02 ST elevation (STEMI) myocardial infarction involving left anterior descending coronary artery
CPT/HCPCS: 93798

== ENCOUNTER 2025-02-19 11:15 | Outpatient (RCR) | payer MEDICARE, OTHER, SELFPAY ==
[2025-01-01 11:35] VITALS: BMI 40.3
[2025-01-21 00:42] VITALS: BP 120/60
--- NOTE | 2025-01-28 08:54 | PCM.CR.ITP ---
Exercise - Initial Assessment Physician Prescribed Exercise Modalities: Treadmill and SciFit Stepper Nutrition - Initial Assessment Weight Mgt (Other Care) Height: 5 ft 6 in Weight:: 250 lb BMI: 40.3 Core - Initial Assessment Hypertension Resting Blood Pressure:: 130/60 [place] [employer] Hypertension Guidelines Psychosocial - Initial Assess Target Goals Target Goals Referral to Behavioral Health PS - Interventions: Yes: Attend Stress Management Classes Patient Health Questionnaire PHQ-9 Screening 60-Day Re-eval Assessment: 1. Little interest or pleasure in doing things: Not at all 2. Feeling down, depressed, or hopeless: Not at all 3. Trouble falling or staying asleep, or sleeping too much: Not at all 4. Feeling tired or having little energy: Not at all 5. Poor appetite or overeating: Nearly every day 6. Feeling bad about yourself -- or that you are a failure or have let yourself or your family down: Not at all 7. Trouble concentrating on things, such as reading the newspaper or watching television: Not at all 8. Moving or speaking so slowly that other people could have noticed. Or the opposite - being so fidgety or restless that you have been moving around a lot more than usual: Not at all 9. Thoughts that you would be better off , or of hurting yourself in some way: Not at all How difficult have these problems made it for you to do your work, take care of things at home, or get along with other people?: Not difficult at all Total Score: 3 Self-Efficacy 6-Item Scale 60-Day Re-eval Assessment: We would like to know how confident you are in doing certain activities. Please select your confidence level for: Fatigue Select Number: 9 Physical Discomfort or Pain Select Number: 8 Emotional Distress Select Number: 8 Other Symptoms or Health Problems Select Number: 8 Different Tasks and Activities Select Number: 9 Medication Select Number: 9 Total Score:: 8 Nutrition Survey Nutrition Survey Instructions Scoring Instructions Exercise - 30-day Assessment Physician Prescribed Exercise Modalities: Treadmill and SciFit Stepper Exercise - 60-day Assessment Visit Date of Eval: 01/28/25 Session #:: 19 Physician Prescribed Exercise Modalities: Treadmill and SciFit Stepper Frequency: 3x/week for 12 weeks [36 sessions] Intensity: 60-80% of age predicted maximum heart rate reserve Duration: 30 - 45 minutes Current METSs:: 2.9 Target Heart Rate:: 88-110 Current RPE:: 12 Maximum Excercise HR:: 111 Resting Blood Pressure: 132/64 Maximum Exercise Blood Pressure: 112/58 EKG Type: NSR to ST with rare pvc and pac Outcomes & Goals Goals:: Verbalizes understanding of THR, RPE & goal METS by session 6, Documents in home exercise log/reports 30 min aerobic 5 day/wk by DC, Demonstrates accurate pulse taking by DC and Other additional outcome/goals: see below Intervention & Plan Exercise Program Goals: Instruct on personal THR & RPE, Instruct on MET level & personal MET goal, Show patient to take own pulse /validate performance until accurate, Instruct on home exercise and Other additional plan/int Physical Activity Home Exercise Physical Activity - Home Exercise: Safe Exercise, Warm-up, Self-monitoring, Cool-Down, Home Exercise > 30 min Daily and Sitting Time <3 hours/daily Outcomes & Goals Outcomes/Goals: Demonstrates correct Warm-up/exercise Cool-Down (S3) if = 2.5 METs, Verbalizes symptoms of exercise intolerance by Session 3 (S3), Demonstrate safe equipment use (S3) & follows exercise prescrition (6) and Other: See below Intervention & Plan Plan/Intervention: Instruct warm-up & cool-down if exercising at > 2 METs, Instruct on symptoms of exercise intolerance & actions to take, Instruct & monitor on saf, Assess intial functional capacity & safety risk and Other See below 30-day Reassessments 30 day Reassessments:: Progressing Reassessment Notes & Comments:: Proper warm up and cool down explained to pt. Pt is able to return demonstration in her daily sessions. Exercise - 90-day Assessment Physician Prescribed Exercise Modalities: Treadmill and SciFit Stepper Exercise - Final/Discharge Physician Prescribed Exercise Modalities: Treadmill and SciFit Stepper Nutrition - 30-Day Assessment Weight Mgt (Other Care) Height: 5 ft 6 in Weight:: 250 lb BMI: 40.3 Nutrition - 60-Day Assessment Program Goals Nutrition Program Goals Patient has diagnosis of Hyperlipidemia (ICD E78)?: No Visit Date of Eval: 01/28/25 Session #:: 19 Cholesterol/Lipids (Other Core Measures) Determine presence & major risk factors that modify LDL goal: Hypertension or hypertensive medication, Low HDL cholesterol <40 mg/dL*, Family history of premature CHD in Male < 55 years: female <65 yearsFa and Age men > 45 years; women >/= 55 years Outcomes/Goals: Pt IDs own risk factors & lifestyle modifications by Session 10, Verbalizes symptoms of angina & response by session 3., Pt independently manages and Other Additional Outcomes/Goals: Intervention/Plan: Advocate for lipid panel cholesterol medication if applicable, Instruct on personal lipid levels & lipid goals/NCEP guidelines, Instruct on cholesterol and Other additional plan/int Referral to dietitian:: Yes 30-day Reassessments:: Progressing Reassessment Notes & Comments:: Pt has decided she would like to meet with [facility] technology applications consultant. Referral has been submitted. Diabetes (Other Core Measures) Diabetes Type: Diagnosis Type II ICD-10 E11 Insulin dependent injection/pump?: Yes Non-Insulin Dependent?: Yes Do you monitor your blood sugar at home?: Yes 30-day Reassessments:: Progressing Reassessment Notes & Comments:: Pt has decided she would like to meet with [facility] technology applications consultant. Referral has been submitted. Weight Mgt (Other Care) Height: 5 ft 6 in Weight:: 250 lb BMI: 40.3 Diagnosis Overweight/Obesity BMI> 30% ICD-10 E66: Yes Diagnosis High BMI/Morbid Obesity BMI> 35% ICD-10 Z68: Yes Outcomes/Goals: Pt sets, maintains & shows weight loss goal & trend during rehab and Other additional outcomes/goals Intervention/Plan: Instruct on ideal BMI & set weight loss goal w/patient, Assist pt to ID & incorporate diet changes for weight loss by S9, Refer to Structured Weight Loss program as appropriate, Encourage goal of using 250-300dcal per session for weight loss and Other additional plan/interventions 30 day Reassessments:: Progressing Reassessment Notes & Comments:: Pt has decided she would like to meet with [facility] technology applications consultant. Referral has been submitted. Healthy Eating Habits Will attend diet classes:: Yes Outcomes/Goals:: Consume diet rich in vegs,fruits,whole grain/high fiber,fish,lean meat, Limit sat/trans fats,cholesterol & added salts & sugars and Other additional outcome/goals: Intervention/Plan:: Assess current eating habits and Other Additional plan/interventions 30-day Reassessments:: Progressing Reassessment Notes & Comments:: Pt has decided she would like to meet with [facility] technology applications consultant. Referral has been submitted. Education Gave educational materials for:: Signs & symptoms of hypoglycemia, Signs & symptoms of hyperglycemia, Relate diabetes to coronary artery disease and Healthy eating Core - Final Assessment Hypertension Resting Blood Pressure:: 130/60 [place] [employer] Hypertension Guidelines Core - 60-Day Assessment Medication Compliance Preventative Medication(s):: Aspirin, Clopidogrel/P2Y12 inhibit, Statin/lipid and Beta carlos H/O mental health issues: depression, anxiety, or addiction?: No Doesn?t believe in the benefits of treatment?: No Believes medications are unnecessary or harmful?: No Has a concern about medication side effects?: No Expresses concern over the cost of medications?: No Outcomes/Goals: Verbalizes medications,desired effect & common side effects @ DC, Pt self-reports following medication regimen, Keeps card in wallet w/medications listed by DC and Other additional outcome/goals: Interventions/plans: Instruct on medication effects & side effects, Review medication list w/patient every two weeks, Instruct importance of taking meds as ordered & assist problem solving and Other additional Tobacco Use Tobacco Use: Non-smoker Hypertension Hypertension Diagnosis:: Hypertension ICD-10 I10 Resting Blood Pressure:: 132/64 Resting Blood Pressure:: 130/60 [place] [employer] Hypertension Guidelines Peak Exercise Blood Pressure:: 112/58 Outcomes/Goals: Able to verbalize/achieve optimal blood pressure <130/80, Incorporates diet changes & exercise for blood pressure control by DC and Other additional outcomes/goals Interventions/plan: Instruct on optimal blood pressure, hypertension & medications, Instruct on effects of sodium, alcohol, stress, exercise &hypertension and Other additional plan/interventions 30 day Reassessments:: Progressing Reassessment Notes & Comments:: Pt's BP's are within AHA normal limits on some days. Will encourages weight loss and a low sodium diet. Will continue to monitor and send report to pt's physician if necessary. Tobacco Cessation Referral Smoking Cessation Referral:: No Individual Education/Counseling:: No Education Schedule Given:: Yes Psychosocial - 30-Day Assess Target Goals Target Goals Referral to Behavioral Health PS - Interventions: Yes: Attend Stress Management Classes Outcomes/Goals: See list Psychosocial Outcomes/Goals:: ID's personal stressors & 2 strategies to manage stress by discharge and Other Additional outcome/goals: Psychosocial - 60-Day Assess VIsit Date of Eval: 01/28/25 Session #:: 19 History of previous Mental disease:: No Target Goals Target Goals Psychosocial Test Tool Used:: PHQ-9 Questionnaire phq-9 Severity See PHQ-9 Score: 3 Referral to Behavioral Health PS - Interventions: Yes: Attend Stress Management Classes Outcomes/Goals: See list Psychosocial Outcomes/Goals:: ID's personal stressors & 2 strategies to manage stress by discharge and Other Additional outcome/goals: Intervention/Plan: See List Interventions/Plan:: Assess stressors,coping strategies & signs of derpression on admission, Instruct/assist pt to develop coping & personal stress Mgt strategies, Refer to Behavioral Health if appropriate, Refer to Physician if appropriate, Instruct patient to recognize signs & symptoms of depression, Instruct patient to recog and Other additional plan/intervention 30-day Reassessments: 30 day Reassessments:: Met Reassessment Notes & Comments:: Pt denies any psychosocial issues at this time. Psychosocial - 90-Day Assess Target Goals Target Goals Referral to Behavioral Health PS - Interventions: Yes: Attend Stress Management Classes Psychosocial - Final Assessmen Target Goals Target Goals Referral to Behavioral Health PS - Interventions: Yes: Attend Stress Management Classes Nutrition - 90-Day Assessment Weight Mgt (Other Care) Height: 5 ft 6 in Weight:: 250 lb BMI: 40.3 Nutrition - Final Assessment Weight Mgt (Other Care) Height: 5 ft 6 in Weight:: 250 lb BMI: 40.3
[2025-01-28 09:07] VITALS: BP 130/60; BP 132/64; BMI 40.3
== END 2025-02-20 23:59 ==
LOC: CR 11:15
PROVIDERS: PCP Family Medicine; Referring Provider Internal Medicine Cardiovascular Disease; Visit Provider Internal Medicine Cardiovascular Disease
DX: I25.10 Atherosclerotic heart disease of native coronary artery without angina pectoris (principal); I25.2 Old myocardial infarction; E11.9 Type 2 diabetes mellitus without complications
CPT/HCPCS: 93798; 97802

== ENCOUNTER 2025-03-22 11:15 | Outpatient (RCR) | payer MEDICARE, OTHER, SELFPAY ==
[2025-01-28 09:07] VITALS: BMI 40.3
[2025-02-21 00:40] VITALS: BP 120/60; BP 130/60; BP 132/64
--- NOTE | 2025-02-26 09:07 | CR.ITP_ITS ---
Exercise - Initial Assessment Physician Prescribed Exercise Modalities: Treadmill, SciFit Stepper and SciFit Pro-II Ergometer Nutrition - Initial Assessment Weight Mgt (Other Care) Height: 5 ft 6 in Weight:: 252 lb BMI: 40.6 Psychosocial - Initial Assess Target Goals Target Goals Referral to Behavioral Health PS - Interventions: Yes: Attend Stress Management Classes Patient Health Questionnaire PHQ-9 Screening 90-Day Re-eval Assessment: 1. Little interest or pleasure in doing things: Not at all 2. Feeling down, depressed, or hopeless: Not at all 3. Trouble falling or staying asleep, or sleeping too much: Not at all 4. Feeling tired or having little energy: Nearly every day 5. Poor appetite or overeating: Not at all 6. Feeling bad about yourself -- or that you are a failure or have let yourself or your family down: Not at all 7. Trouble concentrating on things, such as reading the newspaper or watching television: Not at all 8. Moving or speaking so slowly that other people could have noticed. Or the opposite - being so fidgety or restless that you have been moving around a lot more than usual: Not at all 9. Thoughts that you would be better off , or of hurting yourself in some way: Not at all How difficult have these problems made it for you to do your work, take care of things at home, or get along with other people?: Not difficult at all Total Score: 3 Self-Efficacy 6-Item Scale 90-Day Re-eval Assessment: We would like to know how confident you are in doing certain activities. Please select your confidence level for: Fatigue Select Number: 9 Physical Discomfort or Pain Select Number: 8 Emotional Distress Select Number: 8 Other Symptoms or Health Problems Select Number: 8 Different Tasks and Activities Select Number: 9 Medication Select Number: 9 Total Score:: 8 Nutrition Survey Nutrition Survey Instructions Scoring Instructions Exercise - 30-day Assessment Physician Prescribed Exercise Modalities: Treadmill, SciFit Stepper and SciFit Pro-II Ergometer Exercise - 60-day Assessment Physician Prescribed Exercise Modalities: Treadmill, SciFit Stepper and SciFit Pro-II Ergometer Exercise - 90-day Assessment Visit Date of Eval: 02/26/25 Session #:: 25 Physician Prescribed Exercise Modalities: Treadmill, SciFit Stepper and SciFit Pro-II Ergometer Frequency: 3x/week for 12 weeks [36 sessions] Intensity: 60-80% of age predicted maximum heart rate reserve Duration: 30 - 45 minutes Current METSs:: 2.9 Target Heart Rate:: 88-117 Current RPE:: 11-13 Resting Blood Pressure: 104/56 Maximum Exercise Blood Pressure: 112/54 EKG Type: NSR to ST with rare pac/pvc Outcomes & Goals Goals:: Verbalizes understanding of THR, RPE & goal METS by session 6, Documents in home exercise log/reports 30 min aerobic 5 day/wk by DC, Demonstrates accurate pulse taking by DC and Other additional outcome/goals: see below Intervention & Plan Exercise Program Goals: Instruct on personal THR & RPE, Instruct on MET level & personal MET goal, Show patient to take own pulse /validate performance until accurate, Instruct on home exercise and Other additional plan/int Physical Activity Home Exercise Physical Activity - Home Exercise: Safe Exercise, Warm-up, Self-monitoring, Cool-Down, Home Exercise > 30 min Daily and Sitting Time <3 hours/daily Outcomes & Goals Outcomes/Goals: Demonstrates correct Warm-up/exercise Cool-Down (S3) if = 2.5 METs, Verbalizes symptoms of exercise intolerance by Session 3 (S3), Demonstrate safe equipment use (S3) & follows exercise prescrition (6) and Other: See below Intervention & Plan Plan/Intervention: Instruct warm-up & cool-down if exercising at > 2 METs, Instruct on symptoms of exercise intolerance & actions to take, Instruct & monitor on saf, Assess intial functional capacity & safety risk and Other See below 30-day Reassessments 30 day Reassessments:: Progressing Reassessment Notes & Comments:: Pt has met her bee able to increase her exercise intensity and is doing very well. Will continue to encourage pt. Exercise - Final/Discharge Physician Prescribed Exercise Modalities: Treadmill, SciFit Stepper and SciFit Pro-II Ergometer Nutrition - 30-Day Assessment Weight Mgt (Other Care) Height: 5 ft 6 in Weight:: 252 lb BMI: 40.6 Nutrition - 60-Day Assessment Weight Mgt (Other Care) Height: 5 ft 6 in Weight:: 252 lb BMI: 40.6 Core - 30-Day Assessment Hypertension [place] [employer] Hypertension Guidelines Reassessment Notes & Comments:: 02/08 furosemide 40 mg QD started and losartan increased to 50 mg QD. Pt's BP's are within AHA normal limits on most days. Core - Final Assessment Hypertension [place] [employer] Hypertension Guidelines Reassessment Notes & Comments:: 02/08 furosemide 40 mg QD started and losartan increased to 50 mg QD. Pt's BP's are within AHA normal limits on most days. Core - 90 Day Assessment Visit Date of Eval: 02/26/25 Session #:: 25 Medication Compliance Preventative Medication(s):: Aspirin, Clopidogrel/P2Y12 inhibit, Statin/lipid and Beta carlos H/O mental health issues: depression, anxiety, or addiction?: No Doesn’t believe in the benefits of treatment?: No Believes medications are unnecessary or harmful?: No Has a concern about medication side effects?: No Expresses concern over the cost of medications?: No Outcomes/Goals: Verbalizes medications,desired effect & common side effects @ DC, Pt self-reports following medication regimen, Keeps card in wallet w/medica tions listed by DC and Other additional outcome/goals: Interventions/plans: Instruct on medication effects & side effects, Review medication list w/patient every two weeks, Instruct importance of taking meds as ordered & assist problem solving and Other additional 30-day Reassessments:: Met Reassessment Notes & Comments:: 02/08 furosemide 40 mg QD started and losartan increased to 50 mg QD Tobacco Use Tobacco Use: Non-smoker Hypertension Hypertension Diagnosis:: Hypertension ICD-10 I10 Resting Blood Pressure:: 104/56 [place] [employer] Hypertension Guidelines Peak Exercise Blood Pressure:: 112/54 Outcomes/Goals: Able to verbalize/achieve optimal blood pressure <130/80, Incorporates diet changes & exercise for blood pressure control by DC and Other additional outcomes/goals Interventions/plan: Instruct on optimal blood pressure, hypertension & medications, Instruct on effects of sodium, alcohol, stress, exercise &hypertension and Other additional plan/interventions 30 day Reassessments:: Progressing Reassessment Notes & Comments:: 02/08 furosemide 40 mg QD started and losartan increased to 50 mg QD. Pt's BP's are within AHA normal limits on most days. Tobacco Cessation Referral Smoking Cessation Referral:: No Individual Education/Counseling:: No Education Schedule Given:: Yes Psychosocial - 30-Day Assess Target Goals Target Goals Referral to Behavioral Health PS - Interventions: Yes: Attend Stress Management Classes Psychosocial - 60-Day Assess Target Goals Target Goals Referral to Behavioral Health PS - Interventions: Yes: Attend Stress Management Classes Psychosocial - 90-Day Assess VIsit Date of Eval: 02/26/25 Session #:: 25 History of previous Mental disease:: No Target Goals Target Goals Psychosocial Test Tool Used:: PHQ-9 Questionnaire phq-9 Severity See PHQ-9 Score: 3 Referral to Behavioral Health PS - Interventions: Yes: Attend Stress Management Classes Outcomes/Goals: See list Psychosocial Outcomes/Goals:: ID's personal stressors & 2 strategies to manage stress by discharge and Other Additional outcome/goals: Intervention/Plan: See List Interventions/Plan:: Assess stressors,coping strategies & signs of derpression on admission, Instruct/assist pt to develop coping & personal stress Mgt strategies, Refer to Behavioral Health if appropriate, Refer to Physician if appropriate, Instruct patient to recognize signs & symptoms of depression, Instruct patient to recog and Other additional plan/intervention 30-day Reassessments: 30 day Reassessments:: Met Reassessment Notes & Comments:: Pt denies any psychosocial issues at this time. Psychosocial - Final Assessmen Target Goals Target Goals Referral to Behavioral Health PS - Interventions: Yes: Attend Stress Management Classes Nutrition - 90-Day Assessment Program Goals Nutrition Program Goals Patient has diagnosis of Hyperlipidemia (ICD E78)?: No Visit Date of Eval: 02/26/25 Session #:: 25 Cholesterol/Lipids (Other Core Measures) Determine presence & major risk factors that modify LDL goal: Hypertension or hypertensive medication, Low HDL cholesterol <40 mg/dL*, Family history of premature CHD in Male < 55 years: female <65 yearsFa and Age men > 45 years; women >/= 55 years Outcomes/Goals: Pt IDs own risk factors & lifestyle modifications by Session 10, Verbalizes symptoms of angina & response by session 3., Pt independently manages and Other Additional Outcomes/Goals: Intervention/Plan: Advocate for lipid panel cholesterol medication if applicable, Instruct on personal lipid levels & lipid goals/NCEP guidelines, Instruct on cholesterol and Other additional plan/int Referral to dietitian:: Yes 30-day Reassessments:: Met Reassessment Notes & Comments:: Pt was referred and has met with the dietitian. Diabetes (Other Core Measures) Diabetes Type: Diagnosis Type II ICD-10 E11 Insulin dependent injection/pump?: Yes Non-Insulin Dependent?: Yes Do you monitor your blood sugar at home?: Yes 30-day Reassessments:: Progressing Reassessment Notes & Comments:: Pt has met with dietitian Weight Mgt (Other Care) Height: 5 ft 6 in Weight:: 252 lb BMI: 40.6 Diagnosis Overweight/Obesity BMI> 30% ICD-10 E66: Yes Diagnosis High BMI/Morbid Obesity BMI> 35% ICD-10 Z68: Yes Outcomes/Goals: Pt sets, maintains & shows weight loss goal & trend during rehab and Other additional outcomes/goals Intervention/Plan: Instruct on ideal BMI & set weight loss goal w/patient, Assist pt to ID & incorporate diet changes for weight loss by S9, Refer to Structured Weight Loss program as appropriate, Encourage goal of using 250- 300dcal per session for weight loss and Other additional plan/interventions Healthy Eating Habits Will attend diet classes:: Yes Outcomes/Goals:: Consume diet rich in vegs,fruits,whole grain/high fiber,fish,lean meat, Limit sat/trans fats,cholesterol & added salts & sugars and Other additional outcome/goals: Intervention/Plan:: Assess current eating habits and Other Additional plan/interventions 30-day Reassessments:: Met Reassessment Notes & Comments:: Pt has met with our dietitian and attended nutrition class Education Gave educational materials for:: Signs & symptoms of hypoglycemia, Signs & symptoms of hyperglycemia, Relate diabetes to coronary artery disease and Healthy eating Nutrition - Final Assessment Weight Mgt (Other Care) Height: 5 ft 6 in Weight:: 252 lb BMI: 40.6
[2025-02-26 09:22] VITALS: BP 104/56; BMI 40.6
== END 2025-03-22 23:59 ==
LOC: CR 11:15
PROVIDERS: PCP Family Medicine; Referring Provider Internal Medicine Cardiovascular Disease; Visit Provider Internal Medicine Cardiovascular Disease
DX: I25.10 Atherosclerotic heart disease of native coronary artery without angina pectoris (principal); I21.3 ST elevation (STEMI) myocardial infarction of unspecified site; I21.02 ST elevation (STEMI) myocardial infarction involving left anterior descending coronary artery
CPT/HCPCS: 93798

== ENCOUNTER 2025-03-24 08:22 | Outpatient (RCR) | payer MEDICARE, OTHER, SELFPAY ==
[2025-02-26 09:22] VITALS: BMI 40.6
--- NOTE | 2025-03-24 09:00 | CR.ITP_ITS ---
Exercise - Initial Assessment Physician Prescribed Exercise Modalities: SciFit Stepper and SciFit Pro-II Ergometer Nutrition - Initial Assessment Program Goals Nutrition Program Goals Patient has diagnosis of Hyperlipidemia (ICD E78)?: No Weight Mgt (Other Care) Height: 5 ft 6 in Weight:: 249 lb BMI: 40.1 Core - Initial Assessment Hypertension Resting Blood Pressure:: 120/60 [place] [employer] Hypertension Guidelines Psychosocial - Initial Assess Target Goals Target Goals Psychosocial Test phq-9 Severity See PHQ-9 Score: 3 Patient Health Questionnaire PHQ-9 Screening Discharge Assessment: 1. Little interest or pleasure in doing things: Not at all 2. Feeling down, depressed, or hopeless: Not at all 3. Trouble falling or staying asleep, or sleeping too much: Not at all 4. Feeling tired or having little energy: Nearly every day 5. Poor appetite or overeating: Not at all 6. Feeling bad about yourself -- or that you are a failure or have let yourself or your family down: Not at all 7. Trouble concentrating on things, such as reading the newspaper or watching television: Not at all 8. Moving or speaking so slowly that other people could have noticed. Or the opposite - being so fidgety or restless that you have been moving around a lot more than usual: Not at all 9. Thoughts that you would be better off , or of hurting yourself in some way: Not at all How difficult have these problems made it for you to do your work, take care of things at home, or get along with other people?: Not difficult at all Total Score: 3 Self-Efficacy 6-Item Scale Discharge Assessment: We would like to know how confident you are in doing certain activities. Please select your confidence level for: Fatigue Select Number: 9 Physical Discomfort or Pain Select Number: 8 Emotional Distress Select Number: 8 Other Symptoms or Health Problems Select Number: 8 Different Tasks and Activities Select Number: 9 Medication Select Number: 9 Total Score:: 8 Nutrition Survey Nutrition Survey Instructions Scoring Instructions Exercise - 30-day Assessment Physician Prescribed Exercise Modalities: SciFit Stepper and SciFit Pro-II Ergometer Exercise - 60-day Assessment Physician Prescribed Exercise Modalities: SciFit Stepper and SciFit Pro-II Ergometer Exercise - 90-day Assessment Physician Prescribed Exercise Modalities: SciFit Stepper and SciFit Pro-II Ergometer Exercise - Final/Discharge Visit Date of Eval: 03/24/25 Session #:: 35 (has 1 session left of rehab.) Physician Prescribed Exercise Modalities: SciFit Stepper and SciFit Pro-II Ergometer Frequency: 3x/week for 12 weeks [36 sessions] Intensity: 60-80% of age predicted maximum heart rate reserve Duration: 30 - 45 minutes METs - Progression 0.5-1.0 weekly:: 0.5 Current METSs:: 2.9 Target Heart Rate:: 88-117 Target RPE 12-16:: 12-16 Current RPE:: 14 Maximum Heart Rate:: 100 Resting Blood Pressure: 120/60 Maximum Exercise Blood Pressure: 124/50 EKG Type: NSR to sinus tachycardia with a rare PVC/PAC. Current Physical Activity or Exercising minutes: 30 MINS Outcomes & Goals Goals:: Verbalizes understanding of THR, RPE & goal METS by session 6, Documents in home exercise log/reports 30 min aerobic 5 day/wk by DC and Demonstrates accurate pulse taking by DC Intervention & Plan Exercise Program Goals: Instruct on personal THR & RPE, Instruct on MET level & personal MET goal, Show patient to take own pulse /validate performance until accurate and Instruct on home exercise 30-day Reassessments 30 day Reassessments:: Met Physical Activity Home Exercise Physical Activity - Home Exercise: Safe Exercise, Warm-up, Self-monitoring, Cool-Down, Home Exercise > 30 min Daily and Sitting Time <3 hours/daily Outcomes & Goals Outcomes/Goals: Demonstrates correct Warm-up/exercise Cool-Down (S3) if = 2.5 METs, Verbalizes symptoms of exercise intolerance by Session 3 (S3) and Demonstrate safe equipment use (S3) & follows exercise prescrition (6) Intervention & Plan Plan/Intervention: Instruct warm-up & cool-down if exercising at > 2 METs, Instruct on symptoms of exercise intolerance & actions to take, Instruct & monitor on saf and Assess intial functional capacity & safety risk 30-day Reassessments 30 day Reassessments:: Met Reassessment Notes & Comments:: demonstrates understanding of warm up/cool down during exercise. continues to increase workloads using RPE scale rating. demonstrates motivation while exercising. Nutrition - 30-Day Assessment Weight Mgt (Other Care) Height: 5 ft 6 in Weight:: 249 lb BMI: 40.1 Nutrition - 60-Day Assessment Weight Mgt (Other Care) Height: 5 ft 6 in Weight:: 249 lb BMI: 40.1 Core - Final Assessment Visit Date of Eval: 03/24/25 Session #:: 35 Medication Compliance Preventative Medication(s):: Aspirin, Clopidogrel/P2Y12 inhibit, Statin/lipid and Beta carlos H/O mental health issues: depression, anxiety, or addiction?: No Doesn?t believe in the benefits of treatment?: No Believes medications are unnecessary or harmful?: No Has a concern about medication side effects?: No Expresses concern over the cost of medications?: No Outcomes/Goals: Verbalizes medications,desired effect & common side effects @ DC, Pt self-reports following medication regimen and Keeps card in wallet w/medications listed by DC Interventions/plans: Instruct on medication effects & side effects, Review medication list w/patient every two weeks and Instruct importance of taking meds as ordered & assist problem solving 30-day Reassessments:: Met Reassessment Notes & Comments:: taking her medications as prescribed, blood pressures remain WNL. Tobacco Use Tobacco Use: Non-smoker Hypertension Hypertension Diagnosis:: Hypertension ICD-10 I10 Resting Blood Pressure:: 120/60 [place] [employer] Hypertension Guidelines Peak Exercise Blood Pressure:: 124/50 Outcomes/Goals: Able to verbalize/achieve optimal blood pressure <130/80 and Incorporates diet changes & exercise for blood pressure control by DC Interventions/plan: Instruct on optimal blood pressure, hypertension & medications and Instruct on effects of sodium, alcohol, stress, exercise &hypertension 30 day Reassessments:: Met Core - 60-Day Assessment Hypertension Resting Blood Pressure:: 120/60 [place] [employer] Hypertension Guidelines Psychosocial - 30-Day Assess Target Goals Target Goals Psychosocial - 60-Day Assess Target Goals Target Goals Psychosocial - 90-Day Assess Target Goals Target Goals Psychosocial Test phq-9 Severity Total Score:: 3 Psychosocial - Final Assessmen VIsit Date of Eval: 03/24/25 Session #:: 35 History of previous Mental disease:: No Target Goals Target Goals Psychosocial Test Tool Used:: PHQ-9 Questionnaire phq-9 Severity See PHQ-9 Score: 3 Total Score:: 3 Outcomes/Goals: See list Psychosocial Outcomes/Goals:: ID's personal stressors & 2 strategies to manage stress by discharge Intervention/Plan: See List Interventions/Plan:: Assess stressors,coping strategies & signs of derpression on admission, Instruct/assist pt to develop coping & personal stress Mgt strategies, Refer to Behavioral Health if appropriate, Refer to Physician if appropriate, Instruct patient to recognize signs & symptoms of depression and Instruct patient to recog 30-day Reassessments: 30 day Reassessments:: Met Reassessment Notes & Comments:: attended stress management classes in rehab. is doing very well in rehab. Nutrition - 90-Day Assessment Weight Mgt (Other Care) Height: 5 ft 6 in Weight:: 249 lb BMI: 40.1 Nutrition - Final Assessment Program Goals Patient has diagnosis of Hyperlipidemia (ICD E78)?: No Visit Date of Assessment:: 03/24/25 Session #:: 35 Cholesterol/Lipids (Other Core Measures) Determine presence & major risk factors that modify LDL goal: Hypertension or hypertensive medication, Low HDL cholesterol <40 mg/dL*, Family history of mariama ature CHD in Male < 55 years: female <65 yearsFa and Age men > 45 years; women >/= 55 years Outcomes/Goals: Pt IDs own risk factors & lifestyle modifications by Session 10, Verbalizes symptoms of angina & response by session 3. and Pt independently manages Intervention/Plan: Advocate for lipid panel cholesterol medication if applicable, Instruct on personal lipid levels & lipid goals/NCEP guidelines and Instruct on cholesterol 30-day Reassessments:: Met Reassessment Notes & Comments:: successfully met with behavioral health care manager. making dietary changes. will continue to encourage heart healthy diet. Diabetes (Other Core Measures) Diabetes Type: Diagnosis Type II ICD-10 E11 Insulin dependent injection/pump?: Yes Non-Insulin Dependent?: Yes Do you monitor your blood sugar at home?: Yes Outcomes/Goals:: Able to state symptoms of, Able to state and Able to state Intervention/Plan:: Instruct on, Refer to and Instruct on 30-day Reassessments:: Met Reassessment Notes & Comments:: met with behavioral health care manager regarding her diet. accurately monitors her blood sugars. Weight Mgt (Other Care) Height: 5 ft 6 in Weight:: 249 lb BMI: 40.1 Diagnosis Overweight/Obesity BMI> 30% ICD-10 E66: Yes Outcomes/Goals: Pt sets, maintains & shows weight loss goal & trend during rehab Intervention/Plan: Instruct on ideal BMI & set weight loss goal w/patient, Assist pt to ID & incorporate diet changes for weight loss by S9, Refer to Structured Weight Loss program as appropriate and Encourage goal of using 250- 300dcal per session for weight loss 30 day Reassessments:: Met Reassessment Notes & Comments:: Patient will continue working toward weight loss goal outside of rehab. is down 3lbs since last 30 day report. Healthy Eating Habits Will attend diet classes:: Yes Outcomes/Goals:: Consume diet rich in vegs,fruits,whole grain/high fiber,fish,lean meat and Limit sat/trans fats,cholesterol & added salts & sugars Intervention/Plan:: Other Additional plan/interventions 30-day Reassessments:: Met Reassessment Notes & Comments:: attended education classes and completed 1 on 1 session with behavioral health care manager. Education Gave educational materials for:: Signs & symptoms of hypoglycemia, Signs & symptoms of hyperglycemia, Relate diabetes to coronary artery disease and Healthy eating
[2025-03-24 09:09] VITALS: BP 120/60; BMI 40.1
[2025-03-24 09:16] VITALS: BP 120/60
== END 2025-04-22 23:59 ==
LOC: CR 08:22
PROVIDERS: PCP Family Medicine; Referring Provider Internal Medicine Cardiovascular Disease; Visit Provider Internal Medicine Cardiovascular Disease
DX: I25.10 Atherosclerotic heart disease of native coronary artery without angina pectoris (principal); I21.02 ST elevation (STEMI) myocardial infarction involving left anterior descending coronary artery
CPT/HCPCS: 93798

== ENCOUNTER → 2025-04-05 | Outpatient (CLI) | payer MEDICARE, OTHER, SELFPAY ==
[2025-03-24 09:09] VITALS: BMI 40.1
--- NOTE | 2025-04-05 11:27 | RAD_ITS ---
PROCEDURE: KNEE 3 VIEWS 04/05/2025 REASON FOR EXAM: RIGHT KNEE PAIN; HX R TOTAL KNEE REPLACEMENT TECHNIQUE: KNEE 3 VIEWS COMPARISON: None FINDINGS: Three views of the right knee demonstrate the prosthetic knee device to. In satisfactory position without evidence of fracture or loosening. No acute fractures or dislocations are noted. There is a calcific density anterior to the knee joint and inferior to the patella. There are also calcific densities identified superior and posterior to the patella. There does appear to be a small suprapatellar bursa effusion. Small amount of soft tissue swelling right knee. RAD/Knee 3 Views IMPRESSION: Radiopaque hardware appears to be intact without evidence of fracture or loosen ing. Small suprapatellar bursa effusion. Small amount of soft tissue swelling right knee. Reading Location: [id number]
== END | disposition home or self-care (01) ==
LOC: MTRAD 11:27
PROVIDERS: PCP Family Medicine; Referring Provider Psychiatry & Neurology Neurology; Visit Provider Psychiatry & Neurology Neurology
DX: M25.561 Pain in right knee (principal); Z96.651 Presence of right artificial knee joint
CPT/HCPCS: 73562

== ENCOUNTER 2025-04-08 03:03 | Emergency (ER) | payer MEDICARE, OTHER, SELFPAY ==
[2025-04-08 03:04] VITALS: BP 150/71; PULSE 85; RESP 16; TEMP 36.5; O2SAT 98; BMI 39.5
[2025-04-08 03:36] LABS: Hematocrit 38.6 % (37-47); Hemoglobin 12.9 g/dL (12.0-15.0); Immature Granulocytes Count 0.040 X10^3/uL (0.0-0.0); Mean Corp Hgb Conc 33.4 g/dL (32-36); Mean Corpuscular Volume 93.5 fL (81-99); Mean Platelet Vol. 9.0 fl (6.2-12.0); NRBC Flagged by Analyzer 0 % (0-5); Platelet Count 280 K/mm3 (150-450); RBC Distribution Width CV 12.9 % (11.6-14.6); RBC Distribution Width SD 44.1 fl (35.1-43.9); Red Blood Count 4.13 M/mm3 (4.2-5.4); White Blood Count 8.7 K/mm3 (4.4-11.0)
--- NOTE | 2025-04-08 03:50 | RAD_ITS ---
PROCEDURE: CHEST PA AND LATERAL 04/08/2025 REASON FOR EXAM: CHEST PAIN TECHNIQUE: CHEST PA AND LATERAL COMPARISON: 09/15/2021 CT FINDINGS: Normal heart size. Well inflated lungs. No consolidation, effusion or pneumothorax. Flowing anterior osteophytes. RAD/Chest PA and Lateral IMPRESSION: No acute chest findings. Reading Location: [facility]
[2025-04-08 03:58] LABS: Troponin T High Sensitivity 19 ng/L (<=14)
[2025-04-08 03:59] LABS: Magnesium 1.9 mg/dL (1.5-2.2)
[2025-04-08 04:00] VITALS: BP 125/62; PULSE 80; RESP 18; O2SAT 97
[2025-04-08 04:00] LABS: Anion Gap 12 (5-15); BUN 16 mg/dL (4-19); BUN/Creat Ratio 16.3 RATIO (10-20); Calcium,Total 9.1 mg/dL (7.6-11.0); Carbon Dioxide 24.6 mmol/L (21.0-32.0); Chloride 101 mmol/L (98-108); Estimated Creatinine Clearance 64.95 ml/min (50-250); Glucose 225 mg/dL (70-99); Potassium 3.9 mmol/L (3.3-5.1)
--- OUTSIDE RECORDS SUMMARY | 2025-04-08 04:37 | XMS RPT_ITS | CCD ---
Author Organization [facility] Care Team Providers Care Roll Edge Stitcher Hand Name Role Phone AYAN MENDES Unavailable Unavailable NO FAMILY DOCTOR, DO NOT USE Unavailable Meredith vailable Jaylin Hutson Unavailable Unavailable Claire Guthrie Unavailable Unavailable Jaylin Hutson A Unavailable Unavailable Bonilla, Al-Brown A Unavailable Unavailable Bhumika Ling Unavailable Unavailable Brock Heath Unavailable Unavailable Claire Guthrie Unavailable Unavailable Dipak Ohara Unavailable Unavailable Aaron Emanuel Unavailable Unavailab Luis Tipton Primary Care Provider Luis Starks Primary Care Provider Unavailable Primary Care Provider Unavailabl Jaylin Higuera Unavailable Unavailable Claire Guthrie Unavailable Unavailable GunLuis gomes Unavailable Unavailable Jaylin Hutson Unavailable Unavailable Luis Starks Primary Care Provider Bhumika Ling Unavailable Unavailable Elio Loya Unavailable Unavailable Gunning Luis DYE Primary Care Provider Jodi Palma DO Primary Care Provider [phone] Luis Starks Unavailable Unavailable Unavailable Dr. Antonio Brooks Attending Provider Dr. Aries Hill Primary Care Provider [phone] Dr. Aries Hill Referring Provider SUNNY Gomez Attending Provider Dr. Aries Hill Attending Provider [phone] Dr. Lambert Caraballo Attending Provider Dr. Aries Hill Primary Care Provider Dr. Aries Hill Referring Provider [phone] Antonio Brooks Attending Provider Dr. Ismael Jose Attending Provider Dr. Justin Galarza Attending Provider [phone] Lambert Caraballo Attending Provider Dr. Ismael Jose Referring Provider [phone] Damon, Dr. Guevara Other Provider Dr. Yury Banegas Attending Provider Dr. Matilda Cid Emergency Provider Kor, Dr. Tahira Lopez Admit Provider Koram, Dr. Tahira Lopez Attending Provider Koram, Dr. Tahira Lopez Other Provider Unavailable Unavailable Unknown, Pcp Unavailable Unavailable Zena Pablo Unavailable Dr. Aries Hill Primary Care Provider [phone] Dr. Aries Hill Attending Provider [phone] Dr. Aries Hill Referring Provider [phone] SUNNY Gomez Attending Provider Dr. Antonio Brooks Attending Provider Sementi, Dr. Tra Jorge Admit Provider Semensuly, Dr. Tra Jorge Attending Provider Semensuly, Dr. Tra Jorge Other Provider Dr. Elio Correa Attending Provider [phone] Aries Hill Primary Care Provider [phone] Dr. Aries Hill Referring Provider Semensuly, Dr. Tra Jorge Referring Provider Dr. Aries Hill Attending Provider [phone] FRITZ Diaz Attending Provider Dr. Sunday Alva Attending Provider Dr. Aries Hill Primary Care Provider [phone] Dr. Aries Hill Referring Provider [phone] Aries Hill Primary Care Provider [phone] Sergio, Dr. Kwan Referring Provider [phone] FRITZ Diaz Attending Provider Unavailab Mcmahon, Dr. Sunday Yanez Attending Provider FRITZ Diaz Referring Provider UnavailDr. Aries Omer Attending Provider [phone] SUNNY Gomez Attending Provider FRITZ Bella Attending Provider Dr. Aries Hill Primary Care Provider [phone] Dr. Aries Hill Referring Provider [phone] Dr. Antonio Brooks Attending Provider Dr. Antonio Brooks Referring Provider Dr. Aries Hill Attending Unavailable Sergio, Dr. Aries Manriquez Primary Care Unavailable Sergio, Dr. Aries Manriquez Primary Care Unavailable Sergio, Dr. Aries Manriquez Attending Unavailable Prince Vickers DO Primary Care Provider Prince Vickers Unavailable Dr. Prince Vickers Primary Care Meredith vailable Emperatriz, Dr. Jodi Wilkerson Attending Unavaila marcos Awan, Dr. Jodi Wilkerson Attending UnavailDr. Prince Loja Primary Care Meredith vailable DISCH, MARI J Attending Unavailable JODI PALMA Primary Care Unavailable Inc, [facility] Primary Care Provider Unav ailable [facility] Luis GAN Unavailable Emperatriz DYE PhD, Jodi Wilkerson Unavailable [phone] Zena Pablo MD Unavailable [place] DO, Tess C Primary Care Provider King MARNIE, Lambert Mckeon Unavailable RAMA TESS C Primary Care Unavaila ble KISHA DYE~[id number], KISHA Wilkerson Attending Unavailable KISHA DYE~[id number], KISHA Wilkerson Admitting Unavailable King MARNIE, Lambert Mckeon Unavailable Unavailabl e King MARNIE, Lambert Mckeon Unavailable Patrick Mathews MD, Cat Castañeda Unavailable King MARNIE, Lambert Mckeon Unavailable [phone] Ciara Roy MA Unavailable Unavailable Rama DO, Tess C Unavailable [phone] Darnell Tan MD Unavailable Mesko DO, Mildred L Unavailable Ji Galo MD [facility]available [facility] [phone] Emperatriz DYE PhD, Jodi Wilkerson Unavailable Zena Palbo MD Unavailable [phone] [place] DO, Tess C Primary Care Provider Patrick Mathews MD, Abdelle L Unavailable [place] DO, Tess C Unavailable Ji Galo MD Unavailable Silas Stern MD Unavailable [phone] Anthony VILLEDAM, Anthony Taylor Unavailable Ciara Roy MA Unavailable Unavailable [place] DO, Tess C Unavailable [phone] Sergio DYE, Dr. Kwan Primary Care Provider Adan DYE, Dr. Mg Referring Provider Rebeca GAN, Dr. Auguste Emergency Provider Dr. Sanchez Mendez DO Attending Provider Sergio DYE, Dr. Kwan Primary Care Provider Adan DYE, Dr. Mg Referring Provider Adan DYE, Dr. Mg Other Provider Rebeca GAN, Dr. Auguste Emergency Provider Santino DYE, Dr. Tahira Lopez Admit Provider Santino DYE, Dr. Tahira Lopez Attending Provider Andrea GAN, Dr. Bradford Other Provider Adan DYE, Dr. Mg Attending Provider Santino DYE, Dr. Tahira Lopez Other Provider Sergio DYE, Dr. Kwan Primary Care Provider Adan DYE, Dr. Mg Referring Provider Adan DYE, Dr. Mg Other Provider Rebeca GAN, Dr. Auguste Emergency Provider Santino DYE, Dr. Tahira Lopez Admit Provider Santino DYE, Dr. Tahira Lopez Attending Provider Andrea GAN, Dr. Bradford Other Provider Adan DYE, Dr. Mg Attending Provider Santino DYE, Dr. Tahira Lopez Other Provider Dr. Tess Ontiveros DO Primary Care Provid er Dr. Niles Melara DO Emergency Provider Ciara Roy MA Unavailable TESS ONTIVEROS Primary Care Unavaila ble JI GALO Attending Unavailable JI GALO Referring Unavailable RAMA, TESS Moura Primary Care Unavaila ble SILAS STERN Referring Unavailable RAMA, TESS Moura Primary Care Unavaila ble JODI AWAN Attending Unavailable RAMA, TESS Moura Primary Care Unavaila ble CYNTHIA BOOTH Attending Unavailable CAT RICHARDSON Referring Unav ailable RAMA, TESS Moura Primary Care Unavaila ble BOOTHCYNTHIA BERNARD Attending Unavailable CAT RICHARDSON Referring Unav ailable RAMA, TESS Moura Primary Care Unavaila ble ZENA PABLO Admitting Unavailable ZENA PABLO Attending Unavailable RAMA, TESS Moura Primary Care Unavaila ble RAMA, TESS Moura Referring Unavaila ble RAMA, TESS Moura Primary Care Unavaila ble RAMA, TESS Moura Primary Care Unavaila ble RAMA, TESS Moura Primary Care Unavaila ble ZENA PABLO Referring Unavailable RAMA, TESS Moura Primary Care Unavaila ble RAMA, TESS Moura Primary Care Unavaila ble JODI AWAN Attending Unavailable RAMA, TESS Moura Referring Unavaila ble RAMA, TESS Moura Primary Care Unavaila ble RAMA, TESS Moura Primary Care Unavaila ble RAMA, TESS Moura Primary Care Unavaila ble RAMA, TESS Moura Primary Care Unavaila ble RAMA, TESS Moura Primary Care Unavaila ble JODI AWAN Attending Unavailable RAMA, TESS Moura Primary Care Unavaila ble RAMA, TESS Moura Referring Unavaila ble RAMA, TESS Moura Primary Care Unavaila ble SHMIGELSKYI, RADHA Attending Unavailabl e RAMA, TESS Moura Primary Care Unavaila ble SHMIGELSKYI, RADHA Referring Unavailabl e Dr. Niles Melara DO Attending Provider [phone] Dr. Elio Correa MD Attending Provider [phone] Dr. Niles Melara DO Referring Provider Rama Lorena GANTess Primary Care Provider LUIS ALVAREZ Attending Unavailable LUIS ALVAREZ Referring Unavailable RAMA, TESS Primary Care Unavailabl e DARNELL TAN Attending [facility] DARNELL TAN Attending Unavailable [facility] Unavailable RONYAK, JAYLIN Primary Care Unavailable RONYAK, JAYLIN Primary Care Unavailable RONYAK, JAYLIN Primary Care Unavailable Adan, Saurav Referring Unavailable Adan, Saurav Attending Unavailable [place], Tess Primary Care Unavailabl e Referred, Self Referring Unavailable Referred, Self Attending Unavailable Rama, Tess Primary Care Unavailabl e Adan, Saurav Referring Unavailable Adan, Saurav Attending Unavailable [place], Tess Primary Care Unavailabl e Adan, Saurav Referring Unavailable Koram, Tahira Jessica Admitting Unavailable Koram, Tahira Jessica Attending Unavailable Oleghe, Efewongbe Primary Care Unavailable Adan, Saurav Consulting Unavailable Sanchez Mendez Consulting Unavailable Koram, Tahira Jessica Consulting Unavailable Adan, Saurav Attending Unavailable Adan, Saurav Referring Unavailable Adan, Saurav Attending Unavailable Oleghe, Efewongbe Primary Care Unavailable Adan, Saurav Consulting Unavailable Andrea Sanchez Consulting Unavailable Elio Correa Attending Unavailable Niles Melara Referring Unavailable Rama, Tess Primary Care Unavailabl e Adan, Saurav Referring Unavailable Adan, Saurav Attending Unavailable [place], Tess Primary Care Unavailabl e Adan, Saurav Referring Unavailable Adan, Saurav Attending Unavailable Rama, Tess Primary Care Unavailabl e Adan, Saurav Referring Unavailable Adan, Saurav Attending Unavailable [place], Tess Primary Care Unavailabl e Niles Melara Attending Unavailable [place], Tess Primary Care Unavailabl e Adan, Saurav Referring Unavailable Adan, Saurav Attending Unavailable Rama, Tess Primary Care Unavailabl e Koram, Tahira Jessica Admitting Unavailable Koram, Tahira Jessica Attending Unavailable Sanchez Mendez Consulting Unavailable Oleghe, Efewongbe Primary Care Unavailable Saurav Arellano Referring Unavailable AdanSaurav armando Consulting Unavailable RAMATESS Referring Unavaila ble RAMATESS Primary Care Unavaila ble ZENA PABLO Admitting Unavailable ZENA PABLO Attending Unavailable RAMATESS Castañeda Primary Care Unavaila ble YANELIS AYALA Attending Unavailable RAMATESS Primary Care Unavaila ble ZENA PABLO Attending Unavailable RAMATESS Primary Care Unavaila ble [place] , Dr. Clayton Primary Care Provid er Adan DYE, Dr. Mg Attending Provider Adan DYE, Dr. Mg Referring Provider Referred, Self Attending Provider Unavailable Referred, Self Referring Provider Unavailable Sergio DYE, Dr. Kwan Referring Provider Todd DYE, Dr. Alvarez Attending Provider [phone] HERMES, DEAN L Attending Unavailable RAMATESS Primary Care Unavaila ble PATRICK CHERES, ABDELLE L Attending Unav ailable RAMATESS VALADEZ Primary Care Unavaila ble RAMA, TESS Moura Attending Unavaila ble HERMES, DEAN L Referring Unavailable RAMATESS Primary Care Unavaila ble PATRICKABHIJEET BISHOPES, ABDELLE L Attending Unav ailable RAMATESS Castañeda Primary Care Unavaila ble RAMATESS Attending Unavaila ble RAMA, TESS Moura Primary Care Unavaila ble JI GALO Attending Unavailable RAMATESS Referring Unavaila ble RAMA, TESS Moura Primary Care Unavaila ble SILAS STERN Attending Unavailable RAMATESS Primary Care Unavaila ble PATRICK CHERES, ABDELLE L Attending Unav ailable RAMATESS VALADEZ Primary Care Unavaila ble RAMA, TESS Moura Attending Unavaila ble RAMA, TESS Moura Primary Care Unavaila ble CYNTHIA BOOTH Attending Unavailable CAT RICHARDSON Referring Unav ailable RAMA, TESS C Primary Care Unavaila ble CYNTHIA BOOTH Attending Unavailable CAT RICHARDSON Referring Unav ailable RAMA, TESS C Primary Care Unavaila ble IRAJ, JI A Attending Unavailable RAMA, TESS C Primary Care Unavaila ble CAT RICHARDSON Attending Unav ailable RAMA, TESS C Primary Care Unavaila ble RAMA, TESS C Attending Unavaila ble RAMA, TESS C Primary Care Unavaila ble CYNTHIA BOOTH Attending Unavailable CAT RICHARDSON Referring Unav ailable ARMA, TESS C Primary Care Unavaila ble Allergies Allergy Classification Reported Allergen(s) Allergy Type Date of Onset Reaction(s) Facility Acetaminophen (1 source) Acetaminophen Drug Allergy 017 Nausea And Vomiting [facility] Acetaminophen / HYDROcodone (2 sources) Acetaminophen / HYDROcodone Drug Allergy 020 Other [facility] Adhesive Tape (1 source) Adhesive Tape Substance Allergy 017 Rash [facility] Aluminum aspirin (1 source) Aluminum aspirin Drug Allergy 017 Nausea And Vomiting [facility] Aspirin (1 source) Aspirin Drug Allergy 023 GI bleeding [facility] Work Phone: Capsaicin (2 sources) Capsaicin Drug Allergy 019 Rash [facility] Carbidopa / Levodopa (2 sources) Carbidopa / Levodopa Drug Allergy 017 Unknown [facility] Chlorhexidine (2 sources) Chlorhexidine Drug Allergy 023 Rash, Other [facility] Work Phone: cyclobenzaprine (2 sources) cyclobenzaprine Drug Allergy 019 Unknown [facility] Dihydrofolate Reductase Inhibitors (antibiotic) (3 sources) Trimethoprim Drug Allergy 016 Unknown [facility] empagliflozin (1 source) empagliflozin Drug Allergy 021 Unknown [facility] Work Phone: Levodopa (2 sources) Levodopa Drug Allergy 020 Unknown [facility] Lysine (2 sources) Lysine Drug Allergy 016 Unknown [facility] Macrolides (antibiotic) (2 sources) Erythromycin Drug Allergy 012 Other (See Comments), Unknown [facility] Work Phone: Nitrofurantoin (2 sources) Nitrofurantoin Drug Allergy 020 Unknown [facility] Opioid Agonists (9 sources) Codeine Drug Allergy 012 Other (See Comments), Unknown [facility] Work Phone: Quinolones (antibiotic) (2 sources) Ciprofloxacin Drug Allergy 020 Rash [facility] Sulfamethizole (1 source) Sulfamethizole Drug Allergy 016 [facility] Sulfamethoxazole / Trimethoprim (2 sources) Sulfamethoxazole / Trimethoprim Drug Allergy 019 Other [facility] Sulfonamides (antibiotic) (3 sources) Sulfonamides (Antibiotic) Drug Allergy 016 Unknown [facility] (20 sources) Acetaminophen; Translations: [Acetaminophen CAPS] Drug Allergy 017 Nausea And Vomiting, Unknown [employer] Work Phone: (20 sources) Acetaminophen / HYDROcodone; Translations: [[place] TABS] Drug Allergy 023 Other [employer] Work Phone: (20 sources) Aspirin; Translations: [aspirin] Drug Allergy 017 Nausea And Vomiting, GI bleeding, Unknown, Other [employer] Work Phone: Comment on above: severe abd pain (18 sources) Carbidopa / Levodopa; Translations: [Sinemet] Drug Allergy Unknown [employer] Work Phone: Comment on above: severe gi upset,emes is (20 sources) Codeine; Translations: [Codeine Derivatives] Drug Allergy 012 Other (See Comments), Unknown, Nausea/vomiting [employer] Work Phone: (20 sources) Erythromycin; Translations: [erythromycin] Drug Allergy 012 Other (See Comments), Unknown, Nausea Only, Cough, Other, GI Upset [facility] Work [facility]: Comment on above: severe stomach pain (20 sources) HYDROcodone; Translations: [hydrocodone] Drug Allergy Unknown, Hallucinations [facility] Work [facility]: Comment on above: Hallucinations (20 sources) Meperidine; Translations: [meperidine] Drug Allergy Unknown, Nausea/vomiting [facility] Work [facility]: Comment on above: severe emesis (20 sources) Sulfamethoxazole / Trimethoprim Drug Allergy 012 [facility] Work [facility]: Comment on above: severe gi upset and vomitting (20 sources) Trimethoprim; Translations: [trimethoprim] Drug Allergy [facility] Work Phone: (16 sources) Milk, Cow allergy to substance [facility] Work Phone: (15 sources) Acetaminophen / HYDROcodone; Translations: [HYDROCODONE-ACETA MINOPHEN] Drug Allergy Other [place] (20 sources) Adhesive Tape; Translations: [adhesive tape] Propensity to adverse reactions to drug [place] (20 sources) Capsaicin; Translations: [CAPSAICIN] Drug Allergy Rash [place] Comment on above: burning of skin (20 sources) Carbidopa / Levodopa Drug Allergy 017 Unknown, [place] (4 sources) Ciprofloxacin Drug Allergy [place] (20 sources) cyclobenzaprine; Translations: [CYCLOBENZAPRINE] Drug Allergy Unknown, Nausea And Vomiting, Other [place] (20 sources) Lysine; Translations: [LYSINE] Drug Allergy 016 [place] (13 sources) Morphine Drug Allergy Nausea, [place] (18 sources) oxyCODONE Drug Allergy Nausea, [place] (7 sources) Sulfamethizole Drug Allergy [place] (11 sources) Sulfonamides (Antibiotic) Propensity to adverse reactions to drug [place] (20 sources) traMADol; Translations: [TRAMADOL] Drug Allergy Unknown, Nausea/vomiting [place] Comment on above: nausea and mood sullivan ge Rash, irritable, moo d change (17 sources) Cats Claw (Uncaria Tomentosa) Propensity to adverse reactions to drug [place] (6 sources) Other Propensity to adverse reactions [place] (20 sources) Ciprofloxacin; Translations: [CIPROFLOXACIN] Drug Allergy 019 Rash, Nausea [place] Vomiting [place] (20 sources) Levodopa; Translations: [LEVODOPA] Drug Allergy [place] Comment on above: nightmares (20 sources) Nitrofurantoin; Translations: [NITROFURANTOIN] Drug Allergy [place] (14 sources) Sulfamethoxazole / Trimethoprim; Translations: [Septra TABS] Drug Allergy [facility] Work Phone: (12 sources) Sulfamethoxazole-T MP DS TABS; Translations: [Sulfamethoxazole- TMP DS TABS] Allergy to drug (finding) [facility] Work Phone: (20 sources) Baclofen; Translations: [BACLOFEN] Drug Allergy 022 Unknown [facility] (20 sources) Carbidopa Drug Allergy 019 Nausea And Vomiting, Rash [facility] (20 sources) Erythromycin Drug Allergy 019 Nausea, Other [facility] Comment on above: Severe Abd pain (5 sources) Lactose Drug Allergy 022 unknown [facility] Work Phone: (20 sources) Sulfamethoxazole Drug Allergy Nausea [facility] (20 sources) Sulfonamides (Antibiotic); Translations: [SULFA (SULFONAMIDE ANTIBIOTICS)] Allergy to substance Unknown, [facility] (20 sources) cat dander; Translations: [CAT DANDER] Propensity to adverse reactions Unknown [facility] (20 sources) cigarette smoke; Translations: [cigarette smoke] Propensity to adverse reactions Other [facility] (20 sources) Buprenorphine Drug Allergy [facility] Comment on above: with patch (20 sources) empagliflozin; Translations: [EMPAGLIFLOZIN] Drug Allergy Unknown, [facility] Comment on above: mood change, dark ur ine (20 sources) Wheat gluten extract; Translations: [GLUTEN] Drug Allergy GI Upset [facility] Work Phone: (3 sources) All Chemicals Propensity to adverse reactions Other [facility] Work Phone: (20 sources) Chlorhexidine; Translations: [CHLORHEXIDINE] Drug Allergy [facility] (1 source) Acetaminophen / HYDROcodone Drug Allergy [facility] Comment on above: severe stomac pain, vomitting (1 source) Capsaicin Drug Allergy Rash [facility] (1 source) Chlorhexidine Drug Allergy Rash [facility] (1 source) Sulfonamides (Antibiotic) Rash [facility] (1 source) Tape - Adhesive, Bandaids, Paper [facility] (16 sources) Environmental Allergies: Uncoded; Translations: [Environmental Allergies: Uncoded] Propensity to adverse reactions [facility] Comment on above: [employer] Chemicals (20 sources) Adhesive agent; Translations: [ADHESIVE] Drug Intolerance [facility] (20 sources) Chlorhexidine; Translations: [CHLORHEXIDINE GLUCONATE] Drug Allergy Other, [facility] Work Phone: (20 sources) Adhesive Tape-Silicones; Translations: [ADHESIVE TAPE-SILICONES] Drug Allergy 023 Rash [facility] Work Phone: (10 sources) Acetaminophen; Translations: [ACETAMINOPHEN] Drug Allergy Nausea And Vomiting, Unknown [facility] (14 sources) Carbidopa / Levodopa; Translations: [CARBIDOPA-LEVODOP A] Drug Allergy Other, Unknown [facility] (7 sources) Codeine; Translations: [CODEINE] Drug Allergy [facility] (1 source) Meperidine; Translations: [MEPERIDINE (PF)] Drug Allergy [facility] (2 sources) Sulfamethoxazole / Trimethoprim; Translations: [SULFAMETHOXAZOLE- TRIMETHOPRIM] Drug Allergy [facility] (1 source) Ciprofloxacin Drug Allergy [facility] (1 source) Erythromycin Drug Allergy [facility] (1 source) Ibuprofen Drug Allergy [facility] (1 source) Meperidine Drug Allergy [facility] (1 source) oxyCODONE Drug Allergy [facility] (1 source) Sulfonamides (Antibiotic) Drug allergy (disorder) [facility] (1 source) traMADol Drug Allergy [facility] (9 sources) Baclofen Drug Allergy [facility] (9 sources) Capsaicin Drug Allergy Nausea And Vomiting, Rash [facility] (9 sources) empagliflozin Drug Allergy Other [facility] (9 sources) Gluten Propensity to adverse reactions Nausea Only [facility] (9 sources) Wound Dressing Adhesive Drug Intolerance Rash [facility] (5 sources) Ibuprofen Drug Allergy [facility] (5 sources) Lactose (non-medical use) Allergy to substance [facility] (5 sources) Levodopa Allergy to substance [facility] (5 sources) Sulfonamides (Antibiotic) Drug Allergy Rash [facility] (1 source) Baclofen Drug Allergy [facility] (1 source) Buprenorphine Drug Allergy [facility] (1 source) Capsaicin Drug Allergy [facility] (1 source) Carbidopa Drug Allergy [facility] (1 source) Chlorhexidine Drug Allergy [facility] (1 source) Ciprofloxacin Drug Allergy [facility] (1 source) cyclobenzaprine Drug Allergy [facility] (1 source) empagliflozin Drug Allergy [facility] (1 source) Erythromycin Drug Allergy [facility] (1 source) Levodopa Drug Allergy [facility] (1 source) Sulfamethoxazole Drug Allergy [facility] (1 source) traMADol Drug Allergy [facility] NEGATED: Highlighted row has been ruled out!Unclassified (2 sources) Other Propensity to adverse reactions 019 [facility] NEGATED: Highlighted row has been ruled out! (4 sources) oxyCODONE Drug Allergy -[facility] Work Phone: Medications Current Medications Medication Drug Class(es) Dates Sig (Normalized) Sig (Original) acetaminophen 325 mg / HYDROcodone bitartrate 5 mg oral tablet (5 sources) Opioid Agonist Start: 06-11-2019 End: 06-14-2019 take 1 tablet by mouth every six hours as needed for pain HYDROcodone-aceta minophen (NORCO) 5-325 MG per tablet Indications: Post-operative state Take 1 tablet by mouth every 6 hours as needed for Pain for up to 3 days. 28 tablet 0 06/11/2019 06/14/2019 Active Start: 06-09-2019 HYDROcodone-ac etaminophen (NORCO) 5-325 MG per tablet 1 tablet Start: 10-22-2018 take 1 tablet by missael th every four hours as needed hydrocodone-acetaminophen 5 mg-325 mg or al tablet ; 1 tab(s) orally every 4 hours, As needed, Pain - Mod (4-6) Quantity: 0 Refills: 0 Ordered: 22-Oct-2018 Aaron Shin Start: 22-Oct-2018 Status: Discontinued Generic Substitution Allowed Start: 01-20-2018 End: 01-26-2018 take 1 tablet by mouth every four hours as needed hydrocodone-acetaminophen 5 mg-325 mg or al tablet ; 1 tab(s) orally every 4 hours, As needed for pain. Do not take if not in pain. PRN Reason: Pain - Mod (4-6) Quantity: 56 Refills: 0 Ordered: 20-Jan-2018 Matthew Arana Start: 20-Jan-2018 End: 26-Jan-2018 Status: Other Generic Substitution Allowed take 1 tablet by missael th every six hours Vicodin 5 mg-300 mg oral tablet ; 1 tab( s) orally every 6 hours Quantity: 0 Refills: 0 Ordered: 17-Jan-2018 Anat Díaz Status: Discontinued Generic Substitution Allowed allopurinol 100 mg oral tablet (4 sources) Xanthine Oxidase Inhibitor Start: 03-11-2020 take 100 mg by mouth once daily 100 mg, Oral, DAILY, First dose on Sat03/11/20 at 1430 aspirin 81 mg delayed release oral tablet (17 sources) Platelet Aggregation Inhibitor, Nonsteroidal Anti-inflammatory Drug Start: 02-05-2025 take 1 tablet by mouth once daily aspirin 81 mg EC tablet Indications: Ischemic cardiomyopathy , ST elevation myocardial infarction involving left anterior descending (LAD) coronary artery (Multi) , Arteriosclerosis of coronary artery , Hyperlipidemia, unspecified hyperlipidemia type Take 1 tablet (81 mg) by mouth once daily. 90 tablet 3 02/05/2025 Active Start: 11-28-2024 End: 02-04-2025 take 1 tablet by mouth once daily aspirin 81 mg EC tablet Indications: Ischemic cardiomyopathy , ST elevation myocardial infarction involving left anterior descending (LAD) coronary artery (Multi) , Arteriosclerosis of coronary artery , Hyperlipidemia, unspecified hyperlipidemia type Take 1 tablet (81 mg) by mouth once daily. 90 tablet 3 02/05/2025 Active Start: 01-20-2018 End: 02-16-2018 take 1 tablet by mouth twice daily at mealtime Aspirin Enteric Coated 81 mg oral delayed release tablet ; 1 tab(s) orally 2 times a day Quantity: 56 Refills: 0 Ordered: 20-Jan-2018 Matthew Arana Start: 20-Jan-2018 End: 16-Feb-2018 Status: Other Generic Substitution Allowed Comments: Swallow whole. Do not crush.Take with food or milk. Comment on above: Swallow whole. Do no t crush.Take with food or milk. atorvastatin 80 mg oral tablet (12 sources) HMG-CoA Reductase Inhibitor Start: 5 End: 5 take 1 tablet by mouth at bedtime Atorvastatin 80 mg Tablet Active 80 mg PO AT BEDTIME 30 2 November 28, 2024 1:00am Blood glucose monitoring meter (18 sources) Start: 5 Blood glucose monitoring meter Indications: Type 2 diabetes mellitus with hyperglycemia, unspecified whether fci insulin use (Multi) Use to test blood sugar up to 3 times daily as directed 1 each 11/24/2024 Active Start: 08-28-2024 End: 11-24-2024 Blood glucose monitoring met er Indications: Type 2 diabetes mellitus with hyperglycemia, unspecified whether fci insulin use (Multi) 1 each 4 times a day before meals. 1 each 08/28/2024 11/24/2024 Discontinued (Reorder) Start: 08-28-2024 End: 08-28-2025 Blood glucose monitoring met er Indications: Type 2 diabetes mellitus with hyperglycemia, unspecified whether fci insulin use (Multi) 1 each 4 times a day before meals. 1 each 08/28/2024 08/28/2025 Active End: 08-31-2024 Blood glucose monitoring met er 1 each if needed. 08/31/2024 Discontinued (Therapy completed) blood pressure monitor kit (20 sources) Start: 05-27-2024 blood pressure monitor kit Indications: HTN (hypertension), benign Use to check blood pressure once daily 1 kit 05/27/2024 Active Blood-Glucose Meter (Onetouch Ultra2 Meter) kit (20 sources) Start: 01-18-2023 Blood-Glucose Meter (Onetouch Ultra2 Meter) kit Active 0 .Route 1 0 January 18, 2023 2:29pm Type 2 diabetes mellitus Type 2 diabetes mellitus with other specified complication longterm (current) use of insulin As directed Start: 01-18-2023 Blood-Glucose Meter (Onetouch Ultra2 Meter) kit Active 0 .Route 1 January 18, 2023 2:29pm As directed Start: 01-18-2023 Blood-Glucose Meter (Onetouch Ultra2 Meter) kit Active 0 .Route 1 January 18, 2023 1:29pm As directed Start: 05-17-2022 End: 01-18-2023 Blood-Glucose Meter (Onetouc h Ultra2 Meter) kit Discontinued 0 .Route 1 0 May 17, 2022 12:00am January 18, 2023 2:29pm Type 2 diabetes mellitus Type 2 diabetes mellitus with other specified complication 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 As directed Start: 05-17-2022 End: 01-18-2023 Blood-Glucose Meter (Onetouc h Ultra2 Meter) kit Discontinued 0 .Route 1 May 17, 2022 12:00am January 18, 2023 2:29pm As directed Start: 05-17-2022 End: 01-18-2023 Blood-Glucose Meter (Onetouc h Ultra2 Meter) kit Discontinued 0 .Route 1 May 16, 2022 11:00pm January 18, 2023 1:29pm As directed Start: 05-17-2022 Blood-Glucose Meter (Onetouch Ultra2 Meter) kit Active 0 .Route 1 May 17, 2022 12:00am As directed Start: 05-17-2022 Blood-Glucose Meter (Onetouch Ultra2 Meter) kit Active 0 .Route 1 May 16, 2022 11:00pm As directed blood-glucose meter (OneTouc h Ultra2 Meter) [facility] [place], [place] (20 sources) Start: 03-11-2024 End: 03-11-2025 blood-glucose meter (OneTouc h Ultra2 Meter) [facility] [place], [place] Indications: type 2 diabetes mellitus 1 each 6 times a day. 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 1 each 02/24/2024 02/23/2025 Active Start: 10-21-2023 End: 02-24-2024 blood-glucose meter (OneTouc h Ultra2 Meter) mis Indications: Type 2 diabetes mellitus with hyperglycemia, unspecified whether fci insulin use (Multi) 1 each 6 times a day. 1 each 10/21/2023 02/24/2024 Discontinued (Reorder) Start: 10-21-2023 End: 10-20-2024 blood-glucose meter (OneTouc h Ultra2 Meter) mis Indications: Type 2 diabetes mellitus with hyperglycemia, unspecified whether fci insulin use (Multi) 1 each 6 times a day. 1 each 10/21/2023 10/20/2024 Active Start: 10-21-2023 End: 10-20-2024 blood-glucose meter (OneTouc h Ultra2 Meter) [facility] [place], [place] Indications: Type 2 diabetes mellitus with hyperglycemia, unspecified whether fci insulin use ([facility]) 1 each 6 times a day. 1 each 10/21/2023 10/20/2024 Active blood-glucose sensor (FreeSt yle Mikala 3 Plus Sensor) device (13 sources) Start: 02-03-2025 blood-glucose sensor (FreeStyle Mikala 3 Plus Sensor) device Indications: Type 2 diabetes mellitus with hyperglycemia, with long-term current use of insulin For continuous glucose monitoring. Garcia every 15 days 2 each 02/03/2025 Active Start: 11-16-2024 End: 02-03-2025 blood-glucose sensor (FreeSt yle Mikala 3 Plus Sensor) device Indications: Type 2 diabetes mellitus with hyperglycemia, with long-term current use of insulin For continuous glucose monitoring. Garcia every 15 days 2 each 11/16/2024 02/03/2025 Discontinued (Reorder) Start: 11-16-2024 blood-glucose sensor (FreeStyle Mikala 3 Plus Sensor) device Indications: Type 2 diabetes mellitus with hyperglycemia, with long-term current use of insulin For continuous glucose monitoring. Garcia every 15 days 2 each 11/16/2024 Active blood-glucose sensor (FreeSt yle Mikala 3 Sensor) device (18 sources) Start: 08-17-2024 blood-glucose sensor (FreeStyle Mikala 3 Sensor) device Indications: Type 2 diabetes mellitus with hyperglycemia, unspecified whether fci insulin use (Multi) For continuous glucose monitoring. Garcia every 15 days 2 each 08/17/2024 Active Start: 08-17-2024 End: 08-17-2024 blood-glucose sensor (FreeSt yle Mikala 3 Sensor) device Indications: Type 2 diabetes mellitus with hyperglycemia, unspecified whether fci insulin use (Multi) For continuous glucose monitoring. Garcia every 15 days 2 each 08/17/2024 08/17/2024 Discontinued calcium carbonate 500 mg chewable tablet (1 source) Start: 06-10-2019 calcium carbon ate (TUMS) chewable tablet 1,000 mg calcium chloride 0.0014 meq/ml / potassium chloride 0.004 meq/ml / sodium chloride 0.103 meq/ml / sodium lactate 0.028 meq/ml injectable solution (3 sources) Start: 04-10-2024 take 100 mL intravenously every hour 100 mL/hr, intravenous, Continuous, Starting on Sat04/10/24 at 0645, Preprocedure Start: 03-11-2020 lactated ringe rs infusion Start: 06-09-2019 End: 06-10-2019 Intravenous, at 75 mL/hr, CO NTINUOUS, Starting Sat06/09/19 at 2115, For 12 hours, Post-op carvedilol 3.125 mg oral tablet (16 sources) alpha-Adrenergic Carlos, beta-Adrenergic Carlos Start: 02-05-2025 take 1 tablet by mouth twice daily carvedilol (Coreg) 3.125 mg tablet Indications: Ischemic cardiomyopathy , ST elevation myocardial infarction involving left anterior descending (LAD) coronary artery (Multi) , Arteriosclerosis of coronary artery , Hyperlipidemia, unspecified hyperlipidemia type Take 1 tablet (3.125 mg) by mouth 2 times a day. 180 tablet 3 02/05/2025 Active Start: 11-28-2024 End: 02-04-2025 take 1 tablet by mouth twice daily carvedilol (Coreg) 3.125 mg tablet Indications: Ischemic cardiomyopathy , ST elevation myocardial infarction involving left anterior descending (LAD) coronary artery (Multi) , Arteriosclerosis of coronary artery , Hyperlipidemia, unspecified hyperlipidemia type Take 1 tablet (3.125 mg) by mouth 2 times a day. 180 tablet 3 02/05/2025 Active cefTRIAXone sodium 1 g in dextrose 5 % 50 mL IVPB (add-vantage) (1 source) Start: 03-11-2020 cefTRIAXone so dium 1 g in dextrose 5 % 50 mL IVPB (add-vantage) chlorhexidine gluconate 1.2 mg/ml mouthwash (9 sources) Start: 08-20-2023 chlorhexidine (Peridex) 0.12 % solution 08/20/2023 Active cholecalciferol 0.01 mg oral capsule (20 sources) Vitamin D Start: 07-06-2021 take 1 capsule by mouth once daily Cholecalciferol (Vitamin D3) 10 mcg (400 unit) capsule Active 25 ug PO DAILY July 06, 2021 12:00am Check with primary doctor Start: 07-06-2021 take 10 ug by mouth once daily Cholecalciferol (Vitamin D3) Active 10 MCG PO DAILY July 06, 2021 11:00am Start: 03-13-2020 take 2.5 tablets by mouth once daily Vitamin D 400 UNIT TABS tablet Take 2.5 tablets by mouth daily 60 tablet 0 03/13/2020 Active Start: 03-12-2020 Vitamin D (CHO LECALCIFEROL) tablet 1,000 Units take 1 capsule by mo [facility] once daily cholecalciferol (Vitamin D-3) 25 MCG (1000 UT) capsule Take 1 capsule (25 mcg) by mouth once daily. Active take 1 tablet by missael once daily in the morning cholecalciferol 25 mcg oral tablet ; 1 tab(s) oral once a day (in the morning) Quantity: 0 Refills: 0 Ordered: 21-May-2022 Mary Beth Aquino Generic Substitution Allowed ciprofloxacin 500 mg oral tablet (16 sources) Quinolone Antimicrobial Start: 08-03-2022 End: 08-09-2022 take 1 tablet by mouth every twelve hours ciprofloxacin 500 mg oral tablet ; 1 tab(s) orally every 12 hours Quantity: 14 Refills: 0 Ordered: 03-Aug-2022 Jodi Merino Start: 03-Aug-2022 End: 09-Aug-2022 Generic Substitution Allowed Start: 08-03-2022 End: 08-13-2022 take 1 tablet by mouth twice daily Ciprofloxacin Hcl 500 mg Tablet Discontinued 500 mg PO TWICE A DAY August 03, 2022 1:00am August 13, 2022 6:17pm UTI circaid wrap (6 sources) Start: 09-03-2022 circaid wrap A ctive 0 .Route .MEDSUPPLY 2 September 03, 2022 1:00am Wear daily, remove at bedtime Start: 09-03-2022 circaid wrap A ctive 0 .Route .MEDSUPPLY 2 September 03, 2022 12:00am Wear daily, remove at bedtime circaid wrap large (8 sources) Start: 09-03-2022 circaid wrap l arge Active 0 .Route .MEDSUPPLY 2 2 September 03, 2022 1:00am Edema of both lower extremities Localized edema edema Wear daily, remove at bedtime Start: 09-03-2022 circaid wrap l arge Active 0 .Route .MEDSUPPLY 2 September 03, 2022 1:00am Wear daily, remove at bedtime Start: 09-03-2022 circaid wrap l arge Active 0 .Route .MEDSUPPLY 2 September 03, 2022 12:00am Wear daily, remove at bedtime clopidogrel 75 mg oral tablet (16 sources) [id number] Platelet Inhibitor Start: 02-05-2025 take 1 tablet by mouth once daily clopidogrel (Plavix) 75 mg tablet Indications: Ischemic cardiomyopathy , ST elevation myocardial infarction involving left anterior descending (LAD) coronary artery (Multi) , Arteriosclerosis of coronary artery , Hyperlipidemia, unspecified hyperlipidemia type Take 1 tablet (75 mg) by mouth once daily. 90 tablet 3 02/05/2025 Active Start: 11-28-2024 End: 02-04-2025 take 1 tablet by mouth once daily clopidogrel (Plavix) 75 mg tablet Indications: Ischemic cardiomyopathy , ST elevation myocardial infarction involving left anterior descending (LAD) coronary artery (Multi) , Arteriosclerosis of coronary artery , Hyperlipidemia, unspecified hyperlipidemia type Take 1 tablet (75 mg) by mouth once daily. 90 tablet 3 02/05/2025 Active colchicine 0.5 mg / probenecid 500 mg oral tablet (10 sources) take 1 tablet by mouth once daily probenecid-colchicine 500-0.5 mg tablet Take 1 tablet by mouth once daily. Active Continuous Glucose Director Of Estate (FreeStyle Mikala 3 Casa) device (5 sources) Start: 11-24-2024 Continuous Glucose Director Of Estate (FreeStyle Mikala 3 Casa) device Use as instructed 11/24/2024 Active Continuous Glucose Sensor (FreeStyle Mikala 3 Plus Sensor) misc (5 sources) Start: 08-17-2024 Continuous Glucose Sensor (FreeStyle Mikala 3 Plus Sensor) misc For continuous glucose monitoring. Garcia every 15 days 08/17/2024 Active cranberry conc-ascorbic acid 12,600-20 mg capsule (6 sources) cranberry conc-a scorbic acid 12,600-20 mg capsule Take by mouth. Active cranberry conc-a scorbic acid 12,600-20 mg capsule Take by mouth. 0 Active cranberry conc-ascorbic acid 300-100 mg capsule (20 sources) cranberry conc-ascorbic acid 300-100 mg capsule Take by mouth. Active cranberry preparation 250 mg oral capsule (20 sources) Non-Standardized Food Allergenic Extract, Non-Standardized Plant Allergenic Extract Start: take 1 tablet by mouth once daily Cranberry Extract 250 mg tablet Active 1 mg PO DAILY August 20, 2022 3:59pm Check with primary doctor Start: 08-20-2022 take 1 tablet by missael th once daily Cranberry Extract 250 mg tablet Active 1 mg PO DAILY August 20, 2022 3:59pm Start: 08-20-2022 take 1 tablet by missael th once daily Cranberry Extract 250 mg tablet Active 1 mg PO DAILY August 20, 2022 2:59pm Start: 08-20-2022 take 1 mg by mouth once daily Cranberry Extract Active 1 MG PO DAILY August 20, 2022 3:59pm Start: 08-20-2022 take 1 mg by mouth once daily Cranberry Extract Active 1 MG PO DAILY August 20, 2022 2:59pm Start: 12-18-2021 End: 08-20-2022 take 1 tablet by mouth once daily Cranberry Extract 250 mg tablet Discontinued 1 mg PO DAILY December 18, 2021 8:59am August 20, 2022 4:02pm Check with primary doctor Start: 12-18-2021 End: 08-20-2022 take 1 tablet by mouth once daily Cranberry Extract 250 mg tablet Discontinued 1 mg PO DAILY December 18, 2021 8:59am August 20, 2022 4:02pm Start: 12-18-2021 End: 08-20-2022 take 1 tablet by mouth once daily Cranberry Extract 250 mg tablet Discontinued 1 mg PO DAILY December 18, 2021 7:59am August 20, 2022 3:02pm Start: 12-18-2021 End: 08-20-2022 take 1 mg by mouth once daily Cranberry Extract Discon tinued 1 MG PO DAILY December 18, 2021 8:59am August 20, 2022 4:02pm Start: 12-18-2021 End: 08-20-2022 take 1 mg by mouth once daily Cranberry Extract Discon tinued 1 MG PO DAILY December 18, 2021 7:59am August 20, 2022 3:02pm Start: 12-18-2021 take 1 mg by mouth once daily Cranberry Extract Active 1 MG PO DAILY December 18, 2021 7:59am Start: 12-18-2021 take 3000 mg by mout h once daily Cranberry Extract Active 3000 MG PO DAILY December 18, 2021 8:59am Start: 12-18-2021 take 250 mg by mouth twice daily Cranberry Extract Active 250 MG PO TWICE A DAY December 18, 2021 8:59am Start: 07-06-2021 End: 12-18-2021 take 250 mg by mouth once daily Cranberry Extract Disc ontinued 250 MG PO DAILY July 06, 2021 11:01am December 18, 2021 9:00am Start: 07-06-2021 End: 12-18-2021 take 1 tablet by mouth once daily Cranberry Extract 250 mg tablet Discontinued 250 mg PO DAILY July 06, 2021 12:00am December 18, 2021 9:00am Start: 07-06-2021 End: 12-18-2021 take 1 tablet by mouth once daily Cranberry Extract 250 mg tablet Discontinued 250 mg PO DAILY July 05, 2021 11:00pm December 18, 2021 8:00am Start: 07-06-2021 End: 12-18-2021 take 250 mg by mouth once daily Cranberry Extract Disc ontinued 250 MG PO DAILY July 05, 2021 11:00pm December 18, 2021 8:00am Start: 07-06-2021 End: 12-18-2021 take 250 mg by mouth once daily Cranberry Extract Disc ontinued 250 MG PO DAILY July 06, 2021 12:00am December 18, 2021 9:00am take 1 tablet by missael th once daily in the morning cranberry - oral tablet ; 1 dose oral once a day (in the morning) Quantity: 0 Refills: 0 Ordered: 21-May-2022 Mary Beth Aquino Generic Substitution Allowed CRANBERRY PO Huey e by mouth daily 0 Active Cranberry-Vitamin C (Cranberry Concentrate/VitaminC) 70744-654 MG capsule (9 sources) Cranberry-Vitami n C (Cranberry Concentrate/VitaminC) 77701-830 MG capsule Take by mouth. Active dapagliflozin 10 mg oral tablet (11 sources) Sodium-Glucose Cotransporter 2 Inhibitor Start : 01-19 End: 01-19 take 1 tablet by mouth every twenty-four hours dapagliflozin propanediol (Farxiga) 10 mg tablet Indications: ST elevation myocardial infarction involving left anterior descending (LAD) coronary artery (Multi) , Ischemic cardiomyopathy , Arteriosclerosis of coronary artery , Hyperlipidemia, unspecified hyperlipidemia type Take 1 tablet (10 mg) by mouth once every 24 hours. 30 tablet 11 01/19/2025 01/19/2025 Discontinued (Med List Cleanup) Start: 11-28-2024 take 1 tablet by missael th once daily Dapagliflozin Propanediol (Farxiga) 10 mg Tablet Active 10 mg PO DAILY 30 November 28, 2024 1:00am End: 01-05-2025 take 1 tablet by mouth every twenty-four hours dapagliflozin propanediol (Farxiga) 10 mg Take 1 tablet (10 mg) by mouth once every 24 hours. 01/05/2025 Discontinued (Med List Cleanup) diclofenac sodium 0.01 mg/mg topical gel (20 sources) Nonsteroidal Anti-inflammatory Drug Start: 08-05-2023 End: 08-21-2023 diclofenac sodium (Voltaren) 1 % gel gel Start: 06-18-2023 apply 4 g topically twice daily as needed for pain Diclofenac Sodium 1 % gel Active 4 g TOPICAL TWICE A DAY as needed for Muscle/joint pain 100 6 June 18, 2023 12:00am Start: 03-14-2022 Diclofenac Sod ium (Voltaren Arthritis Pain) 1 % gel Active 4 GM TOPICAL .QID March 14, 2022 9:28am Start: 10-31-2021 End: 03-14-2022 apply 4 g topically four times daily as needed for pain Diclofenac Sodium 1 % gel Discontinued 4 g TOPICAL .QID as needed for Neck pain/stiffness 100 3 October 31, 2021 1:00am March 14, 2022 9:28am Start: 10-31-2021 End: 03-14-2022 apply 4 g topically four times daily Diclofenac Sodium Discontinued 4 GM TOPICAL .QID 100 October 31, 2021 1:00am March 14, 2022 9:28am Elastic back brace (1 source) Start: 04-05-2025 Elastic back b race Active 0 .Route .MEDSUPPLY 1 0 April 05, 2025 12:00am Low back pain Low back pain, unspecified low back pain (M54.50) As directed Elastic right knee brace (1 source) Start: 04-05-2025 Elastic right knee brace Active 0 .Route .MEDSUPPLY 1 0 April 05, 2025 12:00am Right knee pain Pain in right knee right knee pain (M25.561) As directed Electronic blood pressure cu ff (8 sources) Start: 05-20-2023 Electronic blo od pressure cuff Active 0 .Route .MEDSUPPLY 1 0 May 20, 2023 12:00am Hypertension Essential (primary) hypertension Hypertension (ICD 10: I10) As directed Start: 05-20-2023 Electronic blo od pressure cuff Active 0 .Route .MEDSUPPLY 1 May 20, 2023 12:00am As directed Start: 05-20-2023 Electronic blo od pressure cuff Active 0 .Route .MEDSUPPLY 1 May 19, 2023 11:00pm As directed 0.4 ml enoxaparin sodium 100 mg/ml prefilled syringe (12 sources) Low Molecular Weight Heparin Start: 04-25-2024 End: 05-14-2024 enoxaparin (Lovenox) 40 MG/0.4ML solution prefilled syringe 05/02/2024 Active estradiol 0.1 mg/ml vaginal cream (11 sources) Estrogen Start: 07-15-2024 estradiol (Est race) 0.1 MG/GM vaginal cream Indications: Recurrent UTI Apply 1 g nightly 2 times per week. 42.5 g 07/15/2024 Active Start: 05-27-2020 estradiol (EST RACE VAGINAL) 0.1 MG/GM vaginal cream 1 gram vaginally twice weekly. 1 Tube 3 05/27/2020 Active ferrous sulfate 325 mg oral tablet (20 sources) Start: 09-02-2024 End: 09-02-2025 take 1 tablet by mouth twice daily ferrous sulfate, 325 mg ferrous sulfate, (FeroSuL) tablet Indications: Iron deficiency Take 1 tablet (325 mg) by mouth 2 times a day. 60 tablet 3 09/02/2024 12/03/2024 Discontinued (Therapy completed) Start: 05-27-2024 ferrous sulfat e 325 (65 Fe) MG EC tablet Take 1 tablet twice daily. Do not crush, chew, or split. 05/27/2024 Active Start: 05-26-2024 End: 05-26-2025 take 1 tablet by mouth once daily at breakfast ferrous sulfate, 325 mg ferrous sulfate, tablet Indications: Anemia, unspecified type Take 1 tablet (325 mg) by mouth once daily with breakfast. 30 tablet 11 05/26/2024 07/21/2024 Discontinued (Duplicate order) fluconazole 150 mg oral tablet (1 source) Azole Antifungal Start: 05-11-2024 End: 05-11-2024 take 1 tablet by mouth once fluconazole (Diflucan) 150 mg tablet Indications: vulvovaginal candidiasis Take 1 tablet (150 mg) by mouth 1 time for 1 dose. 1 tablet 05/11/2024 05/11/2024 Active FLUoxetine 20 mg oral tablet (9 sources) Serotonin Reuptake Inhibitor take 1 tablet by mouth in the morning FLUoxetine HCl, PMDD, 20 MG tablet Take 20 mg by mouth in the morning. Active FreeStyle Mikala 3 Casa misc (18 sources) Start: 08-17-2024 FreeStyle Libr e 3 Casa misc Indications: Type 2 diabetes mellitus with hyperglycemia, unspecified whether fci insulin use (Multi) Use as instructed 1 each 08/17/2024 Active Start: 08-17-2024 End: 08-17-2024 FreeStyle Mikala 3 Casa mis c Indications: Type 2 diabetes mellitus with hyperglycemia, unspecified whether fci insulin use (Multi) Use as instructed 1 each 08/17/2024 08/17/2024 Discontinued furosemide 40 mg oral tablet (8 sources) Loop Diuretic Start: 02-05-2025 End: 03-21-2026 take 1 tablet by mouth once daily furosemide (Lasix) 40 mg tablet Indications: Edema, unspecified type Take 1 tablet (40 mg) by mouth once daily. 30 tablet 11 03/21/2025 03/21/2026 Active gabapentin 600 mg oral tablet (20 sources) Anti-epileptic Agent Start: 08-31-2024 End: 02-24-2025 take 2 capsules by mouth once daily gabapentin (Neurontin) 300 mg capsule Indications: Spinal stenosis of lumbar region, unspecified whether neurogenic claudication present Take 2 capsules (600 mg) by mouth once daily. 180 capsule 1 08/31/2024 Active Start: 04-10-2024 take 1 capsule by mouth once 6 00 mg, oral, Once, On Sat04/10/24 at 0645, For 1 dose, Preprocedure, Capsules may be opened and sprinkled on food (eg, applesauce, orange juice, pudding Start: 10-17-2021 Gabapentin 600 MG Oral Tablet Quantity: 270 Refills: 0 Ordered: 19-Jun-2022 DO Start : 17-Oct-2021 Complete Start: 07-06-2021 End: 08-23-2025 take 1 tablet by mouth once daily at bedtime gabapentin (Neurontin) 600 mg tablet Indications: Spinal stenosis of lumbar region, unspecified whether neurogenic claudication present Take 1 tablet (600 mg) by mouth once daily at bedtime. 90 tablet 3 02/24/2025 08/23/2025 Active Start: 03-11-2020 take 300 mg by mouth twice daily 300 mg, Oral, 2 TIMES DAILY, First dose on Sat03/11/20 at 1230 Start: 06-09-2019 End: 06-09-2019 gabapentin (NEURONTIN) capsu le 300 mg glucagon (rdna) 1 mg injection (2 sources) Antihypoglycemic Agent Start: 03-11-2020 glucago n (rDNA) injection 1 mg Start: 06-09-2019 take 1 mL intravenou s route every hour 1 mg, Intramuscular, PRN, Low blood sugar, Blood glucose less than 70 mg/dL and patient NOT ALERT or NPO and does not have IV access., Starting Sat06/09/19 at 2057 After administration, attempt intravenous access and start D5W at 100 mL/hr. Repeat blood glucose in 15 minutes x2 and notify provider. 150 ml glucose 50 mg/ml injection (6 sources) Start: 03-11-2020 glucose (GLUTO SE) 40 % oral gel 15 g Start: 03-11-2020 dextrose 50 % IV solution Start: 03-11-2020 dextrose 5 % s olution Start: 06-09-2019 15 g, Oral, AK N, Low blood sugar, Starting Sat06/09/19 at 2057 If blood glucose less than 50 mg/dL and patient ALERT and TOLERATING PO, give 2 tubes glucose gel. If blood glucose less than 70 mg/dL and patient ALERT and TOLERATING PO, give 1 tube glucose gel. Repeat blood glucose in 15 minutes. If blood glucose is less than 70 mg/dL, repeat treatment and recheck blood glucose in 15 minutes x2 and notify provider. Start: 06-09-2019 12.5 g, Intrav enous, PRN, Low blood sugar, Blood glucose less than 70 mg/dL and patient NOT ALERT or NPO., Starting Sat06/09/19 at 2057 If patient does not respond within 5 minutes, repeat dose x1. Start D5W at 100 mL/hour until ordering provider can be reached. Repeat blood glucose in 15 minutes. If blood glucose is less than 70 mg/dL, repeat treatment and recheck blood glucose in 15 minutes x2. If using Glucostabilizer, dose as instructed per system. Start: 06-09-2019 100 mL/hr, Int ravenous, at 100 mL/hr, PRN, Low blood sugar, Starting Sat06/09/19 at 2057 Start infusion following administration of dextrose 50% or glucagon. Handicap Placard (20 sources) Start: 12-10-[address] Active 0 .ROUTE .MEDSUPPLY 1 0 December 10, 2022 3:32pm Other reduced mobility As directed, length of time 3 years Start: 12-10-[address] Active 0 .ROUTE .MEDSUPPLY December 10, 2022 2:32pm As directed, length of time 3 years Start: 12-10-[address] Active 0 .ROUTE .MEDSUPPLY December 10, 2022 3:32pm As directed, length of time 3 years Start: 11-16-2022 End: 12-10-2022 Handicap Placard Discontinue d 0 .ROUTE .MEDSUPPLY 1 0 November 16, 2022 1:00am December 10, 2022 3:32pm Other reduced mobility As directed, length of time 3 years Start: 11-16-2022 End: 12-10-2022 Handicap Placard Discontinue d 0 .ROUTE .MEDSUPPLY 1 November 16, 2022 12:00am December 10, 2022 2:32pm As directed, length of time 3 years Start: 11-16-2022 End: 12-10-2022 Handicap Placard Discontinue d 0 .ROUTE .MEDSUPPLY 1 November 16, 2022 1:00am December 10, 2022 3:32pm As directed, length of time 3 years Start: 05-01-2022 End: 11-28-2022 Handicap Placard Discontinue d 0 .ROUTE .MEDSUPPLY 1 0 May 01, 2022 12:00am November 28, 2022 9:29am Other reduced mobility As directed, length of time 3 years Start: 05-01-2022 End: 11-28-2022 Handicap Placard Discontinue d 0 .ROUTE .MEDSUPPLY 1 April 30, 2022 11:00pm November 28, 2022 8:29am As directed, length of time 3 years Start: 05-01-2022 End: 11-28-2022 Handicap Placard Discontinue d 0 .ROUTE .MEDSUPPLY 1 May 01, 2022 12:00am November 28, 2022 9:29am As directed, length of time 3 years Start: 05-01-[address] Active 0 .ROUTE .MEDSUPPLY 1 April 30, 2022 11:00pm As directed, length of time 3 years Handicap Placard MISC (8 sources) Start: 02-22-2016 Handicap Placard MISC by Does not apply route Two placards. Expiration 5 years. 2 each 0 02/22/2016 Active hydrocortisone 10 mg/ml topical cream (6 sources) Corticosteroid hydrocortisone 1 % cream Apply topically 2 times daily Apply topically 2 times daily. 0 Active hydrOXYzine hydrochloride 25 mg oral tablet (2 sources) Antihistamine Start: 05-18-2019 hydrOXYzine (ATARAX) 25 MG tablet ibuprofen 600 mg oral tablet (4 sources) Nonsteroidal Anti-inflammatory Drug Start: 06-11-2019 take 1 tablet by mouth every six hours as needed for pain ibuprofen (ADVIL;MOTRIN) 600 MG tablet Take 1 tablet by mouth every 6 hours as needed for Pain 60 tablet 0 06/11/2019 Active Start: 06-09-2019 take 600 mg by mouth every six hours 600 mg, Oral, EVERY 6 HOURS, First dose on Sat06/09/19 at 2200 Do not crush or chew. insulin degludec 100 unt/ml injectable solution (20 sources) Insulin Analog Start: 05-19-2024 End: 11-15-2024 insulin degludec (Tresiba) 100 UNIT/ML injection Inject 35 Units under the skin. 05/19/2024 Active Start: 02-24-2024 Tresiba FlexTo uch U-100 100 unit/mL (3 mL) injection 02/24/2024 Active Start: 10-21-2023 End: 11-15-2024 insulin degludec (Tresiba U- 100 Insulin) 100 unit/mL injection Indications: Type 2 diabetes mellitus with hyperglycemia, unspecified whether fci insulin use (Multi) Inject 35 Units under the skin once daily in the morning. 31.5 mL 1 05/19/2024 11/15/2024 Active 3 ml insulin glargine 100 unt/ml pen injector (20 sources) Insulin Analog Start: 11-26-2024 Insulin Glargi ne (Lantus Solostar U-100 Insulin) 100 unit/mL (3 mL) insulin pen Active 35 U SC DAILY November 26, 2024 1:00am DM Start: 11-24-2024 End: 11-24-2025 inject 38 [IU] by subcutaneous injection once daily in the morning insulin glargine (Lantus) 100 unit/mL (3 mL) pen Indications: Type 2 diabetes mellitus with hyperglycemia, unspecified whether fci insulin use (Multi) Inject 38 Units under the skin once daily in the morning. Take as directed per insulin instructions. 45 mL 3 03/18/2025 10:56 AM EDT 11/24/2024 11/24/2025 Active Start: 11-24-2024 End: 11-24-2025 insulin glargine (Lantus) 10 0 UNIT/ML pen Inject 38 Units under the skin. 11/24/2024 11/24/2025 Active Start: 08-17-2024 End: 11-16-2025 inject 35 [IU] by subcutaneous injection once daily in the morning insulin glargine (Lantus) 100 unit/mL (3 mL) pen Indications: Type 2 diabetes mellitus with hyperglycemia, unspecified whether fci insulin use (Multi) Inject 35 Units under the skin once daily in the morning. Take as directed per insulin instructions. 30 each 3 11/16/2024 11/24/2024 Discontinued (Reorder) Start: 09-09-2023 Lantus SoloSta r 100 UNIT/ML pen 09/09/2023 Active Start: 11-29-2022 End: 11-26-2024 Insulin Glargine (Lantus Valeria ostar U-100 Insulin) 100 unit/mL (3 mL) insulin pen Discontinued 25 U SC DAILY 15 3 July 23, 2023 2:52pm November 26, 2024 4:31pm Diabetes mellitus Type 2 diabetes mellitus without complications DM Start: 11-16-2022 End: 11-29-2022 Insulin Glargine (Lantus Valeria ostar U-100 Insulin) 100 unit/mL (3 mL) insulin pen Discontinued 30 U SC TWICE DAILY WITH MEALS November 16, 2022 3:06pm November 29, 2022 2:07pm DM Start: 08-20-2022 End: 11-16-2022 Insulin Glargine (Lantus Valeria ostar U-100 Insulin) 100 unit/mL (3 mL) insulin pen Discontinued 33 U SC TWICE DAILY WITH MEALS August 20, 2022 4:00pm November 16, 2022 3:06pm DM Start: 08-13-2022 End: 08-20-2022 Insulin Glargine (Lantus Valeria ostar U-100 Insulin) 100 unit/mL (3 mL) insulin pen Discontinued 35 U SC TWICE DAILY WITH MEALS 1 0 August 13, 2022 6:25pm August 20, 2022 4:02pm DM Start: 07-17-2022 End: 08-13-2022 Insulin Glargine (Lantus Valeria ostar U-100 Insulin) 100 unit/mL (3 mL) insulin pen Discontinued 35 U SC DAILY July 17, 2022 8:13am August 13, 2022 6:25pm DM Start: 02-23-2022 End: 07-17-2022 inject 35 [IU] by subcutaneous injection in the morning Insulin Glargine (Lantus Solostar U-100 Insulin) 100 unit/mL (3 mL) insulin pen Discontinued 0 SC .COMPLEX 30 May 23, 2022 9:11am July 17, 2022 8:14am take 35 units subcut in the am and 35 units in the pm Start: 02-08-2022 End: 02-23-2022 inject 40 [IU] by subcutaneous injection in the morning, then inject 39 [IU] by subcutaneous injection in the evening Insulin Glargine (Lantus Solostar U-100 Insulin) 100 unit/mL (3 mL) insulin pen Discontinued 0 SC .COMPLEX February 08, 2022 1:23pm February 23, 2022 11:28am take 40 units subcut in the am and 39 units in the pm Start: 12-18-2021 End: 02-08-2022 inject 39 [IU] by subcutaneous injection in the morning, then inject 40 [IU] by subcutaneous injection in the evening Insulin Glargine (Lantus Solostar U-100 Insulin) 100 unit/mL (3 mL) insulin pen Discontinued 0 SC .COMPLEX 30 0 January 01, 2022 11:28am February 08, 2022 1:25pm take 39 units subcut in the am and 40 units in the pm Start: 09-18-2021 End: 12-18-2021 inject 36 [IU] by subcutaneous injection in the morning, then inject 42-43 [IU] by subcutaneous injection in the evening Insulin Glargine (Lantus Solostar U-100 Insulin) 100 unit/mL (3 mL) insulin pen Discontinued 0 SC .COMPLEX 60 1 October 03, 2021 11:42am December 18, 2021 9:01am take 36 units subcut in the am and 42-43 units in the pm Start: 07-06-2021 End: 09-18-2021 inject 26 [IU] by subcutaneous injection in the morning, then inject 40 [IU] by subcutaneous injection in the evening Insulin Glargine (Lantus Solostar U-100 Insulin) 100 unit/mL (3 mL) insulin pen Discontinued 0 SC .COMPLEX July 06, 2021 12:00am September 18, 2021 11:09am take 26units subcut in the am and 40units in the pm Start: 03-18-2020 End: 07-06-2021 Insulin Glargine 100 unit/mL (3 mL) insulin pen Discontinued 10 U SC AT BEDTIME March 18, 2020 12:00am July 06, 2021 11:00am Start: 06-10-2019 inject 11 [IU] by jean bcutaneous injection once daily 11 Units, Subcutaneous, NIGHTLY, First dose on Sat03/11/20 at 2100 Start: 06-09-2019 insulin glargi ne (LANTUS) injection vial 6 Units Start: 01-26-2019 LANTUS SOLOSTA R 100 UNIT/ML injection pen Inject 28 Units into the skin 2 times daily 0 01/26/2019 Active Start: 01-26-2019 LANTUS SOLOSTA R 100 UNIT/ML injection pen Inject 11 Units into the skin nightly 0 01/26/2019 Active Lantus 100 units /mL subcutaneous solution ; 35 units subcutaneous Quantity: 0 Refills: 0 Ordered: 21-May-2022 Mary Beth Aquino Generic Substitution Allowed insulin glargine (LANTUS) 100 UNIT/ML injection vial Inject 11 Units into the skin nightly 0 Active Lantus SoloStar SOLN Refills: 0 DO Active Lantus SoloStar SOLN Refills: 0 Active 3 ml insulin lispro 100 unt/ml cartridge (20 sources) Insulin Analog Start: 11-26-2024 Insulin Lispro (Humalog U-100 Insulin) 100 unit/mL cartridge Active 10 U SC THREE TIMES A DAY November 26, 2024 1:00am diabetes plus sliding scale Start: 11-24-2024 insulin lispro (HumaLOG) 100 unit/mL pen Indications: Type 2 diabetes mellitus with hyperglycemia, unspecified whether fci insulin use (Multi) Inject 10 units plus sliding scale three times daily with meals. Max daily dose 60 units. 60 mL 3 03/04/2025 12:27 PM EDT 11/24/2024 Active Start: 08-17-2024 End: 11-16-2025 inject 10 [IU] by subcutaneous injection three times daily insulin lispro (HumaLOG) 100 unit/mL injection Indications: Type 2 diabetes mellitus with hyperglycemia, unspecified whether fci insulin use (Multi) Inject 10 Units under the skin 3 times daily (morning, midday, late afternoon). Take as directed per insulin instructions. 30 each 3 11/16/2024 11/24/2024 Discontinued (Reorder) Start: 05-19-2024 End: 11-15-2024 inject 10 [IU] by subcutaneous injection once daily, then inject 5 [IU] by subcutaneous injection before breakfast, then inject 9 [IU] by subcutaneous injection before lunch insulin lispro-aabc (Lyumjev U-100 Insulin) 100 unit/mL solution Indications: Type 2 diabetes mellitus with hyperglycemia, unspecified whether bed bug exterminator insulin use (Multi) Inject 10 Units under the skin once daily. Inject 5 units before breakfast and 9 units before lunch and dinner 45 mL 5 05/19/2024 08/31/2024 Discontinued (Therapy completed) Start: 10-21-2023 End: 05-19-2024 insulin lispro-aabc (Lyumjev U-100 Insulin) 100 unit/mL solution Indications: Type 2 diabetes mellitus with hyperglycemia, unspecified whether fci insulin use (Multi) Inject 5 units before breakfast and 9 units before lunch and dinner 45 mL 2 02/24/2024 05/19/2024 Discontinued (Reorder) Start: 03-19-2023 HumaLOG Joseph KwikPen 100 UNIT/ML Subcutaneous Solution Pen-injector as directed Quantity: 0 Refills: 0 Ordered: 19-Mar-2023 DO Start : 19-Mar-2023 Active Start: 11-28-2022 HumaLOG KwikPe n 100 UNIT/ML Subcutaneous Solution Pen-injector Quantity: 15 Refills: 0 Ordered: 01-Mar-2023 DO Start : 28-Nov-2022 Complete Start: 11-16-2022 End: 11-26-2024 Insulin Lispro (Humalog U-10 0 Insulin) 100 unit/mL cartridge Discontinued 9 U SC THREE TIMES A DAY 8.1 0 September 30, 2023 11:09am November 26, 2024 4:31pm Diabetes mellitus Type 2 diabetes mellitus without complications diabetes plus sliding scale Start: 08-20-2022 End: 11-16-2022 Insulin Lispro (Humalog U-10 0 Insulin) 100 unit/mL cartridge Discontinued 14 U SC THREE TIMES A DAY August 20, 2022 4:00pm November 16, 2022 3:06pm Diabetes mellitus Type 2 diabetes mellitus without complications diabetes plus sliding scale Start: 08-13-2022 End: 08-20-2022 Insulin Lispro (Humalog U-10 0 Insulin) 100 unit/mL cartridge Discontinued 12 U SC THREE TIMES A DAY 18 August 13, 2022 6:25pm August 20, 2022 4:02pm Diabetes mellitus Type 2 diabetes mellitus without complications diabetes plus sliding scale Start: 05-09-2022 End: 08-13-2022 Insulin Lispro (Humalog U-10 0 Insulin) 100 unit/mL cartridge Discontinued 20 U SC THREE TIMES A DAY 18 May 09, 2022 10:34am August 13, 2022 6:25pm Diabetes mellitus Type 2 diabetes mellitus without complications diabetes plus sliding scale Start: 03-14-2022 End: 05-09-2022 Insulin Lispro (Humalog U-10 0 Insulin) 100 unit/mL cartridge Discontinued 10 U SC THREE TIMES A DAY March 14, 2022 9:28am May 09, 2022 10:35am diabetes plus sliding scale Start: 02-08-2022 End: 03-14-2022 Insulin Lispro (Humalog U-10 0 Insulin) 100 unit/mL cartridge Discontinued 7 U SC THREE TIMES A DAY 15 February 23, 2022 11:27am March 14, 2022 9:28am plus sliding scale Start: 09-20-2021 End: 02-08-2022 Insulin Lispro (Humalog U-10 0 Insulin) 100 unit/mL cartridge Discontinued 5 U SC THREE TIMES A DAY December 18, 2021 8:58am February 08, 2022 1:25pm plus sliding scale Start: 09-18-2021 End: 09-20-2021 Insulin Lispro 100 unit/mL i nsulin pen Discontinued 5 U SC THREE TIMES A DAY 15 September 18, 2021 1:00am September 20, 2021 12:12pm Start: 03-11-2020 End: 03-11-2020 insulin lispro (HUMALOG) inj ection vial 0-12 Units Start: 06-10-2019 insulin lispro (HUMALOG) injection vial 0-6 Units Start: 06-09-2019 End: 06-10-2019 0-3 Units, Subcutaneous, NIG HTLY, First dose on Sat06/09/19 at 2115 If continuous tube feedings/TPN/NPO, give correction dose based on result, no reduction in dose. If eating or bolus tube feeding: Corrective Bedtime (50%) Low Dose Algorithm Glucose: Dose: 70-139 &nbsp ; &nb sp; No Insulin 140-249 1 Unit 250-349 2 Units Over 350 3 Units HumaLOG KwikPen 100 units/mL injectable solution ; 1 tab(s) injectable Quantity: 0 Refills: 0 Ordered: 21-May-2022 Mary Beth Aquino Generic Substitution Allowed ivabradine 7.5 mg oral tablet (14 sources) Hyperpolarization-activated Cyclic Nucleotide-gated Channel Carlos Start: 03-19-2023 Ivabradine HCl 7.5 MG tablet Take by mouth. 03/19/2023 Active 1 ml ketorolac tromethamine 30 mg/ml cartridge (2 sources) Nonsteroidal Anti-inflammatory Drug, Cyclooxygenase Inhibitor Start: 03-11-2020 End: 03-16-2020 ketorolac (TORADOL) injection 15 mg left wrist splint (2 sources) Start: 08-15-2021 left wrist splint Active 0 .Route .MEDSUPPLY August 15, 2021 12:00pm Use as directed while sleeping Start: 08-15-2021 left wrist spl int Active 0 .Route .MEDSUPPLY August 15, 2021 1:00am Use as directed while sleeping losartan potassium 25 mg oral tablet (20 sources) Angiotensin 2 Receptor Carlos Start: 02-05-2025 take 1 tablet by mouth once daily losartan (Cozaar) 25 mg tablet Indications: Ischemic cardiomyopathy , ST elevation myocardial infarction involving left anterior descending (LAD) coronary artery (Multi) , Arteriosclerosis of coronary artery , Hyperlipidemia, unspecified hyperlipidemia type Take 1 tablet (25 mg) by mouth once daily. 90 tablet 3 02/05/2025 Active Start: 11-28-2024 End: 02-04-2025 take 1 tablet by mouth once daily losartan (Cozaar) 25 mg tablet Indications: Ischemic cardiomyopathy , ST elevation myocardial infarction involving left anterior descending (LAD) coronary artery (Multi) , Arteriosclerosis of coronary artery , Hyperlipidemia, unspecified hyperlipidemia type Take 1 tablet (25 mg) by mouth once daily. 90 tablet 3 02/05/2025 Active Start: 06-04-2023 End: 06-04-2023 take 2 tablets by mouth once daily Losartan 25 mg tablet Discontinued 50 mg PO DAILY June 04, 2023 10:55am June 04, 2023 11:20am Hypertension Diabetes mellitus Essential (primary) hypertension Type 2 diabetes mellitus without complications BP Start: 03-19-2023 End: 12-01-2024 take 1 tablet by mouth once daily Losartan 50 mg tablet Discontinued 50 mg PO DAILY 90 1 June 04, 2023 12:00am November 28, 2024 12:31pm Start: 11-06-2021 End: 06-04-2023 take 1 tablet by mouth once daily Losartan 25 mg tablet Discontinued 25 mg PO DAILY 30 4 February 07, 2023 12:45pm February 22, 2023 8:49am Hypertension Diabetes mellitus Essential (primary) hypertension Type 2 diabetes mellitus without complications BP methenamine hippurate 1000 m g oral tablet (20 sources) Start: 11-26-2024 Methenamine Hi ppurate 1 gram tablet Active 1 g PO Q12H November 26, 2024 1:00am Start: 07-15-2024 End: 08-16-2025 take 1 tablet by mouth twice daily methenamine hippurate (Hiprex) 1 gram tablet Take 1 tablet (1 g) by mouth 2 times a day. 09/10/2024 Active methocarbamol 500 mg oral tablet (20 sources) Muscle Relaxant Start: 04-21-2024 End: 05-27-2024 take 2 tablets by mouth every eight hours methocarbamol (Robaxin) 500 mg tablet Indications: Neurogenic claudication due to lumbar spinal stenosis Take 2 tablets (1,000 mg) by mouth every 8 hours for 10 days. 60 tablet 04/21/2024 05/27/2024 Discontinued (Therapy completed) Start: 08-13-2022 End: 11-28-2022 take 1 tablet by mouth every eight hours as needed for muscle spasms Methocarbamol 750 mg tablet Discontinued 750 mg PO Q8H as needed for muscle spasm 21 0 August 13, 2022 6:23pm November 28, 2022 9:30am Start: 08-03-2022 End: 09-01-2022 take 2 tablets by mouth every eight hours Methocarbamol 500 mg Tablet Discontinued 1000 mg PO Q8H August 03, 2022 1:00am August 13, 2022 6:18pm Check with primary doctor Start: 08-03-2022 End: 08-13-2022 take 1000 mg by mouth every eight hours Methocarbamol Discontinued 1000 MG PO Q8H August 03, 2022 1:00am August 13, 2022 6:18pm methocarbamol 75 0 mg oral tablet Quantity: 0 Refills: 0 Ordered: 31-Oct-2018 Kenya Yost Status: Other Generic Substitution Allowed Comment on above: May cause drowsiness . Alcohol may intensify this effect. Use care when operating dangerous machinery. 1 ml morphine sulfate 4 mg/ml injection (2 sources) Opioid Agonist Start: 03-11-2020 morphine sulfate (PF) injection 2 mg Start: 03-10-2020 End: 03-10-2020 morphine injection 4 mg Multiple Vitamin (MULTI-VITAMIN DAILY PO) (8 sources) Multiple Vitamin (MULTI-VITAMIN DAILY PO) Take by mouth 0 Active Multiple Vitamins-Minerals (MULTIVITAMIN ADULT PO) (1 source) Multiple Vitamin s-Minerals (MULTIVITAMIN ADULT PO) Take 1 tablet by mouth 0 Active Ffrrxnko-Ohi-Sy-Lycopen-Lut ein ([facility]) 1 EACH tablet (5 sources) Start: 02-27-2019 take 1 tablet by mouth once daily Usrhlmjm-Ful-Pg-Lycopen-Yuli tein [facility] 1 EACH tablet Active 1 EACH PO DAILY February 27, 2019 4:31pm Start: 02-27-2019 take 1 tablet by missael th once daily Gtivcinc-Ysi-Pc-Lycopen-Lutein ([facility] 1 EACH tablet Active 1 EACH PO DAILY February 27, 2019 12:00am Multivitamin preparation (9 sources) Start: 08-03-2022 take 1 tablet by mouth once daily Multivitamin Active 1 TABLET PO DAILY August 03, 2022 1:00am Start: 08-03-2022 take 1 tablet by missael th once daily Multivitamin Active 1 TABLET PO DAILY August 03, 2022 12:00am take 1 tablet by missael th once daily in the morning multivitamin Multiple Vitamins oral tablet ; 1 tab(s) oral once a day (in the morning) Quantity: 0 Refills: 0 Ordered: 21-May-2022 Mary Beth Aquino Generic Substitution Allowed multivitamin ; o rally once a day Quantity: 0 Refills: 0 Ordered: 17-Jan-2018 Anat Díaz Status: Discontinued Generic Substitution Allowed multivitamin tablet (20 sources) take 1 tablet by missael th once daily multivitamin tablet Take 1 tablet by mouth once daily. Active take 1 tablet by mouth once rickey y multivitamin tablet Take 1 tablet by mouth once daily. 0 Active Multivitamin Tablet (8 sources) Start: 08-03-2022 Multivitamin T ablet Active 1 {tbl} PO DAILY August 03, 2022 1:00am supplement Start: 08-03-2022 Multivitamin T ablet Active 1 {tbl} PO DAILY August 03, 2022 1:00am Start: 08-03-2022 Multivitamin T ablet Active 1 {tbl} PO DAILY August 03, 2022 12:00am nitroglycerin 0.4 mg sublingual tablet (5 sources) Nitrate Vasodilator Start: 01-19-2025 End: 01-19-2026 nitroglycerin (Nitrostat) 0.4 mg SL tablet Indications: ST elevation myocardial infarction involving left anterior descending (LAD) coronary artery (Multi) , Ischemic cardiomyopathy , Arteriosclerosis of coronary artery , Hyperlipidemia, unspecified hyperlipidemia type Place 1 tablet (0.4 mg) under the tongue every 5 minutes if needed for chest pain. May repeat dose every 5 minutes for up to 3 doses total. 100 tablet 11 01/19/2025 01/19/2026 Active omeprazole 40 mg delayed release oral capsule (20 sources) Proton Pump Inhibitor Start: 03-22-2025 take 1 capsule by mouth twice daily before mealtime omeprazole (PriLOSEC) [address] capsule Indications: Eosinophilic esophagitis TAKE ONE CAPSULE BY MOUTH TWICE A DAY BEFORE MEALS DO NOT CRUSH OR CHEW 60 capsule 2 03/22/2025 Active Start: 11-13-2024 End: 02-11-2025 take 1 capsule by mouth twice daily before mealtime omeprazole (PriLOSEC) [address] capsule Indications: Eosinophilic esophagitis Take 1 capsule (40 mg) by mouth 2 times a day before meals. Do not crush or chew. 60 capsule 2 11/13/2024 Active Start: 05-17-2023 Omeprazole 20 MG Oral Capsule Delayed Release PRN Quantity: 0 Refills: 0 Ordered: 17-May-2023 DO Start : 17-May-2023 Active Start: 11-28-2022 take 2 capsules by m outh once daily as needed for gastroesophageal reflux disease Omeprazole 20 mg capsule,delayed release(DR/EC) Active 40 mg PO DAILY as needed for reflux November 28, 2022 9:30am Start: 06-08-2021 End: 11-28-2022 take 1 capsule by mouth once daily Omeprazole 20 mg capsule,delayed release(DR/EC) Discontinued 20 mg PO DAILY July 06, 2021 12:00am November 28, 2022 9:30am reflux oxyCODONE hydrochloride 5 mg oral tablet (20 sources) Opioid Agonist Start: 04-24-2024 End: 05-11-2024 take 1 tablet by mouth every four hours for pain oxyCODONE (Roxicodone) 5 mg immediate release tablet Indications: Neurogenic claudication due to lumbar spinal stenosis Take 1 tablet (5 mg) by mouth every 4 hours if needed for severe pain (7 - 10). 40 tablet 04/24/2024 05/11/2024 Discontinued (Med List Cleanup) Start: 08-03-2022 End: 08-09-2022 take 1 tablet by mouth every four hours oxyCODONE 5 mg oral tablet ; take 1 tab orally every 4-6 hours as needed for pain x 7 days Quantity: 42 Refills: 0 Ordered: 03-Aug-2022 Jodi Merino Start: 03-Aug-2022 End: 09-Aug-2022 Generic Substitution Allowed Comments: Caution federal law prohibits the transfer of this drug to any person other than the person for whom it was prescribed.It is very important that you take or use this exactly as directed. Do not skip doses or discontinue unless directed by your doctor.May cause drowsiness or dizziness.This prescription cannot be refilled.Using more of this medication than prescribed may cause serious breathing problems. Start: 08-03-2022 End: 08-13-2022 take 1 capsule by mouth every four hours as needed for pain Oxycodone 5 mg Capsule Discontinued 5 mg PO Q4H as needed for Pain August 03, 2022 1:00am August 13, 2022 6:19pm Start: 03-18-2020 End: 07-06-2021 Oxycodone 5 mg tablet Discon tinued 1 {tbl} PO EVERY 6 HOURS NEEDED as needed for Pain Or Fever March 18, 2020 12:00am July 06, 2021 11:10am Start: 03-12-2020 End: 07-06-2021 take 1 tablet by mouth every six hours as needed Oxycodone Discontinued 1 TABLET PO EVERY 6 HOURS NEEDED March 18, 2020 12:00am July 06, 2021 11:10am Start: 03-11-2020 oxyCODONE (VIKY ICODONE) immediate release tablet 5 mg Comment on above: Caution federal law prohibits the transfer of this drug to any person other than the person for whom it was prescribed.It is very important that you take or use this exactly as directed. Do not skip doses or discontinue unless directed by your doctor.May cause drowsiness or dizziness.This prescription cannot be refilled.Using more of this medication than prescribed may cause serious breathing problems. pantoprazole 40 mg delayed release oral tablet (1 source) Proton Pump Inhibitor Start: 09-25-19 take 1 tablet by mouth twice daily pantoprazole 40 mg oral delayed release tablet ; 1 tab(s) orally 2 times a day Quantity: 28 Refills: 0 Ordered: 25-Sep-2018 Larry Toscano Start: 25-Sep-2018 Status: Discontinued Generic Substitution Allowed polyvinyl alcohol 0.014 ml/ml / povidone 6 mg/ml ophthalmic solution (11 sources) polyvinyl alcohol-povidon,PF, (HYPOTears) 1.4-0.6 % ophthalmic solution 1-2 drops if needed for wound care. Active pregabalin 100 mg oral capsule (20 sources) Start: 11-25-19 pregabalin (Lyrica) 100 MG capsule 11/25/2023 Active Start: 11-06-2021 End: 12-18-2021 Pregabalin 75 mg capsule Dis continued 75 mg PO November 06, 2021 1:00am December 18, 2021 9:00am probenecid 500 mg oral tablet (20 sources) Start: 06-08-2024 End: 02-24-2026 take 1 tablet by mouth once daily probenecid (Benemid) 500 mg tablet Indications: Gout, unspecified cause, unspecified chronicity, unspecified site Take 1 tablet (500 mg) by mouth once daily. 90 tablet 3 02/24/2025 02/24/2026 Active Start: 06-08-2024 take 1 tablet by missael th every twelve hours Probenecid 500 mg tablet Active 250 mg PO Q12H November 26, 2024 1:00am Start: 10-17-2023 End: 05-11-2024 take 1 tablet by mouth twice daily probenecid (Benemid) 500 mg tablet Indications: Hospital discharge follow-up , Chronic gout of right foot, unspecified cause TAKE ONE TABLET BY MOUTH TWICE A DAY 60 tablet 10/17/2023 05/11/2024 Discontinued (Med List Cleanup) Start: 09-18-2023 take 1 tablet by missael th twice daily probenecid (Benemid) 500 mg tablet Indications: Hospital discharge follow-up , Chronic gout of right foot, unspecified cause Take orally by mouth twice a day 60 tablet 0 09/18/2023 Active Start: 09-17-2023 End: 09-18-2023 probenecid (Benemid) 500 mg tablet Promethazine (3 sources) Phenothiazine Start: 03-11-2020 promethazine ( PHENERGAN) tablet 12.5 mg Start: 06-11-2019 End: 06-18-2019 take 1 tablet by mouth every six hours as needed for nausea promethazine (PHENERGAN) 12.5 MG tablet Take 1 tablet by mouth every 6 hours as needed for Nausea 60 tablet 0 06/11/2019 06/18/2019 Active Start: 06-11-2019 End: 06-11-2019 promethazine (PHENERGAN) tab let 25 mg rosuvastatin calcium 20 mg oral tablet (5 sources) HMG-CoA Reductase Inhibitor Start: 01-19-2025 End: 01-19-2026 take 1 tablet by mouth once daily rosuvastatin (Crestor) 20 mg tablet Indications: ST elevation myocardial infarction involving left anterior descending (LAD) coronary artery (Multi) , Ischemic cardiomyopathy , Arteriosclerosis of coronary artery , Hyperlipidemia, unspecified hyperlipidemia type Take 1 tablet (20 mg) by mouth once daily. 30 tablet 11 01/19/2025 01/19/2026 Active sennosides, fpc 8.6 mg oral tablet (1 source) Start: 03-11-2020 senna (SENOKOT) tablet 8.6 mg simethicone 80 mg chewable tablet (1 source) Start: 06-10-2019 simethicone (MYLICON) chewable tablet 80 mg SITagliptin 100 mg oral tablet (20 sources) Dipeptidyl Peptidase 4 Inhibitor Start: 11-11-2019 End: 04-02-2026 take 1 tablet by mouth once daily SITagliptin phosphate (Januvia) 100 mg tablet Indications: Type 2 diabetes mellitus with hyperglycemia, with long-term current use of insulin Take 1 tablet (100 mg) by mouth once daily. 90 tablet 3 04/05/2025 11:54 AM EDT 04/02/2025 04/02/2026 Active 1000 ml sodium chloride 9 mg/ml injection (4 sources) Start: 03-08-2021 0.9 % sodium chloride infusion Start: 03-11-2020 sodium chlorid e flush 0.9 % injection 10 mL Start: 06-09-2019 End: 06-09-2019 0.9 % sodium chloride infusi on sulfamethoxazole 800 mg / trimethoprim 160 mg oral tablet (2 sources) Dihydrofolate Reductase Inhibitor Antibacterial, Sulfonamide Antimicrobial Start: 07-20-2024 End: 07-23-2024 take 1 tablet by mouth twice daily sulfamethoxazole-trimethoprim (Bactrim DS) 800-160 MG tablet Indications: Cystitis Take 1 tablet by mouth 2 times daily for 3 days. 6 tablet 07/20/2024 07/23/2024 Active traMADol hydrochloride 50 mg oral tablet (3 sources) Opioid Agonist Start: 08-03-2022 End: 08-09-2022 take 1 tablet by mouth every six hours traMADol 50 mg oral tablet ; 1-2 tab(s) orally every 6 hours as needed for pain relief Quantity: 28 Refills: 0 Ordered: 03-Aug-2022 Daina Hardin Start: 03-Aug-2022 End: 09-Aug-2022 Generic Substitution Allowed Comments: Caution [place] law prohibits the transfer of this drug to any person other than the person for whom it was prescribed.May cause drowsiness. Alcohol may intensify this effect. Use care when operating dangerous machinery.Obtain medical advice before taking any non-prescription drugs as some may affect the action of this medication. Start: 07-25-2018 End: 07-29-2018 take 1 tablet by mouth three times daily as needed traMADol 50 mg oral tablet ; 1 tab(s) orally 3 times a day x 5 days, As Needed Quantity: 15 Refills: 0 Ordered: 25-Jul-2018 Mihir Dudley Start: 25-Jul-2018 End: 29-Jul-2018 Status: Other Generic Substitution Allowed Comments: Caution [place] law prohibits the transfer of this drug to any person other than the person for whom it was prescribed.May cause drowsiness. Alcohol may intensify this effect. Use care when operating dangerous machinery.Obtain medical advice before taking any non-prescription drugs as some may affect the action of this medication. Start: 01-20-2018 End: 01-26-2018 take 1 tablet by mouth every six hours traMADol 50 mg oral tablet ; 1 tab(s) orally every 6 hours as needed for pain. Do not take if not in pain. Quantity: 28 Refills: 0 Ordered: 20-Jan-2018 Matthew Arana Start: 20-Jan-2018 End: 26-Jan-2018 Status: Other Generic Substitution Allowed Comments: Caution federal law prohibits the transfer of this drug to any person other than the person for whom it was prescribed.May cause drowsiness. Alcohol may intensify this effect. Use care when operating dangerous machinery.Obtain medical advice before taking any non-prescription drugs as some may affect the action of this medication. Comment on above: Caution federal law prohibits the transfer of this drug to any person other than the person for whom it was prescribed.May cause drowsiness. Alcohol may intensify this effect. Use care when operating dangerous machinery.Obtain medical advice before taking any non-prescription drugs as some may affect the action of this medication. Vitamin B Complex (B Complex-Vitamin B12) tablet (20 sources) Start: 09-18-2021 take 1 tablet by mouth once daily Vitamin B Complex (B Complex-Vitamin B12) tablet Active 1 TABLET PO DAILY September 18, 2021 11:08am Start: 09-18-2021 Vitamin B Comp donna (B Complex-Vitamin B12) tablet Active 1 {tbl} PO DAILY September 18, 2021 1:00am supplement Start: 09-18-2021 Vitamin B Comp donna (B Complex-Vitamin B12) tablet Active 1 {tbl} PO DAILY September 18, 2021 1:00am Start: 09-18-2021 Vitamin B Comp donna (B Complex-Vitamin B12) tablet Active 1 {tbl} PO DAILY September 18, 2021 12:00am Start: 09-18-2021 take 1 tablet by missael th once daily Vitamin B Complex (B Complex-Vitamin B12) tablet Active 1 TABLET PO DAILY September 18, 2021 12:00am Start: 09-18-2021 take 1 tablet by missael th once daily Vitamin B Complex (B Complex-Vitamin B12) tablet Active 1 TABLET PO DAILY September 18, 2021 1:00am vitamin b12 1 mg oral tablet (20 sources) Vitamin B12 take 1 tablet by mouth once daily cyanocobalamin (Vitamin B-12) 1,000 mcg tablet Take 1 tablet (1,000 mcg) by mouth once daily. Active take 1 tablet by mouth once rickey y cyanocobalamin (Vitamin B-12) 250 mcg tablet Take 1 tablet (250 mcg) by mouth once daily. Active Completed/Discontinued Medications Medication Drug Class(es) Dates Sig (Normalized) Sig (Original) acetaminophen 325 mg oral tablet (20 sources) Start: 04-10-2024 End: 04-10-2024 take 975 mg by mouth once as needed for pain 975 mg, oral, Once, On Sat04/10/24 at 0645, For 1 dose, Preprocedure, If ordered PRN for pain, nurse is permitted to administer this medication for higher pain scores based on patient preference? Yes Start: 08-13-2022 End: 11-28-2022 take 2 tablets by mouth every six hours as needed Acetaminophen 500 mg tablet Active 1000 mg PO EVERY 6 HOURS as needed November 28, 2022 9:29am Start: 08-13-2022 End: 11-28-2022 take 1000 mg by mouth every six hours Acetaminophen Active 1000 MG PO EVERY 6 HOURS November 28, 2022 9:29am Start: 08-03-2022 End: 2022 take 2 tablets by mouth every six hours Acetaminophen 325 mg Tablet Discontinued 650 mg PO EVERY 6 HOURS August 03, 2022 1:00am August 13, 2022 6:14pm pain Start: 08-03-2022 End: 08-13-2022 take 650 mg by mouth every six hours Acetaminophen Discontinued 650 MG PO EVERY 6 HOURS August 03, 2022 1:00am August 13, 2022 6:14pm Start: 03-12-2020 take 2 tablets by mo uth every eight hours acetaminophen (TYLENOL) 500 MG tablet Take 2 tablets by mouth every 8 hours 120 tablet 0 03/12/2020 Active Start: 11-11-2019 End: 07-06-2021 take 2 tablets by mouth at bedtime Acetaminophen 500 MG tablet Discontinued 1000 mg PO AT BEDTIME November 11, 2019 1:00am July 06, 2021 11:10am Start: 11-11-2019 End: 07-06-2021 take 1000 mg by mouth at bedtime Acetaminophen Discontinued 1000 MG PO AT BEDTIME November 11, 2019 1:00am July 06, 2021 11:10am Start: 06-09-2019 take 650 mg by mouth every four hours as needed for pain, then take 4000 mg by mouth every twenty-four hours as needed for pain 650 mg, Oral, EVERY 4 HOURS PRN, Pain Mild (1-3), Fever, Fever >100.5 F (38 C), Starting Sat06/09/19 at 2058 Maximum dose of acetaminophen is 4000 mg from all sources in 24 hours. Post-op take 1 tablet by missael th every eight hours as needed acetaminophen (Tylenol 8 HOUR) 650 mg ER tablet Take 1 tablet (650 mg) by mouth every 8 hours if needed for mild pain (1 - 3). Do not crush, chew, or split. Active take 1 tablet by missael th every six hours as needed for pain acetaminophen (TYLENOL) 500 MG tablet Take 500 mg by mouth every 6 hours as needed for Pain 0 Active Comment on above: This product contain s acetaminophen. Do not use with any other product containing acetaminophen to prevent possible liver damage. acetaminophen 325 mg / oxyCODONE hydrochloride 5 mg oral tablet (1 source) Opioid Agonist Start: 018 End: 018 take 1 tablet by mouth every four hours oxyCODONE-acetaminop hen 5 mg-325 mg oral tablet ; 1 tab(s) orally every 4 hours every 4 hours as needed for pain. Do not take if not in pain. Quantity: 56 Refills: 0 Ordered: 20-Jan-2018 Matthew Arana Start: 20-Jan-2018 End: 26-Jan-2018 Status: Discontinued Generic Substitution Allowed Comments: Caution [place] law prohibits the transfer of this drug to any person other than the person for whom it was prescribed.May cause drowsiness. Alcohol may intensify this effect. Use care when operating dangerous machinery.This prescription cannot be refilled.This product contains acetaminophen. Do not use with any other product containing acetaminophen to prevent possible liver damage.Using more of this medication than prescribed may cause serious breathing problems. Comment on above: Caution [place] law prohibits the transfer of this drug to any person other than the person for whom it was prescribed.May cause drowsiness. Alcohol may intensify this effect. Use care when operating dangerous machinery.This prescription cannot be refilled.This product contains acetaminophen. Do not use with any other product containing acetaminophen to prevent possible liver damage.Using more of this medication than prescribed may cause serious breathing problems. ALPRAZolam 0.25 mg disintegrating oral tablet (1 source) Benzodiazepine Start: End: ALPRAZolam (NIRAVAM) dissolvable tablet 0.25 mg amoxicillin 500 mg oral capsule (20 sources) Penicillin-class Antibacterial Start: End: take 1 capsule by mouth twice daily Amoxicillin 500 mg capsule Discontinued 500 mg PO TWICE A DAY September 18, 2021 1:00am October 03, 2021 11:27am take 4 capsules by mouth once da jayjay amoxicillin 500 mg oral capsule ; 4 cap(s) orally once a day before dental work Quantity: 0 Refills: 0 Ordered: 01-Oct-2018 Rachel Steven Status: Discontinued Generic Substitution Allowed amoxicillin 500 mg oral tablet ; 4 tab(s) oral Quantity: 0 Refills: 0 Ordered: 21-May-2022 Mary Beth Aquino Generic Substitution Allowed amoxicillin 500 mg / clavulanate 125 mg oral tablet (20 sources) Penicillin-class Antibacterial Start: 12-03-2024 End: 12-17-2024 take 1 tablet by mouth twice daily amoxicillin-pot clavulanate (Augmentin) 500-125 mg tablet Indications: Acute cystitis without hematuria Take 1 tablet (500 mg) by mouth 2 times a day for 7 days. 14 tablet 12/03/2024 12/17/2024 Discontinued (Med List Cleanup) Start: 05-27-2024 End: 06-03-2024 take 1 tablet by mouth twice daily amoxicillin-pot clavulanate (Augmentin) 500-125 mg tablet Indications: Recurrent UTI Take 1 tablet (500 mg) by mouth 2 times a day for 7 days. 14 tablet 05/27/2024 06/03/2024 Active Start: 08-22-2023 End: 08-29-2023 take 1 tablet by mouth twice daily amoxicillin-pot clavulanate (Augmentin) 500-125 mg tablet Indications: Acute cystitis without hematuria Take 1 tablet (500 mg) by mouth 2 times a day for 7 days. 14 tablet 0 08/22/2023 08/29/2023 Start: 12-21-2022 End: 06-04-2023 Amoxicillin-Pot Clavulanate 875-125 mg tablet Discontinued 1 {tbl} PO TWICE A DAY 14 December 21, 2022 12:00am June 04, 2023 10:54am Start: 12-21-2022 take 1 tablet by missael th twice daily Amoxicillin-Pot Clavulanate Active 1 TABLET PO TWICE A DAY December 21, 2022 12:00am Start: 05-09-2022 End: 07-17-2022 Amoxicillin-Pot Clavulanate 875-125 mg tablet Discontinued 1 {tbl} PO May 09, 2022 12:00am July 17, 2022 8:12am Start: 05-09-2022 End: 07-17-2022 Amoxicillin-Pot Clavulanate Discontinued 1 TABLET PO May 09, 2022 12:00am July 17, 2022 8:12am take 1 tablet by missael twice daily amoxicillin-clavulanate (AUGMENTIN) 875-125 MG per tablet Take 1 tablet by mouth 2 times daily 0 Active apixaban 5 mg oral tablet (20 sources) Factor Xa Inhibitor Start: 03-18-2020 End: 07-06-2021 take 2 tablets by mouth twice daily, then take 1 tablet by mouth twice daily Apixaban 5 MG tablet Discontinued 5 mg PO TWICE A DAY March 18, 2020 12:00am July 06, 2021 11:10am 10mg BID x 7 days, then 5mg BID Start: 03-18-2020 End: 07-06-2021 take 10 mg by mouth twice daily, then take 5 mg by mouth twice daily Apixaban Discontinued 5 MG PO TWICE A DAY March 18, 2020 12:00am July 06, 2021 11:10am 10mg BID x 7 days, then 5mg BID azelastine hydrochloride 0.137 mg/actuat metered dose nasal spray (20 sources) Histamine-1 Receptor Antagonist Start: 07-06-2021 End: 02-08-2022 Azelastine 137 mcg (0.1 %) aerosol,spray Discontinued 1 NMA INTRANASAL TWICE A DAY July 06, 2021 12:00am February 08, 2022 1:22pm Start: 07-06-2021 End: 02-08-2022 Azelastine Discontinued 1 SP RAY INTRANASAL TWICE A DAY July 06, 2021 12:00am February 08, 2022 1:22pm B6/mfolate/mcobal/ALA/benfot ia (EB-N6 DR ORAL) (5 sources) End: 02-25-2024 B6/mfolate/mcobal/ALA/benfot ia (EB-N6 DR ORAL) Take by mouth. 02/25/2024 Discontinued (Therapy completed) B6/mfolate/mcoba l/ALA/benfotia (EB-N6 DR ORAL) Take by mouth. Active B6/mfolate/mcoba l/ALA/benfotia (EB-N6 DR ORAL) Take by mouth. 0 Active baclofen 10 mg oral tablet (20 sources) gamma-Aminobutyric Acid-ergic Agonist Start: 07-06-2021 End: 10-31-2021 take 1 tablet by mouth three times daily as needed for pain Baclofen 10 mg tablet Discontinued 10 mg PO THREE TIMES A DAY as needed for Muscle pain/spasm 90 2 July 06, 2021 12:00am October 31, 2021 3:53pm belladonna extract, RESIDENTIAL / Opium (1 source) Start: 06-11-2019 End: 06-11-2019 opium-belladonna (B&O SUPPRETTES) 16.2-60 MG suppository 60 mg benzalkonium chloride 0.001 mg/mg medicated bar soap (8 sources) Start: 05-21-2022 Dial Gold 0.1 % External Bar USE DIRECTED Quantity: 1 Refills: 0 Ordered: 21-May-2022 Stephen MARX-Stefanie SAMPSON Start : 21-May-2022 Active benzonatate 100 mg oral capsule (15 sources) Non-narcotic Antitussive Start: 04-30-2022 End: 07-17-2022 Benzonatate 100 mg capsule Discontinued 100 mg PO 2 to 3 times per day as needed for cough 90 0 April 30, 2022 12:00am July 17, 2022 8:12am buprenorphine 0.075 mg buccal film (20 sources) Partial Opioid Agonist Start: 09-18-2021 End: 10-31-2021 Buprenorphine Hcl (Belbuca) 75 mcg film Discontinued 75 ug BUCCAL Q12H September 18, 2021 1:00am October 31, 2021 3:53pm carboxymethylcellulose sodium 5 mg/ml ophthalmic solution (20 sources) Start: 11-11-2019 End: 02-08-2022 Carboxymethylcellulose Sodium (Refresh Plus) 0.5 % dropperette Discontinued 1 NMA OPHTHALMIC 4 to 6 times per day as needed July 06, 2021 12:00am February 08, 2022 1:25pm carboxymethylcel lulose (Refresh Tears) 0.5 % ophthalmic solution 1 drop if needed for dry eyes. Active take 1 drop(s) into the eye(s) twice daily as needed Refresh Plus ophthalmic solution ; 1 edmond p(s) to each affected eye 2 times a day, As Needed Quantity: 0 Refills: 0 Ordered: 01-Oct-2018 Rachel Steven Status: Discontinued Generic Substitution Allowed Carboxymethylcel lulose Sodium (REFRESH PLUS OP) Apply to eye daily as needed 0 Active ceFAZolin 2000 mg injection (1 source) Cephalosporin Antibacterial Start: 06-09-2019 End: 06-09-2019 ceFAZolin (ANCEF) 2 g in dextrose 4 % 100 mL IVPB (premix) cefdinir 300 mg oral capsule (19 sources) Cephalosporin Antibacterial Start: 04-11-2022 Cefdinir 300 MG Oral Capsule Quantity: 10 Refills: 0 Ordered: 11-Apr-2022 DO Start : 11-Apr-2022 Complete Start: 04-11-2022 End: 07-17-2022 take 1 capsule by mouth twice daily Cefdinir 300 mg capsule Discontinued 300 mg PO TWICE A DAY 10 0 April 11, 2022 12:00am July 17, 2022 8:12am Start: 03-12-2020 End: 03-14-2020 take 1 capsule by mouth twice daily cefdinir (OMNICEF) 300 MG capsule Take 1 capsule by mouth 2 times daily for 2 days 4 capsule 0 03/12/2020 03/14/2020 Active cephalexin 250 mg oral capsule (20 sources) Cephalosporin Antibacterial Start: 07-06-2021 End: 09-18-2021 take 1 capsule by mouth once daily Cephalexin 250 mg capsule Discontinued 250 mg PO DAILY July 06, 2021 12:00am September 18, 2021 11:09am Maintenance dosing End: 05-11-2024 take 1 capsule by mouth twice daily cephalexin (Keflex) 500 mg capsule Take 1 capsule (500 mg) by mouth 2 times a day. 05/11/2024 Discontinued (Med List Cleanup) take 1 tablet by missael four times daily cephalexin 500 mg oral tablet ; 1 tab(s) orally 4 times a day Quantity: 0 Refills: 0 Ordered: 01-Oct-2018 Rachel Steven Status: Other Generic Substitution Allowed cetirizine hydrochloride 10 mg oral tablet (15 sources) Histamine-1 Receptor Antagonist Start: 04-30-2022 End: 07-17-2022 take 1 tablet by mouth once daily as needed Cetirizine (24hour Allergy) 10 mg tablet Discontinued 10 mg PO DAILY as needed April 30, 2022 12:00am July 17, 2022 8:12am diatrizoate kevin-diatrizoat sod (Gastrografin 37% organic bound iodine) solution 30 mL (1 source) Start: 11-19-2024 End: 11-19-2024 take 1 dose by mouth once 30 mL, oral, Once, On Carmen 11/19/24 at 1230, For 1 dose, 30 ml diluted in 900 ml of water with 1 packet of crystal lite flavoring 3.11g (.11oz), What is the indication of use? Diagnostic Use Disability Placard (16 sources) Start: 10-02-2017 Disability [place] card Handicapped Placard for Lifetime disability ; Expires 5 years Quantity: 1 Refills: 0 Ordered: 02-Oct-2017 Claire Guthrie MD Start : 02-Oct-2017 Active Start: 10-02-2017 Disability [place]assy card Handicapped Placard for Lifetime disability ; Expires 5 years Quantity: 1 Refills: 0 Claire Guthrie MD Start : 02-Oct-2017 Active docusate sodium 100 mg oral capsule (20 sources) Start: 08-03-2022 End: 09-01-2022 take 1 capsule by mouth once daily Docusate Sodium (Colace) 100 mg Capsule Discontinued 100 mg PO DAILY August 03, 2022 1:00am August 13, 2022 6:18pm bowels Start: 03-11-2020 take 1 capsule by mo [facility] twice daily docusate sodium (COLACE, DULCOLAX) 100 MG CAPS Take 100 mg by mouth 2 times daily 60 capsule 0 03/12/2020 Active Start: 06-11-2019 End: 07-11-2019 take 1 capsule by mouth twice daily docusate sodium (COLACE) 100 MG capsule Take 1 capsule by mouth 2 times daily 60 capsule 0 06/11/2019 07/11/2019 Active Start: 01-20-2018 End: 02-18-2018 take 1 capsule by mouth twice daily Colace 100 mg oral capsule ; 1 cap(s) orally 2 times a day Quantity: 60 Refills: 0 Ordered: 20-Jan-2018 Matthew Arana Start: 20-Jan-2018 End: 18-Feb-2018 Status: Other Generic Substitution Allowed Comments: Medication should be taken with plenty of water. Comment on above: Medication should be taken with plenty of water. doxycycline monohydrate 100 mg oral capsule (12 sources) Tetracycline-class Drug Start: 01-11-2023 Doxycycline Monohydrate 100 MG Oral Capsule Quantity: 20 Refills: 0 Ordered: 11-Jan-2023 DO Start : 11-Jan-2023 Complete Start: 01-11-2023 End: 02-22-2023 take 1 capsule by mouth twice daily Doxycycline Monohydrate 100 mg capsule Discontinued 100 mg PO TWICE A DAY January 11, 2023 12:00am February 22, 2023 8:24am Start: 09-12-2018 take 1 capsule by mo ut twice daily doxycycline hyclate 100 mg oral capsule ; 1 cap(s) orally 2 times a day Quantity: 0 Refills: 0 Ordered: 17-Sep-2018 Saranya Jones Start: 12-Sep-2018 Status: Discontinued Generic Substitution Allowed DULoxetine 30 mg delayed release oral capsule (20 sources) Serotonin and Norepinephrine Reuptake Inhibitor Start: 07-06-2021 End: 07-06-2021 take 1 capsule by mouth once daily Duloxetine 30 mg capsule,delayed release(DR/EC) Discontinued 30 mg PO DAILY July 06, 2021 12:00am July 06, 2021 7:59pm Start: 07-06-2021 End: 07-18-2021 take 1 capsule by mouth once daily Duloxetine 60 mg capsule,delayed release(DR/EC) Discontinued 60 mg PO DAILY 30 2 July 06, 2021 12:00am July 18, 2021 8:24am take 1 capsule by mo uth once daily DULoxetine (CYMBALTA) 30 MG extended release capsule Take 30 mg by mouth daily 0 Active empagliflozin 10 mg oral tablet (20 sources) Sodium-Glucose Cotransporter 2 Inhibitor Start: 11-11-2019 End: 07-06-2021 take 1 tablet by mouth once daily Empagliflozin 10 MG tablet Discontinued 10 mg PO DAILY November 11, 2019 1:00am July 06, 2021 11:05am famotidine 20 mg oral tablet (20 sources) Histamine-2 Receptor Antagonist Start: 11-11-2019 End: 07-06-2021 take 1 tablet by mouth once daily Famotidine 20 MG tablet Discontinued 20 mg PO DAILY November 11, 2019 1:00am July 06, 2021 11:05am Start: 06-09-2019 End: 06-08-2021 take 20 mg by mouth twice daily 20 mg, Oral, 2 TIMES D AILY, First dose on Sat03/11/20 at 0930 fluticasone propionate 0.05 mg/actuat metered dose nasal spray (20 sources) Corticosteroid Start: 07-06-2021 End: 02-08-2022 Fluticasone Propionate 50 mcg/actuation spray,suspension Discontinued 2 NMA INTRANASAL DAILY July 06, 2021 12:00am February 08, 2022 1:25pm Start: 07-06-2021 End: 02-08-2022 Fluticasone Propionate Disco ntinued 2 SPRAY INTRANASAL DAILY July 06, 2021 12:00am February 08, 2022 1:25pm FreeStyle glucose monitoring kit (2 sources) End: 10-21-2023 FreeStyle glucose monitoring kit 1 each if needed. 0 10/21/2023 Discontinued (Duplicate order) End: 10-21-2023 FreeStyle glucose monitoring kit 1 each if needed. 0 10/21/2023 Discontinued (Ineffective) gadobutrol (GADAVIST) injection 10 mL (1 source) Start: 08-22-2020 End: 08-22-2020 gadobutrol (GADAVIST) injection 10 mL guaiFENesin 400 mg oral tablet (15 sources) Start: 04-30-2022 End: 07-17-2022 take 1 tablet by mouth every four hours Guaifenesin (Mucus Relief) 400 mg tablet Discontinued 400 mg PO Q4H April 30, 2022 12:00am July 17, 2022 8:14am 1 ml HYDROmorphone hydrochloride 1 mg/ml cartridge (1 source) Opioid Agonist Start: 06-09-2019 End: 06-09-2019 HYDROmorphone (DILAUDID) injection 0.25 mg iohexol (OMNIPaque) 350 mg iodine/mL solution 70 mL (1 source) Start: 11-19-2024 End: 11-19-2024 70 mL, intravenous, Once in imaging, Starting on [facility] 11/19/24 at 1211, For 1 dose iopamidol (ISOVUE-370) 76 % injection 75 mL (1 source) Start: 08-22-2020 End: 08-22-2020 iopamidol (ISOVUE-370) 76 % injection 75 mL Lantus SoloStar SOLN (12 sources) Lantus SoloStar SOLN Quantity: 0 Refills: 0 Ordered: 19-Mar-2023 DO Active Lantus SoloStar SOLN Quantity: 0 Refills: 0 Ordered: 04-Feb-2019 DO Active magnesium sulfate 0.0277 meq/ml / potassium sulfate 0.0374 meq/ml / sodium sulfate 0.257 meq/ml oral solution (2 sources) Start: 10-21-2024 End: 10-28-2024 sodium,potassium,mag sulfate s (Suprep) 17.5-3.13-1.6 gram solution Indications: Adenomatous polyp of colon, unspecified part of colon Take 1 bottle by mouth 2 times a day. 2 each 10/21/2024 10/28/2024 Discontinued (Therapy completed) Start: 10-20-2024 sodium,potassi um,mag sulfates (Suprep) 17.5-3.13-1.6 gram solution Indications: Adenomatous polyp of colon, unspecified part of colon Take 1 bottle by mouth 2 times a day. 2 each 10/20/2024 Active methylPREDNISolone acetate 80 mg/ml injectable suspension (1 source) Corticosteroid Start: 08-21-2021 End: 08-21-2021 inject 80 mg by intramuscular injection once methylprednisolone acetate 80 mg/mL suspension for injection Discontinued 80 MG IM ONCE 0.5 August 21, 2021 9:58am August 21, 2021 10:32am metoprolol tartrate 25 mg oral tablet (20 sources) beta-Adrenergic Carlos Start: 06-16-2024 End: 06-16-2025 take 1 tablet by mouth every twelve hours Metoprolol Tartrate 25 mg tablet Discontinued 25 mg PO Q12H November 26, 2024 1:00am November 28, 2024 12:32pm Start: 06-16-2024 End: 09-02-2025 take 1 tablet by mouth twice daily metoprolol tartrate (Lopressor) 25 mg tablet Indications: Tachycardia Take 1 tablet (25 mg) by mouth 2 times a day. 180 tablet 3 09/02/2024 12/01/2024 Discontinued (Med List Cleanup) Start: 03-19-2023 Metoprolol Tar trate 50 MG Oral Tablet 1 pill one hour before ca tscan Quantity: 1 Refills: 0 Ordered: 03-Apr-2023 Jodi Awan MD Start : 19-Mar-2023 Active miconazole nitrate 0.02 mg/mg topical powder (15 sources) Azole Antifungal Start: 04-30-2022 End: 07-17-2022 Miconazole Nitrate (Desenex) 2 % powder Discontinued 1 NMA TOPICAL TWICE A DAY 85 4 April 30, 2022 12:00am July 17, 2022 8:14am Multivitamins TABS (4 sources) Multivitamins TA BS TAKE 1 TABLET DAILY. Refills: 0 DO Active Multivitamins TA BS TAKE 1 TABLET DAILY. Refills: 0 Active Multivitamins TABS (12 sources) Multivitamins TA BS TAKE 1 TABLET DAILY. Quantity: 0 Refills: 0 Ordered: 31-Jul-2018 DO Active nystatin 100 unt/mg topical powder (20 sources) Polyene Antifungal Start: 04-30-2022 End: 04-30-2022 Nystatin 100,000 unit/gram powder Discontinued 1 NMA TOPICAL TWICE A DAY April 30, 2022 12:00am April 30, 2022 10:50am Start: 04-30-2022 End: 04-30-2022 Nystatin Discontinued 1 APPL IC TOPICAL TWICE A DAY April 30, 2022 12:00am April 30, 2022 10:50am Start: 10-03-2021 End: 02-08-2022 Nystatin 100,000 unit/gram p owder Discontinued 1 NMA TOPICAL TWICE A DAY 60 2 October 03, 2021 1:00am February 08, 2022 1:25pm Start: 10-03-2021 End: 02-08-2022 Nystatin Discontinued 1 APPL IC TOPICAL TWICE A DAY 60 October 03, 2021 1:00am February 08, 2022 1:25pm 2 ml ondansetron 2 mg/ml injection (15 sources) Serotonin-3 Receptor Antagonist Start: 10-28-2024 End: 10-28-2024 intravenous, As needed, Starting on Sat10/28/24 at 1255, Intraprocedure Start: 05-01-2024 End: 05-11-2024 ondansetron (Zofran) 4 MG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 60-Day Assessment Weight Mgt (Other Care) Height: 5 ft 6 in Weight:: 252 lb BMI: 40.6 Core - 30-Day Assessment Hypertension [employer] Hypertension Guidelines Reassessment Notes & Comments:: 02/08 furosemide 40 mg QD started and losartan increased to 50 mg QD. Pt's BP's are within AHA normal limits on most days. Core - Final Assessment Hypertension [employer] Hypertension Guidelines Reassessment Notes & Comments (more content not included)... [facility] 29on 02-17-2025 29 Addended by: JES CRUZ on: 02/17/2025 03:45 PM Modules accepted: Orders [facility] Office Visiton 02-17-2025 Follow-up visit [id number] Tristen Gomez 1950 F Date Provider Department Center 02/17/2025 [id number], [facility] None Family History Problem Relation Age of Onset Heart attack Mother Hypertension Mother Diabetes Mother Stroke Mother Lung cancer Father Diabetes type II Mother Colon cancer Neg Hx Family Status - Relation Status Age at Mother Father Neg Hx Level of Service:14427 [place] OFFICE/OUTPATIENT ESTABLISHED LOW MDM 20 MIN Reason for Visit and Comments: UTI [[id number]] Normal [facility] Progress Noteon 02-17-2025 Progress Note HPI Chief Complaint Patient presents with ? UTI 74 y.o. female Patient with a long history of recurrent urinary tract infections She was last seen approximately 7 months ago She has been on Hiprex and had only 2 mild infections for the last 7 months The patient is few years after ROBOTIC ASSISTED ABDOMINAL SACROCOLPOPEXY. BILATERAL SALPINGO-OOPHORECTOMY POSTERIOR REPAIR. SYNTHETIC MID URETHRAL SLING. CYSTOSCOPY. Patient is doing well She has no symptoms at this time Couple of months ago the patient had a heart attack and a stent was placed Frequency: No, urinates every 3 hours during the day Nocturia: Yes, 1 x per night Enuresis: No Pad use: none Feels like she empties her bladder well. Denies ball/bulge in thevagina. No macroscopic hematuria. Sexual Activity: No; Dyspareunia: N/A Constipation: No Other bowel problems: None. Past Surgical History: Procedure Laterality Date ? ANKLE SURGERY Left ? ANKLE SURGERY ? BICEPS TENDON REPAIR ? BLADDER SURGERY ? BLADDER SURGERY 06/09/2019 ROBOTIC ASSISTED ABDOMINAL SACROCOLPOPEXY BILATERAL SALPINGO-OOPHORECTOMY, POSTERIOR REPAIR,SYNTHETIC MID URETHRAL SLING,CYSTOSCOPY ? CAROTID STENT 11/26/2024 ? CHOLECYSTECTOMY 1986 ? CHOLECYSTECTOMY ? COLONOSCOPY ? COLONOSCOPY 2017 POLYPS ? COLONOSCOPY 06/08/2021 ? COLONOSCOPY 10/2024 ? SHOULDER SURGERY ? TOTAL KNEE ARTHROPLASTY Right 01/20/2018 ? TOTAL VAGINAL HYSTERECTOMY 1986 ? TUMOR REMOVAL behind right ear ? WRIST SURGERY ? WRIST SURGERY Left 09/24/2018 Past Medical History: Diagnosis Date ? Arthritis ? Diabetes (HCC) ? Diabetes mellitus (HCC) ? GERD (gastroesophageal reflux disease) ? Heart attack (HCC) 11/26/2024 ? Hepatic hemangioma mri 03/04/2015: Bilobed hepatic hemangioma 7.9 cm ? Hepatic hemangioma ? History of blood transfusion ? History of colon polyps Current Outpatient Medications Medication Sig Dispense Refill ? chlorhexidine (Peridex) 0.12 % solution ? cholecalciferol (Vitamin D-3) 25 MCG (1000 UT) capsule Take 25 mcg by mouth in the morning. ? Cranberry-Vitamin C (Cranberry Concentrate/VitaminC) 07835-163 MG capsule Take by mouth. ? cyanocobalamin (Vitamin B-12) 1000 MCG tablet Take 1,000 mcg by mouth in the morning. ? enoxaparin (Lovenox) 40 MG/0.4ML solution prefilled syringe ? ferrous sulfate 325 (65 Fe) MG EC tablet Take 1 tablet twice daily. Do not crush, chew, or split. ? FLUoxetine HCl, PMDD, 20 MG tablet Take 20 mg by mouth in the morning. ? glucose blood (MorphoSys Ultra Test) test strip Inject 1 each into the skin. ? Ivabradine HCl 7.5 MG tablet Take by mouth. ? Lantus SoloStar 100 UNIT/ML pen ? losartan (Cozaar) 50 MG tablet Take 50 mg by mouth in the morning. ? ondansetron (Zofran) 4 MG tablet ? pregabalin (Lyrica) 100 MG capsule ? probenecid (Benemid) 500 MG tablet ? SITagliptin (Januvia) 100 MG tablet Take by mouth. ? carboxymethylcellulose (Refresh Plus) 0.5 % ophthalmic solution 1 drop. (Patient not taking: Reported on 02/17/2025) ? estradiol (Estrace) 0.1 MG/GM vaginal cream Apply 1 g nightly 2 times per week. 42.5 g 0 ? gabapentin (Neurontin) 300 MG capsule Take 600 mg by mouth in the morning. (Patient not taking: Reported on 02/17/2025) ? insulin degludec (Tresiba) 100 UNIT/ML injection Inject 35 Units under the skin. (Patient not taking: Reported on 02/17/2025) ? metoprolol tartrate (Lopressor) 25 MG tablet Take 25 mg by mouth in the morning and 25 mg in the evening. No current facility-administered medications for this visit. OB History 2 Para Term AB Living 2 SAB IAB Ectopic Multiple Live Births Allergies Allergen Reactions ? Baclofen Other Reaction(s): nightmares ? Aspirin GI bleeding, Nausea And Vomiting, Unknown and Other ? Ciprofloxacin Nausea And Vomiting and Rash ? Cyclobenzaprine Nausea And Vomiting, Other and Unknown Mood changes - irritable ? Empagliflozin Other Other reaction(s): Unknown Irritability ? Erythromycin Nausea Only, Cough, Other and Unknown severe stomach pain ? Hydrocodone Hallucinations Other Reaction(s): Nausea, Other, Other: See Comments She attributes her eye sensitivity to this medicine; photophobia and being unable to watch television ? Tramadol Other Reaction(s): Nausea, Nausea/vomiting, Other, Unknown nausea and mood change ? Carbidopa-Levodopa Unknown ? Cat Dander Other Reaction(s): Other ? Cats Claw (Uncaria Tomentosa) ? Erythromycin Base Other Reaction(s): Nausea, Other ? Hydrocodone-Acetaminop hen Other ? Ibuprofen ? Lactose Other Reaction(s): unknown ? Levodopa Other Reaction(s): Nausea, Other ? Oxycodone Other Reaction(s): Nausea, Other ? Sulfamethoxazole-Trime thoprim Other Reaction(s): Intolerance, Other ? Acetaminophen Nausea And Vomiting and Unknown ? Buprenorphine Rash ? Capsaicin Nausea And Vomiting and Rash ? Carbidopa Nausea And Vomitin (more content not included)... Normal [facility] ALBUMIN, RANDOM URINE W/CREA [facility] 01-29-2025 ALBUMIN, URINE 0.2 mg/dL Normal See Note: [facility] Comment on above: Result Comment: Mckinleyjoby alvarez Range: Reference Range Not established Performed By: #### 3 6127, 89434, 6517, 7600, 70136 #### [facility] [address], [address] [place] [id number] Switchboard Clerk: Corey Koch MD ALBUMIN/CREATININE RATIO, RANDOM URINE 2 mg/g creat Normal <30 [facility] Comment on above: Result Comment: The ADA defines abnormalities in albumin excretion as follows: Albuminuria Category Result (mg/g creatinine) Normal to Mildly increased <30 Moderately increased 30-299 Severely increased > OR = 300 The ADA recommends that at least two of three specimens collected within a 3-6 month period be abnormal before considering a patient to be within a diagnostic category. Performed By: #### 3 6127, 03327, 6517, 7600, 36900 #### [facility] [address], [address] [place] [address] Switchboard Clerk: Corey Koch MD Creatinine (U) [Mass/Vol] 97 mg/dL Normal 20-275 [facility] Comment on above: Performed By: #### 3 6127, 14802, 6517, 7600, 99233 #### [facility] of [address], [address] [place] [address] Switchboard Clerk: Corey Koch MD COMPREHENSIVE METABOLIC PANE [facility] 01-29-2025 Albumin [Mass/Vol] 3.7 g/dL Normal 3.6-5.1 [facility] Comment on above: Performed By: #### 3 6127, 23438, 6517, 7600, 61663 #### [facility] of [address], [address] [place] [address] Switchboard Clerk: Corey Koch MD Albumin/Globulin [Mass ratio] 1.3 {ratio} Normal 1.0-2.5 [facility] Comment on above: Performed By: #### 3 6127, 43697, 6517, 7600, 64677 #### [facility] of [address], [address] [place] [address] Switchboard Clerk: Corey Koch MD ALP [Catalytic activity/Vol] 102 U/L Normal 37-153 [facility] Comment on above: Performed By: #### 3 6127, 55768, 6517, 7600, 95083 #### [facility] of [address], [address] [place] [address] Switchboard Clerk: Corey Koch MD ALT [Catalytic activity/Vol] 24 U/L Normal 6-29 [facility] Comment on above: Performed By: #### 3 6127, 73175, 6517, 7600, 03448 #### [facility] of [place] [address] Switchboard Clerk: Corey Koch MD AST [Catalytic activity/Vol] 25 U/L Normal 10-35 [facility] Comment on above: Performed By: #### 3 6127, 19596, 6517, 7600, 65534 #### [facility] of [place] [address] Switchboard Clerk: Corey Koch MD Bilirubin [Mass/Vol] 0.3 mg/dL Normal 0.2-1.2 [facility] Comment on above: Performed By: #### 3 6127, 12648, 6517, 7600, 31660 #### [facility] of [place] [address] Switchboard Clerk: Corey Koch MD BUN/CREATININE RATIO SEE NOTE: Normal 6-22 [facility] Comment on above: Result Comment: Not Reported: BUN and Creatinine are within reference range. Performed By: #### 3 6127, 08415, 6517, 7600, 90831 #### [facility] [place] [address] Switchboard Clerk: Corey Koch MD Calcium [Mass/Vol] 9.3 mg/dL Normal 8.6-10.4 [facility] Comment on above: Performed By: #### 3 61, 70062, 6517, 7600, 08871 #### [facility] [place] [address] Switchboard Clerk: Corey Koch MD Chloride [Moles/Vol] 108 mmol/L Normal 98-110 [facility] Comment on above: Performed By: #### 3 6127, 13144, 6517, 7600, 68899 #### [facility] of [place] [address] Switchboard Clerk: Corey Koch MD CO2 [Moles/Vol] 22 mmol/L Normal 20-32 [facility] Comment on above: Performed By: #### 3 6127, 37956, 6517, 7600, 29272 #### [facility] of [place] [address] Switchboard Clerk: Corey Koch MD Creatinine [Mass/Vol] 0.86 mg/dL Normal 0.60-1.[address] [facility] Comment on above: Performed By: #### 3 61, 11987, 6517, 7600, 22283 #### [facility] [place] [address] Switchboard Clerk: Corey Koch MD GFR/1.73 sq M.predicted among non-blacks MDRD (S/P/Bld) [Vol rate/Area] 71 mL/min/{1.73_m2} Normal > OR = 60 [facility] Comment on above: Performed By: #### 3 61, 05822, 6517, 7600, 14765 #### [facility] [address], [address] [place] [address] Switchboard Clerk: Corey Koch MD Globulin (S) [Mass/Vol] 2.8 g/dL Normal 1.9-3.7 [facility] Comment on above: Performed By: #### 3 61, 25933, 6517, 7600, 13538 #### [facility] [place] [address] Switchboard Clerk: Corye Koch MD Glucose [Mass/Vol] 179 mg/dL High 65-99 [facility] Comment on above: Result Comment: Fasting reference interval For someone without known diabetes, a glucose value >125 mg/dL indicates that they may have diabetes and this should be confirmed with a follow-up test. Performed By: #### 3 6127, 19667, 6517, 7600, 98853 #### [facility] [place] [address] Switchboard Clerk: Corey Koch MD Potassium [Moles/Vol] 4.5 mmol/L Normal 3.5-5.[address] [facility] Comment on above: Performed By: #### 3 61, 30714, 6517, 7600, 21450 #### [facility] [place] [address] Switchboard Clerk: Corey Koch MD Protein [Mass/Vol] 6.5 g/dL Normal 6.1-8.1 [facility] Comment on above: Performed By: #### 3 6127, 64851, 6517, 7600, 97426 #### [facility] of [address], [address] [place] [address] Switchboard Clerk: Corey Koch MD Sodium [Moles/Vol] 143 mmol/L Normal 135-146 [facility] Comment on above: Performed By: #### 3 6127, 65624, 6517, 7600, 09417 #### [facility] [address], [address] [place] [address] Switchboard Clerk: Corey Koch MD Urea nitrogen [Mass/Vol] 13 mg/dL Normal 7-25 [facility] Comment on above: Performed By: #### 3 6127, 33404, 6517, 7600, 66718 #### [facility] [address], [address] [place] [address] Switchboard Clerk: Corey Koch MD HEMOGLOBIN A1c WITH eAGon eAG (mmol/L) 9.2 mmol/L Normal [facility] Comment on above: Performed By: #### 3 6127, 34281, 6517, 7600, 70652 #### [facility] [address], [address] [place] [address] Switchboard Clerk: Corey Koch MD HbA1c (Bld) [Mass fraction] 7.4 % High <5.7 [facility] Comment on above: Result Comment: For someone without known diabetes, a hemoglobin A1c value of 6.5% or greater indicates that they may have diabetes and this should be confirmed with a follow-up test. For someone with known diabetes, a value <7% indicates that their diabetes is well controlled and a value greater than or equal to 7% indicates suboptimal control. A1c targets should be individualized based on duration of diabetes, age, comorbid conditions, and other considerations. Currently, no consensus exists regarding use of hemoglobin A1c for diagnosis of diabetes for children. Performed By: #### 3 6127, 36979, 6517, 7600, 59207 #### [facility] [address], [address] [place] [address] Switchboard Clerk: Corey Koch MD Magnesium [Mass/Vol] 166 mg/dL Normal [facility] Comment on above: Performed By: #### 3 6127, 25498, 6517, 7600, 28976 #### [facility] [address], [address] [place] [address] Switchboard Clerk: Corey Koch MD LIPID PANEL, [facility] 05-0 Cholesterol [Mass/Vol] 101 mg/dL Normal <200 [facility] Comment on above: Order Comment: FASTI NG:YES FASTING: YES Performed By: #### 3 6127, 74779, 6517, 7600, 23756 #### [facility] [address], [address] [place] [address] Switchboard Clerk: Corey Koch MD Cholesterol in HDL [Mass/Vol] 45 mg/dL Low > OR = 50 [facility] Comment on above: Order Comment: FASTI NG:YES FASTING: YES Performed By: #### 3 6127, 72070, 6517, 7600, 64139 #### [facility] [address], [address] [place] [address] Switchboard Clerk: Corey Koch MD Cholesterol in LDL [Mass/Vol] 36 mg/dL Normal [facility] Comment on above: Order Comment: FASTI NG:YES FASTING: YES Result Comment: Refe rence range: <100 Desirable range <100 mg/dL for primary prevention; <70 mg/dL for patients with CHD or diabetic patients with > or = 2 CHD risk factors. LDL-C is now calculated using the Beatriz calculation, which is a validated novel method providing better accuracy than the Friedewald equation in the estimation of LDL-C. Geoff MCARTHUR et al. MAGUI. 2013;310(19): 4885-9776 (http://education.Create.Plickers/faq/GMN631) Performed By: #### 3 6127, 04274, 6517, 7600, 69763 #### [facility] [address], [address] [place] [address] Switchboard Clerk: Corey Koch MD Cholesterol.total/Chol esterol in HDL [Mass ratio] 2.2 {ratio} Normal <5.0 [facility] Comment on above: Order Comment: FASTI NG:YES FASTING: YES Performed By: #### 3 6127, 04030, 6517, 7600, 69602 #### [facility] [place] [address] Switchboard Clerk: Corey Koch MD NON HDL CHOLESTEROL 56 mg/dL (calc) Normal <130 [facility] Comment on above: Order Comment: FASTI NG:YES FASTING: YES Result Comment: For patients with diabetes plus 1 major ASCVD risk factor, treating to a non-HDL-C goal of <100 mg/dL (LDL-C of <70 mg/dL) is considered a therapeutic option. Performed By: #### 3 6127, 72543, 6517, 7600, 19773 #### [facility] [place] [address] Switchboard Clerk: Corey Koch MD Triglyceride [Mass/Vol] 115 mg/dL Normal <150 [facility] Comment on above: Order Comment: FASTI NG:YES FASTING: YES Performed By: #### 3 6127, 42538, 6517, 7600, 56951 #### [facility] [place] [address] Switchboard Clerk: Corey Koch MD TSH W/REFLEX TO FT4on 2024 TSH W/REFLEX TO FT4 2.63 mIU/L Normal 0.40-4.50 [facility] Comment on above: Performed By: #### 3 6127, 48390, 6517, 7600, 14456 #### [facility] [place] [address] Switchboard Clerk: Corey Koch MD CBC (H/H, RBC, INDICES, WBC, PLT)on 01-15-2025 Erythrocyte distribution width (RBC) [Ratio] 12.0 % Normal 11.0-15.0 [facility] Comment on above: Performed By: #### 7 573, 1759, 457 #### [facility] [place] [address] Switchboard Clerk: Corey Koch MD Hematocrit (Bld) [Volume fraction] 42.4 % Normal 35.0-45.0 [facility] Comment on above: Performed By: #### 7 573, 175, 457 #### [facility] [place] [address] Switchboard Clerk: Corey Koch MD Hemoglobin (Bld) [Mass/Vol] 13.9 g/dL Normal 11.7-15.5 [facility] Comment on above: Performed By: #### 7 573, 175, 457 #### [facility] [address], [address] [place] [address] Switchboard Clerk: Corey Koch MD MCH (RBC) [Entitic mass] 30.8 pg Normal 27.0-33.0 [facility] Comment on above: Performed By: #### 7 57, 175, 457 #### [facility] [place] [address] Switchboard Clerk: Corey Koch MD MCHC (RBC) [Mass/Vol] 32.8 g/dL Normal 32.0-36.0 [facility] Comment on above: Result Comment: For adults, a slight decrease in the calculated MCHC value (in the range of 30 to 32 g/dL) is most likely not clinically significant; however, it should be interpreted with caution in correlation with other red cell parameters and the patient's clinical condition. Performed By: #### 7 573, 175, 457 #### [facility] [place] [address] Switchboard Clerk: Corey Koch MD MCV (RBC) [Entitic vol] 94.0 fL Normal 80.0-100.0 [facility] Comment on above: Performed By: #### 7 573, 175, 457 #### [facility] [place] [address] Switchboard Clerk: Corey Koch MD Platelet mean volume (Bld) [Entitic vol] 9.7 fL Normal 7.5-12.5 [facility] Comment on above: Performed By: #### 7 573, 1759, 457 #### [facility] of [address], [address] [place] [address] Switchboard Clerk: Corey Koch MD Platelets (Bld) [#/Vol] 286 10*3/uL Normal 140-400 [facility] Comment on above: Performed By: #### 7 573, 175, 457 #### [facility] of [address], [address] [place] [address] Switchboard Clerk: Corey Koch MD RBC (Bld) [#/Vol] 4.51 10*6/uL Normal 3.80-5.10 [facility] Comment on above: Performed By: #### 7 573, 175, 457 #### [facility] of [address], [address] [place] [address] Switchboard Clerk: Corey Koch MD WBC (Bld) [#/Vol] 7.6 10*3/uL Normal 3.8-10.8 [facility] Comment on above: Performed By: #### 7 573, 175, 457 #### [facility] [place] [address] Switchboard Clerk: Corey Koch MD FERRITINon 01-15-2025 Ferritin [Mass/Vol] 180 ng/mL Normal 16-288 [facility] Comment on above: Performed By: #### 3 6127, 62190, 6517, 7600, 33095 #### [facility] [place] [address] Switchboard Clerk: Corey Koch MD IRON AND TOTAL IRON BINDING CAPACITYon 01-15-2025 % SATURATION 42 % (calc) Normal 16-45 [facility] Comment on above: Performed By: #### 7 573, 175, 457 #### [facility] of [address], [address] [place] [address] Switchboard Clerk: Corey Koch MD IRON BINDING CAPACITY 301 mcg/dL (calc) Normal 250-450 [facility] Comment on above: Performed By: #### 7 573, 1759, 457 #### [facility] [address], [address] [place] [address] Switchboard Clerk: Corey Koch MD IRON, TOTAL 126 mcg/dL Normal 45-160 [facility] Comment on above: Performed By: #### 7 573, 1759, 457 #### [facility] [address], [address] [place] [address] Switchboard Clerk: Corey Koch MD Emergency Department Summary on 12-23-2024 Emergency Department Summary [facility] Medical Records Department [address] [place] [address] Emergency Department Summary 12/23/24 MR#: [id number] Acct: [id number] Name: TRISTEN GOMEZ Rep #: [id number] : 1950 74 From: Niles Melara DO PCP: Dr. Tess Ontiveros DO Status:DEP ER Location: ED HPI History of Present Illness Chief Complaint: Lower Extremity Injury [facility] Medical History H/O Alexis thyroiditis Type 2 diabetes mellitus Breast pain, left Hemorrhoid Breast cancer screening Diabetes mellitus type 1.5 Osteoarthritis Morbid obesity with BMI of 40.0-44.9, adult Osteopenia Left upper arm pain Left shoulder pain Intertriginous dermatitis associated with moisture Chronic back pain Easy bruising Walker as ambulation aid Ambulates with cane Pulmonary embolism DVT (deep venous thrombosis) Syncope Gastric reflux Chronic cough History of stress test Hypertension History of anesthesia problem Degenerative arthritis of hip Hypertension Polyneuropathy Spinal stenosis of lumbar region Cataract fragments in right eye following surgery Herniated nucleus pulposus, L3-4 left Cubital tunnel syndrome on left Impaired gait and mobility Chronic neck pain Cervical spinal stenosis Carpal tunnel syndrome, left Cervical radiculopathy at C8 Glaucoma DM neuropathies Liver hemangioma Ulcer Alexis's thyroiditis Rheumatoid arthritis Lupus IBS (irritable bowel syndrome) Gout Cataracts, bilateral History of breast lump History of UTI Anemia Seasonal allergies Home Medications ???Medication ???Instructions ???Recorded ???Last Taken ???Type cholecalciferol (vitamin D3) 10 25 mcg PO DAILY Check with primary 07/06/21 Unknown History mcg (400 unit) capsule doctor gabapentin 600 mg tablet 600 mg PO DAILY Check with primary 07/06/21 Unknown History doctor vitamin B complex (B 1 tab PO DAILY supplement 09/18/21 Unknown History Complex-Vitamin B12 tablet) multivitamin 1 tab PO DAILY supplement 08/03/22 Unknown History cranberry extract 250 mg tablet 1 mg PO DAILY Check with primary 1 10/20/21 Unknown History doctor circaid wrap #2 ea 09/03/22 Unknown Rx acetaminophen 500 mg tablet 1,000 mg PO Q6 PRN 11/28/22 Unknow n History omeprazole 20 mg capsule,delayed 40 mg PO DAILY PRN reflux 11/28/22 Unknown History release Handicap Placard #1 ea 12/10/22 Unknown Rx blood-glucose meter (OneTouch #1 ea 01/18/23 Unknown Rx Ultra2 Meter kit) Electronic blood pressure cuff #1 ea 05/20/23 Unknown Rx diclofenac sodium 1 % topical gel 4 g topical BID PRN Muscle/joint 06/18/23 Unknown Rx pain #100 grams blood sugar diagnostic (OneTouch #180 ea 08/05/23 Unknown Rx Ultra Test strips) lancets #180 ea 08/05/23 Unknown Rx pen needle, diabetic 32 gauge x #150 ea 09/12/23 Unknown Rx 5/32 (BD Ultra-Fine Nan Pen Needle) insulin glargine 100 unit/mL (3 35 unit subcut DAILY DM 11/26/24 U nknown History mL) subcutaneous pen (Lantus Solostar U-100 Insulin) insulin lispro 100 unit/mL 10 unit subcut TID diabetes Unknown History subcutaneous cartridge (Humalog U-100 Insulin) methenamine hippurate 1 gram tablet 1 g PO Q12H 11/26/24 Unknown Hi story probenecid 500 mg tablet 250 mg PO Q12H 11/26/24 Unknown Hi story aspirin 81 mg tablet,delayed 81 mg PO DAILY@0800 #30 tabs 11/28 Unknown Rx release atorvastatin 80 mg tablet 80 mg PO QHS #30 tabs 11/28/24 Unk nown Rx carvedilol 3.125 mg tablet 3.125 mg PO BID #60 tabs 11/28/24 Unknown Rx clopidogrel 75 mg tablet 75 mg PO DAILY #30 tabs 11/28/24 U nknown Rx dapagliflozin propanediol 10 mg 10 mg PO DAILY #30 tabs 11/28/24 U nknown Rx tablet (Farxiga) losartan 25 mg tablet 25 mg PO DAILY #30 tabs 11/28/24 U nknown Rx Allergy/AdvReac Type Severity Reaction Status Date / Time aspirin Allergy Upset Verified 12/23/24 15:05 Stomach capsaicin Allergy Rash Verified 12/23/24 15:05 chlorhexidine Allergy Rash Verified 12/23/24 15:05 codeine Allergy Vomiting Verified 12/23/24 15:05 empagliflozin (From Allergy Other Verified 12/23/24 15:05 Jardiance) erythromycin base Allergy Other Verified 12/23/24 15:05 hydrocodone (From [place]) Allergy Other Verified 12/23/24 15:05 Sulfa (Sulfonamide Allergy Rash Verified 12/23/24 15:05 Antibiotics) tramadol Allergy Other Verified 12/23/24 15:05 trimethoprim Allergy PT UNSURE Verified 12/23/24 15:05 OF REACTION baclofen AdvReac Severe nightmares Verified 12/23/24 15:05 adhesive tape AdvReac Rash Verified 12/23/24 15:05 buprenorphine AdvReac Rash Verified 12/23/24 15:05 carbidopa (From Sinemet) AdvReac Rash Verified 12/23/24 15:05 cat dander AdvReac Other Verifi (more content not included)... Normal [facility] Venous Duplex US, Unilateral on 12-23-2024 Venous Duplex US, Unilateral [facility] [address] [place] [address] Venous Duplex US, Unilateral 12/23/24 1532 MR#: [id number] Acct: [id number] Name: TRISTEN GOMEZ TOSHIA Rep #: [id number] : 1950 74 From: Elio Correa MD Attending Dr: Status: DEP ER Ordering Dr: Niles Mleara DO Date: 12/23/24 Location: ED Sex: F C Admitted: Reason For Study Reason For Study: RLE Swelling RIGHT GSV is normal. CFV is compressible, spontaneous, phasic, competent and demonstrates normal augmentation. FV is compressible, spontaneous, phasic, competent and demonstrates normal augmentation. POP V is compressible, spontaneous, phasic, competent and demonstrates normal augmentation. T/P Trunk is compressible. PTV is compressible. RT PerV is compressible. Procedure This is a venous duplex using B-mode, color flow and spectral Doppler. Exam performed in department. The exam was diagnostic. A preliminary report was called and/or faxed to Dr. Melara. VL/Venous Duplex US, Unilateral Interpretation Summary Deep veins of the right lower extremity are patent and compressible segmentally. There is no evidence of right lower extremity deep vein thrombosis. The right great saphenous vein appears patent and compressible segmentally. Ordering Physician: Niles Melara Referring Physician: Tess Ontiveros Performed By: Shanda Nichols, Martin 12/23/24 1711 Date Elio Correa MD CC: Dr. Tess Ontiveros DO; Dr. Niles Melara DO Date Dictated: 12/23/24 1532 Date Transcribed: 12/23/24 1711 Back Padder: Signed Normal [facility] ECG 12-LEADon 12-17-2024 ECG 12-LEAD Ventricular Rate 79 Atrial Rate 79 P-R Interval 126 QRS Duration 86 Q-T Interval 388 QTC Calculation(Bazett) 444 R [place] -29 T [place] 26 QRS Count 13 Q Onset 214 P Onset 151 P Offset 189 T Offset 408 QTC Fredericia 425 Diagnosis Normal sinus rhythm Normal ECG When compared with ECG of 24-APR-2024 09:20, Sinus rhythm has replaced Ectopic atrial rhythm Confirmed by Kalpesh Tate ([id number]) on 12/17/2024 5:53:18 PM Normal [facility] Cardiac rehabilitation evalu ation reportOrdered By: Dequan Murray on 12-07-[address] [facility] Card[facility] Re[facility] [address] [place] [address] CR - History & Physical MR#: [id number] Acct: [id number] Name: TRISTEN GOMEZ Rep #:[id number] : 1950 74 From: Dequan Chung BS, RVT PCP: Dr. Tess Ontiveros, DO DOS: 12/04/24 CR - History & Physical General Arrival date:: 12/04/24 Arrival time:: 08:03 Date of Referral:: 11/26/24 Date of CR Evaluation:: 12/04/24 Referring Physician: Dr. Arellano Primary Diagnosis: AR STEMI <12 months History of Present Cardiac Event Onset Date Acute Myocardial Infarction within 12 months:: Yes (11/26/2024) PTCA or coronary stenting:: Yes Vessel: LAD Medications Ambulatory Orders ?Medication ?Instructions ?Recorded cholecalciferol (vitamin D3) 10 25 mcg PO DAILY Check with primary 07/06/21 mcg (400 unit) capsule doctor gabapentin 600 mg tablet 600 mg PO DAILY Check with p rimary 07/06/21 doctor vitamin B complex (B 1 tab PO DAILY supplement Complex-Vitamin B12 tablet) multivitamin 1 tab PO DAILY supplement cranberry extract 250 mg tablet 1 mg PO DAILY Check wi th primary 08/20/22 doctor circaid wrap #2 ea 09/03/22 acetaminophen 500 mg tablet 1,000 mg PO Q6 PRN 3 omeprazole 20 mg capsule,delayed 40 mg PO DAILY PRN re flux 11/28/22 release Handicap Placard #1 ea 12/10/22 blood-glucose meter (OneTouch #1 ea 01/18/23 Ultra2 Meter kit) Electronic blood pressure cuff #1 ea 05/20/23 diclofenac sodium 1 % topical gel 4 g topical BID PRN Muscle/joint 06/18/23 pain #100 grams blood sugar diagnostic (OneTouch #180 ea 08/05/23 Ultra Test strips) lancets #180 ea 08/05/23 pen needle, diabetic 32 gauge x #150 ea 09/12/23 (BD Ultra-Fine Nan Pen Needle) insulin glargine 100 unit/mL (3 35 unit subcut DAILY D M 11/26/24 mL) subcutaneous pen (Lantus Solostar U-100 Insulin) insulin lispro 100 unit/mL 10 unit subcut TID diabetes 11/26/24 subcutaneous cartridge (Humalog U-100 Insulin) methenamine hippurate 1 gram tablet 1 g PO Q12H probenecid 500 mg tablet 250 mg PO Q12H 11/26/24 aspirin 81 mg tablet,delayed 81 mg PO DAILY@0800 #30 t abs 11/28/24 release atorvastatin 80 mg tablet 80 mg PO QHS #30 tabs carvedilol 3.125 mg tablet 3.125 mg PO BID #60 tabs clopidogrel 75 mg tablet 75 mg PO DAILY #30 tabs 05/17 dapagliflozin propanediol 10 mg 10 mg PO DAILY #30 tab s 11/28/24 tablet (Farxiga) losartan 25 mg tablet 25 mg PO DAILY #30 tabs 05/17 Allergies Allergies aspirin Allergy (Verified 11/26/24 12:37) Upset Stomach severe abd pain capsaicin Allergy (Verified 11/26/24 12:37) Rash burning of skin chlorhexidine Allergy (Verified 11/26/24 12:37) Rash codeine Allergy (Verified 11/26/24 12:37) Vomiting empagliflozin (From Jardiance) Allergy (Verified 11/26/24 12:37) Other mood change, dark urine erythromycin base Allergy (Verified 11/26/24 12:37) Other Severe Abd pain hydrocodone (From [place]) Allergy (Verified 11/26/24 12:37) Other Hallucinations Sulfa (Sulfonamide Antibiotics) Allergy (Verified 11/26/24 12:37) Rash tramadol Allergy (Verified 11/26/24 12:37) Other Rash, irritable, mood change trimethoprim Allergy (Verified 11/26/24 12:37) PT UNSURE OF REACTION baclofen Adverse Reaction (Severe, Verified 11/26/24 12:37) nightmares adhesive tape Adverse Reaction (Verified 11/26/24 12:37) Rash buprenorphine Adverse Reaction (Verified 11/26/24 12:37) Rash with patch carbidopa (From Sinemet) Adverse Reaction (Verified 11/26/24 12:37) Rash cat dander Adverse Reaction (Verified 11/26/24 12:37) Other cigarette smoke Adverse Reaction (Verified 11/26/24 12:37) Other ciprofloxacin Adverse Reaction (Verified 11/26/24 12:37) Rash cyclobenzaprine Adverse Reaction (Verified 11/26/24 12:37) Nausea Environmental Allergies: Uncoded Adverse Reaction (Verified 11/26/24 12:37) Other All Chemicals levodopa (From Sinemet) Adverse Reaction (Verified 11/26/24 12:37) Other nightmares meperidine Adverse Reaction (Verified 11/26/24 12:37) PT UNSURE OF REACTION sulfamethoxazole (From Septra) Adverse Reaction (Verified 11/26/24 12:37) Nausea Sleep Disorder Evaluation Hx of Sleep Apnea: No Do you snore loudly (louder than talking or can be heard through closed doors)?:No Do you often feel tired/ fatigued/ sleepy during daytime?: No Has anyone observed you stop breathing during sleep?: No History of Hypertension (for STOP score): Yes STOP Results: Negative Advanced Directives Advanced Directives Power of Certified Endoscopy Technician: Yes Living Will: Yes Advance Directives Information Provided: Yes Advance Directives on File: Yes DNR Order?:: No Past Medical History Covid-19 Screening Physicial Symptoms Other Clinical Concerns Exposure Risk Pertinent Comorbidities 65 years or older:: Yes Has a serious heart condition:: Yes Diabetic:: Yes Past Medical Illness Medical History H/O Alexis thyroiditis Type 2 diabetes kal (more content not included)... [facility] No Panel InformationOrdered By: Dequan Murray on 12-07-[address] [facility] Cardiac Rehab [address] [place] [address] CR - Individual Treatment Plan MR#: [id number] Acct: [id number] Name: TRISTEN GOMEZ Rep #:[id number] : 1950 74 From: Dequan Chung BS, RVT PCP: Dr. Tess Ontiveros, DOS: 12/04/24 Diagnosis General Information Admitting Diagnosis: AR STEMI <12 months Personal Learning Style:: Audio/Visual Barriers to Learning: No Barriers Stage of change r/t lifestyle modifications:: Contemplation Gave educational material for:: Treating Heart Disease, How The Heart Works, What it means to have Heart Disease, How Coronary Artery Disease is Diagnosed, Heart Procedures, What Heart Medications Do, Risk Factors & Modifications, Living an Active Life, Nutrition, Emotions & Heart Disease, Stress Management & Relaxation and Sleep Disorders & Heart Disease Education/Goals Cardiac Rehabilitation Goals Personal Goals: Initial Assessment: Improve management of stress and emotions, Participate in home exercise program, Get back to work, or to resume activities faster, Improve knowledge of cardiac disease, Improve muscle strength and endurance, Improve diet and eating habits (eat healthier) and Control risk factors (learn risk factor modification) Scale for measuring improvement of personal goals Diagnosis & Disease Process Outcomes/Goals: Pt IDs own risk factors & lifestyle modifications by Session 10,Verbalizes symptoms of angina & response by session 3., Pt independently managesand Other Additional Outcomes/Goals: Plan/Interventions: Assist Pt to ID & engage in lifestyle modification to reduceCVD risk, Instruct on individual risk factors, Review symptoms of angina & emergency actions, Review secondary diagnosis & identify educational needs. and Other see comment 30 day Reassessments:: Not Met 30 day Reassessments:: Not Met 30 day Reassessments:: Not Met 30 day Reassessments:: Not Met Final Reassessments:: Not Met Safety Referral to Physical Therapy: No Referral to [facility] Case Management: No Fall Risk Assessed:: Yes Assistive Devices:: Cane Exercise - Initial Assessment Visit Date of Eval: 12/04/24 (initial eval ) Mets: Pre-: >5 METS for 30 minutes by discharge Physician Prescribed Exercise Modalities: Treadmill, Rower, Schwcrissn Airdyne AD-7, SciFit Stepper, SciFit Pro-II Ergometer and SciFit Lateral [place] Frequency: 3x/week for 12 weeks [36 sessions] Intensity: 60-80% of age predicted maximum heart rate reserve Duration: 30 - 45 minutes Current METSs:: 3 Target Heart Rate:: 88-110 Resting Blood Pressure: 122/68 EKG Type: NSR Outcomes & Goals Goals:: Verbalizes understanding of THR, RPE & goal METS by session 6, Documentsin home exercise log/reports 30 min aerobic 5 day/wk by DC, Demonstrates accurate pulse taking by DC and Other additional outcome/goals: see below Intervention & Plan Exercise Program Goals: Instruct on personal THR & RPE, Instruct on MET level & personal MET goal, Show patient to take own pulse /validate performance until accurate, Instruct on home exercise and Other additional plan/int Physical Activity Home Exercise Physical Activity - Home Exercise: Safe Exercise, Warm-up, Self-monitoring, Cool-Down, Home Exercise > 30 min Daily and Sitting Time <3 hours/daily Outcomes & Goals Outcomes/Goals: Demonstrates correct Warm-up/exercise Cool-Down (S3) if = 2.5 METs, Verbalizes symptoms of exercise intolerance by Session 3 (S3), Demonstratesafe equipment use (S3) & follows exercise prescrition (6) and Other: See below Intervention & Plan Plan/Intervention: Instruct warm-up & cool-down if exercising at > 2 METs, Instruct on symptoms of exercise intolerance & actions to take, Instruct & monitor on saf, Assess intial functional capacity & safety risk and Other See below Nutrition - Initial Assessment Program Goals Nutrition Program Goals Patient has diagnosis of Hyperlipidemia (ICD E78)?: No Visit Date of Eval: 12/04/24 (initial eval ) Cholesterol/Lipids (Other Core Measures) Determine presence & major risk factors that modify LDL goal: Hypertension or hypertensive medication, Low HDL cholesterol <40 mg/dL*, Family history of premature CHD in Male < 55 years: female <65 yearsFa and Age men > 45 years; women >/= 55 years Outcomes/Goals: Pt IDs own risk factors & lifestyle modifications by Session 10,Verbalizes symptoms of angina & response by session 3., Pt independently managesand Other Additional Outcomes/Goals: Intervention/Plan: Advocate for lipid panel cholesterol medication if applicable, Instruct on personal lipid levels & lipid goals/NCEP guidelines, Instruct on cholesterol and Other additional plan/int Diabetes (Other Core Measures) Diabetes Type: Diagnosis Type II ICD-10 E11 Insulin dependent injection/pump?: Yes Non-Insulin Dependent?: Yes Do you monitor your blood sugar at home?: Yes Referral to Diabetic Clinic:: No Weight Mgt (Other Care) Height: 5 ft 6 in Weight:: 250 lb BMI: 40.3 Diagnosis Overweight/Obesity BMI> 30% ICD-10 E66: Yes Diagnosis High BMI/Morbid Obesity BMI> 35% ICD-10 Z68: Yes (more content not included)... [facility] CR - History AND Physicalon 12-04-2024 CR - History & Physical [facility] Cardiac Rehab [address] [place] [address] CR - History Physical MR#: [id number] Acct: [id number] Name: TRISTEN GOMEZ Rep #: [id number] : 1950 74 From: Dequan Chung BS, RVT PCP: Dr. Tess Ontiveros, DO DOS: 12/04/24 CR - History Physical General Arrival date:: 12/04/24 Arrival time:: 08:03 Date of Referral:: 11/26/24 Date of CR Evaluation:: 12/04/24 Referring Physician: Dr. Arellano Primary Diagnosis: AR STEMI <12 months History of Present Cardiac Event Onset Date Acute Myocardial Infarction within 12 months:: Yes (11/26/2024) PTCA or coronary stenting:: Yes Vessel: LAD Medications Ambulatory Orders ???Medication ???Instructions ???Recorded cholecalciferol (vitamin D3) 10 25 mcg PO DAILY Check with primary 07/06/21 mcg (400 unit) capsule doctor gabapentin 600 mg tablet 600 mg PO DAILY Check with primary 07/06/21 doctor vitamin B complex (B 1 tab PO DAILY supplement 09/18/21 Complex-Vitamin B12 tablet) multivitamin 1 tab PO DAILY supplement 08/03/22 cranberry extract 250 mg tablet 1 mg PO DAILY Check with primary 1 10/20/21 doctor circaid wrap #2 ea 09/03/22 acetaminophen 500 mg tablet 1,000 mg PO Q6 PRN 11/28/22 omeprazole 20 mg capsule,delayed 40 mg PO DAILY PRN reflux 11/28/22 release Handicap Placard #1 ea 12/10/22 blood-glucose meter (OneTouch #1 ea 01/18/23 Ultra2 Meter kit) Electronic blood pressure cuff #1 ea 05/20/23 diclofenac sodium 1 % topical gel 4 g topical BID PRN Muscle/joint 06/18/23 pain #100 grams blood sugar diagnostic (OneTouch #180 ea 08/05/23 Ultra Test strips) lancets #180 ea 08/05/23 pen needle, diabetic 32 gauge x #150 ea 09/12/23 (BD Ultra-Fine Nan Pen Needle) insulin glargine 100 unit/mL (3 35 unit subcut DAILY DM 11/26/24 mL) subcutaneous pen (Lantus Solostar U-100 Insulin) insulin lispro 100 unit/mL 10 unit subcut TID diabetes subcutaneous cartridge (Humalog U-100 Insulin) methenamine hippurate 1 gram tablet 1 g PO Q12H 11/26/24 probenecid 500 mg tablet 250 mg PO Q12H 11/26/24 aspirin 81 mg tablet,delayed 81 mg PO DAILY@0800 #30 tabs 11/28 release atorvastatin 80 mg tablet 80 mg PO QHS #30 tabs 11/28/24 carvedilol 3.125 mg tablet 3.125 mg PO BID #60 tabs 11/28/24 clopidogrel 75 mg tablet 75 mg PO DAILY #30 tabs 11/28/24 dapagliflozin propanediol 10 mg 10 mg PO DAILY #30 tabs 11/28/24 tablet (Farxiga) losartan 25 mg tablet 25 mg PO DAILY #30 tabs 11/28/24 Allergies Allergies aspirin Allergy (Verified 11/26/24 12:37) Upset Stomach severe abd pain capsaicin Allergy (Verified 11/26/24 12:37) Rash burning of skin chlorhexidine Allergy (Verified 11/26/24 12:37) Rash codeine Allergy (Verified 11/26/24 12:37) Vomiting empagliflozin (From Jardiance) Allergy (Verified 11/26/24 12:37) Other mood change, dark urine erythromycin base Allergy (Verified 11/26/24 12:37) Other Severe Abd pain hydrocodone (From [place]) Allergy (Verified 11/26/24 12:37) Other Hallucinations Sulfa (Sulfonamide Antibiotics) Allergy (Verified 11/26/24 12:37) Rash tramadol Allergy (Verified 11/26/24 12:37) Other Rash, irritable, mood change trimethoprim Allergy (Verified 11/26/24 12:37) PT UNSURE OF REACTION baclofen Adverse Reaction (Severe, Verified 11/26/24 12:37) nightmares adhesive tape Adverse Reaction (Verified 11/26/24 12:37) Rash buprenorphine Adverse Reaction (Verified 11/26/24 12:37) Rash with patch carbidopa (From Sinemet) Adverse Reaction (Verified 11/26/24 12:37) Rash cat dander Adverse Reaction (Verified 11/26/24 12:37) Other cigarette smoke Adverse Reaction (Verified 11/26/24 12:37) Other ciprofloxacin Adverse Reaction (Verified 11/26/24 12:37) Rash cyclobenzaprine Adverse Reaction (Verified 11/26/24 12:37) Nausea Environmental Allergies: Uncoded Adverse Reaction (Verified 11/26/24 12:37) Other All Chemicals levodopa (From Sinemet) Adverse Reaction (Verified 11/26/24 12:37) Other nightmares meperidine Adverse Reaction (Verified 11/26/24 12:37) PT UNSURE OF REACTION sulfamethoxazole (From Septra) Adverse Reaction (Verified 11/26/24 12:37) Nausea Sleep Disorder Evaluation Hx of Sleep Apnea: No Do you snore loudly (louder than talking or can be heard through closed doors)?: No Do you often feel tired/ fatigued/ sleepy during daytime?: No Has anyone observed you stop breathing during sleep?: No History of Hypertension (for STOP score): Yes STOP Results: Negative Advanced Directives Advanced Directives Power of Certified Endoscopy Technician: Yes Living Will: Yes Advance Directives Information Provided: Yes Advance Directives on File: Yes DNR Order?:: No Past Medical History Covid-19 Screening Physicial Symptoms Other Clinical Concerns Exposure Risk Pertinent C (more content not included)... Normal [facility] Bacteria identifiedon 2024 Bacteria identified Cx Nom (U) Test: Urine Culture Specimen Source: Clean Catch/Voided Specimen Type: Urine Specimen Date: 12/03/20241114 Result Date: 12/06/2024 07 Result Status: Final result Abnormal: Yes Resulting Lab: [facility] [address] [address] CULTURE >=100,000 CFU/mL Escherichia coli (Abnormal) SUSCEPTIBILITY Escherichia coli METHOD MICROSCAN ---- AMPICILLIN <=8.000 ug/ml Susceptible CEFAZOLIN <=2 ug/ml Susceptible CEFAZOLIN (UNCOMPLICATED UTIS ONLY) <=2 ug/ml Susceptible CIPROFLOXACIN <=0.250 ug/ml Susceptible GENTAMICIN <=2.000 ug/ml Susceptible NITROFURANTOIN <=32 ug/ml Susceptible PIPERACILLIN/TAZOBACTA M <=8.000 ug/ml Susceptible TRIMETHOPRIM/SULFAMETH OXAZOLE <=2/38 ug/ml Susceptible Abnormal [facility] Comment on above: Performed By: #### 6 30-4 #### TRISTEN Castañeda ([id number]) [facility] ([facility]) [address] [place] [address] POCT UA Automated manually r esultedon 12-03-2024 Appearance (U) Clear Clear [facility] Work Phone: Glucose Test strip (U) [Mass/Vol] Negative NEGATIVE mg/dl [facility] Work Phone: Hemoglobin Ql (U) Negative NEGATIVE [facility] Work Phone: Interpretation and review of laboratory results Abnormal [facility] Work Phone: Leukocyte esterase Test strip Ql (U) SMALL (1+) Abnormal NEGATIVE [facility] Work Phone: Nitrite Ql (U) Negative NEGATIVE [facility] Work Phone: pH (U) 6.0 [pH] No Reference Range Established [facility] Work Phone: POC Bilirubin, Urine Negative NEGATIVE [facility] Work Phone: POC Color, Urine Yellow Straw, Yellow, Light-Yellow [facility] Work Phone: POC Ketones, Urine Negative NEGATIVE mg/dl [facility] Work Phone: POC Protein, Urine Negative NEGATIVE mg/dl [facility] Work Phone: POC Specific [place], Urine <=1.005 1.005 - 1.035 [facility] Work Phone: POC Urobilinogen, Urine 0.2 0.2, 1.0 EU/DL [facility] Work Phone: [facility] Work Phone: Basic Metabolic Profile (BMP )on 11-30-2024 BUN Normal 4-19 [facility] Comment on above: Result Comment: Canc elled via OM: Order cancelled - Patient discharged Performed By: #### L 300.3900, L100.0100, L501.5200, L300.4310, L501.4021, L500.2500 #### [facility] [address] [place], [address] BUN/CRE Normal 10-20 [facility] Comment on above: Result Comment: Canc elled via OM: Order cancelled - Patient discharged Performed By: #### L 300.3900, L100.0100, L501.5200, L300.4310, L501.4021, L500.2500 #### [facility] [address] [place], [address] Calcium Normal 7.6-11.0 [facility] Comment on above: Result Comment: Canc elled via OM: Order cancelled - Patient discharged Performed By: #### L 300.3900, L100.0100, L501.5200, L300.4310, L501.4021, L500.2500 #### [facility] [address] [place], [address] CL Normal 98-108 [facility] Comment on above: Result Comment: Canc elled via OM: Order cancelled - Patient discharged Performed By: #### L 300.3900, L100.0100, L501.5200, L300.4310, L501.4021, L500.2500 #### [facility] [address] [place], [address] CO2 Normal 21.0-32.0 [facility] Comment on above: Result Comment: Canc elled via OM: Order cancelled - Patient discharged Performed By: #### L 300.3900, L100.0100, L501.5200, L300.4310, L501.4021, L500.2500 #### [facility] [address] [place], [address] CREAT,SERUM Normal 0.70-1.20 [facility] Comment on above: Result Comment: Canc elled via OM: Order cancelled - Patient discharged Performed By: #### L 300.3900, L100.0100, L501.5200, L300.4310, L501.4021, L500.2500 #### [facility] [address] [place], [address] eGFR Normal >60 [facility] Comment on above: Result Comment: Canc elled via OM: Order cancelled - Patient discharged Performed By: #### L 300.3900, L100.0100, L501.5200, L300.4310, L501.4021, L500.2500 #### [facility] [address] [place], [address] GAP Normal 5-15 [facility] Comment on above: Result Comment: Canc elled via OM: Order cancelled - Patient discharged Performed By: #### L 300.3900, L100.0100, L501.5200, L300.4310, L501.4021, L500.2500 #### [facility] [address] [place], [address] GLU Normal 70-99 [facility] Comment on above: Result Comment: Canc elled via OM: Order cancelled - Patient discharged Performed By: #### L 300.3900, L100.0100, L501.5200, L300.4310, L501.4021, L500.2500 #### [facility] [address] [place], [address] Potassium Normal 3.3-5.1 [facility] Comment on above: Result Comment: Canc elled via OM: Order cancelled - Patient discharged Performed By: #### L 300.3900, L100.0100, L501.5200, L300.4310, L501.4021, L500.2500 #### [facility] [address] [place], [address] Basic Metabolic Profile (BMP) Normal 133-145 [facility] Comment on above: Result Comment: Canc elled via OM: Order cancelled - Patient discharged Performed By: #### L 300.3900, L100.0100, L501.5200, L300.4310, L501.4021, L500.2500 #### [facility] [address] [place], [address] CBC W/Diff, Automatedon 03- 0-2024 Absolute Neut Normal 2.0-7.7 [facility] Comment on above: Result Comment: Canc elled via OM: Order cancelled - Patient discharged Performed By: #### L 300.3900, L100.0100, L501.5200, L300.4310, L501.4021, L500.2500 #### [facility] [address] [place], [address] HCT Normal 37-47 [facility] Comment on above: Result Comment: Canc elled via OM: Order cancelled - Patient discharged Performed By: #### L 300.3900, L100.0100, L501.5200, L300.4310, L501.4021, L500.2500 #### [facility] [address] [place], [address] HGB Normal 12.0-15.0 [facility] Comment on above: Result Comment: Canc elled via OM: Order cancelled - Patient discharged Performed By: #### L 300.3900, L100.0100, L501.5200, L300.4310, L501.4021, L500.2500 #### [facility] [address] [place], [address] MCH Normal 27.0-32.0 [facility] Comment on above: Result Comment: Canc elled via OM: Order cancelled - Patient discharged Performed By: #### L 300.3900, L100.0100, L501.5200, L300.4310, L501.4021, L500.2500 #### [facility] [address] [place], [address] MCHC Normal 32-36 [facility] Comment on above: Result Comment: Canc elled via OM: Order cancelled - Patient discharged Performed By: #### L 300.3900, L100.0100, L501.5200, L300.4310, L501.4021, L500.2500 #### [facility] [address] [place], [address] MCV Normal 81-99 [facility] Comment on above: Result Comment: Canc elled via OM: Order cancelled - Patient discharged Performed By: #### L 300.3900, L100.0100, L501.5200, L300.4310, L501.4021, L500.2500 #### [facility] [address] [place], [address] NEUT% Normal 47-70 [facility] Comment on above: Result Comment: Canc elled via OM: Order cancelled - Patient discharged Performed By: #### L 300.3900, L100.0100, L501.5200, L300.4310, L501.4021, L500.2500 #### [facility] [address] [place], [address] PLT Normal 150-450 [facility] Comment on above: Result Comment: Canc elled via OM: Order cancelled - Patient discharged Performed By: #### L 300.3900, L100.0100, L501.5200, L300.4310, L501.4021, L500.2500 #### [facility] [address] [place], [address] RBC Normal 4.2-5.4 [facility] Comment on above: Result Comment: Canc elled via OM: Order cancelled - Patient discharged Performed By: #### L 300.3900, L100.0100, L501.5200, L300.4310, L501.4021, L500.2500 #### [facility] [address] [place], [address] RDW CV Normal 11.6-14.6 [facility] Comment on above: Result Comment: Canc elled via OM: Order cancelled - Patient discharged Performed By: #### L 300.3900, L100.0100, L501.5200, L300.4310, L501.4021, L500.2500 #### [facility] [address] [place], [address] RDW SD Normal 35.1-43.9 [facility] Comment on above: Result Comment: Canc elled via OM: Order cancelled - Patient discharged Performed By: #### L 300.3900, L100.0100, L501.5200, L300.4310, L501.4021, L500.2500 #### [facility] [address] [place], [address] WBC Normal 4.4-11.0 [facility] Comment on above: Result Comment: Canc elled via OM: Order cancelled - Patient discharged Performed By: #### L 300.3900, L100.0100, L501.5200, L300.4310, L501.4021, L500.2500 #### [facility] [address] [place], [address] Basic Metabolic Profile (BMP )on 11-29-2024 BUN Normal 4-19 [facility] Comment on above: Result Comment: Canc elled via OM: Order cancelled - Patient discharged Performed By: #### L 500.2500, L100.0100 #### [facility] [address] [place], [address] BUN/CRE Normal 10-20 [facility] Comment on above: Result Comment: Canc elled via OM: Order cancelled - Patient discharged Performed By: #### L 500.2500, L100.0100 #### [facility] [address] [place], [address] Calcium Normal 7.6-11.0 [facility] Comment on above: Result Comment: Canc elled via OM: Order cancelled - Patient discharged Performed By: #### L 500.2500, L100.0100 #### [facility] [address] [place], [address] CL Normal 98-108 [facility] Comment on above: Result Comment: Canc elled via OM: Order cancelled - Patient discharged Performed By: #### L 500.2500, L100.0100 #### [facility] [address] [place], [address] CO2 Normal 21.0-32.0 [facility] Comment on above: Result Comment: Canc elled via OM: Order cancelled - Patient discharged Performed By: #### L 500.2500, L100.0100 #### [facility] [address] [place], [address] CREAT,SERUM Normal 0.70-1.20 [facility] Comment on above: Result Comment: Canc elled via OM: Order cancelled - Patient discharged Performed By: #### L 500.2500, L100.0100 #### [facility] [address] [place], [address] eGFR Normal >60 [facility] Comment on above: Result Comment: Canc elled via OM: Order cancelled - Patient discharged Performed By: #### L 500.2500, L100.0100 #### [facility] [address] [place], [address] GAP Normal 5-15 [facility] Comment on above: Result Comment: Canc elled via OM: Order cancelled - Patient discharged Performed By: #### L 500.2500, L100.0100 #### [facility] [address] [place], [address] GLU Normal 70-99 [facility] Comment on above: Result Comment: Canc elled via OM: Order cancelled - Patient discharged Performed By: #### L 500.2500, L100.0100 #### [facility] [address] [place], [address] Potassium Normal 3.3-5.1 [facility] Comment on above: Result Comment: Canc elled via OM: Order cancelled - Patient discharged Performed By: #### L 500.2500, L100.0100 #### [facility] [address] [place], [address] Basic Metabolic Profile (BMP) Normal 133-145 [facility] Comment on above: Result Comment: Canc elled via OM: Order cancelled - Patient discharged Performed By: #### L 500.2500, L100.0100 #### [facility] [address] [place], [address] CBC W/Diff, Automatedon 03-0 9-2024 Absolute Neut Normal 2.0-7.7 [facility] Comment on above: Result Comment: Canc elled via OM: Order cancelled - Patient discharged Performed By: #### L 500.2500, L100.0100 #### [facility] [address] [place], [address] HCT Normal 37-47 [facility] Comment on above: Result Comment: Canc elled via OM: Order cancelled - Patient discharged Performed By: #### L 500.2500, L100.0100 #### [facility] [address] [place], [address] HGB Normal 12.0-15.0 [facility] Comment on above: Result Comment: Canc elled via OM: Order cancelled - Patient discharged Performed By: #### L 500.2500, L100.0100 #### [facility] [address] [place], [address] MCH Normal 27.0-32.0 [facility] Comment on above: Result Comment: Canc elled via OM: Order cancelled - Patient discharged Performed By: #### L 500.2500, L100.0100 #### [facility] [address] [place], [address] MCHC Normal 32-36 [facility] Comment on above: Result Comment: Canc elled via OM: Order cancelled - Patient discharged Performed By: #### L 500.2500, L100.0100 #### [facility] [address] [place], [address] MCV Normal 81-99 [facility] Comment on above: Result Comment: Canc elled via OM: Order cancelled - Patient discharged Performed By: #### L 500.2500, L100.0100 #### [facility] [address] [place], [address] NEUT% Normal 47-70 [facility] Comment on above: Result Comment: Canc elled via OM: Order cancelled - Patient discharged Performed By: #### L 500.2500, L100.0100 #### [facility] [address] [place], [address] PLT Normal 150-450 [facility] Comment on above: Result Comment: Canc elled via OM: Order cancelled - Patient discharged Performed By: #### L 500.2500, L100.0100 #### [facility] [address] [place], [address] RBC Normal 4.2-5.4 [facility] Comment on above: Result Comment: Canc elled via OM: Order cancelled - Patient discharged Performed By: #### L 500.2500, L100.0100 #### [facility] [address] [place], [address] RDW CV Normal 11.6-14.6 [facility] Comment on above: Result Comment: Canc elled via OM: Order cancelled - Patient discharged Performed By: #### L 500.2500, L100.0100 #### [facility] [address] [place], [address] RDW SD Normal 35.1-43.9 [facility] Comment on above: Result Comment: Canc elled via OM: Order cancelled - Patient discharged Performed By: #### L 500.2500, L100.0100 #### [facility] [address] [place], [address] WBC Normal 4.4-11.0 [facility] Comment on above: Result Comment: Canc elled via OM: Order cancelled - Patient discharged Performed By: #### L 500.2500, L100.0100 #### [facility] [address] [place], [address] Absolute lymphocyte countOrd ered By: Tahira De on 11-28-2024 Lymphocytes Auto (Unsp spec) [#/Vol] 1.99 10*3/uL 0.83-4.51 [facility] Absolute neutrophil countOrd ered By: Tahira De on 11-28-2024 Neutrophils (Bld) [#/Vol] 4.9 10*3/uL 2.0-7.7 [facility] Anion gap in Serum or Plasma Ordered By: Tahira De on 11-28-2024 Anion gap [Moles/Vol] 12 mmol/L 5-15 [facility] Automated lymphocyte count a s percentage of total leukocytesOrdered By: Tahira De on 11-28-2024 Lymphocytes/100 WBC Auto (Unsp spec) 25.6 % 19-41 [facility] BUN/creatinine ratioOrdered By: Tahira De on 11-28-2024 Urea nitrogen/Creatinine [Mass ratio] 16.8 mg/mg - [facility] Basic Metabolic Profile (BMP )on 11-28-2024 BUN/CRE 16.8 RATIO Normal 07-12 [facility] Comment on above: Performed By: #### L 300.3900, L100.0100, L501.5200, L300.4310, L501.4021, L500.2500 #### [facility] [address] [place], [address] Calcium [Mass/Vol] 9.2 mg/dL Normal 7.6-11.0 [facility] Comment on above: Performed By: #### L 300.3900, L100.0100, L501.5200, L300.4310, L501.4021, L500.2500 #### [facility] [address] [place], [address] Chloride [Moles/Vol] 108 mmol/L Normal 98-[address] [facility] Comment on above: Performed By: #### L 300.3900, L100.0100, L501.5200, L300.4310, L501.4021, L500.2500 #### [facility] [address] [place], [address] CO2 [Moles/Vol] 21.7 mmol/L Normal 21.0-32.0 [facility] Comment on above: Performed By: #### L 300.3900, L100.0100, L501.5200, L300.4310, L501.4021, L500.2500 #### [facility] [address] [place], [address] Creatinine [Mass/Vol] 0.79 mg/dL Normal 0.70-1.20 [facility] Comment on above: Performed By: #### L 300.3900, L100.0100, L501.5200, L300.4310, L501.4021, L500.2500 #### [facility] [address] [place], [address] ECRCL 79.73 ml/min Normal 50-250 [facility] Comment on above: Performed By: #### L 300.3900, L100.0100, L501.5200, L300.4310, L501.4021, L500.2500 #### [facility] [address] [place], [address] GAP 12 Normal 5-15 [facility] Comment on above: Performed By: #### L 300.3900, L100.0100, L501.5200, L300.4310, L501.4021, L500.2500 #### [facility] [address] [place], [address] GFR/1.73 sq M.predicted among non-blacks MDRD (S/P/Bld) [Vol rate/Area] 79 mL/min/{1.73_m2} Normal >60 [facility] Comment on above: Result Comment: mL/m in/1.73m2 CKD-EPI Creatinine Equation (2020) Performed By: #### L 300.3900, L100.0100, L501.5200, L300.4310, L501.4021, L500.2500 #### [facility] [address] [place], [address] Glucose [Mass/Vol] 166 mg/dL High 70-99 [facility] Comment on above: Performed By: #### L 300.3900, L100.0100, L501.5200, L300.4310, L501.4021, L500.2500 #### [facility] [address] [place], [address] Potassium [Moles/Vol] 4.1 mmol/L Normal 3.3-5.1 [facility] Comment on above: Performed By: #### L 300.3900, L100.0100, L501.5200, L300.4310, L501.4021, L500.2500 #### [facility] [address] [place], [address] Sodium [Moles/Vol] 141 mmol/L Normal 133-145 [facility] Comment on above: Performed By: #### L 300.3900, L100.0100, L501.5200, L300.4310, L501.4021, L500.2500 #### [facility] [address] [place], [address] Urea nitrogen [Mass/Vol] 13 mg/dL Normal 4-19 [facility] Comment on above: Performed By: #### L 300.3900, L100.0100, L501.5200, L300.4310, L501.4021, L500.2500 #### [facility] [address] [place], [address] Basophil percentageOrdered B y: Tahira De on 11-28-2024 Basophils/100 WBC (Bld) 0.5 % 0-1 [facility] Bedside Glucoseon 11-28-2024 FINGERSTICK GLU 174 mg/dL High 74-106 [facility] Comment on above: Result Comment: RAI JOHNSON OF PATIENT CARE PER NURSING PROTOCOL Performed By: #### L 501.080 #### [facility] [address] [place], [address] CBC W/Diff, Automatedon Absolute Lymph 1.99 X10 3/uL Normal 0.83-4.51 [facility] Comment on above: Performed By: #### L 300.3900, L100.0100, L501.5200, L300.4310, L501.4021, L500.2500 #### [facility] [address] [place], [address] Absolute Neut 4.9 X10 3/uL Normal 2.0-7.7 [facility] Comment on above: Performed By: #### L 300.3900, L100.0100, L501.5200, L300.4310, L501.4021, L500.2500 #### [facility] [address] [place], [address] Basophils/100 WBC (Bld) 0.5 % Normal 0-1 [facility] Comment on above: Performed By: #### L 300.3900, L100.0100, L501.5200, L300.4310, L501.4021, L500.2500 #### [facility] [address] [place], [address] Eosinophils/100 WBC (Bld) 4.5 % Normal 0-5 [facility] Comment on above: Performed By: #### L 300.3900, L100.0100, L501.5200, L300.4310, L501.4021, L500.2500 #### [facility] [address] [place], [address] Erythrocyte distribution width (RBC) [Ratio] 13.0 % Normal 11.6-14.6 [facility] Comment on above: Performed By: #### L 300.3900, L100.0100, L501.5200, L300.4310, L501.4021, L500.2500 #### [facility] [address] [place], [address] Hematocrit (Bld) [Volume fraction] 35.2 % Low 37-47 [facility] Comment on above: Performed By: #### L 300.3900, L100.0100, L501.5200, L300.4310, L501.4021, L500.2500 #### [facility] [address] [place], [address] Hemoglobin (Bld) [Mass/Vol] 11.7 g/dL Low 12.0-15.0 [facility] Comment on above: Performed By: #### L 300.3900, L100.0100, L501.5200, L300.4310, L501.4021, L500.2500 #### [facility] [address] [place], [address] IG% 0.400 Normal 0.0-0.9 [facility] Comment on above: Result Comment: IG% - Immature Granulocytes (promyelocytes, myelocytes and metamyelocytes) > 1% indicates that a LEFT SHIFT is Present. Performed By: #### L 300.3900, L100.0100, L501.5200, L300.4310, L501.4021, L500.2500 #### [facility] [address] [place], [address] Lymphocytes/100 WBC (Bld) 25.6 % Normal 19-41 [facility] Comment on above: Performed By: #### L 300.3900, L100.0100, L501.5200, L300.4310, L501.4021, L500.2500 #### [facility] [address] [place], [address] MCH (RBC) [Entitic mass] 31.1 pg Normal 27.0-32.0 [facility] Comment on above: Performed By: #### L 300.3900, L100.0100, L501.5200, L300.4310, L501.4021, L500.2500 #### [facility] [address] [place], [address] MCHC (RBC) [Mass/Vol] 33.2 g/dL Normal 32-36 [facility] Comment on above: Performed By: #### L 300.3900, L100.0100, L501.5200, L300.4310, L501.4021, L500.2500 #### [facility] [address] [place], [address] MCV (RBC) [Entitic vol] 93.6 fL Normal 81-99 [facility] Comment on above: Performed By: #### L 300.3900, L100.0100, L501.5200, L300.4310, L501.4021, L500.2500 #### [facility] [address] [place], [address] Monocytes/100 WBC (Bld) 6.4 % Normal 0-10 [facility] Comment on above: Performed By: #### L 300.3900, L100.0100, L501.5200, L300.4310, L501.4021, L500.2500 #### [facility] [address] [place], [address] Neutrophils/100 WBC (Bld) 62.6 % Normal 47-70 [facility] Comment on above: Performed By: #### L 300.3900, L100.0100, L501.5200, L300.4310, L501.4021, L500.2500 #### [facility] [address] [place], [address] Nucleated RBC (Bld) [#/Vol] 0 10*3/uL Normal 0-5 [facility] Comment on above: Performed By: #### L 300.3900, L100.0100, L501.5200, L300.4310, L501.4021, L500.2500 #### [facility] [address] [place], [address] Platelet mean volume (Bld) [Entitic vol] 9.0 fL Normal 6.2-12.0 [facility] Comment on above: Performed By: #### L 300.3900, L100.0100, L501.5200, L300.4310, L501.4021, L500.2500 #### [facility] [address] [place], [address] Platelets (Bld) [#/Vol] 281 10*3/uL Normal 150-450 [facility] Comment on above: Performed By: #### L 300.3900, L100.0100, L501.5200, L300.4310, L501.4021, L500.2500 #### [facility] [address] [place], [address] RBC (Bld) [#/Vol] 3.76 10*6/uL Low 4.2-5.4 [facility] Comment on above: Performed By: #### L 300.3900, L100.0100, L501.5200, L300.4310, L501.4021, L500.2500 #### [facility] [address] [place], [address] RDW SD 44.9 fl High 35.1-43.9 [facility] Comment on above: Performed By: #### L 300.3900, L100.0100, L501.5200, L300.4310, L501.4021, L500.2500 #### [facility] [address] [place], [address] WBC (Bld) [#/Vol] 7.8 10*3/uL Normal 4.4-11.0 [facility] Comment on above: Performed By: #### L 300.3900, L100.0100, L501.5200, L300.4310, L501.4021, L500.2500 #### [facility] [address] [place], [address] Carbon dioxide, total [Moles /volume] in Central venous bloodOrdered By: Tahira De on 11-28-2024 CO2 [Moles/Vol] 21.7 mmol/L 21.0-32.0 [facility] Chloride assayOrdered By: Tiffany De on 11-28-2024 Chloride [Moles/Vol] 108 mmol/L 98-[address] [facility] Discharge Instructionon Discharge Instruction [facility] Medical Records Department [address] [place] [address] Instructions for Home/Discharge Instructions 11/28/24 1135 MR#: [id number] Acct: [id number] Name: TRISTEN GOMEZ Rep #: [id number] : 1950 74 From: Tahira De MD PCP: Dr. Aries Hill MD Status:ADM IN Discharge Instructions Diet Discharge Diet: Low fat / Low cholesterol DC O2, CPAP, BIPAP needs Home O2 Discharge instructions: No Dressing / Incision Discharge Activity: Return to Normal Activity Weight Bearing Status: Weight bearing as tolerated Dressing / Incision Call your doctor if you observe: Fever of 101 or Higher, Shortness of breath, Dizziness, Swelling in the ankles and Chest pain Follow Up Care Test Results: Test results from this visit will be discussed in further detail at your follow-up appointment, if applicable. Discharge Plan Admission Admit Date/Time: 11/26/24 14:22 Primary Reason for Your Visit: STEMI Attending Provider: Tahira De Primary Care Provider: Aries Hill Consulting Providers: Sanchez Mendez; Saurav Arellano Instructions Patient Instructions: Heart Attack Dc, Heart Attack Meds Discharge Orders/Prescriptions Prescriptions: New aspirin 81 mg Tablet,Delayed Release (Dr/Ec) 81 mg PO DAILY@0800 Qty: 30 3RF atorvastatin 80 mg Tablet 80 mg PO QHS Qty: 30 2RF clopidogrel 75 mg Tablet 75 mg PO DAILY Qty: 30 3RF carvedilol 3.125 mg Tablet 3.125 mg PO BID Qty: 60 2RF dapagliflozin propanediol [Farxiga] 10 mg Tablet 10 mg PO DAILY Qty: 30 2RF losartan 25 mg Tablet 25 mg PO DAILY Qty: 30 2RF Continued gabapentin 600 mg tablet 600 mg PO DAILY omeprazole 20 mg capsule,delayed release(DR/EC) 40 mg PO DAILY PRN (Reason: reflux) acetaminophen 500 mg tablet 1,000 mg PO Q6 PRN multivitamin Tablet 1 tab PO DAILY methenamine hippurate 1 gram tablet 1 g PO Q12H probenecid 500 mg tablet 250 mg PO Q12H Patient Comments: Per Pts Pharmacy pt has not yet filled Humalog U-100 Insulin 100 unit/mL cartridge 10 unit subcut TID Rx Instructions: plus sliding scale insulin glargine [Lantus Solostar U-100 Insulin] 100 unit/mL (3 mL) insulin pen 35 unit subcut DAILY diclofenac sodium 1 % gel 4 g topical BID PRN (Reason: Muscle/joint pain) Qty: 100 6RF Discontinued losartan 50 mg tablet 50 mg PO DAILY Qty: 90 1RF Januvia 100 mg Tablet 100 mg PO DAILY metoprolol tartrate 25 mg tablet 25 mg PO Q12H No Action cholecalciferol (vitamin D3) 10 mcg (400 unit) capsule 25 mcg PO DAILY cranberry extract 250 mg tablet 1 mg PO DAILY Patient Comments: 30,000 vitamin B complex [B Complex-Vitamin B12] Tablet 1 tab PO DAILY (DME) Handicap Placard See Rx Instructions .ROUTE .MEDSUPPLY Qty: 1 0RF Rx Instructions: As directed, length of time 3 years (DME) circaid wrap large See Rx Instructions .Route .MEDSUPPLY Qty: 2 2RF Rx Instructions: Wear daily, remove at bedtime (DME) Electronic blood pressure cuff See Rx Instructions .Route .MEDSUPPLY Qty: 1 0RF Rx Instructions: As directed (DME) blood-glucose meter [OneTouch Ultra2 Meter] Kit See Rx Instructions .Route Qty: 1 0RF Rx Instructions: As directed (DME) OneTouch Ultra Test Strip See Rx Instructions .ROUTE .MEDSUPPLY Qty: 180 6RF Rx Instructions: 6x/day (DME) lancets Misc See Rx Instructions .ROUTE .MEDSUPPLY Qty: 180 6RF Rx Instructions: 4x/day (DME) pen needle, diabetic [BD Ultra-Fine Nan Pen Needle] 32 gauge x 5/32 needle See Rx Instructions .ROUTE .MEDSUPPLY Qty: 150 6RF Rx Instructions: 5x/day Referrals / Follow Up: Saurav Arellano MD [Med Staff - Active Staff] - Within 2 Weeks Aries Hill MD [Primary Care Provider] - Within 1 Week Disposition Disposition (needs filled in before D/C Order can be placed): Home, Self Care 11/28/24 1136 Tahira De MD CC: Dr. Sanchez Mendez DO; Dr. Saurav Arellano MD; Dr. Aries Hill MD Signed Normal [facility] Eosinophil percentageOrdered By: Tahira De on 11-28-2024 Eosinophils/100 WBC (Bld) 4.5 % 0-5 [facility] Erythrocyte distribution wid th ratioOrdered By: Tahira De on 11-28-2024 Erythrocyte distribution width (RBC) [Ratio] 13.0 % 11.6-14.6 [facility] Erythrocyte distribution wid th standard deviationOrdered By: Tahira De on 11-28-2024 Erythrocyte distribution width (RBC) [Entitic vol] 44.9 fL High 35.1-43.9 [facility] Erythrocyte distribution width (RBC) [Ratio] 44.9 fl High 35.1-43.9 [facility] Estimation of creatinine chantal aranceOrdered By: Tahira De on 11-28-2024 Estimated Creatinine Clearance Calc 79.73 ml/min 50-250 [facility] GFR/1.73 sq M.predicted campbell g non-blacks MDRD (S/P/Bld) [Vol rate/Area]Ordered By: Tahira De on 11-28-2024 Estimated GFR (MDRD) Non-Af Amer 79 >60 [facility] Comment on above: mL/min/1.73m2 CKD-EP I Creatinine Equation (2020) Glomerular filtration rate ( GFR) estimation/1.73 sq m using serum, plasma, or whole bOrdered By: Tahira De on 11-28-2024 GFR/1.73 sq M.predicted among non-blacks MDRD (S/P/Bld) [Vol rate/Area] 79 mL/min/{1.73_m2} >60 [facility] Comment on above: mL/min/1.73m2 CKD-EP I Creatinine Equation (2020) Glucose measurement at bedsi deOrdered By: Tahira De on 11-28-2024 Bedside Glucose (Misc Panel) 174 mg/dL High 74-106 [facility] Comment on above: MANAGEMENT OF PATIEN T CARE PER NURSING PROTOCOL Glucose [Mass/Vol] 174 mg/dL High 74-106 [facility] Comment on above: MANAGEMENT OF PATIEN T CARE PER NURSING PROTOCOL Hematocrit Auto (Bld) [Volum e fraction]Ordered By: Tahira De on 11-28-2024 Hematocrit (Bld) [Volume fraction] 35.2 % Low 37-47 [facility] Hemoglobin measurementOrdere d By: Tahira De on 11-28-2024 Hemoglobin (Bld) [Mass/Vol] 11.7 g/dL Low 12.0-15.0 [facility] Immature granulocytes/100 WB C Auto (Bld)Ordered By: Tahira De on 11-28-2024 Immature granulocytes/100 WBC (Bld) 0.400 % 0.0-0.9 [facility] Comment on above: IG% - Immature Granu locytes (promyelocytes, myelocytes and metamyelocytes) > 1% indicates that a LEFT SHIFT is Present. Lymphocytes Auto (Unsp spec) [#/Vol]Ordered By: Tahira De on 11-28-2024 Lymphocytes (Bld) [#/Vol] 1.99 10*3/uL 0.83-4.51 [facility] Lymphocytes/100 WBC Auto (Un sp spec)Ordered By: Tahira De on 11-28-2024 Lymphocytes/100 WBC (Bld) 25.6 % 19-41 [facility] MCV (mean corpuscular volume ) determinationOrdered By: Tahira De on 11-28-2024 MCV (RBC) [Entitic vol] 93.6 fL 81-99 [facility] Mean corpuscular hemoglobin (MCH) determinationOrdered By: Tahira De on 11-28-2024 MCH (RBC) [Entitic mass] 31.1 pg 27.0-32.0 [facility] Mean corpuscular hemoglobin concentration (MCHC) determinationOrdered By: Tahira De on 11-28-2024 MCHC (RBC) [Mass/Vol] 33.2 g/dL 32-36 [facility] Mean platelet volume determi nationOrdered By: Tahira De on 11-28-2024 Platelet mean volume (Bld) [Entitic vol] 9.0 fL 6.2-12.0 [facility] Monocyte percentageOrdered B y: Tahira De on 11-28-2024 Monocytes/100 WBC (Bld) 6.4 % 0-10 [facility] Neutrophil percentageOrdered By: Tahira De on 11-28-2024 Neutrophils/100 WBC (Bld) 62.6 % 47-70 [facility] Nucleated red blood cell per centageOrdered By: Tahira De on 11-28-2024 Nucleated RBC/100 WBC (Bld) [Ratio] 0 % 0-5 [facility] Platelet countOrdered By: Tiffany De on 11-28-2024 Platelets (Bld) [#/Vol] 281 10*3/uL 150-450 [facility] Potassium (Unsp spec) [Mass/ Vol]Ordered By: Tahira De on 11-28-2024 Potassium [Moles/Vol] 4.1 mmol/L 3.3-5.1 [facility] Potassium measurement (mass/ volume)Ordered By: Tahira De on 11-28-2024 Potassium (Unsp spec) [Mass/Vol] 4.1 mmol/L 3.3-5.1 [facility] RBC Auto (Bld) [#/Vol]Ordere d By: Tahira De on 11-28-2024 RBC (Bld) [#/Vol] 3.76 10*6/uL Low 4.2-5.4 [facility] Serum creatinine measurement (mass/volume)Ordered By: Tahira De on 11-28-2024 Creatinine [Mass/Vol] 0.79 mg/dL 0.70-1.20 [facility] Serum glucose measurement (m ass/volume)Ordered By: Tahira De on 11-28-2024 Glucose [Mass/Vol] 166 mg/dL High 70-99 [facility] Serum or plasma calcium diane urement (mass/volume)Ordered By: Tahira De on 11-28-2024 Calcium [Mass/Vol] 9.2 mg/dL 7.6-11.0 [facility] Serum or plasma urea nitroge n measurement (mass/volume)Ordered By: Tahira De on 11-28-2024 Urea nitrogen [Mass/Vol] 13 mg/dL 4-19 [facility] Sodium levelOrdered By: Tahira De on 11-28-2024 Sodium [Moles/Vol] 141 mmol/L 133-145 [facility] White blood cell (WBC) count Ordered By: Tahira De on 11-28-2024 WBC (Bld) [#/Vol] 7.8 10*3/uL 4.4-11.0 [facility] Bilirubin, totalOrdered By: Saurav Arellano on 11-27-2024 Bilirubin [Mass/Vol] 0.18 mg/dL 0.00-1.[address] [facility] CBC W/Diff, Automatedon Absolute Lymph 2.02 X10 3/uL Normal 0.83-4.51 [facility] Comment on above: Performed By: #### L 300.3900, L100.0100, L501.5200, L300.4310, L501.4021, L500.2500 #### [facility] [address] [place], [address] Absolute Neut 6.8 X10 3/uL Normal 2.0-7.7 [facility] Comment on above: Performed By: #### L 300.3900, L100.0100, L501.5200, L300.4310, L501.4021, L500.2500 #### [facility] [address] [place], [address] Basophils/100 WBC (Bld) 0.3 % Normal 0-1 [facility] Comment on above: Performed By: #### L 300.3900, L100.0100, L501.5200, L300.4310, L501.4021, L500.2500 #### [facility] [address] [place], [address] Eosinophils/100 WBC (Bld) 2.2 % Normal 0-5 [facility] Comment on above: Performed By: #### L 300.3900, L100.0100, L501.5200, L300.4310, L501.4021, L500.2500 #### [facility] [address] [place], [address] Erythrocyte distribution width (RBC) [Ratio] 13.1 % Normal 11.6-14.6 [facility] Comment on above: Performed By: #### L 300.3900, L100.0100, L501.5200, L300.4310, L501.4021, L500.2500 #### [facility] [address] [place], [address] Hematocrit (Bld) [Volume fraction] 33.9 % Low 37-47 [facility] Comment on above: Performed By: #### L 300.3900, L100.0100, L501.5200, L300.4310, L501.4021, L500.2500 #### [facility] [address] [place], [address] Hemoglobin (Bld) [Mass/Vol] 11.4 g/dL Low 12.0-15.0 [facility] Comment on above: Performed By: #### L 300.3900, L100.0100, L501.5200, L300.4310, L501.4021, L500.2500 #### [facility] [address] [place], [address] IG% 0.400 Normal 0.0-0.9 [facility] Comment on above: Result Comment: IG% - Immature Granulocytes (promyelocytes, myelocytes and metamyelocytes) > 1% indicates that a LEFT SHIFT is Present. Performed By: #### L 300.3900, L100.0100, L501.5200, L300.4310, L501.4021, L500.2500 #### [facility] [address] [place], [address] Lymphocytes/100 WBC (Bld) 20.7 % Normal 19-41 [facility] Comment on above: Performed By: #### L 300.3900, L100.0100, L501.5200, L300.4310, L501.4021, L500.2500 #### [facility] [address] [place], [address] MCH (RBC) [Entitic mass] 30.9 pg Normal 27.0-32.0 [facility] Comment on above: Performed By: #### L 300.3900, L100.0100, L501.5200, L300.4310, L501.4021, L500.2500 #### [facility] [address] [place], [address] MCHC (RBC) [Mass/Vol] 33.6 g/dL Normal 32-36 [facility] Comment on above: Performed By: #### L 300.3900, L100.0100, L501.5200, L300.4310, L501.4021, L500.2500 #### [facility] [address] [place], [address] MCV (RBC) [Entitic vol] 91.9 fL Normal 81-99 [facility] Comment on above: Performed By: #### L 300.3900, L100.0100, L501.5200, L300.4310, L501.4021, L500.2500 #### [facility] [address] [place], [address] Monocytes/100 WBC (Bld) 6.5 % Normal 0-10 [facility] Comment on above: Performed By: #### L 300.3900, L100.0100, L501.5200, L300.4310, L501.4021, L500.2500 #### [facility] [address] [place], [address] Neutrophils/100 WBC (Bld) 69.9 % Normal 47-70 [facility] Comment on above: Performed By: #### L 300.3900, L100.0100, L501.5200, L300.4310, L501.4021, L500.2500 #### [facility] [address] [place], [address] Nucleated RBC (Bld) [#/Vol] 0 10*3/uL Normal 0-5 [facility] Comment on above: Performed By: #### L 300.3900, L100.0100, L501.5200, L300.4310, L501.4021, L500.2500 #### [facility] [address] [place], [address] Platelet mean volume (Bld) [Entitic vol] 8.8 fL Normal 6.2-12.0 [facility] Comment on above: Performed By: #### L 300.3900, L100.0100, L501.5200, L300.4310, L501.4021, L500.2500 #### [facility] [address] [place], [address] Platelets (Bld) [#/Vol] 258 10*3/uL Normal 150-450 [facility] Comment on above: Performed By: #### L 300.3900, L100.0100, L501.5200, L300.4310, L501.4021, L500.2500 #### [facility] [address] [place], [address] RBC (Bld) [#/Vol] 3.69 10*6/uL Low 4.2-5.4 [facility] Comment on above: Performed By: #### L 300.3900, L100.0100, L501.5200, L300.4310, L501.4021, L500.2500 #### [facility] [address] [place], [address] RDW SD 44.5 fl High 35.1-43.9 [facility] Comment on above: Performed By: #### L 300.3900, L100.0100, L501.5200, L300.4310, L501.4021, L500.2500 #### [facility] [address] [place], [address] WBC (Bld) [#/Vol] 9.8 10*3/uL Normal 4.4-11.0 [facility] Comment on above: Performed By: #### L 300.3900, L100.0100, L501.5200, L300.4310, L501.4021, L500.2500 #### [facility] [address] [place], [address] Calculated very low density lipoprotein (VLDL) cholesterol measurementOrdered By: Saurav Arellano on 11-27-2024 Calculated very low density lipoprotein (VLDL) cholesterol measurement 27 mg/dL - [facility] VLDL Cholesterol 27 mg/dL -40 [facility] Comprehensive Metabolic Prof ilon 11-27-2024 Albumin [Mass/Vol] 3.2 g/dL Low 3.4-4.8 [facility] Comment on above: Performed By: #### L 300.3900, L100.0100, L501.5200, L300.4310, L501.4021, L500.2500 #### [facility] [address] [place], [address] Albumin/Globulin [Mass ratio] 1.1 {ratio} Normal 0.9-2.4 [facility] Comment on above: Performed By: #### L 300.3900, L100.0100, L501.5200, L300.4310, L501.4021, L500.2500 #### [facility] [address] [place], [address] Chloride [Moles/Vol] 108 mmol/L Normal 98-[address] [facility] Comment on above: Performed By: #### L 300.3900, L100.0100, L501.5200, L300.4310, L501.4021, L500.2500 #### [facility] [address] [place], [address] GAP 13 Normal 5-15 [facility] Comment on above: Performed By: #### L 300.3900, L100.0100, L501.5200, L300.4310, L501.4021, L500.2500 #### [facility] [address] [place], [address] Globulin (S) [Mass/Vol] 2.8 g/dL Normal 2.2-4.2 [facility] Comment on above: Performed By: #### L 300.3900, L100.0100, L501.5200, L300.4310, L501.4021, L500.2500 #### [facility] [address] [place], [address] Potassium [Moles/Vol] 3.8 mmol/L Normal 3.3-5.1 [facility] Comment on above: Performed By: #### L 300.3900, L100.0100, L501.5200, L300.4310, L501.4021, L500.2500 #### [facility] [address] [place], [address] Sodium [Moles/Vol] 140 mmol/L Normal 133-145 [facility] Comment on above: Performed By: #### L 300.3900, L100.0100, L501.5200, L300.4310, L501.4021, L500.2500 #### [facility] [address] [place], [address] Hemoglobin A1con 11-27-2024 HbA1c (Bld) [Mass fraction] 6.8 % Normal <=5.6 [facility] Comment on above: Performed By: #### L 300.3900, L100.0100, L501.5200, L300.4310, L501.4021, L500.2500 #### [facility] [address] [place], [address] Hemoglobin A1c percentageOrd ered By: Tahira De on 11-27-2024 HbA1c (Bld) [Mass fraction] 6.8 % >5.7 [facility] LDL calc ser/plasOrdered By: Saurav Arellano on 11-27-2024 Cholesterol in LDL [Mass/Vol] 59 mg/dL [facility] Comment on above: Spctumjvlx=168-799 m g/dL & Higher Aclg=211 mg/dL or greater LDL Cholesterol, Calculated 59 mg/dL [facility] Comment on above: Wqbwevwbvw=808-837 m g/dL & Higher Mueg=641 mg/dL or greater Laboratory - Chemistry and C hemistry - challengeOrdered By: Saurav Arellano on 11-27-2024 AST [Catalytic activity/Vol] 25 U/L <32 [facility] Lipid Profileon 11-27-2024 CHOL:HDL 3.03 Normal [facility] Comment on above: Performed By: #### L 300.3900, L100.0100, L501.5200, L300.4310, L501.4021, L500.2500 #### [facility] [address] [place], [address] Cholesterol [Mass/Vol] 128 mg/dL Normal <=200 [facility] Comment on above: Result Comment: Chol esterol level, Desirable <200 mg/dL Borderline high cholesterol 200-239 mg/dL High cholesterol >=240 mg/dL Recommendations of the NCEP Adult Treatment Panel for the following risk-cutoff thresholds for the [place] population. Performed By: #### L 300.3900, L100.0100, L501.5200, L300.4310, L501.4021, L500.2500 #### [facility] [address] [place], [address] Cholesterol in HDL [Mass/Vol] 42 mg/dL Normal [facility] Comment on above: Result Comment: Marta onal Cholesterol Education Program (NCEP) guidelines: <40 mg/dL: Low HDL-cholesterol (major risk factor for CHD) >= 60 mg/dL: High HDL-cholesterol (negative risk factor for CHD) HDL-cholesterol is affected by a number of factors, e.g. smoking, exercise, hormones, sex and age. Performed By: #### L 300.3900, L100.0100, L501.5200, L300.4310, L501.4021, L500.2500 #### [facility] [address] [place], [address] Cholesterol in LDL [Mass/Vol] 59 mg/dL Normal [facility] Comment on above: Result Comment: Bord dwczjd=699-807 mg/dL Higher Bxak=228 mg/dL or greater Performed By: #### L 300.3900, L100.0100, L501.5200, L300.4310, L501.4021, L500.2500 #### [facility] [address] [place], [address] Cholesterol in VLDL [Mass/Vol] 27 mg/dL Normal 5-40 [facility] Comment on above: Performed By: #### L 300.3900, L100.0100, L501.5200, L300.4310, L501.4021, L500.2500 #### [facility] [address] [place], [address] Triglyceride [Mass/Vol] 134 mg/dL Normal [facility] Comment on above: Result Comment: The drugs N-Acetylcysteine and Metamizole may falsely depress this assay. Normal range: <150 mg/dL Borderline High: 150-199 mg/dL High: 200-499 mg/dL Very High: >500 mg/dL Performed By: #### L 300.3900, L100.0100, L501.5200, L300.4310, L501.4021, L500.2500 #### [facility] [address] [place], [address] Screening total cholesterol/ high density lipoprotein (HDL) cholesterol ratioOrdered By: Saurav Arellano on 11-27-2024 Cholesterol.total/Chol esterol in HDL [Mass ratio] 3.03 {ratio} [facility] Serum globulin measurementOr dered By: Saurav Arellano on 11-27-2024 Globulin (S) [Mass/Vol] 2.8 g/dL 2.2-4.2 [facility] Serum or plasma alanine brown otransferase (ALT) measurementOrdered By: Saurav Arellano on 11-27-2024 ALT [Catalytic activity/Vol] 24 U/L <35 [facility] Serum or plasma albumin diane urement (mass/volume)Ordered By: Saurav Arellano on 11-27-2024 Albumin [Mass/Vol] 3.2 g/dL Low 3.4-4.8 [facility] Serum or plasma albumin/glob ulin mass ratioOrdered By: Saurva Arellano on 11-27-2024 Albumin/Globulin [Mass ratio] 1.1 {ratio} 0.9-2.4 [facility] Serum or plasma alkaline deanne sphatase measurementOrdered By: Saurav Arellano on 11-27-2024 ALP [Catalytic activity/Vol] 103 U/L 35-104 [facility] Serum or plasma cholesterol in HDL measurement (mass/volume)Ordered By: Saurav rAellano on 11-27-2024 Cholesterol in HDL [Mass/Vol] 42 mg/dL >40 [facility] Comment on above: National Cholesterol Education Program (NCEP) guidelines:<40 mg/dL: Low HDL-cholesterol (major risk factor for CHD)>= 60 mg/dL: High HDL-cholesterol (negative risk factor for CHD)HDL-cholesterol is affected by a number of factors, e.g. smoking, exercise, hormones, sex and age. Serum or plasma cholesterol measurement (mass/volume)Ordered By: Saurav Arellano on 11-27-2024 Cholesterol [Mass/Vol] 128 mg/dL <201 [facility] Comment on above: Cholesterol level, D esirable <200 mg/dLBorderline high cholesterol 200-239 mg/dLHigh cholesterol >=240 mg/dLRecommendations of the NCEP Adult Treatment Panel for the following risk-cutoff thresholds for the [place] population. Total proteinOrdered By: Primitivo Arellano on 11-27-2024 Protein [Mass/Vol] 6.0 g/dL 5.9-8.4 [facility] Triglycerides measurementOrd ered By: Saurav Arellano on 11-27-2024 Triglyceride [Mass/Vol] 134 mg/dL <199 [facility] Comment on above: The drugs N-Acetylcy steine and Metamizole may falsely depress this assay. Normal range: <150 mg/dLBorderline High: 150-199 mg/dLHigh: 200-499 mg/dLVery High: >500 mg/dL ACT Activated Clotting Timeo n 11-26-2024 ACTk CLOT TIME 262 sec High 74-137 [facility] Comment on above: Performed By: #### L 300.3900, L100.0100, L501.5200, L300.4310, L501.4021, L500.2500 #### [facility] [address] [place], [address] ACTk CLOT TIME 170 sec High 74-137 [facility] Comment on above: Performed By: #### L 300.3900, L100.0100, L501.5200, L300.4310, L501.4021, L500.2500 #### [facility] [address] [place], [address] ACTk CLOT TIME 158 sec High 74-137 [facility] Comment on above: Performed By: #### L 300.3900, L100.0100, L501.5200, L300.4310, L501.4021, L500.2500 #### [facility] [address] [place], [address] Absolute neutrophil countOrd ered By: Matt Jose on 11-26-2024 Neutrophils (Bld) [#/Vol] 5.6 10*3/uL 2.0-7.7 [facility] Activated clotting timeOrder ed By: Sanchez Mendez on 11-26-2024 Activated Clotting Time 262 sec High 74-137 [facility] Activated partial thrombopla stin time (aPTT) in platelet poor plasma by coagulation aOrdered By: Matt Jose on 11-26-2024 aPTT Coag (PPP) [Time] 25.8 s 24.1-36.2 [facility] Basic Metabolic Profile (BMP )on 11-26-2024 BUN/CRE 14.3 RATIO Normal 10-20 [facility] Comment on above: Performed By: #### L 300.3900, L100.0100, L501.5200, L300.4310, L501.4021, L500.2500 #### [facility] [address] [place], [address] Calcium [Mass/Vol] 9.4 mg/dL Normal 7.6-11.0 [facility] Comment on above: Performed By: #### L 300.3900, L100.0100, L501.5200, L300.4310, L501.4021, L500.2500 #### [facility] [address] [place], [address] Chloride [Moles/Vol] 107 mmol/L Normal 98-[address] [facility] Comment on above: Performed By: #### L 300.3900, L100.0100, L501.5200, L300.4310, L501.4021, L500.2500 #### [facility] [address] [place], [address] CO2 [Moles/Vol] 19.0 mmol/L Low 21.0-32.0 [facility] Comment on above: Performed By: #### L 300.3900, L100.0100, L501.5200, L300.4310, L501.4021, L500.2500 #### [facility] [address] [place], [address] Creatinine [Mass/Vol] 0.88 mg/dL Normal 0.70-1.20 [facility] Comment on above: Performed By: #### L 300.3900, L100.0100, L501.5200, L300.4310, L501.4021, L500.2500 #### [facility] [address] [place], [address] ECRCL 72.16 ml/min Normal 50-250 [facility] Comment on above: Performed By: #### L 300.3900, L100.0100, L501.5200, L300.4310, L501.4021, L500.2500 #### [facility] [address] [place], [address] GAP 13 Normal 5-15 [facility] Comment on above: Performed By: #### L 300.3900, L100.0100, L501.5200, L300.4310, L501.4021, L500.2500 #### [facility] [address] [place], [address] GFR/1.73 sq M.predicted among non-blacks MDRD (S/P/Bld) [Vol rate/Area] 69 mL/min/{1.73_m2} Normal >60 [facility] Comment on above: Result Comment: mL/m in/1.73m2 CKD-EPI Creatinine Equation (2020) Performed By: #### L 300.3900, L100.0100, L501.5200, L300.4310, L501.4021, L500.2500 #### [facility] [address] [place], [address] Glucose [Mass/Vol] 180 mg/dL High 70-99 [facility] Comment on above: Performed By: #### L 300.3900, L100.0100, L501.5200, L300.4310, L501.4021, L500.2500 #### [facility] [address] [place], [address] Potassium [Moles/Vol] 4.1 mmol/L Normal 3.3-5.1 [facility] Comment on above: Performed By: #### L 300.3900, L100.0100, L501.5200, L300.4310, L501.4021, L500.2500 #### [facility] [address] [place], [address] Sodium [Moles/Vol] 138 mmol/L Normal 133-145 [facility] Comment on above: Performed By: #### L 300.3900, L100.0100, L501.5200, L300.4310, L501.4021, L500.2500 #### [facility] [address] [place], [address] Urea nitrogen [Mass/Vol] 13 mg/dL Normal 4-19 [facility] Comment on above: Performed By: #### L 300.3900, L100.0100, L501.5200, L300.4310, L501.4021, L500.2500 #### [facility] [address] [place], [address] Basophil percentageOrdered B y: Matt Rebeca on 11-26-2024 Basophils/100 WBC (Bld) 0.4 % 0-1 [facility] Bedside Glucoseon 11-26-2024 FINGERSTICK GLU 152 mg/dL High 74-106 [facility] Comment on above: Result Comment: RAI JOHNSON OF PATIENT CARE PER NURSING PROTOCOL Performed By: #### L 501.080 #### [facility] [address] [place], [address] CBC W/Diff, Automatedon Absolute Lymph 2.79 X10 3/uL Normal 0.83-4.51 [facility] Comment on above: Performed By: #### L 300.3900, L100.0100, L501.5200, L300.4310, L501.4021, L500.2500 #### [facility] [address] [place], [address] Absolute Neut 5.6 X10 3/uL Normal 2.0-7.7 [facility] Comment on above: Performed By: #### L 300.3900, L100.0100, L501.5200, L300.4310, L501.4021, L500.2500 #### [facility] [address] [place], [address] Basophils/100 WBC (Bld) 0.4 % Normal 0-1 [facility] Comment on above: Performed By: #### L 300.3900, L100.0100, L501.5200, L300.4310, L501.4021, L500.2500 #### [facility] [address] [place], [address] Eosinophils/100 WBC (Bld) 3.1 % Normal 0-5 [facility] Comment on above: Performed By: #### L 300.3900, L100.0100, L501.5200, L300.4310, L501.4021, L500.2500 #### [facility] [address] [place], [address] Erythrocyte distribution width (RBC) [Ratio] 13.0 % Normal 11.6-14.6 [facility] Comment on above: Performed By: #### L 300.3900, L100.0100, L501.5200, L300.4310, L501.4021, L500.2500 #### [facility] [address] [place], [address] Hematocrit (Bld) [Volume fraction] 39.4 % Normal 37-47 [facility] Comment on above: Performed By: #### L 300.3900, L100.0100, L501.5200, L300.4310, L501.4021, L500.2500 #### [facility] [address] [place], [address] Hemoglobin (Bld) [Mass/Vol] 13.1 g/dL Normal 12.0-15.0 [facility] Comment on above: Performed By: #### L 300.3900, L100.0100, L501.5200, L300.4310, L501.4021, L500.2500 #### [facility] [address] [place], [address] IG% 0.600 Normal 0.0-0.9 [facility] Comment on above: Result Comment: IG% - Immature Granulocytes (promyelocytes, myelocytes and metamyelocytes) > 1% indicates that a LEFT SHIFT is Present. Performed By: #### L 300.3900, L100.0100, L501.5200, L300.4310, L501.4021, L500.2500 #### [facility] [address] [place], [address] Lymphocytes/100 WBC (Bld) 30.1 % Normal 19-41 [facility] Comment on above: Performed By: #### L 300.3900, L100.0100, L501.5200, L300.4310, L501.4021, L500.2500 #### [facility] [address] [place], [address] MCH (RBC) [Entitic mass] 31.2 pg Normal 27.0-32.0 [facility] Comment on above: Performed By: #### L 300.3900, L100.0100, L501.5200, L300.4310, L501.4021, L500.2500 #### [facility] [address] [place], [address] MCHC (RBC) [Mass/Vol] 33.2 g/dL Normal 32-36 [facility] Comment on above: Performed By: #### L 300.3900, L100.0100, L501.5200, L300.4310, L501.4021, L500.2500 #### [facility] [address] [place], [address] MCV (RBC) [Entitic vol] 93.8 fL Normal 81-99 [facility] Comment on above: Performed By: #### L 300.3900, L100.0100, L501.5200, L300.4310, L501.4021, L500.2500 #### [facility] [address] [place], [address] Monocytes/100 WBC (Bld) 5.9 % Normal 0-10 [facility] Comment on above: Performed By: #### L 300.3900, L100.0100, L501.5200, L300.4310, L501.4021, L500.2500 #### [facility] [address] [place], [address] Neutrophils/100 WBC (Bld) 59.9 % Normal 47-70 [facility] Comment on above: Performed By: #### L 300.3900, L100.0100, L501.5200, L300.4310, L501.4021, L500.2500 #### [facility] [address] [place], [address] Nucleated RBC (Bld) [#/Vol] 0 10*3/uL Normal 0-5 [facility] Comment on above: Performed By: #### L 300.3900, L100.0100, L501.5200, L300.4310, L501.4021, L500.2500 #### [facility] [address] [place], [address] Platelet mean volume (Bld) [Entitic vol] 8.9 fL Normal 6.2-12.0 [facility] Comment on above: Performed By: #### L 300.3900, L100.0100, L501.5200, L300.4310, L501.4021, L500.2500 #### [facility] [address] [place], [address] Platelets (Bld) [#/Vol] 285 10*3/uL Normal 150-450 [facility] Comment on above: Performed By: #### L 300.3900, L100.0100, L501.5200, L300.4310, L501.4021, L500.2500 #### [facility] [address] [place], [address] RBC (Bld) [#/Vol] 4.20 10*6/uL Normal 4.2-5.4 [facility] Comment on above: Performed By: #### L 300.3900, L100.0100, L501.5200, L300.4310, L501.4021, L500.2500 #### [facility] [address] [place], [address] RDW SD 44.4 fl High 35.1-43.9 [facility] Comment on above: Performed By: #### L 300.3900, L100.0100, L501.5200, L300.4310, L501.4021, L500.2500 #### [facility] [address] [place], [address] WBC (Bld) [#/Vol] 9.3 10*3/uL Normal 4.4-11.0 [facility] Comment on above: Performed By: #### L 300.3900, L100.0100, L501.5200, L300.4310, L501.4021, L500.2500 #### [facility] [address] [place], [address] Cardiac Cath Interventionon 11-26-2024 [address] Intervention [facility] Imaging Services [address] [place] [address] Cardiac Cath Intervention MR#: [id number] Acct: [id number] Name: TRISTEN GOMEZ Rep #: [id number] : 1950 74 From: Saurav Arellano MD PCP: Dr. Aries Hill MD Status:[facility] Patient Name: TRISTEN GOMEZ Study Date: 11/26/2024 Performing: Saurav Arellano MD Ht: 66 inches 167.64 cm : 1950 Wt: 253.09 lbs 114.8 kg Age: 74 Gender: female BSA: 2.21 PROCEDURE(S) PERFORMED DC02-(16940)C/COR IC16-(48156/C9606)AMI, SAGE OR PTCA, ARTERY/GRAFT, SINGLE VESSEL CLINICAL PROFILE AND CO-MORBIDITIES Indications: ACS <= 24 hrs Heart Failure: None Stress/Imaging Stress/Image Study Performed: No CAD Presentations: STEMI. Symptom onset Date/Time: 11/26/2024 11:50:00 Time Estimated CONCLUSIONS 95% Prox LAD with thrombus Successful PTCA/SAGE Prox LAD using [place] 3.0x15 mm RECOMMENDATIONS ASA Indefinitley P2Y12 inhibitors for atleast 6 months DESCRIPTION OF PROCEDURE The patient arrived to the procedure lab. The risks and benefits of the procedure as well as a full description of our services here and lack of surgical backup were fully explained to the patient and/or their significant other prior to the catheterization. The Timeout was completed, verifying the correct patient and procedure. The patient's procedural site was prepped and draped in the usual fashion. Local anesthetic was given subcutaneously to right radial region with Lidocaine 2%. Using a modified Seldinger technique, arterial access was obtained via the right radial artery, a 6Fr sheath was inserted.. Right Coronary Artery selective angiography was then performed in multiple views using a 5 Fr. JR 4 catheter. Right Coronary Artery selective angiography was then performed in multiple views using a 5 Fr. 3DRC (Fermín) catheter XB 3.0 Guide catheter was inserted and engaged into the LCA. runthrough Guide wire was advanced to the LAD. Emerge 2.50x12 Balloon catheter was inserted. PTCA balloon inflated at 6 atms for 11 secs. Angiogram performed post balloon dilatation. [place] 3.0x15 Drug Eluting stent was inserted. Angiogram performed post stent deployment. NC Emerge 3.00x12 Balloon catheter was inserted. Angiogram performed post balloon dilatation. The arterial sheath was pulled and a TR Band was applied for hemostasis w/ 13ml air CORONARY ANGIOGRAPHY DOMINANCE: Right Dominant LEFT HEART ASSESSMENT Left Ventricular Ejection Fraction: Not assessed LEFT MAIN: Angiographically normal LEFT ANTERIOR DESCENDING ARTERY: LAD: Thrombus 95% Proximal lesion in LAD CIRCUMFLEX ARTERY: Angiographically normal RIGHT CORONARY ARTERY: Angiographically normal INTERVENTION INFORMATION LESION SITE: LAD (Proximal) Lesion Complexity: High/C, thrombus present: Yes, lesion length: 13 mm Pre Stenosis: 95 % Pre intervention TALITA flow: 3 PROCEDURE: Drug Eluting Stent with pre and post dilatation Post Stenosis: 0 % Post intervention TALITA flow: 3 Lesion Devices: Cordis 6 Fr XB3.0 100cm Guide Catheter Terumo .014 180cm Runthrough Extra Floppy straight Adrien Sci EMERGE MR 2.50x12 BALLOON Medtronic 3.0 x 15 ROB FRONTIER SAGE Adrien Sci NC EMERGE MR 3.00x12 BALLOON COMPLICATIONS No Complications PROCEDURE MEDICATIONS Fentanyl 50 mcg IV Versed 2 mg IV Oxygen: 2 L/min via nasal cannula Heparin 4000 unit(s) IV 11/26/2024 13:06:30 Heparin 7000 unit(s) IV 11/26/2024 13:49:49 Nitro 200 mcg IC 11/26/2024 13:18:21 Nitro 200 mcg IA 11/26/2024 13:47:55 Verapamil 2.5mg, Ntg 200mcgs, given IA 11/26/2024 13:03:50 SUMMARY OF HEMODYNAMIC DATA Time AIR REST ECG 12:58:16 AO 140/78 (99) SA 13:07:07 AO 156/78 (112) 13:37:16 AO 99/66 (81) 13:47:28 14:08:05 Signed By Saurav Arellano MD On 11/26/2024 14:25:20 Saurav Arellano MD 11/26/24 1426 Date [facility]av [facility]relalno [facility] Signature: Date (if indicated) CC: Dr. Sanchez Mendez DO; Dr. Saurav Arellano MD; Dr. Aries Hill MD Date Dictated: 11/26/24 1302 Date Transcribed: 11/26/24 1425 Back Padder: LYNDA Signed Normal [facility] Cardiac catheterization repo rtOrdered By: Saurav Arellano on 11-26-2024 Cardiac catheterization study [facility] Imaging Services [address] [place] [address] Cardiac Cath Intervention MR#: [id number] Acct: [id number] Name: TRISTEN GOMEZ Rep #:[id number] : 1950 74 From: Saurav Arellano MD PCP: Dr. Aries Hill MD Status:R EG [facility] Patient Name: TRISTEN GOMEZ Study Date: 11/26/2024 Performing: Saurav Arellano MD Ht: 66 inches 167.64 cm : 1950 Wt: 253.09 lbs 114.8 kg Age: 74 Gender: female BSA: 2.21 PROCEDURE(S) PERFORMED DC02-(59761)[facility]/COR IC16-(62759/C9606)AMI, SAGE OR PTCA, ARTERY/GRAFT, SINGLE VESSEL CLINICAL PROFILE AND CO-MORBIDITIES Indications: ACS <= 24 hrs Heart Failure: None Stress/Imaging Stress/Image Study Performed: No CAD Presentations: STEMI. Symptom onset Date/Time: 11/26/2024 11:50:00 Time Estimated CONCLUSIONS 95% Prox LAD with thrombus Successful PTCA/SAGE Prox LAD using [place] 3.0x15 mm RECOMMENDATIONS ASA Indefinitley P2Y12 inhibitors for atleast 6 months DESCRIPTION OF PROCEDURE The patient arrived to the procedure lab. The risks and benefits of the procedure as well as a full description of our services here and lack of surgical backup were fully explained to the patient and/or their significant other prior to the catheterization. The Timeout was completed, verifying the correct patient and procedure. The patient's procedural site was prepped and draped in the usual fashion. Local anesthetic was given subcutaneously to right radial region with Lidocaine 2%. Using a modified Seldinger technique, arterial access was obtained via the right radial artery, a 6Fr sheath was inserted.. Right Coronary Artery selective angiography was then performed in multiple views using a 5 Fr. JR 4 catheter. Right Coronary Artery selective angiography was then performed in multiple views using a 5 Fr. 3DRC (Fermín) catheter XB 3.0 Guide catheter was inserted and engaged into the LCA. runthrough Guide wire was advanced to the LAD. Emerge 2.50x12 Balloon catheter was inserted. PTCA balloon inflated at 6 atms for 11 secs. Angiogram performed post balloon dilatation. [place] 3.0x15 Drug Eluting stent was inserted. Angiogram performed post stent deployment. NC Emerge 3.00x12 Balloon catheter was inserted. Angiogram performed post balloon dilatation. The arterial sheath was pulled and a TR Band was applied for hemostasis w/ 13ml air CORONARY ANGIOGRAPHY DOMINANCE: Right Dominant LEFT HEART ASSESSMENT Left Ventricular Ejection Fraction: Not assessed LEFT MAIN: Angiographically normal LEFT ANTERIOR DESCENDING ARTERY: LAD: Thrombus 95% Proximal lesion in LAD CIRCUMFLEX ARTERY: Angiographically normal RIGHT CORONARY ARTERY: Angiographically normal INTERVENTION INFORMATION LESION SITE: LAD (Proximal) Lesion Complexity: High/C, thrombus present: Yes, lesion length: 13 mm Pre Stenosis: 95 % Pre intervention TALITA flow: 3 PROCEDURE: Drug Eluting Stent with pre and post dilatation Post Stenosis: 0 % Post intervention TALITA flow: 3 Lesion Devices: Cordis 6 Fr XB3.0 100cm Guide Catheter Terumo .014 180cm Runthrough Extra Floppy straight Adrien Sci EMERGE MR 2.50x12 BALLOON Medtronic 3.0 x 15 ROB FRONTIER SAGE Adrien Sci NC EMERGE MR 3.00x12 BALLOON COMPLICATIONS No Complications PROCEDURE MEDICATIONS Fentanyl 50 mcg IV Versed 2 mg IV Oxygen: 2 L/min via nasal cannula Heparin 4000 unit(s) IV 11/26/2024 13:06:30 Heparin 7000 unit(s) IV 11/26/2024 13:49:49 Nitro 200 mcg IC 11/26/2024 13:18:21 Nitro 200 mcg IA 11/26/2024 13:47:55 Verapamil 2.5mg, Ntg 200mcgs, given IA 11/26/2024 13:03:50 SUMMARY OF HEMODYNAMIC DATA Time AIR REST ECG 12:58:16 AO 140/78 (99) SA 13:07:07 AO 156/78 (112) 13:37:16 AO 99/66 (81) 13:47:28 14:08:05 Signed By Saurav Arellano MD On 11/26/2024 14:25:20 Saurav Arellano MD 11/26/24 1426 Date _ Saurav Mccoyignpili Signature: Date (if indicated) CC: Dr. Sanchez Mendez DO; Dr. Saurav Arellano MD; Dr. Aries Hill MD~ Date Dictated: 11/26/24 1302 Date Transcribed: 11/26/24 142 Back Padder: LYNDA Cao [facility] Work Phone: Cardiac rehabilitation repor tOrdered By: Magalys Bartlett on 11-26-[address] [facility] Cardiac Rehab [address] [place] [address] CR: Phase I Assessment MR#: [id number] Acct: [id number] Name: TRISTEN GOMEZ Rep #:[id number] : 1950 74 From: Magalys rosado PCP: Dr. Aries Hill MD DOS: Patient Communication Patient Information Former Patient:: Phase I PHII Cardiac Rehab Discussed with Patient:: Yes Guide to Cardiac Rehab Given to Patient:: Yes Cardiac Rehab Facility Choice List Given to Patient:: Yes Communication to Cardiac Rehab Choice Program [facility] CR PHII:: Communication Given to CR Traffic Survey Technician:: Saurav Arellano Sessions:: 36 sessions - 2 days/wk, 18 weeks Medical/Surgical History Medical History AR:: Yes Angina:: Yes CAD:: Yes Congestive Heart Failure: Cardiomyopathy:: No Valve Disease/Replacement:: No Pulmonary:: No COPD:: No Asthma:: No CLEMENTE:: No Diabetes:: Yes Diabetes Type I:: No Diabetes Type II:: Yes Hypertension:: Yes Dyslipidemia:: No Arrhythmias:: No EPS:: No CVA/TIA: CEA:: No PE:: No DVT:: No PVD:: No PAD:: No Arthritis:: No GI:: No GERD:: No Cancer:: No Renal:: No Thyroid:: No Depression:: No Anxiety:: No Surgical History CABG: No PTCA:: Yes ICD:: No Pacemaker:: No Orthopedic:: No Cardiac Rehabilitation Info Program Information Cardiac Rehabilitation Program Information: Cardiac Rehab The cardiac rehab team at [facility] consists of highly skilled exercise physiologists, nurses, respiratory therapists and physicians working together with you. Our purpose is to help you have a full recovery and achieve the goals you set for yourself. Over the years many of our patients have returned to activities they assumed they would never do again! We can help restore your confidence and motivation to make lifestyle changes that can have a significant impact on your health and quality of life! We can help answer questions and concerns you may have about exercise, lifestyle, medications, diet, stress and anxiety which are common following a hospitalization. WE monitor ECG and vital signs during exercise and discuss your progress with you and report toyour physician(s). Cardiac Rehab is proven to help reduce readmissions, improve functional capacityand lower recurrence of problems with your heart. Our Cardiac Rehab program is Certified by the [place] [employer]io-Vascular and Pulmonary [employer] (AACVPR) and Accredited by the [place] [employer] through our [facility]. You can contact us at . We invite you to call us with your questions or to get started in our program. If you have other questions or concerns be sure to ask your physician/provider during your follow-up visit. WE look forward to seeing you! 11/26/24 1512 Date Magalys Bartlett Outcome assessment reviewed. Exercise plan approved as documented. Treatment plan and goals support patient needs/abilities. Continue with current plan. I certify the patient demonstrates improvement and remains willing and capable of participation. the patient continues to benefit from cardiac rehab services/training. The patient may continue at current intensity, endurance andmodality and progress per protocol. Cosigner Signature: Date CC: ~ Signed [facility] Consultation - Cardiologyon 11-26-2024 Consultation - Cardiology [facility] Medical Records Department [address] [place] [address] Consultation - Cardiology 11/26/24 1435 MR#: [id number] Acct: [id number] Name: TRISTEN GOMEZ Rep #: [id number] : 1950 74 From: Saurav Arellano MD PCP: Dr. Aries Hill MD Status:REG [facility] Location: ICU ICU07-1 Assessment Plan Assessment/Plan (1) ST elevation (STEMI) myocardial infarction involving left anterior descending coronary artery: PLAN: After taking informed consent, patient was taken emergently to the cardiac catheterization lab. Coronary angiography revealed 95% proximal LAD with thrombus burden. Successful percutaneous intervention was done with balloon angioplasty and placement of a 3.0 x 15 mm drug-eluting stent. Excellent results were noted. Continue aspirin lifelong. P2 Y12 treatment for at least 6 months. Risk factor modification. Beta-blockers. Angiotensin receptor blockers. Statins. Check echocardiogram. (2) Coronary artery disease: PLAN: See #1 above. (3) Hypertension: QUALIFIERS: Hypertension type: unspecified Qualified Code(s): I10 - Essential (primary) hypertension PLAN: Beta-blockers and ARB's. HPI Consult Data Date of Consult: 11/26/24 HPI Narrative Reason for Consultation: STEMI HPI Narrative: This patient has past medical history significant for diabetes mellitus and hypertension. She presented to the emergency room with complaints of anterior chest discomfort that started about 40 minutes prior to presentation. No radiation to the arm neck or jaw. Positive associated shortness of breath. No diaphoresis. In the emergency room, an ECG was done. It showed changes consistent with acute anterior myocardial infarction. Subsequently a STEMI alert was called. [facility] Medical History H/O Alexis thyroiditis Type 2 diabetes mellitus Breast pain, left Hemorrhoid Breast cancer screening Diabetes mellitus type 1.5 Osteoarthritis Morbid obesity with BMI of 40.0-44.9, adult Osteopenia Left upper arm pain Left shoulder pain Intertriginous dermatitis associated with moisture Chronic back pain Easy bruising Walker as ambulation aid Ambulates with cane Pulmonary embolism DVT (deep venous thrombosis) Syncope Gastric reflux Chronic cough History of stress test Hypertension History of anesthesia problem Degenerative arthritis of hip Hypertension Polyneuropathy Spinal stenosis of lumbar region Cataract fragments in right eye following surgery Herniated nucleus pulposus, L3-4 left Cubital tunnel syndrome on left Impaired gait and mobility Chronic neck pain Cervical spinal stenosis Carpal tunnel syndrome, left Cervical radiculopathy at C8 Glaucoma DM neuropathies Liver hemangioma Ulcer Alexis's thyroiditis Rheumatoid arthritis Lupus IBS (irritable bowel syndrome) Gout Cataracts, bilateral History of breast lump History of UTI Anemia Seasonal allergies Home Medications ???Medication ???Instructions ???Recorded ???Last Taken ???Type cholecalciferol (vitamin D3) 10 25 mcg PO DAILY Check with primary 07/06/21 Unknown History mcg (400 unit) capsule doctor gabapentin 600 mg tablet 600 mg PO DAILY Check with primary 07/06/21 Unknown History doctor vitamin B complex (B 1 tab PO DAILY supplement 09/18/21 Unknown History Complex-Vitamin B12 tablet) sitagliptin phosphate 100 mg 100 mg PO DAILY diabetes 03/14/22 Unknown History tablet (Januvia) multivitamin 1 tab PO DAILY supplement 08/03/22 Unknown History cranberry extract 250 mg tablet 1 mg PO DAILY Check with primary 1 10/20/21 Unknown History doctor circaid wrap #2 ea 09/03/22 Unknown Rx acetaminophen 500 mg tablet 1,000 mg PO Q6 PRN 11/28/22 Unknow n History omeprazole 20 mg capsule,delayed 20 mg PO DAILY PRN reflux 11/28/22 Unknown History release Handicap Placard #1 ea 12/10/22 Unknown Rx blood-glucose meter (OneTouch #1 ea 01/18/23 Unknown Rx Ultra2 Meter kit) Electronic blood pressure cuff #1 ea 05/20/23 Unknown Rx losartan 50 mg tablet 50 mg PO DAILY #90 tabs 06/04/23 U nknown Rx diclofenac sodium 1 % topical gel 4 g topical BID PRN Muscle/joint 06/18/23 Unknown Rx pain #100 grams insulin glargine 100 unit/mL (3 25 unit (0.25 mL) subcut DAILY DM 07/23/23 Unknown Rx mL) subcutaneous pen (Lantus #15 mL Solostar U-100 Insulin) blood sugar diagnostic (OneTouch #180 ea 08/05/23 Unknown Rx Ultra Test strips) lancets #180 ea 08/05/23 Unknown Rx pen needle, diabetic 32 gauge x #150 ea 09/12/23 Unknown Rx 5/32 (BD Ultra-Fine Nan Pen Needle) insulin lispro 100 unit/mL 9 unit (0.09 mL) subcut TID Unknown Rx subcutaneous cartridge (Humalog diabetes #8.1 mL U-100 Insulin) Allergy/AdvReac Type Severi (more content not included)... Normal [facility] Echo Complete W/ Contraston 11-26-2024 Echo Complete W/ Contrast [facility] Cardiovascular Services [address] [place] [address] Echo Complete W/ Contrast 11/26/24 1502 MR#: [id number] Acct: [id number] Name: TRISTEN GOMEZ Rep #: [id number] : 1950 74 From: Saurav Arellano MD Attending Dr: Dr. Tahira De MD Status: AD M IN Ordering Dr: Saurav Arellano MD Date: 11/26/24 Location: ICU Sex: F C Admitted: 11/26/24 Reason For Study Reason For Study: STEMI Procedure This was a limited 2D transthoracic echocardiogram. The study was technically difficult. Contrast injection was performed. Exam performed portable in ICU/CCU. Left Ventricle Normal size and thickness. Severe apical hypokinesis. Anterior septal hypokinesis. Overall LVEF estimated at 50%. Stage I diastolic dysfunction. Right Ventricle Normal right ventricle. Atria The left and right atria are normal. Mitral Valve Trivial mitral valve insufficiency. Tricuspid Valve Normal tricuspid valve. Aortic Valve Trisinus/trileaflet aortic valve. Trivial aortic valve insufficiency. Pulmonic Valve The pulmonic valve is not well visualized. Great Vessels The aortic root is not well visualized. Pericardium/Pleural No pericardial effusion. Medication Diluted definity 2ml given slow IV push to enhance endocardial definition. MMode/2D Measurements Calculations LVIDd: 4.3 cm IVSd: 0.85 cm LVOT diam: 2.0 cm LVIDs: 3.0 cm LVPWd: 0.99 cm RVDd: 3.0 cm FS: 30.2 % LVOT area: 3.1 cm2 LAV(MOD-bp): 38.8 ml LVAd ap4: 30.5 cm2 SV(MOD-sp4): 46.5 ml LAV(MOD-bp) Indexed: 18.8 ml/m2 LVLd ap4: 8.2 cm SI(MOD-sp4): 22.5 ml/m2 LAV(MOD-sp2): 30.1 ml EDV(MOD-sp4): 91.7 ml LAV(MOD-sp4): 50.3 ml EDV(sp4-el): 96.2 ml LVAs ap4: 20.3 cm2 LVLs ap4: 7.4 cm ESV(MOD-sp4): 45.3 ml ESV(sp4-el): 46.9 ml EF(MOD-sp4): 50.7 % EF(sp4-el): 51.3 % SV(sp4-el): 49.4 ml LA A4 area: 18.0 cm2 RA A4 area: 12.7 cm2 Time Measurements MV dec time: 0.17 sec Doppler Measurements Calculations MV E max adore: 113.7 cm/sec Lat Peak E' Adore: 8.2 cm/sec Med Peak E' Adore: 5.8 cm/sec MV A max adore: 74.2 cm/sec E/E' lat: 13.9 E/E' med: 19.6 MV E/A: 1.5 MV V2 max: 104.3 cm/sec Ao V2 max: 130.3 cm/sec MV max P.4 mmHg MV dec slope: 680.0 cm/sec2 Ao max P.8 mmHg MV V2 mean: 63.8 cm/sec Ao V2 mean: 96.5 cm/sec MV mean P.8 mmHg Ao mean P.2 mmHg MV V2 VTI: 31.0 cm Ao V2 VTI: 36.2 cm AV (velocity ratio): 0.76 MVA(VTI): 2.7 cm2 BLUE(I,D): 2.3 cm2 BLUE(V,D): 2.7 cm2 LV V1 max: 114.4 cm/sec SV(LVOT): 84.9 ml LV V1 max P.3 mmHg LV V1 mean P.9 mmHg LV V1 mean: 78.9 cm/sec LV V1 VTI: 27.7 cm ECHO/Echo Complete W/ Contrast Interpretation Summary Severe apical hypokinesis to akinesis. Anterior septal hypokinesis. Overall LVEF estimated at 50%. Stage I diastolic dysfunction. The study was technically difficult. Ordering Physician: Saurav Arellano Referring Physician: Saurav Arellano Performed By: Tabitha Espitia RCS 11/26/24 1632 Date Saurav Arellano MD CC: Dr. Saurav Arellano MD; Dr. Aries Hill MD; Dr. Tahira De MD Date Dictated: 11/26/24 1502 Date Transcribed: 11/26/24 163 Back Padder: Signed Normal [facility] Echocardiogram study reportO rdered By: Saurav Arellano on 11-26-2024 Study report [facility] Cardiovascular Services [address] [place] [address] Echo Complete W/ Contrast 11/26/24 1502 MR#: [id number] Acct: [id number] Name: TRISTEN GOMEZ TOSHIA Rep #:[id number] : 1950 74 From: Saurav Arellano MD Attending Dr: Dr. Tahira De MD Status: ADM IN Ordering Dr: Saurav Arellano MD Date: Location: ICU Sex: F C Admitted: 11/26/24 Reason For Study Reason For Study: STEMI Procedure This was a limited 2D transthoracic echocardiogram. The study was technically difficult. Contrast injection was performed. Exam performed portable in ICU/CCU. Left Ventricle Normal size and thickness. Severe apical hypokinesis. Anterior septal hypokinesis. Overall LVEF estimated at 50%. Stage I diastolic dysfunction. Right Ventricle Normal right ventricle. Atria The left and right atria are normal. Mitral Valve Trivial mitral valve insufficiency. Tricuspid Valve Normal tricuspid valve. Aortic Valve Trisinus/trileaflet aortic valve. Trivial aortic valve insufficiency. Pulmonic Valve The pulmonic valve is not well visualized. Great Vessels The aortic root is not well visualized. Pericardium/Pleural No pericardial effusion. Medication Diluted definity 2ml given slow IV push to enhance endocardial definition. MMode/2D Measurements & Calculations LVIDd: 4.3 cm IVSd: 0.85 cm LVOT diam: 2.0 cm LVIDs: 3.0 cm LVPWd: 0.99 cm RVDd: 3.0 cm FS: 30.2 % LVOT area: 3.1 cm2 LAV(MOD-bp): 38.8 ml LVAd ap4: 30.5 cm2 SV(MOD-sp4): 46.5 ml LAV(MOD-bp) Indexed: 18.8 ml/m2 LVLd ap4: 8.2 cm SI(MOD-sp4): 22.5 ml/m2 LAV(MOD-sp2): 30.1 ml EDV(MOD-sp4): 91.7 ml LAV(MOD-sp4): 50.3 ml EDV(sp4-el): 96.2 ml LVAs ap4: 20.3 cm2 LVLs ap4: 7.4 cm ESV(MOD-sp4): 45.3 ml ESV(sp4-el): 46.9 ml EF(MOD-sp4): 50.7 % EF(sp4-el): 51.3 % SV(sp4-el): 49.4 ml LA A4 area: 18.0 cm2 RA A4 area: 12.7 cm2 Time Measurements MV dec time: 0.17 sec Doppler Measurements & Calculations MV E max adore: 113.7 cm/sec Lat Peak E' Adore: 8.2 cm/sec Med Peak E' Adore: 5.8 cm/sec MV A max adore: 74.2 cm/sec E/E' lat: 13.9 E/E' med: 19.6 MV E/A: 1.5 MV V2 max: 104.3 cm/sec Ao V2 max: 130.3 cm/sec MV max P.4 mmHg MV dec slope: 680.0 cm/sec2 Ao max P.8 mmHg MV V2 mean: 63.8 cm/sec Ao V2 mean: 96.5 cm/sec MV mean P.8 mmHg Ao mean P.2 mmHg MV V2 VTI: 31.0 cm Ao V2 VTI: 36.2 cm AV (velocity ratio): 0.76 MVA(VTI): 2.7 cm2 BLUE(I,D): 2.3 cm2 BLUE(V,D): 2.7 cm2 LV V1 max: 114.4 cm/sec SV(LVOT): 84.9 ml LV V1 max P.3 mmHg LV V1 mean P.9 mmHg LV V1 mean: 78.9 cm/sec LV V1 VTI: 27.7 cm ECHO/Echo Complete W/ Contrast Interpretation Summary Severe apical hypokinesis to akinesis. Anterior septal hypokinesis. Overall LVEFestimated at 50%. Stage I diastolic dysfunction. The study was technically difficult. Ordering Physician: Saurav Arellano Referring Physician: Saurav Arellano Performed By: Tabitha Espitia RCS 11/26/24 1632 Date _ Saurav Arellano MD CC: Dr. Saurav Arellano MD; Dr. Aries Hill MD; Dr. Tahira De MD ~ Date Dictated: 11/26/24 1502 Date Transcribed: 11/26/24 1632 Back Padder: Signed [facility] Work Phone: Emergency Department Summary on 11-26-2024 Emergency Department Summary [facility] Medical Records Department [address] [place] [address] Emergency Department Summary 11/26/24 MR#: [id number] Acct: [id number] Name: TRISTEN GOMEZ Rep #: [id number] : 1950 74 From: Matt Jose DO PCP: Dr. Aries Hill MD Status:ADM IN Location: ICU ICU-1 HPI History of Present Illness Chief Complaint: Chest Pain Informant: patient Narrative Narrative: 74-year-old female history of diabetes and hypertension and remote history of pulmonary embolism presenting to the emergency room with a chief complaint of chest pain. Patient states she has had a chest pressure for about 20 minutes prior to arrival. She notes nausea and vomiting. She states she sees a assistant infant toddler teacher at [facility] but is unsure of why. She denies being on any blood thinners. She denies any new leg symptoms. [facility] Medical History H/O Alexis thyroiditis Type 2 diabetes mellitus Breast pain, left Hemorrhoid Breast cancer screening Diabetes mellitus type 1.5 Osteoarthritis Morbid obesity with BMI of 40.0-44.9, adult Osteopenia Left upper arm pain Left shoulder pain Intertriginous dermatitis associated with moisture Chronic back pain Easy bruising Walker as ambulation aid Ambulates with cane Pulmonary embolism DVT (deep venous thrombosis) Syncope Gastric reflux Chronic cough History of stress test Hypertension History of anesthesia problem Degenerative arthritis of hip Hypertension Polyneuropathy Spinal stenosis of lumbar region Cataract fragments in right eye following surgery Herniated nucleus pulposus, L3-4 left Cubital tunnel syndrome on left Impaired gait and mobility Chronic neck pain Cervical spinal stenosis Carpal tunnel syndrome, left Cervical radiculopathy at C8 Glaucoma DM neuropathies Liver hemangioma Ulcer Alexis's thyroiditis Rheumatoid arthritis Lupus IBS (irritable bowel syndrome) Gout Cataracts, bilateral History of breast lump History of UTI Anemia Seasonal allergies Home Medications ???Medication ???Instructions ???Recorded ???Last Taken ???Type cholecalciferol (vitamin D3) 10 25 mcg PO DAILY Check with primary 07/06/21 Unknown History mcg (400 unit) capsule doctor gabapentin 600 mg tablet 600 mg PO DAILY Check with primary 07/06/21 Unknown History doctor vitamin B complex (B 1 tab PO DAILY supplement 09/18/21 Unknown History Complex-Vitamin B12 tablet) sitagliptin phosphate 100 mg 100 mg PO DAILY diabetes 03/14/22 Unknown History tablet (Januvia) multivitamin 1 tab PO DAILY supplement 08/03/22 Unknown History cranberry extract 250 mg tablet 1 mg PO DAILY Check with primary 1 10/20/21 Unknown History doctor circaid wrap #2 ea 09/03/22 Unknown Rx acetaminophen 500 mg tablet 1,000 mg PO Q6 PRN 11/28/22 Unknow n History omeprazole 20 mg capsule,delayed 20 mg PO DAILY PRN reflux 11/28/22 Unknown History release Handicap Placard #1 ea 12/10/22 Unknown Rx blood-glucose meter (OneTouch #1 ea 01/18/23 Unknown Rx Ultra2 Meter kit) Electronic blood pressure cuff #1 ea 05/20/23 Unknown Rx losartan 50 mg tablet 50 mg PO DAILY #90 tabs 06/04/23 U nknown Rx diclofenac sodium 1 % topical gel 4 g topical BID PRN Muscle/joint 06/18/23 Unknown Rx pain #100 grams insulin glargine 100 unit/mL (3 25 unit (0.25 mL) subcut DAILY DM 07/23/23 Unknown Rx mL) subcutaneous pen (Lantus #15 mL Solostar U-100 Insulin) blood sugar diagnostic (OneTouch #180 ea 08/05/23 Unknown Rx Ultra Test strips) lancets #180 ea 08/05/23 Unknown Rx pen needle, diabetic 32 gauge x #150 ea 09/12/23 Unknown Rx (BD Ultra-Fine Nan Pen Needle) insulin lispro 100 unit/mL 9 unit (0.09 mL) subcut TID Unknown Rx subcutaneous cartridge (Humalog diabetes #8.1 mL U-100 Insulin) Allergy/AdvReac Type Severity Reaction Status Date / Time aspirin Allergy Upset Verified 11/26/24 12:37 Stomach capsaicin Allergy Rash Verified 11/26/24 12:37 chlorhexidine Allergy Rash Verified 11/26/24 12:37 codeine Allergy Vomiting Verified 11/26/24 12:37 empagliflozin (From Allergy Other Verified 11/26/24 12:37 Jardiance) erythromycin base Allergy Other Verified 11/26/24 12:37 hydrocodone (From [place]) Allergy Other Verified 11/26/24 12:37 Sulfa (Sulfonamide Allergy Rash Verified 11/26/24 12:37 Antibiotics) tramadol Allergy Other Verified 11/26/24 12:37 trimethoprim Allergy PT UNSURE Verified 11/26/24 12:37 OF REACTION baclofen AdvReac Severe nightmares Verified 11/26/24 12:37 adhesive tape AdvReac Rash Verified 11/26/24 12:37 buprenorphine AdvReac Rash Verified 11/26/24 12:37 carbidopa (From Sinemet) AdvReac Rash Verified 11/26/24 12:37 (more content not included)... Normal [facility] Eosinophil percentageOrdered By: Matt Jose on 11-26-2024 Eosinophils/100 WBC (Bld) 3.1 % 0-5 [facility] Erythrocyte distribution wid th ratioOrdered By: Matt Jose on 03-06-2025 Erythrocyte distribution width (RBC) [Ratio] 13.0 % 11.6-14.6 [facility] Erythrocyte distribution wid th standard deviationOrdered By: Matt Jose on 11-26-2024 Erythrocyte distribution width (RBC) [Entitic vol] 44.4 fL High 35.1-43.9 [facility] H AND P Exam - [facility] 11-26-2024 H&P Exam - Hospitalist [facility] Medical Records Department [address] [place] [address] H P Exam - Hospitalist 11/26/24 1416 MR#: [id number] Acct: [id number] Name: TRISTEN GOMEZ Rep #: [id number] : 1950 74 From: Tahira De MD PCP: Dr. Aries Hill MD Status:ADM IN Location: ICU ICU07-1 HPI - General General Date of Admission: 11/26/24 Date of Service: 11/26/24 Chief Complaint: chest pain HPI Narrative TRISTEN GOMEZ, is a 74 F with a past medical history as outlined was admitted through the ED on 11/26/2024 with a complaint of chest pain. He had a past medical history of diabetes and hypertension as well as a remote history of PE. The chest pain started about 20 minutes prior to admission and she had associated nausea and vomiting. She denied any history of heart disease and says she sees a assistant infant toddler teacher at ; she denies any history of heart issues. Review of systems otherwise negative. EKG done on admission showed ST elevation in V1 and V2 with reciprocal inferior changes. STEMI alert was called and patient was taken emergently to the Clothing Worker after being given aspirin and Brilinta as well as heparin, morphine and Zofran. CBC done prior to the cath showed WBC of 9.3 with hemoglobin of 13.1 and platelets of 285. Initial troponin was 16. Chemistry showed potassium of 4.1 with sodium of 138, bicarb of 19 and anion gap of 13 with a creatinine of 0.88. Creatinine was 0.8, serum glucose was 180. Chest x-ray showed no acute cardiopulmonary pathology. She had cardiac cath. She was admitted to the ICU afterwards. Patient was seen in the ICU. She had no active complaints. Review of systems otherwise negative. She was hemodynamically stable. [facility] Medical History H/O Alexis thyroiditis Type 2 diabetes mellitus Breast pain, left Hemorrhoid Breast cancer screening Diabetes mellitus type 1.5 Osteoarthritis Morbid obesity with BMI of 40.0-44.9, adult Osteopenia Left upper arm pain Left shoulder pain Intertriginous dermatitis associated with moisture Chronic back pain Easy bruising Walker as ambulation aid Ambulates with cane Pulmonary embolism DVT (deep venous thrombosis) Syncope Gastric reflux Chronic cough History of stress test Hypertension History of anesthesia problem Degenerative arthritis of hip Hypertension Polyneuropathy Spinal stenosis of lumbar region Cataract fragments in right eye following surgery Herniated nucleus pulposus, L3-4 left Cubital tunnel syndrome on left Impaired gait and mobility Chronic neck pain Cervical spinal stenosis Carpal tunnel syndrome, left Cervical radiculopathy at C8 Glaucoma DM neuropathies Liver hemangioma Ulcer Alexis's thyroiditis Rheumatoid arthritis Lupus IBS (irritable bowel syndrome) Gout Cataracts, bilateral History of breast lump History of UTI Anemia Seasonal allergies Home Medications ???Medication ???Instructions ???Recorded ???Last Taken ???Type cholecalciferol (vitamin D3) 10 25 mcg PO DAILY Check with primary 07/06/21 Unknown History mcg (400 unit) capsule doctor gabapentin 600 mg tablet 600 mg PO DAILY Check with primary 07/06/21 Unknown History doctor vitamin B complex (B 1 tab PO DAILY supplement 09/18/21 Unknown History Complex-Vitamin B12 tablet) sitagliptin phosphate 100 mg 100 mg PO DAILY diabetes 03/14/22 Unknown History tablet (Januvia) multivitamin 1 tab PO DAILY supplement 08/03/22 Unknown History cranberry extract 250 mg tablet 1 mg PO DAILY Check with primary 1 10/20/21 Unknown History doctor circaid wrap #2 ea 09/03/22 Unknown Rx acetaminophen 500 mg tablet 1,000 mg PO Q6 PRN 11/28/22 Unknow n History omeprazole 20 mg capsule,delayed 20 mg PO DAILY PRN reflux 11/28/22 Unknown History release Handicap Placard #1 ea 12/10/22 Unknown Rx blood-glucose meter (OneTouch #1 ea 01/18/23 Unknown Rx Ultra2 Meter kit) Electronic blood pressure cuff #1 ea 05/20/23 Unknown Rx losartan 50 mg tablet 50 mg PO DAILY #90 tabs 06/04/23 U nknown Rx diclofenac sodium 1 % topical gel 4 g topical BID PRN Muscle/joint 06/18/23 Unknown Rx pain #100 grams insulin glargine 100 unit/mL (3 25 unit (0.25 mL) subcut DAILY DM 07/23/23 Unknown Rx mL) subcutaneous pen (Lantus #15 mL Solostar U-100 Insulin) blood sugar diagnostic (OneTouch #180 ea 08/05/23 Unknown Rx Ultra Test strips) lancets #180 ea 08/05/23 Unknown Rx pen needle, diabetic 32 gauge x #150 ea 09/12/23 Unknown Rx (BD Ultra-Fine Nan Pen Needle) insulin lispro 100 unit/mL 9 unit (0.09 mL) subcut TID Unknown Rx subcutaneous cartridge (Humalog diabetes #8.1 mL U-100 Insulin) Allergy/AdvReac Type Severity Reaction Status Date / Time aspirin Allergy (more content not included)... Normal [facility] Hematocrit Auto (Bld) [Volum e fraction]Ordered By: Matt Jose on 11-26-2024 Hematocrit (Bld) [Volume fraction] 39.4 % 37-47 [facility] Hemoglobin measurementOrdere d By: Matt Jose on 11-26-2024 Hemoglobin (Bld) [Mass/Vol] 13.1 g/dL 12.0-15.0 [facility] Immature granulocytes/100 WB C Auto (Bld)Ordered By: Matt Jose on 11-26-2024 Immature granulocytes/100 WBC (Bld) 0.600 % 0.0-0.9 [facility] Comment on above: IG% - Immature Granu locytes (promyelocytes, myelocytes and metamyelocytes) > 1% indicates that a LEFT SHIFT is Present. International normalized rat io (INR) calculationOrdered By: Matt Jose on 11-26-2024 INR Coag (Bld) [Relative time] 1.1 {INR} [facility] L499.0042on 11-26-2024 Trop T High Sen Normal <=14 [facility] Comment on above: Result Comment: @ok to cancel as by Nydia still wanted MG Performed By: #### L 300.3900, L100.0100, L501.5200, L300.4310, L501.4021, L500.2500 #### [facility] [address] [place], [address] L499.0043on 11-26-2024 Trop T High Sen Normal <=14 [facility] Comment on above: Result Comment: @ok to cancel as by [email or web address] Performed By: #### L 300.3900, L100.0100, L501.5200, L300.4310, L501.4021, L500.2500 #### [facility] [address] [place], [address] L501.4021on 11-26-2024 Trop T High Sen 16 ng/L High <=14 [facility] Comment on above: Performed By: #### L 300.3900, L100.0100, L501.5200, L300.4310, L501.4021, L500.2500 #### [facility] [address] [place], [address] Lymphocytes Auto (Unsp spec) [#/Vol]Ordered By: Matt Jose on 11-26-2024 Lymphocytes (Bld) [#/Vol] 2.79 10*3/uL 0.83-4.51 [facility] Lymphocytes/100 WBC Auto (Un sp spec)Ordered By: Matt Jose on 11-26-2024 Lymphocytes/100 WBC (Bld) 30.1 % 19-41 [facility] MCV (mean corpuscular volume ) determinationOrdered By: Matt Jose on 11-26-2024 MCV (RBC) [Entitic vol] 93.8 fL 81-99 [facility] MR/QUALITYon 11-26-2024 MR/QUALITY [facility] Medical Records Department [address] [place] [address] Quality Report 11/26/24 1408 MR#: [id number] Acct: [id number] Name: TRISTEN GOMEZ Rep #: [id number] : 1950 74 From: Mike Pacheco PCP: Dr. Aries Hill MD Status:REG SDC Y Location: ICU ICU07-1 STEMI STEMI ED Door Time / Other REG STEMI EKG Time (1) ST elevation (STEMI) myocardial infarction: Acute 11/26/24 12:33 Balloon/Aspiration Date-Time Date of Balloon/Aspiration:: 11/26/24 Time of Balloon/Aspiration:: 13:16 11/26/24 1409 Date Mike Pacheco Cosigner Signature (if applicable): Date CC: Signed Normal [facility] Magnesiumon 11-26-2024 Magnesium [Mass/Vol] 1.7 mg/dL Normal 1.5-2.[address] [facility] Comment on above: Performed By: #### L 300.3900, L100.0100, L501.5200, L300.4310, L501.4021, L500.2500 #### [facility] [address] [place], [place], [address] Magnesium (Unsp spec) [Mass/ Vol]Ordered By: Matt Jose on 11-26-2024 Magnesium [Mass/Vol] 1.7 mg/dL 1.5-2.[address] [facility] Magnesium measurement (mass/ volume)Ordered By: Matt Jose on 11-26-2024 Magnesium (Unsp spec) [Mass/Vol] 1.7 mg/dL 1.5-2.2 [facility] Mean corpuscular hemoglobin (MCH) determinationOrdered By: Matt Jose on 11-26-2024 MCH (RBC) [Entitic mass] 31.2 pg 27.0-32.0 [facility] Mean corpuscular hemoglobin concentration (MCHC) determinationOrdered By: Matt Jose on 11-26-2024 MCHC (RBC) [Mass/Vol] 33.2 g/dL 32-36 [facility] Mean platelet volume determi nationOrdered By: Matt Jose on 11-26-2024 Platelet mean volume (Bld) [Entitic vol] 8.9 fL 6.2-12.0 [facility] Monocyte percentageOrdered B y: Matt Jose on 11-26-2024 Monocytes/100 WBC (Bld) 5.9 % 0-10 [facility] Neutrophil percentageOrdered By: Matt Jose on 11-26-2024 Neutrophils/100 WBC (Bld) 59.9 % 47-70 [facility] No Panel InformationOrdered By: Matt Jose on 11-26-2024 Troponin T High Sensitivity 16 ng/L High <14 [facility] Nucleated red blood cell per centageOrdered By: Matt Jose on 11-26-2024 Nucleated RBC/100 WBC (Bld) [Ratio] 0 % 0-5 [facility] Partial Thromboplast Timeon 11-26-2024 aPTT Coag (Bld) [Time] 25.8 s Normal 24.1-36.2 [facility] Comment on above: Performed By: #### L 300.3900, L100.0100, L501.5200, L300.4310, L501.4021, L500.2500 #### [facility] [address] [place], [place], [id number] Platelet countOrdered By: Juan Manuel Jose on 11-26-2024 Platelets (Bld) [#/Vol] 285 10*3/uL 150-450 [facility] Prothrombin Time w/INRon INR Coag (PPP) [Relative time] 1.1 {INR} Normal [facility] Comment on above: Performed By: #### L 300.3900, L100.0100, L501.5200, L300.4310, L501.4021, L500.2500 #### [facility] [address] [place], [place], [id number] PT Coag (PPP) [Time] 14.1 s Normal 11.7-14.[address] [facility] Comment on above: Performed By: #### L 300.3900, L100.0100, L501.5200, L300.4310, L501.4021, L500.2500 #### [facility] [address] [place], [address] Prothrombin timeOrdered By: Matt Jose on 11-26-2024 PT Coag (PPP) [Time] 14.1 s 11.7-14.[address] [facility] RBC Auto (Bld) [#/Vol]Ordere d By: Matt Jose on 11-26-2024 RBC (Bld) [#/Vol] 4.20 10*6/uL 4.2-5.4 [facility] White blood cell (WBC) count Ordered By: Matt Jose on 11-26-2024 WBC (Bld) [#/Vol] 9.3 10*3/uL 4.4-11.0 [facility] aPTT Coag (PPP) [Time]Ordere d By: Matt Jose on 11-26-2024 aPTT Coag (Bld) [Time] 25.8 s 24.1-36.2 [facility] CT ABDOMEN PELVIS W IV AND O RAL CONTRASTon 11-19-2024 CT ABDOMEN PELVIS W IV AND ORAL CONTRAST Interpreted By: Silas Young, STUDY: CT ABDOMEN PELVIS W IV AND ORAL CONTRAST; 11/19/2024 1:11 pm INDICATION: Signs/Symptoms:Epigast josefina and periumbilical abdominal pain. COMPARISON: 09/18/2018 ACCESSION NUMBER(S): [id number] ORDERING CLINICIAN: SILAS STERN TECHNIQUE: CT of the abdomen and pelvis was performed. Standard contiguous axial images were obtained at 3 mm slice thickness through the abdomen and pelvis. Coronal and sagittal reconstructions at 3 mm slice thickness were performed. 70 ML of contrast Omnipaque 350 were administered intravenously without immediate complication. Positive oral contrast was given. FINDINGS: LOWER CHEST: Mild bibasilar atelectasis. Stable benign 6 mm solid pleural-based pulmonary nodule right middle lobe. The heart is normal in size without evidence of significant pericardial effusion. Circumferential wall thickening of the distal esophagus. ABDOMEN: LIVER: The liver is normal in size. Similar appearance of hypoattenuating lesion in hepatic segment 7 measuring 8.6 cm in length previously characterize as a hemangioma. BILE DUCTS: The intrahepatic and extrahepatic ducts are not dilated. GALLBLADDER: The gallbladder is surgically absent. PANCREAS: The pancreas appears unremarkable without evidence of ductal dilatation or masses. SPLEEN: The spleen is normal in size. An accessory splenule is present. ADRENAL GLANDS: Bilateral adrenal glands appear normal. KIDNEYS AND URETERS: The kidneys are normal in size and enhance symmetrically. No hydroureteronephrosis or nephroureterolithiasis is identified. Stable cyst in the inferior pole of the right kidney. PELVIS: BLADDER: The urinary bladder is decompressed, limited for evaluation. REPRODUCTIVE ORGANS: No pelvic masses. BOWEL: The stomach is unremarkable. The small and large bowel are normal in caliber and demonstrate no wall thickening. The appendix appears normal. VESSELS: There is no aneurysmal dilatation of the abdominal aorta. The IVC appears normal. There are mild atherosclerotic calcifications of the abdominal aorta and its branches. PERITONEUM/RETROPERITO NEUM/LYMPH NODES: No ascites or free air, no fluid collection. No abdominopelvic lymphadenopathy is present. BONES AND ABDOMINAL WALL: No suspicious osseous lesions are identified. 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 Posterior spinal fusion is seen at L4-S1. Moderate fat containing ventral abdominal wall hernia. IMPRESSION: 1. Circumferential wall thickening of the distal esophagus. Clinical correlation for reflux/esophagitis is recommended. Further evaluation with direct visualization may be obtained as indicated. 2. Moderate fat containing ventral abdominal wall hernia. 3. Additional findings as described. MACRO: None Signed by: Silas Young 11/21/2024 6:20 AM Dictation workstation: [id number] Normal [facility] POCT glycosylated hemoglobin (Hb A1C) manually resultedOrdered By: Leyla Franco on 11-16-2024 HbA1c (Bld) [Mass fraction] 7.2 % Abnormal 4.2 - 6.5 % [facility] Interpretation and review of laboratory results Abnormal [facility] CBC (H/H, RBC, INDICES, WBC, PLT)on 11-12-2024 Erythrocyte distribution width (RBC) [Ratio] 12.0 % Normal 11.0-15.0 [facility] Comment on above: Performed By: #### 6 , 1758, 76621 #### [facility] [place] [address] Switchboard Clerk: Corey Koch MD Hematocrit (Bld) [Volume fraction] 41.1 % Normal 35.0-45.0 [facility] Comment on above: Performed By: #### 6 , 1758, 12328 #### [facility] [place] [address] Switchboard Clerk: Corey Koch MD Hemoglobin (Bld) [Mass/Vol] 13.6 g/dL Normal 11.7-15.5 [facility] Comment on above: Performed By: #### 6 , 1758, 07964 #### [facility] [place] [address] Switchboard Clerk: Corey Koch MD MCH (RBC) [Entitic mass] 30.9 pg Normal 27.0-33.0 [facility] Comment on above: Performed By: #### 6 , 1758, 25454 #### [facility] [place] [address] Switchboard Clerk: Corey Koch MD MCHC (RBC) [Mass/Vol] 33.1 g/dL Normal 32.0-36.0 [facility] Comment on above: Result Comment: For adults, a slight decrease in the calculated MCHC value (in the range of 30 to 32 g/dL) is most likely not clinically significant; however, it should be interpreted with caution in correlation with other red cell parameters and the patient's clinical condition. Performed By: #### 6 , 1758, 92717 #### [facility] [place] [address] Switchboard Clerk: Corey Koch MD MCV (RBC) [Entitic vol] 93.4 fL Normal 80.0-100.0 [facility] Comment on above: Performed By: #### 6 , 1758, 92987 #### [facility] of [place] [address] Switchboard Clerk: Corey Koch MD Platelet mean volume (Bld) [Entitic vol] 9.3 fL Normal 7.5-12.5 [facility] Comment on above: Performed By: #### 6 , 1758, 62777 #### [facility] of [place] [address] Switchboard Clerk: Corey Koch MD Platelets (Bld) [#/Vol] 347 10*3/uL Normal 140-400 [facility] Comment on above: Performed By: #### 6 , 1758, 14537 #### [facility] of [place] [address] Switchboard Clerk: Corey Koch MD RBC (Bld) [#/Vol] 4.40 10*6/uL Normal 3.80-5.10 [facility] Comment on above: Performed By: #### 6 , 1758, #### [facility] of [place] [address] Switchboard Clerk: Corey Koch MD WBC (Bld) [#/Vol] 8.8 10*3/uL Normal 3.8-10.8 [facility] Comment on above: Performed By: #### 6 , 1758, 48519 #### [facility] of [place] [address] Switchboard Clerk: Corey Koch MD COMPREHENSIVE METABOLIC PANE L W/ANION GAPon 11-12-2024 Albumin [Mass/Vol] 3.9 g/dL Normal 3.6-5.1 [facility] Comment on above: Performed By: #### 6 , 1758, 22151 #### [facility] of [place] [address] Switchboard Clerk: Corey Koch MD ALP [Catalytic activity/Vol] 112 U/L Normal 37-153 [facility] Comment on above: Performed By: #### 6 , 1758, 89612 #### [facility] of [address], [address] [place] [address] Switchboard Clerk: Corey Koch MD ALT [Catalytic activity/Vol] 21 U/L Normal 6-29 [facility] Comment on above: Performed By: #### 6 , 1758, 15024 #### [facility] of [address], [address] [place] [address] Switchboard Clerk: Corey Koch MD AST [Catalytic activity/Vol] 20 U/L Normal 10-35 [facility] Comment on above: Performed By: #### 6 , 1758, 84251 #### [facility] of [address], [address] [place] [address] Switchboard Clerk: Corey Koch MD Bilirubin [Mass/Vol] 0.4 mg/dL Normal 0.2-1.2 [facility] Comment on above: Performed By: #### 6 , 1758, 64566 #### [facility] of [address], [address] [place] [address] Switchboard Clerk: Corey Koch MD Calcium [Mass/Vol] 9.5 mg/dL Normal 8.6-10.4 [facility] Comment on above: Performed By: #### 6 , 1758, 82839 #### [facility] of [address], [address] [place] [address] Switchboard Clerk: Corey Koch MD Chloride [Moles/Vol] 103 mmol/L Normal 98-110 [facility] Comment on above: Performed By: #### 6 , 1758, 52656 #### [facility] of [address], [address] [place] [address] Switchboard Clerk: Corey Koch MD CO2 [Moles/Vol] 29 mmol/L Normal 20-32 [facility] Comment on above: Performed By: #### 6 , 1758, 93693 #### [facility] of [place] [address] Switchboard Clerk: Corey Koch MD Creatinine [Mass/Vol] 0.74 mg/dL Normal 0.60-1.[address] [facility] Comment on above: Performed By: #### 6 , 1758, 84218 #### [facility] [address], [address] [place] [address] Switchboard Clerk: Corey Koch MD ELECTROLYTE BALANCE 10 mmol/L (calc) Normal 7-17 [facility] Comment on above: Performed By: #### 6 , 1758, 12075 #### [facility] [place] [address] Switchboard Clerk: Corey Koch MD GFR/1.73 sq M.predicted among non-blacks MDRD (S/P/Bld) [Vol rate/Area] 85 mL/min/{1.73_m2} Normal > OR = 60 [facility] Comment on above: Performed By: #### 6 , 1758, 83433 #### [facility] [place] [address] Switchboard Clerk: Corey Koch MD Glucose [Mass/Vol] 138 mg/dL High 65-99 [facility] Comment on above: Result Comment: Fasting reference interval For someone without known diabetes, a glucose value >125 mg/dL indicates that they may have diabetes and this should be confirmed with a follow-up test. Performed By: #### 6 , 1758, 38768 #### [facility] [place] [address] Switchboard Clerk: Corey Koch MD Potassium [Moles/Vol] 4.4 mmol/L Normal 3.5-5.[address] [facility] Comment on above: Performed By: #### 6 , 1758, 14168 #### [facility] [place] [address] Switchboard Clerk: Corey Koch MD Protein [Mass/Vol] 6.9 g/dL Normal 6.1-8.1 [facility] Comment on above: Performed By: #### 6 , 1758, #### [facility] of [address], [address] [place] [address] Switchboard Clerk: Corey Koch MD Sodium [Moles/Vol] 142 mmol/L Normal 135-146 [facility] Comment on above: Performed By: #### 6 , 1758, [id number] #### [facility] of [address], [address] [place] [address] Switchboard Clerk: Corey Koch MD Urea nitrogen [Mass/Vol] 14 mg/dL Normal 7-25 [facility] Comment on above: Performed By: #### 6 , 1758, [id number] #### [facility] of [address], [address] [place] [address] Switchboard Clerk: Corey Koch MD LIPASEon 11-12-2024 Lipase [Catalytic activity/Vol] 27 U/L Normal 7-60 [facility] Comment on above: Performed By: #### 6 , 1758, [id number] #### [facility] [address], [address] [place] [address] Switchboard Clerk: Corey Koch MD COLONOSCOPYon 10-28-2024 Colonoscopy Table formatting fro m the original result was not included. Impression Large (grade 3) hemorrhoids The entire colon appeared normal. Findings Internal large (grade 3) hemorrhoids observed during retroflexion The entire colon appeared normal. Recommendation No further screening colonoscopies necessary Age greater than 65 Prior screening history Indication Adenomatous polyp of colon, unspecified part of colon Staff Staff Role Ji Galo MD Proceduralist Medications See Anesthesia Record. Preprocedure A history and physical has been performed, and patient medication allergies have been reviewed. The patient's tolerance of previous anesthesia has been reviewed. The risks and benefits of the procedure and the sedation options and risks were discussed with the patient. All questions were answered and informed consent obtained. Details of the Procedure The patient underwent monitored anesthesia care, which was administered by an anesthesia professional. The patient's blood pressure, ECG, ETCO2, heart rate, level of consciousness, oxygen and respirations were monitored throughout the procedure. A digital rectal exam was performed. The scope was introduced through the anus and advanced to the cecum. Retroflexion was performed in the rectum. The quality of bowel preparation was evaluated using the Erie Bowel Preparation Scale with scores of: right colon = 2, transverse colon = 2, left colon = 3. The total BBPS score was 7. Bowel prep was adequate. The patient experienced no blood loss. The procedure was not difficult. The patient tolerated the procedure well. There were no apparent adverse events. Events Procedure Events Event Event Time ENDO SCOPE IN TIME 10/28/2024 11:50 AM ENDO SCOPE OUT TIME 10/28/2024 11:56 AM ENDO SCOPE IN TIME 10/28/2024 12:00 PM ENDO CECUM REACHED 10/28/2024 12:06 PM ENDO SCOPE OUT TIME 10/28/2024 12:17 PM Specimens ID Type Source Tests Collected by Time 1 : duodenitis Tissue DUODENUM SECOND PART BIOPSY SURGICAL PATHOLOGY EXAM Zina Duque MA 10/28/2024 1151 2 : r/o h.pylori Tissue STOMACH ANTRUM BIOPSY SURGICAL PATHOLOGY EXAM Zina Duque MA 10/28/2024 1152 3 : r/o eoe Tissue ESOPHAGUS DISTAL BIOPSY SURGICAL PATHOLOGY EXAM Zina Duque MA 10/28/2024 1153 4 : r/o eoe mid and proximal bx Tissue ESOPHAGUS MID BIOPSY SURGICAL PATHOLOGY EXAM Zina Duque MA 10/28/2024 1154 Procedure Location [facility] External Facility [facility] [address] [place] [facility] [address] Referring Provider Ji Galo MD Procedure Provider Ji Galo MD [facility] Colonoscopy studyon 10-28-19 25 Table formatting fro m the original result was not included. Impression Large (grade 3) hemorrhoids The entire colon appeared normal. Findings Internal large (grade 3) hemorrhoids observed during retroflexion The entire colon appeared normal. Recommendation No further screening colonoscopies necessary Age greater than 65 Prior screening history Indication Adenomatous polyp of colon, unspecified part of colon Staff Staff Role Ji Galo MD Proceduralist Medications See Anesthesia Record. Preprocedure A history and physical has been performed, and patient medication allergies have been reviewed. The patient's tolerance of previous anesthesia has been reviewed. The risks and benefits of the procedure and the sedation options and risks were discussed with the patient. All questions were answered and informed consent obtained. Details of the Procedure The patient underwent monitored anesthesia care, which was administered by an anesthesia professional. The patient's blood pressure, ECG, ETCO2, heart rate, level of consciousness, oxygen and respirations were monitored throughout the procedure. A digital rectal exam was performed. The scope was introduced through the anus and advanced to the cecum. Retroflexion was performed in the rectum. The quality of bowel preparation was evaluated using the Erie Bowel Preparation Scale with scores of: right colon = 2, transverse colon = 2, left colon = 3. The total BBPS score was 7. Bowel prep was adequate. The patient experienced no blood loss. The procedure was not difficult. The patient tolerated the procedure well. There were no apparent adverse events. Events Procedure Events Event Event Time ENDO SCOPE IN TIME 10/28/2024 11:50 AM ENDO SCOPE OUT TIME 10/28/2024 11:56 AM ENDO SCOPE IN TIME 10/28/2024 12:00 PM ENDO CECUM REACHED 10/28/2024 12:06 PM ENDO SCOPE OUT TIME 10/28/2024 12:17 PM Specimens ID Type Source Tests Collected by Time 1 : duodenitis Tissue DUODENUM SECOND PART BIOPSY SURGICAL PATHOLOGY EXAM Zina Duque MA 10/28/2024 1151 2 : r/o h.pylori Tissue STOMACH ANTRUM BIOPSY SURGICAL PATHOLOGY EXAM Zina Duque MA 10/28/2024 1152 3 : r/o eoe Tissue ESOPHAGUS DISTAL BIOPSY SURGICAL PATHOLOGY EXAM Zina Duque MA 10/28/2024 1153 4 : r/o eoe mid and proximal bx Tissue ESOPHAGUS MID BIOPSY SURGICAL PATHOLOGY EXAM Zina Duque MA 10/28/2024 1154 Procedure Location [facility] External Facility [facility] [address] [place] [facility] [address] Referring Provider Ji Galo MD Procedure Provider Ji Galo MD [facility] Work Phone: [facility] Work Phone: Neyda 10-28-2024 Esophagogastroduodenos copy Table formatting from the original result was not included. Impression Abnormal mucosa in the upper third of the esophagus, middle third of the esophagus and lower third of the esophagus, consistent with eosinophilic esophagitis; performed cold forceps biopsy to rule out eosinophilic esophagitis The stomach appeared normal. Performed random biopsy to rule out H. pylori. Erythematous mucosa in the duodenal bulb; performed cold forceps biopsy Findings Abnormal mucosa in the upper third of the esophagus, middle third of the esophagus and lower third of the esophagus, consistent with eosinophilic esophagitis; performed cold forceps biopsy to rule out eosinophilic esophagitis; EREFS score: edema absent (0), moderate rings (2), mild exudates (1), severe furrows (2), stricture absent (0)total score 5 The stomach appeared normal. Performed random biopsy using biopsy forceps to rule out H. pylori. Erythematous mucosa in the duodenal bulb; performed cold forceps biopsy Recommendation Await pathology results Will start her on Omeprazole 40 mg BID after reviewing biopsy results if positive for EOE Follow-up in the office in 2-3 months Indication Epigastric pain Staff Staff Role Ji Galo MD Proceduralist Medications See Anesthesia Record. Preprocedure A history and physical has been performed, and patient medication allergies have been reviewed. The patient's tolerance of previous anesthesia has been reviewed. The risks and benefits of the procedure and the sedation options and risks were discussed with the patient. All questions were answered and informed consent obtained. Details of the Procedure The patient underwent monitored anesthesia care, which was administered by an anesthesia professional. The patient's blood pressure, ECG, ETCO2, heart rate, level of consciousness, oxygen and respirations were monitored throughout the procedure. The scope was introduced through the mouth and advanced to the second part of the duodenum. Retroflexion was performed in the cardia. The patient experienced no blood loss. The procedure was not difficult. The patient tolerated the procedure well. There were no apparent adverse events. Events Procedure Events Event Event Time ENDO SCOPE IN TIME 10/28/2024 11:50 AM ENDO SCOPE OUT TIME 10/28/2024 11:56 AM Specimens ID Type Source Tests Collected by Time 1 : duodenitis Tissue DUODENUM SECOND PART BIOPSY SURGICAL PATHOLOGY EXAM Zina Duque MA 10/28/2024 1151 2 : r/o h.pylori Tissue STOMACH ANTRUM BIOPSY SURGICAL PATHOLOGY EXAM Zina Duque MA 10/28/2024 1152 3 : r/o eoe Tissue ESOPHAGUS DISTAL BIOPSY SURGICAL PATHOLOGY EXAM Zina Duque MA 10/28/2024 1153 4 : r/o eoe mid and proximal bx Tissue ESOPHAGUS MID BIOPSY SURGICAL PATHOLOGY EXAM Zina Duque KANIKA 10/28/2024 1154 Procedure Location [facility] External Facility [facility] [address] [place] [facility] [address] Referring Provider Ji Galo MD Procedure Provider Ji Galo MD [facility] EGD Study observation Blanquita rizzo 10-28-2024 Table formatting fro m the original result was not included. Impression Abnormal mucosa in the upper third of the esophagus, middle third of the esophagus and lower third of the esophagus, consistent with eosinophilic esophagitis; performed cold forceps biopsy to rule out eosinophilic esophagitis The stomach appeared normal. Performed random biopsy to rule out H. pylori. Erythematous mucosa in the duodenal bulb; performed cold forceps biopsy Findings Abnormal mucosa in the upper third of the esophagus, middle third of the esophagus and lower third of the esophagus, consistent with eosinophilic esophagitis; performed cold forceps biopsy to rule out eosinophilic esophagitis; EREFS score: edema absent (0), moderate rings (2), mild exudates (1), severe furrows (2), stricture absent (0)total score 5 The stomach appeared normal. Performed random biopsy using biopsy forceps to rule out H. pylori. Erythematous mucosa in the duodenal bulb; performed cold forceps biopsy Recommendation Await pathology results Will start her on Omeprazole 40 mg BID after reviewing biopsy results if positive for EOE Follow-up in the office in 2-3 months Indication Epigastric pain Staff Staff Role Ji Galo MD Proceduralist Medications See Anesthesia Record. Preprocedure A history and physical has been performed, and patient medication allergies have been reviewed. The patient's tolerance of previous anesthesia has been reviewed. The risks and benefits of the procedure and the sedation options and risks were discussed with the patient. All questions were answered and informed consent obtained. Details of the Procedure The patient underwent monitored anesthesia care, which was administered by an anesthesia professional. The patient's blood pressure, ECG, ETCO2, heart rate, level of consciousness, oxygen and respirations were monitored throughout the procedure. The scope was introduced through the mouth and advanced to the second part of the duodenum. Retroflexion was performed in the cardia. The patient experienced no blood loss. The procedure was not difficult. The patient tolerated the procedure well. There were no apparent adverse events. Events Procedure Events Event Event Time ENDO SCOPE IN TIME 10/28/2024 11:50 AM ENDO SCOPE OUT TIME 10/28/2024 11:56 AM Specimens ID Type Source Tests Collected by Time 1 : duodenitis Tissue DUODENUM SECOND PART BIOPSY SURGICAL PATHOLOGY EXAM Zina Duque MA 10/28/2024 1151 2 : r/o h.pylori Tissue STOMACH ANTRUM BIOPSY SURGICAL PATHOLOGY EXAM Zina Duque MA 10/28/2024 1152 3 : r/o eoe Tissue ESOPHAGUS DISTAL BIOPSY SURGICAL PATHOLOGY EXAM Zina Duque MA 10/28/2024 1153 4 : r/o eoe mid and proximal bx Tissue ESOPHAGUS MID BIOPSY SURGICAL PATHOLOGY EXAM Zina Duque MA 10/28/2024 1154 Procedure Location [facility] External Facility [facility] [address] [place] [facility] [address] Referring Provider Ji Galo MD Procedure Provider Ji Galo MD [facility] Work Phone: [facility] Work Phone: No Panel Informationon 10-28 Radiology Study observation (narrative) [facility] Work Phone: POCT Glucoseon 10-28-2024 Glucose [Mass/Vol] 141 mg/dL [facility] Work Phone: Interpretation and review of laboratory results Normal [facility] Work Phone: [facility] Work Phone: Surgical pathology studyon 0 10-28-2024 Surgical pathology study Pathology report.total SEE COMMENT Surgical Pathology Case: [id number] Authorizing Provider: Ji Galo MD Collected: 10/28/2024 1151 Ordering Location: [facility] Received: 10/29/2024 1344 Pathologist: Samantha Cadet MD Specimens: A) - DUODENUM SECOND PART BIOPSY, duodenitis B) - STOMACH ANTRUM BIOPSY, r/o h.pylori C) - ESOPHAGUS DISTAL BIOPSY, r/o eoe D) - ESOPHAGUS MID BIOPSY, r/o eoe mid and proximal bx Path report.final diagnosis SEE COMMENT A. Duodenum, biopsy: - Duodenal mucosa with gastric surface foveolar metaplasia, reactive epithelial changes and features suggestive of an erosion. B. Stomach, biopsy: - Antral mucosa with chronic inactive gastritis. - Corpus mucosa within normal limits. - No evidence of intestinal metaplasia. - See note. NOTE: Immunohistochemical stain for Helicobacter pylori is pending and the result will be reported as an addendum. C. Esophagus, distal, biopsy: Hyperplastic esophageal squamous mucosa with increased intraepithelial eosinophils (maximum of 22 eosinophils per high-power field). D. Esophagus, mid and proximal, biopsy: Hyperplastic esophageal squamous mucosa with increased intraepithelial eosinophils (maximum of 45 eosinophils per high-power field). Laboratory comment By the signature on this report, the individual or group listed as making the Final Interpretation/Diagnos is certifies that they have reviewed this case. Path report.addendum SEE COMMENT This addendum is issued to report result of immunohistochemical stain. Immunohistochemical stain for Helicobacter pylori (with appropriate control) is negative. Addendum electronically signed by Samantha Cadet MD on 11/09/2024 at 10:15 AM Path report.gross observation SEE COMMENT A: Received in formalin, labeled with the patient's name and hospital number and 1, duodenal 2 biopsy, are multiple fragments of stanley, soft tissue aggregating to 0.8 x 0.3 x 0.2 cm. The specimen is submitted in toto in one cassette. [facility] B: Received in formalin, labeled with the patient's name and hospital number and 2, stomach antrum bx, are multiple fragments of stanley, soft tissue aggregating to 1.3 x 0.2 x 0.2 cm. The specimen is submitted in toto in one cassette. [facility] C: Received in formalin, labeled with the patient's name and hospital number and 3, esophagus distal biopsy, are multiple fragments of stanley, soft tissue aggregating to 1.4 x 0.4 x 0.1 cm. The specimen is submitted in toto in one cassette. [facility] D: Received in formalin, labeled with the patient's name and hospital number and 4, mid and proximal biopsy, are multiple fragments of stanley, soft tissue aggregating to 1.2 x 0.4 x 0.1 cm. The specimen is submitted in toto in 2 cassettes. [facility] AP ASR DISCLAIMER One or more of the reagents used to perform assays on this specimen MAY have contained components considered to be analyte specific reagents (ASR's). ASR's have not been cleared or approved by the U.S. Food and Drug Administration. These assays were developed and their performance characteristics determined by the Department of Pathology at [facility]. The FDA does not require this test to go through premarket FDA review. This test is used for clinical purposes. It should not be regarded as investigational or for research. This laboratory is certified under the Clinical Laboratory Improvement Amendments (CLIA) as qualified to perform high complexity clinical laboratory testing. The assays were performed with appropriate positive and negative controls which stained appropriately. Normal [facility] Basic metabolic 2000 panelon 08-17-2024 Anion gap [Moles/Vol] 12 mmol/L Normal 10-20 [facility] Comment on above: Performed By: #### 3 4529-8 #### TRISTEN Castañeda ([id number]) [facility] ([facility]) [id number] [place] [address] 21406 Calcium [Mass/Vol] 9.0 mg/dL Normal 8.6-10.3 [facility] Comment on above: Performed By: #### 3 4529-8 #### TRISTEN CHRISTOPHER L ([id number]) [facility] ([facility]) [id number] [place] [address] 85489 Chloride [Moles/Vol] 106 mmol/L Normal 98-107 [facility] Comment on above: Performed By: #### 3 4529-8 #### TRISTEN GERMANMOTZER L ([id number]) [facility] ([facility]) [id number] [place] [address] 51542 CO2 [Moles/Vol] 28 mmol/L Normal 21-32 [facility] Comment on above: Performed By: #### 3 4529-8 #### TRISTEN GERMANMOTZPILI L ([id number]) [facility] ([facility]) [id number] [place] [address] 82064 Creatinine [Mass/Vol] 0.82 mg/dL Normal 0.50-1.05 [facility] Comment on above: Performed By: #### 3 4529-8 #### TRISTEN Castañeda ([id number]) [facility] ([facility]) [address] [place] [address] Glomerular filtration rate/1.73 sq M.predicted 76 mL/min/1.73m*2 Normal >60 [facility] Comment on above: Result Comment: Calc ulations of estimated GFR are performed using the 2020 CKD-EPI Study Refit equation without the race variable for the IDMS-Traceable creatinine methods. https://jasn.asnjournals.org/content/early//ASN.80341 15934 Performed By: #### 3 4529-8 #### TRISTEN Castañeda ([id number]) [facility] ([facility]) [id number] [place] [address] 35595 Glucose [Mass/Vol] 125 mg/dL High 74-99 [facility] Comment on above: Performed By: #### 3 4529-8 #### TRISTEN CHRISTOPHER L ([id number]) [facility] ([facility]) [id number] [place] [address] 67800 Potassium [Moles/Vol] 4.5 mmol/L Normal 3.5-5.3 [facility] Comment on above: Performed By: #### 3 4529-8 #### TRISTEN CHRISTOPHER L ([id number]) [facility] ([facility]) [id number] [place] [address] 94216 Sodium [Moles/Vol] 141 mmol/L Normal 136-145 [facility] Comment on above: Performed By: #### 3 4529-8 #### TRISTEN CHRISTOPHER L ([id number]) [facility] ([facility]) [id number] [place] [address] 78945 Urea nitrogen [Mass/Vol] 16 mg/dL Normal 6-23 [facility] Comment on above: Performed By: #### 3 4529-8 #### TRISTEN CHRISTOPHER L ([id number]) [facility] ([facility]) [id number] [place] [address] 81237 HbA1c (Bld) [Mass fraction]o n 08-17-2024 Average glucose Estimated from glycated hemoglobin (Bld) [Mass/Vol] 151 mg/dL Normal Not Established [facility] Comment on above: Order Comment: Diagn osis of Bpahhzxv-LqukuhKeu-Vqorurhv: < or = 5.6%Increased risk for developing diabetes: 5.7-6.4%Diagnostic of diabetes: > or = 6.5% Performed By: #### 3 4532-2 #### JORGE SMITH ([id number]) [facility] ([facility]) [address] [place] [address] Hemoglobin A1c/Hemoglobin.to jacklyn 08-17-2024 HbA1c (Bld) [Mass fraction] 6.9 % High See comment [facility] Comment on above: Order Comment: Diagn osis of Drqkctvl-CwyosfRjw-Tfvfxyir: < or = 5.6%Increased risk for developing diabetes: 5.7-6.4%Diagnostic of diabetes: > or = 6.5% Performed By: #### 3 4532-2 #### JORGE SMITH ([id number]) [facility] | [facility] ([facility]) [address] [place] [address] TSH WITH REFLEX TO FREE T4 I F ABNORMALon 08-17-2024 TSH Qn 2.19 m[IU]/L Normal 0.44-3.98 [facility] Comment on above: Order Comment: TSH t esting is performed using different testing methodology at [facility] than at other [facility]. Direct result comparisons should only be made within the same method. Performed By: #### 3 4532-2 #### JORGE SMITH ([id number]) [facility] | [facility] ([facility]) [address] [place] [address] 36on 07-20-2024 36 I left a message for the patient of the new prescription sent into her pharmacy. Normal [employer] [facility] 36 New antibiotic sent to pharmacy on file. [facility] [address] updated. Normal [facility] 36 Name of caller: Tristen Contact phone number: [phone] Relationship to Patient: patient Provider: Dr. Tan Practice: [facility] Chief Complaint/Reason for Call: Patient called in regarding medication sulfamethoxazole-trime thoprim (Bactrim DS) 800-160 MG tablet. States she is highly allregic to sulfa and will need alternative medication sent in. Pharmacy Verified. Please Advise Best time of day caller can be reached: any Patient advised that office/PCP has 24-48 business hours to return their call: No [facility] 36 Message released to patient as written. Tahmina Faith MA 07/20/2024 10:31 AM EDT Back to Top Called and left message for patient to call us back for results Darnell Tan MD 07/20/2024 9:54 AM EDT Please call pt and let her know that the urine culture was positive. She has a UTI. I have prescribed her Bactrim. She can pick it up from the pharmacy. Thank you. Patient's further questions if applicable: n/a Were all questions from office addressed or relayed to the patient from encounter: Yes [facility] Office Visiton 07-15-2024 Follow-up visit [id number] Tristen Gomez 1950 F Date Provider Department Center 07/15/2024 [id number]-UOFVMOJDARNELL TAN [facility] U[facility] None Family History Problem Relation Age of Onset Heart attack Mother Hypertension Mother Diabetes Mother Stroke Mother Lung cancer Father Diabetes type II Mother Colon cancer Neg Hx Family Status - Relation Status Age at Mother Father Neg Hx Level of Service:25966 [place] OFFICE/OUTPATIENT ESTABLISHED HIGH MDM 40 MIN Reason for Visit and Comments: UTI [[id number]] - chronic Normal [facility] Progress Noteon 07-15-2024 Progress Note HPI Chief Complaint Patient presents with UTI chronic 73 y.o. female Last seen approximately 2 years ago Patient with recurrent urinary tract infections Tried suppressive therapy Did well while on antibiotics The symptoms came back after she stopped antibiotics She stated symptomatic urinary tract infections with dysuria and irritative bladder symptoms The patient is few years after ROBOTIC ASSISTED ABDOMINAL SACROCOLPOPEXY. BILATERAL SALPINGO-OOPHORECTOMY POSTERIOR REPAIR. SYNTHETIC MID URETHRAL SLING. CYSTOSCOPY. Patient is doing well Could not afford Premarin No more prolapse She is able to empty her bladder without difficulties However, the patient complains of recurrent urinary tract infections. She stated that she is having at least 1 [address] Palma started her on cephalexin 250 mg daily Since she started the medication, the patient had no urinary tract infection However, she is concerned about possible side effects of long-term antibiotic use Also, the patient complains of urinary incontinence Not a lot, only drops However it smells bad and it bothers her She denies urgency and urgency urinary incontinence. Frequency: No, urinates every 3 hours during the day Nocturia: Yes, 1 x per night Enuresis: No Pad use: none Feels like she empties her bladder well. Denies ball/bulge in thevagina. No macroscopic hematuria. Sexual Activity: No; Dyspareunia: N/A Constipation: No Other bowel problems: None. Past Surgical History: Procedure Laterality Date ANKLE SURGERY Left ANKLE SURGERY BICEPS TENDON REPAIR BLADDER SURGERY BLADDER SURGERY 06/09/2019 ROBOTIC ASSISTED ABDOMINAL SACROCOLPOPEXY BILATERAL SALPINGO-OOPHORECTOMY, POSTERIOR REPAIR,SYNTHETIC MID URETHRAL SLING,CYSTOSCOPY CHOLECYSTECTOMY 1985 CHOLECYSTECTOMY COLONOSCOPY COLONOSCOPY 2016 POLYPS COLONOSCOPY 06/08/2021 SHOULDER SURGERY TOTAL KNEE ARTHROPLASTY Right 01/20/2018 TOTAL VAGINAL HYSTERECTOMY 1987 TUMOR REMOVAL behind right ear WRIST SURGERY WRIST SURGERY Left 09/24/2018 Past Medical History: Diagnosis Date Arthritis Diabetes (HCC) Diabetes mellitus (HCC) GERD (gastroesophageal reflux disease) Hepatic hemangioma mri 03/04/2015: Bilobed hepatic hemangioma 7.9 cm Hepatic hemangioma History of blood transfusion History of colon polyps Current Outpatient Medications Medication Sig Dispense Refill carboxymethylcellulose (Refresh Plus) 0.5 % ophthalmic solution 1 drop. chlorhexidine (Peridex) 0.12 % solution cholecalciferol (Vitamin D-3) 25 MCG (1000 UT) capsule Take 25 mcg by mouth in the morning. Cranberry-Vitamin C (Cranberry Concentrate/VitaminC) 09105-311 MG capsule Take by mouth. cyanocobalamin (Vitamin B-12) 1000 MCG tablet Take 1,000 mcg by mouth in the morning. enoxaparin (Lovenox) 40 MG/0.4ML solution prefilled syringe ferrous sulfate 325 (65 Fe) MG EC tablet Take 1 tablet twice daily. Do not crush, chew, or split. FLUoxetine HCl, PMDD, 20 MG tablet Take 20 mg by mouth in the morning. gabapentin (Neurontin) 300 MG capsule Take 600 mg by mouth in the morning. glucose blood (MorphoSys Ultra Test) test strip Inject 1 each into the skin. insulin degludec (Tresiba) 100 UNIT/ML injection Inject 35 Units under the skin. Ivabradine HCl 7.5 MG tablet Take by mouth. Lantus SoloStar 100 UNIT/ML pen losartan (Cozaar) 50 MG tablet Take 50 mg by mouth in the morning. metoprolol tartrate (Lopressor) 25 MG tablet Take 25 mg by mouth in the morning and 25 mg in the evening. ondansetron (Zofran) 4 MG tablet pregabalin (Lyrica) 100 MG capsule probenecid (Benemid) 500 MG tablet SITagliptin (Januvia) 100 MG tablet Take by mouth. No current facility-administered medications for this visit. OB History No obstetric history on file. Allergies Allergen Reactions Baclofen Other Reaction(s): nightmares Aspirin GI bleeding, Nausea And Vomiting, Unknown and Other Ciprofloxacin Nausea And Vomiting and Rash Cyclobenzaprine Nausea And Vomiting, Other and Unknown Mood changes - irritable Empagliflozin Other Other reaction(s): Unknown Irritability Erythromycin Nausea Only, Cough, Other and Unknown severe stomach pain Carbidopa W-Levodopa Unknown Cats Claw (Uncaria Tomentosa) Hydrocodone-Acetaminop hen Other Acetaminophen Nausea And Vomiting and Unknown Buprenorphine Rash Capsaicin Nausea And Vomiting and Rash Carbidopa Nausea And Vomiting and Rash Carbidopa-Levodopa Other and Unknown Nightmares Chlorhexidine Rash Gluten Meal Nausea Only Wound Dressing Adhesive Rash Physical Exam Assessment: Diagnosis Plan 1. Recurrent UTI POCT urinalysis dipstick manually resulted Urine culture Complete Urinalysis methenamine hippurate (Hiprex) 1 g tablet estradiol (Estrace) 0.1 MG/GM vaginal cream I spent a total time of 40 minutes caring for this patient today. The patient was seen and a kelsey (more content not included)... Normal [facility] Urinalysis macro (dipstick) panel (U)on 07-15-2024 Bilirubin, UA Negative [facility] Blood, UA Negative [facility] Glucose, UA Negative [facility] Interpretation and review of laboratory results Abnormal [facility] Ketones, POC (mg/dL) Negative [facility] Leukocytes, UA Moderate [facility] Nitrite, UA Positive [facility] pH, UA 5.5 [facility] Protein, UA Negative [facility] Spec Grav, UA 1.025 [facility]2 [facility] CBC W Auto Differential pane l (Bld)on 06-08-2024 Basophils (Bld) [#/Vol] 0.05 x10*3/uL Normal 0.00-0.10 [facility] Comment on above: Performed By: #### 3 4529-8 #### TRISTEN Castañeda ([id number]) [facility] ([facility]) [address] [place] [address] 19857 Basophils/100 WBC (Bld) 0.6 % Normal 0.0-2.0 [facility] Comment on above: Performed By: #### 3 4529-8 #### TRISTEN Castañeda ([id number]) [facility] ([facility]) [address] [place] [address] 28105 Eosinophils (Bld) [#/Vol] 0.23 x10*3/uL Normal 0.00-0.40 [facility] Comment on above: Performed By: #### 3 4529-8 #### TRISTEN Castañeda ([id number]) [facility] ([facility]) [address] [place] [address] 09043 Eosinophils/100 WBC (Bld) 2.9 % Normal 0.0-6.0 [facility] Comment on above: Performed By: #### 3 4529-8 #### TRISTEN Castañeda ([id number]) [facility] ([facility]) [address] [place] [address] 77539 Erythrocyte distribution width (RBC) [Ratio] 13.6 % Normal 11.5-14.5 [facility] Comment on above: Performed By: #### 3 4529-8 #### TRISTEN Castañeda ([id number]) [facility] ([facility]) [address] [place] [address] 31463 Hematocrit (Bld) [Volume fraction] 38.2 % Normal 36.0-46.0 [facility] Comment on above: Performed By: #### 3 4529-8 #### TRISTEN Castañeda ([id number]) [facility] ([facility]) [id number] [place] [address] 64230 Hemoglobin (Bld) [Mass/Vol] 12.2 g/dL Normal 12.0-16.0 [facility] Comment on above: Performed By: #### 3 4529-8 #### TRISTEN Castañeda ([id number]) [facility] ([facility]) [id number] [place] [address] 42108 Immature granulocytes (Bld) [#/Vol] 0.02 x10*3/uL Normal 0.00-0.50 [facility] Comment on above: Performed By: #### 3 4529-8 #### TRISTEN Castañeda ([id number]) [facility] ([facility]) [address] [place] [address] 58936 Immature granulocytes/100 WBC (Bld) 0.3 % Normal 0.0-0.9 [facility] Comment on above: Result Comment: Suzie ture Granulocyte Count (IG) includes promyelocytes, myelocytes and metamyelocytes but does not include bands. Percent differential counts (%) should be interpreted in the context of the absolute cell counts (cells/UL). Performed By: #### 3 4529-8 #### TRISTEN Castañeda ([id number]) [facility] ([facility]) [address] [place] [address] 86368 Lymphocytes (Bld) [#/Vol] 2.40 x10*3/uL Normal 0.80-3.00 [facility] Comment on above: Performed By: #### 3 4529-8 #### TRISTEN Castañeda ([id number]) [facility] ([facility]) [id number] [place] [address] 57553 Lymphocytes/100 WBC (Bld) 30.5 % Normal 13.0-44.0 [facility] Comment on above: Performed By: #### 3 4529-8 #### TRISTEN Castañeda ([id number]) [facility] ([facility]) [address] [place] [address] MCH (RBC) [Entitic mass] 30.3 pg Normal 26.0-34.0 [facility] Comment on above: Performed By: #### 3 4529-8 #### TRISTEN Castañeda ([id number]) [facility] ([facility]) [address] [place] [address] MCHC (RBC) [Mass/Vol] 31.9 g/dL Low 32.0-36.0 [facility] Comment on above: Performed By: #### 3 4529-8 #### TRISTEN Castañeda ([id number]) [facility] ([facility]) [id number] [place] [address] 97389 MCV (RBC) [Entitic vol] 95 fL Normal 80-100 [facility] Comment on above: Performed By: #### 3 4529-8 #### TRISTEN Castañeda ([id number]) [facility] ([facility]) [id number] [place] [address] 31529 Monocytes (Bld) [#/Vol] 0.51 x10*3/uL Normal 0.05-0.80 [facility] Comment on above: Performed By: #### 3 4529-8 #### TRISTEN Castañeda ([id number]) [facility] ([facility]) [id number] [place] [address] 07001 Monocytes/100 WBC (Bld) 6.5 % Normal 2.0-10.0 [facility] Comment on above: Performed By: #### 3 4529-8 #### TRISTEN Castañeda ([id number]) [facility] ([facility]) [address] [place] [address] 39761 Neutrophils (Bld) [#/Vol] 4.66 x10*3/uL Normal 1.60-5.50 [facility] Comment on above: Result Comment: Perc ent differential counts (%) should be interpreted in the context of the absolute cell counts (cells/uL). Performed By: #### 3 4529-8 #### TRISTEN CHRISTOPHER L ([id number]) [facility] ([facility]) [id number] [place] [address] 88262 Neutrophils/100 WBC (Bld) 59.2 % Normal 40.0-80.0 [facility] Comment on above: Performed By: #### 3 4529-8 #### TRISTEN Castañeda ([id number]) [facility] ([facility]) [address] [place] [address] 79285 Nucleated RBC/100 WBC (Bld) [Ratio] 0.0 /100 WBCs Normal 0.0-0.0 [facility] Comment on above: Performed By: #### 3 4529-8 #### TRISTEN Castañeda ([id number]) [facility] ([facility]) [address] [place] [address] 30069 Platelets (Bld) [#/Vol] 330 x10*3/uL Normal 150-450 [facility] Comment on above: Performed By: #### 3 4529-8 #### TRISTEN Castañeda ([id number]) [facility] ([facility]) [address] [place] [address] 89266 RBC (Bld) [#/Vol] 4.03 x10*6/uL Normal 4.00-5.20 [facility] Comment on above: Performed By: #### 3 4529-8 #### TRISTEN Castañeda ([id number]) [facility] ([facility]) [address] [place] [address] 03454 WBC (Bld) [#/Vol] 7.9 x10*3/uL Normal 4.4-11.3 [facility] Comment on above: Performed By: #### 3 4529-8 #### TRISTEN Castañeda ([id number]) [facility] ([facility]) [address] [place] [address] 03730 Calcidiolon 06-08-2024 25-hydroxyvitamin D3 [Mass/Vol] 44 ng/mL Normal 30-100 [facility] Comment on above: Order Comment: The A PTT is no longer used for monitoring Unfractionated Heparin Therapy. For monitoring Heparin Therapy, use the Heparin Assay. Performed By: #### 3 4529-8 #### TRISTEN Castañeda ([id number]) [facility] ([facility]) [address] [place] [address] 73167 Cobalaminson 06-08-2024 Cobalamin (Vitamin B12) [Mass/Vol] 1252 pg/mL High 211-911 [facility] Comment on above: Performed By: #### 3 4529-8 #### TRISTEN Castañeda ([id number]) [facility] ([facility]) [address] [place] [address] Comprehensive metabolic 2000 panelon 06-08-2024 Albumin BCP dye [Mass/Vol] 3.7 g/dL Normal 3.4-5.0 [facility] Comment on above: Performed By: #### 3 4529-8 #### TRISTEN Castañeda ([id number]) [facility] ([facility]) [id number] [place] [address] 48658 ALP [Catalytic activity/Vol] 105 U/L Normal 33-136 [facility] Comment on above: Performed By: #### 3 4529-8 #### TRISTEN Castañeda ([id number]) [facility] ([facility]) [id number] [place] [address] 27333 ALT With P-5'-P [Catalytic activity/Vol] 15 U/L Normal 7-45 [facility] Comment on above: Result Comment: Galina ents treated with Sulfasalazine may generate falsely decreased results for ALT. Performed By: #### 3 4529-8 #### TRISTEN Castañeda ([id number]) [facility] ([facility]) [id number] [place] [address] 86161 Anion gap [Moles/Vol] 14 mmol/L Normal 10-20 [facility] Comment on above: Performed By: #### 3 4529-8 #### TRISTEN Castañeda ([id number]) [facility] ([facility]) [address] [place] [address] AST With P-5'-P [Catalytic activity/Vol] 19 U/L Normal 9-39 [facility] Comment on above: Performed By: #### 3 4529-8 #### TRISTEN Castañeda ([id number]) [facility] ([facility]) [id number] [place] [address] 66911 Bilirubin [Mass/Vol] 0.3 mg/dL Normal 0.0-1.2 [facility] Comment on above: Performed By: #### 3 4529-8 #### TRISTEN CHRISTOPHER L ([id number]) [facility] ([facility]) [address] [place] [address] Calcium [Mass/Vol] 9.3 mg/dL Normal 8.6-10.6 [facility] Comment on above: Performed By: #### 3 4529-8 #### TRISTEN TORRESTZER L ([id number]) [facility] ([facility]) [address] [place] [address] Chloride [Moles/Vol] 104 mmol/L Normal 98-107 [facility] Comment on above: Performed By: #### 3 4529-8 #### TRISTEN GERMANMOTZER L ([id number]) [facility] ([facility]) [address] [place] [address] CO2 [Moles/Vol] 26 mmol/L Normal 21-32 [facility] Comment on above: Performed By: #### 3 4529-8 #### TRISTEN CHRISTOPHER L ([id number]) [facility] ([facility]) [address] [place] [address] Creatinine [Mass/Vol] 0.79 mg/dL Normal 0.50-1.05 [facility] Comment on above: Performed By: #### 3 4529-8 #### TRISTEN TORRESTZER L ([id number]) [facility] ([facility]) [id number] [place] [address] 83281 Glomerular filtration rate/1.73 sq M.predicted 79 mL/min/1.73m*2 Normal >60 [facility] Comment on above: Result Comment: Calc ulations of estimated GFR are performed using the 2020 CKD-EPI Study Refit equation without the race variable for the IDMS-Traceable creatinine methods. https://jasn.asnjournals.org/content//ASN.57558 63647 Performed By: #### 3 4529-8 #### TRISTEN Castañeda ([id number]) [facility] ([facility]) [address] [place] [address] Glucose [Mass/Vol] 140 mg/dL High 74-99 [facility] Comment on above: Performed By: #### 3 4529-8 #### TRISTEN Castañeda ([id number]) [facility] ([facility]) [id number] [place] [address] 88355 Potassium [Moles/Vol] 4.7 mmol/L Normal 3.5-5.3 [facility] Comment on above: Performed By: #### 3 4529-8 #### TRISTEN Castañeda ([id number]) [facility] ([facility]) [address] [place] [address] 33349 Protein [Mass/Vol] 6.8 g/dL Normal 6.4-8.2 [facility] Comment on above: Performed By: #### 3 4529-8 #### TRISTEN Castañeda ([id number]) [facility] ([facility]) [address] [place] [address] 58605 Sodium [Moles/Vol] 139 mmol/L Normal 136-145 [facility] Comment on above: Performed By: #### 3 4529-8 #### TRISTEN Castañeda ([id number]) [facility] ([facility]) [address] [place] [address] 21907 Urea nitrogen [Mass/Vol] 15 mg/dL Normal 6-23 [facility] Comment on above: Performed By: #### 3 4529-8 #### TRISTEN Castañeda ([id number]) [facility] ([facility]) [address] [place] [address] 65419 Ferritinon 06-08-2024 Ferritin [Mass/Vol] 126 ng/mL Normal 8-150 [facility] Comment on above: Performed By: #### 3 4529-8 #### TRISTEN Castañeda ([id number]) [facility] ([facility]) [id number] [place] [address] 65799 Iron and Iron binding capaci ty panelon 06-08-2024 Iron [Mass/Vol] 97 ug/dL Normal 35-150 [facility] Comment on above: Performed By: #### 3 4529-8 #### TRISTEN Castañeda ([id number]) [facility] ([facility]) [address] [place] [address] 90065 Iron binding capacity [Mass/Vol] 333 ug/dL Normal 240-445 [facility] Comment on above: Performed By: #### 3 4529-8 #### TRISTEN Castañeda ([id number]) [facility] ([facility]) [address] [place] [address] 66861 Iron binding capacity.unsaturated [Mass/Vol] 236 ug/dL Normal 110-370 [facility] Comment on above: Performed By: #### 3 4529-8 #### TIRSTEN Castañeda ([id number]) [facility] ([facility]) [address] [place] [address] 12352 Iron saturation [Mass fraction] 29 % Normal 25-45 [facility] Comment on above: Performed By: #### 3 4529-8 #### TRISTEN Castañeda ([id number]) [facility] ([facility]) [address] [place] [address] 26165 TSH WITH REFLEX TO FREE T4 I F ABNORMALon 06-08-2024 TSH Qn 1.62 m[IU]/L Normal 0.44-3.98 [facility] Comment on above: Order Comment: The A PTT is no longer used for monitoring Unfractionated Heparin Therapy. For monitoring Heparin Therapy, use the Heparin Assay. Performed By: #### 3 4529-8 #### TRISTEN Castañeda ([id number]) [facility] ([facility]) [address] [place] [address] 96089 Urinalysis complete panel (U )on 06-08-2024 Appearance (U) Clear Normal Clear [facility] Comment on above: Performed By: #### 3 4529-8 #### TRISTEN Castañeda ([id number]) [facility] ([facility]) [address] [place] [address] 35325 Bilirubin (U) [Mass/Vol] Negative Normal NEGATIVE [facility] Comment on above: Performed By: #### 3 4529-8 #### TRISTEN Castañeda ([id number]) [facility] ([facility]) [address] [place] [address] 80612 Color (U) Light-Yellow Normal Light-Yellow , Yellow, Dark-Yellow [facility] Comment on above: Performed By: #### 3 4529-8 #### TRISTEN Castañeda ([id number]) [facility] ([facility]) [address] [place] [address] 96281 Glucose Auto test strip (U) [Mass/Vol] Normal Normal Normal [facility] Comment on above: Performed By: #### 3 4529-8 #### TRISTEN Castañeda ([id number]) [facility] ([facility]) [address] [place] [address] 85982 Ketones (U) [Mass/Vol] Negative Normal NEGATIVE [facility] Comment on above: Performed By: #### 3 4529-8 #### TRISTEN Castañeda ([id number]) [facility] ([facility]) [address] [place] [address] 29697 Leukocyte esterase Auto test strip Ql (U) 250 Peter/???L Abnormal NEGATIVE [facility] Comment on above: Performed By: #### 3 4529-8 #### TRISTEN Castañeda ([id number]) [facility] ([facility]) [address] [place] [address] 04873 Nitrite Auto test strip Ql (U) Negative Normal NEGATIVE [facility] Comment on above: Performed By: #### 3 4529-8 #### TRISTEN Castañeda ([id number]) [facility] ([facility]) [address] [place] [address] 16802 pH (U) 5.5 [pH] Normal 5.0, 5.5, 6.0, 6.5, 7.0, 7.5, 8.0 [facility] Comment on above: Performed By: #### 3 4529-8 #### TRISTEN Castañeda ([id number]) [facility] ([facility]) [address] [place] [address] 08677 Protein (U) [Mass/Vol] Negative Normal NEGAT SUJIT, 10 (TRACE), 20 (TRACE) [facility] Comment on above: Performed By: #### 3 4529-8 #### TRISTEN Castañeda ([id number]) [facility] ([facility]) [address] [place] [address] 52837 RBC (U) [#/Vol] Negative Normal NEGATIVE [facility] Comment on above: Performed By: #### 3 4529-8 #### TRISTEN Castañeda ([id number]) [facility] ([facility]) [address] [place] [address] 16991 Specific gravity (U) [Rel density] 1.008 Normal 1.005-1.035 [facility] Comment on above: Performed By: #### 3 4529-8 #### TRISTEN Castañeda ([id number]) [facility] ([facility]) [address] [place] [address] 95267 Urobilinogen (U) [Mass/Vol] Normal Normal Normal [facility] Comment on above: Performed By: #### 3 4529-8 #### TRISTEN Castañeda ([id number]) [facility] ([facility]) [address] [place] [address] 47399 Urinalysis microscopic panel Auto Ql (U)on 06-08-2024 Bacteria Auto (Urine sed) [#/Area] 1+ /HPF Abnormal NONE SEEN [facility] Comment on above: Performed By: #### 3 4529-8 #### TRISTEN Castañeda ([id number]) [facility] ([facility]) [address] [place] [address] 68801 Epithelial cells.squamous Auto (Urine sed) [#/Area] 1-9 (SPARSE) Normal Reference range not established. [facility] Comment on above: Performed By: #### 3 4529-8 #### TRISTEN Castañeda ([id number]) [facility] ([facility]) [address] [place] [address] RBC Auto (Urine sed) [#/Area] 1-2 Normal NONE, 1-2, 3-5 [facility] Comment on above: Performed By: #### 3 4529-8 #### TRISTEN Castañeda ([id number]) [facility] ([facility]) [address] [place] [address] 41978 WBC Auto (Urine sed) [#/Area] 6-10 Abnormal 1-5, NONE [facility] Comment on above: Performed By: #### 3 4529-8 #### TRISTEN Castañeda ([id number]) [facility] ([facility]) [address] [place], [place] [address] No Panel Informationon 05-27 Unusual P axis, possible ectopic atrial rhythm LAFB Rate [address]-T wave changes [facility] Work Phone: [facility] Work Phone: Bacteria identifiedon 2023 Bacteria identified Cx Nom (U) Test: Urine Culture Specimen Source: Clean Catch/Voided Specimen Type: Urine Specimen Date: 05/18/2024 1013 Result Date: 05/19/20242129 Result Status: Final result Abnormal: No Resulting Lab: [facility] [address] [place] [address] CULTURE No significant growth Normal [facility] Comment on above: Performed By: #### 2 4321-2 #### TRISTEN Castañeda ([id number]) [facility] ([facility]) [address] [place] [address] 65851 Urinalysis complete panel (U )on 05-14-2024 Appearance (U) Ex.Turbid Normal Clear [facility] Comment on above: Performed By: #### 2 4321-2 #### TRISTEN Castañeda ([id number]) [facility] ([facility]) [address] [place], [place] [address] Bilirubin (U) [Mass/Vol] Negative Normal NEGATIVE [facility] Comment on above: Performed By: #### 2 4321-2 #### TRISTEN Castañeda ([id number]) [facility] ([facility]) [address] [place] [id number] Color (U) Light-Leon Normal Light-Yellow , Yellow, Dark-Yellow [facility] Comment on above: Performed By: #### 2 4321-2 #### TRISTEN Castañeda ([id number]) [facility] ([facility]) [address] [place] [id number] Glucose Auto test strip (U) [Mass/Vol] Normal Normal Normal [facility] Comment on above: Performed By: #### 2 4321-2 #### TRISETN Castañeda ([id number]) [facility] ([facility]) [address] [place] [id number] Ketones (U) [Mass/Vol] Negative Normal NEGATIVE [facility] Comment on above: Performed By: #### 2 4321-2 #### TRISTEN Castañeda ([id number]) [facility] ([facility]) [address] [place] [address] 27060 Leukocyte esterase Auto test strip Ql (U) 500 Peter/???L Abnormal NEGATIVE [facility] Comment on above: Performed By: #### 2 4321-2 #### TRISTEN Castañeda ([id number]) [facility] ([facility]) [address] [place] [address] 37466 Nitrite Auto test strip Ql (U) Negative Normal NEGATIVE [facility] Comment on above: Performed By: #### 2 4321-2 #### TRISTEN Castañeda ([id number]) [facility] ([facility]) [address] [place] [address] 21067 pH (U) 5.5 [pH] Normal 5.0, 5.5, 6.0, 6.5, 7.0, 7.5, 8.0 [facility] Comment on above: Performed By: #### 2 4321-2 #### TRISTEN Castañeda ([id number]) [facility] ([facility]) [address] [place] [address] 78756 Protein (U) [Mass/Vol] Negative Normal NEGAT SUJIT, 10 (TRACE), 20 (TRACE) [facility] Comment on above: Performed By: #### 2 4321-2 #### TRISTEN Castañeda ([id number]) [facility] ([facility]) [address] [place] [address] 26007 RBC (U) [#/Vol] Negative Normal NEGATIVE [facility] Comment on above: Performed By: #### 2 4321-2 #### TRISTEN Castañeda ([id number]) [facility] ([facility]) [address] [place] [address] 63729 Specific gravity (U) [Rel density] 1.017 Normal 1.005-1.035 [facility] Comment on above: Performed By: #### 2 4321-2 #### TRISTEN Castañeda ([id number]) [facility] ([facility]) [address] [place] [address] 53829 Urobilinogen (U) [Mass/Vol] Normal Normal Normal [facility] Comment on above: Performed By: #### 2 4321-2 #### TRISTEN Castañeda ([id number]) [facility] ([facility]) [address] [place] [address] 24957 Urinalysis microscopic panel Auto Ql (U)on 05-14-2024 Bacteria Auto (Urine sed) [#/Area] 1+ /HPF Abnormal NONE SEEN [facility] Comment on above: Performed By: #### 2 4321-2 #### TRISTEN Castañeda ([id number]) [facility] ([facility]) [address] [place] [address] 11630 Calcium oxalate crystals Computer assisted (U) [#/Area] 4+ /HPF Abnormal NONE, 1+ [facility] Comment on above: Performed By: #### 2 4321-2 #### TRISTEN Castañeda ([id number]) [facility] ([facility]) [address] [place] [address] 09025 Epithelial cells.squamous Auto (Urine sed) [#/Area] 1-9 (SPARSE) Normal Reference range not established. [facility] Comment on above: Performed By: #### 2 4321-2 #### TRISTEN Castañeda ([id number]) [facility] ([facility]) [id number] [place] [address] 11374 Leukocyte clumps Auto (Urine sed) [#/Area] FEW Normal Reference range not established. [facility] Comment on above: Performed By: #### 2 4321-2 #### TRISTEN Castañeda ([id number]) [facility] ([facility]) [id number] [place] [address] 14288 Mucus Auto (Urine sed) [#/Area] 1+ /LPF Normal Reference range not established. [facility] Comment on above: Performed By: #### 2 4321-2 #### TRISTEN Castañeda ([id number]) [facility] ([facility]) [address] [place] [address] 00283 RBC Auto (Urine sed) [#/Area] 6-10 Abnormal NONE, 1-2, 3-5 [facility] Comment on above: Performed By: #### 2 4321-2 #### TRISTEN Castañeda ([id number]) [facility] ([facility]) [address] [place] [address] 07949 Transitional cells Computer assisted (U) [#/Area] 6-10 (2+) Normal Reference range not established. [facility] Comment on above: Performed By: #### 2 4321-2 #### TRISTEN Castañeda ([id number]) [facility] ([facility]) [id number] [place] [address] 25197 WBC Auto (Urine sed) [#/Area] >50 Abnormal 1-5, NONE [facility] Comment on above: Performed By: #### 2 4321-2 #### TRISTEN Castañeda ([id number]) [facility] ([facility]) [id number] [place] [address] 77826 CBC panel Auto (Bld)on 05-11 Erythrocyte distribution width (RBC) [Ratio] 12.5 % Normal 11.5-14.5 [facility] Comment on above: Performed By: #### 2 4321-2 #### TRISTEN Castañeda ([id number]) [facility] ([facility]) [address] [place] [address] 06625 Hematocrit (Bld) [Volume fraction] 34.1 % Low 36.0-46.0 [facility] Comment on above: Performed By: #### 2 4321-2 #### TRISTEN Castañeda ([id number]) [facility] ([facility]) [address] [place] [address] 61186 Hemoglobin (Bld) [Mass/Vol] 10.8 g/dL Low 12.0-16.0 [facility] Comment on above: Performed By: #### 2 4321-2 #### TRISTEN Castañeda ([id number]) [facility] ([facility]) [address] [place] [address] 69836 MCH (RBC) [Entitic mass] 30.5 pg Normal 26.0-34.0 [facility] Comment on above: Performed By: #### 2 4321-2 #### TRISTEN Castañeda ([id number]) [facility] ([facility]) [address] [place] [address] 08446 MCHC (RBC) [Mass/Vol] 31.7 g/dL Low 32.0-36.0 [facility] Comment on above: Performed By: #### 2 4321-2 #### TRISTEN Castañeda ([id number]) [facility] ([facility]) [address] [place] [address] 34551 MCV (RBC) [Entitic vol] 96 fL Normal 80-100 [facility] Comment on above: Performed By: #### 2 4321-2 #### TRISTEN Castañeda ([id number]) [facility] ([facility]) [address] [place] [address] 57769 Nucleated RBC/100 WBC (Bld) [Ratio] 0.0 /100 WBCs Normal 0.0-0.0 [facility] Comment on above: Performed By: #### 2 4321-2 #### TRISTEN Castañeda ([id number]) [facility] ([facility]) [id number] [place] [address] 09702 Platelets (Bld) [#/Vol] 515 x10*3/uL High 150-450 [facility] Comment on above: Performed By: #### 2 4321-2 #### TRISTEN Castañeda ([id number]) [facility] ([facility]) [address] [place] [address] 03879 RBC (Bld) [#/Vol] 3.54 x10*6/uL Low 4.00-5.20 [facility] Comment on above: Performed By: #### 2 4321-2 #### TRISTEN Castañeda ([id number]) [facility] ([facility]) [address] [place] [address] 10217 WBC (Bld) [#/Vol] 8.7 x10*3/uL Normal 4.4-11.3 [facility] Comment on above: Performed By: #### 2 4321-2 #### TRISTEN Castañeda ([id number]) [facility] ([facility]) [address] [place] [address] 53683 Ferritinon 05-08-2024 Ferritin [Mass/Vol] 204 ng/mL High 8-150 [facility] Comment on above: Performed By: #### 2 4321-2 #### TRISTEN Castañeda ([id number]) [facility] ([facility]) [address] [place] [address] 11051 Iron and Iron binding capaci ty panelon 05-08-2024 Iron [Mass/Vol] 11 ug/dL Low 35-150 [facility] Comment on above: Performed By: #### 2 4321-2 #### TRISTEN Castañeda ([id number]) [facility] ([facility]) [address] [place] [address] 45967 Iron binding capacity [Mass/Vol] 281 ug/dL Normal 240-445 [facility] Comment on above: Performed By: #### 2 4321-2 #### TRISTEN Castañeda ([id number]) [facility] ([facility]) [id number] [place] [address] 97125 Iron binding capacity.unsaturated [Mass/Vol] 270 ug/dL Normal 110-370 [facility] Comment on above: Performed By: #### 2 4321-2 #### TRISTEN Castañeda ([id number]) [facility] ([facility]) [id number] [place] [address] 10681 Iron saturation [Mass fraction] 4 % Low 25-45 [facility] Comment on above: Performed By: #### 2 4321-2 #### TRISTEN Castañeda ([id number]) [facility] ([facility]) [address] [place] [address] 98619 Glucose Test strip manual (B ld) [Mass/Vol]on 04-25-2024 Glucose [Mass/Vol] 243 mg/dL High 74-99 [facility] Comment on above: Performed By: #### 2 4321-2 #### TRISTEN Castañeda ([id number]) [facility] ([facility]) [address] [place] [address] 30720 Glucose [Mass/Vol] 213 mg/dL High 74-99 [facility] Comment on above: Performed By: #### 2 4321-2 #### TRISTEN Castañeda ([id number]) [facility] ([facility]) [address] [place] [address] 49935 Glucose [Mass/Vol] 169 mg/dL High 74-99 [facility] Comment on above: Performed By: #### 2 4321-2 #### TRISTEN Castañeda ([id number]) [facility] ([facility]) [address] [place] [address] 38447 Basic metabolic 2000 panelon 04-24-2024 Anion gap [Moles/Vol] 13 mmol/L Normal 10-20 [facility] Comment on above: Performed By: #### 5 7021-8 #### TRISTEN Castañeda ([id number]) [facility] ([facility]) [address] [place] [address] 40648 Calcium [Mass/Vol] 9.0 mg/dL Normal 8.6-10.6 [facility] Comment on above: Performed By: #### 5 7021-8 #### TRISTEN Castañeda ([id number]) [facility] ([facility]) [address] [place] [address] Chloride [Moles/Vol] 101 mmol/L Normal 98-107 [facility] Comment on above: Performed By: #### 5 7021-8 #### TRISTEN CHRISTOPHER L ([id number]) [facility] ([facility]) [address] [place] [address] CO2 [Moles/Vol] 25 mmol/L Normal 21-32 [facility] Comment on above: Performed By: #### 5 7021-8 #### TRISTEN CHRISTOPHER L ([id number]) [facility] ([facility]) [id number] [place] [address] 30961 Creatinine [Mass/Vol] 1.02 mg/dL Normal 0.50-1.05 [facility] Comment on above: Performed By: #### 5 7021-8 #### TRISTEN CHRISTOPHER L ([id number]) [facility] ([facility]) [address] [place] [address] 49884 Glomerular filtration rate/1.73 sq M.predicted 58 mL/min/1.73m*2 Low >60 [facility] Comment on above: Result Comment: Calc ulations of estimated GFR are performed using the 2020 CKD-EPI Study Refit equation without the race variable for the IDMS-Traceable creatinine methods. https://jasn.asnjournals.org/content/early//ASN.17850 02648 Performed By: #### 5 7021-8 #### TRISTEN CHRISTOPHER L ([id number]) [facility] ([facility]) [id number] [place] [address] 39743 Glucose [Mass/Vol] 175 mg/dL High 74-99 [facility] Comment on above: Performed By: #### 5 7021-8 #### TRISTEN Castañeda ([id number]) [facility] ([facility]) [id number] [place] [address] 13990 Potassium [Moles/Vol] 4.7 mmol/L Normal 3.5-5.3 [facility] Comment on above: Performed By: #### 5 7021-8 #### TRISTEN Castañeda ([id number]) [facility] ([facility]) [address] [place] [address] 37387 Sodium [Moles/Vol] 134 mmol/L Low 136-145 [facility] Comment on above: Performed By: #### 5 7021-8 #### TRISTEN Castañeda ([id number]) [facility] ([facility]) [address] [place] [address] 45833 Urea nitrogen [Mass/Vol] 37 mg/dL High 6-23 [facility] Comment on above: Performed By: #### 5 7021-8 #### TRISTEN Castañeda ([id number]) [facility] ([facility]) [address] [place] [address] 95989 CBC panel Auto (Bld)on 04-24 Erythrocyte distribution width (RBC) [Ratio] 12.6 % Normal 11.5-14.5 [facility] Comment on above: Performed By: #### 5 7021-8 #### TRISTEN Castañeda ([id number]) [facility] ([facility]) [address] [place] [address] 91869 Hematocrit (Bld) [Volume fraction] 33.1 % Low 36.0-46.0 [facility] Comment on above: Performed By: #### 5 7021-8 #### TRISTEN Castañeda ([id number]) [facility] ([facility]) [address] [place] [address] 88782 Hemoglobin (Bld) [Mass/Vol] 10.7 g/dL Low 12.0-16.0 [facility] Comment on above: Performed By: #### 5 7021-8 #### TRISTEN Castañeda ([id number]) [facility] ([facility]) [address] [place] [address] 18425 MCH (RBC) [Entitic mass] 30.7 pg Normal 26.0-34.0 [facility] Comment on above: Performed By: #### 5 7021-8 #### TRISTEN Castañeda ([id number]) [facility] ([facility]) [address] [place] [address] MCHC (RBC) [Mass/Vol] 32.3 g/dL Normal 32.0-36.0 [facility] Comment on above: Performed By: #### 5 7021-8 #### TRISTEN Castañeda ([id number]) [facility] ([facility]) [address] [place] [address] MCV (RBC) [Entitic vol] 95 fL Normal 80-100 [facility] Comment on above: Performed By: #### 5 7021-8 #### TRISTEN Castañeda ([id number]) [facility] ([facility]) [id number] [place] [address] 80197 Nucleated RBC/100 WBC (Bld) [Ratio] 0.0 /100 WBCs Normal 0.0-0.0 [facility] Comment on above: Performed By: #### 5 7021-8 #### TRISTEN Castañeda ([id number]) [facility] ([facility]) [id number] [place] [address] 69521 Platelets (Bld) [#/Vol] 212 x10*3/uL Normal 150-450 [facility] Comment on above: Performed By: #### 5 7021-8 #### TRISTEN Castañeda ([id number]) [facility] ([facility]) [id number] [place] [address] 07993 RBC (Bld) [#/Vol] 3.49 x10*6/uL Low 4.00-5.20 [facility] Comment on above: Performed By: #### 5 7021-8 #### TRISTEN Castañeda ([id number]) [facility] ([facility]) [address] [place] [address] WBC (Bld) [#/Vol] 13.2 x10*3/uL High 4.4-11.3 [facility] Comment on above: Performed By: #### 5 7021-8 #### TRISTEN Castañeda ([id number]) [facility] ([facility]) [address] [place] [address] 12639 ECG 12-LEADon 04-24-2024 ECG 12-LEAD Ventricular Rate 76 Atrial Rate 76 P-R Interval 96 QRS Duration 88 Q-T Interval 370 QTC Calculation(Bazett) 416 P [place] -51 R [place] -11 T [place] 34 QRS Count 13 Q Onset 214 P Onset 166 P Offset 194 T Offset 399 QTC Fredericia 400 Diagnosis Unusual P axis, possible ectopic atrial rhythm with Premature atrial complexes in a pattern of bigeminy Abnormal ECG When compared with ECG of 03-APR-2024 07:49, Ectopic atrial rhythm has replaced Sinus rhythm Confirmed by Paramjit Villa ([id number]) on 05/01/2024 8:15:27 AM Normal [facility] Glucose Test strip manual (B ld) [Mass/Vol]on 04-24-2024 Glucose [Mass/Vol] 179 mg/dL High [address] [place] [address] Comment on above: Performed By: #### 2 4321-2 #### TRISTEN Castañeda ([id number]) [facility] ([facility]) [address] [place] [address] 32604 Glucose [Mass/Vol] 232 mg/dL High [address] [place] [address] Comment on above: Performed By: #### 5 7021-8 #### TRISTEN Castañeda ([id number]) [facility] ([facility]) [id number] [place] [address] 36386 Glucose [Mass/Vol] 259 mg/dL High [address] [place] [address] Comment on above: Performed By: #### 5 7021-8 #### TRISTEN Castañeda ([id number]) [facility] ([facility]) [id number] [place] [address] 87382 Glucose [Mass/Vol] 173 mg/dL High [address] [place] [address] Comment on above: Performed By: #### 5 7021-8 #### TRISTEN Castañeda ([id number]) [facility] ([facility]) [id number] [place] [address] 12900 Troponin I.cardiac panelon 0 04-24-2024 Tropinin I.cardiac panel High sensitivity method 4 ng/L Normal 0-34 [facility] Comment on above: Order Comment: Less than 99th percentile of normal range cutoff-Female and children under 18 years old <35 ng/L; Male <54 ng/L: NegativeRepeat testing should be performed if clinically indicated.Female and children under 18 years old 35-120 ng/L; Male 54-120 ng/L:Consistent with possible cardiac damage and possible increased clinicalrisk. Serial measurements may help to assess extent of myocardial damage.>120 ng/L: Consistent with cardiac damage, increased clinical risk andmyocardial infarction. Serial measurements may help assess extent ofmyocardial damage.NOTE: Children less than 1 year old may have higher baseline troponinlevels and results should be interpreted in conjunction with the overallclinical context.NOTE: Troponin I testing is performed using a differenttesting methodology at [facility] than at [facility]. Direct result comparisons should onlybe made within the same method. Performed By: #### 5 7021-8 #### TRISTEN Castañeda ([id number]) [facility] ([facility]) [id number] [place] [address] 98778 Basic metabolic 2000 panelon 04-23-2024 Anion gap [Moles/Vol] 10 mmol/L Normal 10-20 [facility] Comment on above: Performed By: #### T HYDS #### TRISTEN Castañeda ([id number]) [facility] ([facility]) [address] [place] [address] Calcium [Mass/Vol] 9.0 mg/dL Normal 8.6-10.6 [facility] Comment on above: Performed By: #### T HYDS #### TRISTEN Castañeda ([id number]) [facility] ([facility]) [id number] [place] [address] 39971 Chloride [Moles/Vol] 103 mmol/L Normal 98-107 [facility] Comment on above: Performed By: #### T HYDS #### TRISTEN CHRISTOPHER L ([id number]) [facility] ([facility]) [address] [place] [address] CO2 [Moles/Vol] 27 mmol/L Normal 21-32 [facility] Comment on above: Performed By: #### T HYDS #### TRISTEN TORRESTZER L ([id number]) [facility] ([facility]) [address] [place] [address] Creatinine [Mass/Vol] 0.94 mg/dL Normal 0.50-1.05 [facility] Comment on above: Performed By: #### T HYDS #### TRISTEN CHRISTOPHER L ([id number]) [facility] ([facility]) [id number] [place] [address] 84481 Glomerular filtration rate/1.73 sq M.predicted 64 mL/min/1.73m*2 Normal >60 [facility] Comment on above: Result Comment: Calc ulations of estimated GFR are performed using the 2020 CKD-EPI Study Refit equation without the race variable for the IDMS-Traceable creatinine methods. https://jasn.asnjournals.org/content//ASN.96308 50905 Performed By: #### T HYDS #### TRISTEN CHRISTOPHER L ([id number]) [facility] ([facility]) [id number] [place] [address] 48968 Glucose [Mass/Vol] 216 mg/dL High 74-99 [facility] Comment on above: Performed By: #### T HYDS #### TRISTEN CHRISTOPHER L ([id number]) [facility] ([facility]) [address] [place] [address] Potassium [Moles/Vol] 4.8 mmol/L Normal 3.5-5.3 [facility] Comment on above: Performed By: #### T HYDS #### TRISTEN CHRISTOPHER L ([id number]) [facility] ([facility]) [id number] [place] [address] 19937 Sodium [Moles/Vol] 135 mmol/L Low 136-145 [facility] Comment on above: Performed By: #### T HYDS #### TRISTEN Castañeda ([id number]) [facility] ([facility]) [address] [place] [address] 78290 Urea nitrogen [Mass/Vol] 32 mg/dL High 6-23 [facility] Comment on above: Performed By: #### T HYDS #### TRISTEN Castañeda ([id number]) [facility] ([facility]) [address] [place] [address] 85989 CBC panel Auto (Bld)on 04-23 Erythrocyte distribution width (RBC) [Ratio] 12.3 % Normal 11.5-14.5 [facility] Comment on above: Performed By: #### T HYDS #### TRISTEN Castañeda ([id number]) [facility] ([facility]) [address] [place] [address] 21154 Hematocrit (Bld) [Volume fraction] 33.6 % Low 36.0-46.0 [facility] Comment on above: Performed By: #### T HYDS #### TRISTEN Castañeda ([id number]) [facility] ([facility]) [address] [place] [address] 71596 Hemoglobin (Bld) [Mass/Vol] 10.9 g/dL Low 12.0-16.0 [facility] Comment on above: Performed By: #### T HYDS #### TRISTEN Castañeda ([id number]) [facility] ([facility]) [address] [place] [address] 88067 MCH (RBC) [Entitic mass] 31.0 pg Normal 26.0-34.0 [facility] Comment on above: Performed By: #### T HYDS #### TRISTEN Castañeda ([id number]) [facility] ([facility]) [address] [place] [address] 11057 MCHC (RBC) [Mass/Vol] 32.4 g/dL Normal 32.0-36.0 [facility] Comment on above: Performed By: #### T HYDS #### TRISTEN Castañeda ([id number]) [facility] ([facility]) [address] [place] [address] MCV (RBC) [Entitic vol] 96 fL Normal 80-100 [facility] Comment on above: Performed By: #### T HYDS #### TRISTEN Castañeda ([id number]) [facility] ([facility]) [id number] [place] [address] 70793 Nucleated RBC/100 WBC (Bld) [Ratio] 0.0 /100 WBCs Normal 0.0-0.0 [facility] Comment on above: Performed By: #### T HYDS #### TRISTEN Castañeda ([id number]) [facility] ([facility]) [id number] [place] [address] 36804 Platelets (Bld) [#/Vol] 256 x10*3/uL Normal 150-450 [facility] Comment on above: Performed By: #### T HYDS #### TRISTEN Castañeda ([id number]) [facility] ([facility]) [id number] [place] [address] 29466 RBC (Bld) [#/Vol] 3.52 x10*6/uL Low 4.00-5.20 [facility] Comment on above: Performed By: #### T HYDS #### TRISTEN Castañeda ([id number]) [facility] ([facility]) [id number] [place] [address] 81968 WBC (Bld) [#/Vol] 19.6 x10*3/uL High 4.4-11.3 [facility] Comment on above: Performed By: #### T HYDS #### TRISTEN Castañeda ([id number]) [facility] ([facility]) [id number] [place] [address]11 Glucose Test strip manual (B ld) [Mass/Vol]on 04-23-2024 Glucose [Mass/Vol] 182 mg/dL High 74-99 [facility] Comment on above: Performed By: #### [id number] #### TRISTEN Castañeda ([id number]) [facility] ([facility]) [address] [place] [address] Glucose [Mass/Vol] 175 mg/dL High [address] [place] [address] Comment on above: Performed By: #### 5 7021-8 #### TRISTEN SCHMOTZER L ([id number]) [facility] ([facility]) [address] [place] [address] Glucose [Mass/Vol] 152 mg/dL High [address] [place] [address] Comment on above: Performed By: #### 5 7021-8 #### TRISTEN SCHMOTZER L ([id number]) [facility] ([facility]) [address] [place] [address] Glucose [Mass/Vol] 199 mg/dL High [address] [place] [address] Comment on above: Performed By: #### T HYDS #### TRISTEN SCHMOTZER L ([id number]) [facility] ([facility]) [id number] [place] [address] [facility] US LOWER EXTREMITY VENO US DUPLEX BILATERALon 04-23-2024 [facility] US LOWER EXTREMITY VENOUS DUPLEX BILATERAL Interpreted By: Jodi Diaz, STUDY: [facility] US LOWER EXTREMITY VENOUS DUPLEX BILATERAL 04/23/2024 9:25 am INDICATION: 73 y/o F with Signs/Symptoms:B/l calf pain after spine surgery, hx dvt. COMPARISON: None. ACCESSION NUMBER(S): [id number] ORDERING CLINICIAN: ZENA PABLO TECHNIQUE: Routine ultrasound of the bilateral lower extremity was performed with duplex Doppler (color and spectral) evaluation. Static images were obtained for remote interpretation. FINDINGS: THIGH VEINS: The common femoral, femoral, and popliteal veins are normally compressible and demonstrate normal phasic flow with response to augmentation when performed. CALF VEINS: The peroneal and posterior tibial veins are patent. IMPRESSION: Negative study. No deep venous thrombosis of bilateral lower extremities. This study was interpreted at [place], [place]. MACRO: None. Signed by: Jodi Diaz 04/23/2024 9:35 AM Dictation workstation: [id number] [facility] Basic metabolic 2000 panelon 04-22-2024 Anion gap [Moles/Vol] 14 mmol/L Normal 10-20 [facility] Comment on above: Performed By: #### T HYDS #### TRISTEN TORRESER L ([id number]) [facility] ([facility]) [address] [place] [address] Calcium [Mass/Vol] 8.5 mg/dL Low 8.6-10.6 [facility] Comment on above: Performed By: #### T HYDS #### TRISTEN SCHMOTZER L ([id number]) [facility] ([facility]) [address] [place] [address] Chloride [Moles/Vol] 104 mmol/L Normal 98-107 [facility] Comment on above: Performed By: #### T HYDS #### TRISTEN GERMANMOTZER L ([id number]) [facility] ([facility]) [address] [place] [address] CO2 [Moles/Vol] 23 mmol/L Normal 21-32 [facility] Comment on above: Performed By: #### T HYDS #### TRISTEN GERMANMOTZER L ([id number]) [facility] ([facility]) [address] [place] [address] Creatinine [Mass/Vol] 0.84 mg/dL Normal 0.50-1.05 [facility] Comment on above: Performed By: #### T HYDS #### TRISTEN GERMANMOTZER L ([id number]) [facility] ([facility]) [id number] [place] [address] 12819 Glomerular filtration rate/1.73 sq M.predicted 73 mL/min/1.73m*2 Normal >60 [facility] [place] [facility] Comment on above: Result Comment: Calc ulations of estimated GFR are performed using the 2020 CKD-EPI Study Refit equation without the race variable for the IDMS-Traceable creatinine methods. https://jasn.asnjournals.org/content//ASN.25213 33910 Performed By: #### T HYDS #### TRISTEN TORRESTZER L ([id number]) [facility] ([facility]) [address] [place] [address] Glucose [Mass/Vol] 244 mg/dL High 74-99 [facility] Comment on above: Performed By: #### T HYDS #### TRISTEN Castañeda ([id number]) [facility] ([facility]) [address] [place] [address] 21406 Potassium [Moles/Vol] 5.0 mmol/L Normal 3.5-5.3 [facility] Comment on above: Performed By: #### T HYDS #### TRISTEN Castañeda ([id number]) [facility] ([facility]) [address] [place] [address] 15816 Sodium [Moles/Vol] 136 mmol/L Normal 136-145 [facility] Comment on above: Performed By: #### T HYDS #### TRISTEN Castañeda ([id number]) [facility] ([facility]) [address] [place] [address] 80308 Urea nitrogen [Mass/Vol] 24 mg/dL High 6-23 [facility] [place] [facility] Comment on above: Performed By: #### T HYDS #### TRISTEN Castañeda ([id number]) [facility] ([facility]) [address] [place] [address] 16868 CBC panel Auto (Bld)on 04-22 Erythrocyte distribution width (RBC) [Ratio] 12.5 % Normal 11.5-14.5 [facility] [place] [facility] Comment on above: Performed By: #### T HYDS #### TRISTEN Castañeda ([id number]) [facility] ([facility]) [address] [place] [address] 01766 Hematocrit (Bld) [Volume fraction] 33.7 % Low 36.0-46.0 [facility] [place] [facility] Comment on above: Performed By: #### T HYDS #### TRISTEN Castañeda ([id number]) [facility] ([facility]) [address] [place] [address]45[address] Hemoglobin (Bld) [Mass/Vol] 10.9 g/dL Low 12.0-16.0 [facility] [place] [facility] Comment on above: Performed By: #### T HYDS #### TRISTEN Castañeda ([id number]) [facility] ([facility]) [address] [place] [address] 88300 MCH (RBC) [Entitic mass] 31.3 pg Normal 26.0-34.0 [facility] [place] [facility] Comment on above: Performed By: #### T HYDS #### TRISTEN Castañeda ([id number]) [facility] ([facility]) [id number] [place] [address] 57719 MCHC (RBC) [Mass/Vol] 32.3 g/dL Normal 32.0-36.0 [facility] Comment on above: Performed By: #### T HYDS #### TRISTEN Castañeda ([id number]) [facility] ([facility]) [address] [place] [address] 15010 MCV (RBC) [Entitic vol] 97 fL Normal 80-100 [facility] [place] [facility] Comment on above: Performed By: #### T HYDS #### TRISTEN Castañeda ([id number]) [facility] ([facility]) [address] [place] [address] 34655 Nucleated RBC/100 WBC (Bld) [Ratio] 0.0 /100 WBCs Normal 0.0-0.0 [facility] [place] [facility] Comment on above: Performed By: #### T HYDS #### TRISTEN Castañeda ([id number]) [facility] ([facility]) [address] [place] [address] 20634 Platelets (Bld) [#/Vol] 233 x10*3/uL Normal 150-450 [facility] [place] [facility] Comment on above: Performed By: #### T HYDS #### TRISTEN Castañeda ([id number]) [facility] ([facility]) [address] [place] [address] 98785 RBC (Bld) [#/Vol] 3.48 x10*6/uL Low 4.00-5.20 [facility] Comment on above: Performed By: #### T HYDS #### TRISTEN Castañeda ([id number]) [facility] ([facility]) [address] [place] [address] WBC (Bld) [#/Vol] 12.1 x10*3/uL High 4.4-11.3 [facility] Comment on above: Performed By: #### T HYDS #### TRISTEN Castañeda ([id number]) [facility] ([facility]) [address] [place] [address] Glucose Test strip manual (B ld) [Mass/Vol]on 04-22-2024 Glucose [Mass/Vol] 354 mg/dL High [address] [place] [address] Comment on above: Performed By: #### T HYDS #### TRISTEN Castañeda ([id number]) [facility] ([facility]) [address] [place] [address] 75304 Glucose [Mass/Vol] 292 mg/dL High [address] [place] [address] Comment on above: Performed By: #### T HYDS #### TRISTEN Castañeda ([id number]) [facility] ([facility]) [address] [place] [address] 46344 Glucose [Mass/Vol] 254 mg/dL High [address] [place] [address] Comment on above: Performed By: #### T HYDS #### TRISTEN Castañeda ([id number]) [facility] ([facility]) [address] [place] [address] Glucose [Mass/Vol] 252 mg/dL High [address] [place] [address] Comment on above: Performed By: #### T HYDS #### TRISTEN CHRISTOPHER L ([id number]) [facility] ([facility]) [address] [place] [address] Glucose Test strip manual (B ld) [Mass/Vol]on 04-21-2024 Glucose [Mass/Vol] 204 mg/dL High [address] [place] [address] Comment on above: Performed By: #### T HYDS #### TRISTEN GERMANMOTZPILI L ([id number]) [facility] ([facility]) [address] [place] [address] Glucose [Mass/Vol] 154 mg/dL High 74-99 [facility] Comment on above: Performed By: #### 2 341-6 #### TRISTEN Castañeda ([id number]) [facility] ([facility]) [address] [place] [address] Glucose [Mass/Vol] 108 mg/dL High 74-99 [facility] Comment on above: Performed By: #### 2 341-6 #### TRISTEN Castañeda ([id number]) [facility] ([facility]) [address] [place] [address] IR CVC PICCon 04-21-2024 IR CVC PICC These images are not reportable by radiology and will not be interpreted by Radiologists. [facility] XR LUMBAR SPINE 1 VIEWon XR LUMBAR SPINE 1 VIEW These images are not reportable by radiology and will not be interpreted by Radiologists. Normal [facility] [place] [facility] Glucose Test strip manual (B ld) [Mass/Vol]on 04-10-2024 Glucose [Mass/Vol] 106 mg/dL High 74 - 99 mg/dL [facility] Interpretation and review of laboratory results Abnormal [facility] Glucose [Mass/Vol] 106 mg/dL High 74-99 [facility] Comment on above: Performed By: #### 2 341-6 #### JORGE SMITH ([id number]) [facility] ([facility]) [address] [place] [address] Blood type and Indirect anti body screen panel (Bld)on 04-03-2024 ABO group Nom (Bld) B [facility] Comment on above: Performed By: #### 3 4532-2 #### JORGE SMITH ([id number]) [facility] ([facility]) [address] [place], [place] [id number] [place] Blood group antibody screen Ql Negative [facility] Comment on above: Performed By: #### 3 4532-2 #### JORGE SMITH ([id number]) [facility] ([facility]) [address] [place] [address] [place] D Ag Ql (Bld) Positive Normal [facility] [place] [facility] Comment on above: Performed By: #### 3 4532-2 #### JORGE SARAH ([id number]) [facility] ([facility]) [address] ECG 12-LEADon 04-03-2024 ECG 12-LEAD Ventricular Rate 77 Atrial Rate 77 P-R Interval 136 QRS Duration 82 Q-T Interval 398 QTC Calculation(Bazett) 450 P [place] 24 R [place] -27 T [place] 27 QRS Count 12 Q Onset 215 P Onset 147 P Offset 186 T Offset 414 QTC Fredericia 432 Diagnosis Normal sinus rhythm Normal ECG When compared with ECG of 19-MAR-2023 08:22, No significant change was found Confirmed by Alvino Richey ([id number]) on 04/03/2024 4:46:35 PM Normal [facility] HbA1c (Bld) [Mass fraction]o n 02-26-2024 Average glucose Estimated from glycated hemoglobin (Bld) [Mass/Vol] 137 mg/dL Not Established [facility] Interpretation and review of laboratory results Abnormal [facility] Diagnosis of Diabetes-Adults Non-Diabetic: < or = 5.6% Increased risk for developing diabetes: 5.7-6.4% Diagnostic of diabetes: > or = 6.5% Monitoring of Diabetes Age (y)................... .... Therapeutic Goal (%) Adults: >18................... ......<7.0 Pediatrics: 13-18................. ..<7.5 Pediatrics: 7-12.................. ..<8.0 Pediatrics: 0-6................... .. 7.5-8.5 [employer]. Diabetes Care 33(S1), Sep 2009 [facility] Hemoglobin A1Con 02-26-2024 HbA1c (Bld) [Mass fraction] 6.4 % High see below [facility] TSH with reflex to Free T4 i f abnormalon 02-26-2024 Interpretation and review of laboratory results Normal [facility] TSH Qn 1.59 m[IU]/L [facility] TSH testing is performed using different testing methodology at [facility] than at other [facility]. Direct result comparisons should only be made within the same method. [facility] Basic metabolic 2000 panelon 02-25-2024 Anion gap [Moles/Vol] 15 mmol/L Normal 10-20 [facility] Comment on above: Performed By: #### 2 4321-2 #### TRISTEN Castañeda ([id number]) [facility] ([facility]) [address] [place] [address] 87122 Calcium [Mass/Vol] 9.9 mg/dL Normal 8.6-10.6 [facility] Comment on above: Performed By: #### 2 4321-2 #### TRISTEN CHRISTOPHER L ([id number]) [facility] ([facility]) [address] [place] [address] 81018 Chloride [Moles/Vol] 103 mmol/L Normal 98-107 [facility] Comment on above: Performed By: #### 2 4321-2 #### TRISTEN GERMANMOTZER L ([id number]) [facility] ([facility]) [address] [place] [address] 71399 CO2 [Moles/Vol] 27 mmol/L Normal 21-32 [facility] Comment on above: Performed By: #### 2 4321-2 #### TRISTEN GERMANMOTZER L ([id number]) [facility] ([facility]) [address] [place] [address] 87454 Creatinine [Mass/Vol] 0.82 mg/dL Normal 0.50-1.05 [facility] Comment on above: Performed By: #### 2 4321-2 #### TRISTEN GERMANMOTZER L ([id number]) [facility] ([facility]) [address] [place] [address] 27858 Glomerular filtration rate/1.73 sq M.predicted 76 mL/min/1.73m*2 Normal >60 [facility] [place] [facility] Comment on above: Result Comment: Calc ulations of estimated GFR are performed using the 2020 CKD-EPI Study Refit equation without the race variable for the IDMS-Traceable creatinine methods. https://jasn.asnjournals.org/content//ASN.12125 65852 Performed By: #### 2 4321-2 #### TRISTEN Castañeda ([id number]) [facility] ([facility]) [address] [place] [address] 69994 Glucose [Mass/Vol] 91 mg/dL Normal 74-99 [facility] Comment on above: Performed By: #### 2 4321-2 #### TRISTEN CHRISTOPHER L ([id number]) [facility] ([facility]) [address] [place] [address] 45230 Potassium [Moles/Vol] 4.3 mmol/L Normal 3.5-5.3 [facility] Comment on above: Performed By: #### 2 4321-2 #### TRISTEN CHRISTOPHER L ([id number]) [facility] ([facility]) [address] [place] [address] 28015 Sodium [Moles/Vol] 141 mmol/L Normal 136-145 [facility] Comment on above: Performed By: #### 2 4321-2 #### TIRSTEN GERMANMOTZPILI L ([id number]) [facility] ([facility]) [id number] [place] [address] 02087 Urea nitrogen [Mass/Vol] 17 mg/dL Normal 6-23 [facility] [place] [facility] Comment on above: Performed By: #### 2 4321-2 #### TRISTEN GERMANMOTZPILI L ([id number]) [facility] ([facility]) [address] [place] [address] 48894 CBC W Auto Differential pane l (Bld)on 02-25-2024 Basophils (Bld) [#/Vol] 0.04 x10*3/uL Normal 0.00-0.10 [facility] [place] [facility] Comment on above: Performed By: #### 5 7021-8 #### TRISTEN Castañeda ([id number]) [facility] ([facility]) [address] [place] [address] 39537 Basophils/100 WBC (Bld) 0.5 % Normal 0.0-2.0 [facility] [place] [facility] Comment on above: Performed By: #### 5 7021-8 #### TRISTEN Castañeda ([id number]) [facility] ([facility]) [address] [place] [address] 09123 Eosinophils (Bld) [#/Vol] 0.21 x10*3/uL Normal 0.00-0.40 [facility] [place] [facility] Comment on above: Performed By: #### 5 7021-8 #### TRISTEN Castañeda ([id number]) [facility] ([facility]) [address] [place] [address] 26021 Eosinophils/100 WBC (Bld) 2.5 % Normal 0.0-6.0 [facility] [place] [facility] Comment on above: Performed By: #### 5 7021-8 #### TRISTEN Castañeda ([id number]) [facility] ([facility]) [address] [place] [address] 36857 Erythrocyte distribution width (RBC) [Ratio] 12.8 % Normal 11.5-14.5 [facility] [place] [facility] Comment on above: Performed By: #### 5 7021-8 #### TRISTEN Castañeda ([id number]) [facility] ([facility]) [address] [place] [address] 66324 Hematocrit (Bld) [Volume fraction] 40.5 % Normal 36.0-46.0 [facility] [place] [facility] Comment on above: Performed By: #### 5 7021-8 #### TRISTEN Castañeda ([id number]) [facility] ([facility]) [address] [place] [address] 67051 Hemoglobin (Bld) [Mass/Vol] 13.2 g/dL Normal 12.0-16.0 [facility] [place] [facility] Comment on above: Performed By: #### 5 7021-8 #### TRISTEN Castañeda ([id number]) [facility] ([facility]) [address] [place] [address] Immature granulocytes (Bld) [#/Vol] 0.03 x10*3/uL Normal 0.00-0.50 [facility] [place] [facility] Comment on above: Performed By: #### 5 7021-8 #### TRISTEN Catsañeda ([id number]) [facility] ([facility]) [address] [place] [address] 47006 Immature granulocytes/100 WBC (Bld) 0.4 % Normal 0.0-0.9 [facility] [place] [facility] Comment on above: Result Comment: Suzie ture Granulocyte Count (IG) includes promyelocytes, myelocytes and metamyelocytes but does not include bands. Percent differential counts (%) should be interpreted in the context of the absolute cell counts (cells/UL). Performed By: #### 5 7021-8 #### TRISTEN Castañeda ([id number]) [facility] ([facility]) [id number] [place] [address] 44952 Lymphocytes (Bld) [#/Vol] 2.39 x10*3/uL Normal 0.80-3.00 [facility] [place] [facility] Comment on above: Performed By: #### 5 7021-8 #### TRISTEN Castañeda ([id number]) [facility] ([facility]) [address] [place] [address] 46176 Lymphocytes/100 WBC (Bld) 28.0 % Normal 13.0-44.0 [facility] [place] [facility] Comment on above: Performed By: #### 5 7021-8 #### TRISTEN Castañeda ([id number]) [facility] ([facility]) [address] [place] [address] 67537 MCH (RBC) [Entitic mass] 31.2 pg Normal 26.0-34.0 [facility] [place] [facility] Comment on above: Performed By: #### 5 7021-8 #### TRISTEN Castañeda ([id number]) [facility] ([facility]) [address] [place] [address] 91528 MCHC (RBC) [Mass/Vol] 32.6 g/dL Normal 32.0-36.0 [facility] Comment on above: Performed By: #### 5 7021-8 #### TRISTEN Castañeda ([id number]) [facility] ([facility]) [address] [place] [address] MCV (RBC) [Entitic vol] 96 fL Normal 80-100 [facility] Comment on above: Performed By: #### 5 7021-8 #### TRISTEN Castañeda ([id number]) [facility] ([facility]) [address] [place] [address] 49375 Monocytes (Bld) [#/Vol] 0.50 x10*3/uL Normal 0.05-0.80 [facility] [place] [facility] Comment on above: Performed By: #### 5 7021-8 #### TRISTEN Castañeda ([id number]) [facility] ([facility]) [address] [place] [address] 76447 Monocytes/100 WBC (Bld) 5.8 % Normal 2.0-10.0 [facility] Comment on above: Performed By: #### 5 7021-8 #### TRISTEN Castañeda ([id number]) [facility] ([facility]) [address] [place] [address] 55071 Neutrophils (Bld) [#/Vol] 5.38 x10*3/uL Normal 1.60-5.50 [facility] Comment on above: Result Comment: Perc ent differential counts (%) should be interpreted in the context of the absolute cell counts (cells/uL). Performed By: #### 5 7021-8 #### TRISTEN Castañeda ([id number]) [facility] ([facility]) [address] [place] [address] 34081 Neutrophils/100 WBC (Bld) 62.8 % Normal 40.0-80.0 [facility] Comment on above: Performed By: #### 5 7021-8 #### TRISTEN GERMANMOERAN Castañeda ([id number]) [facility] ([facility]) [address] [place] [address] 85211 Nucleated RBC/100 WBC (Bld) [Ratio] 0.0 /100 WBCs Normal 0.0-0.0 [facility] Comment on above: Performed By: #### 5 7021-8 #### TRISTEN Castañeda ([id number]) [facility] ([facility]) [address] [place] [address] Platelets (Bld) [#/Vol] 324 x10*3/uL Normal 150-450 [facility] Comment on above: Performed By: #### 5 7021-8 #### TRISTEN Castañeda ([id number]) [facility] ([facility]) [address] [place] [address] RBC (Bld) [#/Vol] 4.23 x10*6/uL Normal 4.00-5.20 [facility] Comment on above: Performed By: #### 5 7021-8 #### TRISTEN Castañeda ([id number]) [facility] ([facility]) [address] [place] [address] WBC (Bld) [#/Vol] 8.6 x10*3/uL Normal 4.4-11.3 [facility] Comment on above: Performed By: #### 5 7021-8 #### TRISTEN Castañeda ([id number]) [facility] ([facility]) [address] [place] [address] HbA1c (Bld) [Mass fraction]o n 02-25-2024 Average glucose Estimated from glycated hemoglobin (Bld) [Mass/Vol] 137 mg/dL Normal Not Established [facility] Comment on above: Order Comment: Diagn osis of Diabetes-Adults Non-Diabetic: < or = 5.6% Increased risk for developing diabetes: 5.7-6.4% Diagnostic of diabetes: > or = 6.5% Monitoring of Diabetes Age (y)....................... Therapeutic Goal (%) Adults: >18.........................<7.0 Pediatrics: 13-18...................<7.5 Pediatrics: 7-12....................<8.0 Pediatrics: 0-6..................... 7.5-8.5 [employer]. Diabetes Care 33(S1)Sep 2009 Performed By: #### 4 548-4 #### TRISTEN Castañeda ([id number]) [facility] ([facility]) [id number] [place] [address] 28278 Hemoglobin A1c/Hemoglobin.to jacklyn 02-25-2024 HbA1c (Bld) [Mass fraction] 6.4 % High see below [facility] Comment on above: Order Comment: Diagn osis of Diabetes-Adults Non-Diabetic: < or = 5.6% Increased risk for developing diabetes: 5.7-6.4% Diagnostic of diabetes: > or = 6.5% Monitoring of Diabetes Age (y)....................... Therapeutic Goal (%) Adults: >18.........................<7.0 Pediatrics: 13-18...................<7.5 Pediatrics: 7-12....................<8.0 Pediatrics: 0-6..................... 7.5-8.5 [employer]. Diabetes Care 33(S1)Sep 2009 Performed By: #### 4 548-4 #### TRISTEN Castañeda ([id number]) [facility] ([facility]) [address] [place] [id number] PT and aPTT panel Coag (PPP) on 02-25-2024 aPTT Coag (PPP) [Time] 28 s Normal 27-38 Un [facility] Comment on above: Order Comment: The A PTT is no longer used for monitoring Unfractionated Heparin Therapy. For monitoring Heparin Therapy, use the Heparin Assay. Performed By: #### 3 [id number] #### TRISTEN Castañeda ([id number]) [facility] ([facility]) [id number] [place] [id number] INR Coag (PPP) [Relative time] 1.0 Normal 0.9-1.1 East [facility] Comment on above: Order Comment: The A PTT is no longer used for monitoring Unfractionated Heparin Therapy. For monitoring Heparin Therapy, use the Heparin Assay. Performed By: #### 3 4529-8 #### TRISTEN Castañeda ([id number]) [facility] ([facility]) [id number] [place] [phone] PT Coag (PPP) [Time] 11.2 s Normal 9.8-12.8 [facility] Comment on above: Order Comment: The A PTT is no longer used for monitoring Unfractionated Heparin Therapy. For monitoring Heparin Therapy, use the Heparin Assay. Performed By: #### 3 4529-8 #### TRISTEN Castañeda ([id number]) [facility] ([facility]) [address] [place] [phone] TSH WITH REFLEX TO FREE T4 I F ABNORMALon 02-25-2024 TSH Qn 1.59 m[IU]/L Normal 0.44-3.98 [facility] Comment on above: Order Comment: TSH t esting is performed using different testing methodology at [facility] than at other [facility]. Direct result comparisons should only be made within the same method. Performed By: #### T HYDS #### TRISTEN Castañeda ([id number]) [facility] ([facility]) [id number] [place] [phone] MR Lumbar spine WO contrasto n 01-20-2024 1. Postoperative change of L4-S1 posterior spinal fusion and decompression as well as left lateral vertebral body fusion at L3-L4. Similar scoliosis and trace spondylolisthesis as assessed on most recent radiographic evaluation. 2. Imcj-pf-zdnpubxb spinal canal stenosis at L3-L4 secondary to degenerative discogenic change, including central disc extrusion with cranial migration, and facet arthropathy. Mild bilateral neural foraminal narrowing at this level. 3. Otherwise mild spinal canal stenosis at L2-L3. Similar advanced neural foraminal narrowing bilaterally at L5-S1 with hardware artifact mildly degrading assessment. MACRO: None Signed by: Sunday Chavarria 01/20/2024 3:13 PM Dictation workstation: [id number] MMODAL Interpreted By: Sunday Chavarria, STUDY: MR LUMBAR SPINE WO IV CONTRAST performed 01/20/2024 2:39 pm INDICATION: Signs/Symptoms:back pain. COMPARISON: CT lumbar spine dated 04/24/2022. MRI lumbar spine dated 12/05/2015. Lumbar spine radiographs dated 11/12/2022. ACCESSION NUMBER(S): [id number] ORDERING CLINICIAN: YANELIS AYALA TECHNIQUE: Multiplanar multisequence MR imaging of the lumbar spine performed without intravenous contrast. Sagittal T1, T2, STIR, axial T1 and T2 weighted images of the lumbar spine were acquired. FINDINGS: Segmentation: Normal. Conus: The lower thoracic cord appears unremarkable. The conus terminates at the L1-L2 interspace level. Cauda equina are unremarkable. Epidural fluid: None. Hardware: L4-S1 posterior spinal fusion with bilateral posterior pedicular screws and stabilization rods as well as laminectomy/posterior decompression. There is left-sided approach lumbar vertebral body fixation at L3-L4, new in the interim but present on more recent radiographs. Alignment: Similar scoliosis. Trace anterolisthesis of L4 on L5. Alignment is otherwise within normal limits. Vertebral bodies: Lumbar vertebral body heights are grossly maintained. Marrow signal: Trace type 1 Modic endplate signal change involving the inferior endplate of L2 and at L1-L2. No suspicious STIR hyperintensity/marrow edema. Intervertebral discs: Severe degenerative disc height loss at L5-S1. Additional moderate multilevel degenerative disc height loss. Degenerative change: T12-L1: Mild facet arthropathy and ligamentum flavum thickening. Mild disc bulge. Slight ventral thecal sac indentation without spinal canal stenosis or neural foraminal narrowing. L1-2: Mild facet arthropathy. Mild ligamentum flavum hypertrophy. Slightly prominent dorsal epidural fat. Mild disc bulge. Mild narrowing of the uern-flfcedd-ncjl-righ t lateral recesses with no additional spinal canal stenosis. Mild left and minimal right neural foraminal narrowing. L2-3: Mild facet arthropathy with ligamentum flavum hypertrophy and slightly prominent dorsal epidural fat. Chgw-jl-kzepjaxx disc bulge with endplate spurring. Lateral recess narrowing bilaterally with mild spinal canal stenosis. Minimal bilateral neural foraminal narrowing. L3-4: Bilateral facet arthropathy with ligamentum flavum hypertrophy. Mildly prominent dorsal epidural fat. Disc bulge and hypertrophic endplate spurring with superimposed central disc extrusion with up to 12 mm cranial migration from the inferior endplate of L3 (series 5, image 13). Jrfo-uu-lmwcwsva spinal canal stenosis with moderate lateral recess narrowing bilaterally. Mild bilateral neural foraminal narrowing suggested. L4-5: Laminectomy/posterior decompression. No spinal canal stenosis. Residual disc bulge and broad-based central disc protrusion contributing to mild bilateral neural foraminal narrowing. L5-S1: Laminectomy/posterior decompression. No spinal canal stenosis. Posterior disc osteophyte components with right lateral recess narrowing and suspected moderate right and severe left neural foraminal narrowing with assessment limited by hardware artifact. Soft tissues: Fatty atrophy of the inferior posterior paraspinal musculature. Questionable right cortical renal cysts, incompletely characterized. [facility] MMODAL Sunday Chavarria MD - 01/20/2024 Interpreted By: Sunday Chavarria, STUDY: MR LUMBAR SPINE WO IV CONTRAST performed 01/20/2024 2:39 pm INDICATION: Signs/Symptoms:back pain. COMPARISON: CT lumbar spine dated 04/24/2022. MRI lumbar spine dated 12/05/2015. Lumbar spine radiographs dated 11/12/2022. ACCESSION NUMBER(S): [id number] ORDERING CLINICIAN: YANELIS AYALA TECHNIQUE: Multiplanar multisequence MR imaging of the lumbar spine performed without intravenous contrast. Sagittal T1, T2, STIR, axial T1 and T2 weighted images of the lumbar spine were acquired. FINDINGS: Segmentation: Normal. Conus: The lower thoracic cord appears unremarkable. The conus terminates at the L1-L2 interspace level. Cauda equina are unremarkable. Epidural fluid: None. Hardware: L4-S1 posterior spinal fusion with bilateral posterior pedicular screws and stabilization rods as well as laminectomy/posterior decompression. There is left-sided approach lumbar vertebral body fixation at L3-L4, new in the interim but present on more recent radiographs. Alignment: Similar scoliosis. Trace anterolisthesis of L4 on L5. Alignment is otherwise within normal limits. Vertebral bodies: Lumbar vertebral body heights are grossly maintained. Marrow signal: Trace type 1 Modic endplate signal change involving the inferior endplate of L2 and at L1-L2. No suspicious STIR hyperintensity/marrow edema. Intervertebral discs: Severe degenerative disc height loss at L5-S1. Additional moderate multilevel degenerative disc height loss. Degenerative change: T12-L1: Mild facet arthropathy and ligamentum flavum thickening. Mild disc bulge. Slight ventral thecal sac indentation without spinal canal stenosis or neural foraminal narrowing. L1-2: Mild facet arthropathy. Mild ligamentum flavum hypertrophy. Slightly prominent dorsal epidural fat. Mild disc bulge. Mild narrowing of the ibpp-kfvjoux-dujq-righ t lateral recesses with no additional spinal canal stenosis. Mild left and minimal right neural foraminal narrowing. L2-3: Mild facet arthropathy with ligamentum flavum hypertrophy and slightly prominent dorsal epidural fat. Wlaa-in-hejdpazu disc bulge with endplate spurring. Lateral recess narrowing bilaterally with mild spinal canal stenosis. Minimal bilateral neural foraminal narrowing. L3-4: Bilateral facet arthropathy with ligamentum flavum hypertrophy. Mildly prominent dorsal epidural fat. Disc bulge and hypertrophic endplate spurring with superimposed central disc extrusion with up to 12 mm cranial migration from the inferior endplate of L3 (series 5, image 13). Veph-fp-sdowzzmb spinal canal stenosis with moderate lateral recess narrowing bilaterally. Mild bilateral neural foraminal narrowing suggested. L4-5: Laminectomy/posterior decompression. No spinal canal stenosis. Residual disc bulge and broad-based central disc protrusion contributing to mild bilateral neural foraminal narrowing. L5-S1: Laminectomy/posterior decompression. No spinal canal stenosis. Posterior disc osteophyte components with right lateral recess narrowing and suspected moderate right and severe left neural foraminal narrowing with assessment limited by hardware artifact. Soft tissues: Fatty atrophy of the inferior posterior paraspinal musculature. Questionable right cortical renal cysts, incompletely characterized. IMPRESSION: 1. Postoperative change of L4-S1 posterior spinal fusion and decompression as well as left lateral vertebral body fusion at L3-L4. Similar scoliosis and trace spondylolisthesis as assessed on most recent radiographic evaluation. 2. Giuy-cf-vkvqpjhn spinal canal stenosis at L3-L4 secondary to degenerative discogenic change, including central disc extrusion with cranial migration, and facet arthropathy. Mild bilateral neural foraminal narrowing at this level. 3. Otherwise mild spinal canal stenosis at L2-L3. Similar advanced neural foraminal narrowing bilaterally at L5-S1 with hardware artifact mildly degrading assessment. MACRO: None Signed by: Sunday Chavarria 01/20/2024 3:13 PM Dictation workstation: [id number] [facility] Work Phone: Radiology Study observation (narrative) [facility] Work Phone: MR Lumbar spine WO contrastO rdered By: Sunday Chavarria on 01-20-2024 [facility] Work Phone: ESR (Bld) [Velocity]Ordered By: Raina Castro on 11-26-2023 Interpretation and review of laboratory results Abnormal [place] Sedimentation rate, automate dOrdered By: Raina Castro on 11-26-2023 ESR (Bld) [Velocity] 38 mm/h High [employer] Urate [Mass/Vol]on Interpretation and review of laboratory results Normal [employer] Uric acidon 11-26-2023 Urate [Mass/Vol] 4.2 mg/dL 2.5 - 6.2 mg/dL [employer] HbA1c (Bld) [Mass fraction]O rdered By: Keturah Soto on 10-22-2023 Average glucose Estimated from glycated hemoglobin (Bld) [Mass/Vol] 134 mg/dL Not Established [facility] Interpretation and review of laboratory results Abnormal [facility] Diagnosis of Diabetes-Adults Non-Diabetic: < or = 5.6% Increased risk for developing diabetes: 5.7-6.4% Diagnostic of diabetes: > or = 6.5% Monitoring of Diabetes Age (y)................... .... Therapeutic Goal (%) Adults: >18................... ......<7.0 Pediatrics: 13-18................. ..<7.5 Pediatrics: 7-12.................. ..<8.0 Pediatrics: 0-6................... .. 7.5-8.5 [place] [employer]. Diabetes Care 33(S1), Sep 2009 [facility] Hemoglobin [id number] By: Stepan Soto on 10-22-2023 HbA1c (Bld) [Mass fraction] 6.3 % High see below [facility] Albumin , Urine Randomon Albumin/Creatinine DL <= 20 mg/L (U) [Mass ratio] [facility] Comment on above: One or more analytes used in this calculation is outside of the analytical measurement range. Calculation cannot be performed. Albumin/Creatinine DL <= 20 mg/L (U) [Mass ratio]on 10-21-2023 Albumin DL <= 20 mg/L (U) [Mass/Vol] mg/L Not established mg/L [facility] Creatinine (U) [Mass/Vol] 54.4 mg/dL 20.0 - 320.0 mg/dL [facility] Comprehensive metabolic 2000 panelon 10-21-2023 Albumin BCP dye [Mass/Vol] 3.7 g/dL 3.4 - 5.0 g/dL [facility] ALP [Catalytic activity/Vol] 106 U/L 33 - 136 U/L [facility] ALT With P-5'-P [Catalytic activity/Vol] 19 U/L 7 - 45 U/L [facility] Comment on above: Patients treated wit h Sulfasalazine may generate falsely decreased results for ALT. Anion gap [Moles/Vol] 10 mmol/L 10 - 2 0 mmol/L [facility] AST With P-5'-P [Catalytic activity/Vol] 22 U/L 9 - 39 U/L [facility] Bilirubin [Mass/Vol] 0.3 mg/dL 0.0 - 1 .2 mg/dL [facility] Calcium [Mass/Vol] 9.4 mg/dL 8.6 - 10. 3 mg/dL [facility] Chloride [Moles/Vol] 107 mmol/L 98 - 10 7 mmol/L [facility] CO2 [Moles/Vol] 28 mmol/L 21 - 32 mmol/L [facility] Creatinine [Mass/Vol] 0.82 mg/dL 0.50 - 1.05 mg/dL [facility] GFR/1.73 sq M.predicted among non-blacks MDRD (S/P/Bld) [Vol rate/Area] 76 mL/min/{1.73_m2} - PINF [facility] Comment on above: Calculations of rosa mated GFR are performed using the 2020 CKD-EPI Study Refit equation without the race variable for the IDMS-Traceable creatinine methods. https://jasn.asnjournals.org/content/early/ASN.48027 96157 Glucose [Mass/Vol] 88 mg/dL 74 - 99 mg/dL [facility] Interpretation and review of laboratory results Normal [facility] Potassium [Moles/Vol] 4.4 mmol/L 3.5 - 5.3 mmol/L [facility] Protein [Mass/Vol] 6.5 g/dL 6.4 - 8.2 g/dL [facility] Sodium [Moles/Vol] 141 mmol/L 136 - 145 mmol/L [facility] Urea nitrogen [Mass/Vol] 15 mg/dL 6 - 23 mg/dL [facility] Lipid 1996 panelon 4 Cholesterol [Mass/Vol] 140 mg/dL 0 - 1 99 mg/dL [facility] Comment on above: Age Desirable Borderline High High 0-19 Y 0 - 169 170 - 199 >/= 200 20-24 Y 0 - 189 190 - 224 >/= 225 >24 Y 0 - 199 200 - 239 >/= 240 All ranges are based on fasting samples. Specific therapeutic targets will vary based on patient-specific cardiac risk. Pediatric guidelines reference:Pediatrics 2011, 128(S5).Adult guidelines reference: NCEP ATPIII Guidelines,MAGUI 2001, 258:2486-97 Venipuncture immediately after or during the administration of Metamizole may lead to falsely low results. Testing should be performed immediately prior to Metamizole dosing. Cholesterol in HDL [Mass/Vol] 45.8 mg/dL [facility] Comment on above: Age Very Low Low Normal High 0-19 Y < 35 < 40 40-45 ---- 20-24 Y ---- < 40 >45 ---- >24 Y ---- < 40 40-60 >60 Cholesterol in LDL [Mass/Vol] 70 mg/dL NINF - 99 mg/dL [facility] Comment on above: Near Borderline AGE Desirable Optimal High High Very High 0-19 Y 0 - 109 --- 110-129 >/= 130 ---- 20-24 Y 0 - 119 --- 120-159 >/= 160 ---- >24 Y 0 - 99 100-129 130-159 160-189 >/=190 Cholesterol in VLDL [Mass/Vol] 24 mg/dL 0 - 40 mg/dL [facility] Cholesterol.total/Chol esterol in HDL [Mass ratio] 3.1 {ratio} [facility] Comment on above: Ref Values Desirable < 3.4 High Risk > 5.0 Non HDL Cholesterol 94 mg/dL 0 - 149 mg/dL [facility] Comment on above: Age Desirable Borderline High High Very High 0-19 Y 0 - 119 120 - 144 >/= 145 >/= 160 20-24 Y 0 - 149 150 - 189 >/= 190 ---- >24 Y 30 mg/dL above LDL Cholesterol goal Triglyceride [Mass/Vol] 120 mg/dL 0 - 149 mg/dL [facility] Comment on above: Age Desirable Borderline High High Very High 0 D-90 D 19 - 174 ---- ---- ---- 91 D- 9 Y 0 - 74 75 - 99 >/= 100 ---- 10-19 Y 0 - 89 90 - 129 >/= 130 ---- 20-24 Y 0 - 114 115 - 149 >/= 150 ---- >24 Y 0 - 149 150 - 199 200- 499 >/= 500 Venipuncture immediately after or during the administration of Metamizole may lead to falsely low results. Testing should be performed immediately prior to Metamizole dosing. No Panel Informationon 10-21 [facility] TPO Ab Qnon 10-21-2023 Interpretation and review of laboratory results Abnormal [facility] Negative: <=60 U/mL Positive: >60 U/mL [facility] TPO antibodyon 10-21-2023 TPO Ab Qn 151 [IU]/mL High NINF [facility] TSH with reflex to Free T4 i f abnormalon 10-21-2023 Interpretation and review of laboratory results Normal [facility] TSH Qn 2.62 m[IU]/L [facility] TSH testing is performed using different testing methodology at [facility] than at other [facility]. Direct result comparisons should only be made within the same method. [facility] POCT UA Automated manually r esultedOrdered By: Debbie Grimm on 09-18-2023 Appearance (U) Clear Clear [facility] Glucose Test strip (U) [Mass/Vol] Negative NEGATIVE mg/dl [facility] Hemoglobin Ql (U) Negative NEGATIVE [facility] Leukocyte esterase Test strip Ql (U) Negative NEGATIVE [facility] Nitrite Ql (U) Negative NEGATIVE [facility] pH (U) 6.0 [pH] No Reference Range Established [facility] POC Bilirubin, [facility]rine [facility] Color, Urine Yellow Straw, Yellow, Light-Yellow [facility] POC Ketones, Urine Negative NEGATIVE mg/dl [facility] POC Protein, Urine Negative NEGATIVE, 30 (1+) mg/dl [facility] POC Specific [place], Urine 1.020 1.005 - 1.035 [facility] POC Urobilinogen, Urine 0.2 0.2, 1.0 EU/DL [facility] US Thyroid glandon 3 Nodule 1: ACR TI-RAD S 2017 Category: TR3. Based on ACR TI-RADS criteria, no follow-up is necessary. Nodule 2: ACR TI-RADS 2017 Category: TR4. Based on ACR TI-RADS criteria, no follow-up is necessary. ACR TI-RADS 2017 Recommendations: TR1 (0-1 points): No FNA or follow-up. TR2 (2 points): No FNA or follow-up. TR3 (3 points): FNA if greater than or equal to 2.5 cm, follow up if 1.5 to 2.4 cm in 1, 3, and 5 years TR4 (4-6 points): FNA if greater than or equal to 1.5 cm, follow up if 1 to 1.4 cm in 1, 2, 3, and 5 years TR5 (7+ points): FNA if greater than or equal to 1.0 cm, follow up if 0.5 to 0.9 cm every year for 5 years *ACR TI-RADS recommends that no more than two nodules with the highest ACR TI-RADS total point should be biopsied and no more than four nodules should be followed. Report Dictated on Electronically Signed By: Aaron Leos MD Electronically Signed Date/Time: 07/31/2023 10:27 AM EST [facility] Patient Name: TRISTEN GOMEZ : 1950 Exam Date/Time: 07/29/2023 12:22 Procedure: US THYROID Ordering Provider: ALVAREZ MARK Reason For Exam: D44.0 EXAMINATION: Thyroid ultrasound. 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 FINDINGS: Right thyroid lobe: 1.7 x 1.9 x 4.3 cm (AP x TRV x SAG). The right thyroid lobe is normal in size and the parenchyma has normal homogeneous echogenicity. Left thyroid lobe: 1.4 x 1.8 x 4.6 cm (AP x TRV x SAG). The left thyroid lobe is normal in size and the parenchyma has normal homogeneous echogenicity. Thyroid isthmus AP diameter: 0.3 cm Nodule 1: Location: Right mid thyroid lobe Size: 1.4 x 1.0 x 1.2 cm (AP x TRV x SAG) Composition: Solid Echogenicity: Isoechoic Margin: Smooth Echogenic foci: None ACR total points: 3 Nodule 2: Location: Left lower thyroid lobe Size: 0.9 x 0.9 x 0.7 cm (AP x TRV x SAG) Composition: Solid Echogenicity: Isoechoic Margin: Smooth Echogenic foci: Rim calcifications are present ACR total points: 5 Other findings None [facility] Aaron Leos MD - 07/31/2023 [facility] 1950 [id number] Exam Date/Time: 07/29/2023 12:22 Procedure: US THYROID Ordering Provider: ALVAREZ MARK Reason For Exam: D44.0 EXAMINATION: Thyroid ultrasound. 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 FINDINGS: Right thyroid lobe: 1.7 x 1.9 x 4.3 cm (AP x TRV x SAG). The right thyroid lobe is normal in size and the parenchyma has normal homogeneous echogenicity. Left thyroid lobe: 1.4 x 1.8 x 4.6 cm (AP x TRV x SAG). The left thyroid lobe is normal in size and the parenchyma has normal homogeneous echogenicity. Thyroid isthmus AP diameter: 0.3 cm Nodule 1: Location: Right mid thyroid lobe Size: 1.4 x 1.0 x 1.2 cm (AP x TRV x SAG) Composition: Solid Echogenicity: Isoechoic Margin: Smooth Echogenic foci: None ACR total points: 3 Nodule 2: Location: Left lower thyroid lobe Size: 0.9 x 0.9 x 0.7 cm (AP x TRV x SAG) Composition: Solid Echogenicity: Isoechoic Margin: Smooth Echogenic foci: Rim calcifications are present ACR total points: 5 Other findings None IMPRESSION: Nodule 1: ACR TI-RADS 2017 Category: TR3. Based on ACR TI-RADS criteria, no follow-up is necessary. Nodule 2: ACR TI-RADS 2017 Category: TR4. Based on ACR TI-RADS criteria, no follow-up is necessary. ACR TI-RADS 2017 Recommendations: TR1 (0-1 points): No FNA or follow-up. TR2 (2 points): No FNA or follow-up. TR3 (3 points): FNA if greater than or equal to 2.5 cm, follow up if 1.5 to 2.4 cm in 1, 3, and 5 years TR4 (4-6 points): FNA if greater than or equal to 1.5 cm, follow up if 1 to 1.4 cm in 1, 2, 3, and 5 years TR5 (7+ points): FNA if greater than or equal to 1.0 cm, follow up if 0.5 to 0.9 cm every year for 5 years *ACR TI-RADS recommends that no more than two nodules with the highest ACR TI-RADS total point should be biopsied and no more than four nodules should be followed. Report Dictated on Electronically Signed By: Aaron Leos MD Electronically Signed Date/Time: 07/31/2023 10:27 AM EST [facility] Thy[facility] glandOrdered By: Aaron Leos on 07-31-2023 [facility]: [place] Thyroid glandon 3 Radiology Study observation (narrative) [facility] [employer] Basic metabolic 2000 panelon 07-20-2023 Anion gap [Moles/Vol] 8 mmol/L Low 9-18 [facility] Comment on above: Order Comment: Jarred rosenberg Type: BLOOD SPECIMEN Ordering Facility: [facility] Address: [address] [place] [address] Performed By: #### 2 4320-10, #### [facility] CLIA [id number] [address] [place] [address] [place] Calcium [Mass/Vol] 9.7 mg/dL Normal 8.5-10.2 [facility] Comment on above: Order Comment: Speci shakira Type: BLOOD SPECIMEN Ordering Facility: [facility] Address: [address] [place] [address] Performed By: #### 2 4320-, #### [facility] CLIA [id number] [address] [place] [address] [place] Chloride [Moles/Vol] 103 mmol/L Normal 97-105 [facility] Comment on above: Order Comment: Speci men Type: BLOOD SPECIMEN Ordering Facility: [facility] Address: [address] [place] [address] Performed By: #### 2 432-2, #### [facility] [employer] [facility] CLIA [id number] [address] [place] [address] [place] CO2 [Moles/Vol] 25 mmol/L Normal 22-30 [facility] Comment on above: Order Comment: Jarred men Type: BLOOD SPECIMEN Ordering Facility: [facility] Address: [address] [place] [address] Performed By: #### 2 2, #### [facility] CLIA [id number] [address] [place], [place] [id number] [place] Creatinine [Mass/Vol] 1.02 mg/dL High 0.58-0.96 [facility] Comment on above: Order Comment: Jarred rosenberg Type: BLOOD SPECIMEN [facility] [facility] Address: [address] [place] [address] Result Comment: Use of this assay is not recommended for patients undergoing treatment with phenindione, due to the potential for falsely depressed results. Performed By: #### 2 4320-10, #### [facility] CLIA [id number] [address] [place], [place] [id number] [facility] Creatinine and Glomerular filtration rate.predicted panel (S/P/Bld) 59 mL/min/1.73m??? Low >=60 [facility] Comment on above: Order Comment: Jarred rosenberg Type: BLOOD SPECIMEN Ordering Facility: [facility] Address: [address] [place] [address] Result Comment: Rosa mated Glomerular Filtration Rate (eGFR) is calculated using the 2020 CKD-EPI creatinine equation. This equation utilizes serum creatinine, sex, and age as parameters. The creatinine assay has traceable calibration to isotope dilution-mass spectrometry. Refer to KDIGO guidelines for clinical interpretation. In patients with unstable renal function, e.g. those with acute kidney injury, the eGFR may not accurately reflect actual GFR. Performed By: #### 2 4320-2, #### [facility] CLIA [id number] [address] [place] [address] [place] Glucose [Mass/Vol] 134 mg/dL High 74-99 [facility] Comment on above: Order Comment: Jarred rosenberg Type: BLOOD SPECIMEN Ordering Facility: [facility] Address: [address] [place] [address] Result Comment: The [place] Diabetes Association (ADA) provides guidance for cutoff values for fasting glucose and random glucose. The ADA defines fasting as no caloric intake for at least 8 hours. Fasting plasma glucose results between 100 to 125 mg/dL indicate increased risk for diabetes (prediabetes). Fasting plasma glucose results greater than or equal to 126 mg/dL meet the criteria for diagnosis of diabetes. In the absence of unequivocal hyperglycemia, results should be confirmed by repeat testing. In a patient with classic symptoms of hyperglycemia or hyperglycemic crisis, random plasma glucose results greater than or equal to 200 mg/dL meet the criteria for diagnosis of diabetes. Reference: Standards of Medical Care in Diabetes 2016, [place] Diabetes Association. Diabetes Care. 2016.39(Suppl 1). Performed By: #### 2 4320-10, #### [facility] CLIA [id number] [address] [place] [address] [place] Potassium [Moles/Vol] Normal [facility] Comment on above: Order Comment: Jarred rosenberg Type: BLOOD SPECIMEN Ordering Facility: [facility] Address: [address] [place] [address] Result Comment: Unab le to assay due to interference from hemolysis. Suggest reorder as clinically indicated. Performed By: #### 2 4320-10, #### [facility] CLIA [id number] [address] [place] [address] [place] Sodium [Moles/Vol] 136 mmol/L Normal 136-144 [facility] Comment on above: Order Comment: Jarred rosenberg Type: BLOOD SPECIMEN Ordering Facility: [facility] Address: [address] [place] [address] Performed By: #### 2 43209-24, #### [facility] CLIA [id number] [address] [place] [address] [place] Urea nitrogen [Mass/Vol] 15 mg/dL Normal 7-21 [facility] Comment on above: Order Comment: Speci men Type: BLOOD SPECIMEN Ordering Facility: [facility] Address: [address] [place] [address] Performed By: #### 2 4321-2, 76362-7 #### [facility] CLIA [id number] [address] [place] [address] [place] CBC W Auto Differential pane l (Bld)on 07-20-2023 Basophils (Bld) [#/Vol] 0.03 10*3/uL Normal <0.11 [facility] Comment on above: Order Comment: Speci men Type: BLOOD SPECIMEN Ordering Facility: [facility] Address: [address] [place] [address] Performed By: #### 5 7021-8 #### [facility] CLIA [id number] [address] [place] [address] [place] Basophils/100 WBC (Bld) 0.4 % Normal [facility] Comment on above: Order Comment: Speci men Type: BLOOD SPECIMEN Ordering Facility: [facility] Address: [address] [place] [address] Performed By: #### 5 7021-8 #### [facility] CLIA [id number] [address] [place] [address] [place] Differential cell count method Nom (Bld) Auto Normal [facility] Comment on above: Order Comment: Speci men Type: BLOOD SPECIMEN Ordering Facility: [facility] Address: [address] [place] [address] Performed By: #### 5 7021-8 #### [facility] CLIA [id number] [address] [place] [address] [place] Eosinophils (Bld) [#/Vol] 0.45 10*3/uL Normal <0.46 [facility] Comment on above: Order Comment: Speci men Type: BLOOD SPECIMEN Ordering Facility: [facility] Address: [address] [place] [address] Performed By: #### 5 7021-8 #### [facility] CLIA [id number] [address] [place] [address] [place] Eosinophils/100 WBC (Bld) 5.8 % Normal [facility] Comment on above: Order Comment: Speci men Type: BLOOD SPECIMEN Ordering Facility: [facility] Address: [address] [place] [address] Performed By: #### 5 7021-8 #### [facility] CLIA [id number] [address] [place] [address] [place] Erythrocyte distribution width (RBC) [Ratio] 13.1 % Normal 11.5-15.0 [facility] Comment on above: Order Comment: Speci men Type: BLOOD SPECIMEN Ordering Facility: [facility] Address: [address] [place] [address] Performed By: #### 5 7021-8 #### [facility] CLIA [id number] [address] [place], [place] [address] [place] Hematocrit (Bld) [Volume fraction] 39.5 % Normal 36.0-46.0 [facility] Comment on above: Order Comment: Speci men Type: BLOOD SPECIMEN Ordering Facility: [facility] Address: [address] [place] [address] Performed By: #### 5 7021-8 #### [facility] CLIA [id number] [address] [place] [address] [place] Hemoglobin (Bld) [Mass/Vol] 13.1 g/dL Normal 11.5-15.5 [facility] Comment on above: Order Comment: Speci men Type: BLOOD SPECIMEN Ordering Facility: [facility] Address: [address] [place] [address] Performed By: #### 5 7021-8 #### [facility] CLIA [id number] [address] [place], [place] [address] [place] Immature granulocytes (Bld) [#/Vol] 10*3/uL Normal <0.10 [facility] Comment on above: Order Comment: Speci men Type: BLOOD SPECIMEN Ordering Facility: [facility] Address: [address] [place] [address] Performed By: #### 5 7021-8 #### [facility] CLIA [id number] [address] [place] [address] [place] Immature granulocytes/100 WBC (Bld) 0.3 % Normal [facility] Comment on above: Order Comment: Speci men Type: BLOOD SPECIMEN Ordering Facility: [facility] Address: [address] [place] [address] Performed By: #### 5 7021-8 #### [facility] CLIA [id number] [address] [place] [address] [place] Lymphocytes (Bld) [#/Vol] 2.47 10*3/uL Normal 1.00-4.00 [facility] Comment on above: Order Comment: Speci men Type: BLOOD SPECIMEN Ordering Facility: [facility] Address: [address] [place] [address] Performed By: #### 5 7021-8 #### [facility] CLIA [id number] [address] [place], [place] [address] [place] Lymphocytes/100 WBC (Bld) 32.1 % Normal [facility] Comment on above: Order Comment: Speci men Type: BLOOD SPECIMEN Ordering Facility: [facility] Address: [address] [place] [address] Performed By: #### 5 7021-8 #### [facility] CLIA [id number] [address] [place] [address] [place] MCH (RBC) [Entitic mass] 31.5 pg Normal 26.0-34.0 [facility] Comment on above: Order Comment: Speci men Type: BLOOD SPECIMEN Ordering Facility: [facility] Address: [address] [place] [address] Performed By: #### 5 7021-8 #### [facility] CLIA [id number] [address] [place] [address] [place] MCHC (RBC) [Mass/Vol] 33.2 g/dL Normal 30.5-36.0 [facility] Comment on above: Order Comment: Speci men Type: BLOOD SPECIMEN Ordering Facility: [facility] Address: [address] [place] [address] Performed By: #### 5 7021-8 #### [facility] CLIA [id number] [address] [place] [address] [place] MCV (RBC) [Entitic vol] 95.0 fL Normal 80.0-100.0 [facility] Comment on above: Order Comment: Speci men Type: BLOOD SPECIMEN Ordering Facility: [facility] Address: [address] [place] [address] Performed By: #### 5 7021-8 #### [facility] CLIA [id number] [address] [place] [address] [place] Monocytes (Bld) [#/Vol] 0.63 10*3/uL Normal <0.87 [facility] Comment on above: Order Comment: Speci men Type: BLOOD SPECIMEN Ordering Facility: [facility] Address: [address] [place] [address] Performed By: #### 5 7021-8 #### [facility] CLIA [id number] [address] [place] [address] [place] Monocytes/100 WBC (Bld) 8.2 % Normal [facility] Comment on above: Order Comment: Speci men Type: BLOOD SPECIMEN Ordering Facility: [facility] Address: [address] [place] [address] Performed By: #### 5 7021-8 #### [facility] CLIA [id number] [address] [place] [address] [place] Neutrophils (Bld) [#/Vol] 4.10 10*3/uL Normal 1.45-7.50 [facility] Comment on above: Order Comment: Speci men Type: BLOOD SPECIMEN Ordering Facility: [facility] Address: [address] [place] [address] Performed By: #### 5 7021-8 #### [facility] CLIA [id number] [address] [place] [address] [place] Neutrophils/100 WBC (Bld) 53.2 % Normal [facility] Comment on above: Order Comment: Speci men Type: BLOOD SPECIMEN Ordering Facility: [facility] Address: [address] [place] [address] Performed By: #### 5 7021-8 #### [facility] CLIA [id number] [address] [place] [address] [place] [address] [place] Nucleated RBC (Bld) [#/Vol] Normal [facility] Comment on above: Order Comment: Speci men Type: BLOOD SPECIMEN Ordering Facility: [facility] Address: [address] [place] [address] Performed By: #### 5 7021-8 #### [facility] CLIA [id number] [address] [place] [address] [place] Nucleated RBC/100 WBC (Bld) [Ratio] Normal [facility] Comment on above: Order Comment: Speci men Type: BLOOD SPECIMEN Ordering Facility: [facility] Address: [address] [place] [address] Performed By: #### 5 7021-8 #### [facility] CLIA [id number] [address] [place] [address] [place] Platelet mean volume (Bld) [Entitic vol] 9.5 fL Normal 9.0-12.7 [facility] Comment on above: Order Comment: Speci men Type: BLOOD SPECIMEN Ordering Facility: [facility] Address: [address] [place] [address] Performed By: #### 5 7021-8 #### [facility] CLIA [id number] [address] [place] [address] [place] Platelets (Bld) [#/Vol] 250 10*3/uL Normal 150-400 [facility] Comment on above: Order Comment: Speci men Type: BLOOD SPECIMEN Ordering Facility: [facility] Address: [address] [place] [address] Performed By: #### 5 7021-8 #### [facility] CLIA [id number] [address] [place] [address] [place] RBC (Bld) [#/Vol] 4.16 10*6/uL Normal 3.90-5.20 [facility] Comment on above: Order Comment: Speci men Type: BLOOD SPECIMEN Ordering Facility: [facility] Address: [place] [id number] Performed By: #### 5 7021-8 #### [facility] CLIA [id number] [address] [place], [place] [id number] [facility] WBC (Bld) [#/Vol] 7.70 10*3/uL Normal 3.70-11.00 [facility] Comment on above: Order Comment: Speci men Type: BLOOD SPECIMEN Ordering Facility: [facility] Address: [place] [address] Performed By: #### 5 7021-8 #### [facility] CLIA [id number] [address] [place], [place] [address] [facility] ED PROV NOTEon 07-20-2023 ED PROV NOTE HNO ID: [id number] Author: Mari Bland MD Service: Emergency Medicine Author Type: Physician Type: ED Provider Notes Filed: 07/20/2023 11:27 PM Note Text: Attending Note I evaluated the patient and performed a substantive portion of the care on this visit. I agree with the resident's findings and plan as documented except where my note differs, and I discussed the management of the patient's care with the resident. I received direct report from [facility]. 72-year-old female who had a swimming feeling. She thought her blood sugar might be low but it was 145 when she checked it. EMS checked it and found it to be 153. She has a history of diabetes and hypertension and vital signs are 142/80, 82, 16, 98%. Normal EMS exam. Patient says she feels woozy. No exacerbating relieving factors. Is been present for a few hours. No headache or chest pain or dyspnea. No nausea vomiting or diarrhea. No urinary symptoms. No rectal bleeding. No new medicines. She has chronic left sided weakness from previous trauma. Exam Sitting upright appears well nontoxic no distress. Her pupils are equal round reactive to light. Her extraocular movements are intact. Her visual bender are intact. Hearing is intact to finger rub. Oropharynx pink moist clear. Heart regular rate rhythm without murmurs or rubs or gallops. Lungs are clear to auscultation without wheezes or rhonchi or crackles. Her abdomen is soft nontender nondistended without again megaly or masses. She is alert and oriented x3. Her cranial nerves are intact. She has no motor or sensory deficits. Normal [id number]. No nystagmus MARI BLAND 07/20/23 2327 Normal [facility] ED PROV NOTE HNO ID: [id number] Author: Mari Bland MD Service: Emergency Medicine Author Type: Physician Type: ED Provider Notes Filed: 07/20/2023 11:25 PM Note Text: ED Provider Note Patient Name: Tristen Gomez : 1950 SERVICE DATE: 07/20/23 History Patient presents with: Dizziness Patient is a 72-year-old female with past medical history of diabetes that presents today with concerns for dizziness. She states that last night she was not feeling well however she tried to sleep it off. Today she was feeling woozy and just not feeling well. She thought it might be related to low blood sugar so she attempted to drink some pop to raise her blood sugar which she states did not help. 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 Last night she started to feel woozy PAST MEDICAL HISTORY Diagnosis Date Arthritis of knee, degenerative DDD (degenerative disc disease), cervical 08/01/2015 Depression Diabetes mellitus (HCC) Dysarthria 11/28/2015 - On baclofen for that Fall 11/27/2015 - new onset falls over the past 2 days - 3rd episode over the past 2 days, no associated loss of consciousness - likely secondary to peripheral neuropathy, loss of sensation frontal half on ventral surface of bilateral feet +/- orthostatic due to decreased intake +/- contribution from medications (neurontin, baclofen) PLAN: - decrease dose of neurontin to BID - PT/OT/PMR - iv fluids discontinued Hyperthyroidism Migraine without aura and without status migrainosus, not intractable 08/01/2015 TMJ (temporomandibular joint disorder) Tremor Vaginal lesion 11/04/2015 PAST SURGICAL HISTORY Procedure Laterality Date DANDC OF MOLAR HYSTERECTOMY HX LAPROSCOPIC REPAIR UMBILICAL HERNIA PAST SURGICAL HISTORY OF Left ankle surgery PAST SURGICAL HISTORY OF BL knee laproscopy PAST SURGICAL HISTORY OF Behind ear tumor-removed Benign TONSILLECTOMY HX FAMILY HISTORY Problem Relation Age of Onset Stroke Mother Seizures Mother Coronary Artery Disease Mother Diabetes Mother Seizures Maternal Grandmother Coronary Artery Disease Maternal Grandmother Diabetes Maternal Grandmother Cancer Father lung Coronary Artery Disease Paternal Grandmother Social History Tobacco Use Smoking status: Never Smokeless tobacco: Never Vaping Use Vaping Use: Never used Substance and Sexual Activity Alcohol use: No Drug use: Not on file Sexual activity: Not on file ALLERGIES Allergen Reactions Aspirin Unknown Codeine Other: See Comments Demerol [Meperidine* Other: See Comments Erythromycin Other: See Comments Hydrocodone Other: See Comments She attributes her eye sensitivity to this medicine; photophobia and being unable to watch television Lysine Unknown Septra [Sulfamethox* Intolerance Sinemet [Carbidopa-* Unknown Trimethoprim Unknown Tylenol [Acetaminop* Unknown Review of Systems Constitutional: Positive for fatigue. Negative for activity change and fever. HENT: Positive for congestion. Negative for facial swelling and rhinorrhea. Eyes: Negative for pain and visual disturbance. Respiratory: Negative for cough, chest tightness and shortness of breath. Cardiovascular: Negative for chest pain and leg swelling. Gastrointestinal: Positive for nausea. Negative for abdominal pain, constipation, diarrhea and vomiting. Endocrine: Negative. Genitourinary: Negative for difficulty urinating, dysuria and urgency. Skin: Negative for color change and rash. Neurological: Positive for light-headedness. Negative for dizziness, syncope, weakness, numbness and headaches. Psychiatric/Behavioral : Negative for behavioral problems. The patient is not nervous/anxious. Physical Exam Vitals [07/20/23 1805] BP Pulse Temp Temp src Resp SpO2 Weight Height 148/72 (!) 93 36.4 ?C (97.5 ?F) -- 16 96 % 106.6 kg (235 lb) 1.676 m (5' 6) Physical Exam Constitutional: General: She is not in acute distress. Appearance: Normal appearance. She is not ill-appearing. HENT: Head: Normocephalic and atraumatic. Nose: Nose normal. Mouth/Throat: Mouth: Mucous membranes are moist. Pharynx: Oropharynx is clear. No oropharyngeal exudate. Eyes: General: Right eye: No discharge. Left eye: No discharge. Extraocular Movements: Extraocular movements intact. Conjunctiva/sclera: Conjunctivae normal. Cardiovascular: Rate and Rhythm: Normal rate and regular rhythm. Pulses: Normal pulses. Heart sounds: Normal heart sounds. Pulmonary: Effort: Pulmonary effort is normal. No respiratory distress. Breath sounds: Normal breath sounds. No wheezing, rhonchi or rales. Abdominal: General: Abdomen is flat. There is no distension. Palpations: Abdomen is soft. Tenderness: There is no abdominal tenderness. There is no guarding. Hernia: No hernia is present. Musculoskeletal: (more content not included)... Normal [facility] EKGon 07-20-2023 Electrocardiogram Ventricular Rate : 8 7 BPM Atrial Rate : 87 BPM P-R Interval : 134 ms QRS Duration : 86 ms Q-T Interval : 382 ms QTC Calculation(Bazett) : 459 ms Calculated [place] : -27 degrees Calculated [place] : -15 degrees Calculated [place] : 26 degrees NORMAL SINUS RHYTHM NORMAL ECG NO PREVIOUS ECGS AVAILABLE Confirmed by MD BLAND JNO ([id number]) on 07/20/2023 6:30:21 PM NAME : TRISTEN GOMEZ PID : [id number] : 1950 Gender : Female Race : ORD : Procedure Date : Jul 20 2023 18:18:28 Edit Date : Jul 20 2023 18:30:23 Diagnosis: NORMAL SINUS RHYTHM NORMAL ECG NO PREVIOUS ECGS AVAILABLE Confirmed by MD BLAND JNO ([id number]) on 07/20/2023 6:30:21 PM Test Reason : Location : 148 : [facility]ED ED Overread By : MD BLAND JNO Edited By : MD BLAND JNO Referred By : , Acquired by : ROSA SHUKLA [facility] HIGH SENSITIVITY TROPONIN Io n 07-20-2023 Tropinin I.cardiac panel High sensitivity method 5.9 pg/mL Normal <=20.7 [facility] Comment on above: Order Comment: Speci men Type: BLOOD SPECIMEN Ordering Facility: [facility] Address: [address] [place] [address] Result Comment: New methodology (high sensitivity troponin I)/new testing platform; please note change in reference range. Performed By: #### H STROP #### [facility] CLIA [id number] [address] [place] [address] [place] Tropinin I.cardiac panel High sensitivity method 5.8 pg/mL Normal <=20.7 [facility] Comment on above: Order Comment: Speci men Type: BLOOD SPECIMEN Ordering Facility: [facility] Address: [address] [place] [address] Result Comment: New methodology (high sensitivity troponin I)/new testing platform; please note change in reference range. Performed By: #### H STROP #### [facility] CLIA [id number] [address] [place] [address] [place] Magnesium SerPl-mCncon 07-20 Magnesium [Mass/Vol] 1.9 mg/dL Normal 1.7-2.3 [facility] Comment on above: Order Comment: Speci men Type: BLOOD SPECIMEN Ordering Facility: [facility] Address: [address] [place] [address] Performed By: #### 2 4321-2, 51706-3 #### [facility] CLIA [id number] [address] [place] [address] [place] POTASSIUM BLDon 07-20-2023 Potassium [Moles/Vol] 3.5 mmol/L Low 3.7-5.1 [facility] Comment on above: Order Comment: Speci men Type: BLOOD SPECIMEN Ordering Facility: [facility] Address: [address] [place] [address] Performed By: #### K 1 #### [facility] CLIA [id number] [address] [place], [place] [id number] [place] Urinalysis complete panel (U )on 07-20-2023 Bacteria LM.HPF (Urine sed) [#/Area] Rare Abnormal None Seen [facility] Comment on above: Order Comment: Speci men Type: URINE SPECIMEN Ordering Facility: [facility] Address: [address] [place] [address] Performed By: #### 2 4356-8 #### [facility] CLIA [id number] [address] [place], [place] [id number] [place] Bilirubin Ql (U) Negative Normal Negative [facility] Comment on above: Order Comment: Speci men Type: URINE SPECIMEN Ordering Facility: [facility] Address: [address] [place] [address] Performed By: #### 2 4356-8 #### [facility] CLIA [id number] [address] [place] [address] [place] Clarity (Unsp spec) Clear Normal Clear [facility] Comment on above: Order Comment: Speci men Type: URINE SPECIMEN Ordering Facility: [facility] Address: [address] [place] [address] Performed By: #### 2 4356-8 #### [facility] CLIA [id number] [address] [place], [place] [id number] [place] Color (U) Straw Normal Yellow [facility] Comment on above: Order Comment: Speci men Type: URINE SPECIMEN Ordering Facility: [facility] Address: [address] [place] [address] Performed By: #### 2 4356-8 #### [facility] CLIA [id number] [address] [place], [place] [id number] [place] Epithelial cells LM.HPF (Urine sed) [#/Area] Few Normal [facility] Comment on above: Order Comment: Speci men Type: URINE SPECIMEN Ordering Facility: [facility] Address: [address] [place] [address] Performed By: #### 2 4356-8 #### [facility] CLIA [id number] [address] [place] [address] [place] Glucose Test strip (U) [Mass/Vol] Negative Normal Negative [facility] Comment on above: Order Comment: Speci men Type: URINE SPECIMEN Ordering Facility: [facility] Address: [address] [place] [address] Performed By: #### 2 4356-8 #### [facility] CLIA [id number] [address] [place] [address] [place] Hemoglobin Ql (U) Negative Normal Negative [facility] Comment on above: Order Comment: Speci men Type: URINE SPECIMEN Ordering Facility: [facility] Address: [address] [place] [address] Performed By: #### 2 4356-8 #### [facility] CLIA [id number] [address] [place] [address] [place] Ketones Ql (U) Negative Normal Negative [facility] Comment on above: Order Comment: Speci men Type: URINE SPECIMEN Ordering Facility: [facility] Address: [address] [place] [address] Performed By: #### 2 4356-8 #### [facility] CLIA [id number] [address] [place] [address] [place] Leukocyte esterase Test strip Ql (U) Trace Abnormal Negative [facility] Comment on above: Order Comment: Speci men Type: URINE SPECIMEN Ordering Facility: [facility] Address: [address] [place] [address] Performed By: #### 2 4356-8 #### [facility] CLIA [id number] [address] [place] [address] [place] Nitrite Ql (U) Negative Normal Negative [facility] Comment on above: Order Comment: Speci men Type: URINE SPECIMEN Ordering Facility: [facility] Address: [address] [place] [address] Performed By: #### 2 4356-8 #### [facility] CLIA [id number] [address] [place] [address] [place] pH (U) 6.0 [pH] Normal 5.0-8.0 [facility] Comment on above: Order Comment: Speci men Type: URINE SPECIMEN Ordering Facility: [facility] Address: [address] [place] [address] Performed By: #### 2 4356-8 #### [facility] CLIA [id number] [address] [place] [address] [place] Protein (U) [Mass/Vol] Negative Normal Negative [facility] Comment on above: Order Comment: Speci men Type: URINE SPECIMEN Ordering Facility: [facility] Address: [address] [place] [address] Performed By: #### 2 4356-8 #### [facility] CLIA [id number] [address] [place], [place] [id number] [place] RBC LM.HPF (Urine sed) [#/Area] 0-3 /HPF Normal 0-3 /HPF [facility] Comment on above: Order Comment: Speci men Type: URINE SPECIMEN Ordering Facility: [facility] Address: [address] [place] [address] Performed By: #### 2 4356-8 #### [facility] CLIA [id number] [address] [place], [place] [id number] [place] Specific gravity (U) [Rel density] <=1.005 Low 1.005-1.030 [facility] Comment on above: Order Comment: Speci men Type: URINE SPECIMEN Ordering Facility: [facility] Address: [address] [place] [address] Performed By: #### 2 4356-8 #### [facility] CLIA [id number] [address] [place] [address] OF [place] Urobilinogen Ql (U) 0.2 EU/dL Normal 0.2-1.0 EU/dL [facility] Comment on above: Order Comment: Speci men Type: URINE SPECIMEN Ordering Facility: [facility] Address: [address] [place] [address] Performed By: #### 2 4356-8 #### [facility] CLIA [id number] [address] [place], [place] [id number] [place] WBC LM.HPF (Urine sed) [#/Area] 0-5 /HPF Normal 0-5 /HPF [facility] Comment on above: Order Comment: Speci men Type: URINE SPECIMEN Ordering Facility: [facility] Address: [address] [place] [address] Performed By: #### 2 4356-8 #### [facility] CLIA [id number] [address] [place] [address] [facility] OF [place] Hepatic function 2000 panelo n 05-21-2023 Albumin [Mass/Vol] 3.8 g/dL 3.5 - 5.0 g/dL [facility] ALP [Catalytic activity/Vol] 100 U/L 38 - 126 U/L [facility] ALT [Catalytic activity/Vol] 28 U/L 0 - 34 U/L [facility] AST [Catalytic activity/Vol] 81 U/L High 15 - 46 U/L [facility] Bilirubin [Mass/Vol] 0.5 mg/dL 0.2 - 1 .3 mg/dL [facility] Bilirubin.conjugated [Mass/Vol] 0.0 mg/dL 0.0 - 0.3 mg/dL [facility] Interpretation and review of laboratory results Abnormal [facility] Protein [Mass/Vol] 7.1 g/dL 6.3 - 8.2 g/dL [facility] Office Visit (Cardiology)on 05-17-2023 Follow-up visit Diagnoses/Problems Assessed Mild CAD (414.00) (I25.10) HTN (hypertension) (401.9) (I10) Orders HTN (hypertension) Changed: From Losartan Potassium 25 MG Oral Tablet TAKE 1 TABLET DAILY DIRECTED To Losartan Potassium 50 MG Oral Tablet TAKE 1 TABLET DAILY Patient Instructions Follow-up in 1 year Monitor blood pressures closely Obtain a blood pressure cuff Advised heart healthy diet and exercise Continue current medication regimen as prescribed Chief Complaint Follow-up appointment History of Present Illness 05/17/2023: Office visit Patient returns to clinic for follow-up appointment. She underwent echocardiogram which showed normal ejection fraction of 55 to 60% grade 1 diastolic dysfunction and normal RVSP. Coronary CTA was performed and showed only mild coronary artery calcification which was nonobstructive with a negative CT FFR result. Blood pressure today is 148/73 heart rate of 81 satting 90% on room air. Weight is 240 pounds. Patient does still endorse chest discomfort sometimes with exertion. No clear association with food. Most recent labs reviewed showing LDL of 83 total cholesterol 153 HDL 47 and triglycerides of 111. She is currently not on statin therapy. She is taking losartan 50 mg daily 03/19/2023 This is a 72-year-old female past with history notable for hypertension and type 2 diabetes who had an episode of chest pain roughly a year ago while some [facility]. She underwent work-up which included a regadenoson nuclear stress test per patient which was negative. She continue have on and off symptoms of chest pain which concerned her. Chest pain is left-sided sometimes rating to her left arm in her axilla region. Associated with activity. Her functional status is limited at baseline due to prior ankle and knee injuries. She does not have shortness of breath occasionally has palpitations. No nausea vomiting lightheadedness or syncopal events. She denies orthopnea or PND. Her EKG today shows sinus rhythm she has normal axis she is delayed R wave progression. Essential blood pressure 133/76 heart rate 79 satting 90% room air. Weight is 2 and 44 pounds. We do not have recent labs. 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) Arthralgia (719.40) (M25.50) Astigmatism of both eyes (367.20) (H52.203) Atypical chest pain (786.59) (R07.89) Back pain (724.5) (M54.9) Bilateral hip pain (719.45) (M25.551,M25.552) Bilateral myopia (367.1) (H52.13) Bilateral renal cysts (753.10) (N28.1) Bloating (787.3) (R14.0) Bronchitis, acute (466.0) (J20.9) Callus of foot (700) (L84) Cerebral cavernoma (228.02) (Q28.3) Chronic abdominal pain (789.00,338.29) (R10.9,G89.29) Chronic hyperglycemia (790.29) (R73.9) Chronic pain (338.29) (G89.29) Chronic pain of right hip (719.45,338.29) (M25.551,G89.29) Chronic right shoulder pain (719.41,338.29) (M25.511,G89.29) CI (convergence insufficiency) (378.83) (H51.11) Combined form of age-related cataract, both eyes (366.19) (H25.813) Combined form of age-related cataract, left eye (366.19) (H25.812) Combined form of age-related cataract, right eye (366.19) (H25.811) Controlled type 2 diabetes mellitus without complication, without long-term current use of insulin (250.00) (E11.9) Cough (786.2) (R05.9) Cyst of left breast (610.0) (N60.02) Cyst of ovary (620.2) (N83.209) Degenerative joint disease of knee, right (715.96) (M17.11) Dental plaque (523.6) (K03.6) Dermatitis, contact (692.9) (L25.9) Diabetes mellitus (250.00) (E11.9) Diarrhea (787.91) (R19.7) Difficulty in walking (719.7) (R26.2) Dry eye syndrome (375.15) (H04.129) Duodenal ulcer (532.90) (K26.9) Edema (782.3) (R60.9) Environmental allergies (V15.09) (Z91.09) Epigastric pain (789.06) (R10.13) Eye pressure (379.99) (H57.9) Flu vaccine need (V04.81) (Z23) Frequency of urination (788.41) (R35.0) 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) (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 Normal [facility] CT Angio Coronary Arteries w ith Heart Flowon 04-11-2023 CT Angio Coronary Arteries with Heart Flow Normal -[facility]- [place] Work Phone: th CTA CORONARY ART WITH HEA RTFLOW IF SCORE >30%.on 04-11-2023 CTA CORONARY ART WITH HEARTFLOW IF SCORE >30%. Patient Name: TRISTEN GOMEZ STUDY: CTA CORONARY ART WITH HEARTFLOW IF SCORE >30%.; 04/11/2023 1:41 pm INDICATION: chest pain, abnormal ekg R07.89: Atypical chest pain R94.31: Abnormal EKG. COMPARISON: None. ACCESSION NUMBER(S): [id number] ORDERING CLINICIAN: JODI AWAN TECHNIQUE: Using multi-detector CT technology, axial, sequential imaging with prospective gating was performed of the chest following the intravenous administration of contrast material. A low-osmolar contrast agent was used ( [id number]/90ml). In addition, CT-FFR analysis was also performed. The patient was premedicated with 15 mg i.v metoprolol and 0.8 mg sublingual nitroglycerin for heart rate control and coronary dilation, respectively. For optimization of anatomic evaluation, multiplanar reconstruction, maximum intensity projections, and advanced 3-D off-line postprocessing were performed on a dedicated stand-alone workstation under the direct supervision of the interpreting physician. CT Dose-Length Product (DLP): 1474.6 mGy/cm CT Dose Reduction Employed: Yes (Prospective triggering, iterative reconstruction) FINDINGS: POTENTIAL STUDY LIMITATIONS: None. CORONARY ARTERIES: Calcium score: Left main: 0 Lad: 0 Left circumflex 9.23 RCA: 0 Total 9.23 CORONARY ANATOMY: There is normal origin of the coronary arteries. LEFT MAIN CORONARY ARTERY: The left main is normal sized vessel that bifurcates into the LAD and circumflex. There is no significant atherosclerotic change or stenotic disease. LEFT ANTERIOR DESCENDING ARTERY: The LAD is a normal size vessel that wraps around the apex. It gives rise to 1 acute diagonal branches. Mild diffuse atherosclerosis appreciated. There is eccentric plaque in the proximal LAD with estimated luminal stenosis less than 30%. LEFT CIRCUMFLEX ARTERY: The LCX is a normal size vessel, which is non-dominant. It gives rise to 2 obtuse marginal branches. Luminal irregularities RIGHT CORONARY ARTERY: The RCA is a normal size vessel, which is dominant . It gives rise to a conus branch, chacho branch, and 1 acute marginal branches. In its distal segment it bifurcates into the PDA and PV branch. Luminal irregularities CARDIAC CHAMBERS: The cardiac chambers demonstrate normal atrioventricular and ventriculoarterial concordance, and systemic and pulmonary venous return. LEFT ATRIUM: Normal size RIGHT ATRIUM: Normal size INTERATRIAL SEPTUM: Intact. LEFT VENTRICLE: Normal size RIGHT VENTRICLE: Normal size AORTIC VALVE: The aortic valve is trileaflet in morphology. No calcifications. MITRAL VALVE: No thickening/calcificati on. THORACIC AORTA: The visualized thoracic aorta is normal in course, caliber, and contour. There is no acute aortic pathology, such as dissection, intramural hematoma, or contained rupture. The aortic arch is not included on this examination. PERICARDIUM: There is no pericardial effusion of thickening. CHEST: The chest wall is normal. No significant lymphadenopathy or mass is seen in limited images of the mediastinum. Limited imaging through the lungs reveals no gross abnormalities. No pleural effusion or pneumothorax. UPPER ABDOMEN: Limited imaging through the upper abdomen reveals no abnormalities of the visualized organs. IMPRESSION: 1. Right dominant system. 2. Normal coronary anatomy with mild nonobstructive coronary arterial disease. 3. CT FFR revealed no significant fractional flow changes. 4. Calcium score 9.23 Electronically signed by: JODI AWAN MD, PHD Normal [facility] Echocardiogramon 04-04-2023 Echocardiography Please click on the link to view the study images Normal [facility] Work Phone: Laboratory - Chemistry and C hemistry - challengeon 03-20-2023 Albumin BCP dye [Mass/Vol] 3.7 g/dL 3.4 - 5.0 -[facility]- [place] Work Phone: ALP [Catalytic activity/Vol] 94 U/L 33 - 136 -Cardiology- [place] Work Phone: ALT With P-5'-P [Catalytic activity/Vol] 27 U/L 7 - 45 -Cardiology- [place] Work Phone: Comment on above: Patients treated wit h Sulfasalazine may generate falsely decreased results for ALT. Anion gap [Moles/Vol] 14 mmol/L 10 - 20 - [facility]iology- [place] Work Phone: AST With P-5'-P [Catalytic activity/Vol] 26 U/L 9 - 39 [facility] [place] Work [facility]: Bilirubin [Mass/Vol] 0.5 mg/dL 0.0 - 1.2 [facility]- [place] Work Phone: Calcium [Mass/Vol] 9.4 mg/dL 8.6 - 10.6 [facility] [place] Work Phone: Chloride [Moles/Vol] 105 mmol/L 98 - 107 [facility]- [place] Work Phone: CO2 [Moles/Vol] 27 mmol/L 21 - 32 [facility]- [place] Work Phone: Creatinine [Mass/Vol] 0.88 mg/dL See Below - [facility] [place] Work Phone: Comment on above: Reference Range: 0.5 0 - 1.05 Glucose [Mass/Vol] 166 mg/dL above high threshold 74 - 99 -Cardiology- [place] Work Phone: Potassium [Moles/Vol] 4.6 mmol/L 3.5 - 5.3 - [facility]iology- [place] Work Phone: Protein [Mass/Vol] 6.7 g/dL 6.4 - 8.2 [facility] Work Phone: Sodium [Moles/Vol] 141 mmol/L 136 - 145 [facility] [place] Work Phone: Urea nitrogen [Mass/Vol] 17 mg/dL 6 - 23 [employer] [facility] [place] Work Phone: Laboratory - Hematology and Cell countson 03-20-2023 Erythrocyte distribution width (RBC) [Ratio] 13.2 % See Below [facility] [place] Work Phone: Comment on above: Reference Range: 11. 5 - 14.5 Hematocrit (Bld) [Volume fraction] 42.5 % See Below [facility] Work Phone: Comment on above: Reference Range: 36. 0 - 46.0 Hemoglobin (Bld) [Mass/Vol] 13.4 g/dL See Below [facility] Work Phone: Comment on above: Reference Range: 12. 0 - 16.0 MCHC (RBC) [Mass/Vol] 31.5 g/dL below low threshold See Below [facility] Work Phone: Comment on above: Reference Range: 32. 0 - 36.0 MCV (RBC) [Entitic vol] 95 fL 80 - 100 [facility] Work Phone: Platelets (Bld) [#/Vol] 319 10*3/uL 150 - 450 [employer] Work Phone: RBC (Bld) [#/Vol] 4.46 {x10E12/L} See Below [facility] Work Phone: Comment on above: Reference Range: 4.0 0 - 5.20 WBC (Bld) [#/Vol] 7.2 10*3/uL 4.4 - 11.3 [facility] [place] Work Phone: Lipid Panelon 03-20-2023 Cholesterol [Mass/Vol] 153 mg/dL 0 - 199 [employer] Work Phone: Comment on above: . AGE DESIRABLE BORD WENDY HIGH HIGH 0-19 Y 0 - 169 170 - 199 >/= 200 20-24 Y 0 - 189 190 - 224 >/= 225 >24 Y 0 - 199 200 - 239 >/= 240 All ranges are based on fasting samples. Specific therapeutic targets will vary based on patient-specific cardiac risk.. Pediatric guidelines reference:Pediatrics 2011, 128(S5). Adult guidelines reference: NCEP ATPIII Guidelines, MAGUI 2001, 258:2196-97. Venipuncture immediately after or during the administration of Metamizole may lead to falsely low results. Testing should be performed immediately prior to Metamizole dosing. Cholesterol in HDL [Mass/Vol] 47.3 mg/dL [employer] Work Phone: Comment on above: . AGE VERY LOW LOW N ORMAL HIGH 0-19 Y < 35 < 40 40-45 ---- 20-24 Y ---- < 40 >45 ---- >24 Y ---- < 40 40-60 >60. Cholesterol in LDL [Mass/Vol] 84 mg/dL 0 - 99 [employer] Work Phone: Comment on above: . NEAR BORD AGE OHLDEN RABLE OPTIMAL HIGH HIGH VERY HIGH 0-19 Y 0 - 109 --- 110-129 >/= 130 ---- 20-24 Y 0 - 119 --- 120-159 >/= 160 ---- >24 Y 0 - 99 100-129 130-159 160-189 >/=190. Cholesterol.total/Chol esterol in HDL [Mass ratio] 3.2 {ratio} [employer] Work Phone: Comment on above: REF VALUESDESIRABLE < 3.4HIGH RISK > 5.0 Triglyceride [Mass/Vol] 111 mg/dL 0 - 149 [employer] Work Phone: Comment on above: . AGE DESIRABLE BORD WENDY HIGH HIGH VERY HIGH 0 D-90 D 19 - 174 ---- ---- ----91 D- 9 Y 0 - 74 75 - 99 >/= 100 ---- 10-19 Y 0 - 89 90 - 129 >/= 130 ---- 20-24 Y 0 - 114 115 - 149 >/= 150 ---- >24 Y 0 - 149 150 - 199 200- 499 >/= 500. Venipuncture immediately after or during the administration of Metamizole may lead to falsely low results. Testing should be performed immediately prior to Metamizole dosing. Lipid Panel 22 mg/dL 0 - 40 [facility] [place] Work Phone: No Panel Informationon 03-20 0.0 {/100_WBC} 0.0-0.0 [facility] [place] Work Phone: 70 {mL/min/1.73m2} >90 [facility] [place] Work Phone: Comment on above: CALCULATIONS OF ROSA MATED GFR ARE PERFORMED USING THE 2020 CKD-EPI STUDY REFIT EQUATION WITHOUT THE RACE VARIABLE FOR THE IDMS-TRACEABLE CREATININE METHODS.https://jasn.asnjournals.org/content/early//A SN.6848791745 Blood Pressure Cuff Sizeon 0 03-19-2023 Tobacco use status CP b) No [facility] [place] [facility] [place] Work Phone: Blood Pressure Cuff Size Adult [facility] [place] [facility] [place] Work Phone: No Panel Informationon 03-19 [email or web address]?[email or web address] yDateTime?PatientID=[id number]&Date= 3&Time=08%3a22%3a19%3a 00&TestType=ECG&Site=1 &OutputType=PDF&Ext=PD F [facility] [place] Work Phone: Normal sinus rhythm [facility]- [place] Work Phone: Abnormal [facility] [place] Work Phone: [phone] [facility] [place] Work Phone: [phone] [facility] [place] Work Phone: [phone] [facility] [place] Work Phone: [phone] [facility] [place] Work Phone: [phone] [facility] [place] Work Phone: 13 1 [facility] [place] Work Phone: 43 1 [facility] [place] Work Phone: -15 1 [facility] [place] Work Phone: 37 1 [facility] [place] Work Phone: [phone] [facility] [place] Work Phone: [phone] 1 [facility] [place] Work Phone: 86 1 [facility] [place] Work Phone: 144 1 [facility] [place] Work Phone: 78 1 [facility] [place] Work Phone: Office Visit (Cardiology)on 03-19-2023 Follow-up visit Diagnoses/Problems Health Maintenance/Risks Encounter for preventive health examination (V70.0) (Z00.00) Assessed HTN (hypertension) (401.9) (I10) Abnormal EKG (794.31) (R94.31) Atypical chest pain (786.59) (R07.89) Allergic rhinitis (477.9) (J30.9) Orders Abnormal EKG Comprehensive Metabolic Panel; Status:Active; Requested for:19Mar2023; Abnormal EKG, Atypical chest pain CT Angio Coronary Arteries with Heart Flow; Status:Hold For - Scheduling; Requested for:19Mar2023; Patient taking Metformin or Derivatives? : No Radiologist to Determine Optimal Study : Y What are the patient's signs and symptoms? : chest pain, abnormal ekg Echocardiogram; Status:Hold For - Scheduling; Requested for:19Mar2023; Allergic rhinitis Complete Blood Count; Status:Active; Requested for:19Mar2023; Atypical chest pain Start: Corlanor 7.5 MG Oral Tablet; Take 1 tablet 1 hour before Coronary CTA Start: Metoprolol Tartrate 50 MG Oral Tablet; 1 pill one hour before [facility] EKG Electrocardiogram- 12 Lead; Status:Active - Perform Order; Requested for:19Mar2023; Lipid Panel; Status:Active; Requested for:19Mar2023; HTN (hypertension) Renew: Losartan Potassium 25 MG Oral Tablet; TAKE 1 TABLET DAILY DIRECTED Patient Instructions Coronary CTA Take metoprolol 50 mg and ivabradine 7.5 mg 1 hour prior to test Echocardiogram Increase losartan to 50 mg daily Fasting blood test Follow-up once testing is completed Chief Complaint Chest pain History of Present Illness02/27/2023: Office This is a 72-year-old female past with history notable for hypertension and type 2 diabetes who had an episode of chest pain roughly a [facility] She underwent work-up which included a regadenoson nuclear stress test per patient which was negative. She continue have on and off symptoms of chest pain which concerned her. Chest pain is left-sided sometimes rating to her left arm in her axilla region. Associated with activity. Her functional status is limited at baseline due to prior ankle and knee injuries. She does not have shortness of breath occasionally has palpitations. No nausea vomiting lightheadedness or syncopal events. She denies orthopnea or PND. Her EKG today shows sinus rhythm she has normal axis she is delayed R wave progression. Essential blood pressure 133/76 heart rate 79 satting 90% room air. Weight is 2 and 44 pounds. We do not have recent labs. 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) Arthralgia (719.40) (M25.50) Astigmatism of both eyes (367.20) (H52.203) Back pain (724.5) (M54.9) Bilateral hip pain (719.45) (M25.551,M25.552) Bilateral myopia (367.1) (H52.13) Bilateral renal cysts (753.10) (N28.1) Bloating (787.3) (R14.0) Bronchitis, acute (466.0) (J20.9) Callus of foot (700) (L84) Cerebral cavernoma (228.02) (Q28.3) Chronic abdominal pain (789.00,338.29) (R10.9,G89.29) Chronic hyperglycemia (790.29) (R73.9) Chronic pain (338.29) (G89.29) Chronic pain of right hip (719.45,338.29) (M25.551,G89.29) Chronic right shoulder pain (719.41,338.29) (M25.511,G89.29) CI (convergence insufficiency) (378.83) (H51.11) Combined form of age-related cataract, both eyes (366.19) (H25.813) Combined form of age-related cataract, left eye (366.19) (H25.812) Combined form of age-related cataract, right eye (366.19) (H25.811) Controlled type 2 diabetes mellitus without complication, without long-term current use of insulin (250.00) (E11.9) Cough (786.2) (R05.9) Cyst of left breast (610.0) (N60.02) Cyst of ovary (620.2) (N83.209) Degenerative joint disease of knee, right (715.96) (M17.11) Dental plaque (523.6) (K03.6) Dermatitis, contact (692.9) (L25.9) Diabetes mellitus (250.00) (E11.9) Diarrhea (787.91) (R19.7) Difficulty in walking (719.7) (R26.2) Dry eye syndrome (375.15) (H04.129) Duodenal ulcer (532.90) (K26.9) Edema (782.3) (R60.9) Environmental allergies (V15.09) (Z91.09) Epigastric pain (789.06) (R10.13) Eye pressure (379.99) (H57.9) Flu vaccine need (V04.81) (Z23) Frequency of urination (788.41) (R35.0) 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 Normal [facility] ULTRASOUND LIMITED BREASTon 02-27-2023 ULTRASOUND LIMITED BREAST Patient Name: TRISTEN GOMEZ STUDY: BREAST ULTRASOUND; 02/27/2023 9:58 am ACCESSION NUMBER(S): [id number] ORDERING CLINICIAN: ARIES HILL INDICATION: Left nipple and axillary pain. Negative screening mammogram 12/25/2022. COMPARISON: None. FINDINGS: Targeted ultrasound was performed of the left subareolar region and left axilla by a registered team otr truck driver for remote interpretation. No suspicious findings are identified. 2 morphologically normal lymph nodes are identified in the axilla. IMPRESSION: No sonographic abnormality at the area of pain in the left breast and axilla. Clinical follow-up is recommended. No targeted sonographic evidence of malignancy. BI-RADS CATEGORY: Category: 1 - Negative. Recommendation: 1 Year Screening. For any future breast imaging appointments, please call [phone]). Electronically signed by: CATALINO ERNST MD Normal [facility] Ultrasound Limited [place] 02-27-2023 MG Breast Screening Normal [facility] [place] [address] [place] Work Phone: Laboratory - Microbiology an d Antimicrobial susceptibilityOrdered By: Dr. Diego on 01-17-2023 Bacteria identified Cx Nom (Bld) No growth in 5 days. [facility] Absolute lymphocyte countOrd ered By: Dr. Diego on 01-11-2023 Lymphocytes Auto (Unsp spec) [#/Vol] 1.77 10*3/uL 0.83-4.51 [facility] Basophil percentageOrdered B y: Dr. Diego on 01-11-2023 Basophils/100 WBC (Bld) 0.2 % 0-1 [facility] Chloride [Moles/Vol] 105 mmol/L 98-[address] [facility] Eosinophils/100 WBC (Bld) 0.1 % 0-5 [facility] Glucose [Mass/Vol] 182 mg/dL 74-106 [facility] Comment on above: Fasting Glucose resu lt greater than or equal to 126 mg/dL suggests DIABETES MELLITUS per A.D.A. criteria. Neutrophils (Bld) [#/Vol] 11.3 10*3/uL 2.0-7.7 [facility] Neutrophils/100 WBC (Bld) 82.3 % 47-70 [facility] Potassium [Moles/Vol] 4.5 mmol/L 3.5-5.1 [facility] Sodium [Moles/Vol] 134 mmol/L 136-145 [facility] WBC (Bld) [#/Vol] 13.7 10*3/uL 4.4-11.0 [facility] Blood erythrocytes count (nu mber/volume)Ordered By: Dr. Digeo on 01-11-2023 RBC (Bld) [#/Vol] 4.68 10*6/uL 4.2-5.4 [facility] Blood hemoglobin measurement (mass/volume)Ordered By: Dr. Diego on 01-11-2023 Hemoglobin (Bld) [Mass/Vol] 14.4 g/dL 12.0-15.0 [facility] Blood lymphocytes/100 leukoc ytesOrdered By: Dr. Diego on 01-11-2023 Lymphocytes/100 WBC (Bld) 12.9 % 19-41 [facility] Blood monocytes/100 leukocyt esOrdered By: Dr. Diego on 01-11-2023 Monocytes/100 WBC (Bld) 4.2 % 0-10 [facility] Blood platelet mean volumeOr dered By: Dr. Diego on 01-11-2023 Platelet mean volume (Bld) [Entitic vol] 8.9 fL 6.2-12.0 [facility] Determination of erythrocyte mean corpuscular volume (MCV)Ordered By: Dr. Diego on 01-11-2023 MCV (RBC) [Entitic vol] 94.0 fL 81-99 [facility] Erythrocyte sedimentation ra teOrdered By: Dr. Diego on 01-11-2023 ESR (Bld) [Velocity] 45 mm/h 0-[address] [facility] Hematocrit Auto (Bld) [Volum e fraction]Ordered By: Dr. Diego on 01-11-2023 Hematocrit (Bld) [Volume fraction] 44.0 % 37-47 [facility] Laboratory - Chemistry and C hemistry - challengeOrdered By: Dr. Diego on 01-11-2023 CO2 [Moles/Vol] 25.0 mmol/L 21.0-32.0 [facility] Urea nitrogen/Creatinine [Mass ratio] 18.5 mg/mg 10-20 [facility] Laboratory - Hematology and Cell countsOrdered By: Dr. Diego on 01-11-2023 Erythrocyte distribution width (RBC) [Entitic vol] 44.1 fL 35.1-43.9 [facility] Erythrocyte distribution width (RBC) [Ratio] 12.8 % 11.6-14.6 [facility] Immature granulocytes/100 WBC (Bld) 0.300 % 0.0-0.9 [facility] Comment on above: IG% - Immature Granu locytes (promyelocytes, myelocytes and metamyelocytes) > 1% indicates that a LEFT SHIFT is Present. MCH (RBC) [Entitic mass] 30.8 pg 27.0-32.0 [facility] Nucleated RBC/100 WBC (Bld) [Ratio] 0 % 0-5 [facility] MCHC Auto (RBC) [Mass/Vol]Or dered By: Dr. Diego on 01-11-2023 MCHC (RBC) [Mass/Vol] 32.7 g/dL 32-36 [facility] No Panel InformationOrdered By: Dr. Diego on 01-11-2023 Estimated Creatinine Clearance Calc 51.74 ml/min [facility] Estimated GFR (MDRD) Amer 77 mL/min >60 [facility] Comment on above: GFR Calc Estimated GFR (MDRD) Non-Af Amer 64 mL/min >60 [facility] Comment on above: Non- GFR Calc Platelets bldOrdered By: Dr. Diego on 01-11-2023 Platelets (Bld) [#/Vol] 301 10*3/uL 150-450 [facility] Serum or plasma C reactive p rotein measurement (mass/volume)Ordered By: Dr. Diego on 01-11-2023 CRP [Mass/Vol] 6.38 mg/L 0.0-3.0 [facility] Comment on above: C-Reactive Protein ( CRP) provides useful information for thediagnosis, therapy and monitoring of inflammatory processesand associated diseases. For the evaluation of Relative Riskfor Cardiovascular Disease, a High Sensitivity CRP (HSCRP)should be ordered. Serum or plasma calcium diane urement (mass/volume)Ordered By: Dr. Diego on 01-11-2023 Calcium [Mass/Vol] 9.4 mg/dL 8.5-10.1 [facility] Serum or plasma creatinine m easurement (mass/volume)Ordered By: Dr. Diego on 01-11-2023 Creatinine [Mass/Vol] 0.92 mg/dL 0.55-1.02 [facility] Comment on above: The validity of the calculated GFR & GFRAA in patients over 70 years has not been determined. Clinical correlation is essential. Serum or plasma urea nitroge n measurement (mass/volume)Ordered By: Dr. Diego on 01-11-2023 Urea nitrogen [Mass/Vol] 17 mg/dL 7-18 [facility] Thin prep Papanicolaou smear with manual screeningOrdered By: Dr. Diego on 01-11-2023 Thin prep Papanicolaou smear with manual screening 4 5-15 [facility] DIGITAL MAMM SCREENING W/ TO [place] 12-25-2022 DIGITAL MAMM SCREENING W/ YESENIA Patient Name: TRISTEN GOMEZ STUDY: DIGITAL MAMM SCREENING W/ YESENIA; 12/25/2022 10:22 am ACCESSION NUMBER(S): [id number] ORDERING CLINICIAN: ARIES HILL INDICATION: Screening. COMPARISON: 11/01/2021, 10/26/2020, 11/09/2019 FINDINGS: 2D and tomosynthesis images were reviewed at 1 mm slice thickness. The breast tissue is almost entirely fatty. Stable benign-appearing oil cysts in the upper outer and central left breast.. No suspicious masses or calcifications are identified. IMPRESSION: No mammographic evidence of malignancy. BI-RADS CATEGORY: Category: 2 - Benign. Recommendation: 1 Year Screening. For any future breast imaging appointments, please call [phone]). Patient letter sent SNORM Electronically signed by: CHELO DEL CID MD Normal [facility] Culture, urineOrdered By: Hodan Vale on 12-22-2022 Bacteria identified Cx Nom (U) Mixed Gram Pos & Gram Neg Org [facility] Basophil percentageOrdered B y: Sparkle Vale on 12-21-2022 Basophil percentage >100 SEEN /hpf 0-5 [facility] Bilirubin Test strip Ql (U)O rdered By: Sparkle Vale on 12-21-2022 Bilirubin Ql (U) Negative Negative [facility] Ketones Test strip Ql (U)Ord ered By: Sparkle Vale on 12-21-2022 Ketones Ql (U) Negative Negative [facility] Laboratory - Chemistry and C hemistry - challengeon 12-21-2022 Bilirubin Ql (U) Negative [facility] Glucose Ql (U) Negative [facility] Ketones Ql (U) Negative [facility] pH (U) 6.5 [pH] [facility] Specific gravity (U) [Rel density] 1.015 [facility] Urobilinogen (U) [Mass/Vol] 0.2354129 mg/dL [facility] Laboratory - Hematology and Cell countson 12-21-2022 Hemoglobin Ql (U) Trace [facility] Laboratory - Specimen inform ationon 12-21-2022 Clarity (U) Hazy [facility] Color (U) Yellow [facility] Laboratory - Urinalysison Nitrite Ql (U) Positive [facility] Protein Ql (U) Negative [facility] Mucus LM Ql (Urine sed)Order ed By: Sparkle Vale on 12-21-2022 Mucus Ql (Urine sed) 0 SEEN /hpf [facility] Nitrite Test strip Ql (U)Ord ered By: Sparkle Vale on 12-21-2022 Nitrite Ql (U) Positive Negative [facility] No Panel Informationon 12-21 Urine Leukocytes Positive [facility] Urine Non-Hemolyzed Blood Trace [facility] Protein Test strip Ql (U)Ord ered By: Sparkle Vale on 12-21-2022 Protein Ql (U) 30 mg/dl Negative [facility] Squamous epithelial cells de tection in urine sediment by light microscopyOrdered By: Sparkle Vale on 12-21-2022 Epithelial cells.squamous LM Ql (Urine sed) 0 SEEN /hpf 5-10 [facility] Urine blood detectionOrdered By: Sparkle Vale on 12-21-2022 RBC Ql (U) 25 /ul Negative [facility] RBC Ql (U) 0 SEEN /hpf 0-5 [facility] Urine clarityOrdered By: Rigoberto Vale on 12-21-2022 Clarity (U) Sl. Cloudy Clear [facility] Urine color determinationOrd ered By: Sparkle Vale on 12-21-2022 Color (U) Yellow Yellow [facility] Urine glucose detectionOrder ed By: Sparkle Vale on 12-21-2022 Glucose Ql (U) Normal mg/dl Normal [facility] Urine leukocyte esterase det ection by dipstickOrdered By: Sparkle Vale on 12-21-2022 Leukocyte esterase Test strip Ql (U) 500 /ul Negative [facility] Urine pHOrdered By: Sparkle Vale on 12-21-2022 pH (U) 6.0 [pH] 5.0 - 8.0 [facility] Urine sediment bacteria coun t by microscopy (number/high power field)Ordered By: Sparkle Vale on 12-21-2022 Bacteria LM.HPF (Urine sed) [#/Area] 2 /[HPF] None Seen [facility] Urine specific gravity measu rementOrdered By: Sparkle Vale on 12-21-2022 Specific gravity (U) [Rel density] 1.025 1.002-1.030 [facility] Urobilinogen Auto test strip Ql (U)Ordered By: Sparkle Vale on 12-21-2022 Urobilinogen Ql (U) Normal mg/dl Normal [facility] Laboratory - Hematology and Cell countson 11-28-2022 HbA1c (Bld) [Mass fraction] 6.5 % 4.2-6.3 [facility] Established Visit (Orthopaed ic Surgery)on 11-12-2022 Established Visit (Orthopaedic Surgery) Diagnoses/Problems Assessed Lower back pain (724.2) (M54.50) Orders Lower back pain Xray BN Spine, Lumbosacral; 2 or 3 Views; Status:Resulted - Requires Verification,Retrospec tive By Protocol Authorization; Done: [id number] 10:45AM Radiologist to Determine Optimal Study : Y What are the patient's signs and symptoms? 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 She continues to do well. She is doing aquatic physical therapy and feels very good. She denies any radicular pain in her legs. Overall she is feeling quite well. Incisions are well-healed without evidence of infection. Strength is normal in the lower extremities bilaterally. Slightly forward leaning gait using a rollator walker. X-rays show stable alignment of her fusion. I advised continued exercise and activities as tolerated. She can follow-up with me on an as-needed basis. This note was dictated using speech recognition software and was not corrected for spelling or grammatical errors. 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) Arthralgia (719.40) (M25.50) Astigmatism of both eyes (367.20) (H52.203) Back pain (724.5) (M54.9) Bilateral hip pain (719.45) (M25.551,M25.552) Bilateral myopia (367.1) (H52.13) Bilateral renal cysts (753.10) (N28.1) Bloating (787.3) (R14.0) Bronchitis, acute (466.0) (J20.9) Callus of foot (700) (L84) Cerebral cavernoma (228.02) (Q28.3) Chronic abdominal pain (789.00,338.29) (R10.9,G89.29) Chronic hyperglycemia (790.29) (R73.9) Chronic pain (338.29) (G89.29) Chronic pain of right hip (719.45,338.29) (M25.551,G89.29) Chronic right shoulder pain (719.41,338.29) (M25.511,G89.29) CI (convergence insufficiency) (378.83) (H51.11) Combined form of age-related cataract, both eyes (366.19) (H25.813) Combined form of age-related cataract, left eye (366.19) (H25.812) Combined form of age-related cataract, right eye (366.19) (H25.811) Controlled type 2 diabetes mellitus without complication, without long-term current use of insulin (250.00) (E11.9) Cough (786.2) (R05.9) Cyst of left breast (610.0) (N60.02) Cyst of ovary (620.2)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 4.4-11.0 [facility] Work Phone: Bilirubin Test strip Ql (U)o n 04-11-2022 Bilirubin Ql (U) Negative Negative [facility] Work Phone: Blood erythrocytes count (nu mber/volume)on 04-11-2022 RBC (Bld) [#/Vol] 3.85 10*6/uL 4.2-5.4 [facility] Work Phone: Blood hemoglobin measurement (mass/volume)on 04-11-2022 Hemoglobin (Bld) [Mass/Vol] 12.0 g/dL 12.0-15.0 [facility] Work Phone: Blood lymphocytes/100 leukoc yteson 04-11-2022 Lymphocytes/100 WBC (Bld) 31.7 % 19-41 [facility] Work Phone: Blood monocytes/100 leukocyt eson 04-11-2022 Monocytes/100 WBC (Bld) 6.8 % 0-10 [facility] Work Phone: Blood platelet mean volumeon 04-11-2022 Platelet mean volume (Bld) [Entitic vol] 8.9 fL 6.2-12.0 [facility] Work Phone: Determination of erythrocyte mean corpuscular volume (MCV)on 04-11-2022 MCV (RBC) [Entitic vol] 95.6 fL 81-99 [facility] Work Phone: Glucose Glucometer (BldC) [M ass/Vol]on 04-11-2022 Glucose [Mass/Vol] 90 mg/dL 74-106 [facility] Work Phone: Comment on above: MANAGEMENT OF PATIEN T CARE PER NURSING PROTOCOL Hematocrit Auto (Bld) [Volum e fraction]on 04-11-2022 Hematocrit (Bld) [Volume fraction] 36.8 % 37-47 [facility] Work Phone: Ketones Test strip Ql (U)on 04-11-2022 Ketones Ql (U) Negative Negative [facility] Work Phone: Laboratory - Chemistry and C hemistry - challengeon 04-11-2022 CO2 [Moles/Vol] 27.0 mmol/L 21.0-32.0 [facility] Work Phone: Urea nitrogen/Creatinine [Mass ratio] 19.0 mg/mg - [facility] Work Phone: Laboratory - Hematology and Cell countson 04-11-2022 Erythrocyte distribution width (RBC) [Entitic vol] 44.7 fL 35.1-43.9 [facility] Work Phone: Erythrocyte distribution width (RBC) [Ratio] 12.8 % 11.6-14.6 [facility] Work Phone: Immature granulocytes/100 WBC (Bld) 0.400 % 0.0-0.9 [facility] Work Phone: Comment on above: IG% - Immature Granu locytes (promyelocytes, myelocytes and metamyelocytes) > 1% indicates that a LEFT SHIFT is Present. MCH (RBC) [Entitic mass] 31.2 pg 27.0-32.0 [facility] Work Phone: Nucleated RBC/100 WBC (Bld) [Ratio] 0 % 0-5 [facility] Work Phone: MCHC Auto (RBC) [Mass/Vol]on 04-11-2022 MCHC (RBC) [Mass/Vol] 32.6 g/dL 32-36 [facility] Work Phone: Mucus LM Ql (Urine sed)on Mucus Ql (Urine sed) 0 SEEN /hpf [facility] Work Phone: Nitrite Test strip Ql (U)on 04-11-2022 Nitrite Ql (U) Positive Negative [facility] Work Phone: No Panel Informationon 04-11 Estimated Creatinine Clearance Calc 48.30 ml/min [facility] Work Phone: Estimated GFR (MDRD) Amer 92 mL/min >60 [facility] Work Phone: Comment on above: GFR Calc Estimated GFR (MDRD) Non-Af Amer 76 mL/min >60 [facility] Work Phone: Comment on above: Non- GFR Calc Platelets bldon 04-11-2022 Platelets (Bld) [#/Vol] 282 10*3/uL 150-450 [facility] Work Phone: Protein Test strip Ql (U)on 04-11-2022 Protein Ql (U) 15 mg/dl Negative [facility] Work Phone: Serum or plasma calcium diane urement (mass/volume)on 04-11-2022 Calcium [Mass/Vol] 8.9 mg/dL 8.5-10.1 [facility] Work Phone: Serum or plasma creatinine m easurement (mass/volume)on 04-11-2022 Creatinine [Mass/Vol] 0.79 mg/dL 0.55-1.02 [facility] Work Phone: Comment on above: The validity of the calculated GFR & GFRAA in patients over 70 years has not been determined. Clinical correlation is essential. Serum or plasma urea nitroge n measurement (mass/volume)on 04-11-2022 Urea nitrogen [Mass/Vol] 15 mg/dL 7-18 [facility] Work Phone: Squamous epithelial cells de tection in urine sediment by light microscopyon 04-11-2022 Epithelial cells.squamous LM Ql (Urine sed) 0-5 SEEN /hpf 5-10 [facility] Work Phone: Thin prep Papanicolaou smear with manual screeningon 04-11-2022 Thin prep Papanicolaou smear with manual screening 6 5-15 [facility] Work Phone: Urine blood detectionon 03-24 RBC Ql (U) 50 /ul Negative [facility] Work Phone: RBC Ql (U) 0-5 SEEN /hpf 0-5 [facility] Work Phone: Urine clarityon 04-11-2022 Clarity (U) Clear Clear [facility] Work Phone: Urine color determinationon 04-11-2022 Color (U) Yellow Yellow [facility] Work Phone: Urine glucose detectionon Glucose Ql (U) Normal mg/dl Normal [facility] Work Phone: Urine leukocyte esterase det ection by dipstickon 04-11-2022 Leukocyte esterase Test strip Ql (U) 500 /ul Negative [facility] Work Phone: Urine pHon 04-11-2022 pH (U) 6.0 [pH] 5.0 - 8.0 [facility] Work Phone: Urine sediment bacteria coun t by microscopy (number/high power field)on 04-11-2022 Bacteria LM.HPF (Urine sed) [#/Area] 2 /[HPF] None Seen [facility] Work Phone: Urine specific gravity measu rementon 04-11-2022 Specific gravity (U) [Rel density] 1.015 1.002-1.030 [facility] Work Phone: Urobilinogen Auto test strip Ql (U)on 04-11-2022 Urobilinogen Ql (U) Normal mg/dl Normal [facility] Work Phone: Absolute lymphocyte counton 04-10-2022 Lymphocytes Auto (Unsp spec) [#/Vol] 1.84 10*3/uL 0.83-4.51 [facility] Work Phone: Basophil percentageon 2021 Basophils/100 WBC (Bld) 0.4 % 0-1 [facility] Work Phone: Chloride [Moles/Vol] 109 mmol/L 98-[address] [facility] Work Phone: Eosinophils/100 WBC (Bld) 2.0 % 0-5 [facility] Work Phone: Glucose [Mass/Vol] 157 mg/dL 74-106 [facility] Work Phone: Comment on above: Fasting Glucose resu lt greater than or equal to 126 mg/dL suggests DIABETES MELLITUS per A.D.A. criteria. Neutrophils (Bld) [#/Vol] 4.2 10*3/uL 2.0-7.7 [facility] Work Phone: Neutrophils/100 WBC (Bld) 62.1 % 47-70 [facility] Work Phone: Potassium [Moles/Vol] 4.8 mmol/L 3.5-5.1 [facility] Work Phone: Comment on above: Moderate Hemolysis, Result may be falsely increased. Sodium [Moles/Vol] 141 mmol/L 136-145 [facility] Work Phone: WBC (Bld) [#/Vol] 6.8 10*3/uL 4.4-11.0 [facility] Work Phone: Blood erythrocytes count (nu mber/volume)on 04-10-2022 RBC (Bld) [#/Vol] 4.42 10*6/uL 4.2-5.4 [facility] Work Phone: Blood hemoglobin measurement (mass/volume)on 04-10-2022 Hemoglobin (Bld) [Mass/Vol] 13.8 g/dL 12.0-15.0 [facility] Work Phone: Blood lymphocytes/100 leukoc yteson 04-10-2022 Lymphocytes/100 WBC (Bld) 26.9 % 19-41 [facility] Work Phone: Blood monocytes/100 leukocyt eson 04-10-2022 Monocytes/100 WBC (Bld) 8.3 % 0-10 [facility] Work Phone: Blood platelet mean volumeon 04-10-2022 Platelet mean volume (Bld) [Entitic vol] 8.9 fL 6.2-12.0 [facility] Work Phone: Determination of erythrocyte mean corpuscular volume (MCV)on 04-10-2022 MCV (RBC) [Entitic vol] 97.1 fL 81-99 [facility] Work Phone: Hematocrit Auto (Bld) [Volum e fraction]on 04-10-2022 Hematocrit (Bld) [Volume fraction] 42.9 % 37-47 [facility] Work Phone: Laboratory - Chemistry and C hemistry - challengeon 04-10-2022 CO2 [Moles/Vol] 28.0 mmol/L 21.0-32.0 [facility] Work Phone: Urea nitrogen/Creatinine [Mass ratio] 14.3 mg/mg 10-20 [facility] Work Phone: Laboratory - Hematology and Cell countson 04-10-2022 Erythrocyte distribution width (RBC) [Entitic vol] 46.3 fL 35.1-43.9 [facility] Work Phone: Erythrocyte distribution width (RBC) [Ratio] 12.8 % 11.6-14.6 [facility] Work Phone: Immature granulocytes/100 WBC (Bld) 0.300 % 0.0-0.9 [facility] Work Phone: Comment on above: IG% - Immature Granu locytes (promyelocytes, myelocytes and metamyelocytes) > 1% indicates that a LEFT SHIFT is Present. MCH (RBC) [Entitic mass] 31.2 pg 27.0-32.0 [facility] Work Phone: Nucleated RBC/100 WBC (Bld) [Ratio] 0 % 0-5 [facility] Work Phone: MCHC Auto (RBC) [Mass/Vol]on 04-10-2022 MCHC (RBC) [Mass/Vol] 32.2 g/dL 32-36 [facility] Work Phone: No Panel Informationon 04-10 Troponin I High Sensitivity 11 pg/mL 3.0-54.0 [facility] Work Phone: Comment on above: Please Note: New Nikky t Units and Gender Specific Reference Ranges. For more information see Policy Stat Procedure [place] High Sensitivity Troponin (TNIH) and attachments. Estimated Creatinine Clearance Calc 53.08 ml/min [facility] Work Phone: Estimated GFR (MDRD) Amer 78 mL/min >60 [facility] Work Phone: Comment on above: GFR Calc Estimated GFR (MDRD) Non-Af Amer 65 mL/min >60 [facility] Work Phone: Comment on above: Non- GFR Calc Troponin I High Sensitivity 12 pg/mL 3.0-54.0 [facility] Work Phone: Comment on above: Please Note: New Nikky t Units and Gender Specific Reference Ranges. For more information see Policy Stat Procedure [place] High Sensitivity Troponin (TNIH) and attachments. Platelets bldon 04-10-2022 Platelets (Bld) [#/Vol] 337 10*3/uL 150-450 [facility] Work Phone: Serum or plasma calcium diane urement (mass/volume)on 04-10-2022 Calcium [Mass/Vol] 9.3 mg/dL 8.5-10.1 [facility] Work Phone: Serum or plasma creatinine m easurement (mass/volume)on 04-10-2022 Creatinine [Mass/Vol] 0.91 mg/dL 0.55-1.02 [facility] Work Phone: Comment on above: The validity of the calculated GFR & GFRAA in patients over 70 years has not been determined. Clinical correlation is essential. Serum or plasma urea nitroge n measurement (mass/volume)on 04-10-2022 Urea nitrogen [Mass/Vol] 13 mg/dL 7-18 [facility] Work Phone: Thin prep Papanicolaou smear with manual screeningon 04-10-2022 Thin prep Papanicolaou smear with manual screening 4 5-15 [facility] Work Phone: Basophil percentageon 2021 Bilirubin [Mass/Vol] 0.30 mg/dL 0.20-1.[address] [facility] Work Phone: Comment on above: For patients on eltr ombopag therapy, use of Dimension [place] TBIL is not recommended. Chloride [Moles/Vol] 106 mmol/L 98-[address] [facility] Work Phone: Cholesterol [Mass/Vol] 140 mg/dL <200 [facility] Work Phone: Comment on above: <200 mg/dL Desirable 200-240 mg/dL Borderline >240 mg/dL High Risk Glucose [Mass/Vol] 126 mg/dL 74-106 [facility] Work Phone: Comment on above: Fasting Glucose resu lt greater than or equal to 126 mg/dL suggests DIABETES MELLITUS per A.D.A. criteria. Potassium [Moles/Vol] 4.1 mmol/L 3.5-5.1 [facility] Work Phone: Protein [Mass/Vol] 7.1 g/dL 6.4-8.2 [facility] Work Phone: Sodium [Moles/Vol] 142 mmol/L 136-145 [facility] Work Phone: Triglyceride [Mass/Vol] 155 mg/dL <199 [facility] Work Phone: Comment on above: The drugs N-Acetylcy steine and Metamizole may falsely depress this assay.Serum Triglycerides Reference Interval Normal <150 mg/dL Borderline high 150 - 199 mg/dL High 200 - 499 mg/dL Very High > or = 500 mg/dL Laboratory - Chemistry and C hemistry - challengeon 02-05-2022 ALP [Catalytic activity/Vol] 115 U/L 45-117 [facility] Work Phone: ALT [Catalytic activity/Vol] 48 U/L 13-56 [facility] Work Phone: CO2 [Moles/Vol] 29.0 mmol/L 21.0-32.0 [facility] Work Phone: Globulin (S) [Mass/Vol] 4.1 g/dL 2.2-4.2 [facility] Work Phone: Urea nitrogen/Creatinine [Mass ratio] 15.9 mg/mg 10-20 [facility] Work Phone: No Panel Informationon 02-05 Urine Microalbumin/Creatinin e Ratio 31.3 mg/g CRE <30 [facility] Work Phone: Estimated GFR (MDRD) Amer 97 mL/min >60 [facility] Work Phone: Comment on above: GFR Calc Estimated GFR (MDRD) Non-Af Amer 81 mL/min >60 [facility] Work Phone: Comment on above: Non- GFR Calc Thyroid Stimulating Hormone (TSH) 1.42 uIU/mL 0.358-3.74 [facility] Work Phone: Serum or plasma albumin diane urement (mass/volume)on 02-05-2022 Albumin [Mass/Vol] 3.0 g/dL 3.2-5.0 [facility] Work Phone: Serum or plasma albumin/glob ulin mass ratioon 02-05-2022 Albumin/Globulin [Mass ratio] 0.7 {ratio} 0.9-2.4 [facility] Work Phone: Serum or plasma calcium diane urement (mass/volume)on 02-05-2022 Calcium [Mass/Vol] 9.3 mg/dL 8.5-10.1 [facility] Work Phone: Serum or plasma cholesterol in HDL measurement (mass/volume)on 02-05-2022 Cholesterol in HDL [Mass/Vol] 46 mg/dL >40 [facility] Work Phone: Comment on above: The drugs N-Acetylcy steine and Metamizole may falsely depress this assay. Reference Range HDL <40 mg/dL Low HDL Cholesterol HDL >or= 60 mg/dL High HDL Cholesterol Serum or plasma cholesterol in VLDL measurement (mass/volume)on 02-05-2022 Cholesterol in VLDL [Mass/Vol] 31 mg/dL 5-40 [facility] Work Phone: Serum or plasma creatinine m easurement (mass/volume)on 02-05-2022 Creatinine [Mass/Vol] 0.75 mg/dL 0.55-1.02 [facility] Work Phone: Comment on above: The validity of the calculated GFR & GFRAA in patients over 70 years has not been determined. Clinical correlation is essential. Serum or plasma low density lipoprotein (LDL) cholesterol measurement (mass/volume)on 02-05-2022 Cholesterol in LDL [Mass/Vol] 63 mg/dL 0-130 [facility] Work Phone: Serum or plasma urea nitroge n measurement (mass/volume)on 02-05-2022 Urea nitrogen [Mass/Vol] 12 mg/dL 7-18 [facility] Work Phone: Thin prep Papanicolaou smear with manual screeningon 02-05-2022 Thin prep Papanicolaou smear with manual screening 8.2 mg/L NO RANGE EST. [facility] Work Phone: Thin prep Papanicolaou smear with manual screening 33 U/L 15-37 [facility] Work Phone: Thin prep Papanicolaou smear with manual screening 7 5-15 [facility] Work Phone: Urine creatinine measurement (mass/volume)on 02-05-2022 Creatinine (U) [Mass/Vol] 26.30 mg/dL NO RANGE EST. [facility] Work Phone: Whole blood hemoglobin A1c/t otal hemoglobin ratio (mass fraction)on 02-05-2022 HbA1c (Bld) [Mass fraction] 6.9 % 3.8-5.6 [facility] Work Phone: Comment on above: Normal < 5.7 % Predi abetic 5.7 - 6.4 % Diabetic >or= 6.5 % Please note range changes. Laboratory - Hematology and Cell countson 12-18-2021 HbA1c (Bld) [Mass fraction] 7.2 % 4.2-6.3 [facility] Work Phone: VL Venous Duplex US Lower Ex t Lefton 06-28-2021 VL Venous Duplex US Lower Ext Left Patient Name: TRISTEN GOMEZ Ultrasound ACCESSION EXAM DATE/TIME PROCEDURE ORDERING PROVIDER [id number] 06/28/2021 15:30 EDT VL Venous Duplex US STANLEY CHRISTAL Lower Ext Left CPT code 03942 Reason For Exam (VL Venous Duplex US Lower Ext Left) lt leg pain Report LEFT LOWER EXTREMITY VENOUS DUPLEX ULTRASOUND CLINICAL HISTORY: Left leg pain Grayscale and color Doppler sonographic images of the left lower extremity were obtained. Comparisons available: None. FINDINGS: There is no evidence of deep venous thrombus in the visualized portions of the left common femoral vein, superficial femoral vein, popliteal vein, or visualized veins of the upper calf. Respiratory variation and augmentation to calf pressure is noted. IMPRESSION: No evidence of deep venous thrombus in the evaluated veins of the left lower extremity from the inguinal ligaments to the upper calf. Report Dictated on Final Dictating Physician: MD DOVE JONATHAN R Signed Date and Time: 06/28/2021 3:34 pm Signed by: MD DOVE JONATHAN R Transcribed Date and Time: 06/28/2021 3:35 Cardiovascular ACCESSION EXAM DATE/TIME PROCEDURE [id number] 06/28/2021 15:30 EDT VL Venous Duplex US Lower Ext Left CPT code 97136 Reason For Exam (VL Venous Duplex US Lower Ext Left) lt leg pain Cardiovascular Report LEFT LOWER EXTREMITY VENOUS DUPLEX ULTRASOUND CLINICAL HISTORY: Left leg pain Grayscale and color Doppler sonographic images of the left lower extremity were obtained. Comparisons available: None. FINDINGS: There is no evidence of deep venous thrombus in the visualized portions of the left common femoral vein, superficial femoral vein, popliteal vein, or visualized veins of the upper calf. Respiratory variation and augmentation to calf pressure is noted. IMPRESSION: No evidence of deep venous thrombus in the evaluated veins of the left lower extremity from the inguinal ligaments to the upper calf. Report Dictated on Final Dictating Physician: MD PTETY, CHA Rosado Signed Date and Time: 06/28/2021 3:34 pm Signed by: MD DOVE JONATHAN R Transcribed Date and Time: 06/28/2021 3:35 Normal [facility] ENDOSCOPY REPORTOrdered B y: 3m Scanning on 06-08-2021 [facility] Work Phone: Surgical Pathologyon 021 Surgical Pathology [id number] [facility] PATHOLOGY AND LABORATORY MEDICINE [address] [place] [address] FINAL SURGICAL PATHOLOGY REPORT NAME: TRISTEN GOMEZ : 1950 70 Y F BILLING NO.: [id number] LOCATION: 1XEO PROCEDURE 06/08/2021 DATE: SURGEON: CINTHIA FAITH MD RECEIVED 06/08/2021 DATE: ATTENDING: CINTHIA FAITH MD REPORT DATE: 06/09/2021 COPIES TO: DIAGNOSIS: A. STOMACH, GASTRIC BIOPSIES: - CHRONIC INACTIVE GASTRITIS WITH REACTIVE CHANGES. - NEGATIVE FOR H. PYLORI BY H&E STAIN. B. STOMACH, POLYP, BIOPSY: - FUNDIC GLAND POLYP WITH FOCAL CHRONIC INFLAMMATION. C. ESOPHAGUS, GE JUNCTION, BIOPSY: - SQUAMOUS MUCOSA WITH ELONGATED PAPILLAE, BASAL CELL HYPERPLASIA, AND EOSINOPHILS CONSISTENT WITH GASTROESOPHAGEAL OPEN (GERD). - GLANDULAR MUCOSA; NEGATIVE FOR INTESTINAL METAPLASIA OR DYSPLASIA. D. ESOPHAGUS, BIOPSY: - SQUAMOUS MUCOSA WITH ELONGATED PAPILLAE, BASAL CELL HYPERPLASIA, AND EOSINOPHILS. / Signature> MATT INGRAM CLINICAL INFORMATION: Dysphagia SPECIMEN: (A) GASTRIC BIOPSY (B) GASTRIC POLYP, BIOPSY (C) GASTRO-ESOPHAGEAL JUNCTION, BIOPSY (D) ESOPHAGUS BIOPSY GROSS DESCRIPTION: A. Received in formalin labeled gastric biopsies are three irregularly-shaped fragments of pink-stanley soft tissue, the smallest measures 0.2 x 0.1 x 0.1 cm and the largest measures 0.3 x 0.2 x 0.1 cm. All is submitted in one cassette. B. Received in formalin labeled gastric polyp are two irregularly-shaped fragments of pink-stanley soft tissue, each measuring approximately 0.2 x 0.2 x 0.1 cm. Both submitted in one cassette. C. Received in formalin labeled GE junction is an elongated segment of wispy white to red soft tissue measuring 0.6 x 0.3 x <0.1 cm. Submitted in one cassette. D. Received in formalin labeled esophagus are multiple fragments of wispy white to red soft tissue aggregating to 0.6 x 0.6 x <0.1 cm. All is submitted in one cassette. BSC/0RW Disclaimer: The following statement applies to all immunohistochemistry, in situ hybridization, molecular studies, and immunofluorescence testing. The use of one or more reagents in the above tests is regulated as an analyte specific reagent (ASR). These tests were developed and their performance characteristics determined by the clinical laboratories of [facility]. They have not been cleared by the US Food and Drug Administration (FDA). The FDA has determined that such clearance or approval is not necessary. All the above immunostains were performed on paraffin embedded tissue. Appropriate positive and negative controls (where applicable) were run in parallel with the patient's specimen; these controls showed expected staining pattern, with acceptable intensity of staining. Immunohistochemical assays have not been validated on decalcified tissues. Results should be interpreted with caution given the raised possibility of false negativity on decalcified specimens. Professional Performing Location: [place] [address]. DEPARTMENT OF PATHOLOGY AND LABORATORY MEDICINE [place], [place] [address] [email or web address] Normal [facility] CNTHERAPYon 04-20-2021 CNTHERAPY OT/PT/Speech Visit (PTMCRM) TRISTEN GOMEZ ([id number]) 1950 F BLD Date Time Provider Department 04/20/21 11:00 AM [facility] Date Time Provider Department Center 04/20/2021 11:00 AM [id number], LAURA PTMCRM [facility] Reason for Visit: PT Discharge [752] Primary Visit Diagnosis:Leg weakness, bilateral [R29.898] Allergies As of Date: 04/20/2021 Noted Allergy Reaction ASPIRIN 11/03/2016 16 - Unknown CODEINE 04/24/2012 14 - Other: See Comments DEMEROL (MEPERIDINE (PF)) 04/24/2012 14 - Other: See Comments ERYTHROMYCIN 04/24/2012 14 - Other: See Comments HYDROCODONE 08/19/2015 14 - Other: See Comments Comments: She attributes her eye sensitivity to this medicine; photophobia and being unable to watch television LYSINE 11/03/2016 16 - Unknown SEPTRA (SULFAMETHOXAZOLE-TRIM ETHO*04/24/2012 5 - Intolerance SINEMET (CARBIDOPA-LEVODOPA) 11/03/2016 16 - Unknown TRIMETHOPRIM 11/03/2016 16 - Unknown TYLENOL (ACETAMINOPHEN) 11/03/2016 16 - Unknown Date Reviewed: 02/25/2017 Reviewed by: Misael Loya Ma - Fully Assessed Prescriptions as of 04/20/2021 - blood sugar diagnostic ([employer] GroupTOUCH ULTRA TEST) test strip Use as instructed FOR TESTING blood sugar three times daily - levothyroxine (LEVOTHROID) 50 mcg tablet Take 1 tablet by mouth daily before breakfast. - lancets (ONE TOUCH DELICA) 33 gauge misc 1 Lancet once daily. - Fluoxetine HCl 20 mg tablet Take 20 mg by mouth once daily. 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 Make sure you are using a visit which is associated with an episode. Therapist That Will Oversee The Plan Of Care: Leyla Mahan Start of Care Date: 03/20/21 Onset Date: 03/10/20 Plan of Care Certification Date: 03/20/21 Next Certification Due Date: 05/12/21 Please see Physical Therapist note dated for today for aquatic therapy visit documentation for today's visit. [facility] CNTHERAPY OT/PT/Speech Visit (PTMCRM) TRISTEN GOMEZ ([id number]) 1950 F BLD Date Time Provider Department 04/20/21 10:00 AM LEYLA MAHAN Date Time Provider Department Center 04/20/2021 10:00 AM [id number] MAHAN [facility] Reason for Visit: PT Discharge [752] Primary Visit Diagnosis:Leg weakness, bilateral [R29.898] Allergies As of Date: 04/20/2021 Noted Allergy Reaction ASPIRIN 11/03/2016 16 - Unknown CODEINE 04/24/2012 14 - Other: See Comments DEMEROL (MEPERIDINE (PF)) 04/24/2012 14 - Other: See Comments ERYTHROMYCIN 04/24/2012 14 - Other: See Comments HYDROCODONE 08/19/2015 14 - Other: See Comments Comments: She attributes her eye sensitivity to this medicine; photophobia and being unable to watch television LYSINE 11/03/2016 16 - Unknown SEPTRA (SULFAMETHOXAZOLE-TRIM ETHO*04/24/2012 5 - Intolerance SINEMET (CARBIDOPA-LEVODOPA) 11/03/2016 16 - Unknown TRIMETHOPRIM 11/03/2016 16 - Unknown TYLENOL (ACETAMINOPHEN) 11/03/2016 16 - Unknown Date Reviewed: 02/25/2017 Reviewed by: Misael Loya Ma - Fully Assessed Prescriptions as of 04/20/2021 - blood sugar diagnostic (ONETOUCH ULTRA TEST) test strip Use as instructed FOR TESTING blood sugar three times daily - levothyroxine (LEVOTHROID) 50 mcg tablet Take 1 tablet by mouth daily before breakfast. - lancets (ONE TOUCH DELICA) 33 gauge misc 1 Lancet once daily. - Fluoxetine HCl 20 mg tablet Take 20 mg by mouth once daily. 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 pt stopped taking prednisone 01/10/16 No esomeprazole or fluoxetine in the home Progress Notes: Leyla Mahan, PT 04/20/2021 12:20 PM Addendum Episode Visit Count: 6 Therapist That Will Oversee The Plan Of Care: Leyla Mahan Start of Care Date: 03/20/21 Onset Date: 03/10/20 Plan of Care Certification Date: 03/20/21 Next Certification Due Date: 05/12/21 Patient Identified by Name and Date of : Yes Addend: added aquatic note dated this date REHABILITATION AND SPORTS THERAPY PHYSICAL THERAPY DISCONTINUANCE OF CARE PLAN OF CARE UPDATE: Assessment: Tristen Gomez is discontinued from Physical Therapy services due to Patient/Clinician mutual decision to discontinue current plan of care.. Patient was seen for 6 visits from Start of Care Date: 03/20/21 to 04/20/2021 and treatment included: Therapeutic exercise, Aquatic PT and Patient/Family/Caregiv er Education. Patient reports no overall change in pain complaints since beginning aquatic therapy. She reports that she has been doing most of these exercises on her own pre-COVID. She reports having more back and leg pain at times after aquatic therapy sessions. She reports having increased difficulty sleeping. She reports that she does everything that she needs to do with pain. She continues to have weakness of abdominal and trunk mm. Some improvement in leg strength since last measured. She continues to have poor posture in sitting. Patient reports no overall functional change in condition since starting PT and wishes to continue with aquatic exercises on her own at this time. See below for updated goal status. She verbalizes understanding of the aquatic exercises that she needs to complete to help her with mobility and strength. Patient has PT contact information should she have additional questions or concerns. Goals for Episode of Care: created on 03/20/21 through 05/12/21: Updated 04/20/21: Patient will decrease pain rating by 2 points to meet minimal clinical important difference for numeric pain rating scale. (Not met) Stand / Walk For 15-20 minutes without pain/symptoms. (not met-standing and walking tolerance is still painful) Sleep through night without pain/symptoms. (Not met- continues to awaken when she rolls at night) Patient will be able to correct postural deviations with moderate assist verbal cues in order to to decrease current pain. (MET) Knowledgeable regarding prophylaxis. (Not met- continues to have pain complaints) Patient will increase strength of B legs and trunk mm by at least 1/3 mm grade to allow for improve ability to complete ADLs. (Progressing for legs; not met for trunk or abdominals) Patient will increase flexibility of B hamstrings to minimal tightness to improve mechanics and decrease pain. (Not met) Aquatic Goal: Patient will be independent with aquatic program and transition to a community pool. (M (more content not included)... Normal [facility] CNTHERAPYon 04-17-2021 CNTHERAPY OT/PT/Speech Visit (PTMCRM) TRISTEN GOMEZ ([id number]) 1950 F BLD Date Time Provider Department 04/17/21 9:00 AM [facility] Date Time Provider Department Center 04/17/2021 9:00 AM [id number][facility]: Physical Therapy [503] Primary Visit Diagnosis:Back pain, unspecified back location, unspecified back pain laterality, unspecified chronicity [M54.9] Other Visit Diagnoses:Kyphosis of thoracic region, unspecified kyphosis type [M40.204] Leg weakness, bilateral [R29.898] Allergies As of Date: 04/17/2021 Noted Allergy Reaction ASPIRIN 11/03/2016 16 - Unknown CODEINE 04/24/2012 14 - Other: See Comments DEMEROL (MEPERIDINE (PF)) 04/24/2012 14 - Other: See Comments ERYTHROMYCIN 04/24/2012 14 - Other: See Comments HYDROCODONE 08/19/2015 14 - Other: See Comments Comments: She attributes her eye sensitivity to this medicine; photophobia and being unable to watch television LYSINE 11/03/2016 16 - Unknown SEPTRA (SULFAMETHOXAZOLE-TRIM ETHO*04/24/2012 5 - Intolerance SINEMET (CARBIDOPA-LEVODOPA) 11/03/2016 16 - Unknown TRIMETHOPRIM 11/03/2016 16 - Unknown TYLENOL (ACETAMINOPHEN) 11/03/2016 16 - Unknown Date Reviewed: 02/25/2017 Reviewed by: Misael Loya Ma - Fully Assessed Prescriptions as of 04/17/2021 - blood sugar diagnostic ([employer] GroupTOUCH ULTRA TEST) test strip Use as instructed FOR TESTING blood sugar three times daily - levothyroxine (LEVOTHROID) 50 mcg tablet Take 1 tablet by mouth daily before breakfast. - lancets (ONE TOUCH DELICA) 33 gauge misc 1 Lancet once daily. - Fluoxetine HCl 20 mg tablet Take 20 mg by mouth once daily. 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 Fatigue limites therapy greater than 30 minutes. Noted improve hip and lumbar nobility. PLAN FOR NEXT VISIT: focus on lumbar mobility SUBJECTIVE: Patient Reason for Visit: Pt reports okay after last visit. No change in back and leg pain. No falls. 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 Pain: Pain Pain Level: 6 Pain Location: Low Back/Lumbar Spine - Left;Low Back/Lumbar Spine - Right;Leg - Left;Leg - Right;Foot - Left;Foot - Right Description: Sharp;Dull Frequency: Intermittent;Continuou s Post Treatment Pain Post Treatment Pain Level: No Change OBJECTIVE MEASURES WITH LEVEL OF FUNCTION: Patient ambulates to/from locker room without device. Patient enters/exited the pool via stairs, SBA. In pool prior to therapy Patient accompanied by clinician in water throughout session, SBA unless otherwise noted. TREATMENT: Aquatic Therapy: Footwear on pool deck pre-treatment: Yes, patient wearing appropriate footwear and appeared safe on pool deck Footwear on pool deck post-treatment: Yes, patient wearing appropriate footwear and appeared safe on pool deck Aquatic Therapy (18140): 1 1: See note below for exercises performed WATER DEPTH 3'9 - 4'0 - Giant dynamic steps forward/ retro, paddle #5, shoulder flex/ext x 2 length each - Giant dynamic side step right/left, paddle #5,B shoulder abd/add x 2 length - Dynamic march, paddle #5, rows x 1 lengths WATER DEPTH 3'9 -R/L hamstring stretch 2 x 30 seconds each, back to pool wall -R/L hamstring curls alt x 10 each, 2 hand support at pool wall -R/L LAQ's x10 each with back to pool wall, cues for ankle DF on end range extension WATER DEPTH 3'9 - 4'0' (light) -Bilateral heel and toe raises X 15 each, 2 support at pool wall -Clockwise/countercloc kwise 'hoola hoop', tolerable range, with 2 hands support at pool wall, 2 x 15 each direction -R/L trunk rotation with hands resting on kickboard, x 15 each direction -Static stand, kickboard push down x 15 Skilled Intervention: Patient was educated in proper exercise technique and purpose for exercises. Skilled judgment was provided in selection of appropriate inter (more content not included)... Normal [facility] CNTHERAPYon 04-06-2021 CNTHERAPY OT/PT/Speech Visit (PTMCRM) TRSITEN GOMEZ ([id number]) 1950 F BLD Date Time Provider Department 04/06/21 2:[address] [facility] Date Time Provider Department Center 04/06/2021 2:45 PM [id number], LAURA [facility] Reason for Visit: Physical Therapy [503] Primary Visit Diagnosis:Chronic bilateral low back pain with bilateral sciatica [M54.42, M54.41, G89.29] Other Visit Diagnoses:Kyphosis of thoracic region, unspecified kyphosis type [M40.204] Leg weakness, bilateral [R29.898] Allergies As of Date: 04/06/2021 Noted Allergy Reaction ASPIRIN 11/03/2016 16 - Unknown CODEINE 04/24/2012 14 - Other: See Comments DEMEROL (MEPERIDINE (PF)) 04/24/2012 14 - Other: See Comments ERYTHROMYCIN 04/24/2012 14 - Other: See Comments HYDROCODONE 08/19/2015 14 - Other: See Comments Comments: She attributes her eye sensitivity to this medicine; photophobia and being unable to watch television LYSINE 11/03/2016 16 - Unknown SEPTRA (SULFAMETHOXAZOLE-TRIM ETHO*04/24/2012 5 - Intolerance SINEMET (CARBIDOPA-LEVODOPA) 11/03/2016 16 - Unknown TRIMETHOPRIM 11/03/2016 16 - Unknown TYLENOL (ACETAMINOPHEN) 11/03/2016 16 - Unknown Date Reviewed: 02/25/2017 Reviewed by: Misael Loya Ma - Fully Assessed Prescriptions as of 04/06/2021 - blood sugar diagnostic (ONETOUCH ULTRA TEST) test strip Use as instructed FOR TESTING blood sugar three times daily - levothyroxine (LEVOTHROID) 50 mcg tablet Take 1 tablet by mouth daily before breakfast. - lancets (ONE TOUCH DELICA) 33 gauge misc 1 Lancet once daily. - Fluoxetine HCl 20 mg tablet Take 20 mg by mouth once daily. 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 Patient agrees with therapist to decrease time in pool today. Added Paddle to dynamic warm up, one set fatiguing patient. Increased rest break from muscle fatigue, intermittent back spasms, groin pain. PLAN FOR NEXT VISIT: monitor pain, increase actvity with less rest breaks SUBJECTIVE: Patient Reason for Visit: Pt reports increased pain after last visit back to both feet. Came to pool on own day after therapy appointment. Increased pain last night , hard time walking, no device used. Pain: Pain Pain Level: 7 Pain Location: Low Back/Lumbar Spine - Left;Low Back/Lumbar Spine - Right;Leg - Left;Leg - Right;Foot - Left;Foot - Right Description: Sore;Aching;Spasm Frequency: Continuous;Intermitten t Post Treatment Pain Post Treatment Pain Level: No Change OBJECTIVE MEASURES WITH LEVEL OF FUNCTION: Patient ambulates to/from locker room without device. Patient enters/exited the pool via stairs, SBA. In pool prior to therapy Patient accompanied by clinician in water throughout session, SBA unless otherwise noted. TREATMENT: Aquatic Therapy: Footwear on pool deck pre-treatment: Yes, patient wearing appropriate footwear and appeared safe on pool deck Footwear on pool deck post-treatment: Yes, patient wearing appropriate footwear and appeared safe on pool deck Aquatic Therapy (12810): 1 1: See note below for exercises performed WATER DEPTH 3'6 - 4'0 - Giant dynamic steps forward/ retro, one set with paddle #5, shoulder flex/ext x 2 length each - Giant dynamic side step right/left, one set with paddle #5,B shoulder abd/add x 2 length - Dynamic march, one set with paddle #5, rows x 2 lengths WATER DEPTH 3'6 -R/L hamstring stretch 2 x 30 seconds each, back to pool wall -R/L hamstring curls alt x 10 each, 2 hand support at pool wall -R/L LAQ's x10 each with back to pool wall, cues for ankle DF on end range extension WATER DEPTH 3'9 -Bilateral heel and toe raises X 15 each, 2 support at pool wall -Clockwise/countercloc kwise 'hoola hoop', tolerable range, with 2 hands support at pool wall, 1 x 15 each direction -R/L trunk rotation with hands resting on kickboard, x 10 (more content not included)... [facility] CNTHERAPYon 04-03-2021 CNTHERAPY OT/PT/Speech Visit (PTMCRM) TRISTEN GOMEZ ([id number]) 1950 F ZEVD Date Time Provider Department 04/03/21 9:45 AM PRICNE MCGRATH PTMCRM Date Time Provider Department Center 04/03/2021 9:45 AM [id number], LAURA [facility] Reason for Visit: Physical Therapy [503] Primary Visit Diagnosis:Chronic bilateral low back pain with bilateral sciatica [M54.42, M54.41, G89.29] Other Visit Diagnoses:Kyphosis of thoracic region, unspecified kyphosis type [M40.204] Leg weakness, bilateral [R29.898] Allergies As of Date: 04/03/2021 Noted Allergy Reaction ASPIRIN 11/03/2016 16 - Unknown CODEINE 04/24/2012 14 - Other: See Comments DEMEROL (MEPERIDINE (PF)) 04/24/2012 14 - Other: See Comments ERYTHROMYCIN 04/24/2012 14 - Other: See Comments HYDROCODONE 08/19/2015 14 - Other: See Comments Comments: She attributes her eye sensitivity to this medicine; photophobia and being unable to watch television LYSINE 11/03/2016 16 - Unknown SEPTRA (SULFAMETHOXAZOLE-TRIM ETHO*04/24/2012 5 - Intolerance SINEMET (CARBIDOPA-LEVODOPA) 11/03/2016 16 - Unknown TRIMETHOPRIM 11/03/2016 16 - Unknown TYLENOL (ACETAMINOPHEN) 11/03/2016 16 - Unknown Date Reviewed: 02/25/2017 Reviewed by: Misael Loya Ma - Fully Assessed Prescriptions as of 04/03/2021 - blood sugar diagnostic (ONETOUCH ULTRA TEST) test strip Use as instructed FOR TESTING blood sugar three times daily - levothyroxine (LEVOTHROID) 50 mcg tablet Take 1 tablet by mouth daily before breakfast. - lancets (ONE TOUCH DELICA) 33 gauge misc 1 Lancet once daily. - Fluoxetine HCl 20 mg tablet Take 20 mg by mouth once daily. 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 Intermittent fatigue and muscle spasms lumbar to feet requiring standing rest break. Patient fatigued after 30 minutes though agree to continue. PLAN FOR NEXT VISIT: add paddle rows SUBJECTIVE: Patient Reason for Visit: Pt reports sore lumbar down after last visit. Pain all the time lumbar to feet. no falls Pain: Pain Pain Level: 8 Pain Location: Back;Leg - Left;Leg - Right Description: Sharp;Spasm Frequency: Continuous;Intermitten t Post Treatment Pain Post Treatment Pain Level: No Change OBJECTIVE MEASURES WITH LEVEL OF FUNCTION: Patient ambulates to/from locker room without device. Patient enters/exited the pool via stairs, SBA. Patient accompanied by clinician in water throughout session, SBA unless otherwise noted. TREATMENT: Aquatic Therapy: Footwear on pool deck pre-treatment: Yes, patient wearing appropriate footwear and appeared safe on pool deck Footwear on pool deck post-treatment: Yes, patient wearing appropriate footwear and appeared safe on pool deck Aquatic Therapy (82397): 1 1: See note below for exercises performed WATER DEPTH 3'6 - 4'0 - Giant dynamic steps forward/ retro,intermittent hand support on pool wall x 3 length each - Giant dynamic side step right/left, no hand support x 2 length - Dynamic november x 2, intermittent UE support pool wall WATER DEPTH 3'9 -R/L hamstring stretch 2 x 30 seconds each, back to pool wall -R/L hamstring curls alt x 10 each, 2 hand support at pool wall -R/L LAQ's x10 each with back to pool wall, cues for ankle DF on end range extension -Bilateral heel and toe raises X 15 each, 2 support at pool wall -Double leg squats with ab bracing on standing x15 , 2 hand support at pool wall -Clockwise/countercloc kwise 'hoola hoop', tolerable range, with 2 hands support at pool wall, 1 x 10 each direction -R/L trunk rotation with hands resting on kickboard, x 5 each direction -Static stand, kickboard push down x 10 Skilled Intervention: Patient was educated in proper exercise technique and purpose for exercises. Skilled judgment was provided in selection of appropriate interventions. Skilled judgment u (more content not included)... Normal [facility] CNTHERAPYon 03-22-2021 CNTHERAPY OT/PT/Speech Visit (PTMCRM) TRISTEN GOMEZ ([id number]) 1950 F BLD Date Time Provider Department 03/22/21 1:[address] [facility] Date Time Provider Department Center 03/22/2021 1:00 PM [id number], LAURA [facility] Reason for Visit: Physical Therapy [503] Primary Visit Diagnosis:Chronic midline low back pain with bilateral sciatica [M54.41, M54.42, G89.29] Other Visit Diagnoses:Kyphosis of thoracic region, unspecified kyphosis type [M40.204] Leg weakness, bilateral [R29.898] Allergies As of Date: 03/22/2021 Noted Allergy Reaction ASPIRIN 11/03/2016 16 - Unknown CODEINE 04/24/2012 14 - Other: See Comments DEMEROL (MEPERIDINE (PF)) 04/24/2012 14 - Other: See Comments ERYTHROMYCIN 04/24/2012 14 - Other: See Comments HYDROCODONE 08/19/2015 14 - Other: See Comments Comments: She attributes her eye sensitivity to this medicine; photophobia and being unable to watch television LYSINE 11/03/2016 16 - Unknown SEPTRA (SULFAMETHOXAZOLE-TRIM ETHO*04/24/2012 5 - Intolerance SINEMET (CARBIDOPA-LEVODOPA) 11/03/2016 16 - Unknown TRIMETHOPRIM 11/03/2016 16 - Unknown TYLENOL (ACETAMINOPHEN) 11/03/2016 16 - Unknown Date Reviewed: 02/25/2017 Reviewed by: Misael Loya Ma - Fully Assessed Prescriptions as of 03/22/2021 Sig: BLOOD SUGAR DIAGNOSTIC STRIPS Use as instructed FOR TESTING* LEVOTHYROXINE 50 MCG TABLET Take 1 tablet by mouth daily * LANCETS 33 GAUGE 1 Lancet once daily. * FLUOXETINE 20 MG TABLET Take 20 mg by mouth once rickey* Progress Notes: Prince Mcgrath PTA 03/22/2021 4:46 PM Signed Episode Visit Count: 2 Therapist That Will Oversee The Plan Of Care: Leyla Mahan Start of Care Date: 03/20/21 Onset Date: 03/10/20 Plan of Care Certification Date: 03/20/21 Next Certification Due Date: 05/12/21 Patient Identified by Name and Date of : Yes REHABILITATION AND SPORTS THERAPY PHYSICAL THERAPY TREATMENT NOTE ASSESSMENT: Tristen Rice Gomez required one step commends. Increased back pain performing hamstring curl with tactile cuing to correct form,stopped. Able to increase gastroc and hamstring stretch hold second set, with patient compliance. Increased back pain with most exercises, Less pain with lumbar rotation. Exercises limited by back pain resulting in tears explaining to therapist. Stopped deep water exercises when patient removed noodle abruptly and was unsafe. Moved patient to shallow water and discussed safety in deep water, using floatation to obtain NWB and/or belt and hand support, patient upset with explanation. Will revisit next visit if patient is compliant with safety. PLAN FOR NEXT VISIT: monitor pain level, safety in deep water SUBJECTIVE: Patient Reason for Visit: Pt reports back painthat goes down both legs. Sleeps on right side, unable to sleep on left. Sits on a pillow in car and chair at home. Does not use a cane. Pain: Pain Pain Level: 9 Pain Location: Back;Leg - Left;Leg - Right Description: Sharp Frequency: Continuous Post Treatment Pain Post Treatment Pain Level: No Change OBJECTIVE MEASURES WITH LEVEL OF FUNCTION: Patient ambulates to/from locker room without device. Patient enters/exited the pool via stairs, SBA. Patient accompanied by clinician in water throughout session, SBA unless otherwise noted. TREATMENT: Aquatic Therapy: Footwear on pool deck pre-treatment: Yes, patient wearing appropriate footwear and appeared safe on pool deck Footwear on pool deck post-treatment: Yes, patient wearing appropriate footwear and appeared safe on pool deck Aquatic Therapy (58919): 1 WATER DEPTH 3'6 - 4'0 - Giant dynamic steps forward/ retro,intermittent hand support on pool wall x 2 length each - Giant dynamic side step right/left, Intermittent hand support x 2 length - Dynamic november x 2 WATER DEPTH 3'6 -R/L gastroc stretch x 10 sec hold, x 20 seconds each, 2 hand support at pool wall -R/L hamstring stretch 2 x 30 seconds each, back to pool wall -R/L hamstring curls x 1 each, 2 hand support at pool wall (unable, increased left back pain) -R/L LAQ's x10 each with back to pool wall, cues for ankle DF on end range extension -Bilateral heel and toe raises X 15 each, 2 support at pool wall -R/L SLR flex/extend, abd/add x10 each, 1-2 hand support at pool wall -Double leg squats with ab bracing on standing x10 , 2 hand support at pool wall Water Depth 5'0 (noodle under arms, unable to use, uncomfortable): -Bilateral bike (forward) x 15 seconds each, 2 hand support at pool wall Skilled Intervention: Patient was educated in proper exercise technique and purpose for exercises. Skilled judgment was provided in selection of appropriate interventions. Skilled judgment used to assess appropriate program for balance and coordination activity. Patient education: Proper hydratio (more content not included)... [facility] CNTHERAPYon 03-20-2021 CNTHERAPY OT/PT/Speech Visit (PTMCRM) TRISTEN GOMEZ ([id number]) 1950 F BLD Date Time Provider Department 03/20/21 9:30 AM LEYLA MAHAN PTMCR Date Time Provider Department Alda 03/20/2021 9:30 AM [id number], REBECCA PTMCRM [facility] Reason for Visit: PT Eval [747] Patient Education [91] Primary Visit Diagnosis:Spinal stenosis, lumbar region, without neurogenic claudication [M48.061] Other Visit Diagnoses:Back pain, unspecified back location, unspecified back pain laterality, unspecified chronicity [M54.9] Leg weakness, bilateral [R29.898] Kyphosis of thoracic region, unspecified kyphosis type [M40.204] Allergies As of Date: 03/20/2021 Noted Allergy Reaction ASPIRIN 11/03/2016 16 - Unknown CODEINE 04/24/2012 14 - Other: See Comments DEMEROL (MEPERIDINE (PF)) 04/24/2012 14 - Other: See Comments ERYTHROMYCIN 04/24/2012 14 - Other: See Comments HYDROCODONE 08/19/2015 14 - Other: See Comments Comments: She attributes her eye sensitivity to this medicine; photophobia and being unable to watch television LYSINE 11/03/2016 16 - Unknown SEPTRA (SULFAMETHOXAZOLE-TRIM ETHO*04/24/2012 5 - Intolerance SINEMET (CARBIDOPA-LEVODOPA) 11/03/2016 16 - Unknown TRIMETHOPRIM 11/03/2016 16 - Unknown TYLENOL (ACETAMINOPHEN) 11/03/2016 16 - Unknown Date Reviewed: 02/25/2017 Reviewed by: Misael Loya Ma - Fully Assessed Prescriptions as of 03/20/2021 Sig: BLOOD SUGAR DIAGNOSTIC STRIPS Use as instructed FOR TESTING* LEVOTHYROXINE 50 MCG TABLET Take 1 tablet by mouth daily * LANCETS 33 GAUGE 1 Lancet once daily. * FLUOXETINE 20 MG TABLET Take 20 mg by mouth once rickey* Progress Notes: Leyla Mahan, PT 03/21/2021 6:58 AM Signed Episode Visit Count: 1 Therapist That Will Oversee The Plan Of Care: Leyla Mahan Start of Care Date: 03/20/21 Onset Date: 03/10/20 Plan of Care Certification Date: 03/20/21 Next Certification Due Date: 05/12/21 Patient Identified by Name and Date of : Yes REHABILITATION AND SPORTS THERAPY PHYSICAL THERAPY EVALUATION PLAN OF CARE: Assessment: Tristen Gomez presents with the diagnosis of back pain. She presents with impairments of decreased lumbar ROM, decreased leg strength, difficulty with sleeping and limited sitting/standing tolerance. She has very limited tolerance to activity in the clinic. She is unable to perform DKTC or tolerate lying on her stomach. She presents with expected decrease in ROM after fusion but is very guarded and limited with mobility. She uses her hands heavily with sit <--> stand transfers. She is able to lift and carry heavy bags with supplies for her and her into PT session. She demonstrates difficulty with bed mobility. She is very tearful with attempts at hook lying posiiton. She may benefit from skilled therapy services to improve functional mobility/strength and decrease pain to allow for improved daily functioning Classification Low Back Pain Subgroup Classification: Unweighting subgroup: recommended visits 6. Unweighting Subgroup Classification based on: LE symptoms distal to the knee;high level of irritability to weight bearing Prognosis: Fair Fair due to: clinical presentation;chronic nature of impairments;limited tolerance to activity Goals for Episode of Care: created on 03/20/21 through 05/12/21 Patient will decrease pain rating by 2 points to meet minimal clinical important difference for numeric pain rating scale. Stand / Walk For 15-20 minutes without pain/symptoms. Sleep through night without pain/symptoms. Patient will be able to correct postural deviations with moderate assist verbal cues in order to to decrease current pain . Knowledgeable regarding prophylaxis. Patient will increase strength of B legs and trunk mm by at least 1/3 mm grade to allow for improve ability to complete ADLs. Patient will increase flexibility of B hamstrings to minimal tightness to improve mechanics and decrease pain. Aquatic Goal: Patient will be independent with aquatic program and transition to a community pool. Patient Goals: find out what other exercises she can do to relieve the pain. Planned Interventions, Frequency, and Duration: Current Frequency: 2x/week Duration: 6 weeks (rec center closed x 1 week) Total Number of Visits Planned: 12 Planned Treatment Interventions: Therapeutic exercise (81743);Neuromuscular re-education (24603);Therapeutic activities (07828);Self-longterm management (06526);Aquatic PT (37303);Patient/Family /Caregiver Education PLAN FOR NEXT VISIT: begin aquatic therapy Patient demonstrates good understanding of plan of care and treatment. The above goals and plan of care were discussed and agreed upon by patient/family. SUBJECTIVE: Tristen Gomez is a 70 year old female seen today for Lower back pain. Patient reports that she was in a (more content not included)... Normal [facility] Glucose,Bedsideon 03-08-2021 Glucose [Mass/Vol] 126 mg/dL High 70-100 [employer] Comment on above: Result Comment: Test performed by glucose meter. Results may be 10%-15% lower than serum/plasma values. (CLIA ID [id number]) Performed By: #### B GLU #### [employer] [address] [place] [id number] POCT GlucoseOrdered By: Cherelle Faith on 03-08-2021 Glucose [Mass/Vol] 126 mg/dL High 70 - 100 mg/dL [employer] Work Phone: Comment on above: Test performed by gl ucose meter. Results may be 10%-15% lower than serum/plasma values. (CLIA ID [id number]) Interpretation and review of laboratory results Abnormal [employer] Work Phone: Test Performed by [employer], [address] [place] [phone] [employer] Work Phone: [employer] Work Phone: Surgical Pathologyon 021 Surgical Pathology [phone] [facility] PATHOLOGY AND LABORATORY MEDICINE [address] [place] [id number] FINAL SURGICAL PATHOLOGY REPORT NAME: TRISTEN GOMEZ : 1950 70 Y F BILLING NO.: [id number] LOCATION: 1XEO PROCEDURE 03/08/2021 DATE: SURGEON: CINTHIA FAITH MD RECEIVED 03/09/2021 DATE: ATTENDING: CINTHIA FAITH MD REPORT DATE: 03/10/2021 COPIES TO: DIAGNOSIS: CECAL POLYP, BIOPSY - TUBULAR ADENOMA SMT/SMT Signature> S AYSHA BATISTA M.D. CLINICAL INFORMATION: Screening SPECIMEN: COLON POLYP, BIOPSY GROSS DESCRIPTION: Cecum colon polyp Received in formalin is an irregular shaped segment of pink stanley polypoid soft tissue measuring 0.3 x 0.3 x 0.2 cm submitted in one cassette. BSC/DEVYN Disclaimer: The following statement applies to all immunohistochemistry, in situ hybridization, molecular studies, and immunofluorescence testing. The use of one or more reagents in the above tests is regulated as an analyte specific reagent (ASR). These tests were developed and their performance characteristics determined by the clinical laboratories of [facility]. They have not been cleared by the US Food and Drug Administration (FDA). The FDA has determined that such clearance or approval is not necessary. All the above immunostains were performed on paraffin embedded tissue. Appropriate positive and negative controls (where applicable) were run in parallel with the patient's specimen; these controls showed expected staining pattern, with acceptable intensity of staining. Immunohistochemical assays have not been validated on decalcified tissues. Results should be interpreted with caution given the raised possibility of false negativity on decalcified specimens. Professional Performing Location: [address] [address]. DEPARTMENT OF PATHOLOGY AND LABORATORY MEDICINE [place], [place] [address] [email or web address] Normal [facility] NM Gastric Emptying Studyon 02-03-2021 NM Gastric Emptying Study Patient Name: TRISTEN GOMEZ Nuclear Medicine ACCESSION EXAM DATE/TIME PROCEDURE ORDERING PROVIDER [id number] 02/03/2021 09:05 EDT NM Gastric Emptying MD ALLEN, CINTHIA Hankins Study CPT code 36235 Reason For Exam (NM Gastric Emptying Study) Upper abdominal pain, unspecified Report Indication: Upper abdominal pain. Following the oral administration of 1 mCi of tech 99m sulfur colloid in a standard meal, a gastric emptying scan was performed. 36 percent of the original activity remains within the stomach at 2 hrs (normal is 19 to 52 percent). Impression: 1. Normal gastric emptying of a solid meal. Report Dictated on Final Dictating Physician: DO MCKEON ANTHONY Signed Date and Time: 02/03/2021 9:22 am Signed by: DO MCKEON ANTHONY Transcribed Date and Time: 02/03/2021 9:23 Normal [facility] CTA CHEST W WO CONTRASTon Patient Name: TRISTEN GOMEZ ---CT--- Exam Date/Time 08/22/2020 10:35:44 EST Exam CTA Chest w/ + w/o Contrast Ordering Physician JODI PALMA Accession Number [id number] CPT4 Codes 31928 (), Q9967 (CT ISOVUE 370MG/ML&[id number] L&1) Reason For Exam hx of pulmonary embolus, dyspnea Report CTA chest with and without contrast History: chest pain and short of breath Comparison: 03/27/2018 Protocol: 1 mm images after IV contrast, 3D rendering performed by me on a separate workstation No evidence of aortic dissection or pulmonary embolism. Unchanged 5 mm nodule in the left posterior costophrenic angle. The lungs and pleural spaces are clear. No lymphadenopathy. IMPRESSION: Unchanged 5 mm nodule in the left posterior costophrenic angle. Report Dictated on --- Final --- Dictating Physician: MD JENKINS MALAY Signed Date and Time: 08/22/2020 11:03 am Signed by: MD JENKINS MALAY Transcribed Date and Time: 08/22/2020 11:04 [facility], [place] Niranjan, [facility] Incoming Radiology Results From [facility] - 08/22/2020 11:04 AM EST Patient Name: TRISTEN GOMEZ ---CT--- Exam Date/Time 08/22/2020 10:35:44 EST Exam CTA Chest w/ + w/o Contrast Ordering Physician JODI PALMA Accession Number [id number] CPT4 Codes 70106 (), Q9967 (CT ISOVUE 370MG/[id number] L&1) Reason For Exam hx of pulmonary embolus, dyspnea Report CTA chest with and without contrast History: chest pain and short of breath Comparison: 03/27/2018 Protocol: 1 mm images after IV contrast, 3D rendering performed by mi on a separate workstation No evidence of aortic dissection or pulmonary embolism. Unchanged 5 mm nodule in the left posterior costophrenic angle. The lungs and pleural spaces are clear. No lymphadenopathy. IMPRESSION: Unchanged 5 mm nodule in the left posterior costophrenic angle. Report Dictated on --- Final --- Dictating Physician: MD JENKINS MALAY Signed Date and Time: 08/22/2020 11:03 am Signed by: MD JENKINS MALAY Transcribed Date and Time: 08/22/2020 11:04 [facility], [place] CTA Chest w/ + w/o Contrasto n 08-22-2020 CTA Chest w/ + w/o Contrast Patient Name: TRISTEN GOMEZ CT Exam Date/Time 08/22/2020 10:35:44 EST Exam CTA Chest w/ + w/o Contrast Ordering Physician JODI PALMA Accession Number [id number] CPT4 Codes 22265 (), Q9967 (CT ISOVUE 370MG/[id number] [id number]) Reason For Exam hx of pulmonary embolus, dyspnea Report CTA chest with and without contrast History: chest pain and short of breath Comparison: 03/27/2018 Protocol: 1 mm images after IV contrast, 3D rendering performed by me on a separate workstation No evidence of aortic dissection or pulmonary embolism. Unchanged 5 mm nodule in the left posterior costophrenic angle. The lungs and pleural spaces are clear. No lymphadenopathy. IMPRESSION: Unchanged 5 mm nodule in the left posterior costophrenic angle. Report Dictated on Final Dictating Physician: MD JENKINS MALAY Signed Date and Time: 08/22/2020 11:03 am Signed by: MD JENKINS MALAY Transcribed Date and Time: 08/22/2020 11:04 Normal [facility] MRI ABDOMEN W WO CONTRASTon 08-22-2020 Patient Name: TRISTEN GOMEZ ---MRI--- Exam Date/Time 08/22/2020 12:05:31 EST Exam MRI Abdomen w/ + w/o Contrast Ordering Physician JODI PALMA Accession Number [id number] CPT4 Codes 26107 () Reason For Exam ATTN LIVER Report CLINICAL INFORMATION: Abdominal pain. Hepatic mass. Follow-up study. Multiecho and multiplanar images of the abdomen are provided prior to IV contrast. After 10 mL IV Gadavist contrast, images are repeated. The examination is compared to a previous ultrasound at 06/02/[address] dated 03/27/2018. There are no comparison MR studies. FINDINGS: There is evidence of diffuse fatty infiltration. A large lobular hepatic mass is noted in the posterior segment of the right lobe. This measures approximately 6.5 x 5.0 x 8 cm in the AP, lateral, and craniocaudad dimensions, respectively. This is homogeneously bright on T2-weighted imaging and low in signal on T1 imaging. Lobular enhancement is noted along the periphery of the lesion. This is seen to gradually fill on delayed imaging. Blooming artifact is noted about a metallic density in the anterior segment of the right lobe of the liver. No worrisome solid hepatic lesions are appreciated. There is no evidence of intra- or extrahepatic biliary dilation. The common bile duct spans 5 mm. The gallbladder is surgically absent. The spleen is normal in size. The pancreas is normal. The pancreatic duct is not significantly dilated. No pancreatic mass lesions are seen. There is no evidence of hydronephrosis. The bilateral adrenal glands are normal. No free fluid is seen within the abdomen. Postoperative changes are noted consistent with laminectomy and fusion. A small fluid collection is noted in the subcutaneous tissues about the spinous processes in the upper and mid lumbar spine. This measures approximately 2.5 cm in diameter and approximately 3 to 4 cm in the craniocaudad dimension. IMPRESSION: 1. Fatty liver. 2. Large lesion in the posterior segment of the right lobe of liver. This has the MR characteristics of a benign hemangioma. 3. No evidence of intra- or extrahepatic biliary dilatation status post cholecystectomy. 4. The patient is status post lumbar laminectomy and fusion. A small probable postoperative seroma is noted in the subcutaneous tissues about the spinous processes. Report Dictated on Workstation: Polimetrix --- Final --- Dictating Physician: MD MCNEIL JEFFREY Signed Date and Time: 08/22/2020 2:20 pm Signed by: MD MCNEIL JEFFREY Transcribed Date and Time: 08/22/2020 2:21 [facility], [facility] Incoming Radiology Results From [facility] - 08/22/2020 2:21 PM EST Patient Name: TRISTEN GOMEZ ---MRI--- Exam Date/Time 08/22/2020 12:05:31 EST Exam MRI Abdomen w/ + w/o Contrast Ordering Physician JODI PALMA Accession Number [id number] CPT4 Codes 12102 () Reason For Exam ATTN LIVER Report CLINICAL INFORMATION: Abdominal pain. Hepatic mass. Follow-up study. Multiecho and multiplanar images of the abdomen are provided prior to IV contrast. After 10 mL IV Gadavist contrast, images are repeated. The examination is compared to a previous ultrasound at 06/02/[address] dated 03/27/2018. There are no comparison MR studies. FINDINGS: There is evidence of diffuse fatty infiltration. A large lobular hepatic mass is noted in the posterior segment of the right lobe. This measures approximately 6.5 x 5.0 x 8 cm in the AP, lateral, and craniocaudad dimensions, respectively. This is homogeneously bright on T2-weighted imaging and low in signal on T1 imaging. Lobular enhancement is noted along the periphery of the lesion. This is seen to gradually fill on delayed imaging. Blooming artifact is noted about a metallic density in the anterior segment of the right lobe of the liver. No worrisome solid hepatic lesions are appreciated. There is no evidence of intra- or extrahepatic biliary dilation. The common bile duct spans 5 mm. The gallbladder is surgically absent. The spleen is normal in size. The pancreas is normal. The pancreatic duct is not significantly dilated. No pancreatic mass lesions are seen. There is no evidence of hydronephrosis. The bilateral adrenal glands are normal. No free fluid is seen within the abdomen. Postoperative changes are noted consistent with laminectomy and fusion. A small fluid collection is noted in the subcutaneous tissues about the spinous processes in the upper and mid lumbar spine. This measures approximately 2.5 cm in diameter and approximately 3 to 4 cm in the craniocaudad dimension. IMPRESSION: 1. Fatty liver. 2. Large lesion in the posterior segment of the right lobe of liver. This has the MR characteristics of a benign hemangioma. 3. No evidence of intra- or extrahepatic biliary dilatation status post cholecystectomy. 4. The patient is status post lumbar laminectomy and fusion. A small probable postoperative seroma is noted in the subcutaneous tissues about the spinous processes. Report Dictated on Workstation: [email or web address] --- Final --- Dictating Physician: MD MCNEIL JEFFREY Signed Date and Time: 08/22/2020 2:20 pm Signed by: MD MCNEIL JEFFREY Transcribed Date and Time: 08/22/2020 2:21 [place], [place] MRI Abdomen w/ + w/o Contras ton 08-22-2020 MRI Abdomen w/ + w/o Contrast Patient Name: TRISTEN GOMEZ MRI Exam Date/Time 08/22/2020 12:05:31 EST Exam MRI Abdomen w/ + w/o Contrast Ordering Physician JODI PALMA Accession Number [id number] CPT4 Codes 57878 () Reason For Exam ATTN LIVER Report CLINICAL INFORMATION: Abdominal pain. Hepatic mass. Follow-up study. Multiecho and multiplanar images of the abdomen are provided prior to IV contrast. After 10 mL IV Gadavist contrast, images are repeated. The examination is compared to a previous ultrasound at 06/02/[address] dated 03/27/2018. There are no comparison MR studies. FINDINGS: There is evidence of diffuse fatty infiltration. A large lobular hepatic mass is noted in the posterior segment of the right lobe. This measures approximately 6.5 x 5.0 x 8 cm in the AP, lateral, and craniocaudad dimensions, respectively. This is homogeneously bright on T2-weighted imaging and low in signal on T1 imaging. Lobular enhancement is noted along the periphery of the lesion. This is seen to gradually fill on delayed imaging. Blooming artifact is noted about a metallic density in the anterior segment of the right lobe of the liver. No worrisome solid hepatic lesions are appreciated. There is no evidence of intra- or extrahepatic biliary dilation. The common bile duct spans 5 mm. The gallbladder is surgically absent. The spleen is normal in size. The pancreas is normal. The pancreatic duct is not significantly dilated. No pancreatic mass lesions are seen. There is no evidence of hydronephrosis. The bilateral adrenal glands are normal. No free fluid is seen within the abdomen. Postoperative changes are noted consistent with laminectomy and fusion. A small fluid collection is noted in the subcutaneous tissues about the spinous processes in the upper and mid lumbar spine. This measures approximately 2.5 cm in diameter and approximately 3 to 4 cm in the craniocaudad dimension. IMPRESSION: 1. Fatty liver. 2. Large lesion in the posterior segment of the right lobe of liver. This has the MR characteristics of a benign hemangioma. 3. No evidence of intra- or extrahepatic biliary dilatation status post cholecystectomy. 4. The patient is status post lumbar laminectomy and fusion. A small probable postoperative seroma is noted in the subcutaneous tissues about the spinous processes. Report Dictated on Workstation: [id number] Final Dictating Physician: MD MCNEIL JEFFREY Signed Date and Time: 08/22/2020 2:20 pm Signed by: MD MCNEIL JEFFREY Transcribed Date and Time: 08/22/2020 2:21 Normal [facility] Hepatitis Panel, Acuteon HAV IgM IA Qn (S) NOT DETECTED Not-Detect ed NA [place], [place] Hep B Core Ab, IgM NOT DETECTED Not-Detec talon NA [place] Hepatitis B Surface Ag NOT DETECTED Not-D etected [place] Hepatitis C Ab NOT DETECTED Not-Detected [place], [place] Comment on above: Patients with DETECT ED Hepatitis C Ab results should have a new specimen submitted for supplemental testing with a Hepatitis C Quantitative RNA assay (viral load), if clinically indicated. [facility] [address] [address] [place], [place] US ABDOMEN LIMITEDon 020 Patient Name: TRISTEN GOMEZ ---Ultrasound--- Exam Date/Time 06/02/2020 11:31:05 EDT Exam US Abdomen Limited Ordering Physician MD STARKS RICHARD H Accession Number [id number] CPT4 Codes 68905 () Reason For Exam abdominal pain Report ULTRASOUND ABDOMEN LIMITED CLINICAL INDICATION: Abdominal pain, elevated liver function tests TECHNIQUE: Ultrasound of the right upper quadrant COMPARISON: 03/27/2018 FINDINGS: Liver: Generalized increased echogenicity likely corresponding to fatty infiltration. The liver is enlarged. Two echogenic foci are seen in the liver, one measuring 6.9 x 4.3 x 5.1 cm, and the smaller lesion measuring 1.7 x 1.5 x 1.5 cm. Gallbladder: Status post cholecystectomy. Bile ducts: No intrahepatic biliary dilatation. Dilated common bile duct Common bile duct: 11 mm Pancreas: The pancreas is obscured by bowel gas Right kidney: Normal size measuring 11.0 cm. Normal parenchymal echogenicity without solid mass or hydronephrosis. Ascites: None IMPRESSION: Large echogenic liver lesion corresponding to hemangioma seen on the prior CT. Another echogenic lesion is seen which could also represent a hemangioma but this was not seen on the CT from 2018. Consider follow-up ultrasound versus repeat CT. Biliary dilation likely due to prior cholecystectomy. Hepatomegaly and hepatic steatosis. Poorly visualized pancreas. Report Dictated on --- Final --- Dictating Physician: MD CERDA NICHOLAS Signed Date and Time: 06/02/2020 10:03 pm Signed by: MD CERDA NICHOLAS Transcribed Date and Time: 06/02/2020 10:04 [facility], [place] [facility] Incoming Radiology Results From [facility] - 06/02/2020 10:04 PM EDT Patient Name: TRISTEN GOMEZ ---Ultrasound--- Exam Date/Time 06/02/2020 11:31:05 EDT Exam US Abdomen Limited Ordering Physician MD STARKS RICHARD H Accession Number [id number] CPT4 Codes 90660 () Reason For Exam abdominal pain Report ULTRASOUND ABDOMEN LIMITED CLINICAL INDICATION: Abdominal pain, elevated liver function tests TECHNIQUE: Ultrasound of the right upper quadrant COMPARISON: 03/27/2018 FINDINGS: Liver: Generalized increased echogenicity likely corresponding to fatty infiltration. The liver is enlarged. Two echogenic foci are seen in the liver, one measuring 6.9 x 4.3 x 5.1 cm, and the smaller lesion measuring 1.7 x 1.5 x 1.5 cm. Gallbladder: Status post cholecystectomy. Bile ducts: No intrahepatic biliary dilatation. Dilated common bile duct Common bile duct: 11 mm Pancreas: The pancreas is obscured by bowel gas Right kidney: Normal size measuring 11.0 cm. Normal parenchymal echogenicity without solid mass or hydronephrosis. Ascites: None IMPRESSION: Large echogenic liver lesion corresponding to hemangioma seen on the prior CT. Another echogenic lesion is seen which could also represent a hemangioma but this was not seen on the CT from 2018. Consider follow-up ultrasound versus repeat CT. Biliary dilation likely due to prior cholecystectomy. Hepatomegaly and hepatic steatosis. Poorly visualized pancreas. Report Dictated on --- Final --- Dictating Physician: MD CERDA NICHOLAS Signed Date and Time: 06/02/2020 10:03 pm Signed by: MD CERDA NICHOLAS Transcribed Date and Time: 06/02/2020 10:04 [place], [place] Cult, Urineon 04-15-2020 Bacteria identified Cx Nom (U) PATIENT: TRISTEN GOMEZ LOCATION: [id number] BILL#: [id number] : 50 AGE: SEX: F ORDERED BY: TOMMY STARKS: URINE COLLECTED: 04/15/20 12:14ANTIBIOTICS AT [facility].: RECEIVED : 04/15/20 19:26SITE: Clean Catch/Voided R E S U L T S URINE CULTURE,BACTERIAL FINAL 04/16/20 11:48 NO SIGNIFICANT GROWTH. [facility] Work Phone: Comment on above: Ordering Provider: Mariel STARKS [id number] [facility] 04-15-2020 XR Pelvis AP and Hip - bilateral GE 2 Views Interpreted by: VERÓNICA WALKER 04/15/20 16:56MRN: [id number] Name: TRISTEN GOMEZ STUDY:HIPS, BIALT, MIN 2 VIEWS EACH, AP PELVIS INDICATION:pn. COMPARISON:July 02, 2017 ORDERING CLINICIAN:AARON EMANUEL FINDINGS:Mild osteoarthritis bilateral hips and sacroiliac joints. No fractureseen. No osseous lesion. IMPRESSION:Mild osteoarthritis bilateral hips and sacroiliac joints.Electronically signed by: VERÓNICA PAULINO 04/15/20 16:56 Normal [facility] Work Phone: XR Knee 1 or 2 views Interpreted by: МАРИЯ PAULINO04/15/20 16:56MRN: [id number] Name: TRISTEN GOMEZ STUDY:KNEE; 3 VIEWS; KNEE; 1 OR 2 VIEWS INDICATION:fuv. COMPARISON: July 02, 2017 [id number] ORDERING CLINICIAN:AARON EMANUEL FINDINGS:Interval right total knee arthroplasty without fracture,malalignment, or periprosthetic lucency. Moderate tricompartmental osteoarthritis left knee. Remote fibularfracture. IMPRESSION:Satisfactor y appearance status post right total knee arthroplasty. Moderate osteoarthritis left knee.Electronically signed by: VERÓNICA PAULINO 04/15/20 16:56 Normal [facility] Work Phone: Comment on above: ORDER REVISED TO A Surendra NEE 1OR 2 VIEWS BY RADIOLOGIST; Original Order Number: [id number] XR Knee 3 views Interpreted by: KATTY PAULINO04/15/20 16:56MRN: [id number] Name: TRISTEN GOMEZ STUDY:KNEE; 3 VIEWS; KNEE; 1 OR 2 VIEWS INDICATION:fuv. COMPARISON: July 02, 2017 [id number] ORDERING CLINICIAN:AARON EMANUEL FINDINGS:Interval right total knee arthroplasty without fracture,malalignment, or periprosthetic lucency. Moderate tricompartmental osteoarthritis left knee. Remote fibularfracture. IMPRESSION:Satisfactor y appearance status post right total knee arthroplasty. Moderate osteoarthritis left knee.Electronically signed by: VERÓNICA PAULINO 04/15/20 16:56 Normal [facility] Work Phone: Comment on above: ORDER REVISED TO Dwayne QUISPE, 3 VIEWS BY RADIOLOGIST; Original Order Number: [id number] Urinalysison 04-15-2020 Appearance (U) CLEAR CLEAR [facility] Work Phone: Comment on above: Ordering Provider: Mariel Macario18 Color (U) STRAW See Below [facility] Work Phone: Comment on above: Reference Range: STR AW,YELLOW Ordering Provider: Mariel STARKS [id number] Glucose Ql (U) Negative NEGATIVE [facility] Work Phone: Comment on above: Ordering Provider: Mariel STARKS [address]84[address] Ketones Ql (U) Negative NEGATIVE [facility] Work Phone: Comment on above: Ordering Provider: Mariel STARKS [id number] Leukocyte esterase Test strip Ql (U) Negative NEGATIVE [facility] Work Phone: Comment on above: Ordering Provider: Mariel STARKS [address]59[address] pH (U) 5.0 [pH] 5.0 - 8.0 [facility] Work Phone: Comment on above: Ordering Provider: Mariel STARKS 57422 Protein (U) [Mass/Vol] Negative NEGATIVE [facility] Work Phone: Comment on above: Ordering Provider: Mariel STARKS 25006 RBC (U) [#/Vol] Negative NEGATIVE [facility] Work Phone: Comment on above: Ordering Provider: Mariel ANTON Albert Specific gravity (U) [Rel density] 1.006 1 See Below [facility] Work Phone: Comment on above: Reference Range: 1.0 05 - 1.035 Ordering Provider: Mariel ANTON STARKS [id number] Urinalysis Negative NEGATIVE [facility] Work Phone: Comment on above: Ordering Provider: Mariel STARKS [id number] Urinalysis <2.0 0.0 - 1.9 [facility] Work Phone: Comment on above: Ordering Provider: Mariel ANTON Macario18 CULTURE URINEon 03-13-2020 CULTURE URINE 1 Organism Escherich ia coli >100,000 CFU/ml 1 Organism Antibiotic Result Intrp Ampicillin(RIGOBERTO) >= 32 R Cefazolin(RIGOBERTO) <= 4 S Ceftriaxone(RIGOBERTO) <= 1 S Cefepime(RIGOBERTO) <= 1 S Aztreonam(RIGOBERTO) <= 1 S Amoxicillin/Clavulanic Acid(RIGOBERTO) = 8 S Ampicillin/Sulbactam(M IC) = 16 I Pip/Tazobactam(RIGOBERTO) <= 4 S Meropenem(RIGOBERTO) <= 0.25 S Ciprofloxacin(RIGOBERTO) <= 0.25 S Trimeth/Sulfa(RIGOBERTO) <= 20 S Nitrofurantoin(RIGOBERTO) <= 16 S Gentamicin(RIGOBERTO) <= 1 S Amikacin(RIGOBERTO) <= 2 S Normal [facility] Comment on above: Performed By: #### H EMOG, BMP3, ETOH4, TROPN, CUA2, DRGA4, HA1C2 #### [address] [place], [place] #### C/UR #### [address] [place] [address] [place] Basic Metabolic Panelon 06-2 0-2019 Potassium [Moles/Vol] 4.1 mmol/L Normal 3.5-5.1 [facility] Comment on above: Performed By: #### H EMOG, BMP3, ETOH4, TROPN, CUA2, DRGA4, HA1C2 #### [address] [place], [place] #### C/UR #### [address] [place] [address] [place] Calcium [Mass/Vol] 8.3 mg/dL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 be 10%-15% lower than serum/plasma values. (CLIA ID [id number]) POCT Glucoseon 06-09-2019 Glucose [Mass/Vol] 229 mg/dL High 70 - 100 mg/dL [place] Comment on above: Test performed by gl ucose meter. Results may be 10%-15% lower than serum/plasma values. (CLIA ID [id number]) Interpretation and review of laboratory results Abnormal [place] Test Performed by [employer] [facility], [address], [place] [address] [place] [address] Glucose [Mass/Vol] 206 mg/dL High 70 - 100 mg/dL [place] Comment on above: Test performed by gl ucose meter. Results may be 10%-15% lower than serum/plasma values. (CLIA ID [id number]) Interpretation and review of laboratory results Abnormal [place] Test Performed by [place] [address] [place] [address] [place] Glucose [Mass/Vol] 127 mg/dL High 70 - 100 mg/dL [place] Comment on above: Test performed by ucose meter. Results may be 10%-15% lower than serum/plasma values. (CLIA ID [id number]) Interpretation and review of laboratory results Abnormal [place] Test Performed by [employer] [place] [address] [employer] [place] [address] [place], [place] Comprehensive Metabolic Pane iraida 06-02-2019 Albumin [Mass/Vol] 4.3 g/dL 3.5 - 5 g/dL [place], [place] ALP [Catalytic activity/Vol] 93 U/L 38 - 126 U/L [place] ALT [Catalytic activity/Vol] 31 U/L 13 - 69 U/L [place] Anion gap [Moles/Vol] 8 mmol/L [place], [place] AST [Catalytic activity/Vol] 41 U/L 15 - 46 U/L [place] Bilirubin Ql (U) 0.3 mg/dL 0.2 - 1.3 mg/dL [place] Calcium [Mass/Vol] 9.8 mg/dL 8.4 - 10. 4 mg/dL [place] Chloride [Moles/Vol] 106 mmol/L 98 - 10 7 mmol/L [place] CO2 [Moles/Vol] 28 mmol/L 22 - 30 mmol/L [place] Creatinine [Mass/Vol] 0.74 mg/dL 0.52 - 1.25 mg/dL [place] EGFR IF NonAfrican Indonesian >60.0 >60 mL/min [place], [place] Comment on above: Source- MDRD equatio n with creatinine calibration to IDMS(NKDEP) eGFR not recommended for drug dose adjustment GFR/1.73 sq M predicted among blacks MDRD (S/P/Bld) [Vol rate/Area] mL/min/{1.73_m2} >60 mL/min [place] Glucose [Mass/Vol] 118 mg/dL High 70 - 100 mg/dL [place] Interpretation and review of laboratory results Abnormal [place] Potassium [Moles/Vol] 4.3 mmol/L 3.5 - 5.1 mmol/L [place] Protein [Mass/Vol] 7.6 g/dL 6.3 - 8.2 g/dL [place] Sodium [Moles/Vol] 142 mmol/L 135 - 145 mmol/L [place] Urea nitrogen [Mass/Vol] 17 mg/dL 7 - 20 mg/dL [place] Test Performed by [facility], [facility] [place], [place] [address] [place] [address] Hemoglobin A1Con 06-02-2019 eAG 169 mg/dL [place], [place] HbA1c (Bld) [Mass fraction] 7.5 % High 4 - 5.7 % [place] Comment on above: --HgbA1C levels may not be accurate in patients who have renal disease, received recent blood transfusions, are anemic, or who have dyshemoglobinemia. Interpretation and review of laboratory results Abnormal [place] Test Performed by [facility], [facility] [place] [address] [place], [place] Hemoglobin and Hematocrit, B loodon 06-02-2019 Hematocrit (Bld) [Volume fraction] 38.7 % 35 - 47 % [place] Hemoglobin (Bld) [Mass/Vol] 13.2 g/dL 11.7 - 16 g/dL [place] Test Performed by [facility], [place] [address] [place], [place] TYPE AND SCREENon 06-02-2019 Sodium [Moles/Vol] Positive [place] Comment on above: Test Performed by [facility], [facility] [place] [address] Sodium [Moles/Vol] Negative [place] Comment on above: Test Performed by [facility], [address] [place] [address] Sodium [Moles/Vol] B [place] Test Performed by [facility] [employer] [facility], [place] [address] [place], [place] Hepatic Function Panelon Albumin BCP dye [Mass/Vol] 3.9 g/dL 3.4 - 5.0 [facility] Work Phone: ALP [Catalytic activity/Vol] 101 U/L 33 - 136 [facility] Work Phone: ALT With P-5'-P [Catalytic activity/Vol] 19 U/L 7 - 45 -[facility] Work Phone: Comment on above: Patients treated wit h Sulfasalazine may generate falsely decreased results for ALT. AST With P-5'-P [Catalytic activity/Vol] 20 U/L 9 - 39 [facility] Work Phone: Bilirubin [Mass/Vol] 0.3 mg/dL 0.0 - 1.2 [facility] Work Phone: Bilirubin.direct [Mass/Vol] 0.1 mg/dL 0.0 - 0.3 [facility] Work Phone: Protein [Mass/Vol] 7.1 g/dL 6.4 - 8.2 [facility] Work Phone: Urinalysison 02-04-2019 Appearance (U) CLEAR CLEAR [facility] Work Phone: Color (U) YELLOW See Below [facility] Work Phone: Comment on above: Reference Range: STR AW,YELLOW Glucose Ql (U) Negative NEGATIVE [facility] Work Phone: Ketones Ql (U) Negative NEGATIVE [facility] Work Phone: Leukocyte esterase Test strip Ql (U) TRACE Abnormal NEGATIVE [employer] Work Phone: pH (U) 5.0 [pH] 5.0 - 8.0 [facility] Work Phone: Protein (U) [Mass/Vol] Negative NEGATIVE [employer] Work Phone: RBC (U) [#/Vol] Negative NEGATIVE [facility] Work Phone: Specific gravity (U) [Rel density] 1.014 See Below [facility], [employer] Work Phone: Comment on above: Reference Range: 1.0 05 - 1.035 Urinalysis Negative NEGATIVE [facility] Work Phone: Urinalysis <2.0 0.0 - 1.9 [facility], [employer] Work Phone: Urinalysis, Microscopicon Bacteria LM.HPF (Urine sed) [#/Area] 4+ Abnormal [employer] Work Phone: Urinalysis, Microscopic 13 {/HPF} Abnormal 0-5 [facility] Work Phone: Urinalysis, Microscopic 3 {/HPF} 0-5 [facility] Work Phone: Urinalysis, Microscopic <1 [facility] Work Phone: Otheron 01-13-2019 Interpreted by: CARLOS PACE01/13/19 13:24MRN: [id number] Name: GOMEZJAETRISTEN STUDY:US ABD COMPLETE; 01/13/2019 8:33 am INDICATION:Abdominal distension (gaseous). COMPARISON:None. ORDERING CLINICIAN:LUIS STARKS TECHNIQUE:Multiple images of the abdomen were obtained. FINDINGS:LIVER:The echogenicity of the liver is within normal limits.There is a 6.6 x 6.4 x 5.5 cm hyperechoic mass within the right lobeof the liver, likely hemangioma.There is a 3.6 x 3.4 x 3.2 cm homogeneous hyperechoic mass in theright lobe of the liver, likely a hemangioma.The sagittal dimension of the right lobe of the liver is 16.7 cm. GALLBLADDER:Status post cholecystectomy. BILE DUCTS:There is no intrahepatic biliary dilatation.The common bile duct is nondilated measuring 7 mm. PANCREAS:The pancreas is unremarkable. KIDNEYS:RIGHT KIDNEY: The right kidney is normal in size measuring 11.5 cm in length The echogenicity of the cortex is within normal limits.There is a 1.6 cm simple lower pole right renal cyst.There is no intrarenal calculus or hydronephrosis. LEFT KIDNEY: The left kidney is normal in size measuring 11.1 cm in length The echogenicity of the cortex is within normal limits.There is no renal mass.There is no intrarenal calculus or hydronephrosis. SPLEEN:The spleen is normal in size measuring 9 cm.This spleen has a normal crescenteric shape.There is no focal splenic mass. PERITONEUM:There is no ascites. ABDOMINAL AORTA AND IVC:The proximal and mid abdominal aorta are non aneurysmal. Color imaging of the visualized proximal inferior vena cava showsflow. BLADDER: The bladder wall is smooth with no thickening or mass. IMPRESSION:1. There are 2 right hepatic hyperechoic masses, likely hemangioma.2. Status post cholecystectomy.3. 1.6 cm simple right renal cyst.Electronically signed by: MARKO PACE 01/13/19 13:24 Normal -[facility] Work Phone: Comment on above: Ordering Provider: Mariel STARKS [id number] Basic Metabolic Panelon 08- Anion gap 10 mmol/L Normal 10-20 [facility] Comment on above: Performed By: #### 1 [id number] ####[facility] [address] [place] [address] Bicarbonate (HCO3) 27 mmol/L Normal 21-32 [facility] Comment on above: Performed By: #### 1 [id number] ####[facility] [address] [place] [address] BUN/Creatinine Ratio 32 mg/mg High 5-25 [facility] Comment on above: Performed By: #### 1 [id number] ####[facility] [address] [place] [address] Calcium 9.4 mg/dL Normal 8.6-10.3 [facility] Comment on above: Performed By: #### 1 [id number] ####[facility] [address] [place] [address] Chloride 107 mmol/L Normal 98-107 [facility] Comment on above: Performed By: #### 1 [id number] ####[facility] [address] [place] [address] Creatinine 0.66 mg/dL Normal 0.50-1.05 [facility] Comment on above: Performed By: #### 1 [id number] ####[facility] [address] [place] [address] eGFR (MDRD) mL/min/{1.73_m2} Normal [facility] Comment on above: Result Comment: Inte rpretation for Chronic Kidney Disease:Stages 1&2 >60 Healthy or potential kidney damage.Mild decrease of GFR.Stage 3 30-59 Moderate decrease of GFR.Stage 4 15-29 Severe decrease of GFR.Stage 5 <15 Kidney failure or on dialysis. Performed By: #### 1 [id number] ####[facility] [address] [place] [address] Glucose mass conc 105 mg/dL High 70-100 [facility] Comment on above: Performed By: #### 1 [id number] ####[facility] [address] [place] [address] Potassium molar conc 4.4 mmol/L Normal 3.5-5.1 [facility] Comment on above: Performed By: #### 1 [id number] ####[facility] [address] [place] [address] Sodium 140 mmol/L Normal 136-145 [facility] Comment on above: Performed By: #### 1 [id number] ####[facility] [address] [place] [address] Urea nitrogen 21 mg/dL Normal 6-23 [facility] are Comment on above: Performed By: #### 1 [id number] ####[facility] [address] [place] [address] C-Reactive Proteinon 05-06-2 017 C reactive protein (CRP) mg/L Normal 0.0-1.0 [facility] Comment on above: Performed By: #### 1 [id number] ####[facility] [address] [place] [address] CBC With Differentialon 04-23 Basophils Auto #/vol (Bld) 0.02 10*3/uL Normal 0.01-0.07 [facility] Comment on above: Performed By: #### 2 [id number] ####[address] [address] Basophils/100 WBC Auto (Bld) 0.3 % Normal 0.1-1.2 [facility] Comment on above: Performed By: #### 2 [id number] ####[place] [address] [place] [address] Eosinophils 0.11 10*3/uL Normal 0.04-0.50 [facility] are Comment on above: Performed By: #### 2 498739 ####[address] [address] Eosinophils/100 leukocytes 1.7 % Normal 0.0-8.1 [facility] Comment on above: Performed By: #### 2 [id number] ####[facility] [address] [place] [address] Erythrocyte distribution width Auto Ratio (RBC) 12.2 % Normal 12.0-15.4 [facility] Comment on above: Performed By: #### 2 823203 ####[facility] [address] [place] [address] Erythrocytes (RBC) 0.00 10*3/uL Normal [facility] Comment on above: Performed By: #### 2 350651 ####[facility] [address] [place] [address] Erythrocytes (RBC) 3.70 10*6/uL Low 3.85-5.10 [facility] Comment on above: Performed By: #### 2 508463 ####[facility] [address] [place] [address] Erythrocytes (RBC) 0.0 /100{WBCs} Normal [facility] Comment on above: Performed By: #### 2 028876 ####[facility] [address] [place] [address] Hematocrit (HCT) 35.9 % Low 36.5-46.6 [facility] Comment on above: Performed By: #### 2 430057 ####[place] [address] [place] [address] Hemoglobin mass conc (Bld) 12.0 g/dL Normal 11.8-15.3 [facility] Comment on above: Performed By: #### 2 555857 ####[address] [address] Imm Grans Absolute 0.01 10*3/uL Normal 0.00-0.21 [facility] Comment on above: Performed By: #### 2 251627 ####[facility] [address] [place] [address] Immature granulocytes #/vol (Bld) 0.2 % Normal [facility] Comment on above: Performed By: #### 2 713088 ####[facility] [address] [place] [address] Lymphocytes 2.48 10*3/uL Normal 0.40-2.84 [facility] Comment on above: Performed By: #### 2 445015 ####[facility] [address] [place] [address] Lymphocytes/100 leukocytes 37.4 % Normal 15.7-50.5 [facility] Comment on above: Performed By: #### 2 [id number] ####[facility] [address] [place] [address] MCH 32.4 pg Normal 27.5-33.0 [facility] Comment on above: Performed By: #### 2 030312 ####[facility] [address] [place] [address] MCHC mass conc (RBC) 33.4 g/dL Normal 30.1-35.0 [facility] Comment on above: Performed By: #### 2 216671 ####[facility] [address] [facility] [place] [address] MCV 97.0 fL Normal 85.4-100.0 [facility] Comment on above: Performed By: #### 2 194946 ####[facility] [address] [place] [address] Monocytes 0.56 10*3/uL Normal 0.25-0.83 [facility] re Comment on above: Performed By: #### 2 381948 ####[facility] [address] [place] [address] Monocytes/100 leukocytes 8.4 % Normal 4.8-12.7 [facility] Comment on above: Performed By: #### 2 100936 ####[facility] [address] [place] [address] Neutrophils 3.45 10*3/uL Normal 1.95-6.85 [facility] are Comment on above: Performed By: #### 2 638899 ####[facility] [address] [place] [address] Neutrophils/100 leukocytes 52.0 % Normal 36.8-73.2 [facility] Comment on above: Performed By: #### 2 666104 ####[facility] [address] [place] [address] Platelet mean volume (PMV) 8.5 fL Low 9.9-12.1 [facility] Comment on above: Performed By: #### 2 552826 ####[facility] [address] [place] [address] Platelets 246 10*3/uL Normal 155-404 [facility] Comment on above: Performed By: #### 2 012550 ####[facility] [address] [place] [address] RDW SD 43.6 fL Normal 39.3-48.6 [facility] Comment on above: Performed By: #### 2 513331 ####[facility] [address] [place] [address] WBC (Leukocytes) 6.6 10*3/uL Normal 4.4-9.9 [facility] Comment on above: Performed By: #### 2 372871 ####[facility] [address] [place] [address] CHEST 2 VIEWS PA AND LATon 0 05-06-2017 CHEST 2 VIEWS PA AND LAT DATE OF EXAM: May 06 2017 2:12AMCLINICAL HISTORY/ Name: SIMIN GOMEZ:CHEST 2 VIEWS PA AND LAT; 05/06/2017 2:12 amINDICATION:Right arm and right leg hurts.COMPARISON:None. LILA CLINICIAN:AYAN LOWERY:Fronta l and lateral views of the chest were obtainedFINDINGS:The heart is not enlarged. There is no vascular congestion.No focal consolidation, pleural effusion or pneumothorax.Multileve l degenerative changes in the spine.CONCLUSION: IMPRESSION:No acute radiographic finding in the chest. Normal [facility] CKMBon 05-06-2017 CKMB 4.3 ng/mL Normal [facility] Comment on above: Result Comment: CKMB <7 AND CKMBI <4% :NEGATIVECKMB <7 AND CKMBI >4% :EQUIVOCALCKMB >=7 AND CKMBI <4% :EQUIVOCALCKMB >=7 AND CKMBI >4% :POSITIVE Performed By: #### 1 [id number] ####[facility] [address] [place] [address] CKMB Indexon 05-06-2017 CKMB 4.0 % Normal [facility] Comment on above: Performed By: #### C KMBI ####[facility] [address] [place] [address] Creatine Kinaseon 05-06-2017 Creatine kinase (CK) 107 U/L Normal 0-215 [facility] Comment on above: Performed By: #### 1 [id number] ####[facility] [address] [place] [address] D Dimeron 05-06-2017 D Dimer 1.00 ug/mL FEU Critically high 0.00-0.48 [facility] Comment on above: Result Comment: The D-Dimer test by Immuno-Turbidimetric method is usedfor the quantitative determination of D-Dimer in plasma.Results should be interpreted as follows:0 - 0.48 ug FEU/mL Negative for DVT and PE>= 0.49 ug FEU/mL InconclusiveThis assay can be used to aid in the diagnosis of deepvenous thrombosis (DVT) and pulmonary embolism (PE)disease. This assay has a 95% negative predictive value.A Negative reading makes the diagnosis of DVT or PEunlikely. Performed By: #### D DIMR ####[facility] [address] [place] [address] ESR, Westergrenon 05-06-2017 ESR, Westergren 16 mm/h Normal 0-20 [facility] Comment on above: Performed By: #### 2 [id number] ####[facility] [address] [place] [address] Troponinon 05-06-2017 Troponin I.cardiac mass conc ng/mL Normal 0.000-0.040 [facility] Comment on above: Result Comment: <0.0 4 : Negative0.04 - 0.50 : Possible Cardiac Damage>0.50 : Consistent with Cardiac Damage Performed By: #### 1 [id number] ####[facility] [address] [place] [address] Urinalysis with Reflex Cultu reon 05-06-2017 Ascorbic Acid Negative Normal Negative [facility] are Comment on above: Performed By: #### D DIMR ####[facility] [address] [place] [address] Automated Urine Microscopy Not indicated Normal [facility] Comment on above: Performed By: #### D DIMR ####[facility] [address] [place] [address] Bilirubin Ql (U) Negative Normal Negative [facility] Comment on above: Performed By: #### D DIMR ####[facility] [address] [place] [address] Blood Negative Normal Negative [facility] Comment on above: Performed By: #### D DIMR ####[facility] [address] [place] [address] Glucose mass conc Negative Normal Negative [facility] Comment on above: Performed By: #### D DIMR ####[facility] [address] [place] [address] Protein Negative Normal Negative [facility] Comment on above: Performed By: #### D DIMR ####[facility] [address] [place] [address] Urine, appearance Clear Normal Clear [facility] Comment on above: Performed By: #### D DIMR ####[facility] [address] [place] [address] Urine, color Colorless Normal [facility] Comment on above: Performed By: #### D DIMR ####[facility] [address] [place] [address] Urine, ketones presence Negative Normal Negative [facility] Comment on above: Performed By: #### D DIMR ####[facility] [address] [place] [address] Urine, nitrite presence Negative Normal Negative [facility] Comment on above: Performed By: #### D DIMR ####[facility] [address] [place] [address] Urine, pH 7.0 [pH] Normal 5.0-9.0 [facility] Comment on above: Performed By: #### D DIMR ####[facility] [address] [place] [address] Urine, specific gravity 1.003 Normal 1.003-1.035 [facility] Comment on above: Performed By: #### D DIMR ####[facility] [address] [place] [address] Urine, urobilinogen <2.0 Normal Negative [facility] Comment on above: Performed By: #### D DIMR ####[facility] [address] [place] [address] WBC (Leukocytes) Negative Normal Negative [facility] [facility] Comment on above: Performed By: #### D DIMR ####[facility] [address] [place] [address] VENOUS DUPLEX LOWER EX RTon 05-06-2017 VENOUS DUPLEX LOWER EX RT DATE OF EXAM: May 06 2017 4:09AMCLINICAL HISTORY/ Name: EBONI GOMEZY:VENOUS DUPLEX LOWER EX RT; 05/06/2017 4:09 amINDICATION:for DVT. Right leg pain, elevated D-dimerCOMPARISON:None . LILA CLINICIAN:AYAN LOWERY:Graysc jaden, color and spectral Doppler sonographic images of the right lower extremity deep venous system. The left common femoral vein was imaged for comparison.FINDINGS:Th ere is normal compressibility of the right common femoral vein, saphenous femoral junction, femoral vein and popliteal vein. The posterior tibial and peroneal veins are suboptimally visualized. There is normal spontaneous and phasic variation throughout the leg by spectral doppler.The left common femoral vein is patent.OTHER FINDINGS: None.CONCLUSION: IMPRESSION:Poor visualization of the calf veins. No sonographic evidence of acute DVT in the visualized vessels of the right lower extremity. Normal formerly [facility] VENOUS DUPLEX UPPER EX RTon 05-06-2017 VENOUS DUPLEX UPPER EX RT DATE OF EXAM: May 06 2017 4:09AMCLINICAL HISTORY/ Name: SIMIN GOMEZ:VENOUS DUPLEX UPPER EX RT; 05/06/2017 4:09 amINDICATION:for DVT. Right arm painCOMPARISON:None.AC CESSION NUMBER(S):[id number] LILA CLINICIAN:AYAN LOWERY:Graysc jaden, color and spectral Doppler sonographic imaging of the right upper extremity deep venous system.FINDINGS:Segmen mei visualization of the right internal jugular vein, subclavian vein, axillary vein, basilic vein, brachial vein and cephalic vein demonstrate normal mitchell scale appearance, compressibility, color flow and venous waveforms. The radial and ulnar veins are suboptimally visualized, and evaluation is limited.CONCLUSION: IMPRESSION:No sonographic evidence of DVT in the visualized vessels of the right upper extremity. Normal [facility] Healthcare Vital Signs Date Time Vital Sign Value Performing Clinician Sriram guerra 04-05-2025 10:16-0400 Body height 167.[address] Tess Ontiveros DO Work Phone: [facility] 04-05-2025 10:16-0400 Body mass index (BMI) [Ratio] 39.6 kg/m2 Dr. Tess Ontiveros DO Work Phone: [facility] 04-05-2025 10:16-0400 Body temperature 98 [degF] Dr. Tess Ontiveros DO Work Phone: [facility] 04-05-2025 10:16-0400 Body weight 111.[address] Tess Ontiveros DO Work Phone: [facility] 04-05-2025 10:16-0400 Diastolic blood pressure 84 mm[Hg] Dr. Tess Ontiveros DO Work Phone: [facility] 04-05-2025 10:16-0400 Heart rate 91 /min Dr. Tess Ontiveros DO Work Phone: [facility] 04-05-2025 10:16-0400 Respiratory rate 16 /min Dr. Tess Ontiveros DO Work Phone: [facility] 04-05-2025 10:16-0400 SaO2% (BldA) [Mass fraction] 98 % Dr. Tess Ontiveros DO Work Phone: [facility] 04-05-2025 10:16-0400 Systolic blood pressure 137 mm[Hg] Dr. Tess Ontiveros DO Work Phone: [facility] 03-30-2025 10:17-0400 Body height 165.[address] 03-30-2025 10:17-0400 Body mass index (BMI) [Ratio] 41.09 kg/m2 A[facility] 1 [facility] 03-30-2025 10:17-0400 Body weight 112 kg [facility] 1 [facility] 03-24-2025 09:090400 Body weight 112.[address] Tess Ontiveros DO Work Phone: [facility] 02-26-2025 09:22-0400 Body height 167.[address] Aries Hill MD Work Phone: [facility] 02-26-2025 09:22-0400 Body weight 114.[address] Aries Hill MD Work Phone: [facility] 02-24-2025 10:16-0400 Body height 165.1 cm Tess Wardl DO Work Phone: [facility] 02-24-2025 10:16-0400 Body mass index (BMI) [Ratio] 41.07 kg/m2 Tess Wardl DO Work Phone: [facility] 02-24-2025 10:16-0400 Body temperature 97.7 [degF] Tess Wardl DO Work Phone: [facility] 02-24-2025 10:16-0400 Body weight 111.95 kg Tess Ceehael DO Work Phone: [facility] 02-24-2025 10:16-0400 Diastolic blood pressure 68 mm[Hg] Tess Wardl DO Work Phone: [facility] 02-24-2025 10:16-0400 Heart rate 81 /min Tess Ceehael DO Work Phone: [facility] 02-24-2025 10:16-0400 Respiratory rate 12 /min Tess Ceehael DO Work Phone: [facility] 02-24-2025 10:16-0400 SaO2% (BldA) [Mass fraction] 94 % Tess Ceehael DO Work Phone: [facility] 02-24-2025 10:16-0400 Systolic blood pressure 109 mm[Hg] Tess Ontiveros DO Work Phone: [facility] 02-17-2025 13:24-0400 Body height 167.6 cm Darnell Tan MD Work Phone: [facility] 02-17-2025 13:24-0400 Body mass index (BMI) [Ratio] 40.19 kg/m2 Darnell Tan MD Work Phone: [facility] 02-17-2025 13:24-0400 Body weight 112.95 kg Darnell Tan MD Work Phone: [facility] 02-17-2025 13:24-0400 Diastolic blood pressure 79 mm[Hg] Darnell Tan MD Work Phone: [facility] 02-17-2025 13:24-0400 Heart rate 91 /min Darnell Tan MD Work Phone: [facility] 02-17-2025 13:24-0400 Systolic blood pressure 139 mm[Hg] Darnell Tan MD Work Phone: [facility] 02-08-2025 11:20-0400 Body height 167.[address] Aries Hill MD Work Phone: [facility] 02-08-2025 11:20-0400 Body weight 113.[address] Aries Hill MD Work Phone: [facility] 02-03-2025 08:38-0400 Body height 167.6 cm Cat Mathews MD Work Phone: [facility] 02-03-2025 08:38-0400 Body mass index (BMI) [Ratio] 40.67 kg/m2 Cat Mathews MD Work Phone: [facility] 02-03-2025 08:38-0400 Body weight 114.31 kg Cat Mathews MD Work Phone: [facility] 02-03-2025 08:38-0400 Diastolic blood pressure 68 mm[Hg] Cat Mathews MD Work Phone: [facility] 02-03-2025 08:38-0400 Heart rate 83 /min Cat Mathews MD Work Phone: [facility] 02-03-2025 08:38-0400 Systolic blood pressure 124 mm[Hg] Cat Mathews MD Work Phone: [facility] 01-19-2025 11:46-0400 Body height 167.6 cm Jodi Awan MD PhD Work Phone: [facility] 01-19-2025 11:46-0400 Body mass index (BMI) [Ratio] 39.54 kg/m2 Jodi Awan MD PhD Work Phone: [facility] 01-19-2025 11:46-0400 Body weight 111.13 kg Jodi Awan MD PhD Work Phone: [facility] 01-19-2025 11:46-0400 Diastolic blood pressure 82 mm[Hg] Jodi Awan MD PhD Work Phone: [facility] 01-19-2025 11:46-0400 Heart rate 89 /min Jodi Awan MD PhD Work Phone: [facility] 01-19-2025 11:46-0400 SaO2% (BldA) [Mass fraction] 96 % Jodi Awan MD PhD Work Phone: [facility] 01-19-2025 11:46-0400 Systolic blood pressure 147 mm[Hg] Jodi Awan MD PhD Work Phone: [facility] 01-05-2025 09:57-0400 Body height 167.6 cm Ji Galo MD Work Phone: [facility] 01-05-2025 09:57-0400 Body mass index (BMI) [Ratio] 39.25 kg/m2 Ji Galo MD Work Phone: [facility] 01-05-2025 09:57-0400 Body weight 110.31 kg Ji Galo MD Work Phone: [facility] 01-05-2025 09:57-0400 Diastolic blood pressure 85 mm[Hg] Ji Galo MD Work Phone: [facility] 01-05-2025 09:57-0400 Heart rate 83 /min Ji Galo MD Work Phone: [facility] 01-05-2025 09:57-0400 Systolic blood pressure 153 mm[Hg] Ji Galo MD Work Phone: [facility] 01-01-2025 11:35-0400 Body weight 113.[address] Aries Hill MD Work Phone: [facility] 12-23-2024 15:05-0400 Body height 167.[address] Aries Hill MD Work Phone: [facility] 12-23-2024 15:05-0400 Body temperature 97.2 [degF] Dr. Aries Hill MD Work Phone: [facility] 12-23-2024 15:05-0400 Diastolic blood pressure 79 mm[Hg] Dr. Aries Hill MD Work Phone: [facility] 12-23-2024 15:05-0400 Heart rate 85 /min Dr. Aries Hill MD Work Phone: [facility] 12-23-2024 15:05-0400 Respiratory rate 24 /min Dr. Aries Hill MD Work Phone: [facility] 12-23-2024 15:05-0400 SaO2% (BldA) [Mass fraction] 100 % Dr. Aries Hill MD Work Phone: [facility] 12-23-2024 15:05-0400 Systolic blood pressure 172 mm[Hg] Dr. Aries Hill MD Work Phone: [facility] 12-17-2024 08:32-0400 Body mass index (BMI) [Ratio] 40.03 kg/m2 Radha Shmigelskyi [employer]IC[employer] Work Phone: [facility] 12-17-2024 08:32-0400 Body weight 112.49 kg Radha Shmigelskyi [employer]ICER Work Phone: 7(595)[phone] [place] [address] 12-17-2024 08:32-0400 Diastolic blood pressure 84 mm[Hg] Radha Shmigelskyi [employer]PER[employer] OFFICER Work Phone: 7(759)[phone] [place] [address] 12-17-2024 08:32-0400 Heart rate 79 /min Radha Shmigelskyi [employer] SEC[employer] OFFICER Work Phone: 4(385)[phone] [place] [address] 12-17-2024 08:32-0400 Systolic blood pressure 122 mm[Hg] Radha Shmigelskyi [employer] OPER[employer] SEC[employer] OFFICER Work Phone: [facility] 12-04-2024 09:00-0400 Body mass index (BMI) [Ratio] 40.3 kg/m2 Dr. Aries Hill MD Work Phone: [facility] 12-04-2024 08:53-0400 Body weight 113.[address] Aries Hill MD Work Phone: [facility] 12-04-2024 08:25-0400 Diastolic blood pressure 68 mm[Hg] Dr. Aries Hill MD Work Phone: [facility] 12-04-2024 08:25-0400 Systolic blood pressure 122 mm[Hg] Dr. Aries Hill MD Work Phone: [facility] 12-04-2024 08:20-0400 Heart rate 84 /min Dr. Aries Hill MD Work Phone: [facility] 12-04-2024 08:20-0400 SaO2% (BldA) [Mass fraction] 98 % Dr. Aries Hill MD Work Phone: [facility] 12-04-2024 08:13-0400 Body height 167.[address] Aries Hill MD Work Phone: [facility] 12-03-2024 09:57-0400 Body mass index (BMI) [Ratio] 40.48 kg/m2 Tess Rama DO Work Phone: [facility] 12-03-2024 09:57-0400 Body temperature 96.69 [degF] Tess Rama DO Work Phone: [facility] 12-03-2024 09:57-0400 Body weight 113.76 kg Tess Kenesaw DO Work Phone: [facility] 12-03-2024 09:57-0400 Diastolic blood pressure 72 mm[Hg] Tess Rama DO Work Phone: [facility] 12-03-2024 09:57-0400 Heart rate 72 /min Tess Kenesaw DO Work Phone: [facility] 12-03-2024 09:57-0400 Respiratory rate 14 /min Tess Kenesaw DO Work Phone: [facility] 12-03-2024 09:57-0400 SaO2% (BldA) [Mass fraction] 96 % Tess Kenesaw DO Work Phone: [facility] 12-03-2024 09:57-0400 Systolic blood pressure 130 mm[Hg] Tess Rama DO Work Phone: [facility] 11-28-2024 12:38-0500 Body temperature 97.9 [degF] Dr. Aries Hill MD Work Phone: [facility] 11-28-2024 12:38-0500 Diastolic blood pressure 73 mm[Hg] Dr. Aries Hill MD Work Phone: [facility] 11-28-2024 12:38-0500 Heart rate 84 /min Dr. Aries Hill MD Work Phone: [facility] 11-28-2024 12:38-0500 Respiratory rate 16 /min Dr. Aries Hill MD Work Phone: [facility] 11-28-2024 12:38-0500 SaO2% (BldA) [Mass fraction] 98 % Dr. Aries Hill MD Work Phone: [facility] 11-28-2024 12:38-0500 Systolic blood pressure 152 mm[Hg] Dr. Aries Hill MD Work Phone: [facility] 11-27-2024 14:10-0500 Body height 167.[address] Aries Hill MD Work Phone: [facility] 11-27-2024 14:10-0500 Body weight 115.[address] Aries Hill MD Work Phone: [facility] 11-27-2024 05:26-0500 Body mass index (BMI) [Ratio] 41.1 kg/m2 Dr. Aries Hill MD Work Phone: [facility] 11-26-2024 13:03-0500 Diastolic blood pressure 70 mm[Hg] Dr. Aries Hill MD Work Phone: [facility] 11-26-2024 13:03-0500 Systolic blood pressure 160 mm[Hg] Dr. Aries Hill MD Work Phone: [facility] 11-26-2024 12:34-0500 Body height 167.[address] Aries Hill MD Work Phone: [facility] 11-26-2024 12:34-0500 Body mass index (BMI) [Ratio] 40.8 kg/m2 Dr. Aries Hill MD Work Phone: [facility] 11-26-2024 12:34-0500 Body temperature 98 [degF] Dr. Aries Hill MD Work Phone: [facility] 11-26-2024 12:34-0500 Body weight 114.[address] Aries Hill MD Work Phone: [facility] 11-26-2024 12:34-0500 Heart rate 60 /min Dr. Aries Hill MD Work Phone: [facility] 11-26-2024 12:34-0500 Respiratory rate 20 /min Dr. Aries Hill MD Work Phone: [facility] 11-26-2024 12:34-0500 SaO2% (BldA) [Mass fraction] 99 % Dr. Aries Hill MD Work Phone: [facility] 11-16-2024 08:40-0500 Body height 167.6 cm Cat Mathews MD Work Phone: [facility] 11-16-2024 08:40-0500 Body mass index (BMI) [Ratio] 40.54 kg/m2 Cat Mathews MD Work Phone: [facility] 11-16-2024 08:40-0500 Body weight 113.94 kg Cat Mathews MD Work Phone: [facility] 11-16-2024 08:40-0500 Diastolic blood pressure 70 mm[Hg] Cat Mathews MD Work Phone: [facility] 11-16-2024 08:40-0500 Heart rate 83 /min Cat Mathews MD Work Phone: [facility] 11-16-2024 08:40-0500 Systolic blood pressure 142 mm[Hg] Cat Mathews MD Work Phone: [facility] 10-30-2024 08:20-0500 Body height 167.6 cm Silas Stern MD Work Phone: [facility] 10-30-2024 08:20-0500 Body mass index (BMI) [Ratio] 40.67 kg/m2 Silas Stern MD Work Phone: [facility] 10-30-2024 08:20-0500 Body temperature 97.2 [degF] Silas Stern MD Work Phone: [facility] 10-30-2024 08:20-0500 Body weight 114.31 kg Silas Stern MD Work Phone: [facility] 10-30-2024 08:20-0500 Diastolic blood pressure 69 mm[Hg] Silas Stern MD Work Phone: [facility] 10-30-2024 08:20-0500 Heart rate 75 /min Silas Stern MD Work Phone: [facility] 10-30-2024 08:20-0500 Respiratory rate 16 /min Silas Stern MD Work Phone: [facility] 10-30-2024 08:20-0500 SaO2% (BldA) [Mass fraction] 97 % Silas Stern MD Work Phone: [facility] 10-30-2024 08:20-0500 Systolic blood pressure 152 mm[Hg] Silas Stern MD Work Phone: [facility] 10-28-2024 13:27-0500 Diastolic blood pressure 108 mm[Hg] Ji Galo MD Work Phone: [facility] 10-28-2024 13:27-0500 Heart rate 87 /min Ji Galo MD Work Phone: [facility] 10-28-2024 13:27-0500 Respiratory rate 16 /min Ji Galo MD Work Phone: [facility] 10-28-2024 13:27-0500 SaO2% (BldA) [Mass fraction] 98 % Ji Galo MD Work Phone: [facility] 10-28-2024 13:27-0500 Systolic blood pressure 134 mm[Hg] Ji Galo MD Work Phone: [facility] 10-28-2024 12:20-0500 Body temperature 97.9 [degF] Ji Galo MD Work Phone: [facility] 10-28-2024 10:52-0500 Body height 167.6 cm Ji Galo MD Work Phone: [facility] 10-28-2024 10:52-0500 Body mass index (BMI) [Ratio] 40.35 kg/m2 Ji Galo MD Work Phone: [facility] 10-28-2024 10:52-0500 Body weight 113.4 kg Ji Galo MD Work Phone: [facility] 10-20-2024 09:33-0500 Body height 167.6 cm Ji Galo MD Work Phone: [facility] 10-20-2024 09:33-0500 Body mass index (BMI) [Ratio] 40.51 kg/m2 Ji Galo MD Work Phone: [facility] 10-20-2024 09:33-0500 Body weight 113.85 kg Ji Galo MD Work Phone: [facility] 10-20-2024 09:33-0500 Diastolic blood pressure 82 mm[Hg] Ji Galo MD Work Phone: [facility] 10-20-2024 09:33-0500 Heart rate 77 /min Ji Galo MD Work Phone: [facility] 10-20-2024 09:33-0500 Systolic blood pressure 146 mm[Hg] Ji Galo MD Work Phone: [facility] 08-31-2024 09:07-0500 Body mass index (BMI) [Ratio] 39.58 kg/m2 Tess Kenesaw DO Work Phone: [facility] 08-31-2024 09:07-0500 Body temperature 97.9 [degF] Tess Kenesaw DO Work Phone: [facility] 08-31-2024 09:07-0500 Body weight 111.22 kg Tess Kenesaw DO Work Phone: [facility] 08-31-2024 09:07-0500 Diastolic blood pressure 66 mm[Hg] Tess Rama DO Work Phone: [facility] 08-31-2024 09:07-0500 Heart rate 76 /min Tess Kenesaw DO Work Phone: [facility] 08-31-2024 09:07-0500 Respiratory rate 16 /min Tess Kenesaw DO Work Phone: [facility] 08-31-2024 09:07-0500 SaO2% (BldA) [Mass fraction] 96 % Tess Kenesaw DO Work Phone: [facility] 08-31-2024 09:07-0500 Systolic blood pressure 106 mm[Hg] Tess Rama DO Work Phone: [facility] 08-17-2024 10:09-0500 Body height 167.6 cm Cat Mathews MD Work Phone: [facility] 08-17-2024 10:09-0500 Body mass index (BMI) [Ratio] 39.8 kg/m2 Cat Mathews MD Work Phone: [facility] 08-17-2024 10:09-0500 Body weight 111.86 kg Cat Mathews MD Work Phone: [facility] 08-17-2024 10:09-0500 Diastolic blood pressure 74 mm[Hg] Cat Mathews MD Work Phone: [facility] 08-17-2024 10:09-0500 Heart rate 81 /min Cat Mathesw MD Work Phone: [facility] 08-17-2024 10:09-0500 Systolic blood pressure 126 mm[Hg] Cat Mathews MD Work Phone: [facility] 08-12-2024 13:05-0500 Body height 167.6 cm Zena Pablo MD Work Phone: [facility] 08-12-2024 13:05-0500 Body mass index (BMI) [Ratio] 38.74 kg/m2 Zena Pablo MD Work Phone: [facility] 08-12-2024 13:05-0500 Body weight 108.86 kg Zena Pablo MD Work Phone: [facility] 07-21-2024 14:50-0400 Body height 167.6 cm Jodi Awan MD PhD Work Phone: [facility] 07-21-2024 14:50-0400 Body mass index (BMI) [Ratio] 39.06 kg/m2 Jodi Awan MD PhD Work Phone: [facility] 07-21-2024 14:50-0400 Body weight 109.77 kg Jodi Awan MD PhD Work Phone: [facility] 07-21-2024 14:50-0400 Diastolic blood pressure 77 mm[Hg] Jodi Awan MD PhD Work Phone: [facility] 07-21-2024 14:50-0400 Heart rate 80 /min Jodi Awan MD PhD Work Phone: [facility] 07-21-2024 14:50-0400 Systolic blood pressure 120 mm[Hg] Jodi Awan MD PhD Work Phone: [facility] 07-15-2024 15:17-0400 Body mass index (BMI) [Ratio] 40.44 kg/m2 Darnell Tan MD Work Phone: [facility] [employer] 07-15-2024 15:17-0400 Body weight 110.22 kg Darnell Tan MD Work Phone: [facility] [employer] 07-15-2024 15:17-0400 Diastolic blood pressure 76 mm[Hg] Darnell Tan MD Work Phone: [facility] [employer] 07-15-2024 15:17-0400 Systolic blood pressure 128 mm[Hg] Darnell Tan MD Work Phone: [facility] [employer] 05-27-2024 09:43-0400 Body mass index (BMI) [Ratio] 37.48 kg/m2 Tess Rama DO Work Phone: [facility] 05-27-2024 09:43-0400 Body temperature 97.81 [degF] Tess Rama DO Work Phone: [facility] 05-27-2024 09:43-0400 Body weight 105.33 kg Tess Kenesaw DO Work Phone: [facility] 05-27-2024 09:43-0400 Diastolic blood pressure 73 mm[Hg] Tess Kenesaw DO Work Phone: [facility] 05-27-2024 09:43-0400 Heart rate 113 /min Tess Kenesaw DO Work Phone: [facility] 05-27-2024 09:43-0400 Respiratory rate 16 /min Tess Ontiveros DO Work Phone: [facility] 05-27-2024 09:43-0400 SaO2% (BldA) [Mass fraction] 96 % Tess Wardl DO Work Phone: [facility] 05-27-2024 09:43-0400 Systolic blood pressure 108 mm[Hg] Tess Wardl DO Work Phone: [facility] 05-18-2024 09:17-0400 Body height 167.6 cm Cat Mathews MD Work Phone: [facility] 05-18-2024 09:17-0400 Body mass index (BMI) [Ratio] 37.77 kg/m2 Cat Mathews MD Work Phone: [facility] 05-18-2024 09:17-0400 Body weight 106.14 kg Cat Mathews MD Work Phone: [facility] 05-18-2024 09:17-0400 Diastolic blood pressure 62 mm[Hg] Cat Mathews MD Work Phone: [facility] 05-18-2024 09:17-0400 Heart rate 106 /min Cat Mathews MD Work Phone: [facility] 05-18-2024 09:17-0400 Systolic blood pressure 118 mm[Hg] Cat Mathews MD Work Phone: [facility] 05-13-2024 13:01-0400 Body height 167.6 cm Yanelis Ayala PA-C Work Phone: [facility] 05-13-2024 13:01-0400 Body mass index (BMI) [Ratio] 37.93 kg/m2 Yanelis Ayala PA-C Work Phone: [facility] 05-13-2024 13:01-0400 Body weight 106.59 kg Yanelis Ayala PA-C Work Phone: [facility] 05-11-2024 10:44-0400 Body mass index (BMI) [Ratio] 37.99 kg/m2 Dean Nick MD Work Phone: [facility] 05-11-2024 10:44-0400 Body temperature 97.39 [degF] Dean Nick MD Work Phone: [facility] 05-11-2024 10:44-0400 Body weight 106.78 kg Dean Nick MD Work Phone: [facility] 05-11-2024 10:44-0400 Diastolic blood pressure 61 mm[Hg] Dean Nick MD Work Phone: [facility] 05-11-2024 10:44-0400 Heart rate 97 /min Dean Nick MD Work Phone: [facility] 05-11-2024 10:44-0400 Respiratory rate 14 /min Dean Nick MD Work Phone: [facility] 05-11-2024 10:44-0400 SaO2% (BldA) [Mass fraction] 94 % Dean Nick MD Work Phone: [facility] 05-11-2024 10:44-0400 Systolic blood pressure 98 mm[Hg] Dean Nick MD Work Phone: [facility] 05-08-2024 10:06-0400 Body mass index (BMI) [Ratio] 37.93 kg/m2 Jodi Awan MD PhD Work Phone: [facility] 05-08-2024 10:06-0400 Body weight 106.59 kg Jodi Awan MD PhD Work Phone: [facility] 05-08-2024 10:06-0400 Diastolic blood pressure 71 mm[Hg] Jodi Awan MD PhD Work Phone: [facility] 05-08-2024 10:06-0400 Heart rate 105 /min Jodi Awan MD PhD Work Phone: [facility] 05-08-2024 10:06-0400 SaO2% (BldA) [Mass fraction] 97 % Jodi Awan MD PhD Work Phone: [facility] 05-08-2024 10:06-0400 Systolic blood pressure 128 mm[Hg] Jodi Awan MD PhD Work Phone: [facility] 04-10-2024 06:34-0400 Body height 167.6 cm Zena Pablo MD Work Phone: [facility] 04-10-2024 06:34-0400 Body mass index (BMI) [Ratio] 38.04 kg/m2 Zena Pablo MD Work Phone: [facility] 04-10-2024 06:34-0400 Body temperature 97.3 [degF] Zena Pablo MD Work Phone: [facility] 04-10-2024 06:34-0400 Body weight 106.9 kg Zena Pablo MD Work Phone: [facility] 04-10-2024 06:34-0400 Diastolic blood pressure 68 mm[Hg] Zena Pablo MD Work Phone: [facility] 04-10-2024 06:34-0400 Heart rate 86 /min Zena Pablo MD Work Phone: [facility] 04-10-2024 06:34-0400 Respiratory rate 18 /min Zena Pablo MD Work Phone: [facility] 04-10-2024 06:34-0400 SaO2% (BldA) [Mass fraction] 97 % Zena Pablo MD Work Phone: [facility] 04-10-2024 06:34-0400 Systolic blood pressure 123 mm[Hg] Zena Pablo MD Work Phone: [facility] 03-24-2024 10:39-0400 Body height 162.[address] 03-24-2024 10:39-0400 Body mass index (BMI) [Ratio] 40.66 kg/m2 [facility] 1 [facility] 03-24-2024 10:39-0400 Body weight 107.[address] 02-25-2024 09:30-0400 Body height 162.6 cm Tess Rama DO Work Phone: [facility] 02-25-2024 09:30-0400 Body mass index (BMI) [Ratio] 40.73 kg/m2 Tess Rama DO Work Phone: [facility] 02-25-2024 09:30-0400 Body temperature 97.81 [degF] Tess Kenesaw DO Work Phone: [facility] 02-25-2024 09:30-0400 Body weight 107.64 kg Tess Kenesaw DO Work Phone: [facility] 02-25-2024 09:30-0400 Diastolic blood pressure 80 mm[Hg] Tess Kenesaw DO Work Phone: [facility] 02-25-2024 09:30-0400 Heart rate 96 /min Tess Kenesaw DO Work Phone: [facility] 02-25-2024 09:30-0400 Respiratory rate 16 /min Tess Kenesaw DO Work Phone: [facility] 02-25-2024 09:30-0400 SaO2% (BldA) [Mass fraction] 98 % Tess Rama DO Work Phone: [facility] 02-25-2024 09:30-0400 Systolic blood pressure 124 mm[Hg] Tess Rama DO Work Phone: [facility] 02-24-2024 09:04-0400 Body height 167.6 cm Cat Mathews MD Work Phone: [facility] 02-24-2024 09:04-0400 Body mass index (BMI) [Ratio] 38.41 kg/m2 Cat Mathews MD Work Phone: [facility] 02-24-2024 09:04-0400 Body weight 107.96 kg Cat Mathews MD Work Phone: [facility] 02-24-2024 09:04-0400 Diastolic blood pressure 70 mm[Hg] Cat Mathews MD Work Phone: [facility] 02-24-2024 09:04-0400 Heart rate 94 /min Cat Mathews MD Work Phone: [facility] 02-24-2024 09:04-0400 Systolic blood pressure 126 mm[Hg] Cat Mathews MD Work Phone: [facility] 02-12-2024 14:30-0400 Body height 167.6 cm Zena Pablo MD Work Phone: [facility] 02-12-2024 14:30-0400 Body mass index (BMI) [Ratio] 38.09 kg/m2 Zena Pablo MD Work Phone: [facility] 02-12-2024 14:30-0400 Body weight 107.05 kg Zena Pablo MD Work Phone: [facility] 10-21-2023 08:47-0500 Body height 162.6 cm Cat Mathews MD Work Phone: [facility] 10-21-2023 08:47-0500 Body mass index (BMI) [Ratio] 40.51 kg/m2 Cat Mathews MD Work Phone: [facility] 10-21-2023 08:47-0500 Body weight 107.05 kg Cat Mathews MD Work Phone: [facility] 10-21-2023 08:47-0500 Diastolic blood pressure 80 mm[Hg] Cat Mathews MD Work Phone: [facility] 10-21-2023 08:47-0500 Heart rate 84 /min Cat Mathews MD Work Phone: [facility] 10-21-2023 08:47-0500 Systolic blood pressure 140 mm[Hg] Cat Mathews MD Work Phone: [facility] 09-18-2023 11:05-0500 Body mass index (BMI) [Ratio] 38.79 kg/m2 Mildred Mesko DO Work Phone: [facility] 09-18-2023 11:05-0500 Body temperature 97.5 [degF] Mildred Mesko DO Work Phone: [facility] 09-18-2023 11:05-0500 Body weight 109 kg Mildred Mesko DO Work Phone: [facility] 09-18-2023 11:05-0500 Diastolic blood pressure 74 mm[Hg] Mildred Mesko DO Work Phone: [facility] 09-18-2023 11:05-0500 Heart rate 62 /min Mildred Mesko DO Work Phone: [facility] 09-18-2023 11:05-0500 SaO2% (BldA) [Mass fraction] 94 % Mildred Mesko DO Work Phone: [facility] 09-18-2023 11:05-0500 Systolic blood pressure 118 mm[Hg] Mildred Mesko DO Work Phone: [facility] 08-28-2023 10:13-0500 Body mass index (BMI) [Ratio] 37.77 kg/m2 Soumya Hussein MD Work Phone: [facility] 08-28-2023 10:13-0500 Body weight 106.14 kg Soumya Hussein MD Work Phone: [facility] 08-28-2023 10:130500 Diastolic blood pressure 68 mm[Hg] Soumya Hussein MD Work Phone: [facility] 08-28-2023 10:13-0500 SaO2% (BldA) [Mass fraction] 99 % Soumya Hussein MD Work Phone: [facility] 08-28-2023 10:130500 Systolic blood pressure 120 mm[Hg] Soumya Hussein MD Work Phone: [facility] 08-21-2023 09:40-0500 Body height 167.6 cm Tess Rama DO Work Phone: [facility] 08-21-2023 09:40-0500 Body mass index (BMI) [Ratio] 37.98 kg/m2 Tess Kenesaw DO Work Phone: [facility] 08-21-2023 09:40-0500 Body temperature 96.01 [degF] Tess Kenesaw DO Work Phone: [facility] 08-21-2023 09:40-0500 Body weight 106.73 kg Tess Kenesaw DO Work Phone: [facility] 08-21-2023 09:40-0500 Diastolic blood pressure 77 mm[Hg] Tess Kenesaw DO Work Phone: [facility] 08-21-2023 09:40-0500 Heart rate 77 /min Tess Rama DO Work Phone: [facility] 08-21-2023 09:40-0500 Respiratory rate 16 /min Tess Rama DO Work Phone: [facility] 08-21-2023 09:40-0500 SaO2% (BldA) [Mass fraction] 98 % Tess Rama DO Work Phone: [facility] 08-21-2023 09:40-0500 Systolic blood pressure 130 mm[Hg] Tess Rama DO Work Phone: [facility] 07-04-2023 12:57-0400 Body mass index (BMI) [Ratio] 39.61 kg/m2 Johnathon Bro MD Work Phone: [facility] 07-04-2023 12:57-0400 Body temperature 97.39 [degF] Johnathon Bro MD Work Phone: [facility] 07-04-2023 12:57-0400 Body weight 107.96 kg Johnathon Bro MD Work Phone: [facility] 07-04-2023 12:57-0400 Diastolic blood pressure 80 mm[Hg] Johnathon Bro MD Work Phone: [facility] 07-04-2023 12:57-0400 Heart rate 69 /min Johnathon Bro MD Work Phone: [facility] 07-04-2023 12:57-0400 SaO2% (BldA) [Mass fraction] 98 % Johnathon Bro MD Work Phone: [facility] 07-04-2023 12:57-0400 Systolic blood pressure 130 mm[Hg] Johnathon Bro MD Work Phone: [facility] 05-17-2023 11:32-0400 Body height 167.64 cm Prince Vickers Work Phone: SN-Zpgksaoafh-Djyuf [address] [place] Work Phone: 05-17-2023 11:32-0400 Body mass index (BMI) [Ratio] 38.8 kg/m2 Prince Vickers Work Phone: OS-Bcimjlleuc-Juiad [address] [place] Work Phone: 05-17-2023 11:32-0400 Body surface area Derived from formula 2.16 m2 Prince Vickers Work Phone: FM-Kjmujfjciq-Ibmcc [address] [place] Work Phone: 05-17-2023 11:32-0400 Body weight 109.05 kg Prince Vickers Work Phone: GI-Ptdyaxahpc-Jcher [address] [place] Work Phone: 05-17-2023 11:32-0400 Diastolic blood pressure 73 mm[Hg] Prince Vickers Work Phone: WQ-Pktxdfxxcb-Qjrwc [address] [place] Work Phone: 05-17-2023 11:32-0400 Heart rate 81 /min Prince Vickers Work Phone: RQ-Gxehjylmer-Bebsa [address] [place] Work Phone: 05-17-2023 11:32-0400 SaO2% (BldA) [Mass fraction] 98 % Prince Vickers Work Phone: AN-Bapfejmzao-Jmtlk [address] [place] Work Phone: 05-17-2023 11:32-0400 Systolic blood pressure 148 mm[Hg] Prince Vickers Work Phone: NE-Vsxmndlysw-Vaifs [address] [place] Work Phone: 04-09-2023 13:08-0400 Body height 165.1 cm Prince Vickers DO Work Phone: [facility] 04-09-2023 13:08-0400 Body mass index (BMI) [Ratio] 40.5 kg/m2 Prince Vickers DO Work Phone: [facility] 04-09-2023 13:08-0400 Body temperature 97.59 [degF] Prince Vickers DO Work Phone: [facility] 04-09-2023 13:08-0400 Body weight 110.41 kg Prince Vickers DO Work Phone: [facility] 04-09-2023 13:08-0400 Diastolic blood pressure 64 mm[Hg] Prince Vickers DO Work Phone: [facility] 04-09-2023 13:08-0400 Heart rate 94 /min Prince Vickers DO Work Phone: [facility] 04-09-2023 13:08-0400 SaO2% (BldA) [Mass fraction] 95 % Prince Vickers DO Work Phone: [facility] 04-09-2023 13:08-0400 Systolic blood pressure 110 mm[Hg] Prince Vickers DO Work Phone: [facility] 03-19-2023 09:07-0400 Body height 167.64 cm Efewongbe B Oleghe Work Phone: AA-Knitdfmsog-Qehjq [address] [place] Work Phone: 03-19-2023 09:07-0400 Body mass index (BMI) [Ratio] 39.38 kg/m2 Efewongbe B Oleghe Work Phone: GH-Dvcawwnpbz-Nxvap [address] [place] Work Phone: 03-19-2023 09:07-0400 Body surface area Derived from formula 2.18 m2 Efewongbe B Oleghe Work Phone: WJ-Mgrupkgkwy-Wtprv [address] [place] Work Phone: 03-19-2023 09:07-0400 Body weight 110.68 kg Efewongbe B Oleghe Work Phone: UV-Mijjbtnigs-Yvsts [address] [place] Work Phone: 03-19-2023 09:07-0400 Diastolic blood pressure 76 mm[Hg] Efewongbe B Oleghe Work Phone: VC-Eqstwgxack-Hcvhd [address] [place] Work Phone: 03-19-2023 09:07-0400 Heart rate 79 /min Aries Sapp Oleghe Work Phone: DD-Gfhvqvkrvy-Njdww [address] [place] Work Phone: 03-19-2023 09:07-0400 SaO2% (BldA) [Mass fraction] 97 % Aries Sapp Oleghe Work Phone: RJ-Ajeyvhzgsn-Jphco [address] [place] Work Phone: 03-19-2023 09:07-0400 Systolic blood pressure 153 mm[Hg] Aries Spencerghe Work Phone: [facility] [address] [place] Work Phone: 01-11-2023 13:54-0400 Body height 167.[address] Aries Hill Work Phone: [facility] 01-11-2023 13:54-0400 Body mass index (BMI) [Ratio] 39.4 kg/m2 Dr. Aries Hill Work Phone: [facility] 01-11-2023 13:54-0400 Body temperature 97.3 [degF] Dr. Aries Hill Work Phone: [facility] 01-11-2023 13:54-0400 Body weight 110.[address] Aries Hill Work Phone: [facility] 01-11-2023 13:54-0400 Diastolic blood pressure 77 mm[Hg] Dr. Aries Hill Work Phone: [facility] 01-11-2023 13:54-0400 Heart rate 94 /min Dr. Aries Hill Work Phone: [facility] 01-11-2023 13:54-0400 Respiratory rate 18 /min Dr. Aries Hill Work Phone: [facility] 01-11-2023 13:54-0400 SaO2% (BldA) [Mass fraction] 94 % Dr. Aries Hill Work Phone: [facility] 01-11-2023 13:54-0400 Systolic blood pressure 153 mm[Hg] Dr. Aries Hill Work Phone: [facility] 01-10-2023 08:25-0400 Body mass index (BMI) [Ratio] 39.6 kg/m2 Dr. Aries Hill Work Phone: [facility] 01-10-2023 08:25-0400 Body temperature 98 [degF] Dr. Aries Hill Work Phone: [facility] 01-10-2023 08:25-0400 Body weight 111.[address] Aries Hill Work Phone: [facility] 01-10-2023 08:25-0400 Diastolic blood pressure 78 mm[Hg] Dr. Aries Hill Work Phone: [facility] 01-10-2023 08:25-0400 Heart rate 100 /min Dr. Aries Hill Work Phone: [facility] 01-10-2023 08:25-0400 Respiratory rate 16 /min Dr. Aries Hill Work Phone: [facility] 01-10-2023 08:25-0400 SaO2% (BldA) [Mass fraction] 95 % Dr. Aries Hill Work Phone: [facility] 01-10-2023 08:25-0400 Systolic blood pressure 134 mm[Hg] Dr. Aries Hill Work Phone: [facility] 12-21-2022 06:26-0400 Body height 167.[address] Aries Hill Work Phone: [facility] 12-21-2022 06:26-0400 Body mass index (BMI) [Ratio] 39.5 kg/m2 Dr. Aries Hill Work Phone: [facility] 12-21-2022 06:26-0400 Body temperature 96.5 [degF] Dr. Aries Hill Work Phone: [facility] 12-21-2022 06:26-0400 Body weight 111.[address] Aries Hill Work Phone: [facility] 12-21-2022 06:26-0400 Diastolic blood pressure 62 mm[Hg] Dr. Aries Hill Work Phone: [facility] 12-21-2022 06:26-0400 Heart rate 90 /min Dr. Aries Hill Work Phone: [facility] 12-21-2022 06:26-0400 Respiratory rate 18 /min Dr. Aries Hill Work Phone: [facility] 12-21-2022 06:26-0400 SaO2% (BldA) [Mass fraction] 97 % Dr. Aries Hill Work Phone: [facility] 12-21-2022 06:26-0400 Systolic blood pressure 116 mm[Hg] Dr. Aries Hill Work Phone: [facility] 11-28-2022 08:27-0500 Body temperature 97.9 [degF] Dr. Aries Hill Work Phone: [facility] 11-28-2022 08:27-0500 Body weight 112.[address] Aries Hill Work Phone: [facility] 11-28-2022 08:27-0500 Diastolic blood pressure 78 mm[Hg] Dr. Aries Hill Work Phone: [facility] 11-28-2022 08:27-0500 Heart rate 82 /min Dr. Aries Hill Work Phone: [facility] 11-28-2022 08:27-0500 Respiratory rate 16 /min Dr. Aries Hill Work Phone: [facility] 11-28-2022 08:27-0500 SaO2% (BldA) [Mass fraction] 98 % Dr. Aries Hill Work Phone: [facility] 11-28-2022 08:27-0500 Systolic blood pressure 134 mm[Hg] Dr. Aries Hill Work Phone: [facility] 11-16-2022 14:07-0500 Body mass index (BMI) [Ratio] 40.5 kg/m2 Dr. Aries Hill Work Phone: [facility] 11-16-2022 14:07-0500 Body temperature 97.2 [degF] Dr. Aries Hill Work Phone: [facility] 11-16-2022 14:07-0500 Body weight 113.[address] Aries Hill Work Phone: [facility] 11-16-2022 14:07-0500 Diastolic blood pressure 72 mm[Hg] Dr. Aries Hill Work Phone: [facility] 11-16-2022 14:07-0500 Heart rate 94 /min Dr. Aries Hill Work Phone: [facility] 11-16-2022 14:07-0500 Respiratory rate 16 /min Dr. Aries Hill Work Phone: [facility] 11-16-2022 14:07-0500 SaO2% (BldA) [Mass fraction] 99 % Dr. Aries Hill Work Phone: [facility] 11-16-2022 14:07-0500 Systolic blood pressure 130 mm[Hg] Dr. Aries Hill Work Phone: [facility] 09-03-2022 13:05-0500 Body height 167.[address] Aries Hill Work Phone: [facility] Work Phone: 09-03-2022 13:05-0500 Body mass index (BMI) [Ratio] 40.7 kg/m2 Dr. Aries Hill Work Phone: [facility] 09-03-2022 13:05-0500 Body temperature 96.6 [degF] Dr. Aries Hill Work Phone: [facility] 09-03-2022 13:05-0500 Body weight 114.[address] Aries Hill Work Phone: [facility] 09-03-2022 13:05-0500 Diastolic blood pressure 70 mm[Hg] Dr. Aries Hill Work Phone: [facility] 09-03-2022 13:05-0500 Heart rate 98 /min Dr. Aries Hill Work Phone: [facility] 09-03-2022 13:05-0500 Respiratory rate 16 /min Dr. Aries Hill Work Phone: [facility] 09-03-2022 13:05-0500 SaO2% (BldA) [Mass fraction] 96 % Dr. Aries Hill Work Phone: [facility] 09-03-2022 13:05-0500 Systolic blood pressure 136 mm[Hg] Dr. Aries Hill Work Phone: [facility] 08-20-2022 15:06-0500 Body temperature 96.4 [degF] Dr. Aries Hill Work Phone: [facility] Work Phone: 08-20-2022 15:06-0500 Body weight 112.[address] Aries Hill Work Phone: [facility] Work Phone: 08-20-2022 15:06-0500 Diastolic blood pressure 56 mm[Hg] Dr. Aries Hill Work Phone: [facility] Work Phone: 08-20-2022 15:06-0500 Heart rate 105 /min Dr. Aries Hill Work Phone: [facility] Work Phone: 08-20-2022 15:06-0500 Respiratory rate 18 /min Dr. Aries Hill Work Phone: [facility] Work Phone: 08-20-2022 15:06-0500 SaO2% (BldA) [Mass fraction] 94 % Dr. Aries Hill Work Phone: [facility] Work Phone: 08-20-2022 15:06-0500 Systolic blood pressure 116 mm[Hg] Dr. Aries Hill Work Phone: [facility] Work Phone: 08-14-2022 12:20-0500 Body temperature 97.7 [degF] Dr. Aries Hill Work Phone: [facility] Work Phone: 08-14-2022 12:20-0500 Diastolic blood pressure 70 mm[Hg] Dr. Aries Hill Work Phone: [facility] Work Phone: 08-14-2022 12:20-0500 Heart rate 91 /min Dr. Aries Hill Work Phone: [facility] Work Phone: 08-14-2022 12:20-0500 Respiratory rate 16 /min Dr. Aries Hill Work Phone: [facility] Work Phone: 08-14-2022 12:20-0500 SaO2% (BldA) [Mass fraction] 97 % Dr. Aries Hill Work Phone: [facility] Work Phone: 08-14-2022 12:20-0500 Systolic blood pressure 131 mm[Hg] Dr. Aries Hill Work Phone: [facility] Work Phone: 08-10-2022 17:26-0500 Body weight 109.[address] Aries Hill Work Phone: [facility] Work Phone: 08-08-2022 16:42-0500 Body height 167.[address] Aries Hill Work Phone: [facility] Work Phone: 08-03-2022 14:57-0500 Body mass index (BMI) [Ratio] 41.4 kg/m2 Dr. Aries Hill Work Phone: [facility] Work Phone: 08-03-2022 10:13-0500 Body temperature 97.34 [degF] Pcp Unknown [facility] 08-03-2022 10:13-0500 Diastolic blood pressure 74 mm[Hg] Pcp Unknown [facility] 08-03-2022 10:13-0500 Heart rate 89 /min Pcp Unknown [facility] 08-03-2022 10:13-0500 Respiratory rate 18 /min Pcp Unknown [facility] 08-03-2022 10:13-0500 SaO2% (BldA) [Mass fraction] 97 % Pcp Unknown [facility] 08-03-2022 10:13-0500 Systolic blood pressure 130 mm[Hg] Pcp Unknown [facility] 07-17-2022 07:56-0400 Body mass index (BMI) [Ratio] 40.5 kg/m2 Dr. Aries Hill Work Phone: [facility] Work Phone: 07-17-2022 07:56-0400 Body temperature 98 [degF] Dr. Aries Hill Work Phone: [facility] Work Phone: 07-17-2022 07:56-0400 Body weight 113.[address] Aries Hill Work Phone: [facility] Work Phone: 07-17-2022 07:56-0400 Diastolic blood pressure 80 mm[Hg] Dr. Aries Hill Work Phone: [facility] Work Phone: 07-17-2022 07:56-0400 Heart rate 88 /min Dr. Aries Hill Work Phone: [facility] Work Phone: 07-17-2022 07:56-0400 Respiratory rate 17 /min Dr. Aries Hill Work Phone: [facility] Work Phone: 07-17-2022 07:56-0400 SaO2% (BldA) [Mass fraction] 98 % Dr. Aries Hill Work Phone: [facility] Work Phone: 07-17-2022 07:56-0400 Systolic blood pressure 130 mm[Hg] Dr. Aries Hill Work Phone: [facility] Work Phone: 05-09-2022 10:00-0400 Body mass index (BMI) [Ratio] 39.4 kg/m2 Dr. Aries Hill Work Phone: [facility] Work Phone: 05-09-2022 10:00-0400 Body temperature 96 [degF] Dr. Aries Hill Work Phone: [facility] Work Phone: 05-09-2022 10:00-0400 Body weight 110.[address] Aries Hill Work Phone: [facility] Work Phone: 05-09-2022 10:00-0400 Diastolic blood pressure 69 mm[Hg] Dr. Aries Hill Work Phone: [facility] Work Phone: 05-09-2022 10:00-0400 Heart rate 93 /min Dr. Aries Hill Work Phone: [facility] Work Phone: 05-09-2022 10:00-0400 Respiratory rate 20 /min Dr. Aries Hill Work Phone: [facility] Work Phone: 05-09-2022 10:00-0400 SaO2% (BldA) [Mass fraction] 94 % Dr. Aries Hill Work Phone: [facility] Work Phone: 05-09-2022 10:00-0400 Systolic blood pressure 112 mm[Hg] Dr. Aries Hill Work Phone: [facility] Work Phone: 04-30-2022 10:15-0400 Body mass index (BMI) [Ratio] 39.4 kg/m2 Dr. Aries Hill Work Phone: [facility] Work Phone: 04-30-2022 10:15-0400 Body temperature 97 [degF] Dr. Aries Hill Work Phone: [facility] Work Phone: 04-30-2022 10:15-0400 Body weight 110.[address] Aries Hill Work Phone: [facility] Work Phone: 04-30-2022 10:15-0400 Diastolic blood pressure 68 mm[Hg] Dr. Aries Hill Work Phone: [facility] Work Phone: 04-30-2022 10:15-0400 Heart rate 84 /min Dr. Aries Hill Work Phone: [facility] Work Phone: 04-30-2022 10:15-0400 Respiratory rate 16 /min Dr. Aries Hill Work Phone: [facility] Work Phone: 04-30-2022 10:15-0400 SaO2% (BldA) [Mass fraction] 98 % Dr. Aries Hill Work Phone: [facility] Work Phone: 04-30-2022 10:15-0400 Systolic blood pressure 118 mm[Hg] Dr. Aries Hill Work Phone: [facility] Work Phone: 04-23-2022 08:54-0400 Body height 167.64 cm Luis EMUZEning Work Phone: KR-Gqdzppbgasda-Beo [facility] Work Phone: 04-23-2022 08:54-0400 Body mass index (BMI) [Ratio] 40.03 kg/m2 Luis [employer] Work Phone: FZ-Dkbowezibdxz-Bco [facility] Work Phone: 04-23-2022 08:54-0400 Body surface area Derived from formula 2.19 m2 Luis H Gunning Work Phone: VW-Bnysgflwcybv-Wih [facility] Work Phone: 04-23-2022 08:54-0400 Body weight 112.49 kg Luis EMUZEning Work Phone: GQ-Ndamsfkrrokt-Bfn [place] Work Phone: 04-11-2022 15:11-0400 Diastolic blood pressure 71 mm[Hg] Dr. Aries Hill Work Phone: [facility] Work Phone: 04-11-2022 15:11-0400 Heart rate 94 /min Dr. Aries Hill Work Phone: [facility] Work Phone: 04-11-2022 15:11-0400 Systolic blood pressure 112 mm[Hg] Dr. Aries Hill Work Phone: [facility] Work Phone: 04-11-2022 14:16-0400 Body temperature 97 [degF] Dr. Aries Hill Work Phone: [facility] Work Phone: 04-11-2022 14:16-0400 Respiratory rate 18 /min Dr. Aries Hill Work Phone: [facility] Work Phone: 04-11-2022 14:16-0400 SaO2% (BldA) [Mass fraction] 97 % Dr. Aries Hill Work Phone: [facility] Work Phone: 04-10-2022 11:40-0400 Body height 167.[address] Aries Hill Work Phone: [facility] Work Phone: 04-10-2022 11:40-0400 Body mass index (BMI) [Ratio] 40 kg/m2 Dr. Aries Hill Work Phone: [facility] Work Phone: 04-10-2022 11:40-0400 Body weight 112.[address] Aries Hill Work Phone: [facility] Work Phone: 04-10-2022 10:35-0400 Body temperature 97.8 [degF] Dr. Aries Hill Work Phone: [facility] Work Phone: 04-10-2022 10:35-0400 Diastolic blood pressure 83 mm[Hg] Dr. Aries Hill Work Phone: [facility] Work Phone: 04-10-2022 10:35-0400 Heart rate 87 /min Dr. Aries Hill Work Phone: [facility] Work Phone: 04-10-2022 10:35-0400 Respiratory rate 20 /min Dr. Aries Hill Work Phone: [facility] Work Phone: 04-10-2022 10:35-0400 SaO2% (BldA) [Mass fraction] 98 % Dr. rAies Hill Work Phone: [facility] Work Phone: 04-10-2022 10:35-0400 Systolic blood pressure 131 mm[Hg] Dr. Aries Hill Work Phone: [facility] Work Phone: 04-10-2022 07:06-0400 Body height 167.[address] Aries Hill Work Phone: [facility] Work Phone: 04-10-2022 07:06-0400 Body mass index (BMI) [Ratio] 40.3 kg/m2 Dr. Aries Hill Work Phone: [facility] Work Phone: 04-10-2022 07:06-0400 Body weight 113.[address] Aries Hill Work Phone: [facility] Work Phone: 02-08-2022 13:19-0400 Body height 165.[address] Aries Hill Work Phone: [facility] Work Phone: 02-08-2022 13:19-0400 Body mass index (BMI) [Ratio] 41.5 kg/m2 Dr. Aries Hill Work Phone: [facility] Work Phone: 02-08-2022 13:19-0400 Body temperature 98.4 [degF] Dr. Aries Hill Work Phone: [facility] Work Phone: 02-08-2022 13:19-0400 Body weight 113.[address] Aries Hill Work Phone: [facility] Work Phone: 02-08-2022 13:19-0400 Diastolic blood pressure 80 mm[Hg] Dr. Aries Hill Work Phone: [facility] Work Phone: 02-08-2022 13:19-0400 Heart rate 101 /min Dr. Aries Hill Work Phone: [facility] Work Phone: 02-08-2022 13:19-0400 Respiratory rate 20 /min Dr. Aries Hill Work Phone: [facility] Work Phone: 02-08-2022 13:19-0400 SaO2% (BldA) [Mass fraction] 97 % Dr. Aries Hill Work Phone: [facility] Work Phone: 02-08-2022 13:19-0400 Systolic blood pressure 148 mm[Hg] Dr. Aries Hill Work Phone: [facility] Work Phone: 02-08-2022 13:19-0400 Body height 165.[address] Antonio Brooks Work Phone: [facility] Work Phone: 02-08-2022 13:19-0400 Body mass index (BMI) [Ratio] 41.5 kg/m2 Dr. Antonio Brooks Work Phone: [facility] Work Phone: 02-08-2022 13:19-0400 Body temperature 98.4 [degF] Dr. Antonio Brooks Work Phone: [facility] Work Phone: 02-08-2022 13:19-0400 Body weight 113.[address] Antonio Brooks Work Phone: [facility] Work Phone: 02-08-2022 13:19-0400 Diastolic blood pressure 80 mm[Hg] Dr. Antonio Brooks Work Phone: [facility] Work Phone: 02-08-2022 13:19-0400 Heart rate 101 /min Dr. Antonio Brooks Work Phone: [facility] Work Phone: 02-08-2022 13:19-0400 Respiratory rate 20 /min Dr. Antonio Brooks Work Phone: [facility] Work Phone: 02-08-2022 13:19-0400 SaO2% (BldA) [Mass fraction] 97 % Dr. Antonio Brooks Work Phone: [facility] Work Phone: 02-08-2022 13:19-0400 Systolic blood pressure 148 mm[Hg] Dr. Antonio Brooks Work Phone: [facility] Work Phone: 02-05-2022 09:34-0400 Body mass index (BMI) [Ratio] 43.2 kg/m2 Dr. Aries Hill Work Phone: [facility] Work Phone: 02-05-2022 09:34-0400 Body temperature 95.1 [degF] Dr. Aries Hill Work Phone: [facility] Work Phone: 02-05-2022 09:34-0400 Body weight 117.[address] Aries Hill Work Phone: [facility] Work Phone: 02-05-2022 09:34-0400 Diastolic blood pressure 82 mm[Hg] Dr. Aries Hill Work Phone: [facility] Work Phone: 02-05-2022 09:34-0400 Heart rate 98 /min Dr. Aries Hill Work Phone: [facility] Work Phone: 02-05-2022 09:34-0400 Respiratory rate 22 /min Dr. Aries Hill Work Phone: [facility] Work Phone: 02-05-2022 09:34-0400 SaO2% (BldA) [Mass fraction] 98 % Dr. Aries Hill Work Phone: [facility] Work Phone: 02-05-2022 09:34-0400 Systolic blood pressure 130 mm[Hg] Dr. Aries Hill Work Phone: [facility] Work Phone: 02-05-2022 09:34-0400 Body mass index (BMI) [Ratio] 43.2 kg/m2 Dr. Antonio Brooks Work Phone: [facility] Work Phone: 02-05-2022 09:34-0400 Body temperature 95.1 [degF] Dr. Antonio Brooks Work Phone: [facility] Work Phone: 02-05-2022 09:34-0400 Body weight 117.[address] Antonio Brooks Work Phone: [facility] Work Phone: 02-05-2022 09:34-0400 Diastolic blood pressure 82 mm[Hg] Dr. Antonio Brooks Work Phone: [facility] Work Phone: 02-05-2022 09:34-0400 Heart rate 98 /min Dr. Antonio Brooks Work Phone: [facility] Work Phone: 02-05-2022 09:34-0400 Respiratory rate 22 /min Dr. Antonio Brooks Work Phone: [facility] Work Phone: 02-05-2022 09:34-0400 SaO2% (BldA) [Mass fraction] 98 % Dr. Antonio Brooks Work Phone: [facility] Work Phone: 02-05-2022 09:34-0400 Systolic blood pressure 130 mm[Hg] Dr. Antonio Brooks Work Phone: [facility] Work Phone: 12-18-2021 09:01-0400 Body mass index (BMI) [Ratio] 41.4 kg/m2 Dr. Aries Hill Work Phone: [facility] Work Phone: 12-18-2021 09:01-0400 Body temperature 95.6 [degF] Dr. Aries Hill Work Phone: [facility] Work Phone: 12-18-2021 09:01-0400 Body weight 112.[address] Aries Hill Work Phone: [facility] Work Phone: 12-18-2021 09:01-0400 Diastolic blood pressure 88 mm[Hg] Dr. Aries Hill Work Phone: [facility] Work Phone: 12-18-2021 09:01-0400 Heart rate 86 /min Dr. Aries Hill Work Phone: [facility] Work Phone: 12-18-2021 09:01-0400 Respiratory rate 16 /min Dr. Aries Hill Work Phone: [facility] Work Phone: 12-18-2021 09:01-0400 SaO2% (BldA) [Mass fraction] 99 % Dr. Aries Hill Work Phone: [facility] Work Phone: 12-18-2021 09:01-0400 Systolic blood pressure 128 mm[Hg] Dr. Aries Hill Work Phone: [facility] Work Phone: 12-18-2021 09:01-0400 Body mass index (BMI) [Ratio] 41.4 kg/m2 Dr. Antonio Brooks Work Phone: [facility] Work Phone: 12-18-2021 09:01-0400 Body temperature 95.6 [degF] Dr. Antonio Brooks Work Phone: [facility] Work Phone: 12-18-2021 09:01-0400 Body weight 112.[address] Antonio Brooks Work Phone: [facility] Work Phone: 12-18-2021 09:01-0400 Diastolic blood pressure 88 mm[Hg] Dr. Antonio Brooks Work Phone: [facility] Work Phone: 12-18-2021 09:01-0400 Heart rate 86 /min Dr. Antonio Brooks Work Phone: [facility] Work Phone: 12-18-2021 09:01-0400 Respiratory rate 16 /min Dr. Antonio Brooks Work Phone: [facility] Work Phone: 12-18-2021 09:01-0400 SaO2% (BldA) [Mass fraction] 99 % Dr. Antonio Brooks Work Phone: [facility] Work Phone: 12-18-2021 09:01-0400 Systolic blood pressure 128 mm[Hg] Dr. Antonio Brooks Work Phone: [facility] Work Phone: 11-06-2021 13:52-0500 Body mass index (BMI) [Ratio] 41.5 kg/m2 Dr. Antonio Brooks Work Phone: [facility] Work Phone: 11-06-2021 13:52-0500 Body temperature 96.5 [degF] Dr. Antonio Brooks Work Phone: [facility] Work Phone: 11-06-2021 13:52-0500 Body weight 113.[address] Antonio Brooks Work Phone: [facility] Work Phone: 11-06-2021 13:52-0500 Diastolic blood pressure 78 mm[Hg] Dr. Antonio Brooks Work Phone: [facility] Work Phone: 11-06-2021 13:52-0500 Heart rate 72 /min Dr. Antonio Brooks Work Phone: [facility] Work Phone: 11-06-2021 13:52-0500 Respiratory rate 20 /min Dr. Antonio Brooks Work Phone: [facility] Work Phone: 11-06-2021 13:52-0500 SaO2% (BldA) [Mass fraction] 100 % Dr. Antonio Brooks Work Phone: [facility] Work Phone: 11-06-2021 13:52-0500 Systolic blood pressure 140 mm[Hg] Dr. Antonio Brooks Work Phone: [facility] Work Phone: 10-31-2021 13:26-0500 Diastolic blood pressure 94 mm[Hg] Dr. Antonio Brooks Work Phone: [facility] Work Phone: 10-31-2021 13:26-0500 Heart rate 54 /min Dr. Antonio Brooks Work Phone: [facility] Work Phone: 10-31-2021 13:26-0500 SaO2% (BldA) [Mass fraction] 97 % Dr. Antonio Brooks Work Phone: [facility] Work Phone: 10-31-2021 13:26-0500 Systolic blood pressure 152 mm[Hg] Dr. Antonio Brooks Work Phone: [facility] Work Phone: 06-08-2021 12:19-0400 Diastolic blood pressure 84 mm[Hg] Cinthia Faith MD Work Phone: [facility] Work Phone: 06-08-2021 12:19-0400 Heart rate 83 /min Cinthia Faith MD Work Phone: [facility] Work Phone: 06-08-2021 12:19-0400 Respiratory rate 18 /min Cinthia Faith MD Work Phone: [facility] Work Phone: 06-08-2021 12:19-0400 SaO2% (BldA) [Mass fraction] 95 % Cinthia Faith MD Work Phone: [employer] Work Phone: 06-08-2021 12:19-0400 Systolic blood pressure 155 mm[Hg] Cinthia Faith MD Work Phone: [facility] Work Phone: 06-08-2021 10:08-0400 Body height 165.1 cm Cinthia Faith MD Work Phone: [facility] Work Phone: 06-08-2021 10:08-0400 Body mass index (BMI) [Ratio] 40.1 kg/m2 Cinthia Faith MD Work Phone: [facility] Work Phone: 06-08-2021 10:08-0400 Body temperature 97.39 [degF] Cinthia Faith MD Work Phone: [employer] Work Phone: 06-08-2021 10:08-0400 Body weight 109.32 kg Cinthia Faith MD Work Phone: [employer] Work Phone: 03-08-2021 13:55-0400 Diastolic blood pressure 87 mm[Hg] Cinthia Faith MD Work Phone: [employer] Work Phone: 03-08-2021 13:55-0400 Heart rate 84 /min Cinthia Faith MD Work Phone: [employer] Work Phone: 03-08-2021 13:55-0400 Respiratory rate 16 /min Cinthia Faith MD Work Phone: [employer] Work Phone: 03-08-2021 13:55-0400 SaO2% (BldA) [Mass fraction] 100 % Cinthia Faith MD Work Phone: [employer] Work Phone: 03-08-2021 13:55-0400 Systolic blood pressure 167 mm[Hg] Cinthia Faith MD Work Phone: [employer] Work Phone: 03-08-2021 11:04-0400 Body height 165.1 cm Cinthia Faith MD Work Phone: [employer] Work Phone: 03-08-2021 11:04-0400 Body mass index (BMI) [Ratio] 39.94 kg/m2 Cinthia Faith MD Work Phone: [employer] Work Phone: 03-08-2021 11:04-0400 Body temperature 96.69 [degF] Cinthia Faith MD Work Phone: [employer] Work Phone: 03-08-2021 11:04-0400 Body weight 108.86 kg Cinthia Faith MD Work Phone: [employer] Work Phone: 03-12-2020 08:49-0400 Body Temperature 96.69 [degF] Luis Mendiola[employer]Sonics [facility], [place] 03-12-2020 08:49-0400 BP Diastolic 74 mm[Hg] [facility] [place] 03-12-2020 08:49-0400 BP Systolic 122 mm[Hg] [facility] [place] 03-12-2020 08:49-0400 Pulse (Heart Rate) 86 /min Luis [facility] [place] 03-12-2020 08:49-0400 Pulse Oximetry 96 % Luis [facility] [place] 03-12-2020 08:49-0400 Respiratory Rate 18 /min Luis MEDNAX [facility], [place] 03-11-2020 01:00-0400 BMI (Body Mass Index) 37.93 kg/m2 Luis Mendiolaowell [facility] [place] 03-11-2020 01:00-0400 Body weight 106.59 kg Luis Gallegos [facility] , [place] 03-11-2020 01:00-0400 Height 167.6 cm Luis Gallegos [facility] , [place] 06-11-2019 09:15-0400 Body Temperature 98.01 [degF] [facility] [place] 06-11-2019 09:15-0400 BP Diastolic 71 mm[Hg] [facility] [place] 06-11-2019 09:15-0400 BP Systolic 131 mm[Hg] [facility] , [place] 06-11-2019 09:15-0400 Pulse (Heart Rate) 78 /min [facility] 06-11-2019 09:15-0400 Pulse Oximetry 98 % [facility] [place] 06-11-2019 09:15-0400 Respiratory Rate 18 /min [facility] [place] 06-09-2019 10:44-0400 BMI (Body Mass Index) 36.8 kg/m2 [facility] 06-09-2019 10:44-0400 Body weight 103.42 kg [facility] [place] 06-09-2019 10:44-0400 Height 167.6 cm [facility] , [place] 06-02-2019 16:57-0400 BP Diastolic 88 mm[Hg] [facility] , 06-02-2019 16:57-0400 BP Systolic 149 mm[Hg] [facility] , [place] 06-02-2019 16:57-0400 Pulse (Heart Rate) 85 /min [facility] 06-02-2019 15:47-0400 BMI (Body Mass Index) 36.15 kg/m2 [facility], [place] 06-02-2019 15:47-0400 Body Temperature 97 [degF] [facility] 06-02-2019 15:47-0400 Body weight 101.61 kg [facility] [place] 06-02-2019 15:47-0400 Height 167.6 cm [facility] [place] 06-02-2019 15:47-0400 Pulse Oximetry 98 % [facility] [place] 02-04-2019 12:09-0400 BMI (Body Mass Index) 33.61 kg/m2 Jaylin Haresh [facility] Work Phone: 02-04-2019 12:090400 Body weight 91.63 kg Jaylin Spencersurendra [facility] Work Phone: 02-04-2019 12:090400 BSA (Body Surface Area) 1.99 m2 Jaylin Hutson [facility] Work Phone: 02-04-2019 12:090400 Height 165.1 cm Jaylin Spencersurendra [facility] Work Phone: Encounters Encounter Date Encounter Type Care Provider Facility Start: 04-05-2025 End: 04-05-[address] Tess Ontiveros DO Work Phone: [facility] Start: 04-05-2025 End: 04-05-[address] Antonio Brooks MD [facility] Work Phone: Start: 04-02-2025 End: 04-02-2025 ambulatory CYNTHIA BOOTH [facility] Amb[facility] Start: 04-02-2025 End: 04-02-2025 Telemedicine consultation with patient Cynthia Booth PharmD Work Phone: [facility] Comment on above: Type 2 diabetes kal itus with hyperglycemia, with long-term current use of insulin (Primary Dx) Start: 04-01-2025 Registered Referred Self Referred [facility] Work Phone: Start: 04-01-2025 ambulatory Self Referred Facility: [facility] Start: 03-30-2025 End: 03-30-2025 Subsequent hospital visit by physician Kelli [id number] Mammo 1 [facility] Comment on above: Screening mammogram for breast cancer Start: 03-30-2025 End: 03-30-2025 ambulatory TESS ONTIVEROS [facility] Start: 03-24-[address] Saurav borrego MD -Cardiac Rehab Work Phone: Start: 03-24-2025 ambulatory Saurav Arellano Facility:[facility] Start: 03-22-2025 End: 03-22-[address] Aries Hill MD Work Phone: -Cardiac Rehab Start: 03-22-2025 End: 03-22-[address] 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 Start: 03-03-2025 End: 03-03-2025 ambulatory [facility] Start: 02-24-2025 End: 02-24-2025 Assay of hemosiderin, quant Tess Ontiveros DO Work Phone: [facility] Work Phone: Start: 02-24-2025 End: 02-24-2025 Patient encounter procedure Tess Ontiveros DO Work Phone: [facility] Comment on above: Routine general medi devyn examination at health care facility (Primary Dx); Medicare annual wellness visit, subsequent; HTN (hypertension), benign; Hyperlipidemia, unspecified hyperlipidemia type; Ischemic cardiomyopathy; History of ST elevation myocardial infarction (STEMI); Morbid obesity with body mass index (BMI) of 40.0 to 44.9 in adult (Multi); Alexis's thyroiditis; Type 2 diabetes mellitus with diabetic neuropathy, with long-term current use of insulin; Vitamin D deficiency; Gastroesophageal reflux disease, unspecified whether esophagitis present; Eosinophilic esophagitis; Recurrent major depressive disorder, in full remission; Gout of foot, unspecified cause, unspecified chronicity, unspecified laterality; Spinal stenosis of lumbar region, unspecified whether neurogenic claudication present; Gout, unspecified cause, unspecified chronicity, unspecified site; Screening mammogram for breast cancer Start: 02-24-2025 End: 02-24-2025 ambulatory [facility] Ambulatory Start: 02-24-2025 End: 02-24-2025 Encounter for general adult medical examination without abnormal findings [facility] Start: 02-19-2025 End: 02-20-[address] Aries Hill MD Work Phone: [facility] Work Phone: Start: 02-19-2025 End: 02-20-[address] Saurav Arellano MD -Cardiac Rehab Work Phone: Start: 02-17-2025 End: 02-17-2025 Office outpatient visit 15 minutes Darnell Tan MD Work Phone: [facility] Comment on above: Recurrent UTI (Prima ry Dx) Start: 02-17-2025 End: 02-17-2025 ambulatory DARNELLSalima TAN [facility] Start: 02-03-2025 End: 02-03-2025 Office outpatient visit 25 minutes Cat Mathews MD Work Phone: [facility] Comment on above: Type 2 diabetes kal itus with hyperglycemia, with long-term current use of insulin Start: 02-03-2025 End: 02-03-2025 ambulatory CAT MATHEWS [facility] Ambulatory Start: 01-20-2025 End: 01-20-2025 ambulatory Saurav Arellano Facility:[facility] Start: 01-20-2025 End: 01-20-[address] Saurav Arellano MD -Cardiac Rehab Work Phone: Start: 01-19-2025 End: 01-19-2025 Office outpatient visit 25 minutes Jodi Awan MD PhD Work Phone: [facility] Comment on above: ST elevation myocard ial infarction involving left anterior descending (LAD) coronary artery (Multi) (Primary Dx); Ischemic cardiomyopathy; Arteriosclerosis of coronary artery; Hyperlipidemia, unspecified hyperlipidemia type; SVT (supraventricular tachycardia) ([facility]); HTN (hypertension), benign Start: 01-19-2025 End: 01-19-2025 ambulatory JODI Wilkerson [facility] Start: 01-05-2025 End: 01-05-2025 Office outpatient visit 25 minutes Ji Galo MD Work Phone: [facility] Comment on above: Epigastric pain (Alejandra tra Dx); Eosinophilic esophagitis Start: 01-05-2025 End: 01-05-2025 ambulatory [facility] Ambulatory Start: 12-25-2024 End: 12-25-2024 ambulatory [facility] Ambulatory Start: 12-23-2024 ambulatory [facility] Facility:[facility] Start: 12-23-2024 Non-patient / Non-visit Dr. Elio coburn MD -[facility] Start: 12-23-2024 End: 12-23-2024 Emergency department patient visit Dr. Aries Hill MD Work Phone: -Emergency Department Work Phone: Start: 12-23-[address] Saurav borrego MD -Cardiac Rehab Work Phone: Start: 12-21-2024 End: 12-21-[address] Aries Hill MD Work Phone: [facility] Work Phone: Start: 12-21-2024 End: 12-21-[address] 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 Saurav borrego MD -Cardiac Rehab Work Phone: Start: 12-11-2024 End: 12-11-2024 ambulatory [facility] Amb[facility] Start: 12-04-2024 End: 12-04-[address] Aries Hill MD Work Phone: [facility] Work Phone: Start: 12-04-2024 End: 12-04-[address] Saurav Arellano MD -Cardiac Rehab Work Phone: Start: 12-03-2024 End: 12-03-2024 Transitional care manage srvc 7 day discharge Tess Ontiveros DO Work Phone: [facility] Comment on above: Hospital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 Work Phone: Start: 03-10-2018 Patient encounter procedure Jaylin Hutson MP[facility] Work Phone: Start: 03-05-2018 Patient encounter procedure Jaylin Hutson [facility] Work Phone: Start: 03-03-2018 Patient encounter procedure Jaylin Hutson -[facility] Work Phone: Start: 02-14-2018 Patient encounter procedure Jaylin Hutson -[facility] Work Phone: Start: 02-12-2018 Patient encounter procedure Jaylin Hutson -[facility] Work Phone: Start: 01-29-2018 Patient encounter procedure Jaylin Hutson -[facility] Work Phone: Start: 12-30-2017 Patient encounter procedure Jaylin Hutson -[facility] Work Phone: Start: 12-23-2017 Patient encounter procedure Jaylin Hutson -[facility] Work Phone: Start: 12-10-2017 Patient encounter procedure Jaylin Hutson -[facility] Work Phone: Start: 12-05-2017 Patient encounter procedure Jaylin Hutson -[facility] Work Phone: Start: 12-04-2017 Patient encounter procedure Jaylin Hutson -[facility] Work Phone: Start: 11-18-2017 Patient encounter procedure Jaylin Hutson -[facility] Work Phone: Start: 10-25-2017 Patient encounter procedure Jaylin Hutson -[facility] Work Phone: Start: 10-11-2017 Patient encounter procedure Jaylin Hutson -[facility] Work Phone: Start: 10-08-2017 Patient encounter procedure Jaylin Hutson -[facility] Work Phone: Start: 10-02-2017 Patient encounter procedure Jaylin Hutson -[facility] Work Phone: Start: 09-18-2017 Patient encounter procedure Jaylin Hutson [facility] Work Phone: Start: 09-12-2017 Patient encounter procedure Jaylin Hutson -[facility] Work Phone: Start: 09-04-2017 Patient encounter procedure Jaylin Hutson -[facility] Work Phone: Start: 08-23-2017 Patient encounter procedure Jaylin Hutson -[facility] Work Phone: Start: 08-06-2017 Patient encounter procedure Jaylin Hutson -[facility] Work Phone: Start: 08-02-2017 Patient encounter procedure Jaylin Hutson -[facility] Work Phone: Start: 07-30-2017 Patient encounter procedure Jaylin Hutson -[facility] Work Phone: Start: 07-16-2017 Patient encounter procedure Jaylin Hutson -[facility] Work Phone: Start: 07-05-2017 Patient encounter procedure Jaylin Hutson -[facility] Work Phone: Start: 07-02-2017 Patient encounter procedure Jaylin Hutson -[facility] Work Phone: Start: 06-25-2017 Patient encounter procedure Jaylin Hutson -[facility] Work Phone: Start: 06-11-2017 Patient encounter procedure Jaylin Hutson -[facility] Work Phone: Start: 05-21-2017 Patient encounter procedure Jaylin Hutson [facility] Work Phone: Start: 05-06-2017 End: 05-06-2017 Emergency department patient visit [facility] Facility[facility] Start: 03-19-2017 Patient encounter procedure Jaylin Hutson [facility] Work Phone: Start: 02-08-2017 Patient encounter procedure Jyalin Hutson [facility] Work Phone: Patient encounter status Luis Starks Work Phone: DK-Jxcukbjpmgbs-Ocdhom ketan Work Phone: Procedures Date Procedure Procedure Detail Performing Clinician Start: 03-30-[address] PharmD Work Phone: Start: 01-28-2025 Lipid 1996 panel - S cruz or Plasma Cat Mathews MD Work Phone: Start: 01-28-2025 Thyrotropin [Units/volume] in Serum or Plasma Cat Mathews MD Work Phone: Start: 12-17-2024 Ecg routine ecg w/le ast 12 lds trcg only w/o i&r Radha Kaitlynn AMMONIA BOX OPERATOR-CORPORATE SECURITY OFFICER Work Phone: Start: 12-03-2024 Urnls dip stick/tabl et rgnt auto w/o microscopy Tess C Rama DO Work Phone: Start: 11-28-[address] Aries Hill MD Work Phone: Start: 11-26-2024 Coagulation time, activated Dr. Aries Hill MD Work Phone: Start: 11-16-2024 Hemoglobin glycosyla talon a1c Cat Mathews MD Work Phone: Start: 10-28-2024 Colorectal scrn; hi risk ind Ji Galo MD Work Phone: Start: 10-28-2024 Egd transoral biopsy single/multiple Ji Galo MD Work Phone: Start: 10-28-2024 POCT GLUCOSE METER Ji Galo MD Work Phone: Start: 10-28-2024 PULSE OXIMETRY, CONTINUOUS Ji Galo MD Work Phone: Start: 10-28-2024 PULSE OXIMETRY, SPOT Juan Manuel Galo MD Work Phone: Start: 10-28-2024 Colonoscopy Ji Galo MD Work Phone: Start: 08-17-2024 Thyrotropin [Units/volume] in Serum or Plasma Cat Mathews MD Work Phone: Start: 07-15-2024 Urnls dip stick/tabl et rgnt non-auto w/o micrscp Darnell Tan MD Work Phone: Start: 06-08-2024 Thyrotropin [Units/volume] in Serum or Plasma Darnell Tan MD Work Phone: Start: 05-27-2024 Ecg routine ecg w/le ast 12 lds w/i&r Tess C Kenesaw DO Work Phone: Start: 04-10-2024 Glucose quantitative blood xcpt reagent strip Zena Pablo MD Work Phone: Start: 04-10-2024 PULSE OXIMETRY, SPOT Ashley Pablo MD Work Phone: Start: 03-24-2024 Mammography Zena garcia MD Work Phone: Start: 02-25-2024 Thyrotropin [Units/volume] in Serum or Plasma Jodi Awan MD PhD Work Phone: Start: 01-20-2024 Mri spinal canal lum bar w/o contrast material Yanelis Ayala PA-C Work Phone: Start: 10-21-2023 Lipid 1996 panel - S cruz or Plasma Cat Mathews MD Work Phone: Start: 10-21-2023 Thyrotropin [Units/volume] in Serum or Plasma Aysha Lang DPM Work Phone: Start: 09-18-2023 Urnls dip stick/tabl et rgnt auto w/o microscopy Mildred Garry Delvin DO Work Phone: Start: 05-21-2023 Hepatic function panel Aysha Lang DPM Work Phone: Start: 03-20-2023 Lipid 1996 panel - S cruz or Plasma Prince Rancho DO Work Phone: Start: 01-11-2023 Plain x-ray of hand Dr. Aries Hill Work Phone: Start: 12-25-2022 Mammography Prince lau DO Work Phone: Start: 09-11-2022 Dual energy X-ray absorptiometry Dr. Aries Hill Work Phone: Start: 09-04-2022 Plain X-ray of shoulder Dr. Aries Hill Work Phone: Start: 03-05-2022 End: 03-05-2022 MRI of joint of lower extremity Dr. Aries Hill Work Phone: Start: 02-26-2022 Plain x-ray of pelvi s and lower extremity Dr. Aries Hill Work Phone: Start: 06-08-2021 HM ENDOSCOPY REPORT 3m Scanning Start: 03-08-2021 End: 03-08-2021 Colonoscopy 3m Scanning Start: 03-08-2021 Gluc bld gluc mntr d ev cleared fda spec home use Cinthia Faith MD Work Phone: Start: 08-22-2020 Mri abdomen w/o & w/contrast material Jodi Palma Work Phone: Start: 08-22-2020 Ct angiography chest w/contrast/noncontrast Jodi Palma Work Phone: Start: 06-02-2020 Us abdominal real ti me w/image limited Luis Starks Work Phone: Start: 06-02-2020 Acute hepatitis panel R anton Starks Work Phone: Start: 03-12-2020 Gluc bld gluc mntr d ev cleared fda spec home use Parminder Geube Work Phone: Start: 03-12-2020 Gluc bld gluc mntr d ev cleared fda spec home use Parminder Geube Work Phone: Start: 03-12-2020 Basic metabolic pane l calcium total Carlota Singam Work Phone: Start: 03-12-2020 Blood count complete automated Marry Mary Work Phone: Start: 03-11-2020 Gluc bld gluc mntr d ev cleared fda spec home use Parminder ReefEdgeube Work Phone: Start: 03-11-2020 25 hydroxy includes fractions if performed Lindsey Lowry Work Phone: Start: 03-11-2020 Assay of thyroid stimulating hormone tsh Lindsey Lowry Work Phone: Start: 03-11-2020 Cyanocobalamin vitam in b-12 Lindsey Lowry Work Phone: Start: 03-11-2020 Gluc bld gluc mntr d ev cleared fda spec home use Parminder ReefEdgeube Work Phone: Start: 03-11-2020 Radex shoulder compl ete minimum 2 views Zina Mcpherson Work Phone: Start: 03-11-2020 Radex spine cervical 2 or 3 views Zina Mcpherson Work Phone: Start: 03-11-2020 Gluc bld gluc mntr d ev cleared fda spec home use Parminder Geube Work Phone: Start: 03-11-2020 Gluc bld gluc mntr d ev cleared fda spec home use Asad Espinosa Work Phone: Start: 03-11-2020 Gluc bld gluc mntr d ev cleared fda spec home use Asad Espinosa Work Phone: Start: 03-10-2020 Drug screen class list a Parminder Geube Work Phone: Start: 03-10-2020 Urnls dip stick/tabl et rgnt auto w/o microscopy Parminder Geube Work Phone: Start: 03-10-2020 PROTIME/INR & PTT Luis Beau Gallegos Work Phone: Start: 03-10-2020 Radiologic examinati on knee 1/2 views Adele A [place] Work Phone: Start: 03-10-2020 Radiologic exam ches t single view Parminder Geube Work Phone: Start: 03-10-2020 Radiologic examinati on pelvis 1/2 views Parminder Geube Work Phone: Start: 03-10-2020 Ct cervical spine w/ o contrast material Parminder Geube Work Phone: Start: 03-10-2020 Ct head/brain w/o contrast material Parminder Geube Work Phone: Start: 03-10-2020 Ct thorax w/contrast material Parminder Geube Work Phone: Start: 03-10-2020 Blood typing serolog ic abo Parminder Geube Work Phone: Start: 03-10-2020 Assay of ethanol Aleksa ndar Geube Work Phone: Start: 03-10-2020 Assay of troponin quantitative Parminder Geube Work Phone: Start: 03-10-2020 Basic metabolic pane l calcium total Parminder Geube Work Phone: Start: 03-10-2020 Blood count complete automated Parminder Geube Work Phone: Start: 03-10-2020 Hemoglobin glycosyla talon a1c Parminder ReefEdgeube Work Phone: Start: 03-10-2020 Ecg routine ecg w/le ast 12 lds w/i&r Luis D Rosy Work Phone: Start: 01-26-2020 Assay of blood/uric acid Aysha Lang Work Phone: Start: 01-26-2020 Sedimentation rate r bc automated Aysha Lang Work Phone: Start: 12-23-2019 Assay of blood/uric acid Aysha Lang Work Phone: Start: 12-23-2019 Sedimentation rate r bc automated Aysha Lang Work Phone: Start: 06-11-2019 Gluc bld gluc mntr d ev cleared fda spec home use Darnell Orasanu Work Phone: Start: 06-11-2019 Gluc bld gluc mntr d ev cleared fda spec home use Darnell Orasanu Work Phone: Start: 06-10-2019 Gluc bld gluc mntr d ev cleared fda spec home use Darnell Orasanu Work Phone: Start: 06-10-2019 Gluc bld gluc mntr d ev cleared fda spec home use Darnell Orasanu Work Phone: Start: 06-10-2019 OPERATIVE REPORT 3m Sca nning Start: 06-10-2019 Gluc bld gluc mntr d ev cleared fda spec home use Darnell Orasanu Work Phone: Start: 06-10-2019 Gluc bld gluc mntr d ev cleared fda spec home use Darnell Orasanu Work Phone: Start: 06-10-2019 Blood count hemoglobin Bre Moo Work Phone: Start: 06-09-2019 Gluc bld gluc mntr d ev cleared fda spec home use Darnell Orasanu Work Phone: Start: 06-09-2019 Gluc bld gluc mntr d ev cleared fda spec home use Darnell Orasanu Work Phone: Start: 06-09-2019 Gluc bld gluc mntr d ev cleared fda spec home use Darnell Orasanu Work Phone: Start: 06-02-2019 Blood count hemoglobin Vivian Chacon Work Phone: Start: 06-02-2019 Blood typing serolog ic abo Vivian Chacon Work Phone: Start: 06-02-2019 Comprehensive metabo lic panel Vivian Chacon Work Phone: Start: 06-02-2019 Hemoglobin glycosyla talon a1c Vivian Chacon Work Phone: Start: 06-02-2019 Ecg routine ecg w/le ast 12 lds w/i&r Vivian Chacon Work Phone: Start: 02-04-2019 Hepatic function panel Jaylin Hutson Start: 02-04-2019 Urnls dip stick/tabl et rgnt auto w/o microscopy Jaylin Hutson Start: 12-15-2018 MRI Brain with Contrast Jaylin Hutson Bacteria identified in Blood by Culture Dr. Aries Hill Work Phone: Colonoscopy Aries rollins Work Phone: Comment on above: 2016; History of Ankle Surgery Pedro Luis Hutson History of Knee Surgery Cherelle Hutson Comment on above: 01/20/18; History of tonsillectomy Hx of tonsillect andrei Dr. Antonio Brooks Work Phone: Tonsillectomy Jaylin Hutson Urine culture Dr. Aries Hill Work Phone: Plan of Treatment Date Care Activity Detail Author Start: 10-28-2034 Screening for malignant neoplasm of colon Colonoscopy [facility] Start: 03-08-2031 Screening for malignant neoplasm of colon [facility] Start: 07-23-2026 Glaucoma screening Diabetes: Retinopathy Screening [facility] Start: 03-30-2026 Screening for malignant neoplasm of breast Mammogram [facility] Start: 03-26-2026 Medicare Annual Wellness (AWV) Medicare Annual Wellness (AWV) [facility] Start: 02-25-2026 Medicare Annual Wellness Visit Medicare Annual Wellness Visit (AWV) [facility] Start: 01-28-2026 Hemoglobin A1c measurement Diabetes: Hemoglobin A1C Maritza keller Start: 01-28-2026 Lipid panel Lipid Panel [facility] Start: 01-28-2026 Thyroid stimulating hormone measurement TSH Level [facility] Start: 01-28-2026 Urine screening for protein Diabetes: Urine Protein Screening [facility] Start: 01-26-2026 End: 01-26-2026 Patient encounter procedure 01/26/2026 11:30 AM EDT [facility] [address] [place] [phone] Cat Richardson MD [address] [place] [address] [phone] [facility] Start: 11-03-2025 End: 11-03-2025 Patient encounter procedure 11/03/2025 11:30 AM EST [facility] [address] [place] [phone] Cat Richardson MD [address] [place] [address] [phone] [facility] Start: 09-01-2025 End: 09-01-2025 Patient encounter procedure 09/01/2025 10:30 AM EST Office Visit [facility] [address] [place] [phone] Tess Ontiveros DO [address] [facility], [address] [place] [phone] [facility] Start: 08-17-2025 Thyroid stimulating hormone measurement TSH Level [facility] Start: 08-17-2025 End: 08-17-2025 Patient encounter procedure [facility] Start: 08-06-2025 End: 08-06-2025 Patient encounter procedure 08/06/2025 11:15 AM EST Office Visit [facility] [address] [facility] [address] [place] [phone] Cat Richardson MD [address] [place] [address] [phone] [facility] Start: 07-23-2025 Glaucoma screening Diabetes: Retinopathy Screening [facility] Start: 06-08-2025 Thyroid stimulating hormone measurement TSH Level [facility] Start: 05-25-2025 End: 05-25-2025 Patient encounter procedure 05/25/2025 9:15 AM EDT Office Visit [facility] 2 [address] [facility] 2 [address] [place] [phone] Ji Galo MD [address] [facility] [address] [place], [place] [phone] [facility] 2 Start: 05-24-2025 Influenza vaccination Influenza Vaccine (#1) [facility] Start: 05-18-2025 End: 05-18-2025 Patient encounter procedure 05/18/2025 10:15 AM EDT Office Visit [facility] [address] [facility] [address] [place] [phone] Cat Richardson MD [address] [place] [address] [phone] [facility] Start: 05-14-2025 End: 05-14-2025 Patient encounter procedure 05/14/2025 9:30 AM EDT Office Visit [facility] [address] [place] [phone] Jodi Awan MD PhD [address], [address] [place], [place] [phone] [facility] Start: 05-11-2025 End: 05-11-2025 Patient encounter procedure 05/11/2025 9:15 AM EDT Office Visit [facility] 2 [address] [facility] 2 [address] [place] [phone] Ji Galo MD [address] [facility] [address] [place] [address] [facility] 2 Start: 04-30-2025 Hemoglobin A1c measurement Diabetes: Hemoglobin A1C [facility] Start: 04-23-2025 End: 04-23-2025 Telemedicine consultation with patient 04/23/2025 9:30 AM EDT Telemedicine [facility] [address] [place] [phone] Cynthia Booth, PharmD [address] [place] [address] [facility] Start: 04-02-2025 End: 04-02-2025 Telemedicine consultation with patient 04/02/2025 1:00 PM EDT Telemedicine [place] [id number] [facility] [address] [place] [phone] Cynthia Booth, PharmD [address] [place] [address] [facility] Start: 03-30-2025 End: 03-30-2025 Patient encounter procedure 03/30/2025 10:00 AM EDT Appointment [facility] [address] [place] [phone] [facility] Start: 03-26-2025 Medicare Annual Wellness (AWV) Medicare Annual Wellness (AWV) [facility] Start: 03-24-2025 Screening for malignant neoplasm of breast Mammogram [facility] Start: 03-16-2025 End: 11-16-2025 Comprehensive metabolic 2000 panel - Serum or Plasma Comprehensive Metabolic Panel Lab Routine Type 2 diabetes mellitus with hyperglycemia, with long-term current use of insulin Expected: 03/16/2025, Expires: 11/16/2025 [facility] Work Phone: Comment on above: Expected: 03/16/2025, Expires: Start: 03-16-2025 End: 11-16-2025 Hemoglobin A1c/Hemoglobin.total in Blood Hemoglobin A1C Lab Routine Type 2 diabetes mellitus with hyperglycemia, with long-term current use of insulin Expected: 03/16/2025, Expires: 11/16/2025 [facility] Work Phone: Comment on above: Expected: 03/16/2025, Expires: Start: 03-16-2025 End: 11-16-2025 Lipid 1996 panel - Serum or Plasma Lipid Panel Lab Routine Type 2 diabetes mellitus with hyperglycemia, with long-term current use of insulin Expected: 03/16/2025, Expires: 11/16/2025 [facility] Work Phone: Comment on above: Expected: 03/16/2025, Expires: Start: 03-16-2025 End: 11-16-2025 Microalbumin/Creatinine [Mass Ratio] in Urine Albumin-Creatinine Ratio, Urine Random Lab Routine Type 2 diabetes mellitus with hyperglycemia, with long-term current use of insulin Expected: 03/16/2025, Expires: 11/16/2025 [facility] Service Area Work Phone: Comment on above: Expected: 03/16/2025, Expires: Start: 03-16-2025 End: 11-16-2025 TSH with reflex to Free T4 if abnormal TSH with reflex to Free T4 if abnormal Lab Routine Alexis's thyroiditis Expected: 03/16/2025, Expires: 11/16/2025 [facility] Work Phone: Comment on above: Expected: 03/16/2025, Expires: Start: 03-01-2025 End: 03-01-2025 Patient encounter procedure 03/01/2025 9:30 AM EDT Office Visit [facility] [address] [place] [phone] Tess Ontiveros DO [address] [facility], [address] [place] [phone] [facility] Start: 02-25-2025 Medicare Annual Wellness Visit Medicare Annual Wellness Visit (AWV) [facility] Start: 02-24-2025 End: 04-26-2026 DBT Breast - bilateral BI mammo bilateral screening tomosynthesis Imaging Routine Screening mammogram for breast cancer Expected: 02/24/2025, Expires: 04/26/2026 [facility] Service Area Work Phone: Comment on above: Expected: 02/24/2025, Expires: Start: 02-24-2025 Hemoglobin A1c measurement Diabetes: Hemoglobin A1C [facility] Start: 02-24-2025 Thyroid stimulating hormone measurement TSH Level [facility] Start: 02-24-2025 End: 02-24-2025 Patient encounter procedure 02/24/2025 10:30 AM EDT Office Visit [facility] [address] [place] [phone] Tess Ontiveros DO [address] [facility], [address] [place] [phone] [facility] Start: 02-23-2025 Diabetic foot examination Diabetes: Foot Exam [facility] Start: 02-17-2025 End: 02-17-2025 Patient encounter procedure 02/17/2025 1:30 PM EDT Office Visit [facility] [place] [address] [place] [phone] Darnell Tan MD [address] [facility], [address] [place] [address] [facility] Start: 02-16-2025 End: 02-16-2025 Patient encounter procedure 02/16/2025 9:00 AM EDT Office Visit [facility] [address] [place] [phone] Cat Richardson MD [address] [place] [phone] [facility] Start: 02-13-2025 Hemoglobin A1c measurement Diabetes: Hemoglobin A1C [facility] Start: 01-19-2025 End: 07-21-2025 CBC panel - Blood by Automated count CBC Lab Routine Tachycardia SVT (supraventricular tachycardia) ([facility]) Anemia, unspecified type Expected: 01/19/2025 (Approximate), Expires: 07/21/2025 [facility] Service Area Work Phone: Comment on above: Expected: 01/19/2025 (Approximate), Expi res: 07/21/2025 Start: 01-19-2025 End: 07-21-2025 Ferritin [Mass/volume] in Serum or Plasma Ferritin Lab Routine Tachycardia SVT (supraventricular tachycardia) (CMS-HCC) Anemia, unspecified type Expected: 01/19/2025 (Approximate), Expires: 07/21/2025 [facility] Work Phone: Comment on above: Expected: 01/19/2025 (Approximate), Expi res: 07/21/2025 Start: 01-19-2025 End: 07-21-2025 Iron and Iron binding capacity panel - Serum or Plasma Iron and TIBC Lab Routine Tachycardia SVT (supraventricular tachycardia) ([facility]) Anemia, unspecified type Expected: 01/19/2025 (Approximate), Expires: 07/21/2025 [facility] Work Phone: Comment on above: Expected: 01/19/2025 (Approximate), Expi res: 07/21/2025 Start: 01-19-2025 End: 01-19-2025 Patient encounter procedure 01/19/2025 11:30 AM EDT Office Visit [facility] [address] [facility] [address] [place] [phone] Jodi Awan MD PhD [address] [facility], [address] [place], [place] [phone] [facility] Start: 01-05-2025 End: 01-05-2025 Patient encounter procedure 01/05/2025 10:45 AM EDT Office Visit [facility] 2 [address] [facility] [address] [place] [phone] Ji Galo MD [address] [facility] [address] [place], [place] [phone] [facility] 2 Start: 12-25-2024 End: 12-25-2024 Clinical Support 12/25/2024 1:00 PM EDT Clinical Support [facility] [address] [place] [phone] Cynthia Booth, PharmD [address] [place] [address] [facility] Start: 12-23-2024 [facility] Start: 12-11-2024 End: 12-11-2024 Clinical Support 12/11/2024 8:30 AM EDT Clinical Support [facility] [address] [place] [phone] Cynthia Booth, PharmD [address] [place] [address] [facility] Start: 12-09-2024 End: 12-09-2024 Patient encounter procedure 12/09/2024 9:00 AM EDT Office Visit [facility] [address] [facility] [address] [place] [phone] Radha Calderón, ARASELI-CORPORATE SECURITY OFFICER [address] [place] [address] [facility] Start: 12-08-2024 End: 12-08-2024 Telemedicine consultation with patient 12/08/2024 8:40 AM EDT Telemedicine [facility] [address] [place] [phone] Cynthia Booth, PharmD [address] [place] [address] [facility] Start: 12-03-2024 End: 12-03-2024 Patient encounter procedure 12/03/2024 10:00 AM EDT Office Visit [facility] [address] [place] [phone] Tess Ontiveros DO [address] [facility], [address] [place] [address] [facility] Start: 11-28-2024 Patient discharge [facility] Start: 11-27-2024 End: 11-28-2024 [facility] Start: 11-27-2024 Care planning and problem solving actions [facility] Start: 11-26-2024 Following clinical pathway protocol [facility] Start: 11-26-2024 Cardiac monitoring [facility] Start: 11-26-2024 Cardiac rehabilitation - phase 1 [facility] Start: 11-26-2024 Cardiac rehabilitation - phase 2 [facility] Start: 11-26-2024 Patient discharge [facility] Start: 11-26-2024 Taking patient vital signs [facility] Start: 11-26-2024 Vascular disease risk assessment [facility] Start: 11-26-2024 End: 11-26-2024 [facility] Start: 11-26-2024 Oxygen therapy [facility] Start: 11-26-2024 Assessment of risk of venous thromboembolism [facility] Start: 11-26-2024 Care regimes management [facility] Start: 11-26-2024 Continuous pulse oximetry [facility] Start: 11-26-2024 Insertion of catheter into peripheral vein [facility] Start: 11-26-2024 Measuring intake and output [facility] Start: 11-26-2024 End: 11-26-2024 Notification of physician [facility] Start: 11-26-2024 Patient referral to dietitian [facility] Start: 11-26-2024 Providing care according to standard [facility] Start: 11-26-2024 Referral to occupational therapist [facility] Start: 11-26-2024 Referral to service [facility] Start: 11-26-2024 Vital signs measurements [facility] Start: 11-26-2024 Admission procedure [facility] Start: 11-26-2024 End: 11-26-2024 Ambulation without limitation [facility] Start: 11-26-2024 Bedrest [facility] Start: 11-26-2024 Referral to assistant infant toddler teacher [facility] Start: 11-26-2024 Patient referral [facility] Work Phone: Start: 11-26-2024 Hospital admission, emergency, from emergency room, medical nature [facility] Start: 11-26-2024 Catheterization of left heart [facility] Start: 11-26-2024 End: 11-26-2024 [facility] Start: 11-24-2024 End: 11-24-2024 Telemedicine consultation with patient 11/24/2024 8:40 AM EST Telemedicine [facility] [address] [place] [phone] Cynthia Booth, PharmD [address] [place] [address] [facility] Start: 11-19-2024 End: 11-19-2024 Patient encounter procedure 11/19/2024 1:30 PM EST Appointment [facility] [address] [place] [phone] [facility] Start: 11-17-2024 Hemoglobin A1c measurement Diabetes: Hemoglobin A1C [facility] Start: 11-16-2024 End: 11-16-2024 Patient encounter procedure [facility] Start: 10-30-2024 End: 10-30-2025 CBC panel - Blood by Automated count CBC Lab Routine Epigastric pain Periumbilical pain Expected: 10/30/2024 (Approximate), Expires: 10/30/2025 [facility] Service Area Work Phone: Comment on above: Expected: 10/30/2024 (Approximate), Expi res: 10/30/2025 Start: 10-30-2024 End: 10-30-2025 Comprehensive metabolic 2000 panel - Serum or Plasma Comprehensive Metabolic Panel Lab Routine Epigastric pain Periumbilical pain Expected: 10/30/2024 (Approximate), Expires: 10/30/2025 [facility] [facility] Work Phone: Comment on above: Expected: 10/30/2024 (Approximate), Expi res: 10/30/2025 Start: 10-30-2024 End: 10-30-2025 CT Abdomen and Pelvis W contrast IV CT abdomen pelvis w IV and oral contrast Imaging Routine Epigastric pain Periumbilical pain Expected: 10/30/2024, Expires: 10/30/2025 [facility] Work Phone: Comment on above: Expected: 10/30/2024, Expires: Start: 10-30-2024 End: 10-30-2025 Lipase [Enzymatic activity/volume] in Serum or Plasma Lipase Lab Routine Epigastric pain Periumbilical pain Expected: 10/30/2024 (Approximate), Expires: 10/30/2025 [facility] Work Phone: Comment on above: Expected: 10/30/2024 (Approximate), Expi res: 10/30/2025 Start: 10-30-2024 End: 10-30-2024 Patient encounter procedure 10/30/2024 8:45 AM EST Office Visit [facility] 2 [address] [facility] 2 [facility] [address] [place] [phone] Silas Stern MD 6[address] [facility] [address] [place] [address] [facility] 2 Start: 10-23-2024 Glaucoma screening Diabetes: Retinopathy Screening [facility] Start: 10-21-2024 Diabetes: Urine Albumin-Creatinine Ratio for Kidney Health Diabetes: Urine Albumin-Creatinine Ratio for Kidney Health [facility] Start: 10-21-2024 Diabetic foot examination Diabetes: Foot Exam [facility] Start: 10-21-2024 Hemoglobin A1c measurement Diabetes: Hemoglobin A1C [facility] Start: 10-21-2024 Lipid panel Lipid Panel [facility] Start: 10-21-2024 Thyroid stimulating hormone measurement TSH Level [facility] Start: 10-21-2024 Urine screening for protein Diabetes: Urine Protein Screening [facility] Start: 10-20-2024 End: 04-19-2026 Colonoscopy study Colonoscopy Screening; High Risk Patient Endoscopy Routine Adenomatous polyp of colon, unspecified part of colon Expected: 10/20/2024, Expires: 04/19/2026 [facility] Service Area Work Phone: Comment on above: Expected: 10/20/2024, Expires: Start: 10-20-2024 End: 04-19-2026 Esophagogastroduodenoscopy Esophagogastroduodenoscopy (EGD) Endoscopy Routine Epigastric pain Expected: 10/20/2024, Expires: 04/19/2026 [facility] Work Phone: Comment on above: Expected: 10/20/2024, Expires: Start: 10-20-2024 End: 10-20-2024 Patient encounter procedure 10/20/2024 10:00 AM EST Office Visit [facility] 2 [address] [facility] [address] [place] [address] Ji Galo MD [address] [facility] [address] [place] [address] [facility] 2 Start: 10-06-2024 End: 10-06-2024 Patient encounter procedure 10/06/2024 1:00 PM EST Office Visit [facility] 2 [facility] [facility] [address] [place] [address] Ji Galo MD [address] [facility] [address] [place] [address] [facility] 2 Start: 09-11-2024 Screening for osteoporosis Bone Density Scan [facility] Start: 09-09-2024 End: 09-09-2024 Patient encounter procedure 09/09/2024 11:45 AM EST Office Visit [facility] 3 [address] [facility] 3 [address] [place] [phone] Jodi Awan MD PhD [address] [employer] [facility] 3, [address] [place] [address] [facility] 3 Start: 08-31-2024 End: 08-31-2024 Patient encounter procedure 08/31/2024 9:30 AM EST Office Visit [facility] [address] [place] [phone] Tess Ontiveros DO [address] [facility], [address] [place], [place] [phone] [facility] Start: 08-17-2024 End: 08-17-2024 Patient encounter procedure 08/17/2024 10:15 AM EST [facility] [address] [place] [phone] Cat Richardson MD [address] [place], [place] [phone] [facility] Start: 08-12-2024 End: 08-12-2024 Patient encounter procedure 08/12/2024 1:00 PM EST Office Visit [facility] [address] [place] [phone] [place] [address] [facility] Department of Orthopedics [place], [place] [phone] [facility] Start: 07-29-2024 Thyroid Cancer Ultrasound Thyroid Cancer Ultrasound [facility] Start: 07-21-2024 End: 07-21-2024 Patient encounter procedure 07/21/2024 2:30 PM EDT Office Visit [facility] [address] [facility] [address] [place] [address] Jodi Awan MD PhD [address] [facility] 3, [address] [place], [place] [phone] [facility] Start: 07-20-2024 Diabetes: Estimated Glomerular Filtration Rate for Kidney Health Diabetes: Estimated Glomerular Filtration Rate for Kidney Health [facility] Start: 06-02-2024 End: 06-02-2024 Patient encounter procedure 06/02/2024 9:[address] [facility] [address] [place] [phone] [facility] Start: 05-27-2024 End: 05-27-2025 25-hydroxyvitamin D3 [Mass/volume] in Serum or Plasma Vitamin D 25-Hydroxy,Total (for eval of Vitamin D levels) Lab Routine Vitamin D deficiency Expected: 05/27/2024 (Approximate), Expires: 05/27/2025 [facility] Work Phone: Comment on above: Expected: 05/27/2024 (Approximate), Expi res: 05/27/2025 Start: 05-27-2024 End: 06-03-2024 Bacteria identified in Urine by Culture Urine Culture Microbiology Routine Recurrent UTI Expected: 05/27/2024 (Approximate), Expires: 06/03/2024 [facility] Work Phone: Comment on above: Expected: 05/27/2024 (Approximate), Expi res: 06/03/2024 Start: 05-27-2024 End: 05-27-2025 CBC W Auto Differential panel - Blood CBC and Auto Differential Lab Routine Fatigue, unspecified type Expected: 05/27/2024 (Approximate), Expires: 05/27/2025 [facility] Work Phone: Comment on above: Expected: 05/27/2024 (Approximate), Expi res: 05/27/2025 Start: 05-27-2024 End: 05-27-2025 Cobalamin (Vitamin B12) [Mass/volume] in Serum or Plasma Vitamin B12 Lab Routine Fatigue, unspecified type Expected: 05/27/2024 (Approximate), Expires: 05/27/2025 [facility] Work Phone: Comment on above: Expected: 05/27/2024 (Approximate), Expi res: 05/27/2025 Start: 05-27-2024 End: 05-27-2025 Comprehensive metabolic 2000 panel - Serum or Plasma Comprehensive Metabolic Panel Lab Routine Fatigue, unspecified type Expected: 05/27/2024 (Approximate), Expires: 05/27/2025 [facility] Work Phone: Comment on above: Expected: 05/27/2024 (Approximate), Expi res: 05/27/2025 Start: 05-27-2024 Hemoglobin A1c measurement Diabetes: Hemoglobin A1C [facility] Start: 05-27-2024 End: 05-27-2025 Holter monitor study Holter or Event 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 Routine Tachycardia Expected: 05/27/2024, Expires: 05/27/2025 [facility] Service Area Work Phone: Comment on above: Expected: 05/27/2024, Expires: Start: 05-27-2024 End: 05-27-2025 TSH with reflex to Free T4 if abnormal TSH with reflex to Free T4 if abnormal Lab Routine Alexis's thyroiditis Expected: 05/27/2024 (Approximate), Expires: 05/27/2025 [facility] Work Phone: Comment on above: Expected: 05/27/2024 (Approximate), Expi res: 05/27/2025 Start: 05-27-2024 End: 05-27-2025 Urinalysis complete panel - Urine Urinalysis with Reflex Microscopic Lab Routine Recurrent UTI Expected: 05/27/2024 (Approximate), Expires: 05/27/2025 [facility] Work Phone: Comment on above: Expected: 05/27/2024 (Approximate), Expi res: 05/27/2025 Start: 05-27-2024 End: 05-27-2024 Patient encounter procedure 05/27/2024 10:00 AM EDT Office Visit [facility] [address] [place] [address] Tess Ontiveros DO [address] [facility], [address] [place], [place] [phone] [facility] Start: 05-24-2024 COVID-19 Vaccine ( season) COVID-19 Vaccine ( season) [facility] Start: 05-24-2024 COVID-19 Vaccine ( season) COVID-19 Vaccine ( season) [facility] Start: 05-24-2024 Influenza vaccination [facility] Start: 05-18-2024 End: 05-18-2025 Bacteria identified in Urine by Culture [facility] Area Work Phone: Comment on above: Expected: 05/18/2024 (Approximate), Expi res: 05/18/2025 Start: 05-18-2024 End: 05-18-2024 Patient encounter procedure 05/18/2024 9:00 AM EDT Office Visit [facility] [address] [place] [address] Cat Richardson MD [address] [place] [id number] [facility] Start: 05-13-2024 End: 05-13-2025 Urinalysis complete panel - Urine Urinalysis with Reflex Microscopic Lab Routine Burning with urination Expected: 05/13/2024 (Approximate), Expires: 05/13/2025 [facility] Work Phone: Comment on above: Expected: 05/13/2024 (Approximate), Expi res: 05/13/2025 Start: 05-13-2024 End: 05-13-2024 Patient encounter procedure 05/13/2024 1:00 PM EDT Office Visit [facility] [address] [place] [phone] Yanelis Ayala PA-C [address] [place] [address] [facility] Start: 05-11-2024 End: 05-11-2025 CBC panel - Blood by Automated count CBC Lab Routine Leukocytosis, unspecified type Expected: 05/11/2024 (Approximate), Expires: 05/11/2025 [facility] Work Phone: Comment on above: Expected: 05/11/2024 (Approximate), Expi res: 05/11/2025 Start: 05-11-2024 End: 05-11-2024 Patient encounter procedure 05/11/2024 10:30 AM EDT Office Visit [facility] [address] [place] [phone] Dean Nick MD [address] [facility], [address] [place], [place] [phone] [facility] Start: 05-08-2024 End: 05-08-2025 Ferritin [Mass/volume] in Serum or Plasma [facility] Work Phone: Comment on above: Expected: 05/08/2024 (Approximate), Expi res: 05/08/2025 Start: 05-08-2024 End: 05-08-2025 Iron and Iron binding capacity panel - Serum or Plasma [facility] Service Area Work Phone: Comment on above: Expected: 05/08/2024 (Approximate), Expi res: 05/08/2025 Start: 05-08-2024 FUV, Provider: Jodi Awan, Status: Pen, Time: 9:45 AM FUV, Provider: Jodi Awan, Status: Pen, Time: 9:45 AM [id number]-[id number] [address] [place] Work Phone: Start: 05-08-2024 End: 05-08-2024 Patient encounter procedure 05/08/2024 9:45 AM EDT Office Visit [facility] [address] [facility] [address] [place] [address] Jodi Awan MD PhD [address] [facility] 3, [address] [place] [address] [facility] Start: 04-29-2024 End: 04-29-2024 Patient encounter procedure 04/29/2024 10:00 AM EDT Office Visit [facility] [address] [place] [address] Yanelis Ayala, PAEdgardC [address] [place] [address] [facility] Start: 04-10-2024 End: 04-10-2024 Admission to same day surgery center [facility] [place] Comment on above: L3-4 laminectomy Revision [45215 (CPT )] L3-L4 Lumbar Laminec nyasia Revision [67275 (CPT )] Start: 04-10-2024 End: 04-10-2024 Moore facetectomy & foramotomy 1 segment lumbar [facility] Start: 04-10-2024 Subsequent hospital visit by physician [facility] [place] Start: 04-10-2024 End: 04-10-2024 Moore facetectomy & foramotomy 1 segment lumbar Laminectomy Lumbar Lumbar radiculopathy 04/10/2024 7:30 AM EDT [facility] Start: 04-03-2024 End: 04-03-2024 Admission to establishment 04/03/2024 8:45 AM EDT Pre-Admission Testing [facility] [address] [place] [address] Macarena Tidwell PA-C [address] [place] [address] [facility] Start: 03-27-2024 End: 03-27-2024 Clinical Support 03/27/2024 1:30 PM EDT Clinical Support [facility] [address] [place] [phone] [facility] Start: 03-24-2024 End: 03-24-2024 Patient encounter procedure 03/24/2024 11:30 AM EDT Appointment [facility] [address] [place] [phone] [facility] Start: 03-20-2024 Lipid panel Lipid Panel [facility] Start: 02-25-2024 End: 04-26-2025 DBT Breast - bilateral BI mammo bilateral screening tomosynthesis Imaging Routine Screening mammogram for breast cancer Expected: 02/25/2024, Expires: 04/26/2025 [facility] Service Area Work Phone: Comment on above: Expected: 02/25/2024, Expires: Start: 02-25-2024 End: 02-25-2024 Patient encounter procedure 02/25/2024 10:00 AM EDT Office Visit [facility] [address] [place] [address] Tess Ontiveros DO [address] [facility], [address] [place] [address] [facility] Start: 02-24-2024 End: 02-24-2024 Patient encounter procedure 02/24/2024 9:00 AM EDT Office Visit [facility] [address] [place] [phone] Cat Richardson MD [address] [place] [phone] [facility] Start: 02-19-2024 End: 02-19-2024 Patient encounter procedure 02/19/2024 9:30 AM EDT Office Visit [facility] [address] [place] [address] Tess Ontiveros DO [address] [facility], [address] [place], [place] [phone] [facility] Start: 02-12-2024 End: 02-11-2025 Basic metabolic 2000 panel - Serum or Plasma Basic Metabolic Panel Lab Routine Lumbar radiculopathy Expected: 02/12/2024 (Approximate), Expires: 02/11/2025 [facility] Work Phone: Comment on above: Expected: 02/12/2024 (Approximate), Expi res: 02/11/2025 Start: 02-12-2024 End: 02-11-2025 Blood type and Indirect antibody screen panel - Blood Type And Screen Lab Routine Lumbar radiculopathy Expected: 02/12/2024 (Approximate), Expires: 02/11/2025 [facility] Work Phone: Comment on above: Expected: 02/12/2024 (Approximate), Expi res: 02/11/2025 Start: 02-12-2024 End: 02-11-2025 CBC W Auto Differential panel - Blood CBC and Auto Differential Lab Routine Lumbar radiculopathy Expected: 02/12/2024 (Approximate), Expires: 02/11/2025 [facility] Work Phone: Comment on above: Expected: 02/12/2024 (Approximate), Expi res: 02/11/2025 Start: 02-12-2024 End: 02-11-2025 ECG 12 lead ECG 12 lead ECG Routine Lumbar radiculopathy Expected: 02/12/2024 (Approximate), Expires: 02/11/2025 [facility] Work Phone: Comment on above: Expected: 02/12/2024 (Approximate), Expi res: 02/11/2025 Start: 02-12-2024 End: 02-19-2024 Methicillin resistant Staphylococcus aureus [Presence] in Nose by Organism specific culture Staphylococcus aureus/MRSA colonization, Culture Microbiology Routine Lumbar radiculopathy Expected: 02/12/2024 (Approximate), Expires: 02/19/2024 [facility] Work Phone: Comment on above: Expected: 02/12/2024 (Approximate), Expi res: 02/19/2024 Start: 02-12-2024 End: 02-11-2025 PT and aPTT panel - Platelet poor plasma by Coagulation assay Coagulation Screen Lab Routine Lumbar radiculopathy Abnormal coagulation profile Expected: 02/12/2024 (Approximate), Expires: 02/11/2025 [facility] Work Phone: Comment on above: Expected: 02/12/2024 (Approximate), Expi res: 02/11/2025 Start: 02-12-2024 End: 02-11-2025 Request for Pre-Admission Testing Visit Request for Pre-Admission Testing Visit Procedures Routine Lumbar radiculopathy Expected: 02/12/2024 (Approximate), Expires: 02/11/2025 [facility] Service Area Work Phone: Comment on above: Expected: 02/12/2024 (Approximate), Expi res: 02/11/2025 Start: 01-20-2024 Hemoglobin A1c measurement Diabetes: Hemoglobin A1C [facility] Start: 12-26-2023 Screening for malignant neoplasm of breast Mammogram [facility] Start: 10-21-2023 End: 10-21-2023 Patient encounter procedure 10/21/2023 9:15 AM EST Office Visit [facility] [address] [place] [address] Cat Richardson MD [address] [place] [id number] [facility] Start: 10-08-2023 NPV, Provider: Cat Richardson, Status: Pen, Time: 12:00 PM NPV, Provider: Cat Richardson, Status: Pen, Time: 12:00 PM [facility] Work Phone: Start: 08-28-2023 End: 08-28-2023 Patient encounter procedure 08/28/2023 10:00 AM EST Consult [facility] [address] [facility] [address] [place] [address] Soumya Hussein MD [address] [facility], [facility] [address] [place] [address] [facility] Start: 08-21-2023 End: 08-28-2023 Bacteria identified in Urine by Culture Urine Culture Microbiology Routine Recurrent UTI Expected: 08/21/2023 (Approximate), Expires: 08/28/2023 [facility] Work Phone: Comment on above: Expected: 08/21/2023 (Approximate), Expi res: 08/28/2023 Start: 08-21-2023 End: 08-21-2024 Comprehensive metabolic 2000 panel - Serum or Plasma Comprehensive metabolic panel Lab Routine Elevated AST (SGOT) Expected: 08/21/2023 (Approximate), Expires: 08/21/2024 [facility] Service Area Work Phone: Comment on above: Expected: 08/21/2023 (Approximate), Expi res: 08/21/2024 Start: 08-21-2023 End: 08-21-2024 Urinalysis complete panel - Urine Urinalysis with Reflex Microscopic Lab Routine Recurrent UTI Expected: 08/21/2023 (Approximate), Expires: 08/21/2024 [facility] Work Phone: Comment on above: Expected: 08/21/2023 (Approximate), Expi res: 08/21/2024 Start: 08-21-2023 End: 08-21-2023 Patient encounter procedure 08/21/2023 10:00 AM EST Office Visit [facility] [address] [place] [address] Tess Ontiveros DO [address] [facility], [address] [place] [address] [facility] Start: 05-24-2023 COVID-19 Vaccine ( season) COVID-19 Vaccine ( season) [facility] Start: 05-24-2023 Influenza vaccination Influenza Vaccine (#1) [facility] Start: 05-17-2023 FUV, Provider: Jodi Awan, Status: Pen, Time: 3:30 PM FUV, Provider: Jodi Awan, Status: Pen, Time: 3:30 PM [id number] na [address] [place] Work Phone: Start: 05-17-2023 FUV, Provider: Jodi Awan, Status: Pen, Time: 11:30 AM FUV, Provider: Jodi Awan, Status: Pen, Time: 11:30 AM [id number]-Uluj a Work Phone: Start: 04-10-2023 DTaP/Tdap/Td vaccine (2 - Td or Tdap) DTaP/Tdap/Td vaccine (2 - Td or Tdap) [facility] Work Phone: Start: 04-10-2023 DTaP/Tdap/Td vaccine (2 - Td) DTaP/Tdap/Td vaccine (2 - Td) [place] Start: 04-10-2023 DTaP/Tdap/Td Vaccines (2 - Td or Tdap) DTaP/Tdap/Td Vaccines (2 - Td or Tdap) [facility] Start: 04-04-2023 ECHO, Provider: DURHAM HHVI,MG CARD, Status: Pen, Time: 10:00 AM ECHO, Provider: DURHAM HHVI,MG CARD, Status: Pen, Time: 10:00 AM CK-[id number]-Qxie na [address] [place] Work Phone: Start: 03-08-2023 Screening for malignant neoplasm of colon Colon cancer screen colonoscopy [facility] Work Phone: Start: 01-11-2023 Blood culture [facility] Start: 11-02-2022 Hemoglobin A1c measurement Diabetes: Hemoglobin A1C [facility] Start: 10-02-2022 Pneumococcal vaccination Pneumococcal Vaccine (3 of 3 - PCV20 or PCV21) [facility] Start: 10-02-2022 Pneumococcal Vaccine: 50+ Years (3 of 3 - PCV20 or PCV21) Pneumococcal Vaccine: 50+ Years (3 of 3 - PCV20 or PCV21) [facility] Start: 08-20-2022 Patient encounter procedure [facility] Start: 08-14-2022 Patient discharge [facility] Work Phone: Start: 08-13-2022 [facility] Work Phone: Start: 08-11-2022 [facility] Work Phone: Start: 08-10-2022 Oxygen therapy [facility] Work Phone: Start: 08-09-2022 [facility] Work Phone: Start: 08-09-2022 Application of intermittent pneumatic compression device [facility] Work Phone: Start: 08-09-2022 End: 08-09-2022 [facility] Work Phone: Start: 08-08-2022 Introduction of urinary catheter [facility] Work Phone: Start: 08-06-2022 Application of intermittent pneumatic compression device [facility] Work Phone: Start: 08-06-2022 [facility] Work Phone: Start: 08-05-2022 [facility] Work Phone: Start: 08-03-2022 Wound care [facility] Work Phone: Start: 08-03-2022 End: 08-03-2022 [facility] Work Phone: Start: 08-03-2022 Notification of physician [facility] Work Phone: Start: 08-03-2022 Referral to service [facility] Work Phone: Start: 08-03-2022 Urinary bladder training [facility] Work Phone: Start: 08-03-2022 Admission procedure [facility] Work Phone: Start: 08-03-2022 Patient referral to dietitian [facility] Work Phone: Start: 08-03-2022 Referral to occupational therapist [facility] Work Phone: Start: 08-03-2022 Vital signs measurements [facility] Work Phone: Start: 08-03-2022 Care regimes management [facility] Work Phone: Start: 07-31-2022 End: 08-01-2023 [facility] Comment on above: For patients less than 70 years old. IF patient HAS a sec ure IV access & is Unconscious, Conscious, NPO or Unable to Eat or Drink. Repeat until BG reaches 100 mg/dL or greater. Push 2-3 mL/minute. Discontinue Once BG reaches 100 mg/dL or greater. IF patient DOES NOT have secure IV access & is Unconscious, Conscious, NPO or Unable to Eat or Drink. Repeat until BG reaches 100 mg/dL or greater. Discontinue Once BG reaches 100 mg/dL or greater. Start: 07-09-2022 POV, Provider: Zena Pablo, Status: Pen, Time: 9:30 AM POV, Provider: Zena Pablo, Status: Pen, Time: 9:30 AM [facility] Work Phone: Start: 06-12-2022 [facility], Provider: Zena Pablo, Status: Pen, Time: 7:30 AM [facility], Provider: Zena Pablo, Status: Pen, Time: 7:30 AM [facility] Work Phone: Start: 05-07-2022 FUV, Provider: Zena Pablo, Status: Pen, Time: 9:00 AM FUV, Provider: Zena Pablo, Status: Pen, Time: 9:00 AM VR-Wcpujxdtqvzi-Uv maycol Work Phone: Start: 04-14-2022 Blood chemistry [facility] Work Phone: Start: 04-13-2022 Blood chemistry [facility] Work Phone: Start: 04-12-2022 Blood chemistry [facility] Work Phone: Start: 04-11-2022 [facility] Work Phone: Start: 04-11-2022 Patient discharge [facility] Work Phone: Start: 04-11-2022 [facility] Work Phone: Start: 04-10-2022 Following clinical pathway protocol [facility] Work Phone: Start: 04-10-2022 Assessment of risk of venous thromboembolism [facility] Work Phone: Start: 04-10-2022 Care regimes management [facility] Work Phone: Start: 04-10-2022 Fall prevention [facility] Work Phone: Start: 04-10-2022 Insertion of catheter into peripheral vein [facility] Work Phone: Start: 04-10-2022 Measuring intake and output [facility] Work Phone: Start: 04-10-2022 Oxygen therapy [facility] Work Phone: Start: 04-10-2022 Providing care according to standard [facility] Work Phone: Start: 04-10-2022 Provision of activity privileges [facility] Work Phone: Start: 04-10-2022 Referral to occupational therapist [facility] Work Phone: Start: 04-10-2022 Referral to service [facility] Work Phone: Start: 04-10-2022 [facility] Work Phone: Start: 04-10-2022 Verification routine [facility] Work Phone: Start: 04-10-2022 Admission procedure [facility] Work Phone: Start: 04-10-2022 [facility] Work Phone: Start: 07-21-2021 End: 07-21-2021 Patient encounter procedure 07/21/2021 Office Visit Urogynecology Darnell Tan MD [address] [place] [address], [address] [place] [address] [phone] [facility] Urogynecology Rm Start: 06-28-2021 End: 06-28-2021 Patient encounter procedure 06/28/2021 Office Visit Gastroenterology Cinthai Faith MD [address] [place] [address] [phone] [facility] Start: 06-12-2021 End: 06-12-2021 Patient encounter procedure 06/12/2021 Office Visit Otolaryngology Geovany Hirsch MD [address] [place] [address] [phone] [facility] Start: 05-24-2021 Influenza vaccination Flu vaccine (#1) [facility] Work Phone: Start: 05-10-2021 End: 05-10-2021 ambulatory 05/10/2021 Virtual Visit Gastroenterology Cinthia Faith MD [address] [place] [address] [phone] [facility] [place] Start: 03-12-2021 Diabetes: Estimated Glomerular Filtration Rate for Kidney Health Diabetes: Estimated Glomerular Filtration Rate for Kidney Health [facility] Start: 03-11-2021 Thyroid stimulating hormone measurement TSH testing [facility] Work Phone: Start: 03-11-2021 TSH Qn TSH testing [place] Start: 03-10-2021 Hemoglobin A1c measurement [facility] Start: 11-10-2020 Glaucoma screening Diabetes: Retinopathy Screening [facility] Start: 06-10-2020 HbA1c (Bld) [Mass fraction] A1C test (Diabetic or Prediabetic) [place] Start: 06-10-2020 Hemoglobin A1c measurement A1C test (Diabetic or Prediabetic) [facility] Work Phone: Start: 06-02-2020 A1C test (Diabetic or Prediabetic) A1C test (Diabetic or Prediabetic) [place] Start: 06-02-2020 HbA1c (Bld) [Mass fraction] A1C test (Diabetic or Prediabetic) [place] Start: 05-24-2020 Influenza vaccination [place] Start: 06-16-2019 End: 06-16-2019 Procedure visit 06/16/2019 Procedure visit Urogynecology Darnell Tan MD [address], [address] [place] [address] [phone] [facility] Urogynecology [place] Start: 06-09-2019 End: 06-09-2019 Appointment [facility] General Surgery Start: 05-24-2019 Influenza vaccination Flu vaccine (#1) [place] Start: 03-15-2019 Annual Wellness Visit (AWV) Annual Wellness Visit (AWV) [place], [place] Start: 10-02-2018 Pneumococcal Vaccine: 65+ Years (3 - PPSV23 if available, else PCV20) Pneumococcal Vaccine: 65+ Years (3 - PPSV23 if available, else PCV20) [facility] Start: 10-02-2018 Pneumococcal Vaccine: 65+ Years (3 - PPSV23 or PCV20) Pneumococcal Vaccine: 65+ Years (3 - PPSV23 or PCV20) [facility] Start: 10-02-2018 Pneumococcal Vaccine: 65+ Years (3 of 3 - PPSV23 or PCV20) Pneumococcal Vaccine: 65+ Years (3 of 3 - PPSV23 or PCV20) [facility] Start: 09-15-2018 Chest pain Chest pain Date: 15-Sep-2018 [facility] Start: 09-14-2018 Breast cancer screen Breast cancer screen [place] Start: 09-14-2018 Screening for malignant neoplasm of breast Breast cancer [place] Start: 08-08-2017 Lipid panel Lipid [place] Start: 08-08-2017 Lipid screen Lip[place] Start: 08-08-2017 TSH Qn [place]SH testing [place] Start: 08-08-2017 TSH testing [place] Start: 01-12-2017 Screening for malignant neoplasm of colon FIT [facility] Start: 11-01-2016 Pneumococcal 65+ years Vaccine (2 of 2 - PPSV23) Pneumococcal 65+ years Vaccine (2 of 2 - PPSV23) [place] Start: 02-23-2014 Shingles Vaccine (2 of 3) Shingles Vaccine (2 of 3) [place] Start: 02-23-2014 Zoster Vaccines (2 of 3) Zoster Vaccines (2 of 3) [facility] Start: 2010 Hepatitis B Vaccines (1 of 3 - Risk 3-dose series) Hepatitis B Vaccines (1 of 3 - Risk 3-dose series) [facility] Start: 2010 RSV High Risk: (Elderly (60+) or Population) (1 - Risk 60-74 years 1-dose series) RSV High Risk: (Elderly (60+) or Population) (1 - Risk 60-74 years 1-dose series) [facility] Start: 2010 RSV Immunization aged 60 or older (1 - 1-dose 60+ series) RSV Immunization aged 60 or older (1 - 1-dose 60+ series) [facility] Start: 2010 RSV Immunization for Adults (1 - Risk 60-74 years 1-dose series) RSV Immunization for Adults (1 - Risk 60-74 years 1-dose series) [facility] Start: 2010 RSV patients and/or patients aged 60+ years (1 - 1-dose 60+ series) RSV patients and/or patients aged 60+ years (1 - 1-dose 60+ series) [facility] Start: 2000 Colon cancer screen colonoscopy Colon cancer screen colonoscopy [place] Start: 2000 Screening for malignant neoplasm of colon Colon cancer screen colonoscopy [place] Start: 1990 Screening for malignant neoplasm of breast Mammogram [facility] Start: 1969 Hepatitis A Vaccines (1 of 2 - Risk 2-dose series) Hepatitis A Vaccines (1 of 2 - Risk 2-dose series) [facility] Start: 1969 Urine screening for protein Diabetes: Urine Protein Screening [facility] Start: 1968 Diabetes: Urine Albumin-Creatinine Ratio for Kidney Health Diabetes: Urine Albumin-Creatinine Ratio for Kidney Health [facility] Start: 1968 Diabetic microalbuminuria test Diabetic microalbuminuria test [place] Start: 1962 COVID-19 Vaccine (1) COVID-19 Vaccine (1) [facility] Work Phone: Start: 1962 Depression Monitoring Depression Monitoring [facility] Start: 1962 Depresssion Monitoring Depresssion Monitoring [facility] Start: 1960 [object Object] [facility] Start: 1960 Diabetic foot examination [facility] Start: 1960 Diabetic retinal exam Diabetic retinal exam [facility] Start: 1960 Glaucoma screening Diabetes: Retinopathy Screening [facility] Start: 1960 Ophthalmic examination and evaluation Diabetes: Retinopathy Screening [facility] Start: 1960 Preventive dental service Diabetes: Dental Exam [facility] Start: 03-31-1951 COVID-19 Vaccine (#1) COVID-19 Vaccine (#1) [facility] Start: 1950 Medicare Annual Wellness (AWV) Medicare Annual Wellness (AWV) [facility] Start: 1950 Medicare Annual Wellness Visit Medicare Annual Wellness Visit (AWV) [facility] Start: 1950 Screening for malignant neoplasm of colon [facility] Start: 1950 Screening for osteoporosis Bone Density Scan [facility] Start: 1950 Thyroglobulin Test Thyroglobulin Test [facility] Start: 1950 Thyroid Cancer Ultrasound Thyroid Cancer Ultrasound [facility] Start: 1950 Thyroid stimulating hormone measurement TSH Level [facility] Anion gap in Serum or Plasma [facility] Bacteria identified in Blood by Culture Blood Culture [facility] Bacteria identified in Urine by Culture Urine Culture [facility] Work Phone: Bacteria identified in Urine by Culture Urine Culture Microbiology Routine Dysuria 09/18/2023 11:36 AM EST [facility] Work Phone: Bacteria identified in Urine by Culture Urine culture Microbiology Routine Recurrent UTI Ordered: 07/15/2024 [facility] Work Phone: Comment on above: Ordered: 07/15/2024 Bacteria identified in Urine by Culture Urine Culture Microbiology Routine Acute cystitis without hematuria 12/03/2024 11:15 AM EDT [facility] Work Phone: End: 10-28-2024 Blood type and Indirect antibody screen panel - Blood Type And Screen Lab Timed As needed (Lab) until discontinued starting 10/28/2024 [facility] Work Phone: Comment on above: As needed (Lab) until discontinued start ing 10/28/2024 BUN/Creatinine ratio [facility] Calcium [Mass/volume ] in Serum or Plasma [facility] Carbon dioxide, tota l [Moles/volume] in Central venous blood [facility] Creatinine [Mass/vol ume] in Serum or Plasma [facility] End: 11-19-2024 CT Abdomen and Pelvis W contrast IV [facility] Work Phone: Comment on above: Once for 1 Occurrences starting 11/19/19 until 11/19/2024 End: 03-11-2020 Culture, Urine Culture, Urine Microbiology Add-On One Time for 1 Occurrences starting 03/11/2020 until 03/11/2020 [facility] Comment on above: One Time for 1 Occurrences starting 02/21 until 03/11/2020 Culture, Urine Culture, Urine M icrobiology STAT 03/10/2020 8:02 PM EDT [facility] End: 03-24-2024 DBT Breast - bilateral [facility] Work Phone: Comment on above: Once for 1 Occurrences starting 03/24/20 24 until 03/24/2024 End: 03-30-2025 DBT Breast - bilateral [facility] Work Phone: Comment on above: Once for 1 Occurrences starting 03/30/20 until 03/30/2025 DXA Bone [Mass/Area] Bone density [facility] Work Phone: ECG 12 lead (Clinic Performed) ECG 12 lead (Clinic Performed) ECG Routine Coronary artery disease involving nenana coronary artery of nenana heart without angina pectoris ST elevation myocardial infarction involving left anterior descending (LAD) coronary artery (Multi) SVT (supraventricular tachycardia) ([facility]) 12/17/2024 8:22 AM EDT [facility] Work Phone: EKG 12 Lead EKG 12 Lead ECG Routine 06/02/2019 4:52 PM EDT [facility] Enroll patient in sp ine lumbar NON fusion care plan Enroll patient in spine lumbar NON fusion care plan Procedures Routine Ordered: 02/12/2024 [facility] Work Phone: Comment on above: Ordered: 02/12/2024 Glucose [Mass/volume ] in Serum or Plasma [facility] End: 06-02-2024 Holter monitor study [facility] Service Area Work Phone: Comment on above: Once for 1 Occurrences starting 06/02/20 24 until 06/02/2024 Incentive spirometry Incentive s pirometry Respiratory Care Routine Every 2hr while awake until discontinued starting 06/09/2019 [facility] Comment on above: Every 2hr while awake until discontinued starting 06/09/2019 Initiate Oxygen Ther apy Protocol [facility] Comment on above: Daily until discontinued starting 2018 Daily until disconti nued starting 03/11/2020 Magnesium measurement [facility] Measurement of renal function [facility] MG Breast - bilatera l Screening [facility] OUTSIDE PROCEDURE SCAN OUTSIDE P ROCEDURE SCAN Procedures Ordered: 07/29/2023 [facility] Comment on above: Ordered: 07/29/2023 OUTSIDE PROCEDURE SCAN OUTSIDE P ROCEDURE SCAN Procedures Ordered: 05/21/2023 [facility] Comment on above: Ordered: 05/21/2023 Patient Education [facility] Work Phone: Patient referral [facility] Work Phone: POCT Glucose [facility] Villegas Comment on above: 4X Daily (AC & HS) until discontinued st arting 06/09/2019 As Needed until disc ontinued starting 06/09/2019 4X Daily (AC & HS) u ntil discontinued starting 03/11/2020 End: 03-18-2020 POCT Glucose POCT Glucose Point of Care Testing STAT Every 6 Hours (Lab) for 7 Days starting 03/11/2020 until 03/18/2020 [facility] Comment on above: Every 6 Hours (Lab) for 7 Days starting 03/11/2020 until 03/18/2020 Potassium measurement [facility] Serum chloride measurement [facility] Sodium measurement [facility] End: 06-09-2019 Surgical Pathology Surgical Pathology Lab Routine Once for 1 Occurrences starting 06/09/2019 until 06/09/2019 [facility] Comment on above: Once for 1 Occurrences starting 06/09/20 19 until 06/09/2019 Surgical Pathology Surgical Path ology Lab Routine 06/09/2019 3:30 PM EDT [facility] [place] Surgical pathology study Surgica l Pathology Exam Pathology and Cytology Timed Adenomatous polyp of colon, unspecified part of colon Epigastric pain Release Upon Ordering for 1 Occurrences starting 10/28/2024 [facility] Work Phone: Comment on above: Release Upon Ordering for 1 Occurrences starting 10/28/2024 Tendinitis of upper biceps tendon of right shoulder Tendinitis of upper biceps tendon of right shoulder [facility] Tenosynovitis, de Quervain Tenosynovitis, de Quervain [facility] End: 03-10-2020 Troponin I.cardiac [Mass/Vol] Troponin Lab Add-On One Time for 1 Occurrences starting 03/10/2020 until 03/10/2020 [facility] Comment on above: One Time for 1 Occurrences starting 02/21 until 03/10/2020 Troponin T.cardiac [Mass/volume] in Serum or Plasma by High sensitivity method [facility] Troponin T.cardiac [Mass/volume] in Serum or Plasma by High sensitivity method [facility] Urea nitrogen [Mass/ volume] in Serum or Plasma [facility] Urinalysis complete panel - Urine Complete Urinalysis Lab Routine Recurrent UTI Ordered: 07/15/2024 [facility] Comment on above: Ordered: 07/15/2024 End: 07-29-2023 Thyroid gland [facility] Work Phone: Comment on above: Once for 1 Occurrences starting 07/29/20 until 07/29/2023 End: 03-03-2025 Thyroid gland [facility] Work Phone: Comment on above: Once for 1 Occurrences starting 03/03/20 25 until 03/03/2025 Vitamin B6 measurement [facility] Work Phone: Vitamin B6 measurement [facility] XR Knee 3 Views [facility] XR Shoulder GE 2 Views [facility] Work Phone: Immunizations Immunization Date Immunization Notes Care Provider Fa cility 06-08-2024 influenza virus vaccine, unspecified formulation Ahu 1 [facility] Work Phone: 05-24-2024 influenza, seasonal, injectable Tess Ontiveros DO Work Phone: [facility] 06-06-2021 Fluzone High-Dose Quadrivalent 0.7 ML Intramuscular Suspension Prefilled Syringe Luis Villegas Mariana Work Phone: [facility] Work Phone: 06-06-2021 influenza virus vaccine, unspecified formulation Prince Vickers DO Work Phone: [facility] Work Phone: 06-10-2020 influenza, high dose seasonal, preservative-free Luis Starks Work Phone: [facility] Work Phone: 06-10-2019 influenza, injectabl e, quadrivalent, preservative free [facility] 06-10-2019 influenza quadrivale nt split vaccine (FLUZONE;FLUARIX;FLULAV AL;AFLURIA) injection 0.5 mL [place], [place] 07-31-2018 influenza, high dose seasonal, preservative-free; Translations: [Fluzone High-Dose 0.5 ML Intramuscular Suspension Prefilled Syringe] Jaylin Hutson [facility] Work Phone: Comment on above: Series: 10-02-2017 pneumococcal conjuga te vaccine, 13 valent; Translations: [Prevnar 13 Intramuscular Suspension] Jaylin Hutson [facility] Work Phone: Comment on above: Series: 08-02-2017 influenza, high dose seasonal, preservative-free; Translations: [Fluzone High-Dose 0.5 ML Intramuscular Suspension Prefilled Syringe] Jaylin Hutson [facility] Work Phone: Comment on above: Series: 08-08-2016 influenza nasal, unspecified formulation Luis Starks Work Phone: [facility] Work Phone: 08-08-2016 influenza, high dose seasonal, preservative-free [facility] 11-01-2015 pneumococcal conjuga te vaccine, 13 valent [place], [place] 06-30-2015 influenza, injectabl e, quadrivalent, contains preservative Luis Starks Work Phone: [facility] 07-08-2014 influenza, seasonal, injectable Luis Starks Work Phone: [facility] Work Phone: 12-29-2013 zoster vaccine, live [facility], [place] 04-10-2013 tetanus toxoid, redu yaneli diphtheria toxoid, and acellular pertussis vaccine, adsorbed [facility], [place] 03-19-2010 pneumococcal polysaccharide vaccine, 23 valent [place], [place] Payers Date Payer Category Payer Self-pay [id number] 2022 Medicare supplementa l policy (as second payer) [facility] MEDICARE SUPPLEMENT .[id number] 2022 Unknown 2016 Medicare UHC MEDICARE UHC MEDICARE COMPLETE xxxxxxxxx 2016-Present [id number] 2007 Medicare [id number] [id number] .[id number] 1959 Medicare [id number] 1.2.840.824907.1.13.239.2 .7.3.822892.315 1959 Unknown [id number] 1.2.840.178199.1.13.239.2 .7.3.073283.315 1950 Unknown [id number] 2.16.840.1.749478.3.579.2 .356 1950 Unknown [id number] 2.16.840.1.579635.3.579.2 .356 1950 Unknown [id number] 2.16.840.1.787949.3.579.2 .1046 1950 Unknown [id number] 2.16.840.1.548509.3.579.2 .1046 1950 Unknown [id number] 2.16.840.1.665320.3.579.2 .598 1950 Unknown [id number] 2.16.840.1.341215.3.579.2 .1245 1950 Unknown [id number] 2.16.840.1.161758.3.579.2 .1245 1950 Unknown [id number] 2.16.840.1.123787.3.579.2 .1245 1950 Unknown [id number] 2.16.840.1.003459.3.579.2 .1245 1950 Unknown [id number] 2.16.840.1.752296.3.579.2 .1245 1950 Unknown [id number] 2.16.840.1.754299.3.579.2 .1245 1950 Unknown [id number] 2.16.840.1.827234.3.579.2 .1244 1950 Unknown [id number] 2.16.840.1.573237.3.579.2 .1244 1950 Unknown [id number] 2.16.840.1.683199.3.579.2 .1244 1950 Unknown [id number] 2.16.840.1.950204.3.579.2 .1244 1950 Unknown [id number] 2.16.840.1.096317.3.579.2 .1244 1950 Unknown [id number] 2.16.840.1.858716.3.579.2 .1244 1950 Unknown [id number] 2.16.840.1.933509.3.579.2 .1244 1950 Unknown [id number] 2.16.840.1.409128.3.579.2 .1244 1950 Unknown [id number] 2.16.840.1.297140.3.579.2 .1244 1950 Unknown [id number] 2.16.840.1.462345.3.579.2 .1244 1950 Unknown [id number] 2.16.840.1.021209.3.579.2 .1244 1950 Unknown [id number] 2.16.840.1.137068.3.579.2 .1246 1950 Unknown [id number] 2.16.840.1.709874.3.579.2 .1246 1950 Unknown [id number] 2.16.840.1.382991.3.579.2 .1246 1950 Unknown [id number] 2.16.840.1.430874.3.579.2 .159 1950 Unknown [id number] 2.16.840.1.827197.3.579.2 .159 1950 Unknown [id number] 2.16.840.1.034640.3.579.2 .159 1950 Unknown [id number] 2.16.840.1.247317.3.579.2 .1242 1950 Unknown [id number] 2.16.840.1.548204.3.579.2 .1242 1950 Unknown [id number] 2.16.840.1.833428.3.579.2 .1242 1950 Unknown [id number] 2.16.840.1.954667.3.579.2 .1241 1950 Unknown [id number] 2.16.840.1.447788.3.579.2 .124 1950 Unknown [id number] 2.16.840.1.587414.3.579.2 .1243 1950 Unknown [id number] 2.16.840.1.014009.3.579.2 .1243 1950 Unknown [id number] 2.16.840.1.953064.3.579.2 .1243 1950 Unknown [id number] 2.16.840.1.638538.3.579.2 .4 1950 Unknown [id number] 2.16.840.1.630093.3.579.2 .1243 1950 Unknown [id number] 2.16.840.1.369068.3.579.2 .1244 1950 Unknown [id number] 2.16.840.1.388877.3.579.2 .1243 1950 Unknown [id number] 2.16.840.1.391090.3.579.2 .1243 1950 Unknown [id number] 2.16.840.1.178564.3.579.2 .1243 1950 Unknown [id number] 2.16.840.1.203380.3.579.2 .1244 1950 Unknown [id number] 2.16.840.1.133428.3.579.2 .1244 1950 Unknown [id number] 2.16.840.1.809267.3.579.2 .1244 1950 Unknown [id number] 2.16.840.1.373651.3.579.2 .1244 1950 Unknown [id number] 2..840.1.206338.3.579.2 .1244 Private Health Insurance [id number] Unknown [id number] Unknown AARP MCR ADV [id number] Unknown [id number] 2.16.840.1.551518.3.579.2 .462 Unknown [id number] 2.840.1.927350.3.579.2 .462 Unknown [id number] 2.16.840.1.140039.3.579.2 .462 Unknown [id number] 2.16.840.1.397609.3.579.2 .462 Unknown [id number] 2.16840.1.625332.3.579.2 .462 Unknown [id number] 2.16840.1.527506.3.579.2 .462 Unknown [id number] 2.16.840.1.683728.3.579.2 .462 Unknown [id number] 2.16.840.1.230599.3.579.2 .462 Unknown [id number] 2.16.840.1.320462.3.579.2 .462 Unknown [id number] 2.16.840.1.710714.3.579.2 .462 Unknown [id number] 2.16.840.1.768785.3.579.2 .462 Unknown [id number] 2.16.840.1.681387.3.579.2 .462 Unknown [id number] 2.16.840.1.645421.3.579.2 .462 Unknown [id number] 2.16.840.1.704757.3.579.2 .462 Unknown [id number] 2.16.840.1.900438.3.579.2 .462 Unknown [id number] 2.16.840.1.640265.3.579.2 .462 Social History Date Type Detail Facility Start: 06-02-2019 End: 04-09-2023 Tobacco smoking status NHIS Never smoker [place] Start: 06-02-2019 End: 04-21-2024 Alcohol intake No [facility] Start: 1950 Sex Assigned At Not on file [place] Start: 07-24-2019 Alcohol intake Current non-dr services 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 of alcohol (finding) [place] Start: 03-12-2020 End: 02-17-2025 Alcohol intake Ex-drinker (finding) [facility] Exposure to SARS-CoV-2 (event) Unable to assess [place] Start: 05-27-2020 End: 04-09-2023 Tobacco use and exposure Never used [place] Start: 03-30-2023 End: 02-03-2025 Exposure to SARS-CoV-2 (event) Not sure [place] Start: 04-09-2023 End: 04-21-2024 Never a smoker Never a smoker [facility] Comment on above: None; Start: 02-08-2022 End: 01-11-2023 Tobacco smoking status NHIS Unknown if ever smoked [facility] Start: 02-27-2019 None [facility] Start: 03-18-2020 Spouse/ Signif icant Other [facility] Start: 02-28-2019 Non-smoker [facility] Start: 1950 Sex Assigned At Female [facility] Start: 04-09-2023 End: 03-30-2025 Alcohol intake Lifetime non-drinker (finding) [facility] Work Phone: Start: 04-23-2022 End: 12-23-2024 Sex Female (finding) [facility] How often to you hav e a drink containing alcohol? Never [facility] Start: 08-18-2022 How many standard drinks containing alcohol do you have on a typical day? Patient does not drink [facility] Work Phone: In the past 12 months, was there a time when you were not able to pay the mortgage or rent on time? No [facility] Work Phone: NEGATED: Highlighted row - - -[facility] heriberto Work Phone: NEGATED: Highlighted rowStart: EDWIN History of tobacco use Passive smoker [facility] Work Phone: Medical Equipment Procedure Code Equipment Code Equipment Origin al Text Equipment Identifier Dates Start: 09-04-2017 End: 04-03-2025 OneTouch Ultra Blue In Vitro Strip USE 1 STRIP Twice daily check blood sugar 1 to 2 times a day Quantity: 2 Refills: 3 Jaylin Hutson DO Start : 04-Sep-2017 Active 100 Strip Box Start: 09-04-2017 Inject 1 each in to the skin 3 times daily [id number] Start: 08-08-2016 ONETOUCH DELICA LANCETS 33G [facility] [id number] Start: 01-28-2019 OneTouch Delica Lancets 33G USE TO CHECK BLOOD SUGAR 1 - 2 TIMES A DAY Quantity: 1 Refills: 3 Jalyin Hutson DO Start : 04-Sep-2017 Active 100 Unit Box Start: 09-04-2017 OneTouch Ultra Blue STRP USE 1 STRIP Twice daily check blood sugar 1 to 2 times a day Quantity: 2 Refills: 3 Jaylin Hutson DO Start : 04-Sep-2017 Active 100 Strip Box Start: 09-04-2017 OneTouch Delica Lancets 33G USE TO CHECK BLOOD SUGAR 1 - 2 TIMES A DAY Quantity: 1 Refills: 3 Jaylin Hutson DO Start : 04-Sep-2017 Active 100 Unit Box Start: 09-04-2017 OneTouch Ultra Blue STRP USE 1 STRIP Twice daily check blood sugar 1 to 2 times a day Quantity: 2 Refills: 3 Jaylin Hutson DO Start : 04-Sep-2017 Active 100 Strip Box Start: 09-04-2017 OneTouch Delica Lancets 33G USE TO CHECK BLOOD SUGAR 1 - 2 TIMES A DAY Quantity: 1 Refills: 3 Jaylin Hutson DO Start : 04-Sep-2017 Active 100 Unit Box Start: 09-04-2017 OneTouch Ultra Blue In Vitro Strip USE 1 STRIP Twice daily check blood sugar 1 to 2 times a day Quantity: 2 Refills: 3 Jaylin Hutson DO Start : 04-Sep-2017 Active 100 Strip Box Start: 09-04-2017 Blood Sugar Diagnostic (Onetouch Ultra Test) strip Start: 12-19-2021 Lancets Start: 01-01-2022 Pen Needle, Diabetic (Bd Ultra-Fine Nan Pen Needle) 32 gauge x 5/32 needle Start: 01-01-2022 Lancets Start: 09-18-2021 End: 12-19-2021 Lancets Start: 12-19-2021 End: 12-20-2021 Lancets Start: 12-20-2021 End: 01-01-2022 one touch ultra test strips Start: 09-18-2021 End: 12-19-2021 Pen Needle, Diabetic (Bd Ultra-Fine Nan Pen Needle) 32 gauge x 5/32 needle Start: 12-19-2021 End: 12-20-2021 Pen Needle, Diabetic (Bd Ultra-Fine Nan Pen Needle) 32 gauge x 5/32 needle Start: 12-20-2021 End: 01-01-2022 Blood Sugar Diagnostic (Onetouch Ultra Test) strip Start: 12-19-2021 Lancets Start: 01-01-2022 Pen Needle, Diabetic (Bd Ultra-Fine Nan Pen Needle) 32 gauge x 5/32 needle Start: 01-01-2022 Lancets Start: 09-18-2021 End: 12-19-2021 Lancets Start: 12-19-2021 End: 12-20-2021 Lancets Start: 12-20-2021 End: 01-01-2022 one touch ultra test strips Start: 09-18-2021 End: 12-19-2021 Pen Needle, Diabetic (Bd Ultra-Fine Nan Pen Needle) 32 gauge x 5/32 needle Start: 12-19-2021 End: 12-20-2021 Pen Needle, Diabetic (Bd Ultra-Fine Nan Pen Needle) 32 gauge x 5/32 needle Start: 12-20-2021 End: 01-01-2022 Blood Sugar Diagnostic (Onetouch Ultra Test) strip Start: 12-19-2021 Lancets Start: 01-01-2022 Pen Needle, Diabetic (Bd Ultra-Fine Nan Pen Needle) 32 gauge x 5/32 needle Start: 01-01-2022 Lancets Start: 09-18-2021 End: 12-19-2021 Lancets Start: 12-19-2021 End: 12-20-2021 Lancets Start: 12-20-2021 End: 01-01-2022 one touch ultra test strips Start: 09-18-2021 End: 12-19-2021 Pen Needle, Diabetic (Bd Ultra-Fine Nan Pen Needle) 32 gauge x 5/32 needle Start: 12-19-2021 End: 12-20-2021 Pen Needle, Diabetic (Bd Ultra-Fine Nan Pen Needle) 32 gauge x 5/32 needle Start: 12-20-2021 End: 01-01-2022 Blood Sugar Diagnostic (Onetouch Ultra Test) strip Start: 12-19-2021 Lancets Start: 01-01-2022 Pen Needle, Diabetic (Bd Ultra-Fine Nan Pen Needle) 32 gauge x 5/32 needle Start: 01-01-2022 Lancets Start: 09-18-2021 End: 12-19-2021 Lancets Start: 12-19-2021 End: 12-20-2021 Lancets Start: 12-20-2021 End: 01-01-2022 one touch ultra test strips Start: 09-18-2021 End: 12-19-2021 Pen Needle, Diabetic (Bd Ultra-Fine Nan Pen Needle) 32 gauge x 5/32 needle Start: 12-19-2021 End: 12-20-2021 Pen Needle, Diabetic (Bd Ultra-Fine Nan Pen Needle) 32 gauge x 5/32 needle Start: 12-20-2021 End: 01-01-2022 Blood Sugar Diagnostic (Onetouch Ultra Test) strip Start: 12-19-2021 Lancets Start: 01-01-2022 Pen Needle, Diabetic (Bd Ultra-Fine Nan Pen Needle) 32 gauge x 5/32 needle Start: 01-01-2022 Lancets Start: 09-18-2021 End: 12-19-2021 Lancets Start: 12-19-2021 End: 12-20-2021 Lancets Start: 12-20-2021 End: 01-01-2022 one touch ultra test strips Start: 09-18-2021 End: 12-19-2021 Pen Needle, Diabetic (Bd Ultra-Fine Nan Pen Needle) 32 gauge x 5/32 needle Start: 12-19-2021 End: 12-20-2021 Pen Needle, Diabetic (Bd Ultra-Fine Nan Pen Needle) 32 gauge x 5/32 needle Start: 12-20-2021 End: 01-01-2022 Blood Sugar Diagnostic (Onetouch Ultra Test) strip Start: 07-20-2022 Lancets Start: 01-01-2022 Pen Needle, Diabetic (Bd Ultra-Fine Nan Pen Needle) 32 gauge x 5/32 needle Start: 07-04-2022 Blood Sugar Diagnostic (Onetouch Ultra Test) strip Start: 12-19-2021 End: 07-20-2022 Lancets Start: 09-18-2021 End: 12-19-2021 Lancets Start: 12-19-2021 End: 12-20-2021 Lancets Start: 12-20-2021 End: 01-01-2022 one touch ultra test strips Start: 09-18-2021 End: 12-19-2021 Pen Needle, Diabetic (Bd Ultra-Fine Nan Pen Needle) 32 gauge x 5/32 needle Start: 12-19-2021 End: 12-20-2021 Pen Needle, Diabetic (Bd Ultra-Fine Nan Pen Needle) 32 gauge x 5/32 needle Start: 12-20-2021 End: 01-01-2022 Pen Needle, Diabetic (Bd Ultra-Fine Nan Pen Needle) 32 gauge x 5/32 needle Start: 01-01-2022 End: 07-04-2022 Blood Sugar Diagnostic (Onetouch Ultra Test) strip Start: 07-20-2022 Lancets Start: 09-03-2022 Pen Needle, Diabetic (Bd Ultra-Fine Nan Pen Needle) 32 gauge x 5/32 needle Start: 07-04-2022 Blood Sugar Diagnostic (Onetouch Ultra Test) strip Start: 12-19-2021 End: 07-20-2022 Lancets Start: 09-18-2021 End: 12-19-2021 Lancets Start: 12-19-2021 End: 12-20-2021 Lancets Start: 12-20-2021 End: 01-01-2022 Lancets Start: 01-01-2022 End: 09-03-2022 one touch ultra test strips Start: 09-18-2021 End: 12-19-2021 Pen Needle, Diabetic (Bd Ultra-Fine Nan Pen Needle) 32 gauge x 5/32 needle Start: 12-19-2021 End: 12-20-2021 Pen Needle, Diabetic (Bd Ultra-Fine Nan Pen Needle) 32 gauge x 5/32 needle Start: 12-20-2021 End: 01-01-2022 Pen Needle, Diabetic (Bd Ultra-Fine Nan Pen Needle) 32 gauge x 5/32 needle Start: 01-01-2022 End: 07-04-2022 Blood Sugar Diagnostic (Onetouch Ultra Test) strip Start: 07-20-2022 Lancets Start: 09-03-2022 Pen Needle, Diabetic (Bd Ultra-Fine Nan Pen Needle) 32 gauge x 5/32 needle Start: 07-04-2022 Blood Sugar Diagnostic (Onetouch Ultra Test) strip Start: 12-19-2021 End: 07-20-2022 Lancets Start: 09-18-2021 End: 12-19-2021 Lancets Start: 12-19-2021 End: 12-20-2021 Lancets Start: 12-20-2021 End: 01-01-2022 Lancets Start: 01-01-2022 End: 09-03-2022 one touch ultra test strips Start: 09-18-2021 End: 12-19-2021 Pen Needle, Diabetic (Bd Ultra-Fine Nan Pen Needle) 32 gauge x 5/32 needle Start: 12-19-2021 End: 12-20-2021 Pen Needle, Diabetic (Bd Ultra-Fine Nan Pen Needle) 32 gauge x 5/32 needle Start: 12-20-2021 End: 01-01-2022 Pen Needle, Diabetic (Bd Ultra-Fine Nan Pen Needle) 32 gauge x 5/32 needle Start: 01-01-2022 End: 07-04-2022 Blood Sugar Diagnostic (Onetouch Ultra Test) strip Start: 07-20-2022 Lancets Start: 09-03-2022 Pen Needle, Diabetic (Bd Ultra-Fine Nan Pen Needle) 32 gauge x 5/32 needle Start: 07-04-2022 Blood Sugar Diagnostic (Onetouch Ultra Test) strip Start: 12-19-2021 End: 07-20-2022 Lancets Start: 09-18-2021 End: 12-19-2021 Lancets Start: 12-19-2021 End: 12-20-2021 Lancets Start: 12-20-2021 End: 01-01-2022 Lancets Start: 01-01-2022 End: 09-03-2022 one touch ultra test strips Start: 09-18-2021 End: 12-19-2021 Pen Needle, Diabetic (Bd Ultra-Fine Nan Pen Needle) 32 gauge x 5/32 needle Start: 12-19-2021 End: 12-20-2021 Pen Needle, Diabetic (Bd Ultra-Fine Nan Pen Needle) 32 gauge x 5/32 needle Start: 12-20-2021 End: 01-01-2022 Pen Needle, Diabetic (Bd Ultra-Fine Nan Pen Needle) 32 gauge x 5/32 needle Start: 01-01-2022 End: 07-04-2022 Blood Sugar Diagnostic (Onetouch Ultra Test) strip Start: 07-20-2022 Lancets Start: 09-03-2022 Pen Needle, Diabetic (Bd Ultra-Fine Nan Pen Needle) 32 gauge x 5/32 needle Start: 12-27-2022 Blood Sugar Diagnostic (Onetouch Ultra Test) strip Start: 12-19-2021 End: 07-20-2022 Lancets Start: 09-18-2021 End: 12-19-2021 Lancets Start: 12-19-2021 End: 12-20-2021 Lancets Start: 12-20-2021 End: 01-01-2022 Lancets Start: 01-01-2022 End: 09-03-2022 one touch ultra test strips Start: 09-18-2021 End: 12-19-2021 Pen Needle, Diabetic (Bd Ultra-Fine Nan Pen Needle) 32 gauge x 5/32 needle Start: 12-19-2021 End: 12-20-2021 Pen Needle, Diabetic (Bd Ultra-Fine Nan Pen Needle) 32 gauge x 5/32 needle Start: 12-20-2021 End: 01-01-2022 Pen Needle, Diabetic (Bd Ultra-Fine Nan Pen Needle) 32 gauge x 5/32 needle Start: 01-01-2022 End: 07-04-2022 Pen Needle, Diabetic (Bd Ultra-Fine Nan Pen Needle) 32 gauge x 5/32 needle Start: 07-04-2022 End: 12-27-2022 Blood Sugar Diagnostic (Onetouch Ultra Test) strip Start: 07-20-2022 Lancets Start: 09-03-2022 Pen Needle, Diabetic (Bd Ultra-Fine Nan Pen Needle) 32 gauge x 5/32 needle Start: 12-27-2022 Blood Sugar Diagnostic (Onetouch Ultra Test) strip Start: 12-19-2021 End: 07-20-2022 Lancets Start: 09-18-2021 End: 12-19-2021 Lancets Start: 12-19-2021 End: 12-20-2021 Lancets Start: 12-20-2021 End: 01-01-2022 Lancets Start: 01-01-2022 End: 09-03-2022 one touch ultra test strips Start: 09-18-2021 End: 12-19-2021 Pen Needle, Diabetic (Bd Ultra-Fine Nan Pen Needle) 32 gauge x 5/32 needle Start: 12-19-2021 End: 12-20-2021 Pen Needle, Diabetic (Bd Ultra-Fine Nan Pen Needle) 32 gauge x 5/32 needle Start: 12-20-2021 End: 01-01-2022 Pen Needle, Diabetic (Bd Ultra-Fine Nan Pen Needle) 32 gauge x 5/32 needle Start: 01-01-2022 End: 07-04-2022 Pen Needle, Diabetic (Bd Ultra-Fine Nan Pen Needle) 32 gauge x 5/32 needle Start: 07-04-2022 End: 12-27-2022 Blood Sugar Diagnostic (Onetouch Ultra Test) strip Start: 07-20-2022 Lancets Start: 09-03-2022 Pen Needle, Diabetic (Bd Ultra-Fine Nan Pen Needle) 32 gauge x 5/32 needle Start: 12-27-2022 Blood Sugar Diagnostic (Onetouch Ultra Test) strip Start: 12-19-2021 End: 07-20-2022 Lancets Start: 09-18-2021 End: 12-19-2021 Lancets Start: 12-19-2021 End: 12-20-2021 Lancets Start: 12-20-2021 End: 01-01-2022 Lancets Start: 01-01-2022 End: 09-03-2022 one touch ultra test strips Start: 09-18-2021 End: 12-19-2021 Pen Needle, Diabetic (Bd Ultra-Fine Nan Pen Needle) 32 gauge x 5/32 needle Start: 12-19-2021 End: 12-20-2021 Pen Needle, Diabetic (Bd Ultra-Fine Nan Pen Needle) 32 gauge x 5/32 needle Start: 12-20-2021 End: 01-01-2022 Pen Needle, Diabetic (Bd Ultra-Fine Nan Pen Needle) 32 gauge x 5/32 needle Start: 01-01-2022 End: 07-04-2022 Pen Needle, Diabetic (Bd Ultra-Fine Nan Pen Needle) 32 gauge x 5/32 needle Start: 07-04-2022 End: 12-27-2022 twice a day. [id number] Start: 09-04-2017 End: 10-21-2023 Bone Matrix, Osteocel Pro Cellular, Medium Case [id number] Start: 07-31-2022 Comment on above: Description: Convert ed from [facility]. Please see archived information for full log information. Cement, Bone, Simplex P, Radiopaque, Full Dose, 40 Gm Case [id number] Start: 01-20-2018 Comment on above: Description: Convert ed from [facility]. Please see archived information for full log information. Plate Xlif Decad e 2 Hole Sz 14 Case [id number] Start: 07-31-2022 Comment on above: Description: Convert ed from [facility]. Please see archived information for full log information. Additional Information:per bill only jdr 08/01/2022 Insert, Triathlo n Cs, Sz 5, 13mm Case [id number] Start: 01-20-2018 Comment on above: Description: Convert ed from [facility]. Please see archived information for full log information. Kit, Implant System, Proximal Tenodesis Case [id number] Start: 10-22-2018 Comment on above: Description: Convert ed from [facility]. Please see archived information for full log information. Spacer, Modulus Xlw, [id number], 10 Deg Case [id number] Start: 07-31-2022 Comment on above: Description: Convert ed from [facility]. Please see archived information for full log information. TechLITE Pen Needle 32 gauge x 5/32 needle [id number] Start: 08-05-2023 Plate [place] Xlif Decade 5.5 X 45mm Large Case [id number] Start: 07-31-2022 Comment on above: Description: Convert ed from [facility]. Please see archived information for full log information. Additional Information:per bill only jdr 08/01/2022 Plate, Tibial Triath Alejandra Jelani Fxd Bplt #5 Case [id number]_[facility] Start: 01-20-2018 Comment on above: Description: Convert ed from [facility]. Please see archived information for full log information. Patella, Asymm Triath 32mm X 10mm Case [id number]_[facility] Start: 01-20-2018 Comment on above: Description: Convert ed from [facility]. Please see archived information for full log information. Fem Comp, Triath Cr Sz5 Right Case [id number]_[facility] Start: 01-20-2018 Comment on above: Description: Convert ed from [facility]. Please see archived information for full log information. Inject 1 each in to the skin 6 times a day. [id number] Start: 10-21-2023 End: 10-20-2024 1 each 6 times a day. [id number] Start: 02-24-2024 End: 02-23-2025 Inject 1 each under the skin 4 times a day before meals. [id number] Start: 02-24-2024 End: 02-23-2025 1 each 4 times a day before meals. [id number] Start: 04-03-2024 End: 04-03-2025 Inject 1 each in to the skin 4 times a day before meals. [id number] Start: 04-03-2024 End: 04-03-2025 Inject 1 each under the skin 4 times a day before meals. [id number] Start: 06-22-2024 End: 06-22-2025 1 each 4 times a day before meals. [id number] Start: 08-17-2024 End: 08-17-2025 Inject 1 each in to the skin 4 times a day before meals. [id number] Start: 08-17-2024 End: 08-17-2025 1 each 4 times a day before meals. [id number] Start: 08-28-2024 End: 08-28-2025 1 each 4 times a day before meals. [id number] Start: 08-28-2024 End: 08-28-2025 1 each 4 times a day before meals. [id number] Start: 03-18-2024 End: 03-18-2025 Inject 1 each in to the skin 4 times a day before meals. [id number] Start: 03-18-2024 End: 03-18-2025 1 each 6 times a day. [id number] Start: 03-11-2024 End: 03-18-2024 Inject 1 each in to the skin 6 times a day. [id number] Start: 03-11-2024 End: 03-18-2024 1 each 4 times a day before meals. [id number] Start: 09-10-2024 End: 09-10-2025 USE TO TEST BLOO D SUGAR FOUR TIMES A DAY BEFORE MEALS [id number] Start: 09-10-2024 Blood Sugar Diagnostic (Onetouch Ultra Test) strip Start: 08-05-2023 Lancets misc Start: 08-05-2023 Pen Needle, Diabetic (Bd Ultra-Fine Nan Pen Needle) 32 gauge x 5/32 needle Start: 09-12-2023 Blood Sugar Diagnostic (Onetouch Ultra Test) strip Start: 12-19-2021 End: 07-20-2022 Blood Sugar Diagnostic (Onetouch Ultra Test) strip Start: 07-20-2022 End: 01-29-2023 Blood Sugar Diagnostic (Onetouch Ultra Test) strip Start: 01-29-2023 End: 08-05-2023 Lancets misc Start: 09-18-2021 End: 12-19-2021 Lancets misc Start: 09-03-2022 End: 08-05-2023 Lancets misc Start: 12-19-2021 End: 12-20-2021 Lancets misc Start: 12-20-2021 End: 01-01-2022 Lancets misc Start: 01-01-2022 End: 09-03-2022 one touch ultra test strips Start: 09-18-2021 End: 12-19-2021 Pen Needle, Diabetic (Bd Ultra-Fine Nan Pen Needle) 32 gauge x 5/32 needle Start: 12-19-2021 End: 12-20-2021 Pen Needle, Diabetic (Bd Ultra-Fine Nan Pen Needle) 32 gauge x 5/32 needle Start: 12-20-2021 End: 01-01-2022 Pen Needle, Diabetic (Bd Ultra-Fine Nan Pen Needle) 32 gauge x 5/32 needle Start: 01-01-2022 End: 07-04-2022 Pen Needle, Diabetic (Bd Ultra-Fine Nan Pen Needle) 32 gauge x 5/32 needle Start: 07-04-2022 End: 12-27-2022 Pen Needle, Diabetic (Bd Ultra-Fine Nan Pen Needle) 32 gauge x 5/32 needle Start: 12-27-2022 End: 09-12-2023 Drug-eluting coronary artery stent, non-bioabsorbable- polymer-coated [id number] FDA Start: 11-26-2024 Blood Sugar Diagnostic (Onetouch Ultra Test) strip Start: 08-05-2023 Lancets misc Start: 08-05-2023 Pen Needle, Diabetic (Bd Ultra-Fine Nan Pen Needle) 32 gauge x 5/32 needle Start: 09-12-2023 Blood Sugar Diagnostic (Onetouch Ultra Test) strip Start: 12-19-2021 End: 07-20-2022 Blood Sugar Diagnostic (Onetouch Ultra Test) strip Start: 07-20-2022 End: 01-29-2023 Blood Sugar Diagnostic (Onetouch Ultra Test) strip Start: 01-29-2023 End: 08-05-2023 Lancets misc Start: 09-18-2021 End: 12-19-2021 Lancets misc Start: 09-03-2022 End: 08-05-2023 Lancets misc Start: 12-19-2021 End: 12-20-2021 Lancets misc Start: 12-20-2021 End: 01-01-2022 Lancets misc Start: 01-01-2022 End: 09-03-2022 one touch ultra test strips Start: 09-18-2021 End: 12-19-2021 Pen Needle, Diabetic (Bd Ultra-Fine Nan Pen Needle) 32 gauge x 5/32 needle Start: 12-19-2021 End: 12-20-2021 Pen Needle, Diabetic (Bd Ultra-Fine Ann Pen Needle) 32 gauge x 5/32 needle Start: 12-20-2021 End: 01-01-2022 Pen Needle, Diabetic (Bd Ultra-Fine Nan Pen Needle) 32 gauge x 5/32 needle Start: 01-01-2022 End: 07-04-2022 Pen Needle, Diabetic (Bd Ultra-Fine Nan Pen Needle) 32 gauge x 5/32 needle Start: 07-04-2022 End: 12-27-2022 Pen Needle, Diabetic (Bd Ultra-Fine Ann Pen Needle) 32 gauge x 5/32 needle Start: 12-27-2022 End: 09-12-2023 Blood Sugar Diagnostic (Onetouch Ultra Test) strip Start: 08-05-2023 Lancets misc Start: 08-05-2023 Pen Needle, Diabetic (Bd Ultra-Fine Nan Pen Needle) 32 gauge x 5/32 needle Start: 09-12-2023 Blood Sugar Diagnostic (Onetouch Ultra Test) strip Start: 12-19-2021 End: 07-20-2022 Blood Sugar Diagnostic (Onetouch Ultra Test) strip Start: 07-20-2022 End: 01-29-2023 Blood Sugar Diagnostic (Onetouch Ultra Test) strip Start: 01-29-2023 End: 08-05-2023 Lancets misc Start: 09-18-2021 End: 12-19-2021 Lancets misc Start: 09-03-2022 End: 08-05-2023 Lancets misc Start: 12-19-2021 End: 12-20-2021 Lancets misc Start: 12-20-2021 End: 04-11-2022 Lancets misc Start: 01-01-2022 End: 09-03-2022 one touch ultra test strips Start: 09-18-2021 End: 12-19-2021 Pen Needle, Diabetic (Bd Ultra-Fine Nan Pen Needle) 32 gauge x 5/32 needle Start: 12-19-2021 End: 12-20-2021 Pen Needle, Diabetic (Bd Ultra-Fine Nan Pen Needle) 32 gauge x 5/32 needle Start: 12-20-2021 End: 01-01-2022 Pen Needle, Diabetic (Bd Ultra-Fine Nan Pen Needle) 32 gauge x 5/32 needle Start: 01-01-2022 End: 07-04-2022 Pen Needle, Diabetic (Bd Ultra-Fine Nan Pen Needle) 32 gauge x 5/32 needle Start: 07-04-2022 End: 12-27-2022 Pen Needle, Diabetic (Bd Ultra-Fine Nan Pen Needle) 32 gauge x 5/32 needle Start: 12-27-2022 End: 09-12-2023 Blood Sugar Diagnostic (Onetouch Ultra Test) strip Start: 08-05-2023 Lancets misc Start: 08-05-2023 Pen Needle, Diabetic (Bd Ultra-Fine Nan Pen Needle) 32 gauge x 5/32 needle Start: 09-12-2023 Blood Sugar Diagnostic (Onetouch Ultra Test) strip Start: 12-19-2021 End: 07-20-2022 Blood Sugar Diagnostic (Onetouch Ultra Test) strip Start: 07-20-2022 End: 01-29-2023 Blood Sugar Diagnostic (Onetouch Ultra Test) strip Start: 01-29-2023 End: 08-05-2023 Lancets misc Start: 09-18-2021 End: 12-19-2021 Lancets misc Start: 09-03-2022 End: 08-05-2023 Lancets misc Start: 12-19-2021 End: 12-20-2021 Lancets misc Start: 12-20-2021 End: 01-01-2022 Lancets misc Start: 01-01-2022 End: 09-03-2022 one touch ultra test strips Start: 09-18-2021 End: 12-19-2021 Pen Needle, Diabetic (Bd Ultra-Fine Nan Pen Needle) 32 gauge x 5/32 needle Start: 12-19-2021 End: 12-20-2021 Pen Needle, Diabetic (Bd Ultra-Fine Nan Pen Needle) 32 gauge x 5/32 needle Start: 12-20-2021 End: 01-01-2022 Pen Needle, Diabetic (Bd Ultra-Fine Nan Pen Needle) 32 gauge x 5/32 needle Start: 01-01-2022 End: 07-04-2022 Pen Needle, Diabetic (Bd Ultra-Fine Nan Pen Needle) 32 gauge x 5/32 needle Start: 07-04-2022 End: 12-27-2022 Pen Needle, Diabetic (Bd Ultra-Fine Nan Pen Needle) 32 gauge x 5/32 needle Start: 12-27-2022 End: 09-12-2023 Blood Sugar Diagnostic (Onetouch Ultra Test) strip Start: 08-05-2023 Lancets misc Start: 08-05-2023 Pen Needle, Diabetic (Bd Ultra-Fine Nan Pen Needle) 32 gauge x 5/32 needle Start: 09-12-2023 Blood Sugar Diagnostic (Onetouch Ultra Test) strip Start: 12-19-2021 End: 07-20-2022 Blood Sugar Diagnostic (Onetouch Ultra Test) strip Start: 07-20-2022 End: 01-29-2023 Blood Sugar Diagnostic (Onetouch Ultra Test) strip Start: 01-29-2023 End: 08-05-2023 Lancets misc Start: 09-18-2021 End: 12-19-2021 Lancets misc Start: 09-03-2022 End: 08-05-2023 Lancets misc Start: 12-19-2021 End: 12-20-2021 Lancets misc Start: 12-20-2021 End: 01-01-2022 Lancets misc Start: 01-01-2022 End: 09-03-2022 one touch ultra test strips Start: 09-18-2021 End: 12-19-2021 Pen Needle, Diabetic (Bd Ultra-Fine Nan Pen Needle) 32 gauge x 5/32 needle Start: 12-19-2021 End: 12-20-2021 Pen Needle, Diabetic (Bd Ultra-Fine Nan Pen Needle) 32 gauge x 5/32 needle Start: 12-20-2021 End: 01-01-2022 Pen Needle, Diabetic (Bd Ultra-Fine Nan Pen Needle) 32 gauge x 5/32 needle Start: 01-01-2022 End: 07-04-2022 Pen Needle, Diabetic (Bd Ultra-Fine Nan Pen Needle) 32 gauge x 5/32 needle Start: 07-04-2022 End: 12-27-2022 Pen Needle, Diabetic (Bd Ultra-Fine Nan Pen Needle) 32 gauge x 5/32 needle Start: 12-27-2022 End: 09-12-2023 Blood Sugar Diagnostic (Onetouch Ultra Test) strip Start: 08-05-2023 Lancets misc Start: 08-05-2023 Pen Needle, Diabetic (Bd Ultra-Fine Nan Pen Needle) 32 gauge x 5/32 needle Start: 09-12-2023 Blood Sugar Diagnostic (Onetouch Ultra Test) strip Start: 12-19-2021 End: 07-20-2022 Blood Sugar Diagnostic (Onetouch Ultra Test) strip Start: 07-20-2022 End: 01-29-2023 Blood Sugar Diagnostic (Onetouch Ultra Test) strip Start: 01-29-2023 End: 08-05-2023 Lancets misc Start: 09-18-2021 End: 12-19-2021 Lancets misc Start: 09-03-2022 End: 08-05-2023 Lancets misc Start: 12-19-2021 End: 12-20-2021 Lancets misc Start: 12-20-2021 End: 01-01-2022 Lancets misc Start: 01-01-2022 End: 09-03-2022 one touch ultra test strips Start: 09-18-2021 End: 12-19-2021 Pen Needle, Diabetic (Bd Ultra-Fine Nan Pen Needle) 32 gauge x 5/32 needle Start: 12-19-2021 End: 12-20-2021 Pen Needle, Diabetic (Bd Ultra-Fine Nan Pen Needle) 32 gauge x 5/32 needle Start: 12-20-2021 End: 01-01-2022 Pen Needle, Diabetic (Bd Ultra-Fine Nan Pen Needle) 32 gauge x 5/32 needle Start: 01-01-2022 End: 07-04-2022 Pen Needle, Diabetic (Bd Ultra-Fine Nan Pen Needle) 32 gauge x 5/32 needle Start: 07-04-2022 End: 12-27-2022 Pen Needle, Diabetic (Bd Ultra-Fine Nan Pen Needle) 32 gauge x 5/32 needle Start: 12-27-2022 End: 09-12-2023 Inject 1 each under the skin 4 times a day before meals. [id number] Start: 02-03-2025 End: 02-03-2026 Blood Sugar Diagnostic (Onetouch Ultra Test) strip Start: 08-05-2023 Lancets misc Start: 08-05-2023 Pen Needle, Diabetic (Bd Ultra-Fine Nan Pen Needle) 32 gauge x 5/32 needle Start: 09-12-2023 Blood Sugar Diagnostic (Onetouch Ultra Test) strip Start: 12-19-2021 End: 07-20-2022 Blood Sugar Diagnostic (Onetouch Ultra Test) strip Start: 07-20-2022 End: 01-29-2023 Blood Sugar Diagnostic (Onetouch Ultra Test) strip Start: 01-29-2023 End: 08-05-2023 Lancets misc Start: 09-18-2021 End: 12-19-2021 Lancets misc Start: 09-03-2022 End: 08-05-2023 Lancets misc Start: 12-19-2021 End: 12-20-2021 Lancets misc Start: 12-20-2021 End: 01-01-2022 Lancets misc Start: 01-01-2022 End: 09-03-2022 one touch ultra test strips Start: 09-18-2021 End: 12-19-2021 Pen Needle, Diabetic (Bd Ultra-Fine Nan Pen Needle) 32 gauge x 5/32 needle Start: 12-19-2021 End: 12-20-2021 Pen Needle, Diabetic (Bd Ultra-Fine Nan Pen Needle) 32 gauge x 5/32 needle Start: 12-20-2021 End: 01-01-2022 Pen Needle, Diabetic (Bd Ultra-Fine Nan Pen Needle) 32 gauge x 5/32 needle Start: 01-01-2022 End: 07-04-2022 Pen Needle, Diabetic (Bd Ultra-Fine Nan Pen Needle) 32 gauge x 5/32 needle Start: 07-04-2022 End: 12-27-2022 Pen Needle, Diabetic (Bd Ultra-Fine Nan Pen Needle) 32 gauge x 5/32 needle Start: 12-27-2022 End: 09-12-2023 Blood Sugar Diagnostic (Onetouch Ultra Test) strip Start: 08-05-2023 Lancets misc Start: 08-05-2023 Pen Needle, Diabetic (Bd Ultra-Fine Nan Pen Needle) 32 gauge x 5/32 needle Start: 09-12-2023 Blood Sugar Diagnostic (Onetouch Ultra Test) strip Start: 12-19-2021 End: 07-20-2022 Blood Sugar Diagnostic (Onetouch Ultra Test) strip Start: 07-20-2022 End: 01-29-2023 Blood Sugar Diagnostic (Onetouch Ultra Test) strip Start: 01-29-2023 End: 08-05-2023 Lancets misc Start: 09-18-2021 End: 12-19-2021 Lancets misc Start: 09-03-2022 End: 08-05-2023 Lancets misc Start: 12-19-2021 End: 12-20-2021 Lancets misc Start: 12-20-2021 End: 01-01-2022 Lancets misc Start: 01-01-2022 End: 09-03-2022 one touch ultra test strips Start: 09-18-2021 End: 12-19-2021 Pen Needle, Diabetic (Bd Ultra-Fine Nan Pen Needle) 32 gauge x 5/32 needle Start: 12-19-2021 End: 12-20-2021 Pen Needle, Diabetic (Bd Ultra-Fine Nan Pen Needle) 32 gauge x 5/32 needle Start: 12-20-2021 End: 01-01-2022 Pen Needle, Diabetic (Bd Ultra-Fine Nan Pen Needle) 32 gauge x 5/32 needle Start: 01-01-2022 End: 07-04-2022 Pen Needle, Diabetic (Bd Ultra-Fine Nan Pen Needle) 32 gauge x 5/32 needle Start: 07-04-2022 End: 12-27-2022 Pen Needle, Diabetic (Bd Ultra-Fine Nan Pen Needle) 32 gauge x 5/32 needle Start: 12-27-2022 End: 09-12-2023 Goals Date Patient Goal Desired Activity /State Personal health goal Personal health goal Functional Status Date Assessment Result Facility 02-24-2025 Generalized anxiety disorder 7 item (MAR-7) [facility] Work Phone: 02-24-2025 Patient Health Questionnaire 2 item (PHQ-2) [Reported] [facility] Work Phone: 11-28-2024 Functional status Ambulates [facility] Work Phone: 11-27-2024 Functional status Standard [facility] Work Phone: 08-14-2022 Functional status Activity Abili ty [facility] System Work Phone: 08-13-2022 Functional status Patient Activi ty Chair [facility] Work Phone: 08-12-2022 Functional status Rolling Walker [facility] Work Phone: 04-11-2022 Functional status Ambulates [facility] Work Phone: Functional observable [facility] [place]: NEGATED: Highlighted row Functional performance Functional status health issues are not documented Disease [facility]-Cristina grin Work Phone: Mental Status Date Assessment Result Facility 11-28-2024 Cognitive function Voice/Name [facility] Work Phone: 11-26-2024 Cognitive function Level Of Cons ciousness Awake;Alert;Appropriate ;Follows Commands [facility] Work Phone: 08-14-2022 Cognitive function Voice/Name [facility] Work Phone: 08-13-2022 Cognitive function Appropriate;Cooperativ e [facility] Work Phone: 07-31-2022 Cognitive functi ons :01 [facility] 04-11-2022 Cognitive function Voice/Name;To uch/Shakin g;Light Pain;Deep Pain [facility] Work Phone: NEGATED: Highlighted row Cognitive function [Interpretation] Cognitive status health issues are not documented Disease [facility] Work Phone: Clinical Notes 06-23-2020 to 04-02-2025 Cynthia Booth, PharmD - 04/02/2025 1:00 PM EDTAssessment & Plan Note - Tess Ontiveros, DO - 02/24/2025 10:30 AM EDTTess Ontiveros, DO - 02/24/2025 10:30 AM EDTPatient Instructions Note Date & Type Note Facility 04-02-2025 History of Presen t illness Narrative Patient Assistance for Lantus, Humalog, Januvia approved through 12/02/25. Will have to be renewed prior to that date to prevent lapse in coverage. Medication(s) will be received at no cost to [facility] Patient is sent at the request of Pramod Richardson* for my opinion regarding diabetes. My recommendations below will be communicated back to the requesting provider by way of shared medical record. Recommendations: Increase Lantus to 42 units once daily in the morning, Humalog 12 units plus sliding scale with meals Continue Januvia 100mg daily Continue Freestyle Mikala 3 monitoring Requests close follow-up in 2 weeks. Worried about recent glucose elevation Subjective Past Medical History: Patient Active Problem List Diagnosis Cognitive deficits Lymphedema Peripheral neuropathy Spinal stenosis of lumbar region Type 2 diabetes mellitus, with long-term current use of insulin Vitamin D deficiency HTN (hypertension), benign Recurrent major depressive disorder, in full remission Morbid obesity with body mass index (BMI) of 40.0 to 44.9 in adult (Multi) Fatty liver History of colon polyps Anti-TPO antibodies present Arteriosclerosis of coronary artery Lumbar radiculopathy Alexis's thyroiditis Multiple thyroid nodules Neurogenic claudication due to lumbar spinal stenosis Allergic rhinitis Alternating exotropia with V pattern Bilateral renal cysts Carpal tunnel syndrome Congenital anomaly of cerebrovascular system (HHS-HCC) CI (convergence insufficiency) Difficulty in walking Disorder of rotator cuff Dry eye syndrome Glaucoma suspect of both eyes Duodenal ulcer Dysarthria Edema of both lower extremities Gastroesophageal reflux disease 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 Hyperlipidemia Left breast lump Leg weakness, bilateral Mixed stress and urge urinary incontinence Migraines Myopia Parkinsons disease (Multi) Primary insomnia Primary osteoarthritis of both hips Pulmonary embolism Right rotator cuff tear Scoliosis, congenital Pseudarthrosis following spinal fusion Sprain of shoulder, right Status post total right knee replacement Trochanteric bursitis of right hip Recurrent UTI Delayed emergence from anesthesia Deep vein thrombosis (DVT) of lower extremity SVT (supraventricular tachycardia) Eosinophilic esophagitis History of ST elevation myocardial infarction (STEMI) Diastolic dysfunction Ischemic cardiomyopathy Gout of foot Interim: Tristen Gomez is a 74 y.o. female presents today for follow up visit with grzegorz PharmD for Type 2 Diabetes Mellitus. Last seen by myself on 12/11/24 where patient was instructed to continue current regimen. Discussed recent AR and risks-benefits of starting SGLT2i. Patient went to ED on 12/23 for leg swelling. Negative for DVT. Had knee replacement on that side. Will schedule appointment to follow-up with surgeon. Discussed benefits of SGLT2i therapy including reduced risk of CV , renal protection. Discussed potential harms including flare up of recurrent UTIs, dehydration with insufficient oral intake. Patient would like to discuss medication with assistant infant toddler teacher before starting. If she opts to begin SGLT2i, will need to adjust insulin doses. Patient sees urologist at [facility] for recurrent UTI. On methenamine. Appetite and thirst decreased since hospitalization. BG in the 200s. Been crazy. Thinks it is because of the heat Moved and lost 90 days of Januvia. Still taking it. Wants script sent from Some vaginal discomfort recently. Wonders if she has another UTI. Needs to reach out to uro-rn acute dialysis Patient Assistance Screening (VAF) Patient verbally reports monthly or yearly income which is less than 400% federal poverty level Application for program has been submitted for the following medications: Lantus, Humalog Patient aware this process may take up to 2 weeks once income documents have been sent to the team. If approved, medication must be filled through [facility] and may be picked up or mailed to patient. If approved, medication will be billed through insurance, and patient assistance team will pay the copay. This will result in a $0 copay for the patient. Counseled patient on mechanism of action, side effects, contraindications, and what to do if the patient misses a dose. All patients questions were answered. Diabetes Pharmacotherapy: Lantus 38 units every morning Humalog 10 units with meals plus SS2 TID Average dose 10-18 units Januvia 100mg daily Adherence: denies non-adherence Previously trialed meds: Metformin- attacking her organs Jardiance- irritability Social: Current diet: on average, 3 meals per day Went to classes for diet. Breakfast - two hard cooked eggs. Once in a while bigger breakfast. Lunch - Dinner - Snack - Fluids - Not eating and drinking normally. Pushing fluids. Tea from a powder. Does not make as strong as she is supposed to. Honey. Does not want to eat. 2 hard cooked eggs and mixture of tea. Protein and a vegetable. Spinach. Fresh. Current exercise: Running around house, store. Exercise every day Allergies: Aspirin, Ciprofloxacin, Cyclobenzaprine, Empagliflozin, Erythromycin, Hydrocodone, Tramadol, Baclofen, Cat dander, Adhesive, Adhesive tape-silicones, Capsaicin, Carbidopa-levodopa, Chlorhexidine, Codeine, Gluten, Hibiclens [chlorhexidine gluconate], Lysine, Meperidine, Nitrofurantoin, Sulfa (sulfonamide antibiotics), and Trimethoprim Medication list: Current Outpatient Medications Medication Instructions aspirin 81 mg, oral, Daily Blood glucose monitoring meter Use to test blood sugar up to 3 times daily as directed blood pressure monitor kit Use to check blood pressure once daily blood sugar diagnostic (OneTouch Verio test strips) strip 1 each, miscellaneous, 4 times daily before meals and nightly blood-glucose sensor (FreeStyle Mikala 3 Plus Sensor) device For continuous glucose monitoring. Garcia every 15 days blood-glucose sensor (FreeStyle Mikala 3 Sensor) device For continuous glucose monitoring. Garcia every 15 days carboxymethylcellulose (Refresh Tears) 0.5 % ophthalmic solution 1 drop, As needed carvedilol (COREG) 3.125 mg, oral, 2 times daily cholecalciferol (VITAMIN D-3) 25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 units To continue Januvia 100mg once daily Farxiga can cause euglycemic DKA with poor oral intake Ozempic is contraindicated with a personal or family history of medullary thyroid cancer To obtain blood tests before the next appointment To continue the use of the FreeStyle Mikala 3+ CGM for the intensive glucose monitoring due to the dynamic nature of insulin requirements, the narrow therapeutic index of insulin and the potentially fatal consequences of treatment Counseled that the time in range should be >70% and thus you are at goal For follow up in April as scheduled documented in this encounter [facility] Work Phone: 02-03-2025 History of Presen t illness Narrative Images from the original note were not included. Subjective Tristen Gomez is a 74 y.o. female who presents for follow up for Type 2 diabetes mellitus. The initial diagnosis of diabetes was made at age 43 yeras. 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 She has not been on thyroid replacement therapy. She states that she was seeing ENT for bilateral thyroid nodules. She had stent placed to LAD in November for STEMI. She is in cardiac rehab until March. She developed swelling to bilateral legs five days ago. Known complications due to diabetes included peripheral neuropathy, obesity and CAD. Cardiovascular risk factors include advanced age (older than 55 for men, 65 for women), diabetes mellitus, hypertension, and obesity (BMI >= 30 kg/m2). The patient is on an ALEXANDER inhibitor or angiotensin II receptor carlos. The patient has not been previously hospitalized due to diabetic ketoacidosis. Current symptoms/problems include none. Her clinical course has been stable. Current diabetes regimen is as follows: Lantus 38 units subcutaneous every morning Humalog 10 units TID AC Januvia 100mg once daily The patient is currently checking the blood glucose. Patient is using: continuous glucose monitor Hypoglycemia frequency: 1% Hypoglycemia awareness: Yes Exercise: denies MEALS: will see logging supervisor; lactose intolerant, gluten intolerant Breakfast - 2 hard cooked eggs, granola bar prior to cardiac rehab Lunch - varies Dinner - stuffed peppers Snacks before bed - protein Beverages - Lindsay tea with honey Review of Systems Constitutional: Positive for appetite change. HENT: Positive for trouble swallowing. Eyes: Positive for visual disturbance. Dry eye Respiratory: Negative for shortness of breath. Cardiovascular: Positive for leg swelling. Negative for chest pain. Musculoskeletal: Positive for back pain and myalgias. All other systems reviewed and are negative. Objective BP 124/68 Pulse 83 Ht 1.676 m (5' 6) Wt 114 kg (252 lb) BMI 40.67 kg/m Physical Exam Vitals and nursing note reviewed. Constitutional: General: She is not in acute distress. Appearance: Normal appearance. She is obese. HENT: Head: Normocephalic and atraumatic. Nose: Nose normal. Mouth/Throat: Mouth: Mucous membranes are moist. Eyes: Extraocular Movements: Extraocular movements intact. Cardiovascular: Rate and Rhythm: Normal rate and regular rhythm. Pulmonary: Effort: Pulmonary effort is normal. Breath sounds: Normal breath sounds. Musculoskeletal: General: Normal range of motion. Right lower leg: Edema present. Left lower leg: Edema present. Right foot: Normal range of motion. No deformity, bunion or Charcot foot. Left foot: Normal range of motion. No deformity, bunion or Charcot foot. Feet: Right foot: Skin integrity: Skin integrity normal. No ulcer, blister, skin breakdown or erythema. Toenail Condition: Right toenails are normal. Left foot: Skin integrity: Skin integrity normal. No ulcer, blister, skin breakdown or erythema. Toenail Condition: Left toenails are normal. Neurological: Mental Status: She is alert and oriented to person, place, and time. Psychiatric: Mood and Affect: Mood normal. Lab Review Lab Results Component Value Date HGBA1C 7.4 (H) 01/28/2025 GLUCOSE (mg/dL) Date Value 01/28/2025 179 (H) 11/11/2024 138 (H) Glucose (mg/dL) Date Value 08/17/2024 125 (H) 06/08/2024 140 (H) 04/24/2024 175 (H) POC HEMOGLOBIN A1c (%) Date Value 11/16/2024 7.2 (A) HEMOGLOBIN A1c (%) Date Value 01/28/2025 7.4 (H) Hemoglobin A1C (%) Date Value 08/17/2024 6.9 (H) 02/25/2024 6.4 (H) 10/21/2023 6.3 (H) CARBON DIOXIDE (mmol/L) Date Value 01/28/2025 22 11/11/2024 29 Bicarbonate (mmol/L) Date Value 08/17/2024 28 06/08/2024 26 04/24/2024 25 UREA NITROGEN (BUN) (mg/dL) Date Value 01/28/2025 13 11/11/2024 14 Urea Nitrogen (mg/dL) Date Value 08/17/2024 16 06/08/2024 15 04/24/2024 37 (H) Creatinine (mg/dL) Date Value 08/17/2024 0.82 06/08/2024 0.79 04/24/2024 1.02 CREATININE (mg/dL) Date Value 01/28/2025 0.86 11/11/2024 0.74 Lab Results Component Value Date TSH 2.63 01/28/2025 THYROIDPAB 151 (H) 10/21/2023 Lab Results Component Value Date TSH 2.63 01/28/2025 THYROIDPAB 151 (H) 10/21/2023 Imaging Thyroid Ultrasound 07/29/2023 FINDINGS: Right thyroid lobe: 1.7 x 1.9 x 4.3 cm (AP x TRV x SAG). The right thyroid lobe is normal in size and the parenchyma has normal homogeneous echogenicity. Left thyroid lobe: 1.4 x 1.8 x 4.6 cm (AP x TRV x SAG). The left thyroid lobe is normal in size and the parenchyma has normal homogeneous echogenicity. Thyroid isthmus AP diameter: 0.3 cm Nodule 1: Location: Right mid thyroid lobe Size: 1.4 x 1.0 x 1.2 cm (AP x TRV x SAG) Composition: Solid Echogenicity: Isoechoic Margin: Smooth Echogenic foci: None ACR total points: 3 Nodule 2: Location: Left lower thyroid lobe Size: 0.9 x 0.9 x 0.7 cm (AP x TRV x SAG) Composition: Solid Echogenicity: Isoechoic Margin: Smooth Echogenic foci: Rim calcifications are present ACR total points: 5 Other findings None Impression Nodule 1: ACR TI-RADS 2017 Category: TR3. Based on ACR TI-RADS criteria, no follow-up is necessary. Nodule 2: ACR TI-RADS 2017 Category: TR4. Based on ACR TI-RADS criteria, no follow-up is necessary. Health Maintenance: Foot Exam: February 24, 2024 Eye Exam: September 17, 2024; December 2024 Urine Albumin: October 21, 2023 CGM Interpretation 14 day CGM download was reviewed in detail as documented above and will be attached to chart. A minimum of 72 hours of glucose data was used to inform the management plan outlined below. Sufficient data to analyze: Yes; CGM active 93% of the time 22% of values is above target range, which is at goal. 71% of values is spent in target range, and thus at goal 1% of values is spent with hypoglycemia, and thus at goal Assessment/Plan 74 year old female presents for follow up for type II DM. Her blood pressure is at goal. She also has positivity for anti-TPO but has not been on thyroid replacement therapy. Type 2 diabetes mellitus, with long-term current use of insulin (Multi) To continue Lantus 38 units subcutaneous every morning To increase Humalog 10 units before every meal Please commence an insulin sliding scale with before meals as follows: 150-200mg/dL - 2 units 201-250mg/dL - 4 units 251-300 mg/dL - 6 untis 301-350mg/dL - 8 units >351mg/dL - 10 units To continue Januvia 100mg once daily Farxiga can cause euglycemic DKA with poor oral intake Ozempic is contraindicated with a personal or family history of medullary thyroid cancer To obtain blood tests before the next appointment To continue the use of the FreeStyle Mikala 3+ CGM for the intensive glucose monitoring due to the dynamic nature of insulin requirements, the narrow therapeutic index of insulin and the potentially fatal consequences of treatment Counseled that the time in range should be >70% and thus you are at goal For follow up in April as scheduled documented in this encounter [facility] Work Phone: 02-03-2025 Instructions Cat Mathews MD - 02/03/2025 8:45 AM EDT Thank you for choosing [facility] for your health care needs. If you have any questions, concerns or medical needs, please feel free to contact our office at . Please ensure you complete your blood work one week before the next scheduled appointment. To continue Lantus 38 units subcutaneous every morning To increase Humalog 10 units before every meal Please commence an insulin sliding scale with before meals as follows: 150-200mg/dL - 2 units 201-250mg/dL - 4 units 251-300 mg/dL - 6 untis 301-350mg/dL - 8 units >351mg/dL - 10 units To continue Januvia 100mg once daily Farxiga can cause euglycemic DKA with poor oral intake Ozempic is contraindicated with a personal or family history of medullary thyroid cancer To obtain blood tests before the next appointment To continue the use of the FreeStyle Mikala 3+ CGM for the intensive glucose monitoring due to the dynamic nature of insulin requirements, the narrow therapeutic index of insulin and the potentially fatal consequences of treatment Counseled that the time in range should be >70% For follow up in April as scheduled documented in this encounter [facility] Work Phone: 01-19-2025 History of Presen t illness Narrative Chief Complaint: Follow-up History Of Present Illness: Tristen Gomez is a 74 y.o. female returns follow-up. Patient had recent episode of STEMI chest pain found to have proximal LAD occlusion requiring stent placement for chest pain. Echo showed EF of 55 5%. She has been chest pain-free. She was treated with aspirin and Plavix. She is complaining of severe myalgias and pain since being on atorvastatin. Blood pressures have been better controlled at home. Most recent labs have been acceptable. She is does complain of right knee swelling around the area where she had a previous knee replacement. Patient is participating in cardiac rehab. Last Recorded Vitals: Vitals: 01/19/25 1146 BP: 147/82 Pulse: 89 SpO2: 96% Weight: 111 kg (245 lb) Height: 1.676 m (5' 6) Review of Systems ROS Allergies: Aspirin, Ciprofloxacin, Cyclobenzaprine, Empagliflozin, Erythromycin, Hydrocodone, Tramadol, Baclofen, Cat dander, Adhesive, Adhesive tape-silicones, Capsaicin, Carbidopa-levodopa, Chlorhexidine, Codeine, Gluten, Hibiclens [chlorhexidine gluconate], Lysine, Meperidine, Nitrofurantoin, Sulfa (sulfonamide antibiotics), and Trimethoprim Outpatient Medications: Current Outpatient Medications Medication Instructions aspirin 81 mg, Daily Blood glucose monitoring meter Use to test blood sugar up to 3 times daily as directed blood pressure monitor kit Use to check blood pressure once daily blood sugar diagnostic (OneTouch Verio test strips) strip 1 each, miscellaneous, 4 times daily before meals and nightly blood-glucose meter (OneTouch Ultra2 Meter) misc 1 each, miscellaneous, 6 times daily blood-glucose sensor (FreeStyle Mikala 3 Plus Sensor) device For continuous glucose monitoring. Garcia every 15 days blood-glucose sensor (FreeStyle Mikala 3 Sensor) device For continuous glucose monitoring. Garcia every 15 days carboxymethylcellulose (Refresh Tears) 0.5 % ophthalmic solution 1 drop, As needed carvedilol (COREG) 3.125 mg, 2 times daily cholecalciferol (VITAMIN D-3) 25 mcg, Daily clopidogrel (PLAVIX) 75 mg, Daily cranberry conc-ascorbic acid 300-100 mg capsule Take by mouth. cyanocobalamin (VITAMIN B-12) 1,000 mcg, Daily FreeStyle Mikala 3 Casa mis Use as instructed gabapentin (NEURONTIN) 600 mg, oral, Daily insulin lispro (HumaLOG) 100 unit/mL pen Inject 10 units plus sliding scale three times daily with meals. Max daily dose 60 units. lancets (OneTouch Delica Plus Lancet) 33 gauge misc 1 each, miscellaneous, 4 times daily before meals and nightly lancets (OneTouch UltraSoft Lancets) misc 1 each, miscellaneous, 4 times daily before meals and nightly Lantus Solostar U-100 Insulin 38 Units, subcutaneous, Every morning, Take as directed per insulin instructions. losartan (COZAAR) 25 mg, Daily methenamine hippurate (HIPREX) 1 g, 2 times daily multivitamin tablet 1 tablet, Daily nitroglycerin (NITROSTAT) 0.4 mg, sublingual, Every 5 min PRN, May repeat dose every 5 minutes for up to 3 doses total. omeprazole (PRILOSEC) 40 mg, oral, 2 times daily before meals, Do not crush or chew. OneTouch Ultra Test strip USE TO TEST BLOOD SUGAR FOUR TIMES A DAY BEFORE MEALS probenecid (BENEMID) 500 mg, oral, Daily rosuvastatin (CRESTOR) 20 mg, oral, Daily SITagliptin phosphate (JANUVIA) 100 mg, Daily TechLITE Pen Needle 32 gauge x 5/32 needle 1 each, subcutaneous, 4 times daily before meals and nightly Physical Exam: General: No acute distress, A&O x3, obese female Skin: Warm and dry Neck: JVD is not elevated ENT: Moist mucous membranes no lesions appreciated Pulmonary: CTAB Cards: Regular rate rhythm, no murmurs gallops or rubs appreciated normal S1-S2 Abdomen: Soft nontender nondistended Extremities: No edema or cyanosis Psych: Appropriate mood and affect Last Labs: CBC - Lab Results Component Value Date WBC 7.6 01/14/2025 HGB 13.9 01/14/2025 HCT 42.4 01/14/2025 MCV 94.0 01/14/2025 PLT 286 01/14/2025 CMP - Lab Results Component Value Date CALCIUM 9.5 11/11/2024 PROT 6.9 11/11/2024 ALBUMIN 3.9 11/11/2024 AST 20 11/11/2024 ALT 21 11/11/2024 ALKPHOS 112 11/11/2024 BILITOT 0.4 11/11/2024 LIPID PANEL - Lab Results Component Value Date CHOL 140 10/21/2023 TRIG 120 10/21/2023 HDL 45.8 10/21/2023 CHHDL 3.1 10/21/2023 LDLF 84 03/20/2023 VLDL 24 10/21/2023 NHDL 94 10/21/2023 RENAL FUNCTION PANEL - Lab Results Component Value Date GLUCOSE 138 (H) 11/11/2024 NA 142 11/11/2024 K 4.4 11/11/2024 CL 103 11/11/2024 CO2 29 11/11/2024 ANIONGAP 10 11/11/2024 BUN 14 11/11/2024 CREATININE 0.74 11/11/2024 CALCIUM 9.5 11/11/2024 ALBUMIN 3.9 11/11/2024 Lab Results Component Value Date HGBA1C 7.2 (A) 11/16/2024 Last Cardiology Tests: ECG: Encounter Date: 12/17/24 ECG 12 lead (Clinic Performed) Result Value Ventricular Rate 79 Atrial Rate 79 AK Interval 126 QRS Duration 86 QT Interval 388 QTC Calculation(Bazett) 444 R [place] -29 T [place] 26 QRS Count 13 Q Onset 214 P Onset 151 P Offset 189 T Offset 408 QTC Fredericia 425 Narrative Normal sinus rhythm Normal ECG When compared with ECG of 24-APR-2024 09:20, Sinus rhythm has replaced Ectopic atrial rhythm Confirmed by Kalpesh Tate ([id number]) on 12/17/2024 5:53:18 PM Echo: No results found for this or any previous visit from the past 1095 days. Assessment and Plan 1. CAD/STEMI: Recent event with occlusion of the proximal LAD status post stent placement. Chest pain-free today. Post AR EF of 50 to 55%. Ironically patient on coronary CTA in 2023 which showed mild nonobstructive disease at which time she was placed on Lipitor. - Continue aspirin and Plavix for least 1 year -Switch atorvastatin to rosuvastatin 20 mg daily secondary to myalgias - Continue carvedilol 3.125 mg twice a day -Provide AK nitroglycerin -Complete cardiac rehab 2. Hypertension: Continue losartan 50mg. Blood pressure checks at home. 3. Prior history of DVT/PE: Most recent ultrasound of the right leg negative for DVT. 4. Sinus tachycardia: Improved. Heart rate today is 89. Blood work is within acceptable range. Continue carvedilol 3.125 mg twice a day Follow-up in 3-6 months (This note was generated with voice recognition software and may contain errors including spelling, grammar, syntax and missed recognition of what was dictated, of which may not have been fully corrected) Jodi Awan MD PhD documented in this encounter [facility] Work Phone: 12-17-2024 History of Presen t illness Narrative Chief Complaint: Follow-up s/p PCI History Of Present Illness: Tristen Gomez is a 74 y.o. female with PMHx of CAD s/p PCI with x1 SAGE to prox LAD (11/26/2024), HTN, HLD, PE, DVT, T2DM, presenting today for follow up after resent STEMI and PCI. On 11/26/24 she developed chest pain at home associated with nausea and vomiting and had her friend drive her to the nearest ED. In the ED she was noted to have ST elevation on her EKG and elevated troponin. She was given aspirin, Brilinta, heparin, morphine, and zofran and sent for heart catheterization. Heart cath revealed 95% prox stenosis of LAD with thrombus and she underwent successful PTCA/SAGE prox LAD using rob [place] 3.0 x15 mm. She reports she has been feeling well since her stent placement and is currently undergoing cardiac rehab. She denies any CP, SOB, palpitations, lightheadedness, syncope, orthopnea, PND. She has chronic edema to LLE s/p left ankle injury and surgical intervention. Last Recorded Vitals: Vitals: 12/17/24 0832 BP: 122/84 BP Location: Left arm Patient Position: Sitting Pulse: 79 Weight: 112 kg (248 lb) Past Medical History: She has a past medical history of Anti-TPO antibodies present, Anxiety, Colon polyp, Coronary artery disease, Cyst of kidney, acquired (04/16/2018), Delayed emergence from general anesthesia, Depression, Diverticulosis of colon (03/08/2021), Duodenal ulcer disease, Dysphagia, Fatty liver, GERD (gastroesophageal reflux disease), Gout, unspecified (09/20/2017), Alexis's thyroiditis, History of colonoscopy (10/28/2024), History of mammogram (03/24/2024), Hypertension, IBS (irritable bowel syndrome), Multiple thyroid nodules, Non-celiac gluten sensitivity, Peripheral neuropathy, PTSD (post-traumatic stress disorder), Pulmonary embolism, Recurrent UTI, Scoliosis, Spinal stenosis of lumbar region, and Type 2 diabetes mellitus. Past Surgical History: She has a past surgical history that includes Total knee arthroplasty (Right, 2017); Tonsillectomy; Ankle fracture surgery (Left); CT angio abdomen pelvis w and or wo IV IV contrast (09/18/2018); CT angio coronary art with heartflow if score >30% (04/11/2023); Back surgery (2019); Cataract extraction (Bilateral, 2021); Partial hysterectomy (1986); Cholecystectomy (1985); Bladder surgery (2018); Bilateral oophorectomy (Bilateral, 2018); Back surgery (2021); Colonoscopy; Cyst Removal (Right); Upper gastrointestinal endoscopy; Biceps Tenodesis (Right); and IR CVC PICC (04/21/2024). Social History: She reports that she has never smoked. She has never been exposed to tobacco smoke. She has never used smokeless tobacco. She reports that she does not drink alcohol and does not use drugs. Family History: Family History Problem Relation Name Age of Onset Coronary artery disease Mother Other (cerebrovascular accident) Mother Diabetes type II Mother Heart attack Mother Hyperlipidemia Mother Lung cancer Father Alcohol abuse Father Cancer Sister Cancer Brother Alcohol abuse Son Asthma Son Allergies: Aspirin, Ciprofloxacin, Cyclobenzaprine, Empagliflozin, Erythromycin, Hydrocodone, Tramadol, Baclofen, Cat dander, Adhesive, Adhesive tape-silicones, Capsaicin, Carbidopa-levodopa, Chlorhexidine, Codeine, Gluten, Hibiclens [chlorhexidine gluconate], Lysine, Meperidine, Nitrofurantoin, Sulfa (sulfonamide antibiotics), and Trimethoprim Outpatient Medications: Current Outpatient Medications Medication Instructions aspirin 81 mg, Daily atorvastatin (LIPITOR) 80 mg, Daily Blood glucose monitoring meter Use to test blood sugar up to 3 times daily as directed blood pressure monitor kit Use to check blood pressure once daily blood sugar diagnostic (MorphoSys Verio test strips) strip 1 each, miscellaneous, 4 times daily before meals and nightly blood-glucose meter (ThinkUpuch Ultra2 Meter) misc 1 each, miscellaneous, 6 times daily blood-glucose sensor (FreeStyle Mikala 3 Plus Sensor) device For continuous glucose monitoring. Garcia every 15 days blood-glucose sensor (FreeStyle Mikala 3 Sensor) device For continuous glucose monitoring. Garcia every 15 days carboxymethylcellulose (Refresh Tears) 0.5 % ophthalmic solution 1 drop, As needed carvedilol (COREG) 3.125 mg, 2 times daily cholecalciferol (VITAMIN D-3) 25 mcg, Daily clopidogrel (PLAVIX) 75 mg, Daily cranberry conc-ascorbic acid 300-100 mg capsule Take by mouth. cyanocobalamin (VITAMIN B-12) 1,000 mcg, Daily dapagliflozin propanediol (FARXIGA) 10 mg, Every 24 hours FreeStyle Mikala 3 Casa misc Use as instructed gabapentin (NEURONTIN) 600 mg, oral, Daily insulin glargine (LANTUS) 38 Units, subcutaneous, Every morning, Take as directed per insulin instructions. insulin lispro (HumaLOG) 100 unit/mL pen Inject 10 units plus sliding scale three times daily with meals. Max daily dose 60 units. lancets (OneTouch Delica Plus Lancet) 33 gauge misc 1 each, miscellaneous, 4 times daily before meals and nightly lancets (OneTouch UltraSoft Lancets) misc 1 each, miscellaneous, 4 times daily before meals and nightly losartan (COZAAR) 25 mg, Daily methenamine hippurate (HIPREX) 1 g, 2 times daily multivitamin tablet 1 tablet, Daily omeprazole (PRILOSEC) 40 mg, oral, 2 times daily before meals, Do not crush or chew. OneTouch Ultra Test strip USE TO TEST BLOOD SUGAR FOUR TIMES A DAY BEFORE MEALS probenecid (BENEMID) 500 mg, oral, Daily SITagliptin phosphate (JANUVIA) 100 mg, Daily TechLITE Pen Needle 32 gauge x 5/32 needle 1 each, subcutaneous, 4 times daily before meals and nightly Physical Exam: General: no acute distress, obese HEENT: EOMI, no scleral icterus. Lungs: Clear to auscultation bilaterally without wheezing, rales, or rhonchi. Cardiovascular: Regular rhythm and rate. Normal S1 and S2. No murmurs, rubs, or gallops are appreciated. JVP normal. Abdomen: Soft, nontender, nondistended. Bowel sounds present. Extremities: Warm and well perfused with equal 2+ pulses bilaterally. No edema. Neurologic: Alert and oriented x3. Last Labs: CBC - Lab Results Component Value Date WBC 8.8 11/11/2024 HGB 13.6 11/11/2024 HCT 41.1 11/11/2024 MCV 93.4 11/11/2024 PLT 347 11/11/2024 CMP - Lab Results Component Value Date CALCIUM 9.5 11/11/2024 PROT 6.9 11/11/2024 ALBUMIN 3.9 11/11/2024 AST 20 11/11/2024 ALT 21 11/11/2024 ALKPHOS 112 11/11/2024 BILITOT 0.4 11/11/2024 LIPID PANEL - Lab Results Component Value Date CHOL 140 10/21/2023 TRIG 120 10/21/2023 HDL 45.8 10/21/2023 CHHDL 3.1 10/21/2023 LDLF 84 03/20/2023 VLDL 24 10/21/2023 NHDL 94 10/21/2023 RENAL FUNCTION PANEL - Lab Results Component Value Date GLUCOSE 138 (H) 11/11/2024 NA 142 11/11/2024 K 4.4 11/11/2024 CL 103 11/11/2024 CO2 29 11/11/2024 ANIONGAP 10 11/11/2024 BUN 14 11/11/2024 CREATININE 0.74 11/11/2024 CALCIUM 9.5 11/11/2024 ALBUMIN 3.9 11/11/2024 Lab Results Component Value Date HGBA1C 7.2 (A) 11/16/2024 Last Cardiology Tests: ECG: ECG 12 lead 12/17/2024 NSR ventricular rate of 79 Echo: TTE 11/30/2024 1.0Normal LV size and thickness. Severe apical hypokinesis and anterior septal hypokinesis with EF 50%. 2. Normal right ventricle 3. Trivial mitral valve insufficiency 4. Trivial aortic valve insufficiency 5. Pulmonic valve not well-visualized 6. Aortic root not well-visualized 7. No pericardial effusion TTE 04/04/2023 1. Left ventricular systolic function is normal with a 55-60% estimated ejection fraction. 2. Spectral Doppler shows an impaired relaxation pattern of left ventricular diastolic filling. 3. LV false tendon present. 4. RVSP within normal limits. Cath: [facility] 11/26/2024 ([facility]) 95% prox stenosis of LAD with thrombus. Successful PTCA/SAGE prox LAD using rob [place] 3.0 x15 mm Stress Test: No results found for this or any previous visit from the past 1095 days. Cardiac Imaging: Holter monitor 06/02/2024 The predominant rhythm during this Holter recording is sinus rhythm with minimum heart rate of 58 bpm, maximum heart rate of 132 bpm, and average heart rate of 102 bpm. No episodes of atrial fibrillation. Brief episodes of SVT are present. No episodes of high-grade AV block. No ventricular tachycardias. CT cardiac scoring wo IV contrast 04/11/2023 1. Right dominant system. 2. Normal coronary anatomy with mild nonobstructive coronary arterial disease. 3. CT FFR revealed no significant fractional flow changes. 4. Calcium score 9.23 Left main: 0 Lad: 0 Left circumflex 9.23 RCA: 0 Total 9.23 I have personally reviewed most recent PCP, cardiology, vascular, studies and/or documentation. Assessment/Plan CAD, s/p PCI with x1 SAGE to prox LAD (11/30/2024). EKG in office today showing NSR with ventricular rate of 79bpm. She denies any chest pain today. Continue in Plavix, aspirin, and statin therapy. HFrEF, most recent echo showing EF of 50-55% (11/26/2024). She is euvolemic on exam and is now down about 3lbs since October. Continue current GDMT. HLD, 10/21/2023 LDL 70, HDL 45.8, triglycerides 120, she is on atorvastatin 80 mg daily. Goal LDL <70. Fasting labs pending to be done. HTN, well-controlled, BP 122/84 today.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 300 / 300 Balance 800 / 700 1320 / 1320 120 / 120 Lab / Micro Data 11/28/24 07:05 11/28/24 07:05 Labs: Laboratory Results - last 24 hr 11/28/24 07:05: WBC 7.8, RBC 3.76 L, Hgb 11.7 L, Hct 35.2 L, MCV 93.6, MCH 31.1,MCHC 33.2, RDW Std Deviation 44.9 H, RDW Coeff of Hugo 13.0, Plt Count 281, MPV 9.0, Immature Gran % (Auto) 0.400, Neut % (Auto) 62.6, Lymph % (Auto) 25.6, [place]% (Auto) 6.4, Eos % (Auto) 4.5, Baso % (Auto) 0.5, Absolute Neuts (auto) 4.9, Absolute Lymphs (auto) 1.99, Nucleated RBC % 0, Sodium 141, Potassium 4.1, Chloride 108, Carbon Dioxide 21.7, Anion Gap 12, BUN 13, Creatinine 0.79, Estim Creat Clear Calc 79.73, Est GFR (MDRD) Non-Af 79, BUN/Creatinine Ratio 16.8, Glucose 166 H, Calcium 9.2 11/28/24 08:29: POC Glucose 174 H Rhythm Strip Rhythm Strip: Sinus Rhythm Cardiology Labs/Tests 11/28/24 07:05: WBC 7.8, RBC 3.76 L, Hgb 11.7 L, Hct 35.2 L, MCV 93.6, MCH 31.1,MCHC 33.2, Plt Count 281, MPV 9.0, Immature Gran % (Auto) 0.400, Neut % (Auto) 62.6, Lymph % (Auto) 25.6, [place] % (Auto) 6.4, Eos % (Auto) 4.5, Baso % (Auto) 0.5, Absolute Neuts (auto) 4.9, Nucleated RBC % 0, Sodium 141, Potassium 4.1, Chloride 108, Carbon Dioxide 21.7, Anion Gap 12, BUN 13, Creatinine 0.79, Est GFR (MDRD) Non-Af 79, BUN/Creatinine Ratio 16.8, Glucose 166 H, Calcium 9.2 Rhythm: EKG: ECHO: Stress Test: Cardiac Cath: PCI: CT Surgery: Holter monitor: EPS: PPM: CXR: Chest CT Scan: Physical Exam Narrative Comfortable. No distress. Heart sounds 1 and 2 on normal. No murmurs or rubs. Chest clear to auscultation bilaterally. Alert oriented x 3. No ankle edema. Assessment & Plan Assessment/Plan (1) ST elevation (STEMI) myocardial infarction involving left anterior descending coronary artery: PLAN: Status post SAGE to the proximal LAD. Continue aspirin. Clopidogrel. (2) Coronary artery disease: PLAN: Aspirin, clopidogrel, beta-blockers, statins. (3) Hypertension: QUALIFIERS: Hypertension type: unspecified Qualified Code(s): I10- Essential (primary) hypertension PLAN: Beta-blockers and ARB's. (4) Grade I diastolic dysfunction: PLAN: Started on SGLT2 inhibitor. PLAN: Plan Okay to discharge home from cardiology standpoint. 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 11/28/24 1051 <Electronically signed by Saurav Arellano MD> Cosigner Signature (if applicable): CC: ~ Signed [facility] Work Phone: 1(891) 213-489503-08-2025 Discharge summary [facility] Medical Records Department [address] [place] [address] Instructions for Home/Discharge Instructions 11/28/24 1135 MR#: [id number] Acct: [id number] Name: TRISTEN GOMEZ Rep #:[id number] : 1950 74 From: Tahira De MD PCP: Dr. Aries Hill MD Status:A DM IN Discharge Instructions Diet Discharge Diet: Low fat / Low cholesterol DC O2, CPAP, BIPAP needs Home O2 Discharge instructions: No Dressing / Incision Discharge Activity: Return to Normal Activity Weight Bearing Status: Weight bearing as tolerated Dressing / Incision Call your doctor if you observe: Fever of 101 or Higher, Shortness of breath, Dizziness, Swelling in the ankles and Chest pain Follow Up Care Test Results: Test results from this visit will be discussed in further detail at your follow- up appointment, if applicable. Discharge Plan Admission Admit Date/Time: 11/26/24 14:22 Primary Reason for Your Visit: STEMI Attending Provider: Tahira De Primary Care Provider: Aries Hill Consulting Providers: Sanchez Mendez; Saurav Arellano Instructions Patient Instructions: Heart Attack Dc, Heart Attack Meds Discharge Orders/Prescriptions Prescriptions: New aspirin 81 mg Tablet,Delayed Release (Dr/Ec) 81 mg PO DAILY@0800 Qty: 30 3RF atorvastatin 80 mg Tablet 80 mg PO QHS Qty: 30 2RF clopidogrel 75 mg Tablet 75 mg PO DAILY Qty: 30 3RF carvedilol 3.125 mg Tablet 3.125 mg PO BID Qty: 60 2RF dapagliflozin propanediol [Farxiga] 10 mg Tablet 10 mg PO DAILY Qty: 30 2RF losartan 25 mg Tablet 25 mg PO DAILY Qty: 30 2RF Continued gabapentin 600 mg tablet 600 mg PO DAILY omeprazole 20 mg capsule,delayed release(DR/EC) 40 mg PO DAILY PRN (Reason: reflux) acetaminophen 500 mg tablet 1,000 mg PO Q6 PRN multivitamin Tablet 1 tab PO DAILY methenamine hippurate 1 gram tablet 1 g PO Q12H probenecid 500 mg tablet 250 mg PO Q12H Patient Comments: Per Pts Pharmacy pt has not yet filled Humalog U-100 Insulin 100 unit/mL cartridge 10 unit subcut TID Rx Instructions: plus sliding scale insulin glargine [Lantus Solostar U-100 Insulin] 100 unit/mL (3 mL) insulin pen 35 unit subcut DAILY diclofenac sodium 1 % gel 4 g topical BID PRN (Reason: Muscle/joint pain) Qty: 100 6RF Discontinued losartan 50 mg tablet 50 mg PO DAILY Qty: 90 1RF Januvia 100 mg Tablet 100 mg PO DAILY metoprolol tartrate 25 mg tablet 25 mg PO Q12H No Action cholecalciferol (vitamin D3) 10 mcg (400 unit) capsule 25 mcg PO DAILY cranberry extract 250 mg tablet 1 mg PO DAILY Patient Comments: 30,000 vitamin B complex [B Complex-Vitamin B12] Tablet 1 tab PO DAILY (DME) Handicap Placard See Rx Instructions .ROUTE .MEDSUPPLY Qty: 1 0RF Rx Instructions: As directed, length of time 3 years (DME) circaid wrap large See Rx Instructions .Route .MEDSUPPLY Qty: 2 2RF Rx Instructions: Wear daily, remove at bedtime (DME) Electronic blood pressure cuff See Rx Instructions .Route .MEDSUPPLY Qty: 1 0RF Rx Instructions: As directed (DME) blood-glucose meter [OneTouch Ultra2 Meter] Kit See Rx Instructions .Route Qty: 1 0RF Rx Instructions: As directed (DME) OneTouch Ultra Test Strip See Rx Instructions .ROUTE .MEDSUPPLY Qty: 180 6RF Rx Instructions: 6x/day (DME) lancets Misc See Rx Instructions .ROUTE .MEDSUPPLY Qty: 180 6RF Rx Instructions: 4x/day (DME) pen needle, diabetic [BD Ultra-Fine Nan Pen Needle] 32 gauge x 5/32 needle See Rx Instructions .ROUTE .MEDSUPPLY Qty: 150 6RF Rx Instructions: 5x/day Referrals / Follow Up: Saurav Arellano MD [Med Staff - Active Staff] - Within 2 Weeks Aries Hill MD [Primary Care Provider] - Within 1 Week Disposition Disposition (needs filled in before D/C Order can be placed): Home, Self Care 11/28/24 1136Tahira De MD CC: Dr. Sanchez Mendez DO; Dr. Saurav Arellano MD; Dr. Aries Hill MD~ Signed [facility]03-08-2025 [facility] Medical Records Department [address] [place] [address] Discharge Summary 11/28/24 1136 MR#: [id number] Acct: [id number] Name: TRISTEN GOMEZ Rep #: [id number] : 1950 74 From: Tahira De MD PCP: Dr. Aries Hill MD Status:DIS IN [facility] Prov[facility] Date of Admission: 11/26/24 Date of Discharge: 11/28/24 Primary Care Physician: Dr. Aries Hill MD Consultations 11/26/24 14:22 Consult: Cardiology Routine Consulting Provider: Saurav Arellano Reason for Consult: STEMI s/p cardiac cath EMERGENT Consult: No MD Notified: Yes Date Notified: 11/26/24 Time Notified: 14:26 Method of Notification: ED Physician Initiated Comments:: cardiology already aware Reason For Visit: chest pain Diagnosis Discharge Diagnosis (1) ST elevation (STEMI) myocardial infarction involving left anterior descending coronary artery: Status: Acute Code(s): I21.02 - ST elevation (STEMI) myocardial infarction involving left anterior descending coronary artery (2) Coronary artery disease: Status: Acute Code(s): I25.10 - Atherosclerotic heart disease of [place] coronary artery without angina pectoris (3) Hypertension: Status: Chronic Code(s): I10 - Essential (primary) hypertension Qualifiers: Hypertension type: unspecified Qualified Code(s): I10 - Essential (primary) hypertension (4) Grade I diastolic dysfunction: Status: Acute Code(s): I51.89 - Other ill-defined heart diseases Plan #STEMI s/p cardiac cath * Patient admitted with a complaint of chest pain which lasted about 20 minutes prior to admission. She had ST elevation in leads V1 and V2 on admission was sent emergently to the [facility]. * Had cardiac cath which showed 95% proximal LAD occlusion with thrombus. She had successful PTCA with drug-eluting stent insertion to the proximal LAD. * Place patient on aspirin and plavix as well as high intensity statin. To be on aspirin indefinitely and Brilinta for at least 6 months per cardiology. * 2D echo showed EF of 50%, with anterior septal hypokinesis and severe apical hypokinesis and stage I diastolic dysfunction. * Type 2 diabetes mellitus with neuropathy: * On Lantus 25 units daily as well as Januvia. Was on gabapentin. * insulin sliding scale. Accuchecks ACHS. * Follows with endocrinology. #Hypertension: On losartan. Will likely benefit from addition of beta-carlos in light of STEMI #GERD: on PPI. #History of Alexis thyroiditis * has a history of positive thyroid antibodies with normal TSH * follow with endocrinology on outpatient basis. * #DVT prophylaxis: SCDs CODE STATUS: Full code Disposition: transfer out of ICU to PCU Medications at Discharge Home Medications cholecalciferol (vitamin D3) 10 mcg (400 unit) capsule 25 mcg PO DAILY Check with primary doctor 07/06/21 gabapentin 600 mg tablet 600 mg PO DAILY Check with primary doctor 07/06/21 vitamin B complex (B Complex-Vitamin B12 tablet) 1 tab PO DAILY supplement 09/18/21 multivitamin 1 tab PO DAILY supplement 08/03/22 cranberry extract 250 mg tablet 1 mg PO DAILY Check with primary doctor 08/20/22 circaid wrap #2 ea 09/03/22 acetaminophen 500 mg tablet 1,000 mg PO Q6 PRN 11/28/22 omeprazole 20 mg capsule,delayed release 40 mg PO DAILY PRN reflux 11/28/22 Handicap Placard #1 ea 12/10/22 blood-glucose meter (OneTouch Ultra2 Meter kit) #1 ea 01/18/23 Electronic blood pressure cuff #1 ea 05/20/23 diclofenac sodium 1 % topical gel 4 g topical BID PRN Muscle/joint pain #100 grams 06/18/23 blood sugar diagnostic (OneTouch Ultra Test strips) #180 ea 08/05/23 lancets #180 ea 08/05/23 pen needle, diabetic 32 gauge x 5/32 (BD Ultra-Fine Nan Pen Needle) #150 ea 09/12/23 insulin glargine 100 unit/mL (3 mL) subcutaneous pen (Lantus Solostar U-100 Insulin) 35 unit subcut DAILY DM 11/26/24 insulin lispro 100 unit/mL subcutaneous cartridge (Humalog U-100 Insulin) 10 unit subcut TID diabetes 11/26/24 methenamine hippurate 1 gram tablet 1 g PO Q12H 11/26/24 probenecid 500 mg tablet 250 mg PO Q12H 11/26/24 aspirin 81 mg tablet,delayed release 81 mg PO DAILY@0800 #30 tabs 11/28/24 atorvastatin 80 mg tablet 80 mg PO QHS #30 tabs 11/28/24 carvedilol 3.125 mg tablet 3.125 mg PO BID #60 tabs 11/28/24 clopidogrel 75 mg tablet 75 mg PO DAILY #30 tabs 11/28/24 dapagliflozin propanediol 10 mg tablet (Farxiga) 10 mg PO DAILY #30 tabs 11/28/24 losartan 25 mg tablet 25 mg PO DAILY #30 tabs 11/28/24 Hospital Course Operations None Procedures 2-D Echocardiogram and Cardiac catheterization Summary of Care Provided Minutes Spent on Discharge: 48 Hospital Course: TRISTEN GOMEZ, is a 74 F with a past medical history as outlined was admitted through the ED on 11/26/2024 with a complaint of chest pain. He had a past medical history of diabetes and hypertension as well (more content not included)...[facility]03-08-2025 Progress note [facility] Medical Records Department [address] [place] [address] Progress Note - Cardiology 11/28/24 1050 MR#: [id number] Acct: [id number] Name: TRISTEN GOMEZ TOSHIA Rep #:[id number] : 1950 74 From: Saurav Arellano MD PCP: Dr. Aries Hill MD Status:A DM IN Location: [place] [address] Subjective Subjective Denies any complaints. Ambulating. Objective Data Vital Signs: Vital Signs Temp Pulse Resp BP Pulse Ox O2 Del Method 97.8 F 85 16 133/88 H 99 Room Air 11/28/24 08:32 11/28/24 08:32 11/28/24 08:32 11/28/24 08:32 11/28/24 08:32 11/28/24 08:40 Oxygen Delivery Method Room Air Weight: 255 lb 1.197 oz Body Mass Index (BMI) 41.1 Intake & Output: Intake and Output for Last 24 Hours 11/26/24 11/27/24 11/28/24 23:59 23:59 23:59 Intake Total 800 / 800 1620 / 1620 120 / 120 Output Total 0 / 100 300 / 300 Balance 800 / 700 1320 / 1320 120 / 120 Lab / Micro Data 11/28/24 07:05 11/28/24 07:05 Labs: Laboratory Results - last 24 hr 11/28/24 07:05: WBC 7.8, RBC 3.76 L, Hgb 11.7 L, Hct 35.2 L, MCV 93.6, MCH 31.1,MCHC 33.2, RDW Std Deviation 44.9 H, RDW Coeff of Hugo 13.0, Plt Count 281, MPV 9.0, Immature Gran % (Auto) 0.400, Neut % (Auto) 62.6, Lymph % (Auto) 25.6, [place]% (Auto) 6.4, Eos % (Auto) 4.5, Baso % (Auto) 0.5, Absolute Neuts (auto) 4.9, Absolute Lymphs (auto) 1.99, Nucleated RBC % 0, Sodium 141, Potassium 4.1, Chloride 108, Carbon Dioxide 21.7, Anion Gap 12, BUN 13, Creatinine 0.79, Estim Creat Clear Calc 79.73, EstGFR (MDRD) Non-Af 79, BUN/Creatinine Ratio 16.8, Glucose 166 H, Calcium 9.2 11/28/24 08:29: POC Glucose 174 H Rhythm Strip Rhythm Strip: Sinus Rhythm Cardiology Labs/Tests 11/28/24 07:05: WBC 7.8, RBC 3.76 L, Hgb 11.7 L, Hct 35.2 L, MCV 93.6, MCH 31.1,MCHC 33.2, Plt Count 281, MPV 9.0, Immature Gran % (Auto) 0.400, Neut % (Auto) 62.6, Lymph % (Auto) 25.6, [place] % (Auto)6.4, Eos % (Auto) 4.5, Baso % (Auto) 0.5, Absolute Neuts (auto) 4.9, Nucleated RBC % 0, Sodium 141,Potassium 4.1, Chloride 108, Carbon Dioxide 21.7, Anion Gap 12, BUN 13, Creatinine 0.79, Est GFR (MDRD) Non-Af 79, BUN/Creatinine Ratio 16.8, Glucose 166 H, Calcium 9.2 Rhythm: EKG: ECHO: Stress Test: Cardiac Cath: PCI: CT Surgery: Holter monitor: EPS: PPM: CXR: Chest CT Scan: Physical Exam Narrative Comfortable. No distress. Heart sounds 1 and 2 on normal. No murmurs or rubs. Chest clear to auscultation bilaterally. Alert oriented x 3. No ankle edema. Assessment & Plan Assessment/Plan (1) ST elevation (STEMI) myocardial infarction involving left anterior descending coronary artery: PLAN: Status post SAGE to the proximal LAD. Continue aspirin. Clopidogrel. (2) Coronary artery disease: PLAN: Aspirin, clopidogrel, beta-blockers, statins. (3) Hypertension: QUALIFIERS: Hypertension type: unspecified Qualified Code(s): I10- Essential (primary) hypertension PLAN: Beta-blockers and ARB's. (4) Grade I diastolic dysfunction: PLAN: Started on SGLT2 inhibitor. PLAN: Plan Okay to discharge home from cardiology standpoint. 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 11/28/24 1051 Cosigner Signature (if applicable): CC: ~ Signed [facility]03-07-2025 Progress note Author Saurav Arellano [facility] Note Date/Time November 27, 2024 11:2 2am [facility] Medical Records Department [address] [place] [address] Progress Note - Cardiology 11/27/24 1118 MR#: [id number] Acct: [id number] Name: TRISTEN GOMEZ Rep #:[id number] : 1950 74 From: Saurav Arellano MD PCP: Dr. Aries Hill MD Status:A DM IN Location: ICU ICU07-1 Subjective Subjective Doing well. No complaints. No chest pain. No shortness of breath. Objective Data Vital Signs: Vital Signs Temp Pulse Resp BP Pulse Ox O2 Del Method 97.1 F L 88 25 H 133/84 H 99 Room Air 11/27/24 09:43 11/27/24 09:43 11/27/24 09:43 11/27/24 09:43 11/27/24 09:43 11/27/24 09:43 Oxygen Delivery Method Room Air Weight: 255 lb 1.197 oz Body Mass Index (BMI) 41.1 Intake & Output: Intake and Output for Last 24 Hours 11/25/24 11/26/24 11/27/24 23:59 23:59 23:59 Intake Total 800 / 800 1040 / 1040 Output Total 0 / 100 300 / 300 Balance 800 / 700 740 / 740 Lab / Micro Data 11/27/24 03:35 11/27/24 03:35 Labs: Laboratory Results - last 24 hr 11/26/24 12:42: PT 14.1, INR 1.1, APTT 25.8 11/26/24 12:43: WBC 9.3, RBC 4.20, Hgb 13.1, Hct 39.4, MCV 93.8, MCH 31.2, MCHC 33.2, RDW Std Deviation 44.4 H, RDW Coeff of Hugo 13.0, Plt Count 285, MPV 8.9, Immature Gran % (Auto) 0.600, Neut % (Auto) 59.9, Lymph % (Auto) 30.1, [place] % (Auto) 5.9, Eos % (Auto) 3.1, Baso % (Auto) 0.4, Absolute Neuts (auto) 5.6, Absolute Lymphs (auto) 2.79, Nucleated RBC % 0, Sodium 138, Potassium 4.1, Chloride 107, Carbon Dioxide 19.0 L, Anion Gap 13, BUN 13, Creatinine 0.88, Estim Creat Clear Calc 72.16, Est GFR (MDRD) Non-Af 69, BUN/Creatinine Ratio 14.3, Glucose 180 H, Calcium 9.4, Magnesium 1.7, Troponin T High Sens 16 H 11/26/24 13:06: Activated Clotting Time 158 H 11/26/24 13:46: Activated Clotting Time 170 H 11/26/24 13:57: Activated Clotting Time 262 H 11/26/24 16:42: POC Glucose 152 H 11/27/24 03:35: WBC 9.8, RBC 3.69 L, Hgb 11.4 L, Hct 33.9 L, MCV 91.9, MCH 30.9,MCHC 33.6, RDW Std Deviation 44.5 H, RDW Coeff of Hugo 13.1, Plt Count 258, MPV 8.8, Immature Gran % (Auto) 0.400, Neut % (Auto) 69.9, Lymph % (Auto) 20.7, [place]% (Auto) 6.5, Eos % (Auto) 2.2, Baso % (Auto) 0.3, Absolute Neuts (auto) 6.8, Absolute Lymphs (auto) 2.02, Nucleated RBC % 0, Sodium 140, Potassium 3.8, Chloride 108, Carbon Dioxide 18.7 L, Anion Gap 13, BUN 12, Creatinine 0.85, Estim Creat Clear Calc 75.04, Est GFR (MDRD) Non-Af 71, BUN/Creatinine Ratio 14.1, Glucose 161 H, Hemoglobin A1c 6.8, Calcium 8.7, Total Bilirubin 0.18, AST 25, ALT 24, Alkaline Phosphatase 103, Total Protein 6.0, Albumin 3.2 L, Globulin2.8, Albumin/Globulin Ratio 1.1, Triglycerides 134, Cholesterol 128, LDL Cholesterol, Calc 59, VLDL Cholesterol 27, HDL Cholesterol 42, Cholesterol/HDL Ratio 3.03 Rhythm Strip Rhythm Strip: Sinus Rhythm Cardiology Labs/Tests 11/26/24 12:42: PT 14.1, INR 1.1, APTT 25.8 11/26/24 12:43: WBC 9.3, RBC 4.20, Hgb 13.1, Hct 39.4, MCV 93.8, MCH 31.2, MCHC 33.2, Plt Count 285, MPV 8.9, Immature Gran % (Auto) 0.600, Neut % (Auto) 59.9, Lymph % (Auto) 30.1, [place] % (Auto) 5.9, Eos % (Auto) 3.1, Baso % (Auto) 0.4, Absolute Neuts (auto) 5.6, Nucleated RBC % 0, Sodium 138, Potassium 4.1, Chloride 107, Carbon Dioxide 19.0 L, Anion Gap 13, BUN 13, Creatinine 0.88, Est GFR (MDRD) Non-Af 69, BUN/Creatinine Ratio 14.3, Glucose 180 H, Calcium 9.4, Magnesium 1.7 11/27/24 03:35: WBC 9.8, RBC 3.69 L, Hgb 11.4 L, Hct 33.9 L, MCV 91.9, MCH 30.9,MCHC 33.6, Plt Count 258, MPV 8.8, Immature Gran % (Auto) 0.400, Neut % (Auto) 69.9, Lymph % (Auto) 20.7, [place] % (Auto) 6.5, Eos % (Auto) 2.2, Baso % (Auto) 0.3, Absolute Neuts (auto) 6.8, Nucleated RBC % 0, Sodium 140, Potassium 3.8, Chloride 108, Carbon Dioxide 18.7 L, Anion Gap 13, BUN 12, Creatinine 0.85, Est GFR (MDRD) Non-Af 71, BUN/Creatinine Ratio 14.1, Glucose 161 H, Hemoglobin A1c 6.8, Calcium 8.7, Total Bilirubin 0.18, Triglycerides 134, Cholesterol 128, VLDLCholesterol 27, HDL Cholesterol 42, Cholesterol/HDL Ratio 3.03 Rhythm: EKG: ECHO: Stress Test: Cardiac Cath: PCI: CT Surgery: Holter monitor: EPS: PPM: CXR: Chest CT Scan: Radiography Diagnostic Testing: Radiology Impression Echocardiogram 11/26/24 14:26 Interpretation Summary Severe apical hypokinesis to akinesis. Anterior septal hypokinesis. Overall LVEFestimated at 50%. Stage I diastolic dysfunction. The study was technically difficult. Ordering Physician: Saurav Arellano Referring Physician: Saurav Arellano Performed By: Tabitha Espitia [facility] Physical Exam Narrative Comfortable. No distress. Heart sounds 1 and 2 on normal. No murmurs or rubs. Chest clear to auscultation bilaterally. Alert oriented x 3. No ankle edema. Assessment & Plan Assessment/Plan (1) ST elevation (STEMI) myocardial infarction involving left anterior descending coronary artery: PLAN: Status post SAGE to the proximal LAD. Continue aspirin. Clopidogrel. (2) Coronary artery disease: PLAN: Aspirin, clopidogrel, beta-blockers, statins. (3) Hypertension: QUALIFIERS: Hypertension type: unspecified Qualified Code(s): I10- Essential (primary) hypertension PLAN: Beta-blockers and ARB's. (4) Grade I diastolic dysfunction: PLAN: Start on SGLT2 inhibitor. PLAN: Plan May discharge home in the morning if continues to be hemodynamically stable. 11/27/24 1122 <Electronically signed by Saurav Arellano MD> Cosigner Signature (if applicable): CC: ~ Signed [facility] Work Phone: [phone]) 768-565203-07-2025 Progress note Author Tahira De [facility] Note Date/Time November 27, 2024 10:1 8am [facility] Medical Records Department [address] [place] [address] Progress Note 11/27/24 1005 MR#: [id number] Acct: [id number] Name: TRISTEN GOMEZ Rep #:[id number] : 1950 74 From: Tahira De MD PCP: Dr. Aries Hill MD Status:A DM IN Location: ICU ICU07-1 Subjective Subjective Patient seen and examined. She had no active complaints. She denied any fever, chills, cough, chest pain, palpitations, dizziness, nausea, vomiting or any other symptoms. Review of systems is otherwise negative. Objective Data Objective Data Vital Signs: Vital Signs Temp Pulse Resp BP Pulse Ox O2 Del Method 97.1 F L 88 25 H 133/84 H 99 Room Air 11/27/24 09:43 11/27/24 09:43 11/27/24 09:43 11/27/24 09:43 11/27/24 09:43 11/27/24 09:43 Oxygen Delivery Method Room Air Weight: 255 lb 1.197 oz Body Mass Index (BMI) 41.1 Intake & Output: Intake and Output for Last 24 Hours 11/25/24 11/26/24 11/27/24 23:59 23:59 23:59 Intake Total 800 / 800 1040 / 1040 Output Total 0 / 100 300 / 300 Balance 800 / 700 740 / 740 Lab / Micro Data 11/27/24 03:35 11/27/24 03:35 Labs: Laboratory Results - last 24 hr 11/26/24 12:42: PT 14.1, INR 1.1, APTT 25.8 11/26/24 12:43: WBC 9.3, RBC 4.20, Hgb 13.1, Hct 39.4, MCV 93.8, MCH 31.2, MCHC 33.2, RDW Std Deviation 44.4 H, RDW Coeff of Hugo 13.0, Plt Count 285, MPV 8.9, Immature Gran % (Auto) 0.600, Neut % (Auto) 59.9, Lymph % (Auto) 30.1, [place] % (Auto) 5.9, Eos % (Auto) 3.1, Baso % (Auto) 0.4, Absolute Neuts (auto) 5.6, Absolute Lymphs (auto) 2.79, Nucleated RBC % 0, Sodium 138, Potassium 4.1, Chloride 107, Carbon Dioxide 19.0 L, Anion Gap 13, BUN 13, Creatinine 0.88, Estim Creat Clear Calc 72.16, Est GFR (MDRD) Non-Af 69, BUN/Creatinine Ratio 14.3, Glucose 180 H, Calcium 9.4, Magnesium 1.7, Troponin T High Sens 16 H 11/26/24 13:06: Activated Clotting Time 158 H 11/26/24 13:46: Activated Clotting Time 170 H 11/26/24 13:57: Activated Clotting Time 262 H 11/26/24 16:42: POC Glucose 152 H 11/27/24 03:35: WBC 9.8, RBC 3.69 L, Hgb 11.4 L, Hct 33.9 L, MCV 91.9, MCH 30.9,MCHC 33.6, RDW Std Deviation 44.5 H, RDW Coeff of Hugo 13.1, Plt Count 258, MPV 8.8, Immature Gran % (Auto) 0.400, Neut % (Auto) 69.9, Lymph % (Auto) 20.7, [place]% (Auto) 6.5, Eos % (Auto) 2.2, Baso % (Auto) 0.3, Absolute Neuts (auto) 6.8, Absolute Lymphs (auto) 2.02, Nucleated RBC % 0, Sodium 140, Potassium 3.8, Chloride 108, Carbon Dioxide 18.7 L, Anion Gap 13, BUN 12, Creatinine 0.85, Estim Creat Clear Calc 75.04, Est GFR (MDRD) Non-Af 71, BUN/Creatinine Ratio 14.1, Glucose 161 H, Hemoglobin A1c 6.8, Calcium 8.7, Total Bilirubin 0.18, AST 25, ALT 24, Alkaline Phosphatase 103, Total Protein 6.0, Albumin 3.2 L, Globulin2.8, Albumin/Globulin Ratio 1.1, Triglycerides 134, Cholesterol 128, LDL Cholesterol, Calc 59, VLDL Cholesterol 27, HDL Cholesterol 42, Cholesterol/HDL Ratio 3.03 Radiography Diagnostic Testing: Radiology Impression Echocardiogram 11/26/24 14:26 Interpretation Summary Severe apical hypokinesis to akinesis. Anterior septal hypokinesis. Overall LVEFestimated at 50%. Stage I diastolic dysfunction. The study was technically difficult. Ordering Physician: Saurav Arellano Referring Physician: Saurav Arellano Performed By: Tabitha Espitia RCS Rhythm Strip Rhythm Strip: Sinus Rhythm Physical Exam Const alert, oriented x3 and no apparent distress Constitutional Narrative: class III obesity General Appearance: cooperative HEENT normocephalic, head/scalp atraumatic, hearing grossly normal bilaterally and moist oral mucous membranes Eyes PERRL, EOMs intact bilaterally and conjunctivae normal Neck no lymphadenopathy and supple Resp normal respiratory effort, normal air movement, no retractions, no use of accessory muscles and clear to auscultation bilaterally Cardio regular rate, regular rhythm, S1 normal heart sound, S2 normal heart sound and no murmurs GI normal to inspection, nondistended, normoactive bowel sounds, soft to palpation,non-tender and non-distended Extremity normal to inspection, full ROM, normal capillary refill and no clubbing, cyanosis or edema General Extremity: no tenderness to palpation of joints or extremities Skin General Skin Exam: no breakdown Neuro oriented x3, CN's II-XII intact bilaterally, moves all extremities and no focal motor deficits Sensorium / Orientation: awake and alert Motor Exam: strength 5/5 throughout Psych thought process normal, cooperative and affect normal Appearance: appropriate Assessment & Plan Assessment/Plan (1) ST elevation (STEMI) myocardial infarction: PLAN: Plan #STEMI s/p cardiac cath * Patient admitted with a complaint of chest pain which lasted about 20 minutes prior to admission. She had ST elevation in leads V1 and V2 on admission was sent emergently to the [facility]. * Had cardiac cath which showed 95% proximal LAD occlusion with thrombus. She had successful PTCA with drug-eluting stent insertion to the proximal LAD. * Place patient on aspirin and plavix as well as high intensity statin. To be on aspirin indefinitely and Brilinta for at least 6 months per cardiology. * 2D echo showed EF of 50%, with anterior septal hypokinesis and severe apical hypokinesis and stage I diastolic dysfunction. * Type 2 diabetes mellitus with neuropathy: * On Lantus 25 units daily as well as Januvia. Was on gabapentin. * insulin sliding scale. Accuchecks ACHS. * Follows with endocrinology. #Hypertension: On losartan. Will likely benefit from addition of beta-carlos in light of STEMI #GERD: on PPI. #History of Alexis thyroiditis * has a history of positive thyroid antibodies with normal TSH * follow with endocrinology on outpatient basis. * #DVT prophylaxis: SCDs CODE STATUS: Full code Disposition: transfer out of ICU to PCU Charges/Coding Visit Charges Inpatient E&M: 13571 Subs Hosp L2 11/27/24 1018 <Electronically signed by Tahira De MD> Tahira De MD Cosigner Signature (if applicable): CC: ~ Signed [facility] Work Phone: [phone] Progress note [facility] Medical Records Department [address] [place] [address] Progress Note - Cardiology 11/27/24 1118 MR#: [id number] Acct: [id number] Name: TRISTEN GOMEZ TOSHIA Rep #:[id number] : 1950 74 From: Saurav Arellano MD PCP: Dr. Aries Hill MD Status:A DM IN Location: ICU ICU07-1 Subjective Subjective Doing well. No complaints. No chest pain. No shortness of breath. Objective Data Vital Signs: Vital Signs Temp Pulse Resp BP Pulse Ox O2 Del Method 97.1 F L 88 25 H 133/84 H 99 Room Air 11/27/24 09:43 11/27/24 09:43 11/27/24 09:43 11/27/24 09:43 11/27/24 09:43 11/27/24 09:43 Oxygen Delivery Method Room Air Weight: 255 lb 1.197 oz Body Mass Index (BMI) 41.1 Intake & Output: Intake and Output for Last 24 Hours 11/25/24 11/26/24 11/27/24 23:59 23:59 23:59 Intake Total 800 / 800 1040 / 1040 Output Total 0 / 100 300 / 300 Balance 800 / 700 740 / 740 Lab / Micro Data 11/27/24 03:35 11/27/24 03:35 Labs: Laboratory Results - last 24 hr 11/26/24 12:42: PT 14.1, INR 1.1, APTT 25.8 11/26/24 12:43: WBC 9.3, RBC 4.20, Hgb 13.1, Hct 39.4, MCV 93.8, MCH 31.2, MCHC 33.2, RDW Std Deviation 44.4 H, RDW Coeff of Hugo 13.0, Plt Count 285, MPV 8.9, Immature Gran % (Auto) 0.600, Neut % (Auto) 59.9, Lymph % (Auto) 30.1, [place] % (Auto) 5.9, Eos % (Auto) 3.1, Baso % (Auto) 0.4, Absolute Neuts (auto) 5.6, Absolute Lymphs (auto) 2.79, Nucleated RBC % 0, Sodium 138, Potassium 4.1, Chloride 107, Carbon Dioxide 19.0 L, Anion Gap 13, BUN 13, Creatinine 0.88, Estim Creat Clear Calc 72.16, Est GFR (MDRD) Non-Af 69, BUN/Creatinine Ratio 14.3, Glucose 180 H, Calcium 9.4, Magnesium 1.7, Troponin T High Sens 16 H 11/26/24 13:06: Activated Clotting Time 158 H 11/26/24 13:46: Activated Clotting Time 170 H 11/26/24 13:57: Activated Clotting Time 262 H 11/26/24 16:42: POC Glucose 152 H 11/27/24 03:35: WBC 9.8, RBC 3.69 L, Hgb 11.4 L, Hct 33.9 L, MCV 91.9, MCH 30.9,MCHC 33.6, RDW Std Deviation 44.5 H, RDW Coeff of Hugo 13.1, Plt Count 258, MPV 8.8, Immature Gran % (Auto) 0.400, Neut % (Auto) 69.9, Lymph % (Auto) 20.7, [place]% (Auto) 6.5, Eos % (Auto) 2.2, Baso % (Auto) 0.3, Absolute Neuts (auto) 6.8, Absolute Lymphs (auto) 2.02, Nucleated RBC % 0, Sodium 140, Potassium 3.8, Chloride 108, Carbon Dioxide 18.7 L, Anion Gap 13, BUN 12, Creatinine 0.85, Estim Creat Clear Calc 75.04, Est GFR (MDRD) Non-Af 71, BUN/Creatinine Ratio 14.1, Glucose 161 H, Hemoglobin A1c 6.8, Calcium 8.7, Total Bilirubin 0.18, AST 25, ALT 24, Alkaline Phosphatase 103, Total Protein 6.0, Albumin 3.2 L, Rena bulin2.8, Albumin/Globulin Ratio 1.1, Triglycerides 134, Cholesterol 128, LDL Cholesterol, Calc 59,VLDL Cholesterol 27, HDL Cholesterol 42, Cholesterol/HDL Ratio 3.03 Rhythm Strip Rhythm Strip: Sinus Rhythm Cardiology Labs/Tests 11/26/24 12:42: PT 14.1, INR 1.1, APTT 25.8 11/26/24 12:43: WBC 9.3, RBC 4.20, Hgb 13.1, Hct 39.4, MCV 93.8, MCH 31.2, MCHC 33.2, Plt Count 285, MPV 8.9, Immature Gran % (Auto) 0.600, Neut % (Auto) 59.9, Lymph % (Auto) 30.1, [place] % (Auto) 5.9,Eos % (Auto) 3.1, Baso % (Auto) 0.4, Absolute Neuts (auto) 5.6, Nucleated RBC % 0, Sodium 138, Potassium 4.1, Chloride 107, Carbon Dioxide 19.0 L, Anion Gap 13, BUN 13, Creatinine 0.88, Est GFR (MDRD) Non-Af 69, BUN/Creatinine Ratio 14.3, Glucose 180 H, Calcium 9.4, Magnesium 1.7 11/27/24 03:35: WBC 9.8, RBC 3.69 L, Hgb 11.4 L, Hct 33.9 L, MCV 91.9, MCH 30.9,MCHC 33.6, Plt Count 258, MPV 8.8, Immature Gran % (Auto) 0.400, Neut % (Auto) 69.9, Lymph % (Auto) 20.7, [place] % (Auto)6.5, Eos % (Auto) 2.2, Baso % (Auto) 0.3, Absolute Neuts (auto) 6.8, Nucleated RBC % 0, Sodium 140,Potassium 3.8, Chloride 108, Carbon Dioxide 18.7 L, Anion Gap 13, BUN 12, Creatinine 0.85, Est GFR (MDRD) Non-Af 71, BUN/Creatinine Ratio 14.1, Glucose 161 H, Hemoglobin A1c 6.8, Calcium 8.7, Total Bilirubin 0.18, Triglycerides 134, Cholesterol 128, VLDLCholesterol 27, HDL Cholesterol 42, Cholesterol/HDL Ratio 3.03 Rhythm: EKG: ECHO: Stress Test: Cardiac Cath: PCI: CT Surgery: Holter monitor: EPS: PPM: CXR: Chest CT Scan: Radiography Diagnostic Testing: Radiology Impression Echocardiogram 11/26/24 14:26 Interpretation Summary Severe apical hypokinesis to akinesis. Anterior septal hypokinesis. Overall LVEFestimated at 50%. Stage I diastolic dysfunction. The study was technically difficult. Ordering Physician: Saurav Arellano Referring Physician: Saurav Arellano Performed By: Tabitha Espitia RCS Physical Exam Narrative Comfortable. No distress. Heart sounds 1 and 2 on normal. No murmurs or rubs. Chest clear to auscultation bilaterally. Alert oriented x 3. No ankle edema. Assessment & Plan Assessment/Plan (1) ST elevation (STEMI) myocardial infarction involving left anterior descending coronary artery: PLAN: Status post SAGE to the proximal LAD. Continue aspirin. Clopidogrel. (2) Coronary artery disease: PLAN: Aspirin, clopidogrel, beta-blockers, statins. (3) Hypertension: QUALIFIERS: Hypertension type: unspecified Qualified Code(s): I10- Essential (primary) hypertension PLAN: Beta-blockers and ARB's. (4) Grade I diastolic dysfunction: PLAN: Start on SGLT2 inhibitor. PLAN: Plan May discharge home in the morning if continues to be hemodynamically stable. 11/27/24 1122 Cosigner Signature (if applicable): CC: ~ Signed [facility]03-07-2025 Progress note [facility] Medical Records Department [address] [place] [address] Progress Note 11/27/24 1005 MR#: [id number] Acct: [id number] Name: TRISTEN GOMEZ TOSHIA Rep #:[id number] : 1950 74 From: Tahira De MD PCP: Dr. Aries Hill MD Status:A DM IN Location: ICU ICU07-1 Subjective Subjective Patient seen and examined. She had no active complaints. She denied any fever, chills, cough, chestpain, palpitations, dizziness, nausea, vomiting or any other symptoms. Review of systems is otherwise negative. Objective Data Objective Data Vital Signs: Vital Signs Temp Pulse Resp BP Pulse Ox O2 Del Method 97.1 F L 88 25 H 133/84 H 99 Room Air 11/27/24 09:43 11/27/24 09:43 11/27/24 09:43 11/27/24 09:43 11/27/24 09:43 11/27/24 09:43 Oxygen Delivery Method Room Air Weight: 255 lb 1.197 oz Body Mass Index (BMI) 41.1 Intake & Output: Intake and Output for Last 24 Hours 11/25/24 11/26/24 11/27/24 23:59 23:59 23:59 Intake Total 800 / 800 1040 / 1040 Output Total 0 / 100 300 / 300 Balance 800 / 700 740 / 740 Lab / Micro Data 11/27/24 03:35 11/27/24 03:35 Labs: Laboratory Results - last 24 hr 11/26/24 12:42: PT 14.1, INR 1.1, APTT 25.8 11/26/24 12:43: WBC 9.3, RBC 4.20, Hgb 13.1, Hct 39.4, MCV 93.8, MCH 31.2, MCHC 33.2, RDW Std Deviation 44.4 H, RDW Coeff of Hugo 13.0, Plt Count 285, MPV 8.9, Immature Gran % (Auto) 0.600, Neut % (Auto) 59.9, Lymph % (Auto) 30.1, [place] % (Auto) 5.9, Eos % (Auto) 3.1, Baso % (Auto) 0.4, Absolute Neuts (auto) 5.6, Absolute Lymphs (auto) 2.79, Nucleated RBC % 0, Sodium 138, Potassium 4.1, Chloride 107, Carbon Dioxide 19.0 L, Anion Gap 13, BUN 13, Creatinine 0.88, Estim Creat Clear Calc 72.16, Est GFR (MDRD) Non-Af 69, BUN/Creatinine Ratio 14.3, Glucose 180 H, Calcium 9.4, Magnesium 1.7, Troponin T High Sens 16 H 11/26/24 13:06: Activated Clotting Time 158 H 11/26/24 13:46: Activated Clotting Time 170 H 11/26/24 13:57: Activated Clotting Time 262 H 11/26/24 16:42: POC Glucose 152 H 11/27/24 03:35: WBC 9.8, RBC 3.69 L, Hgb 11.4 L, Hct 33.9 L, MCV 91.9, MCH 30.9,MCHC 33.6, RDW Std Deviation 44.5 H, RDW Coeff of Hugo 13.1, Plt Count 258, MPV 8.8, Immature Gran % (Auto) 0.400, Neut % (Auto) 69.9, Lymph % (Auto) 20.7, [place]% (Auto) 6.5, Eos % (Auto) 2.2, Baso % (Auto) 0.3, Absolute Neuts (auto) 6.8, Absolute Lymphs (auto) 2.02, Nucleated RBC % 0, Sodium 140, Potassium 3.8, Chloride 108, Carbon Dioxide 18.7 L, Anion Gap 13, BUN 12, Creatinine 0.85, Estim Creat Clear Calc 75.04, Est GFR (MDRD) Non-Af 71, BUN/Creatinine Ratio 14.1, Glucose 161 H, Hemoglobin A1c 6.8, Calcium 8.7, Total Bilirubin 0.18, AST 25, ALT 24, Alkaline Phosphatase 103, Total Protein 6.0, Albumin 3.2 L, Rena bulin2.8, Albumin/Globulin Ratio 1.1, Triglycerides 134, Cholesterol 128, LDL Cholesterol, Calc 59,VLDL Cholesterol 27, HDL Cholesterol 42, Cholesterol/HDL Ratio 3.03 Radiography Diagnostic Testing: Radiology Impression Echocardiogram 11/26/24 14:26 Interpretation Summary Severe apical hypokinesis to akinesis. Anterior septal hypokinesis. Overall LVEFestimated at 50%. Stage I diastolic dysfunction. The study was technically difficult. Ordering Physician: Saurav Arellano Referring Physician: Saurav Arellano Performed By: Tabitha Espitia RCS Rhythm Strip Rhythm Strip: Sinus Rhythm Physical Exam Const alert, oriented x3 and no apparent distress Constitutional Narrative: class III obesity General Appearance: cooperative HEENT normocephalic, head/scalp atraumatic, hearing grossly normal bilaterally and moist oral mucous membranes Eyes PERRL, EOMs intact bilaterally and conjunctivae normal Neck no lymphadenopathy and supple Resp normal respiratory effort, normal air movement, no retractions, no use of accessory muscles and clear to auscultation bilaterally Cardio regular rate, regular rhythm, S1 normal heart sound, S2 normal heart sound and no murmurs GI normal to inspection, nondistended, normoactive bowel sounds, soft to palpation,non-tender and non-distended Extremity normal to inspection, full ROM, normal capillary refill and no clubbing, cyanosis or edema General Extremity: no tenderness to palpation of joints or extremities Skin General Skin Exam: no breakdown Neuro oriented x3, CN's II-XII intact bilaterally, moves all extremities and no focal motor deficits Sensorium / Orientation: awake and alert Motor Exam: strength 5/5 throughout Psych thought process normal, cooperative and affect normal Appearance: appropriate Assessment & Plan Assessment/Plan (1) ST elevation (STEMI) myocardial infarction: PLAN: Plan #STEMI s/p cardiac cath * Patient admitted with a complaint of chest pain which lasted about 20 minutes prior to admission.She had ST elevation in leads V1 and V2 on admission was sent emergently to the [facility]. * Had cardiac cath which showed 95% proximal LAD occlusion with thrombus. She had successful PTCA with drug-eluting stent insertion to the proximal LAD. * Place patient on aspirin and plavix as well as high intensity statin. To be on aspirin indefinitely and Brilinta for at least 6 months per cardiology. * 2D echo showed EF of 50%, with anterior septal hypokinesis and severe apical hypokinesis and stage I diastolic dysfunction. * Type 2 diabetes mellitus with neuropathy: * On Lantus 25 units daily as well as Januvia. Was on gabapentin. * insulin sliding scale. Accuchecks ACHS. * Follows with endocrinology. #Hypertension: On losartan. Will likely benefit from addition of beta-carlos in light of STEMI #GERD: on PPI. #History of Alexis thyroiditis * has a history of positive thyroid antibodies with normal TSH * follow with endocrinology on outpatient basis. * #DVT prophylaxis: SCDs CODE STATUS: Full code Disposition: transfer out of ICU to PCU Charges/Coding Visit Charges Inpatient E&M: 68430 Subs Hosp L2 11/27/24 1018 Tahira De MD Cosigner Signature (if applicable): CC: ~ Signed [facility]03-06-2025 History and physical note Author Tahira [facility] Note Date/Time November 26, 2024 7:25 pm [facility] Medical Records Department [address] [place] [address] H&P Exam - Hospitalist 11/26/24 1416 MR#: [id number] Acct: [id number] Name: TRISTEN GOMEZ Rep #:[id number] : 1950 74 From: Tahira De MD PCP: Dr. Aries Hill MD Status:A DM IN Location: ICU ICU07-1 HPI - General General Date of Admission: 11/26/24 Date of Service: 11/26/24 Chief Complaint: chest pain HPI Narrative TRISTEN GOMEZ, is a 74 F with a past medical history as outlined was admitted through the ED on 11/26/2024 with a complaint of chest pain. He had a past medical history of diabetes and hypertension as well as a remote history of PE. The chest pain started about 20 minutes prior to admission and she had associated nausea and vomiting. She denied any history of heart disease and says she sees a assistant infant toddler teacher at ; she denies any history of heart issues. Review of systems otherwise negative. EKG done on admission showed ST elevationin V1 and V2 with reciprocal inferior changes. STEMI alert was called and patient was taken emergently to the [facility] after being given aspirin and Brilinta as well as heparin, morphine and Zofran. CBC done prior to the cath showed WBC of 9.3 with hemoglobin of 13.1 and platelets of 285. Initial troponin was 16. Chemistry showed potassium of 4.1 with sodium of 138, bicarb of 19 and anion gap of 13 with a creatinine of 0.88. Creatinine was 0.8, serumglucose was 180. Chest x-ray showed no acute cardiopulmonary pathology. She had cardiac cath. She was admitted to the ICU afterwards. Patient was seen in the ICU. She had no active complaints. Review of systems otherwise negative. She was hemodynamically stable. [facility] Medical History H/O Alexis thyroiditis Type 2 diabetes mellitus Breast pain, left Hemorrhoid Breast cancer screening Diabetes mellitus type 1.5 Osteoarthritis Morbid obesity with BMI of 40.0-44.9, adult Osteopenia Left upper arm pain Left shoulder pain Intertriginous dermatitis associated with moisture Chronic back pain Easy bruising Walker as ambulation aid Ambulates with cane Pulmonary embolism DVT (deep venous thrombosis) Syncope Gastric reflux Chronic cough History of stress test Hypertension History of anesthesia problem Degenerative arthritis of hip Hypertension Polyneuropathy Spinal stenosis of lumbar region Cataract fragments in right eye following surgery Herniated nucleus pulposus, L3-4 left Cubital tunnel syndrome on left Impaired gait and mobility Chronic neck pain Cervical spinal stenosis Carpal tunnel syndrome, left Cervical radiculopathy at C8 Glaucoma DM neuropathies Liver hemangioma Ulcer Alexis's thyroiditis Rheumatoid arthritis Lupus IBS (irritable bowel syndrome) Gout Cataracts, bilateral History of breast lump History of UTI Anemia Seasonal allergies Home Medications ?Medication ?Instructions ?Recorded ?Last Taken ?Type cholecalciferol (vitamin D3) 10 25 mcg PO DAILY Check with primary 07/06/21 Unknown History mcg (400 unit) capsule doctor gabapentin 600 mg tablet 600 mg PO DAILY Check with p rimary 07/06/21 Unknown History doctor vitamin B complex (B 1 tab PO DAILY supplement Unknown History Complex-Vitamin B12 tablet) sitagliptin phosphate 100 mg 100 mg PO DAILY diabetes 03/14/22 Unknown History tablet (Januvia) multivitamin 1 tab PO DAILY supplement Unknown History cranberry extract 250 mg tablet 1 mg PO DAILY Check wi th primary 08/20/22 Unknown History doctor circaid wrap #2 ea 09/03/22 Unknown Rx acetaminophen 500 mg tablet 1,000 mg PO Q6 PRN 3 Unknown History omeprazole 20 mg capsule,delayed 20 mg PO DAILY PRN re flux 11/28/22 Unknown History release Handicap Placard #1 ea 12/10/22 Unknown Rx blood-glucose meter (OneTouch #1 ea 01/18/23 Unknown R x Ultra2 Meter kit) Electronic blood pressure cuff #1 ea 05/20/23 Unknown Rx losartan 50 mg tablet 50 mg PO DAILY #90 tabs 05/24 11/15 Unknown Rx diclofenac sodium 1 % topical gel 4 g topical BID PRN Muscle/joint 06/18/23 Unknown Rx pain #100 grams insulin glargine 100 unit/mL (3 25 unit (0.25 mL) subc ut DAILY DM 07/23/23 Unknown Rx mL) subcutaneous pen (Lantus #15 mL Solostar U-100 Insulin) blood sugar diagnostic (OneTouch #180 ea 08/05/23 Unkn own Rx Ultra Test strips) lancets #180 ea 08/05/23 Unknown Rx pen needle, diabetic 32 gauge x #150 ea 09/12/23 Unkno wn Rx (BD Ultra-Fine Nan Pen Needle) insulin lispro 100 unit/mL 9 unit (0.09 mL) subcut TID 09/30/23 Unknown Rx subcutaneous cartridge (Humalog diabetes #8.1 mL U-100 Insulin) Allergy/AdvReac Type Severity Reaction Status Date / Time aspirin Allergy Upset Verified 11/26/24 12:37 Stomach capsaicin Allergy Rash Verified 11/26/24 12:37 chlorhexidine Allergy Rash Verified 11/26/24 12:37 codeine Allergy Vomiting Verified 11/26/24 12:37 empagliflozin (From Allergy Other Verified 11/26/24 12:37 Jardiance) erythromycin base Allergy Other Verified 11/26/24 12:37 hydrocodone (From [place]) Allergy Other Verified 11/26/24 12:37 Sulfa (Sulfonamide Allergy Rash Verified 11/26/24 12:37 Antibiotics) tramadol Allergy Other Verified 11/26/24 12:37 trimethoprim Allergy PT UNSURE Verified 11/26/24 12:37 OF REACTION baclofen AdvReac Severe nightmares Verified 11/26/24 12:37 adhesive tape AdvReac Rash Verified 11/26/24 12:37 buprenorphine AdvReac Rash Verified 11/26/24 12:37 carbidopa (From Sinemet) AdvReac Rash Verified 11/26/24 12:37 cat dander AdvReac Other Verified 11/26/24 12:37 cigarette smoke AdvReac Other Verified 11/26/24 12:37 ciprofloxacin AdvReac Rash Verified 11/26/24 12:37 cyclobenzaprine AdvReac Nausea Verified 11/26/24 12:37 Environmental Allergies: AdvReac Other Verified 11/26/24 12:37 Uncoded levodopa (From Sinemet) AdvReac Other Verified 11/26/24 12:37 meperidine AdvReac PT UNSURE Verified 11/26/24 12:37 OF REACTION sulfamethoxazole (From AdvReac Nausea Verified 11/26/24 12:37 Septra) Family History Grandmother Cerebral aneurysm CVA (cerebral vascular accident) Brother CVA (cerebral vascular accident) Cancer Mother CVA (cerebral vascular accident) Father Cancer Other Diabetes Heart disease Hypertension Myocardial infarction Surgical History Hx of laminectomy History of cataract removal with insertion of prosthetic lens H/O: hysterectomy History of ankle surgery Hx of cholecystectomy History of total right knee replacement History of lumbar laminectomy History of lumbar spinal fusion Hx of tonsillectomy Social History household members: spouse housing: house Smoking Status: Never smoker Electronic Cigarette Use: not used second hand exposure: No alcohol intake: never substance use type: does not use what type of physical activity do you participate in: none sharla/confucianism: None seatbelt use: always ROS Review of Systems ROS Unobtainable: Denies due to encephalopathy Constitutional Constitutional: Denies anorexia, change in weight, chills, fatigue, fever(s), malaise or weakness Eyes Eyes: Denies change in vision ENT HEENT: Denies dysphagia, headache(s) or sore throat Cardiovascular Cardiovascular: Reports chest pain; Denies dyspnea on exertion, edema, lightheadedness, orthopnea, palpitations, paroxysmal nocturnal dyspnea, rapid heart rate or syncope Respiratory/Chest Respiratory/Chest: Denies cough, dyspnea, productive cough, shortness of breath at rest or shortness of breath with exertion Gastrointestinal Gastrointestinal: Denies abdominal pain, diarrhea, hematochezia, nausea or vomiting Genitourinary Genitourinary: Denies burning urination or dysuria Neurologic Neurologic: Denies confusion, dizziness, focal weakness or headache(s) Psychiatric Psychiatric: Denies anxiety Vital Signs Vital Signs Vital Signs: 11/26/24 12:34 11/26/24 12:37 11/26/24 13:00 Temperature 98 F Temperature Source Oral Pulse Rate 60 Respiratory Rate 20 H Respiratory Effort Short of Breath Blood Pressure 110/60 Blood Pressure Mean 76 Pulse Ox 99 Oxygen Delivery Method Room Air Room Air 11/26/24 13:03 Temperature Temperature Source Pulse Rate Respiratory Rate Respiratory Effort Blood Pressure 160/70 H Blood Pressure Mean Pulse Ox Oxygen Delivery Method Weight Weight: 253 lb 1.451 oz Body Mass Index (BMI) 40.8 Physical Exam Const alert, oriented x3 and no apparent distress General Appearance: cooperative HEENT normocephalic, head/scalp atraumatic, hearing grossly normal bilaterally and moist oral mucous membranes Mouth: oral and palatal mucosa normal Eyes PERRL, EOMs intact bilaterally and conjunctivae normal Neck no lymphadenopathy and supple Resp normal respiratory effort, no retractions, no use of accessory muscles and clearto auscultation bilaterally Cardio regular rate, regular rhythm, S1 normal heart sound, S2 normal heart sound and no murmurs GI normal to inspection, nondistended, normoactive bowel sounds, soft to palpation,non-tender and non-distended Extremity normal to inspection, full ROM and no clubbing, cyanosis or edema Neuro oriented x3, CN's II-XII intact bilaterally, moves all extremities and no focal motor deficits Sensorium / Orientation: awake and alert Motor Exam: strength 5/5 throughout Psych affect normal Results Lab / Micro Data 11/26/24 12:43 11/26/24 12:43 Labs: Laboratory Results - last 24 hr 11/26/24 12:42: PT 14.1, INR 1.1, APTT 25.8 11/26/24 12:43: WBC 9.3, RBC 4.20, Hgb 13.1, Hct 39.4, MCV 93.8, MCH 31.2, MCHC 33.2, RDW Std Deviation 44.4 H, RDW Coeff of Hugo 13.0, Plt Count 285, MPV 8.9, Immature Gran % (Auto) 0.600, Neut % (Auto) 59.9, Lymph % (Auto) 30.1, [place] % (Auto) 5.9, Eos % (Auto) 3.1, Baso % (Auto) 0.4, Absolute Neuts (auto) 5.6, Absolute Lymphs (auto) 2.79, Nucleated RBC % 0, Sodium 138, Potassium 4.1, Chloride 107, Carbon Dioxide 19.0 L, Anion Gap 13, BUN 13, Creatinine 0.88, Estim Creat Clear Calc 72.16, Est GFR (MDRD) Non-Af 69, BUN/Creatinine Ratio 14.3, Glucose 180 H, Calcium 9.4, Troponin T High Sens 16 H 11/26/24 13:06: Activated Clotting Time 158 H 11/26/24 13:46: Activated Clotting Time 170 H Assessment & Plan Assessment/Plan (1) ST elevation (STEMI) myocardial infarction: PLAN: Plan #STEMI s/p cardiac cath * Patient admitted with a complaint of chest pain which lasted about 20 minutes prior to admission. She had ST elevation in leads V1 and V2 on admission was sent emergently to the [facility]. * Had cardiac cath which showed 95% proximal LAD occlusion with thrombus. She had successful PTCA with drug-eluting stent insertion to the proximal LAD. * Place patient on aspirin and Brilinta as well as high intensity statin. To be on aspirin indefinitely and Brilinta for at least 6 months per cardiology. * For 2D echo tomorrow. Will need cardiac rehab. * Type 2 diabetes mellitus with neuropathy: * On Lantus 25 units daily as well as Januvia. Was on gabapentin. * insulin sliding scale. Accuchecks ACHS. * Follows with endocrinology. #Hypertension: On losartan. Will likely benefit from addition of beta-carlos in light of STEMI #GERD: on PPI. #History of Alexis thyroiditis * has a history of positive thyroid antibodies with normal TSH * follow with endocrinology on outpatient basis. * #DVT prophylaxis: SCDs CODE STATUS: Full code * Patient counseled extensively about different types of CODE STATUS including full code, DNR CCA and DNR CCA. * Patient elects to be full code. * Total [id number]-elsl time 16 minutes. Charges/Coding Visit Charges Inpatient E&M: 87964 Init Hosp L3 Procedures Hospitalists Procedures: 59939 Advncd Care Plan 30 Min 11/26/24 190 <Electronically signed by Tahira De MD> Cosigner Signature (if applicable): CC: Dr. Aries Hill MD; Dr. Tahira De MD~ Signed ADDENDUM by Dr. Tahira De MD on 11/26/24 at 1925 Addendum Correction: Patient started on Plavix, not Brilinta as documented in H&P. Rest of note otherwise remains as is. 11/26/241923<Electronically signed by Tahira De MD> Cosigner Signature (if applicable): cc: Dr. Aries Hill MD; Dr. Tahira De MD ~* Signed [facility] Work Phone: [phone] 688-965403-06-2025 History and physical note [facility] Medical Records Department [address] [place] [address] H&P Exam - Hospitalist 11/26/24 1416 MR#: [id number] Acct: [id number] Name: TRISTEN GOMEZ TOSHIA Rep #:[id number] : 1950 74 From: Tahira De MD PCP: Dr. Aries Hill MD Status:A DM IN Location: ICU ICU07-1 HPI - General General Date of Admission: 11/26/24 Date of Service: 11/26/24 Chief Complaint: chest pain HPI Narrative TRISTEN GOMEZ, is a 74 F with a past medical history as outlined was admitted through the ED on 11/26/2024 with a complaint of chest pain. He had a past medical history of diabetes and hypertension aswell as a remote history of PE. The chest pain started about 20 minutes prior to admission and she had associated nausea and vomiting. She denied any history of heart disease and says she sees a cardi ologist at ; she denies any history of heart issues. Review of systems otherwise negative. EKG done on admission showed ST elevationin V1 and V2 with reciprocal inferior changes. STEMI alert was called and patient was taken emergently to the [facility] after being given aspirin and Brilinta as wellas heparin, morphine and Zofran. CBC done prior to the cath showed WBC of 9.3 with hemoglobin of 13.1 and platelets of 285. Initial troponin was 16. Chemistry showed potassium of 4.1 with sodium of 138, bicarb of 19 and anion gap of 13 with a creatinine of 0.88. Creatinine was 0.8, serumglucose [id number]. Chest x-ray showed no acute cardiopulmonary pathology. She had cardiac cath. She was admitted to the ICU afterwards. Patient was seen in the ICU. She had no active complaints. Review of systems otherwise negative. She was hemodynamically stable. [facility] Medical History H/O Alexis thyroiditis Type 2 diabetes mellitus Breast pain, left Hemorrhoid Breast cancer screening Diabetes mellitus type 1.5 Osteoarthritis Morbid obesity with BMI of 40.0-44.9, adult Osteopenia Left upper arm pain Left shoulder pain Intertriginous dermatitis associated with moisture Chronic back pain Easy bruising Walker as ambulation aid Ambulates with cane Pulmonary embolism DVT (deep venous thrombosis) Syncope Gastric reflux Chronic cough History of stress test Hypertension History of anesthesia problem Degenerative arthritis of hip Hypertension Polyneuropathy Spinal stenosis of lumbar region Cataract fragments in right eye following surgery Herniated nucleus pulposus, L3-4 left Cubital tunnel syndrome on left Impaired gait and mobility Chronic neck pain Cervical spinal stenosis Carpal tunnel syndrome, left Cervical radiculopathy at C8 Glaucoma DM neuropathies Liver hemangioma Ulcer Alexis's thyroiditis Rheumatoid arthritis Lupus IBS (irritable bowel syndrome) Gout Cataracts, bilateral History of breast lump History of UTI Anemia Seasonal allergies Home Medications ?Medication ?Instructions ?Recorded ?Last Taken ?Type cholecalciferol (vitamin D3) 10 25 mcg PO DAILY Check with primary 07/06/21 Unknown History mcg (400 unit) capsule doctor gabapentin 600 mg tablet 600 mg PO DAILY Check with p rimary 07/06/21 Unknown History doctor vitamin B complex (B 1 tab PO DAILY supplement Unknown History Complex-Vitamin B12 tablet) sitagliptin phosphate 100 mg 100 mg PO DAILY diabetes 03/14/22 Unknown History tablet (Januvia) multivitamin 1 tab PO DAILY supplement Unknown History cranberry extract 250 mg tablet 1 mg PO DAILY Check wi th primary 08/20/22 Unknown History doctor circaid wrap #2 ea 09/03/22 Unknown Rx acetaminophen 500 mg tablet 1,000 mg PO Q6 PRN 3 Unknown History omeprazole 20 mg capsule,delayed 20 mg PO DAILY PRN re flux 11/28/22 Unknown History release Handicap Placard #1 ea 12/10/22 Unknown Rx blood-glucose meter (OneTouch #1 ea 01/18/23 Unknown R x Ultra2 Meter kit) Electronic blood pressure cuff #1 ea 05/20/23 Unknown Rx losartan 50 mg tablet 50 mg PO DAILY #90 tabs 05/24 11/15 Unknown Rx diclofenac sodium 1 % topical gel 4 g topical BID PRN Muscle/joint 06/18/23 Unknown Rx pain #100 grams insulin glargine 100 unit/mL (3 25 unit (0.25 mL) subc ut DAILY DM 07/23/23 Unknown Rx mL) subcutaneous pen (Lantus #15 mL Solostar U-100 Insulin) blood sugar diagnostic (OneTouch #180 ea 08/05/23 Unkn own Rx Ultra Test strips) lancets #180 ea 08/05/23 Unknown Rx pen needle, diabetic 32 gauge x #150 ea 09/12/23 Unkno wn Rx (BD Ultra-Fine Nan Pen Needle) insulin lispro 100 unit/mL 9 unit (0.09 mL) subcut TID 09/30/23 Unknown Rx subcutaneous cartridge (Humalog diabetes #8.1 mL U-100 Insulin) Allergy/AdvReac Type Severity Reaction Status Date / Time aspirin Allergy Upset Verified 11/26/24 12:37 Stomach capsaicin Allergy Rash Verified 11/26/24 12:37 chlorhexidine Allergy Rash Verified 11/26/24 12:37 codeine Allergy Vomiting Verified 11/26/24 12:37 empagliflozin (From Allergy Other Verified 11/26/24 12:37 Jardiance) erythromycin base Allergy Other Verified 11/26/24 12:37 hydrocodone (From [place]) Allergy Other Verified 11/26/24 12:37 Sulfa (Sulfonamide Allergy Rash Verified 11/26/24 12:37 Antibiotics) tramadol Allergy Other Verified 11/26/24 12:37 trimethoprim Allergy PT UNSURE Verified 11/26/24 12:37 OF REACTION baclofen AdvReac Severe nightmares Verified 11/26/24 12:37 adhesive tape AdvReac Rash Verified 11/26/24 12:37 buprenorphine AdvReac Rash Verified 11/26/24 12:37 carbidopa (From Sinemet) AdvReac Rash Verified 11/26/24 12:37 cat dander AdvReac Other Verified 11/26/24 12:37 cigarette smoke AdvReac Other Verified 11/26/24 12:37 ciprofloxacin AdvReac Rash Verified 11/26/24 12:37 cyclobenzaprine AdvReac Nausea Verified 11/26/24 12:37 Environmental Allergies: AdvReac Other Verified 11/26/24 12:37 Uncoded levodopa (From Sinemet) AdvReac Other Verified 11/26/24 12:37 meperidine AdvReac PT UNSURE Verified 11/26/24 12:37 OF REACTION sulfamethoxazole (From AdvReac Nausea Verified 11/26/24 12:37 Septra) Family History Grandmother Cerebral aneurysm CVA (cerebral vascular accident) Brother CVA (cerebral vascular accident) Cancer Mother CVA (cerebral vascular accident) Father Cancer Other Diabetes Heart disease Hypertension Myocardial infarction Surgical History Hx of laminectomy History of cataract removal with insertion of prosthetic lens H/O: hysterectomy History of ankle surgery Hx of cholecystectomy History of total right knee replacement History of lumbar laminectomy History of lumbar spinal fusion Hx of tonsillectomy Social History household members: spouse housing: house Smoking Status: Never smoker Electronic Cigarette Use: not used second hand exposure: No alcohol intake: never substance use type: does not use what type of physical activity do you participate in: none sharla/confucianism: None seatbelt use: always ROS Review of Systems ROS Unobtainable: Denies due to encephalopathy Constitutional Constitutional: Denies anorexia, change in weight, chills, fatigue, fever(s), malaise or weakness Eyes Eyes: Denies change in vision ENT HEENT: Denies dysphagia, headache(s) or sore throat Cardiovascular Cardiovascular: Reports chest pain; Denies dyspnea on exertion, edema, lightheadedness, orthopnea, palpitations, paroxysmal nocturnal dyspnea, rapid heart rate or syncope Respiratory/Chest Respiratory/Chest: Denies cough, dyspnea, productive cough, shortness of breath at rest or shortness of breath with exertion Gastrointestinal Gastrointestinal: Denies abdominal pain, diarrhea, hematochezia, nausea or vomiting Genitourinary Genitourinary: Denies burning urination or dysuria Neurologic Neurologic: Denies confusion, dizziness, focal weakness or headache(s) Psychiatric Psychiatric: Denies anxiety Vital Signs Vital Signs Vital Signs: 11/26/24 12:34 11/26/24 12:37 11/26/24 13:00 Temperature 98 F Temperature Source Oral Pulse Rate 60 Respiratory Rate 20 H Respiratory Effort Short of Breath Blood Pressure 110/60 Blood Pressure Mean 76 Pulse Ox 99 Oxygen Delivery Method Room Air Room Air 11/26/24 13:03 Temperature Temperature Source Pulse Rate Respiratory Rate Respiratory Effort Blood Pressure 160/70 H Blood Pressure Mean Pulse Ox Oxygen Delivery Method Weight Weight: 253 lb 1.451 oz Body Mass Index (BMI) 40.8 Physical Exam Const alert, oriented x3 and no apparent distress General Appearance: cooperative HEENT normocephalic, head/scalp atraumatic, hearing grossly normal bilaterally and moist oral mucous membranes Mouth: oral and palatal mucosa normal Eyes PERRL, EOMs intact bilaterally and conjunctivae normal Neck no lymphadenopathy and supple Resp normal respiratory effort, no retractions, no use of accessory muscles and clearto auscultation bilaterally Cardio regular rate, regular rhythm, S1 normal heart sound, S2 normal heart sound and no murmurs GI normal to inspection, nondistended, normoactive bowel sounds, soft to palpation,non-tender and non-distended Extremity normal to inspection, full ROM and no clubbing, cyanosis or edema Neuro oriented x3, CN's II-XII intact bilaterally, moves all extremities and no focal motor deficits Sensorium / Orientation: awake and alert Motor Exam: strength 5/5 throughout Psych affect normal Results Lab / Micro Data 11/26/24 12:43 11/26/24 12:43 Labs: Laboratory Results - last 24 hr 11/26/24 12:42: PT 14.1, INR 1.1, APTT 25.8 11/26/24 12:43: WBC 9.3, RBC 4.20, Hgb 13.1, Hct 39.4, MCV 93.8, MCH 31.2, MCHC 33.2, RDW Std Deviation 44.4 H, RDW Coeff of Hugo 13.0, Plt Count 285, MPV 8.9, Immature Gran % (Auto) 0.600, Neut % (Auto) 59.9, Lymph % (Auto) 30.1, [place] % (Auto) 5.9, Eos % (Auto) 3.1, Baso % (Auto) 0.4, Absolute Neuts (auto) 5.6, Absolute Lymphs (auto) 2.79, Nucleated RBC % 0, Sodium 138, Potassium 4.1, Chloride 107, Carbon Dioxide 19.0 L, Anion Gap 13, BUN 13, Creatinine 0.88, Estim Creat Clear Calc 72.16, Est GFR (MDRD) Non-Af 69, BUN/Creatinine Ratio 14.3, Glucose 180 H, Calcium 9.4, Troponin T High Sens 16 H 11/26/24 13:06: Activated Clotting Time 158 H 11/26/24 13:46: Activated Clotting Time 170 H Assessment & Plan Assessment/Plan (1) ST elevation (STEMI) myocardial infarction: PLAN: Plan #STEMI s/p cardiac cath * Patient admitted with a complaint of chest pain which lasted about 20 minutes prior to admission.She had ST elevation in leads V1 and V2 on admission was sent emergently to the [facility]. * Had cardiac cath which showed 95% proximal LAD occlusion with thrombus. She had successful PTCA with drug-eluting stent insertion to the proximal LAD. * Place patient on aspirin and Brilinta as well as high intensity statin. To be on aspirin indefinitely and Brilinta for at least 6 months per cardiology. * For 2D echo tomorrow. Will need cardiac rehab. * Type 2 diabetes mellitus with neuropathy: * On Lantus 25 units daily as well as Januvia. Was on gabapentin. * insulin sliding scale. Accuchecks ACHS. * Follows with endocrinology. #Hypertension: On losartan. Will likely benefit from addition of beta-carlos in light of STEMI #GERD: on PPI. #History of Alexis thyroiditis * has a history of positive thyroid antibodies with normal TSH * follow with endocrinology on outpatient basis. * #DVT prophylaxis: SCDs CODE STATUS: Full code * Patient counseled extensively about different types of CODE STATUS including full code, DNR CCA and DNR CCA. * Patient elects to be full code. * Total kiow-kp-yaao time 16 minutes. Charges/Coding Visit Charges Inpatient E&M: 11532 Init Hosp L3 Procedures Hospitalists Procedures: 82298 Advncd Care Plan 30 Min 11/26/24 1906 Cosigner Signature (if applicable): CC: Dr. Aries Hill MD; Dr. Tahira De MD~ Signed ADDENDUM by Dr. Tahira De MD on 11/26/24 at 1925 Addendum Correction: Patient started on Plavix, not Brilinta as documented in H&P. Rest of note otherwise remains as is. 11/26/241923 Cosigner Signature (if applicable): cc: Dr. Aries Hill MD; Dr. Tahira De MD ~* Signed [facility]03-06-2025 Discharge summary Author Matt Jose [facility] Note Date/Time November 26, 2024 3:48 pm [facility] Medical Records Department [address] [place] [address] Emergency Department Summary 11/26/24 MR#: [id number] Acct: [id number] Name: TRISTEN GOMEZ Rep #:[id number] : 1950 74 From: Matt Bautista PCP: Dr. Aries Hill MD Status:A DM IN Location: ICU ICU07-1 HPI History of Present Illness Chief Complaint: Chest Pain Informant: patient Narrative Narrative: 74-year-old female history of diabetes and hypertension and remote history of pulmonary embolism presenting to the emergency room with a chief complaint of chest pain. Patient states she has had a chest pressure for about 20 minutes prior to arrival. She notes nausea and vomiting. She states she sees a assistant infant toddler teacher at [facility] but is unsure of why. She denies being on any blood thinners. She denies any new leg symptoms. [facility] Medical History H/O Alexis thyroiditis Type 2 diabetes mellitus Breast pain, left Hemorrhoid Breast cancer screening Diabetes mellitus type 1.5 Osteoarthritis Morbid obesity with BMI of 40.0-44.9, adult Osteopenia Left upper arm pain Left shoulder pain Intertriginous dermatitis associated with moisture Chronic back pain Easy bruising Walker as ambulation aid Ambulates with cane Pulmonary embolism DVT (deep venous thrombosis) Syncope Gastric reflux Chronic cough History of stress test Hypertension History of anesthesia problem Degenerative arthritis of hip Hypertension Polyneuropathy Spinal stenosis of lumbar region Cataract fragments in right eye following surgery Herniated nucleus pulposus, L3-4 left Cubital tunnel syndrome on left Impaired gait and mobility Chronic neck pain Cervical spinal stenosis Carpal tunnel syndrome, left Cervical radiculopathy at C8 Glaucoma DM neuropathies Liver hemangioma Ulcer Alexis's thyroiditis Rheumatoid arthritis Lupus IBS (irritable bowel syndrome) Gout Cataracts, bilateral History of breast lump History of UTI Anemia Seasonal allergies Home Medications ?Medication ?Instructions ?Recorded ?Last Taken ?Type cholecalciferol (vitamin D3) 10 25 mcg PO DAILY Check with primary 07/06/21 Unknown History mcg (400 unit) capsule doctor gabapentin 600 mg tablet 600 mg PO DAILY Check with p rimary 07/06/21 Unknown History doctor vitamin B complex (B 1 tab PO DAILY supplement Unknown History Complex-Vitamin B12 tablet) sitagliptin phosphate 100 mg 100 mg PO DAILY diabetes 03/14/22 Unknown History tablet (Januvia) multivitamin 1 tab PO DAILY supplement Unknown History cranberry extract 250 mg tablet 1 mg PO DAILY Check wi th primary 08/20/22 Unknown History doctor circaid wrap #2 ea 09/03/22 Unknown Rx acetaminophen 500 mg tablet 1,000 mg PO Q6 PRN 3 Unknown History omeprazole 20 mg capsule,delayed 20 mg PO DAILY PRN re flux 11/28/22 Unknown History release Handicap Placard #1 ea 12/10/22 Unknown Rx blood-glucose meter (OneTouch #1 ea 01/18/23 Unknown R x Ultra2 Meter kit) Electronic blood pressure cuff #1 ea 05/20/23 Unknown Rx losartan 50 mg tablet 50 mg PO DAILY #90 tabs 05/24 11/15 Unknown Rx diclofenac sodium 1 % topical gel 4 g topical BID PRN Muscle/joint 06/18/23 Unknown Rx pain #100 grams insulin glargine 100 unit/mL (3 25 unit (0.25 mL) subc ut DAILY DM 07/23/23 Unknown Rx mL) subcutaneous pen (Lantus #15 mL Solostar U-100 Insulin) blood sugar diagnostic (OneTouch #180 ea 08/05/23 Unkn own Rx Ultra Test strips) lancets #180 ea 08/05/23 Unknown Rx pen needle, diabetic 32 gauge x #150 ea 09/12/23 Unkno wn Rx (BD Ultra-Fine Nan Pen Needle) insulin lispro 100 unit/mL 9 unit (0.09 mL) subcut TID 09/30/23 Unknown Rx subcutaneous cartridge (Humalog diabetes #8.1 mL U-100 Insulin) Allergy/AdvReac Type Severity Reaction Status Date / Time aspirin Allergy Upset Verified 11/26/24 12:37 Stomach capsaicin Allergy Rash Verified 11/26/24 12:37 chlorhexidine Allergy Rash Verified 11/26/24 12:37 codeine Allergy Vomiting Verified 11/26/24 12:37 empagliflozin (From Allergy Other Verified 11/26/24 12:37 Jardiance) erythromycin base Allergy Other Verified 11/26/24 12:37 hydrocodone (From [place]) Allergy Other Verified 11/26/24 12:37 Sulfa (Sulfonamide Allergy Rash Verified 11/26/24 12:37 Antibiotics) tramadol Allergy Other Verified 11/26/24 12:37 trimethoprim Allergy PT UNSURE Verified 11/26/24 12:37 OF REACTION baclofen AdvReac Severe nightmares Verified 11/26/24 12:37 adhesive tape AdvReac Rash Verified 11/26/24 12:37 buprenorphine AdvReac Rash Verified 11/26/24 12:37 carbidopa (From Sinemet) AdvReac Rash Verified 11/26/24 12:37 cat dander AdvReac Other Verified 11/26/24 12:37 cigarette smoke AdvReac Other Verified 11/26/24 12:37 ciprofloxacin AdvReac Rash Verified 11/26/24 12:37 cyclobenzaprine AdvReac Nausea Verified 11/26/24 12:37 Environmental Allergies: AdvReac Other Verified 11/26/24 12:37 Uncoded levodopa (From Sinemet) AdvReac Other Verified 11/26/24 12:37 meperidine AdvReac PT UNSURE Verified 11/26/24 12:37 OF REACTION sulfamethoxazole (From AdvReac Nausea Verified 11/26/24 12:37 Septra) Family History Grandmother Cerebral aneurysm CVA (cerebral vascular accident) Brother CVA (cerebral vascular accident) Cancer Mother CVA (cerebral vascular accident) Father Cancer Other Diabetes Heart disease Hypertension Myocardial infarction Surgical History Hx of laminectomy History of cataract removal with insertion of prosthetic lens H/O: hysterectomy History of ankle surgery Hx of cholecystectomy History of total right knee replacement History of lumbar laminectomy History of lumbar spinal fusion Hx of tonsillectomy Social History household members: spouse housing: house Smoking Status: Never smoker Electronic Cigarette Use: not used second hand exposure: No alcohol intake: never substance use type: does not use what type of physical activity do you participate in: none sharla/confucianism: None seatbelt use: always ROS ROS ED Constitutional Constitutional ED: Denies chills, fever(s) or weight loss Eyes Eyes: Denies change in vision or diplopia ENT ENT ED: Denies ear pain, rhinorrhea or sore throat Cardiovascular Cardiovascular: Reports chest pain; Denies orthopnea, palpitations or racing heartbeat Respiratory/Chest Respiratory/Chest: Reports dyspnea; Denies cough or orthopnea Gastrointestinal Gastrointestinal: Reports nausea and vomiting; Denies abdominal pain or diarrhea Genitourinary Genitourinary ED: Denies dysuria, hematuria or urinary frequency Musculoskeletal Musculoskeletal: Denies arthralgias or myalgias Integumentary Denies abscess or rash Neurologic Neurologic: Denies headache(s) or weakness Psychiatric Psychiatric: Denies anxiety, depression, suicidal ideation or suicidal thoughts Endocrine Endocrinology: Denies polydipsia, polyphagia or polyuria Allergic/Immunologic Allergic/Immunologic ED: Denies mouth swelling, tongue swelling or urticaria EXAM Physical Exam Narrative Exam Narrative: Patient appears acutely ill actively vomiting Const Vital Signs: 11/26/24 12:34 11/26/24 12:37 11/26/24 13:00 Temperature 98 F Temperature Source Oral Pulse Rate 60 Respiratory Rate 20 H Respiratory Effort Short of Breath Blood Pressure 110/60 Blood Pressure Mean 76 Pulse Ox 99 Oxygen Delivery Method Room Air Room Air 11/26/24 13:03 Temperature Temperature Source Pulse Rate Respiratory Rate Respiratory Effort Blood Pressure 160/70 H Blood Pressure Mean Pulse Ox Oxygen Delivery Method Positive well nourished and well developed General Appearance ED: well developed HEENT Reports normocephalic, head/scalp atraumatic and moist mucous membranes Eyes PERRL and EOMs intact bilaterally Neck no lymphadenopathy, supple and no JVD Resp normal respiratory effort and clear to auscultation bilaterally Cardio regular rate, regular rhythm and no murmurs GI normal to inspection, nondistended, normoactive bowel sounds and non-tender Palpation: soft Back/Spine no CVA tenderness and normal ROM Extremity normal to inspection General Extremety ED: Yes edema General Extremity: edema bilateral lower extremity Details: mild Neuro oriented x3 and CN's II-XII intact bilaterally Sensorium / Orientation: alert Motor Exam: strength 5/5 throughout Psych mental status grossly normal Mood & Affect: Negative for depressed or tearful Skin no rashes or lesions noted and no wounds MDM MDM MDM Narrative Medical decision making narrative: Differential diagnosis includes but not limited to STEMI and STEMI aortic dissection pulmonary embolism aortic aneurysm acute kidney injury electrolyte abnormalities. EKG was brought to me and is concerning for STEMI. I was able to find EKG datedJuly 2021 to compare this to which shows distinct difference. There appearsto be ST elevation in V1 V2 with reciprocal inferior changes. STEMI team was called. EKG was taken to the Clothing Worker for review by the adjunct art history instructor Dr. Arellano. Patient was prepped to go to the Clothing Worker. She received aspirin Brilinta heparin morphine and Zofran. Chest x-ray was ordered but the patient was taken to Clothing Worker prior to being obtained. White count 9.3 hemoglobin 13.1 platelet count of 285. Initial troponin is 16. Creatinine 0.88. Glucose 180. History & Record Review Discussion w/independent historian: Patient Lab Data Attestation: I reviewed the patient's lab results. Labs: Laboratory Results - last 24 hr 11/26/24 11/26/24 12:42 12:43 WBC 9.3 RBC 4.20 Hgb 13.1 Hct 39.4 MCV 93.8 MCH 31.2 MCHC 33.2 RDW Std Deviation 44.4 H RDW Coeff of Hugo 13.0 Plt Count 285 MPV 8.9 Immature Gran % (Auto) 0.600 Neut % (Auto) 59.9 Lymph % (Auto) 30.1 [place] % (Auto) 5.9 Eos % (Auto) 3.1 Baso % (Auto) 0.4 Absolute Neuts (auto) 5.6 Absolute Lymphs (auto) 2.79 Nucleated RBC % 0 PT 14.1 INR 1.1 APTT 25.8 Sodium 138 Potassium 4.1 Chloride 107 Carbon Dioxide 19.0 L Anion Gap 13 BUN 13 Creatinine 0.88 Estim Creat Clear Calc 72.16 Est GFR (MDRD) Non-Af 69 BUN/Creatinine Ratio 14.3 Glucose 180 H Calcium 9.4 Troponin T High Sens 16 H EKG Initial EKG: Attestation: I personally reviewed and interpreted this EKG as follows: Comments: Sinus bradycardia ventricular rate of [address] elevation V1 V2 with reciprocal inferior changes Prior EKG tracings: available for review Prior: Changed (EKG dated April 10, 2022) Management Discussion w/another healthcare provider: Carbon Dioxide Operator (Dr Arellano) Critical Care Time Critical Care Time: Yes Critical care time (excluding procedures): 30-74 minutes (12 min), Including time spent:, Discussing w/Patient &/or Family/Slide Maker, Discussing w/Consultants, Arranging Admission or Transfer and Performing Direct Patient Care at Bedside Discharge Plan Dx/Rx/DC Orders Clinical Impression: Chest pain, ST elevation (STEMI) myocardial infarction Disposition Disposition: Acute Care Hospital [facility] Discharge Date/Time: 11/26/24 13:30 What to do if you have Problems For any increased pain, shortness of breath, bleeding, nausea or vomiting, chestpain, or any unexpected problems, contact your Primary Care Provider. Call [facility] ([phone]) or report to the closest Emergency Room. Call 911 if necessary. 11/26/24 1548 <Electronically signed by Matt Jose DO> Cosigner Signature (if applicable): CC: Dr. Aries Hill MD ~ Signed [facility] Work Phone: 1(822) 522-576003-06-2025 Consult note Author Saurav Arellano [facility] Note Date/Time November 26, 2024 2:39 pm [facility] Medical Records Department [address] [place] [address] Consultation - Cardiology 11/26/24 1435 MR#: [id number] Acct: [id number] Name: TRISTEN GOMEZ Rep #:[id number] : 1950 74 From: Saurav Arellano MD PCP: Dr. Aries Hill MD Status:R [facility] Location: ICU ICU-1 Assessment & Plan Assessment/Plan (1) ST elevation (STEMI) myocardial infarction involving left anterior descending coronary artery: PLAN: After taking informed consent, patient was taken emergently to the cardiaccatheterization lab. Coronary angiography revealed 95% proximal LAD with thrombus burden. Successful percutaneous intervention was done with balloon angioplasty and placement of a 3.0 x 15 mm drug-eluting stent. Excellent results were noted. Continue aspirin lifelong. P2 Y12 treatment for at least 6 months. Risk factormodification. Beta-blockers. Angiotensin receptor blockers. Statins. Check echocardiogram. (2) Coronary artery disease: PLAN: See #1 above. (3) Hypertension: QUALIFIERS: Hypertension type: unspecified Qualified Code(s): I10- Essential (primary) hypertension PLAN: Beta-blockers and ARB's. HPI Consult Data Date of Consult: 11/26/24 HPI Narrative Reason for Consultation: STEMI HPI Narrative: This patient has past medical history significant for diabetes mellitus and hypertension. She presented to the emergency room with complaints of anterior chest discomfort that started about 40 minutes prior to presentation. No radiation to the arm neck or jaw. Positive associated shortness of breath. No diaphoresis. In the emergency room, an ECG was done. It showed changes consistent with acuteanterior myocardial infarction. Subsequently a STEMI alert was called. [facility] Medical History H/O Alexis thyroiditis Type 2 diabetes mellitus Breast pain, left Hemorrhoid Breast cancer screening Diabetes mellitus type 1.5 Osteoarthritis Morbid obesity with BMI of 40.0-44.9, adult Osteopenia Left upper arm pain Left shoulder pain Intertriginous dermatitis associated with moisture Chronic back pain Easy bruising Walker as ambulation aid Ambulates with cane Pulmonary embolism DVT (deep venous thrombosis) Syncope Gastric reflux Chronic cough History of stress test Hypertension History of anesthesia problem Degenerative arthritis of hip Hypertension Polyneuropathy Spinal stenosis of lumbar region Cataract fragments in right eye following surgery Herniated nucleus pulposus, L3-4 left Cubital tunnel syndrome on left Impaired gait and mobility Chronic neck pain Cervical spinal stenosis Carpal tunnel syndrome, left Cervical radiculopathy at C8 Glaucoma DM neuropathies Liver hemangioma Ulcer Alexis's thyroiditis Rheumatoid arthritis Lupus IBS (irritable bowel syndrome) Gout Cataracts, bilateral History of breast lump History of UTI Anemia Seasonal allergies Home Medications ?Medication ?Instructions ?Recorded ?Last Taken ?Type cholecalciferol (vitamin D3) 10 25 mcg PO DAILY Check with primary 07/06/21 Unknown History mcg (400 unit) capsule doctor gabapentin 600 mg tablet 600 mg PO DAILY Check with p rimary 07/06/21 Unknown History doctor vitamin B complex (B 1 tab PO DAILY supplement Unknown History Complex-Vitamin B12 tablet) sitagliptin phosphate 100 mg 100 mg PO DAILY diabetes 03/14/22 Unknown History tablet (Januvia) multivitamin 1 tab PO DAILY supplement Unknown History cranberry extract 250 mg tablet 1 mg PO DAILY Check wi th primary 08/20/22 Unknown History doctor circaid wrap #2 ea 09/03/22 Unknown Rx acetaminophen 500 mg tablet 1,000 mg PO Q6 PRN 3 Unknown History omeprazole 20 mg capsule,delayed 20 mg PO DAILY PRN re flux 11/28/22 Unknown History release Handicap Placard #1 ea 12/10/22 Unknown Rx blood-glucose meter (OneTouch #1 ea 01/18/23 Unknown R x Ultra2 Meter kit) Electronic blood pressure cuff #1 ea 05/20/23 Unknown Rx losartan 50 mg tablet 50 mg PO DAILY #90 tabs 05/24 11/15 Unknown Rx diclofenac sodium 1 % topical gel 4 g topical BID PRN Muscle/joint 06/18/23 Unknown Rx pain #100 grams insulin glargine 100 unit/mL (3 25 unit (0.25 mL) subc ut DAILY DM 07/23/23 Unknown Rx mL) subcutaneous pen (Lantus #15 mL Solostar U-100 Insulin) blood sugar diagnostic (OneTouch #180 ea 08/05/23 Unkn own Rx Ultra Test strips) lancets #180 ea 08/05/23 Unknown Rx pen needle, diabetic 32 gauge x #150 ea 09/12/23 Unkno wn Rx (BD Ultra-Fine Nan Pen Needle) insulin lispro 100 unit/mL 9 unit (0.09 mL) subcut TID 09/30/23 Unknown Rx subcutaneous cartridge (Humalog diabetes #8.1 mL U-100 Insulin) Allergy/AdvReac Type Severity Reaction Status Date / Time aspirin Allergy Upset Verified 11/26/24 12:37 Stomach capsaicin Allergy Rash Verified 11/26/24 12:37 chlorhexidine Allergy Rash Verified 11/26/24 12:37 codeine Allergy Vomiting Verified 11/26/24 12:37 empagliflozin (From Allergy Other Verified 11/26/24 12:37 Jardiance) erythromycin base Allergy Other Verified 11/26/24 12:37 hydrocodone (From [place]) Allergy Other Verified 11/26/24 12:37 Sulfa (Sulfonamide Allergy Rash Verified 11/26/24 12:37 Antibiotics) tramadol Allergy Other Verified 11/26/24 12:37 trimethoprim Allergy PT UNSURE Verified 11/26/24 12:37 OF REACTION baclofen AdvReac Severe nightmares Verified 11/26/24 12:37 adhesive tape AdvReac Rash Verified 11/26/24 12:37 buprenorphine AdvReac Rash Verified 11/26/24 12:37 carbidopa (From Sinemet) AdvReac Rash Verified 11/26/24 12:37 cat dander AdvReac Other Verified 11/26/24 12:37 cigarette smoke AdvReac Other Verified 11/26/24 12:37 ciprofloxacin AdvReac Rash Verified 11/26/24 12:37 cyclobenzaprine AdvReac Nausea Verified 11/26/24 12:37 Environmental Allergies: AdvReac Other Verified 11/26/24 12:37 Uncoded levodopa (From Sinemet) AdvReac Other Verified 11/26/24 12:37 meperidine AdvReac PT UNSURE Verified 11/26/24 12:37 OF REACTION sulfamethoxazole (From AdvReac Nausea Verified 11/26/24 12:37 Septra) Family History Grandmother Cerebral aneurysm CVA (cerebral vascular accident) Brother CVA (cerebral vascular accident) Cancer Mother CVA (cerebral vascular accident) Father Cancer Other Diabetes Heart disease Hypertension Myocardial infarction Surgical History Hx of laminectomy History of cataract removal with insertion of prosthetic lens H/O: hysterectomy History of ankle surgery Hx of cholecystectomy History of total right knee replacement History of lumbar laminectomy History of lumbar spinal fusion Hx of tonsillectomy Social History household members: spouse housing: house Smoking Status: Never smoker Electronic Cigarette Use: not used second hand exposure: No alcohol intake: never substance use type: does not use what type of physical activity do you participate in: none sharla/confucianism: None seatbelt use: always Physical Exam Narrative Appeared mildly anxious. Heart sounds 1 and 2 normal. Chest clear to auscultation bilaterally. Abdomen soft. Alert oriented x 3. Risk Stratification Risk Stratification Applicable: No Objective Data Vital Signs: Vital Signs Temp Pulse Resp BP Pulse Ox O2 Del Method 98 F 60 20 H 160/70 H 99 Room Air 11/26/24 12:34 11/26/24 12:34 11/26/24 12:34 11/26/24 13:03 11/26/24 12:34 11/26/24 13:00 Oxygen Delivery Method Room Air Weight: 253 lb 1.451 oz Body Mass Index (BMI) 40.8 Lab / Micro Data Attestation: I reviewed the patient's lab results. 11/26/24 12:43 11/26/24 12:43 Labs: Laboratory Results - last 24 hr 11/26/24 12:42: PT 14.1, INR 1.1, APTT 25.8 11/26/24 12:43: WBC 9.3, RBC 4.20, Hgb 13.1, Hct 39.4, MCV 93.8, MCH 31.2, MCHC 33.2, RDW Std Deviation 44.4 H, RDW Coeff of Hugo 13.0, Plt Count 285, MPV 8.9, Immature Gran % (Auto) 0.600, Neut % (Auto) 59.9, Lymph % (Auto) 30.1, [place] % (Auto) 5.9, Eos % (Auto) 3.1, Baso % (Auto) 0.4, Absolute Neuts (auto) 5.6, Absolute Lymphs (auto) 2.79, Nucleated RBC % 0, Sodium 138, Potassium 4.1, Chloride 107, Carbon Dioxide 19.0 L, Anion Gap 13, BUN 13, Creatinine 0.88, Estim Creat Clear Calc 72.16, Est GFR (MDRD) Non-Af 69, BUN/Creatinine Ratio 14.3, Glucose 180 H, Calcium 9.4, Troponin T High Sens 16 H 11/26/24 13:06: Activated Clotting Time 158 H 11/26/24 13:46: Activated Clotting Time 170 H 11/26/24 13:57: Activated Clotting Time 262 H Rhythm Strip Rhythm Strip: Sinus Rhythm Cardiology Labs/Tests 11/26/24 12:42: PT 14.1, INR 1.1, APTT 25.8 11/26/24 12:43: WBC 9.3, RBC 4.20, Hgb 13.1, Hct 39.4, MCV 93.8, MCH 31.2, MCHC 33.2, Plt Count 285, MPV 8.9, Immature Gran % (Auto) 0.600, Neut % (Auto) 59.9, Lymph % (Auto) 30.1, [place] % (Auto) 5.9, Eos % (Auto) 3.1, Baso % (Auto) 0.4, Absolute Neuts (auto) 5.6, Nucleated RBC % 0, Sodium 138, Potassium 4.1, Chloride 107, Carbon Dioxide 19.0 L, Anion Gap 13, BUN 13, Creatinine 0.88, Est GFR (MDRD) Non-Af 69, BUN/Creatinine Ratio 14.3, Glucose 180 H, Calcium 9.4 Rhythm: EKG: ECG done in the emergency room showed sinus bradycardia. ST elevations consistent with acute anterior myocardial infarction noted. Reciprocal changes in inferior leads. ECHO: Stress Test: Cardiac Cath: PCI: CT Surgery: Holter monitor: EPS: PPM: CXR: Chest CT Scan: 11/26/24 1439 <Electronically signed by Saurav Arellano MD> Cosigner Signature (if applicable): CC: Dr. Saurav Arellano MD; Dr. Aries Hill MD~ Signed [facility] Work Phone: 1(986) 131-462103-06-2025 Evaluation note* Diagnosis Onset Date Resolution Status Admit Date Chest pain acute November 26 2:22pm Coronary artery disease acute M 2024 2:22pm Grade I diastolic dysfunction acute November 26, 2024 2:22pm ST elevation (STEMI) myocardial infarction November 26, 2024 acute November 26, 2024 2:22pm ST elevation (STEMI) myocardial infarction involving left anterior descendi acute November 26, 2024 2:22pm Hypertension chronic November 26, 2 025 2:22pm [facility] Work Phone: 1(374) 217-555303-06-2025 Evaluation note* Diagnosis Onset Date Resolution Status Admit Date Chest pain inactive November 26 2:22pm Coronary artery disease inactive M 2024 2:22pm Grade I diastolic dysfunction inactive November 26, 2024 2:22pm Hypertension inactive November 26, 2 025 2:22pm ST elevation (STEMI) myocardial infarction November 26, 2024 inactive November 26, 2024 2:22pm ST elevation (STEMI) myocardial infarction involving left anterior descendi inactive November 26, 2024 2:22pm [facility] Work Phone: 1(625) 450-943403-06-2025 Progress note Author Mike Pacheco [facility] Note Date/Time November 26, 2024 2:[address] [facility] Medical Records Department [address] [place] [address] Quality Report 11/26/24 1408 MR#: [id number] Acct: [id number] Name: TRISTEN GOMEZ Rep #:[id number] : 1950 74 From: Mike Pacheco PCP: Dr. Aries Hill MD Status:R EG [facility] Location: ICU ICU07-1 STEMI STEMI ED Door Time / Other REG STEMI EKG Time (1) ST elevation (STEMI) myocardial infarction: Acute 11/26/24 12:33 Balloon/Aspiration Date-Time Date of Balloon/Aspiration:: 11/26/24 Time of Balloon/Aspiration:: 13:16 11/26/24 1409 <Electronically signed by Mike Pacheco > Date _ Mike Pacheco Cosigner Signature (if applicable): Date CC: ~ Signed [facility] Work Phone: [phone]) 940-543903-06-2025 Discharge summary [facility] Medical Records Department [address] [place] [address] Emergency Department Summary 11/26/24 MR#: [id number] Acct: [id number] Name: GOMEZTRISTEN Rep #:[id number] : 1950 74 From: Matt Bautista PCP: Dr. Aries Hill MD Status:A DM IN Location: ICU ICU07-1 HPI History of Present Illness Chief Complaint: Chest Pain Informant: patient Narrative Narrative: 74-year-old female history of diabetes and hypertension and remote history of pulmonary embolism presenting to the emergency room with a chief complaint of chest pain. Patient states she has had a chest pressure for about 20 minutes prior to arrival. She notes nausea and vomiting. She states she sees a assistant infant toddler teacher at [facility] but is unsure of why. She denies being on any blood thinners. She denies any new leg symptoms. [facility] Medical History H/O Alexis thyroiditis Type 2 diabetes mellitus Breast pain, left Hemorrhoid Breast cancer screening Diabetes mellitus type 1.5 Osteoarthritis Morbid obesity with BMI of 40.0-44.9, adult Osteopenia Left upper arm pain Left shoulder pain Intertriginous dermatitis associated with moisture Chronic back pain Easy bruising Walker as ambulation aid Ambulates with cane Pulmonary embolism DVT (deep venous thrombosis) Syncope Gastric reflux Chronic cough History of stress test Hypertension History of anesthesia problem Degenerative arthritis of hip Hypertension Polyneuropathy Spinal stenosis of lumbar region Cataract fragments in right eye following surgery Herniated nucleus pulposus, L3-4 left Cubital tunnel syndrome on left Impaired gait and mobility Chronic neck pain Cervical spinal stenosis Carpal tunnel syndrome, left Cervical radiculopathy at C8 Glaucoma DM neuropathies Liver hemangioma Ulcer Alexis's thyroiditis Rheumatoid arthritis Lupus IBS (irritable bowel syndrome) Gout Cataracts, bilateral History of breast lump History of UTI Anemia Seasonal allergies Home Medications ?Medication ?Instructions ?Recorded ?Last Taken ?Type cholecalciferol (vitamin D3) 10 25 mcg PO DAILY Check with primary 07/06/21 Unknown History mcg (400 unit) capsule doctor gabapentin 600 mg tablet 600 mg PO DAILY Check with p rimary 07/06/21 Unknown History doctor vitamin B complex (B 1 tab PO DAILY supplement Unknown History Complex-Vitamin B12 tablet) sitagliptin phosphate 100 mg 100 mg PO DAILY diabetes 03/14/22 Unknown History tablet (Januvia) multivitamin 1 tab PO DAILY supplement Unknown History cranberry extract 250 mg tablet 1 mg PO DAILY Check wi th primary 08/20/22 Unknown History doctor circaid wrap #2 ea 09/03/22 Unknown Rx acetaminophen 500 mg tablet 1,000 mg PO Q6 PRN 3 Unknown History omeprazole 20 mg capsule,delayed 20 mg PO DAILY PRN re flux 11/28/22 Unknown History release Handicap Placard #1 ea 12/10/22 Unknown Rx blood-glucose meter (OneTouch #1 ea 01/18/23 Unknown R x Ultra2 Meter kit) Electronic blood pressure cuff #1 ea 05/20/23 Unknown Rx losartan 50 mg tablet 50 mg PO DAILY #90 tabs 05/24 11/15 Unknown Rx diclofenac sodium 1 % topical gel 4 g topical BID PRN Muscle/joint 06/18/23 Unknown Rx pain #100 grams insulin glargine 100 unit/mL (3 25 unit (0.25 mL) subc ut DAILY DM 07/23/23 Unknown Rx mL) subcutaneous pen (Lantus #15 mL Solostar U-100 Insulin) blood sugar diagnostic (OneTouch #180 ea 08/05/23 Unkn own Rx Ultra Test strips) lancets #180 ea 08/05/23 Unknown Rx pen needle, diabetic 32 gauge x #150 ea 09/12/23 Unkno wn Rx (BD Ultra-Fine Nan Pen Needle) insulin lispro 100 unit/mL 9 unit (0.09 mL) subcut TID 09/30/23 Unknown Rx subcutaneous cartridge (Humalog diabetes #8.1 mL U-100 Insulin) Allergy/AdvReac Type Severity Reaction Status Date / Time aspirin Allergy Upset Verified 11/26/24 12:37 Stomach capsaicin Allergy Rash Verified 11/26/24 12:37 chlorhexidine Allergy Rash Verified 11/26/24 12:37 codeine Allergy Vomiting Verified 11/26/24 12:37 empagliflozin (From Allergy Other Verified 11/26/24 12:37 Jardiance) erythromycin base Allergy Other Verified 11/26/24 12:37 hydrocodone (From [place]) Allergy Other Verified 11/26/24 12:37 Sulfa (Sulfonamide Allergy Rash Verified 11/26/24 12:37 Antibiotics) tramadol Allergy Other Verified 11/26/24 12:37 trimethoprim Allergy PT UNSURE Verified 11/26/24 12:37 OF REACTION baclofen AdvReac Severe nightmares Verified 11/26/24 12:37 adhesive tape AdvReac Rash Verified 11/26/24 12:37 buprenorphine AdvReac Rash Verified 11/26/24 12:37 carbidopa (From Sinemet) AdvReac Rash Verified 11/26/24 12:37 cat dander AdvReac Other Verified 11/26/24 12:37 cigarette smoke AdvReac Other Verified 11/26/24 12:37 ciprofloxacin AdvReac Rash Verified 11/26/24 12:37 cyclobenzaprine AdvReac Nausea Verified 11/26/24 12:37 Environmental Allergies: AdvReac Other Verified 11/26/24 12:37 Uncoded levodopa (From Sinemet) AdvReac Other Verified 11/26/24 12:37 meperidine AdvReac PT UNSURE Verified 11/26/24 12:37 OF REACTION sulfamethoxazole (From AdvReac Nausea Verified 11/26/24 12:37 Septra) Family History Grandmother Cerebral aneurysm CVA (cerebral vascular accident) Brother CVA (cerebral vascular accident) Cancer Mother CVA (cerebral vascular accident) Father Cancer Other Diabetes Heart disease Hypertension Myocardial infarction Surgical History Hx of laminectomy History of cataract removal with insertion of prosthetic lens H/O: hysterectomy History of ankle surgery Hx of cholecystectomy History of total right knee replacement History of lumbar laminectomy History of lumbar spinal fusion Hx of tonsillectomy Social History household members: spouse housing: house Smoking Status: Never smoker Electronic Cigarette Use: not used second hand exposure: No alcohol intake: never substance use type: does not use what type of physical activity do you participate in: none sharla/confucianism: None seatbelt use: always ROS ROS ED Constitutional Constitutional ED: Denies chills, fever(s) or weight loss Eyes Eyes: Denies change in vision or diplopia ENT ENT ED: Denies ear pain, rhinorrhea or sore throat Cardiovascular Cardiovascular: Reports chest pain; Denies orthopnea, palpitations or racing heartbeat Respiratory/Chest Respiratory/Chest: Reports dyspnea; Denies cough or orthopnea Gastrointestinal Gastrointestinal: Reports nausea and vomiting; Denies abdominal pain or diarrhea Genitourinary Genitourinary ED: Denies dysuria, hematuria or urinary frequency Musculoskeletal Musculoskeletal: Denies arthralgias or myalgias Integumentary Denies abscess or rash Neurologic Neurologic: Denies headache(s) or weakness Psychiatric Psychiatric: Denies anxiety, depression, suicidal ideation or suicidal thoughts Endocrine Endocrinology: Denies polydipsia, polyphagia or polyuria Allergic/Immunologic Allergic/Immunologic ED: Denies mouth swelling, tongue swelling or urticaria EXAM Physical Exam Narrative Exam Narrative: Patient appears acutely ill actively vomiting Const Vital Signs: 11/26/24 12:34 11/26/24 12:37 11/26/24 13:00 Temperature 98 F Temperature Source Oral Pulse Rate 60 Respiratory Rate 20 H Respiratory Effort Short of Breath Blood Pressure 110/60 Blood Pressure Mean 76 Pulse Ox 99 Oxygen Delivery Method Room Air Room Air 11/26/24 13:03 Temperature Temperature Source Pulse Rate Respiratory Rate Respiratory Effort Blood Pressure 160/70 H Blood Pressure Mean Pulse Ox Oxygen Delivery Method Positive well nourished and well developed General Appearance ED: well developed HEENT Reports normocephalic, head/scalp atraumatic and moist mucous membranes Eyes PERRL and EOMs intact bilaterally Neck no lymphadenopathy, supple and no JVD Resp normal respiratory effort and clear to auscultation bilaterally Cardio regular rate, regular rhythm and no murmurs GI normal to inspection, nondistended, normoactive bowel sounds and non-tender Palpation: soft Back/Spine no CVA tenderness and normal ROM Extremity normal to inspection General Extremety ED: Yes edema General Extremity: edema bilateral lower extremity Details: mild Neuro oriented x3 and CN's II-XII intact bilaterally Sensorium / Orientation: alert Motor Exam: strength 5/5 throughout Psych mental status grossly normal Mood & Affect: Negative for depressed or tearful Skin no rashes or lesions noted and no wounds MDM MDM MDM Narrative Medical decision making narrative: Differential diagnosis includes but not limited to STEMI and STEMI aortic dissection pulmonary embolism aortic aneurysm acute kidney injury electrolyte abnormalities. EKG was brought to me and is concerning for STEMI. I was able to find EKG datedJuly 2021 to compare this to which shows distinct difference. There appearsto be ST elevation in V1 V2 with reciprocal inferior changes. STEMI team was called. EKG was taken to the Clothing Worker for review by the adjunct art history instructor Dr. Arellano. Patient was prepped to go to the Clothing Worker. She received aspirin Brilinta heparin morphine and Zofran. Chest x-ray was ordered but the patient was taken to Clothing Worker priorto being obtained. White count 9.3 hemoglobin 13.1 platelet count of 285. Initial troponin is 16. Creatinine 0.88. Glucose 180. History & Record Review Discussion w/independent historian: Patient Lab Data Attestation: I reviewed the patient's lab results. Labs: Laboratory Results - last 24 hr 11/26/24 11/26/24 12:42 12:43 WBC 9.3 RBC 4.20 Hgb 13.1 Hct 39.4 MCV 93.8 MCH 31.2 MCHC 33.2 RDW Std Deviation 44.4 H RDW Coeff of Hugo 13.0 Plt Count 285 MPV 8.9 Immature Gran % (Auto) 0.600 Neut % (Auto) 59.9 Lymph % (Auto) 30.1 [place] % (Auto) 5.9 Eos % (Auto) 3.1 Baso % (Auto) 0.4 Absolute Neuts (auto) 5.6 Absolute Lymphs (auto) 2.79 Nucleated RBC % 0 PT 14.1 INR 1.1 APTT 25.8 Sodium 138 Potassium 4.1 Chloride 107 Carbon Dioxide 19.0 L Anion Gap 13 BUN 13 Creatinine 0.88 Estim Creat Clear Calc 72.16 Est GFR (MDRD) Non-Af 69 BUN/Creatinine Ratio 14.3 Glucose 180 H Calcium 9.4 Troponin T High Sens 16 H EKG Initial EKG: Attestation: I personally reviewed and interpreted this EKG as follows: Comments: Sinus bradycardia ventricular rate of [address] elevation V1 V2 with reciprocalinferior changes Prior EKG tracings: available for review Prior: Changed (EKG dated April 10, 2022) Management Discussion w/another healthcare provider: Carbon Dioxide Operator (Dr Arellano) Critical Care Time Critical Care Time: Yes Critical care time (excluding procedures): 30-74 minutes (12 min), Including time spent:, Discussing w/Patient &/or Family/Slide Maker, Discussing w/Consultants, Arranging Admission or Transfer and Performing Direct Patient Care at Bedside Discharge Plan Dx/Rx/DC Orders Clinical Impression: Chest pain, ST elevation (STEMI) myocardial infarction Disposition Disposition: Acute Care Hospital [facility] Discharge Date/Time: 11/26/24 13:30 What to do if you have Problems For any increased pain, shortness of breath, bleeding, nausea or vomiting, chestpain, or any unexpected problems, contact your Primary Care Provider. Call [facility] ([phone]) or report tothe closest Emergency Room. Call 911 if necessary. 11/26/24 1548 Cosigner Signature (if applicable): CC: Dr. Aries Hill MD ~ Signed [facility]03-06-[address] [facility] Cardiac Rehab [address] [place] [address] CR: Phase I Education Summary MR#: [id number] Acct: [id number] Name: TRISTEN GOMEZ Rep #:[id number] : 1950 74 From: Magalys rosado PCP: Dr. Aries Hill MD DOS: General Education Discussed with Patient CAD and cardiac anatomy and function:: Patient communicates acknowledgment Explanation of diagnoses and procedures:: Patient communicates acknowledgment Sign/Symptoms of AR:: Patient communicates acknowledgment Antiplatelet therapy: Patient communicates acknowledgment Proper use of NTG-SL: Patient communicates acknowledgment Emergency procedures and activation of EMS: Patient communicates acknowledgment Compliance of all prescribed medications: Patient communicates acknowledgment Smoking Risk Factors Patient Nicotine/Smoking Risk Factors Are:: Never smoked Dyslipidemia Recommendations Recommendations Include:: Lipid profile not available Response Code Dyslipidemia Response Code:: Patient communicates acknowledgment Overweight/Obesity Risk Factors Patient Overweight/Obesity Risk Factors Are:: Obesity - > or = 30 Recommendations Recommendations Include:: Exercise 5-7 times/week Response Code Overweight/Obesity:: Patient communicates acknowledgment Hypertension Recommendations Recommendations Include:: Maintain BP <130/85 Response Code Hypertension:: Patient communicates acknowledgment Heart Disease Risk Factors Patient Heart Disease Risk Factors Are:: Previous cardiac event Response Code Heart Disease Response Code:: Patient communicates acknowledgment Diabetes Risk Factors Patient Diabetes Risk Factors Are:: Elevated blood sugars Recommendations Recommendations Include:: Maintain fasting blood sugars 70-110 md/dL and Decrease/maintain body weight Response Code Diabetes:: Patient communicates acknowledgment Metabolic Syndrome Risk Factors Patient Metabolic Syndrome Risk Factors Are [3 of 5]:: Waist circumference > 35[female] or 40 [male] and Hypertension Recommendations Recommendations Include:: Patient is diabetic Response Code Metabolic Syndrome Response Code:: Patient communicates acknowledgment Sedentary Risk Factors Patient Sedentary Risk Factors Are:: Lack of regular exercise Recommendations Recommendations Include:: Benefits of regular exercise Response Code Sedentary Response Code:: Patient communicates acknowledgment Stress Recommendations Recommendations Include:: Identification of stressors, and assessment of coping skills and Stress management techniques Response Code Stress Response Code:: Patient communicates acknowledgment 11/26/24 1514 Date Magalys Bartlett Outcome assessment reviewed. Exercise plan approved as documented. Treatment plan and goals support patient needs/abilities. Continue with current plan. I certify the patient demonstrates improvement and remains willing and capable of participation. the patient continues to benefit from cardiac rehab services/training. The patient may continue at current intensity, endurance and modality and progress per protocol. Cosigner Signature: Date CC: ~ Signed [facility]03-06-2025 Consult note [facility] Medical Records Department [address] [place] [address] Consultation - Cardiology 11/26/24 1435 MR#: [id number] Acct: [id number] Name: TRISTEN GOMEZ Rep #: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 dynamic nature of insulin requirements, the narrow therapeutic index of insulin and the potentially fatal consequences of treatment To obtain blood tests today documented in this [facility] Work Phone: 1([phone] 156-964511-25-2024 History of Present illness Narrative* Cat Mathews MD - 08/17/2024 10:15 AM EST Images from the original note were not included. Subjective Tristen Gomez is a 73 y.o. female who presents for follow up for Type 2 diabetes mellitus. The initial diagnosis of diabetes was made at age 43 yeras. 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 She has not been on thyroid replacement therapy. She states that she was seeing ENT for bilateral neck nodules. She stats that she started on Tresiba and Lyumjev in March and her sugars hve been uncontrolled. Shewas doing paige gwendolyn Lantus and Humalog. Known complications due to diabetes included peripheral neuropathy, obesity and CAD. Cardiovascular risk factors include advanced age (older than 55 for men, 65 for women), diabetes mellitus, and obesity (BMI >= 30 kg/m2). The patient is on an ALEXANDER inhibitor or angiotensin II receptor carlos. The patient has not been previously hospitalized due to diabetic ketoacidosis. Current symptoms/problems include none. Her clinical course has been stable. Current diabetes regimen is as follows: Lantus 35 units subcutaneous every morning Humalog 10 units TID AC Januvia 100mg once daily The patient is currently checking the blood glucose. Patient is using: glucometer Hypoglycemia frequency: Symptoms begin in the 80s Hypoglycemia awareness: Yes Exercise: denies Review of Systems Eyes: Dry eye Musculoskeletal: Positive for arthralgias. All other systems reviewed and are negative. Objective BP 126/74 (BP Location: Left arm, Patient Position: Sitting, BP Cuff Size: Adult) Pulse 81 Ht 1.676 m (5' 6) Wt 112 kg (246 lb 9.6 oz) BMI 39.80 kg/m Physical Exam Vitals and nursing note reviewed. Constitutional: General: She is not in acute distress. Appearance: Normal appearance. She is obese. HENT: Head: Normocephalic and atraumatic. Nose: Nose normal. Mouth/Throat: Mouth: Mucous membranes are moist. Eyes: Extraocular Movements: Extraocular movements intact. Cardiovascular: Pulses: Dorsalis pedis pulses are 2+ on the right side and 2+ on the left side. Pulmonary: Effort: Pulmonary effort is normal. Musculoskeletal: General: Normal range of motion. Right foot: Normal range of motion. No deformity. Left foot: Normal range of motion. No deformity. Feet: Right foot: Protective Sensation: 5 sites tested. 5 sites sensed. Skin integrity: Skin integrity normal. No ulcer or blister. Toenail Condition: Right toenails are normal. Left foot: Protective Sensation: 5 sites tested. 5 sites sensed. Skin integrity: Skin integrity normal. No ulcer or blister. Toenail Condition: Left toenails are normal. Skin: Comments: Healed laminectomy scar Neurological: Mental Status: She is alert and oriented to person, place, and time. Psychiatric: Mood and Affect: Mood normal. Lab Review Glucose (mg/dL) Date Value 08/17/2024 125 (H) 06/08/2024 140 (H) 04/24/2024 175 (H) Hemoglobin A1C (%) Date Value 08/17/2024 6.9 (H) 02/25/2024 6.4 (H) 10/21/2023 6.3 (H) Bicarbonate (mmol/L) Date Value 08/17/2024 28 06/08/2024 26 04/24/2024 25 Urea Nitrogen (mg/dL) Date Value 08/17/2024 16 06/08/2024 15 04/24/2024 37 (H) Creatinine (mg/dL) Date Value 08/17/2024 0.82 06/08/2024 0.79 04/24/2024 1.02 Lab Results Component Value Date TSH 2.19 08/17/2024 THYROIDPAB 151 (H) 10/21/2023 Lab Results Component Value Date TSH 2.19 08/17/2024 THYROIDPAB 151 (H) 10/21/2023 Health Maintenance: Foot Exam: February 24, 2024 Eye Exam: September 2023 Urine Albumin: October 21, 2023 Thyroid Ultrasound FINDINGS: Right thyroid lobe: 1.7 x 1.9 x 4.3 cm (AP x TRV x SAG). The right thyroid lobe is normal in size and the parenchyma has normal homogeneous echogenicity. Left thyroid lobe: 1.4 x 1.8 x 4.6 cm (AP x TRV x SAG). The left thyroid lobe is normal in size andthe parenchyma has normal homogeneous echogenicity. Thyroid isthmus AP diameter: 0.3 cm Nodule 1: Location: Right mid thyroid lobe Size: 1.4 x 1.0 x 1.2 cm (AP x TRV x SAG) Composition: Solid Echogenicity: Isoechoic Margin: Smooth Echogenic foci: None ACR total points: 3 Nodule 2: Location: Left lower thyroid lobe Size: 0.9 x 0.9 x 0.7 cm (AP x TRV x SAG) Composition: Solid Echogenicity: Isoechoic Margin: Smooth Echogenic foci: Rim calcifications are present ACR total points: 5 Other findings None Impression Nodule 1: ACR TI-RADS 2017 Category: TR3. Based on ACR TI-RADS criteria, no follow-up is necessary. Nodule 2: ACR TI-RADS 2017 Category: TR4. Based on ACR TI-RADS criteria, no follow-up is necessary. Assessment/Plan 73 year old female presents for follow up for type II DM. Her blood pressure is at goal. She also has positivity for anti-TPO but has not been on thyroid replacement therapy. Type 2 diabetes mellitus with hyperglycemia (Multi) To continue Tresiba 35 units subcutaneous every morning To increase Lyumjev 10 units before every meal Please commence an insulin sliding scale with before meals as follows: 150-200mg/dL - 2 units 201-250mg/dL - 4 units 251-300 mg/dL - 6 untis 301-350mg/dL - 8 units >351mg/dL - 10 units To switch to Lantus and Humalog at the above doses as she thinks it works better To continue Januvia 100mg once daily For FreeStyle Mikala CGM for the intensive glucose monitoring due to the dynamic nature of insulin requirements, the narrow therapeutic index of insulin and the potentially fatal consequences of treatment To obtain blood tests today Alexis's thyroiditis To obtain TFTs For follow up in 4 months as scheduled documented in this [facility] Work Phone: [phone]) 601-332911-25-2024 Instructions* Patient Instructions* Cat Mathews MD - 08/17/2024 10:15 AM EST Thank you for choosing [facility] for your health care needs. If you have any questions, concerns or medical needs, please feel free to contact our office at . Please ensure you complete your blood work one week before the next scheduled appointment. To continue Tresiba 35 units subcutaneous every morning To increase Lyumjev 10 units before every meal Please commence an insulin sliding scale with before meals as follows: 150-200mg/dL - 2 units 201-250mg/dL - 4 units 251-300 mg/dL - 6 untis 301-350mg/dL - 8 units >351mg/dL - 10 units To switch to Lantus and Humalog at the above doses as she thinks it works better To continue Januvia 100mg once daily To obtain blood tests For FreeStyle Mikala CGM for the intensive glucose monitoring due to the dynamic nature of insulin requirements, the narrow therapeutic index of insulin and the potentially fatal consequences of treatment To obtain blood tests today For follow up in 4 months as scheduled [facility] Work Phone: 1([phone] 108-759411-20-2024 History of Present illness Narrative* Zena Pablo MD - 08/12/2024 1:00 PM EST Patient showed up in the office today yelling at me. She said she wants to be discharged from here,although I did not ask her to come back today. She is doing well from a surgical standpoint. She would like to go back to work. She has paperwork that needs to be filled out. She began yelling at me to fill out right now in the office but I explained that I cannot stop in the middle of the busy date to fill out her paperwork. I gave her my office number and advised her to speak with my operating room assistant who can help her with these papers. She does not require any further follow-up with me. documented in [facility]Reg[facility] Work Phone: [phone] History of Present illness Narrative* Jodi Awan MD PhD - 07/21/2024 2:30 PM EDT Chief Complaint: No chief complaint on file. History Of Present Illness: Tristen Gomez is a 73 y.o. female returns for follow-up appointment. Patient was initiated on ferrous sulfate 325 mg twice daily with improvement of iron studies and also improvement of anemia. She is also placed on oral metoprolol 25 mg twice daily. Feels better overall. Energy started Last Recorded Vitals: Vitals: 07/21/24 1450 BP: 120/77 BP Location: Left arm Patient Position: Sitting BP Cuff Size: Adult long Pulse: 80 Weight: 110 kg (242 lb) Height: 1.676 m (5' 6) Review of Systems ROS Allergies: Aspirin, Ciprofloxacin, Cyclobenzaprine, Empagliflozin, Erythromycin, Hydrocodone, Tramadol, Adhesive, Adhesive tape-silicones, Capsaicin, Carbidopa- levodopa, Chlorhexidine, Codeine, Gluten, Hibiclens [chlorhexidine gluconate], Lysine, Meperidine, Nitrofurantoin, Sulfa (sulfonamide antibiotics), and Trimethoprim Outpatient Medications: Current Outpatient Medications Medication Instructions blood pressure monitor kit Use to check blood pressure once daily blood-glucose meter (ThinkUpuch Ultra2 Meter) misc 1 each, miscellaneous, 6 times daily carboxymethylcellulose (Refresh Tears) 0.5 % ophthalmic solution 1 drop, As needed cholecalciferol (VITAMIN D-3) 25 mcg, Daily cranberry conc-ascorbic acid 300-100 mg capsule Take by mouth. cyanocobalamin (VITAMIN B-12) 1,000 mcg, Daily ferrous sulfate 325 (65 Fe) MG EC tablet Take 1 tablet twice daily. Do not crush, chew, or split. gabapentin (NEURONTIN) 600 mg, Daily insulin degludec (TRESIBA U-100 INSULIN) 35 Units, subcutaneous, Every morning lancets (OneTouch UltraSoft Lancets) misc 1 each, miscellaneous, 4 times daily before meals and nightly losartan (COZAAR) 50 mg, oral, Daily Lyumjev U-100 Insulin 10 Units, subcutaneous, Daily, Inject 5 units before breakfast and 9 units before lunch and dinner metoprolol tartrate (LOPRESSOR) 25 mg, oral, 2 times daily multivitamin tablet 1 tablet, Daily omeprazole (PRILOSEC) 20 mg, As needed OneTBT Groupuch Ultra Test strip 1 each, intradermal, 4 times daily before meals and nightly SITagliptin phosphate (Januvia) 100 mg tablet Take by mouth. TechLITE Pen Needle 32 gauge x 5/32 needle 1 each, subcutaneous, 4 times daily before meals and nightly Physical Exam: Deferred. Last Labs: CBC - Lab Results Component Value Date WBC 7.9 06/08/2024 HGB 12.2 06/08/2024 HCT 38.2 06/08/2024 MCV 95 06/08/2024 PLT 330 06/08/2024 CMP - Lab Results Component Value Date CALCIUM 9.3 06/08/2024 PROT 6.8 06/08/2024 ALBUMIN 3.7 06/08/2024 AST 19 06/08/2024 ALT 15 06/08/2024 ALKPHOS 105 06/08/2024 BILITOT 0.3 06/08/2024 LIPID PANEL - Lab Results Component Value Date CHOL 140 10/21/2023 TRIG 120 10/21/2023 HDL 45.8 10/21/2023 CHHDL 3.1 10/21/2023 LDLF 84 03/20/2023 VLDL 24 10/21/2023 NHDL 94 10/21/2023 RENAL FUNCTION PANEL - Lab Results Component Value Date GLUCOSE 140 (H) 06/08/2024 NA 139 06/08/2024 K 4.7 06/08/2024 CL 104 06/08/2024 CO2 26 06/08/2024 ANIONGAP 14 06/08/2024 BUN 15 06/08/2024 CREATININE 0.79 06/08/2024 CALCIUM 9.3 06/08/2024 ALBUMIN 3.7 06/08/2024 Lab Results Component Value Date HGBA1C 6.4 (H) 02/25/2024 Last Cardiology Tests: ECG: Encounter Date: 05/27/24 ECG 12 lead (Clinic Performed) Narrative Unusual P axis, possible ectopic atrial rhythm LAFB Rate [address]-T wave changes Echo: No results found for this or any previous visit from the past 1095 days. Ejection Fractions: No results found for: EF Assessment and Plan 1. Chest pain: Resolved. Initially typical and atypical features. Baseline EKG sinus rhythm normal axis and delayed R wave progression. Risk factors include hypertension and type 2 diabetes. She apparently had a regadenoson stress test previously and stated chest pain which was reported negative. Subsequent echocardiogram revealed EF 55-60%, coronary cta demonstrated mild nonobstructive cad. Chest pain was deemed to be noncardiac in origin. 2. Hypertension: Continue losartan 50mg. Blood pressure checks at home. 3. Prior history of DVT/PE: She is on DVT prophylaxis after recent spine surgery. 4. Sinus tachycardia: No shortness of breath. Suspect related to the combination of normocytic anemia with iron deficiency. He has since improved and iron levels are within normal limits. Sinus tachycardia seems also improved. She is on oral metoprolol 25 mg twice a day. Follow-up in 6 months Check iron studies and CBC prior to next appointment (This note was generated with voice recognition software and may contain errors including spelling,grammar, syntax and missed recognition of what was dictated, of which may not have been fully corrected) Jodi Awan MD PhD documented in this encounterReg[facility] Work Phone: 1(351) [phone] Telephone encounter Note* Telephone Encounter - Sumaya Mcintosh - 07/20/2024 12:39 PM EDT Images from the original note were not included. Message released to patient as written. Tahmina Faith MA 07/20/2024 10:31 AM EDT Back to Top Called and left message for patient to call us back for results Darnell Tan MD 07/20/2024 9:54 AM EDT Please call pt and let her know that the urine culture was positive. She has a UTI. I have prescribed her Bactrim. She can pick it up from the pharmacy. Thank you. Patient's further questions if applicable: n/a Were all questions from office addressed or relayed to the patient from encounter: Yes [id number] Miscellaneous Notes* Telephone Encounter - Sumaya Mcintosh - 07/20/2024 12:39 PM EDT Images from the original note were not included. Message released to patient as written. Tahmina Faith MA 07/20/2024 10:31 AM EDT Back to Top Called and left message for patient to call us back for results Darnell Tan MD 07/20/2024 9:54 AM EDT Please call pt and let her know that the urine culture was positive. She has a UTI. I have prescribed her Bactrim. She can pick it up from the pharmacy. Thank you. Patient's further questions if applicable: n/a Were all questions from office addressed or relayed to the patient from encounter: Yes documented in this [facility]10-23-2024 History of Present illness Narrative* Darnell Tan MD - 07/15/2024 2:45 PM EDT HPI Chief Complaint Patient presents with UTI chronic 73 y.o. female Last seen approximately 2 years ago Patient with recurrent urinary tract infections Tried suppressive therapy Did well while on antibiotics The symptoms came back after she stopped antibiotics She stated symptomatic urinary tract infections with dysuria and irritative bladder symptoms The patient is few years after ROBOTIC ASSISTED ABDOMINAL SACROCOLPOPEXY. BILATERAL SALPINGO-OOPHORECTOMY POSTERIOR REPAIR. SYNTHETIC MID URETHRAL SLING. CYSTOSCOPY. Patient is doing well Could not afford Premarin No more prolapse She is able to empty her bladder without difficulties However, the patient complains of recurrent urinary tract infections. She stated that she is having at least 1 infection [address] month [address] Palma started her on cephalexin 250 mg daily Since she started the medication, the patient had no urinary tract infection However, she is concerned about possible side effects of long-term antibiotic use Also, the patient complains of urinary incontinence Not a lot, only drops However it smells bad and it bothers her She denies urgency and urgency urinary incontinence. Frequency: No, urinates every 3 hours during the day Nocturia: Yes, 1 x per night Enuresis: No Pad use: none Feels like she empties her bladder well. Denies ball/bulge in thevagina. No macroscopic hematuria. Sexual Activity: No; Dyspareunia: N/A Constipation: No Other bowel problems: None. Past Surgical History: Procedure Laterality Date ANKLE SURGERY Left ANKLE SURGERY BICEPS TENDON REPAIR BLADDER SURGERY BLADDER SURGERY 06/09/2019 ROBOTIC ASSISTED ABDOMINAL SACROCOLPOPEXY BILATERAL SALPINGO- OOPHORECTOMY,POSTERIOR REPAIR,SYNTHETIC MID URETHRAL SLING,CYSTOSCOPY CHOLECYSTECTOMY 1985 CHOLECYSTECTOMY COLONOSCOPY COLONOSCOPY 2017 POLYPS COLONOSCOPY 06/08/2021 SHOULDER SURGERY TOTAL KNEE ARTHROPLASTY Right 01/20/2018 TOTAL VAGINAL HYSTERECTOMY 1987 TUMOR REMOVAL behind right ear WRIST SURGERY WRIST SURGERY Left 09/24/2018 Past Medical History: Diagnosis Date Arthritis Diabetes (HCC) Diabetes mellitus (HCC) GERD (gastroesophageal reflux disease) Hepatic hemangioma mri 03/04/2015: Bilobed hepatic hemangioma 7.9 cm Hepatic hemangioma History of blood transfusion History of colon polyps Current Outpatient Medications Medication Sig Dispense Refill carboxymethylcellulose (Refresh Plus) 0.5 % ophthalmic solution 1 drop. chlorhexidine (Peridex) 0.12 % solution cholecalciferol (Vitamin D-3) 25 MCG (1000 UT) capsule Take 25 mcg by mouth in the morning. Cranberry-Vitamin C (Cranberry Concentrate/VitaminC) 25673-534 MG capsule Take by mouth. cyanocobalamin (Vitamin B-12) 1000 MCG tablet Take 1,000 mcg by mouth in the morning. enoxaparin (Lovenox) 40 MG/0.4ML solution prefilled syringe ferrous sulfate 325 (65 Fe) MG EC tablet Take 1 tablet twice daily. Do not crush, chew, or split. FLUoxetine HCl, PMDD, 20 MG tablet Take 20 mg by mouth in the morning. gabapentin (Neurontin) 300 MG capsule Take 600 mg by mouth in the morning. glucose blood (OneTouch Ultra Test) test strip Inject 1 each into the skin. insulin degludec (Tresiba) 100 UNIT/ML injection Inject 35 Units under the skin. Ivabradine HCl 7.5 MG tablet Take by mouth. Lantus SoloStar 100 UNIT/ML pen losartan (Cozaar) 50 MG tablet Take 50 mg by mouth in the morning. metoprolol tartrate (Lopressor) 25 MG tablet Take 25 mg by mouth in the morning and 25 mg in the evening. ondansetron (Zofran) 4 MG tablet pregabalin (Lyrica) 100 MG capsule probenecid (Benemid) 500 MG tablet SITagliptin (Januvia) 100 MG tablet Take by mouth. No current facility-administered medications for this visit. OB History No obstetric history on file. Allergies Allergen Reactions Baclofen Other Reaction(s): nightmares Aspirin GI bleeding, Nausea And Vomiting, Unknown and Other Ciprofloxacin Nausea And Vomiting and Rash Cyclobenzaprine Nausea And Vomiting, Other and Unknown Mood changes - irritable Empagliflozin Other Other reaction(s): Unknown Irritability Erythromycin Nausea Only, Cough, Other and Unknown severe stomach pain Carbidopa W-Levodopa Unknown [place] ([place]) Hydrocodone-Acetaminophen Other Acetaminophen Nausea And Vomiting and Unknown Buprenorphine Rash Capsaicin Nausea And Vomiting and Rash Carbidopa Nausea And Vomiting and Rash Carbidopa-Levodopa Other and Unknown Nightmares Chlorhexidine Rash Gluten Meal Nausea Only Wound Dressing Adhesive Rash Physical Exam Assessment: Diagnosis Plan 1. Recurrent UTI POCT urinalysis dipstick manually resulted Urine culture Complete Urinalysis methenamine hippurate (Hiprex) 1 g tablet estradiol (Estrace) 0.1 MG/GM vaginal cream I spent a total time of 40 minutes caring for this patient today. The patient was seen and a chart review was performed. I have also spent time communicating results to the patient, counseling/educating the patient, documenting in the medical record and ordering the necessary tests, medications. I discussed the diagnosis and importance of compliance with the treatment plan. We spent time discussing recurrent urinary tract infections. Urinary tract infection (UTI) is one of the most common infections. Approximately 50 percent of adult women report that they have had a UTI at some time during their life. Some women are prone to recurring episodes of cystitis. Factors that may predispose a woman to repeated episodes of cystitis include: sexual activity, use of spermicides, genetic factors, a new sex partner, vaginal atrophy or voiding dysfunction. In addition, a history of previous UTIs is a strong risk factor. We also discussed that we don't usually do any radiologic evaluation of urinary tract infections unless the problem persists with treatment or is associated with unusual organisms. We discussed the risks and benefits of prophylaxis including daily prophylaxis vs postcoital prophylaxis. We also discussed methods for preventing recurrent UTIs. Some methods of prevention include changesin 1) Contraception -- Women who develop frequent UTIs and use spermicides, particularly those who also use a contraceptive diaphragm, may be encouraged to use an alternate method of control. 2) Cranberry products -- although more definitive studies are needed cranberry supplements have been shown to decrease the ability of E. coli to stick to the cells lining the urinary tract. 3) Increasing fluid intake and urinating after intercourse -- Although clinical studies have not proven that increasing fluid intake (for a total of 32 to 64 ounces of fluid per day from food or fluids) or urinating soon after intercourse can prevent infection, we recommend this because it is certainly not harmful. Although excessive fluid intake could change the pH of the urine resulting in increased infections. 4) Postmenopausal women -- may benefit from the use of a vaginal estrogen. Vaginal estrogen isavailable in a flexible ring that is worn in the vagina for three months (eg, Estring ), a small tablet (Vagifem ), or a cream (eg, Premarin or Estrace ). 5) Antibiotics -- can be given in several different ways: Continuous use of antibiotics -- A low dose of an antibiotic may be taken daily or three times per week for six months to several years. Antibiotics following intercourse -- In women who develop urinary tract infections after sexual intercourse, a single low dose antibiotic after intercourse is often effective in preventing infection. Self- treatment -- Begin antibiotics at the first sign of a UTI. Plan: Estrace vaginal cream, methenamine, and as needed Azo. Follow-up with my partner Ms. NelsonCAMILLA in 6 months. documented in this [facility]09-04-2024 History of Present illness Narrative* Tess Ontiveros, - 05/27/2024 10:00 AM EDT Subjective Patient ID: Tristen Gomez is a 73 y.o. female who presents for Follow-up (Follow up from hospital follow up /), Fatigue (Feels she is not getting any energy back from surgery,), and Irregular Heart Beat (Stated has been in 100s ). HPI Here today for follow up from her hospital follow up with Dr. Nick--- She had a L3-[address] Pablo on 04/21/24. She has been concerned she has a UTI, UA showed leukocytes, calcium oxalate crystals, bacteria, and6-10 RBCs but culture was negative. She states she was not treated with antibiotics. She has multiple allergies. Also had vaginal itching - was tx with diflucan by Dr. Nick on 05/11/24. Saw urology years ago for hx recurrent UTI- [facility] Denies hx kidney stones. No dysuria, hematuria now +pressure +freq Chronic RUQ / epigastric pain since 2016- has had EGD in past -- states has hx duodenal ulcers Hx cholecystectomy Not taking PPI now- only uses as needed and has not found it to be helpful States this pain is not new She had an EKG done on 04/24/24 that showed unusual P axis, possible ectopic atrial rhythm with PACs Follows with Dr. Awan - saw him 05/08/24 for follow up- he thought her elevated HR was due to NOHELIA - not taking iron now because no one prescribed it to me She feels exhausted Doesn't feel well since the surgery HR elevated - low 100s at home She is taking losartan for her diabetes - does not check BP at home No drainage from incision but still notes pain there - feels like it should be better than it is - she followed up with ortho on 05/13/24 for this Using a walker Current Outpatient Medications Medication Sig Dispense Refill blood-glucose meter (ThinkUpuch Ultra2 Meter) misc 1 each 6 times a day. 1 each 0 carboxymethylcellulose (Refresh Tears) 0.5 % ophthalmic solution 1 drop if needed for dry eyes. cholecalciferol (Vitamin D-3) 25 MCG (1000 UT) capsule Take 1 capsule (25 mcg) by mouth once daily. cranberry conc-ascorbic acid 300-100 mg capsule Take by mouth. cyanocobalamin (Vitamin B-12) 1,000 mcg tablet Take 1 tablet (1,000 mcg) by mouth once daily. ferrous sulfate, 325 mg ferrous sulfate, tablet Take 1 tablet (325 mg) by mouth once daily with breakfast. 30 tablet 11 gabapentin (Neurontin) 300 mg capsule Take 2 capsules (600 mg) by mouth once daily. insulin degludec (Tresiba U-100 Insulin) 100 unit/mL injection Inject 35 Units under the skin once daily in the morning. 31.5 mL 1 insulin lispro-aabc (Lyumjev U-100 Insulin) 100 unit/mL solution Inject 10 Units under the skin once daily. Inject 5 units before breakfast and 9 units before lunch and dinner 45 mL 5 lancets (PAAYTouch UltraSoft Lancets) misc 1 each 4 times a day before meals. 200 each 11 losartan (Cozaar) 50 mg tablet TAKE 1 TABLET DAILY 90 tablet 1 multivitamin tablet Take 1 tablet by mouth once daily. PAAYTouch Ultra Test strip Inject 1 each into the skin 4 times a day before meals. 200 strip 11 SITagliptin phosphate (Januvia) 100 mg tablet Take by mouth. TechLITE Pen Needle 32 gauge x 5/32 needle Inject 1 each under the skin 4 times a day before meals. 200 each 11 amoxicillin-pot clavulanate (Augmentin) 500-125 mg tablet Take 1 tablet (500 mg) by mouth 2 times aday for 7 days. 14 tablet 0 blood pressure monitor kit Use to check blood pressure once daily 1 kit 0 ferrous sulfate 325 (65 Fe) MG EC tablet Take 1 tablet twice daily. Do not crush, chew, or split. 60 tablet 11 omeprazole (PriLOSEC) [address] capsule Take 1 capsule (20 mg) by mouth if needed. No current facility-administered medications for this visit. Review of Systems Constitutional: Positive for fatigue. Negative for chills and fever. Respiratory: Positive for cough (dry). Negative for shortness of breath. Cardiovascular: Negative for chest pain. Gastrointestinal: Positive for abdominal pain and nausea. Negative for blood in stool, constipation, diarrhea and vomiting. Genitourinary: Positive for frequency. Negative for dysuria, hematuria and urgency. Musculoskeletal: Positive for back pain. Skin: Negative for rash. Objective BP 108/73 (BP Location: Left arm, Patient Position: Sitting, BP Cuff Size: Adult) Pulse (!) 113 Temp 36.6 C (97.8 F) (Temporal) Resp 16 Wt 105 kg (232 lb 3.2 oz) SpO2 96% BMI 37.48 kg/m Physical Exam Constitutional: Well developed, well nourished, alert and in no acute distress. Head and Face: Normocephalic, atraumatic. Eyes: Normal external exam. Neck: Supple, no lymphadenopathy or masses. Cardiovascular: Regular rhythm, tachycardic, normal S1 and S2, no murmurs, gallops, or rubs. No peripheral edema. Pulmonary: No respiratory distress, lungs clear to auscultation bilaterally. No wheezes, rhonchi, rales. Abdomen: Soft, nontender, nondistended, normal bowel sounds. No masses palpated. Back: Lumbar incision c/d/I, no drainage. No ronan erythema, does have some mild skin darkening surrounding lower incision but does not appear infected. Skin: Warm, well perfused, normal skin turgor and color, no lesions or rashes noted. Neurologic: Cranial nerves II-XII grossly intact. Psychiatric: Mood calm and affect normal. Assessment/Plan Problem List Items Addressed This Visit Vitamin D deficiency Relevant Orders Vitamin D 25-Hydroxy,Total (for eval of Vitamin D levels) HTN (hypertension), benign Relevant Medications blood pressure monitor kit Alexis's thyroiditis Relevant Orders TSH with reflex to Free T4 if abnormal Duodenal ulcer Recurrent UTI Relevant Medications amoxicillin-pot clavulanate (Augmentin) 500-125 mg tablet Other Relevant Orders Referral to Urology Urine Culture Urinalysis with Reflex Microscopic Anemia Relevant Medications ferrous sulfate 325 (65 Fe) MG EC tablet Tachycardia - Primary Relevant Orders Holter or Event 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 Awan again on heart rate and EKG - ectopic atrial rhythm does appearnew since the surgery Restart your omeprazole daily for upper abdominal pain Schedule with GI doctor Tess Ontiveros DO 05/27/2024 [facility] 1(197) 410-801009-04-2024 Instructions* Patient Instructions* Tess Ontiveros DO - 05/27/2024 10:00 AM EDT Take antibiotics for 1 week Repeat UA after antibiotics complete Get labs done at that time EKG today 7 day heart monitor ordered Please follow up with Dr. Awan again on heart rate and EKG Restart your omeprazole daily for upper abdominal pain Schedule with GI doctor documented in this [facility] Work Phone: 1(245) 608-838908-27-2024 Evaluation + Plan note* Assessment & Plan Note - Cat Mathews MD - 05/19/2024 7:45 AM EDTAssociated Problem(s): Urinary tract infection To obtain urine culture today For follow up in 4 months [facility] Work Phone: [phone]) 622-297908-27-2024 Evaluation + Plan note* Assessment & Plan Note - Cat Mathews MD - 05/19/2024 7:45 AM EDTAssociated Problem(s): Multiple thyroid nodules For thyroid ultrasound in July 2024 as wanted by ENT [facility] Work Phone: [phone] 499-927008-27-2024 Evaluation + Plan note* Assessment & Plan Note - Cat Mathews MD - 05/19/2024 7:45 AM EDTAssociated Problem(s): Alexis's thyroiditis Thyroid continues to function normally [facility] Work Phone: [phone] Miscellaneous Notes* Assessment & Plan Note - Cat Mathews MD - 05/19/2024 7:45 AM EDTAssociated Problem(s): Urinary tract infection To obtain urine culture today For follow up in 4 months * Assessment & Plan Note - Cat Mathews MD - 05/19/2024 7:45 AM EDTAssociated Problem(s): Multiple thyroid nodules For thyroid ultrasound in July 2024 as wanted by ENT * Assessment & Plan Note - Cat Mathews MD - 05/19/2024 7:45 AM EDTAssociated Problem(s): Alexis's thyroiditis Thyroid continues to function normally * Assessment & Plan Note - Cat Mathews MD - 05/19/2024 7:44 AM EDTAssociated Problem(s): Type 2 diabetes mellitus, with long-term current use of insulin (Multi) To continue Tresiba 35 units subcutaneous every morning To increase Lyumjev 10 units before every meal Please commence an insulin sliding scale with before meals as follows: 150-200mg/dL - 2 units 201-250mg/dL - 4 units 251-300 mg/dL - 6 untis 301-350mg/dL - 8 units >351mg/dL - 10 units To continue Januvia 100mg once daily documented in this [facility] Work Phone: [phone]) 962-156108-27-2024 Evaluation + Plan note* Assessment & Plan Note - Cat Mathews MD - 05/19/2024 7:44 AM EDTAssociated Problem(s): Type 2 diabetes mellitus, with long-term current use of insulin (Multi) To continue Tresiba 35 units subcutaneous every morning To increase Lyumjev 10 units before every meal Please commence an insulin sliding scale with before meals as follows: 150-200mg/dL - 2 units 201-250mg/dL - 4 units 251-300 mg/dL - 6 untis 301-350mg/dL - 8 units >351mg/dL - 10 units To continue Januvia 100mg once daily [facility] Work Phone: [phone]) 965-368208-26-2024 History of Present illness Narrative* Cat Mathews MD - 05/18/2024 9:00 AM EDT Images from the original note were not included. Subjective Tristen Gomez is a 73 y.o. female who presents for follow up for Type 2 diabetes mellitus. The initial diagnosis of diabetes was made at age 43 yeras. She started insulin therapy in February 2020 She states that testing was positive for Hashimotot's in 2017. She has not been on thyroid replacement therapy. She states that she was seeing ENT for bilateral neck nodules. She underwent a laminectomy on April 21, 2024. She has been experiencing fatigue, headache and tachycardia. She suspects that she may have a UTI. Her glucose values have been more elevated and she has increased the amount of prandial insulin to combat this. She has a gout flare up. She denies steroid use. Known complications due to diabetes included peripheral neuropathy and CAD. Cardiovascular risk factors include advanced age (older than 55 for men, 65 for women), diabetes mellitus, and obesity (BMI >= 30 kg/m2). The patient is on an ALEXANDER inhibitor or angiotensin II receptor carlos. The patient has not been previously hospitalized due to diabetic ketoacidosis. Current symptoms/problems include none. Her clinical course has been stable. Current diabetes regimen is as follows: Lantus 35 units subcutaneous every morning Humalog 5 - 9 - 9 units TID AC Januvia 100mg once daily The patient is currently checking the blood glucose. Patient is using: glucometer Hypoglycemia frequency: Symptoms begin in the 80s Hypoglycemia awareness: Yes Exercise: denies Review of Systems Constitutional: Positive for fatigue. Negative for chills. Eyes: Positive for visual disturbance. Respiratory: Positive for cough (Dry; since surgery). Endocrine: Positive for cold intolerance. Genitourinary: Positive for difficulty urinating. Pelvic pain Musculoskeletal: Positive for back pain. Skin: Positive for rash. All other systems reviewed and are negative. Objective BP 118/62 (BP Location: Left arm, Patient Position: Sitting, BP Cuff Size: Adult) Pulse 106 Ht 1.676 m (5' 6) Wt 106 kg (234 lb) BMI 37.77 kg/m Physical Exam Vitals and nursing note reviewed. Constitutional: General: She is not in acute distress. Appearance: Normal appearance. She is obese. HENT: Head: Normocephalic and atraumatic. Nose: Nose normal. Mouth/Throat: Mouth: Mucous membranes are moist. Eyes: Extraocular Movements: Extraocular movements intact. Cardiovascular: Pulses: Dorsalis pedis pulses are 2+ on the right side and 2+ on the left side. Pulmonary: Effort: Pulmonary effort is normal. Musculoskeletal: General: Normal range of motion. Right foot: Normal range of motion. No deformity. Left foot: Normal range of motion. No deformity. Feet: Right foot: Protective Sensation: 5 sites tested. 5 sites sensed. Skin integrity: Skin integrity normal. No ulcer or blister. Toenail Condition: Right toenails are normal. Left foot: Protective Sensation: 5 sites tested. 5 sites sensed. Skin integrity: Skin integrity normal. No ulcer or blister. Toenail Condition: Left toenails are normal. Skin: General: Skin is warm. Comments: Healed laminectomy scar Neurological: Mental Status: She is alert and oriented to person, place, and time. Psychiatric: Mood and Affect: Mood normal. Lab Review Glucose (mg/dL) Date Value 04/24/2024 175 (H) 04/23/2024 216 (H) 04/22/2024 244 (H) Hemoglobin A1C (%) Date Value 02/25/2024 6.4 (H) 10/21/2023 6.3 (H) 08/02/2022 6.6 (A) 03/10/2020 9.4 (H) 06/25/2018 6.4 12/11/2017 6.3 Bicarbonate (mmol/L) Date Value 04/24/2024 25 04/23/2024 27 04/22/2024 23 Urea Nitrogen (mg/dL) Date Value 04/24/2024 37 (H) 04/23/2024 32 (H) 04/22/2024 24 (H) Creatinine (mg/dL) Date Value 04/24/2024 1.02 04/23/2024 0.94 04/22/2024 0.84 Lab Results Component Value Date TSH 1.59 02/25/2024 THYROIDPAB 151 (H) 10/21/2023 Lab Results Component Value Date TSH 1.59 02/25/2024 THYROIDPAB 151 (H) 10/21/2023 Health Maintenance: Foot Exam: February 24, 2024 Eye Exam: September 2023 Urine Albumin: October 21, 2023 Thyroid Ultrasound FINDINGS: Right thyroid lobe: 1.7 x 1.9 x 4.3 cm (AP x TRV x SAG). The right thyroid lobe is normal in size and the parenchyma has normal homogeneous echogenicity. Left thyroid lobe: 1.4 x 1.8 x 4.6 cm (AP x TRV x SAG). The left thyroid lobe is normal in size andthe parenchyma has normal homogeneous echogenicity. Thyroid isthmus AP diameter: 0.3 cm Nodule 1: Location: Right mid thyroid lobe Size: 1.4 x 1.0 x 1.2 cm (AP x TRV x SAG) Composition: Solid Echogenicity: Isoechoic Margin: Smooth Echogenic foci: None ACR total points: 3 Nodule 2: Location: Left lower thyroid lobe Size: 0.9 x 0.9 x 0.7 cm (AP x TRV x SAG) Composition: Solid Echogenicity: Isoechoic Margin: Smooth Echogenic foci: Rim calcifications are present ACR total points: 5 Other findings None Impression Nodule 1: ACR TI-RADS 2017 Category: TR3. Based on ACR TI-RADS criteria, no follow-up is necessary. Nodule 2: ACR TI-RADS 2017 Category: TR4. Based on ACR TI-RADS criteria, no follow-up is necessary. Assessment/Plan 73 year old female presents for follow up for type II DM. Her blood pressure is at goal. She also has positivity for anti-TPO but has not been on thyroid replacement therapy. Type 2 diabetes mellitus, with long-term current use of insulin (Multi) To continue Tresiba 35 units subcutaneous every morning To increase Lyumjev 10 units before every meal Please commence an insulin sliding scale with before meals as follows: 150-200mg/dL - 2 units 201-250mg/dL - 4 units 251-300 mg/dL - 6 untis 301-350mg/dL - 8 units >351mg/dL - 10 units To continue Januvia 100mg once daily Alexis's thyroiditis Thyroid continues to function normally Multiple thyroid nodules For thyroid ultrasound in July 2024 as wanted by ENT Urinary tract infection To obtain urine culture today For follow up in 4 months [facility]: [phone]) 540-581908-26-2024 Instructions* Patient Instructions* Cat Mathews MD - 05/18/2024 9:00 AM EDT Thank you for choosing [facility] for your health care needs. If you have any questions, concerns or medical needs, please feel free to contact our office at . Please ensure you complete your blood work one week before the next scheduled appointment. To continue Tresiba 35 units subcutaneous every morning To increase Lyumjev 10 units before every meal Please commence an insulin sliding scale with before meals as follows: 150-200mg/dL - 2 units 201-250mg/dL - 4 units 251-300 mg/dL - 6 untis 301-350mg/dL - 8 units >351mg/dL - 10 units To continue Januvia 100mg once daily To obtain urine culture today For thyroid ultrasound in July 2024 as wanted by ENT For follow up in 4 months [facility] Work Phone: [phone]) 822-116008-21-2024 History of Present illness Narrative* Yanelis Ayala PA-C - 05/13/2024 1:00 PM EDT Tristen is 3 weeks postop from a L3-[address] Pablo on 04/21. Her and her friend accompanying her started screaming that none of her doctors care and she has notbeen able to get a hold of anyone. Her friend is screaming about having to see PAs instead of doctors. She is actually recovering well from surgery. She does have residual incisional pain that she describes as a burning. She has intermittent radiculopathy although improved since surgery. She is ambulating with a walker. She has been experiencing burning with urination and believes she has a UTI. No urinalysis has been completed. She recently had labs drawn to check for iron deficiency anemia. Her hemoglobin is 10 and her iron levels were low. On exam, balanced gait with use of walker. Full strength of the lower extremities bilaterally. Incision healing well, no evidence of infection. I recommended she reach out to the provider that ordered the CBC and iron studies. In the meantime she is going to start some [id number] iron. A urinalysis was placed due to her symptoms of urinary tract infection. If this comes back positive for UTI will send in some Bactrim for her. She cancontinue to increase activities as tolerated, she should lift her weight restriction 5 pounds per week. She does not need refills medications today. She will follow-up with me in 3 months for clinical reevaluation. This note was dictated using speech recognition software and was not corrected for spelling or grammatical errors documented in [facility] Work Phone: [phone]) [phone] Evaluation + Plan note* Assessment & Plan Note - Dean Nick MD - 05/11/2024 10:30 AM EDTAssociated Problem(s): HTN (hypertension), benign BP low today - on Cozaar 50 mg daily - hold - check at home and follow up with Dr ontiveros Pt will check BP at home and record daily Only take Medication if BP >120/80 [facility] Work Phone: 1([phone]) 463-634708-19-2024 Evaluation + Plan note* Assessment & Plan Note - Dean Nick MD - 05/11/2024 10:30 AM EDTAssociated Problem(s): Hyperlipidemia [facility] Work Phone: [phone]) 483-715608-19-2024 Evaluation + Plan note* Assessment & Plan Note - Dean Nick MD - 05/11/2024 10:30 AM EDTAssociated Problem(s): Hypothyroidism Dr Mathews- appointment next Saturday T [facility] Work Phone: [phone]) 363-501408-19-2024 Evaluation + Plan note* Assessment & Plan Note - Dean Nick MD - 05/11/2024 10:30 AM EDTAssociated Problem(s): Type 2 diabetes mellitus, with long-term current use of insulin (Multi) Dr Mathews- appointment next Saturday [facility] Work Phone: [phone]) 407-980808-19-2024 Evaluation + Plan note* Assessment & Plan Note - Dean Nick MD - 05/11/2024 10:30 AM EDTAssociated Problem(s): Spinal stenosis of lumbar region Follow with Dr Pablo [facility] Work Phone: [phone]) 317-710608-19-2024 History of Present illness Narrative* Dean Nick MD - 05/11/2024 10:30 AM EDT Subjective Tristen Gomez. Is 73 y.o.. female. Here for follow up office visit- Chief Complaint Patient presents with Vaginal Itching Inside the vulva- 3 days ago. Stopped Keflex yesterday AM Pt was taking Keflex for UTI Lab results Dr. Awan has concerns about WBC- Dr. Pablo did 04/24 WBC was 13.2 on 04/24/24- WBC was 19.6 on 04/23/24 Pt was on dexamthasone Will recheck today H/H/ low - post- order placed anemia - Dr Awan-recent labs- iron low and ferritin elevated Pt very angry she is not seeing her PCP today - wants to make sure she is scheduled back to see herfor follow up HPI: Dr Ontiveros pt When is follow up with Dr Pablo? 05/13 What are current home glucose levels? Slightly elevated, since [facility] Mid 200's follow up with Sample Preparation Supervisor - 05/18/24 How is patient doing today? Walking well, winded but doing well Follow up for ED/UC/Hospital admission: Date(s): Admission Date:04/25/2024 Discharge Date: 05/02/2024 Today - 9 days post discharge GARRY 2 day post discharge Dx: AFTERCARE FOLLOWING JOINT REPLACEMENT SURGERY SPINAL STENOSIS, LUMBAR REGION WITH NEUROGENIC CLAUDICATION TYPE 2 DIABETES MELLITUS WITHOUT COMPLICATIONS MUSCLE WEAKNESS (GENERALIZED) DIFFICULTY IN WALKING, NOT ELSEWHERE CLASSIFIED ABNORMAL POSTURE GASTRO-ESOPHAGEAL REFLUX DISEASE WITHOUT ESOPHAGITIS UNSTEADINESS ON FEET ESSENTIAL (PRIMARY) HYPERTENSION PERSONAL HISTORY OF URINARY (TRACT) INFECTIONS 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 Patient is now s/p L3-4 laminectomy on 04/[address] Pablo. On the day of surgery, patient was identified in the pre-operative holding area and agreeable to proceed with surgery. Written consent was obtained. Please see operative note for further details of this procedure. The surgery went without complications. Patient received 24hours of rebecca-operative antibiotics. Patient recovered in the PACU before transfer to a regular nursing floor. The patient was monitored as an inpatient postoperatively for drain output, therapy, andpain control. The drain was pulled when output was appropriately low. The patient had good pain control, was voiding, and was neurovascularly stable at the time of discharge. Patient will follow-up with Dr. Pablo in 3-4 weeks for post-operative visit. Prescription for oxycodone 5mg or percocet 5mg-325mg q4-6 hr #40 provided due to exceedingly painful nature of surgical procedure. Patients undergoing these operations typically use 1-2 pills q4-6 hours for the first 1-2 weeks. The use will be monitored postoperatively by Dr. Pablo, and weaned appropriately during the recovery period. Postop anemia Poor control glucose in hospital- Hgba1c 6.3 in September On insulin Prisca Time spent reviewing labs with pt and discussing current BP and Medication Lab on 05/08/2024 Component Date Value Ref Range Status Iron 05/08/2024 11 (L) 35 - 150 ug/dL Final UIBC 05/08/2024 270 110 - 370 ug/dL Final TIBC 05/08/2024 281 240 - 445 ug/dL Final % Saturation 05/08/2024 4 (L) 25 - 45 % Final Ferritin 05/08/2024 204 (H) 8 - 150 ng/mL Final Admission on 04/20/2024, Discharged on 04/25/2024 Component Date Value Ref Range Status POC Fingerstick Blood Glucose 04/21/2024 108 (A) 70 - 100 mg/dl In process POCT Glucose 04/21/2024 154 (H) 74 - 99 mg/dL Final WBC 04/22/2024 12.1 (H) 4.4 - 11.3 x10*3/uL Final nRBC 04/22/2024 0.0 0.0 - 0.0 /100 WBCs Final RBC 04/22/2024 3.48 (L) 4.00 - 5.20 x10*6/uL Final Hemoglobin 04/22/2024 10.9 (L) 12.0 - 16.0 g/dL Final Hematocrit 04/22/2024 33.7 (L) 36.0 - 46.0 % Final MCV 04/22/2024 97 80 - 100 fL Final MCH 04/22/2024 31.3 26.0 - 34.0 pg Final MCHC 04/22/2024 32.3 32.0 - 36.0 g/dL Final RDW 04/22/2024 12.5 11.5 - 14.5 % Final Platelets 04/22/2024 233 150 - 450 x10*3/uL Final Glucose 04/22/2024 244 (H) 74 - 99 mg/dL Final Sodium 04/22/2024 136 136 - 145 mmol/L Final Potassium 04/22/2024 5.0 3.5 - 5.3 mmol/L Final Chloride 04/22/2024 104 98 - 107 mmol/L Final Bicarbonate 04/22/2024 23 21 - 32 mmol/L Final Anion Gap 04/22/2024 14 10 - 20 mmol/L Final Urea Nitrogen 04/22/2024 24 (H) 6 - 23 mg/dL Final Creatinine 04/22/2024 0.84 0.50 - 1.05 mg/dL Final eGFR 04/22/2024 73 >60 mL/min/1.73m*2 Final Calculations of estimated GFR are performed using the 2020 CKD-EPI Study Refit equation without therace variable for the IDMS-Traceable creatinine methods. https://jasn.asnjournals.org/content/early//ASN.9292674424 Calcium 04/22/2024 8.5 (L) 8.6 - 10.6 mg/dL Final POCT Glucose 04/22/2024 252 (H) 74 - 99 mg/dL Final POCT Glucose 04/22/2024 254 (H) 74 - 99 mg/dL Final POCT Glucose 04/22/2024 292 (H) 74 - 99 mg/dL Final WBC 04/23/2024 19.6 (H) 4.4 - 11.3 x10*3/uL Final nRBC 04/23/2024 0.0 0.0 - 0.0 /100 WBCs Final RBC 04/23/2024 3.52 (L) 4.00 - 5.20 x10*6/uL Final Hemoglobin 04/23/2024 10.9 (L) 12.0 - 16.0 g/dL Final Hematocrit 04/23/2024 33.6 (L) 36.0 - 46.0 % Final MCV 04/23/2024 96 80 - 100 fL Final MCH 04/23/2024 31.0 26.0 - 34.0 pg Final MCHC 04/23/2024 32.4 32.0 - 36.0 g/dL Final RDW 04/23/2024 12.3 11.5 - 14.5 % Final Platelets 04/23/2024 256 150 - 450 x10*3/uL Final Glucose 04/23/2024 216 (H) 74 - 99 mg/dL Final Sodium 04/23/2024 135 (L) 136 - 145 mmol/L Final Potassium 04/23/2024 4.8 3.5 - 5.3 mmol/L Final Chloride 04/23/2024 103 98 - 107 mmol/L Final Bicarbonate 04/23/2024 27 21 - 32 mmol/L Final Anion Gap 04/23/2024 10 10 - 20 mmol/L Final Urea Nitrogen 04/23/2024 32 (H) 6 - 23 mg/dL Final Creatinine 04/23/2024 0.94 0.50 - 1.05 mg/dL Final eGFR 04/23/2024 64 >60 mL/min/1.73m*2 Final Calculations of estimated GFR are performed using the 2020 CKD-EPI Study Refit equation without therace variable for the IDMS-Traceable creatinine methods. https://jasn.asnjournals.org/content/early//ASN.3483058722 Calcium 04/23/2024 9.0 8.6 - 10.6 mg/dL Final POCT Glucose 04/22/2024 354 (H) 74 - 99 mg/dL Final POCT Glucose 04/23/2024 199 (H) 74 - 99 mg/dL Final POCT Glucose 04/23/2024 152 (H) 74 - 99 mg/dL Final POCT Glucose 04/23/2024 175 (H) 74 - 99 mg/dL Final WBC 04/24/2024 13.2 (H) 4.4 - 11.3 x10*3/uL Final nRBC 04/24/2024 0.0 0.0 - 0.0 /100 WBCs Final RBC 04/24/2024 3.49 (L) 4.00 - 5.20 x10*6/uL Final Hemoglobin 04/24/2024 10.7 (L) 12.0 - 16.0 g/dL Final Hematocrit 04/24/2024 33.1 (L) 36.0 - 46.0 % Final MCV 04/24/2024 95 80 - 100 fL Final MCH 04/24/2024 30.7 26.0 - 34.0 pg Final MCHC 04/24/2024 32.3 32.0 - 36.0 g/dL Final RDW 04/24/2024 12.6 11.5 - 14.5 % Final Platelets 04/24/2024 212 150 - 450 x10*3/uL Final Glucose 04/24/2024 175 (H) 74 - 99 mg/dL Final Sodium 04/24/2024 134 (L) 136 - 145 mmol/L Final Potassium 04/24/2024 4.7 3.5 - 5.3 mmol/L Final Chloride 04/24/2024 101 98 - 107 mmol/L Final Bicarbonate 04/24/2024 25 21 - 32 mmol/L Final Anion Gap 04/24/2024 13 10 - 20 mmol/L Final Urea Nitrogen 04/24/2024 37 (H) 6 - 23 mg/dL Final Creatinine 04/24/2024 1.02 0.50 - 1.05 mg/dL Final eGFR 04/24/2024 58 (L) >60 mL/min/1.73m*2 Final Calculations of estimated GFR are performed using the 2020 CKD-EPI Study Refit equation without therace variable for the IDMS-Traceable creatinine methods. https://jasn.asnjournals.org/content/early//ASN.0830580257 Calcium 04/24/2024 9.0 8.6 - 10.6 mg/dL Final POCT Glucose 04/23/2024 182 (H) 74 - 99 mg/dL Final POCT Glucose 04/24/2024 173 (H) 74 - 99 mg/dL Final POCT Glucose 04/24/2024 259 (H) 74 - 99 mg/dL Final Troponin I, High Sensitivity (CMC) 04/24/2024 4 0 - 34 ng/L Final Ventricular Rate 04/24/2024 76 BPM Final Atrial Rate 04/24/2024 76 BPM Final AK Interval 04/24/2024 96 ms Final QRS Duration 04/24/2024 88 ms Final QT Interval 04/24/2024 370 ms Final QTC Calculation(Bazett) 04/24/2024 416 ms Final P Post [place] 04/24/2024 -51 degrees Final R Post [place] 04/24/2024 -11 degrees Final T Post [place] 04/24/2024 34 degrees Final QRS Count 04/24/2024 13 beats Final Q Onset 04/24/2024 214 ms Final P Onset 04/24/2024 166 ms Final P Offset 04/24/2024 194 ms Final T Offset 04/24/2024 399 ms Final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 of lumbar region acute Status post laminectomy with spinal fusion acute Hypertension chronic Low back pain chronic Morbid obesity with BMI of 40.0-44.9, adult chronic Polyneuropathy chronic Intertriginous dermatitis associated with moisture resolved [facility] Work Phone: Evaluation note* Diagnosis Onset Date Resolution Status Carpal tunnel syndrome, left chronic Cubital tunnel syndrome on left chronic Debility acute Impaired gait and mobility a cute Status post laminectomy with spinal fusion acute Low back pain chronic Dysuria resolved Intertriginous dermatitis associated with moisture resolved Status post laminectomy with spinal fusion acute Status post laminectomy with spinal fusion acute History of DVT (deep vein thrombosis) noneactive Bilateral lower extremity edema noneactive [facility] Work Phone: Evaluation note* Diagnosis Onset Date Resolution Status Osteopenia acute Carpal tunnel syndrome, left chronic Cubital tunnel syndrome on left chronic Debility acute Impaired gait and mobility a cute Status post laminectomy with spinal fusion acute Low back pain chronic Dysuria resolved Intertriginous dermatitis associated with moisture resolved Status post laminectomy with spinal fusion acute Status post laminectomy with spinal fusion acute History of DVT (deep vein thrombosis) noneactive Bilateral lower extremity edema noneactive [facility] Work Phone: Evaluation note* Diagnosis Onset Date Resolution Status Status post laminectomy with spinal fusion acute History of DVT (deep vein thrombosis) noneactive Bilateral lower extremity edema noneactive Breast cancer screening acut e Status post laminectomy with spinal fusion acute Hypertension chronic Diabetes chronic Hypertension chronic Urinary tract infection none active [facility] Work Phone: Evaluation note* Diagnosis Onset Date Resolution Status Breast cancer screening acut e Status post laminectomy with spinal fusion acute Hypertension chronic Diabetes chronic Hypertension chronic Urinary tract infection none active Trigger finger, left middle finger acute [facility] Work Phone: Evaluation note* Diagnosis Type 2 diabetes mellitus with hyperglycemia, with long-term current use of insulin (CMS/HCC)- Primary HTN (hypertension), benign Essential hypertension, benign Recurrent major depressive disorder, in partial remission (CMS/HCC) Morbid (severe) obesity due to excess calories (CMS/HCC) documented in this encounter [facility] Work Phone: Evaluation note* Diagnosis COVID-19 virus infection- Primary documented in this encounter [facility] Work Phone: Evaluation note* Diagnosis Neoplasm of uncertain behavior of thyroid gland [facility] [employer]* Diagnosis Fracture of unspecified metatarsal bone(s), unspecified foot, initial encounter for closed fracture- Primary Stress fracture, right foot, initial encounter for fracture Idiopathic chronic gout, unspecified site, with tophus (tophi) Nondisplaced fracture of fourth metatarsal bone, right foot, initial encounter for closed fracture Type 2 diabetes mellitus without complications (CMS/HCC) (HCC) Type 2 diabetes mellitus with diabetic peripheral angiopathy without gangrene (HCC) [facility] Elevated AST (SGOT)- Primary Recurrent UTI Urinary tract infection, site not specified HTN (hypertension), benign Essential hypertension, benign Class 2 obesity without serious comorbidity with body mass index (BMI) of 37.0 to 37.9 in adult, unspecified obesity type Type 2 diabetes mellitus with hyperglycemia, with long-term current use of insulin (CMS/HCC) Fatty liver Other chronic nonalcoholic liver disease History of colon polyps Mild CAD documented in this encounter [facility] Work Phone: Evaluation note* Diagnosis Adverse effect of multiple unspecified drugs, medicaments and biological substances, initial encounter- Primary Dermatitis Contact dermatitis and other eczema, due to unspecified cause documented in this encounter [facility] Work Phone: Evaluation note* Diagnosis Hospital discharge follow-up- Primary Other follow-up examination Dysuria Chronic gout of right foot, unspecified cause Acute gout involving toe of right foot, unspecified cause documented in this encounter [facility] Work Phone: Evaluation note* Diagnosis Neoplasm of uncertain behavior of thyroid gland- Primary Neoplasm of uncertain behavior of thyroid gland [facility]* Diagnosis Type 2 diabetes mellitus with hyperglycemia, unspecified whether fci insulin use (CMS/[facility])- Primary Alexis's thyroiditis Chronic lymphocytic thyroiditis Type 2 diabetes mellitus with diabetic neuropathy, with long-term current use of insulin ([facility]) documented in this encounter [facility] Work Phone: Evaluation note* Diagnosis Chronic low back pain without sciatica, unspecified back pain laterality documented in this encounter [facility] Work Phone: Evaluation note* Diagnosis Lumbar radiculopathy- Primary Thoracic or lumbosacral neuritis or radiculitis, unspecified Abnormal coagulation profile Lumbar radiculopathy- Primary Thoracic or lumbosacral neuritis or radiculitis, unspecified Lumbar radiculopathy Thoracic or lumbosacral neuritis or radiculitis, unspecified documented in this encounter [facility] Work Phone: Evaluation note* Diagnosis Lumbar radiculopathy- Primary Thoracic or lumbosacral neuritis or radiculitis, unspecified Routine general medical examination at health care facility- Primary Routine general medical examination at a health care facility HTN (hypertension), benign Essential hypertension, benign Screening mammogram for breast cancer Medicare annual wellness visit, subsequent Mild CAD Type 2 diabetes mellitus with diabetic neuropathy, with long-term current use of insulin (Multi) Class 3 severe obesity without serious comorbidity with body mass index (BMI) of 40.0 to 44.9 in adult, unspecified obesity type (Multi) History of colon polyps Spinal stenosis of lumbar region, unspecified whether neurogenic claudication present Lumbar radiculopathy Thoracic or lumbosacral neuritis or radiculitis, unspecified documented in this encounter [facility] Work Phone: Evaluation note* Diagnosis Other idiopathic peripheral autonomic neuropathy- Primary Type 2 diabetes mellitus with other diabetic neurological complication (HCC) Type 2 diabetes mellitus with diabetic peripheral angiopathy without gangrene (HCC) Idiopathic chronic gout, unspecified site, with tophus (tophi) [facility] [employer]* Diagnosis Lumbar radiculopathy- Primary Thoracic or lumbosacral neuritis or radiculitis, unspecified Alexis's thyroiditis- Primary Chronic lymphocytic thyroiditis Type 2 diabetes mellitus with hyperglycemia, unspecified whether fci insulin use (Multi) Multiple thyroid nodules Nontoxic multinodular goiter Lumbar radiculopathy Thoracic or lumbosacral neuritis or radiculitis, unspecified documented in this encounter [facility] Work Phone: Evaluation note* Diagnosis Recurrent UTI- Primary Urinary tract infection, site not specified [facility] Diagnosis Cystitis- Primary Unspecified cystitis [facility] Diagnosis Type 2 diabetes mellitus with hyperglycemia, with long-term current use of insulin- Primary HTN (hypertension), benign Essential hypertension, benign Recurrent major depressive disorder, in partial remission ([facility]-HCC) Morbid (severe) obesity due to excess calories (Multi) Elevated AST (SGOT)- Primary Recurrent UTI Urinary tract infection, site not specified HTN (hypertension), benign Essential hypertension, benign Class 2 obesity without serious comorbidity with body mass index (BMI) of 37.0 to 37.9 in adult, unspecified obesity type Type 2 diabetes mellitus with hyperglycemia, with long-term current use of insulin Fatty liver Other chronic nonalcoholic liver disease History of colon polyps Mild CAD Type 2 diabetes mellitus with hyperglycemia, unspecified whether fci insulin use (Multi)- Primary Alexis's thyroiditis Chronic lymphocytic thyroiditis Type 2 diabetes mellitus with diabetic neuropathy, with long-term current use of insulin Alexis's thyroiditis- Primary Chronic lymphocytic thyroiditis Type 2 diabetes mellitus with hyperglycemia, unspecified whether bed bug exterminator insulin use (Multi) Multiple thyroid nodules Nontoxic multinodular goiter Routine general medical examination at health care facility- Primary Routine general medical examination at a health care facility HTN (hypertension), benign Essential hypertension, benign Screening mammogram for breast cancer Medicare annual wellness visit, subsequent Mild CAD Type 2 diabetes mellitus with diabetic neuropathy, with long-term current use of insulin Class 3 severe obesity without serious comorbidity with body mass index (BMI) of 40.0 to 44.9 in adult, unspecified obesity type History of colon polyps Spinal stenosis of lumbar region, unspecified whether neurogenic claudication present Hospital discharge follow-up- Primary Other follow-up examination HTN (hypertension), benign Essential hypertension, benign Hyperlipidemia, unspecified hyperlipidemia type Hypothyroidism, unspecified type Type 2 diabetes mellitus with diabetic neuropathy, with long-term current use of insulin Spinal stenosis of lumbar region, unspecified whether neurogenic claudication present Postoperative anemia Unspecified anemia Acute vaginitis Unspecified vaginitis and vulvovaginitis Leukocytosis, unspecified type Acute cystitis without hematuria- Primary Type 2 diabetes mellitus with diabetic neuropathy, with long-term current use of insulin Alexis's thyroiditis Chronic lymphocytic thyroiditis Multiple thyroid nodules Nontoxic multinodular goiter Type 2 diabetes mellitus with hyperglycemia, unspecified whether fci insulin use (Multi) Tachycardia- Primary Unspecified tachycardia SVT (supraventricular tachycardia) ([facility] [place]) Other specified cardiac dysrhythmias Anemia, unspecified type documented in this encounter [facility] Work Phone: Evaluation note* Diagnosis Type 2 diabetes mellitus with hyperglycemia, with long-term current use of insulin- Primary HTN (hypertension), benign Essential hypertension, benign Recurrent major depressive disorder, in partial remission ([facility] [place]) Morbid (severe) obesity due to excess calories (Multi) Elevated AST (SGOT)- Primary Recurrent UTI Urinary tract infection, site not specified HTN (hypertension), benign Essential hypertension, benign Class 2 obesity without serious comorbidity with body mass index (BMI) of 37.0 to 37.9 in adult, unspecified obesity type Type 2 diabetes mellitus with hyperglycemia, with long-term current use of insulin Fatty liver Other chronic nonalcoholic liver disease History of colon polyps Mild CAD Type 2 diabetes mellitus with hyperglycemia, unspecified whether fci insulin use (Multi)- Primary Alexis's thyroiditis Chronic lymphocytic thyroiditis Type 2 diabetes mellitus with diabetic neuropathy, with long-term current use of insulin Alexis's thyroiditis- Primary Chronic lymphocytic thyroiditis Type 2 diabetes mellitus with hyperglycemia, unspecified whether bed bug exterminator insulin use (Multi) Multiple thyroid nodules Nontoxic multinodular goiter Routine general medical examination at health care facility- Primary Routine general medical examination at a health care facility HTN (hypertension), benign Essential hypertension, benign Screening mammogram for breast cancer Medicare annual wellness visit, subsequent Mild CAD Type 2 diabetes mellitus with diabetic neuropathy, with long-term current use of insulin Class 3 severe obesity without serious comorbidity with body mass index (BMI) of 40.0 to 44.9 in adult, unspecified obesity type History of colon polyps Spinal stenosis of lumbar region, unspecified whether neurogenic claudication present Hospital discharge follow-up- Primary Other follow-up examination HTN (hypertension), benign Essential hypertension, benign Hyperlipidemia, unspecified hyperlipidemia type Hypothyroidism, unspecified type Type 2 diabetes mellitus with diabetic neuropathy, with long-term current use of insulin Spinal stenosis of lumbar region, unspecified whether neurogenic claudication present Postoperative anemia Unspecified anemia Acute vaginitis Unspecified vaginitis and vulvovaginitis Leukocytosis, unspecified type Acute cystitis without hematuria- Primary Type 2 diabetes mellitus with diabetic neuropathy, with long-term current use of insulin Alexis's thyroiditis Chronic lymphocytic thyroiditis Multiple thyroid nodules Nontoxic multinodular goiter Type 2 diabetes mellitus with hyperglycemia, unspecified whether fci insulin use (Multi) Alexis's thyroiditis- Primary Chronic lymphocytic thyroiditis Type 2 diabetes mellitus with hyperglycemia, unspecified whether bed bug exterminator insulin use (Multi) documented in this encounter [facility] Work Phone: Evaluation note* Diagnosis Type 2 diabetes mellitus with hyperglycemia, with long-term current use of insulin- Primary HTN (hypertension), benign Essential hypertension, benign Recurrent major depressive disorder, in partial remission (CMS-HCC) Morbid (severe) obesity due to excess calories (Multi) Elevated AST (SGOT)- Primary Recurrent UTI Urinary tract infection, site not specified HTN (hypertension), benign Essential hypertension, benign Class 2 obesity without serious comorbidity with body mass index (BMI) of 37.0 to 37.9 in adult, unspecified obesity type Type 2 diabetes mellitus with hyperglycemia, with long-term current use of insulin Fatty liver Other chronic nonalcoholic liver disease History of colon polyps Mild CAD Type 2 diabetes mellitus with hyperglycemia, unspecified whether bed bug exterminator insulin use (Multi)- Primary Alexis's thyroiditis Chronic lymphocytic thyroiditis Type 2 diabetes mellitus with diabetic neuropathy, with long-term current use of insulin Alexis's thyroiditis- Primary Chronic lymphocytic thyroiditis Type 2 diabetes mellitus with hyperglycemia, unspecified whether fci insulin use (Multi) Multiple thyroid nodules Nontoxic multinodular goiter Routine general medical examination at health care facility- Primary Routine general medical examination at a health care facility HTN (hypertension), benign Essential hypertension, benign Screening mammogram for breast cancer Medicare annual wellness visit, subsequent Mild CAD Type 2 diabetes mellitus with diabetic neuropathy, with long-term current use of insulin Class 3 severe obesity without serious comorbidity with body mass index (BMI) of 40.0 to 44.9 in adult, unspecified obesity type History of colon polyps Spinal stenosis of lumbar region, unspecified whether neurogenic claudication present Hospital discharge follow-up- Primary Other follow-up examination HTN (hypertension), benign Essential hypertension, benign Hyperlipidemia, unspecified hyperlipidemia type Hypothyroidism, unspecified type Type 2 diabetes mellitus with diabetic neuropathy, with long-term current use of insulin Spinal stenosis of lumbar region, unspecified whether neurogenic claudication present Postoperative anemia Unspecified anemia Acute vaginitis Unspecified vaginitis and vulvovaginitis Leukocytosis, unspecified type Acute cystitis without hematuria- Primary Type 2 diabetes mellitus with diabetic neuropathy, with long-term current use of insulin Alexis's thyroiditis Chronic lymphocytic thyroiditis Multiple thyroid nodules Nontoxic multinodular goiter Type 2 diabetes mellitus with hyperglycemia, unspecified whether bed bug exterminator insulin use (Multi) Alexis's thyroiditis- Primary Chronic lymphocytic thyroiditis Type 2 diabetes mellitus with hyperglycemia, unspecified whether fci insulin use (Multi) Hyperlipidemia, unspecified hyperlipidemia type- Primary HTN (hypertension), benign Essential hypertension, benign Type 2 diabetes mellitus with diabetic neuropathy, with long-term current use of insulin Spinal stenosis of lumbar region, unspecified whether neurogenic claudication present SVT (supraventricular tachycardia) ([facility] [place]) Other specified cardiac dysrhythmias Alexis's thyroiditis Chronic lymphocytic thyroiditis Class 2 obesity without serious comorbidity with body mass index (BMI) of 39.0 to 39.9 in adult, unspecified obesity type Gastroesophageal reflux disease, unspecified whether esophagitis present Recurrent UTI Urinary tract infection, site not specified Iron deficiency anemia, unspecified iron deficiency anemia type Anti-TPO antibodies present documented in this encounter [facility] Work Phone: Evaluation note* Diagnosis Lumbar radiculopathy- Primary Thoracic or lumbosacral neuritis or radiculitis, unspecified Screening mammogram for breast cancer Lumbar radiculopathy Thoracic or lumbosacral neuritis or radiculitis, unspecified documented in this encounter [facility] Work Phone: Evaluation note* Diagnosis Type 2 diabetes mellitus with hyperglycemia, with long-term current use of insulin (Multi)- Primary HTN (hypertension), benign Essential hypertension, benign Recurrent major depressive disorder, in partial remission ([facility]) Morbid (severe) obesity due to excess calories (Multi) Elevated AST (SGOT)- Primary Recurrent UTI Urinary tract infection, site not specified HTN (hypertension), benign Essential hypertension, benign Class 2 obesity without serious comorbidity with body mass index (BMI) of 37.0 to 37.9 in adult, unspecified obesity type Type 2 diabetes mellitus with hyperglycemia, with long-term current use of insulin (Multi) Fatty liver Other chronic nonalcoholic liver disease History of colon polyps Mild CAD Type 2 diabetes mellitus with hyperglycemia, unspecified whether fci insulin use (Multi)- Primary Alexis's thyroiditis Chronic lymphocytic thyroiditis Type 2 diabetes mellitus with diabetic neuropathy, with long-term current use of insulin (Multi) Lumbar radiculopathy- Primary Thoracic or lumbosacral neuritis or radiculitis, unspecified Lumbar radiculopathy Thoracic or lumbosacral neuritis or radiculitis, unspecified Alexis's thyroiditis- Primary Chronic lymphocytic thyroiditis Type 2 diabetes mellitus with hyperglycemia, unspecified whether bed bug exterminator insulin use (Multi) Multiple thyroid nodules Nontoxic multinodular goiter Routine general medical examination at health care facility- Primary Routine general medical examination at a health care facility HTN (hypertension), benign Essential hypertension, benign Screening mammogram for breast cancer Medicare annual wellness visit, subsequent Mild CAD Type 2 diabetes mellitus with diabetic neuropathy, with long-term current use of insulin (Multi) Class 3 severe obesity without serious comorbidity with body mass index (BMI) of 40.0 to 44.9 in adult, unspecified obesity type (Multi) History of colon polyps Spinal stenosis of lumbar region, unspecified whether neurogenic claudication present documented in this encounter [facility] Work Phone: Evaluation note* Diagnosis Type 2 diabetes mellitus with hyperglycemia, with long-term current use of insulin (Multi)- Primary HTN (hypertension), benign Essential hypertension, benign Recurrent major depressive disorder, in partial remission (CMS-HCC) Morbid (severe) obesity due to excess calories (Multi) Elevated AST (SGOT)- Primary Recurrent UTI Urinary tract infection, site not specified HTN (hypertension), benign Essential hypertension, benign Class 2 obesity without serious comorbidity with body mass index (BMI) of 37.0 to 37.9 in adult, unspecified obesity type Type 2 diabetes mellitus with hyperglycemia, with long-term current use of insulin (Multi) Fatty liver Other chronic nonalcoholic liver disease History of colon polyps Mild CAD Type 2 diabetes mellitus with hyperglycemia, unspecified whether bed bug exterminator insulin use (Multi)- Primary Alexis's thyroiditis Chronic lymphocytic thyroiditis Type 2 diabetes mellitus with diabetic neuropathy, with long-term current use of insulin (Multi) Alexis's thyroiditis- Primary Chronic lymphocytic thyroiditis Type 2 diabetes mellitus with hyperglycemia, unspecified whether bed bug exterminator insulin use (Multi) Multiple thyroid nodules Nontoxic multinodular goiter Routine general medical examination at health care facility- Primary Routine general medical examination at a health care facility HTN (hypertension), benign Essential hypertension, benign Screening mammogram for breast cancer Medicare annual wellness visit, subsequent Mild CAD Type 2 diabetes mellitus with diabetic neuropathy, with long-term current use of insulin (Multi) Class 3 severe obesity without serious comorbidity with body mass index (BMI) of 40.0 to 44.9 in adult, unspecified obesity type (Multi) History of colon polyps Spinal stenosis of lumbar region, unspecified whether neurogenic claudication present Arteriosclerosis of coronary artery- Primary HTN (hypertension), benign Essential hypertension, benign Hyperlipidemia, unspecified hyperlipidemia type Anemia, unspecified type Tachycardia Unspecified tachycardia Hospital discharge follow-up- Primary Other follow-up examination HTN (hypertension), benign Essential hypertension, benign Hyperlipidemia, unspecified hyperlipidemia type Hypothyroidism, unspecified type Type 2 diabetes mellitus with diabetic neuropathy, with long-term current use of insulin (Multi) Spinal stenosis of lumbar region, unspecified whether neurogenic claudication present Postoperative anemia Unspecified anemia documented in this encounter [facility] Work Phone: Evaluation note* Diagnosis Type 2 diabetes mellitus with hyperglycemia, with long-term current use of insulin (Multi)- Primary HTN (hypertension), benign Essential hypertension, benign Recurrent major depressive disorder, in partial remission ([facility]) Morbid (severe) obesity due to excess calories (Multi) Elevated AST (SGOT)- Primary Recurrent UTI Urinary tract infection, site not specified HTN (hypertension), benign Essential hypertension, benign Class 2 obesity without serious comorbidity with body mass index (BMI) of 37.0 to 37.9 in adult, unspecified obesity type Type 2 diabetes mellitus with hyperglycemia, with long-term current use of insulin (Multi) Fatty liver Other chronic nonalcoholic liver disease History of colon polyps Mild CAD Type 2 diabetes mellitus with hyperglycemia, unspecified whether fci insulin use (Multi)- Primary Alexis's thyroiditis Chronic lymphocytic thyroiditis Type 2 diabetes mellitus with diabetic neuropathy, with long-term current use of insulin (Multi) Alexis's thyroiditis- Primary Chronic lymphocytic thyroiditis Type 2 diabetes mellitus with hyperglycemia, unspecified whether fci insulin use (Multi) Multiple thyroid nodules Nontoxic multinodular goiter Routine general medical examination at health care facility- Primary Routine general medical examination at a health care facility HTN (hypertension), benign Essential hypertension, benign Screening mammogram for breast cancer Medicare annual wellness visit, subsequent Mild CAD Type 2 diabetes mellitus with diabetic neuropathy, with long-term current use of insulin (Multi) Class 3 severe obesity without serious comorbidity with body mass index (BMI) of 40.0 to 44.9 in adult, unspecified obesity type (Multi) History of colon polyps Spinal stenosis of lumbar region, unspecified whether neurogenic claudication present Hospital discharge follow-up- Primary Other follow-up examination HTN (hypertension), benign Essential hypertension, benign Hyperlipidemia, unspecified hyperlipidemia type Hypothyroidism, unspecified type Type 2 diabetes mellitus with diabetic neuropathy, with long-term current use of insulin (Multi) Spinal stenosis of lumbar region, unspecified whether neurogenic claudication present Postoperative anemia Unspecified anemia Acute vaginitis Unspecified vaginitis and vulvovaginitis Leukocytosis, unspecified type documented in this encounter [facility] Work Phone: Evaluation note* Diagnosis Type 2 diabetes mellitus with hyperglycemia, with long-term current use of insulin (Multi)- Primary HTN (hypertension), benign Essential hypertension, benign Recurrent major depressive disorder, in partial remission ([facility]) Morbid (severe) obesity due to excess calories (Multi) Elevated AST (SGOT)- Primary Recurrent UTI Urinary tract infection, site not specified HTN (hypertension), benign Essential hypertension, benign Class 2 obesity without serious comorbidity with body mass index (BMI) of 37.0 to 37.9 in adult, unspecified obesity type Type 2 diabetes mellitus with hyperglycemia, with long-term current use of insulin (Multi) Fatty liver Other chronic nonalcoholic liver disease History of colon polyps Mild CAD Type 2 diabetes mellitus with hyperglycemia, unspecified whether fci insulin use (Multi)- Primary Alexis's thyroiditis Chronic lymphocytic thyroiditis Type 2 diabetes mellitus with diabetic neuropathy, with long-term current use of insulin (Multi) Alexis's thyroiditis- Primary Chronic lymphocytic thyroiditis Type 2 diabetes mellitus with hyperglycemia, unspecified whether fci insulin use (Multi) Multiple thyroid nodules Nontoxic multinodular goiter Routine general medical examination at health care facility- Primary Routine general medical examination at a health care facility HTN (hypertension), benign Essential hypertension, benign Screening mammogram for breast cancer Medicare annual wellness visit, subsequent Mild CAD Type 2 diabetes mellitus with diabetic neuropathy, with long-term current use of insulin (Multi) Class 3 severe obesity without serious comorbidity with body mass index (BMI) of 40.0 to 44.9 in adult, unspecified obesity type (Multi) History of colon polyps Spinal stenosis of lumbar region, unspecified whether neurogenic claudication present Hospital discharge follow-up- Primary Other follow-up examination HTN (hypertension), benign Essential hypertension, benign Hyperlipidemia, unspecified hyperlipidemia type Hypothyroidism, unspecified type Type 2 diabetes mellitus with diabetic neuropathy, with long-term current use of insulin (Multi) Spinal stenosis of lumbar region, unspecified whether neurogenic claudication present Postoperative anemia Unspecified anemia Acute vaginitis Unspecified vaginitis and vulvovaginitis Leukocytosis, unspecified type Lumbar radiculopathy- Primary Thoracic or lumbosacral neuritis or radiculitis, unspecified Burning with urination Dysuria documented in this encounter [facility] Work Phone: Evaluation note* Diagnosis Type 2 diabetes mellitus with hyperglycemia, with long-term current use of insulin (Multi)- Primary HTN (hypertension), benign Essential hypertension, benign Recurrent major depressive disorder, in partial remission ([facility]) Morbid (severe) obesity due to excess calories (Multi) Elevated AST (SGOT)- Primary Recurrent UTI Urinary tract infection, site not specified HTN (hypertension), benign Essential hypertension, benign Class 2 obesity without serious comorbidity with body mass index (BMI) of 37.0 to 37.9 in adult, unspecified obesity type Type 2 diabetes mellitus with hyperglycemia, with long-term current use of insulin (Multi) Fatty liver Other chronic nonalcoholic liver disease History of colon polyps Mild CAD Type 2 diabetes mellitus with hyperglycemia, unspecified whether fci insulin use (Multi)- Primary Alexis's thyroiditis Chronic lymphocytic thyroiditis Type 2 diabetes mellitus with diabetic neuropathy, with long-term current use of insulin (Multi) Alexis's thyroiditis- Primary Chronic lymphocytic thyroiditis Type 2 diabetes mellitus with hyperglycemia, unspecified whether fci insulin use (Multi) Multiple thyroid nodules Nontoxic multinodular goiter Routine general medical examination at health care facility- Primary Routine general medical examination at a health care facility HTN (hypertension), benign Essential hypertension, benign Screening mammogram for breast cancer Medicare annual wellness visit, subsequent Mild CAD Type 2 diabetes mellitus with diabetic neuropathy, with long-term current use of insulin (Multi) Class 3 severe obesity without serious comorbidity with body mass index (BMI) of 40.0 to 44.9 in adult, unspecified obesity type (Multi) History of colon polyps Spinal stenosis of lumbar region, unspecified whether neurogenic claudication present Hospital discharge follow-up- Primary Other follow-up examination HTN (hypertension), benign Essential hypertension, benign Hyperlipidemia, unspecified hyperlipidemia type Hypothyroidism, unspecified type Type 2 diabetes mellitus with diabetic neuropathy, with long-term current use of insulin (Multi) Spinal stenosis of lumbar region, unspecified whether neurogenic claudication present Postoperative anemia Unspecified anemia Acute vaginitis Unspecified vaginitis and vulvovaginitis Leukocytosis, unspecified type Acute cystitis without hematuria- Primary Type 2 diabetes mellitus with diabetic neuropathy, with long-term current use of insulin (Multi) Alexis's thyroiditis Chronic lymphocytic thyroiditis Multiple thyroid nodules Nontoxic multinodular goiter Type 2 diabetes mellitus with hyperglycemia, unspecified whether fci insulin use (Multi) documented in this encounter [facility] Work Phone: Evaluation note* Diagnosis Type 2 diabetes mellitus with hyperglycemia, with long-term current use of insulin (Multi)- Primary HTN (hypertension), benign Essential hypertension, benign Recurrent major depressive disorder, in partial remission (CMS-HCC) Morbid (severe) obesity due to excess calories (Multi) Elevated AST (SGOT)- Primary Recurrent UTI Urinary tract infection, site not specified HTN (hypertension), benign Essential hypertension, benign Class 2 obesity without serious comorbidity with body mass index (BMI) of 37.0 to 37.9 in adult, unspecified obesity type Type 2 diabetes mellitus with hyperglycemia, with long-term current use of insulin (Multi) Fatty liver Other chronic nonalcoholic liver disease History of colon polyps Mild CAD Type 2 diabetes mellitus with hyperglycemia, unspecified whether bed bug exterminator insulin use (Multi)- Primary Alexis's thyroiditis Chronic lymphocytic thyroiditis Type 2 diabetes mellitus with diabetic neuropathy, with long-term current use of insulin (Multi) Alexis's thyroiditis- Primary Chronic lymphocytic thyroiditis Type 2 diabetes mellitus with hyperglycemia, unspecified whether bed bug exterminator insulin use (Multi) Multiple thyroid nodules Nontoxic multinodular goiter Routine general medical examination at health care facility- Primary Routine general medical examination at a health care facility HTN (hypertension), benign Essential hypertension, benign Screening mammogram for breast cancer Medicare annual wellness visit, subsequent Mild CAD Type 2 diabetes mellitus with diabetic neuropathy, with long-term current use of insulin (Multi) Class 3 severe obesity without serious comorbidity with body mass index (BMI) of 40.0 to 44.9 in adult, unspecified obesity type (Multi) History of colon polyps Spinal stenosis of lumbar region, unspecified whether neurogenic claudication present Hospital discharge follow-up- Primary Other follow-up examination HTN (hypertension), benign Essential hypertension, benign Hyperlipidemia, unspecified hyperlipidemia type Hypothyroidism, unspecified type Type 2 diabetes mellitus with diabetic neuropathy, with long-term current use of insulin (Multi) Spinal stenosis of lumbar region, unspecified whether neurogenic claudication present Postoperative anemia Unspecified anemia Acute vaginitis Unspecified vaginitis and vulvovaginitis Leukocytosis, unspecified type Acute cystitis without hematuria- Primary Type 2 diabetes mellitus with diabetic neuropathy, with long-term current use of insulin (Multi) Alexis's thyroiditis Chronic lymphocytic thyroiditis Multiple thyroid nodules Nontoxic multinodular goiter Type 2 diabetes mellitus with hyperglycemia, unspecified whether fci insulin use (Multi) Tachycardia- Primary Unspecified tachycardia HTN (hypertension), benign Essential hypertension, benign Iron deficiency anemia, unspecified iron deficiency anemia type Fatigue, unspecified type History of back surgery Other postprocedural status Pain at surgical incision Epigastric pain Abdominal pain, epigastric Recurrent UTI Urinary tract infection, site not specified Duodenal ulcer Alexis's thyroiditis Chronic lymphocytic thyroiditis Vitamin D deficiency documented in this encounter [facility] Work Phone: Evaluation note* Diagnosis Type 2 diabetes mellitus with hyperglycemia, with long-term current use of insulin (Multi)- Primary HTN (hypertension), benign Essential hypertension, benign Recurrent major depressive disorder, in partial remission (CMS-HCC) Morbid (severe) obesity due to excess calories (Multi) Elevated AST (SGOT)- Primary Recurrent UTI Urinary tract infection, site not specified HTN (hypertension), benign Essential hypertension, benign Class 2 obesity without serious comorbidity with body mass index (BMI) of 37.0 to 37.9 in adult, unspecified obesity type Type 2 diabetes mellitus with hyperglycemia, with long-term current use of insulin (Multi) Fatty liver Other chronic nonalcoholic liver disease History of colon polyps Mild CAD Type 2 diabetes mellitus with hyperglycemia, unspecified whether bed bug exterminator insulin use (Multi)- Primary Alexis's thyroiditis Chronic lymphocytic thyroiditis Type 2 diabetes mellitus with diabetic neuropathy, with long-term current use of insulin (Multi) Alexis's thyroiditis- Primary Chronic lymphocytic thyroiditis Type 2 diabetes mellitus with hyperglycemia, unspecified whether fci insulin use (Multi) Multiple thyroid nodules Nontoxic multinodular goiter Routine general medical examination at health care facility- Primary Routine general medical examination at a health care facility HTN (hypertension), benign Essential hypertension, benign Screening mammogram for breast cancer Medicare annual wellness visit, subsequent Mild CAD Type 2 diabetes mellitus with diabetic neuropathy, with long-term current use of insulin (Multi) Class 3 severe obesity without serious comorbidity with body mass index (BMI) of 40.0 to 44.9 in adult, unspecified obesity type (Multi) History of colon polyps Spinal stenosis of lumbar region, unspecified whether neurogenic claudication present Hospital discharge follow-up- Primary Other follow-up examination HTN (hypertension), benign Essential hypertension, benign Hyperlipidemia, unspecified hyperlipidemia type Hypothyroidism, unspecified type Type 2 diabetes mellitus with diabetic neuropathy, with long-term current use of insulin (Multi) Spinal stenosis of lumbar region, unspecified whether neurogenic claudication present Postoperative anemia Unspecified anemia Acute vaginitis Unspecified vaginitis and vulvovaginitis Leukocytosis, unspecified type Acute cystitis without hematuria- Primary Type 2 diabetes mellitus with diabetic neuropathy, with long-term current use of insulin (Multi) Alexis's thyroiditis Chronic lymphocytic thyroiditis Multiple thyroid nodules Nontoxic multinodular goiter Type 2 diabetes mellitus with hyperglycemia, unspecified whether bed bug exterminator insulin use (Multi) Tachycardia Unspecified tachycardia documented in this encounter [facility] Work Phone: Evaluation note* Diagnosis Type 2 diabetes mellitus with hyperglycemia, with long-term current use of insulin- Primary HTN (hypertension), benign Essential hypertension, benign Recurrent major depressive disorder, in partial remission (CMS-HCC) Morbid (severe) obesity due to excess calories (Multi) Elevated AST (SGOT)- Primary Recurrent UTI Urinary tract infection, site not specified HTN (hypertension), benign Essential hypertension, benign Class 2 obesity without serious comorbidity with body mass index (BMI) of 37.0 to 37.9 in adult, unspecified obesity type Type 2 diabetes mellitus with hyperglycemia, with long-term current use of insulin Fatty liver Other chronic nonalcoholic liver disease History of colon polyps Mild CAD Type 2 diabetes mellitus with hyperglycemia, unspecified whether fci insulin use (Multi)- Primary Alexis's thyroiditis Chronic lymphocytic thyroiditis Type 2 diabetes mellitus with diabetic neuropathy, with long-term current use of insulin Alexis's thyroiditis- Primary Chronic lymphocytic thyroiditis Type 2 diabetes mellitus with hyperglycemia, unspecified whether bed bug exterminator insulin use (Multi) Multiple thyroid nodules Nontoxic multinodular goiter Routine general medical examination at health care facility- Primary Routine general medical examination at a health care facility HTN (hypertension), benign Essential hypertension, benign Screening mammogram for breast cancer Medicare annual wellness visit, subsequent Mild CAD Type 2 diabetes mellitus with diabetic neuropathy, with long-term current use of insulin Class 3 severe obesity without serious comorbidity with body mass index (BMI) of 40.0 to 44.9 in adult, unspecified obesity type History of colon polyps Spinal stenosis of lumbar region, unspecified whether neurogenic claudication present Hospital discharge follow-up- Primary Other follow-up examination HTN (hypertension), benign Essential hypertension, benign Hyperlipidemia, unspecified hyperlipidemia type Hypothyroidism, unspecified type Type 2 diabetes mellitus with diabetic neuropathy, with long-term current use of insulin Spinal stenosis of lumbar region, unspecified whether neurogenic claudication present Postoperative anemia Unspecified anemia Acute vaginitis Unspecified vaginitis and vulvovaginitis Leukocytosis, unspecified type Acute cystitis without hematuria- Primary Type 2 diabetes mellitus with diabetic neuropathy, with long-term current use of insulin Alexis's thyroiditis Chronic lymphocytic thyroiditis Multiple thyroid nodules Nontoxic multinodular goiter Type 2 diabetes mellitus with hyperglycemia, unspecified whether bed bug exterminator insulin use (Multi) Neurogenic claudication due to lumbar spinal stenosis- Primary Spinal stenosis of lumbar region documented in this encounter [facility] Work Phone: Evaluation note* Diagnosis Type 2 diabetes mellitus with hyperglycemia, with long-term current use of insulin- Primary HTN (hypertension), benign Essential hypertension, benign Recurrent major depressive disorder, in partial remission (CMS-HCC) Morbid (severe) obesity due to excess calories (Multi) Elevated AST (SGOT)- Primary Recurrent UTI Urinary tract infection, site not specified HTN (hypertension), benign Essential hypertension, benign Class 2 obesity without serious comorbidity with body mass index (BMI) of 37.0 to 37.9 in adult, unspecified obesity type Type 2 diabetes mellitus with hyperglycemia, with long-term current use of insulin Fatty liver Other chronic nonalcoholic liver disease History of colon polyps Mild CAD Type 2 diabetes mellitus with hyperglycemia, unspecified whether fci insulin use (Multi)- Primary Alexis's thyroiditis Chronic lymphocytic thyroiditis Type 2 diabetes mellitus with diabetic neuropathy, with long-term current use of insulin Alexis's thyroiditis- Primary Chronic lymphocytic thyroiditis Type 2 diabetes mellitus with hyperglycemia, unspecified whether bed bug exterminator insulin use (Multi) Multiple thyroid nodules Nontoxic multinodular goiter Routine general medical examination at health care facility- Primary Routine general medical examination at a health care facility HTN (hypertension), benign Essential hypertension, benign Screening mammogram for breast cancer Medicare annual wellness visit, subsequent Mild CAD Type 2 diabetes mellitus with diabetic neuropathy, with long-term current use of insulin Class 3 severe obesity without serious comorbidity with body mass index (BMI) of 40.0 to 44.9 in adult, unspecified obesity type History of colon polyps Spinal stenosis of lumbar region, unspecified whether neurogenic claudication present Hospital discharge follow-up- Primary Other follow-up examination HTN (hypertension), benign Essential hypertension, benign Hyperlipidemia, unspecified hyperlipidemia type Hypothyroidism, unspecified type Type 2 diabetes mellitus with diabetic neuropathy, with long-term current use of insulin Spinal stenosis of lumbar region, unspecified whether neurogenic claudication present Postoperative anemia Unspecified anemia Acute vaginitis Unspecified vaginitis and vulvovaginitis Leukocytosis, unspecified type Acute cystitis without hematuria- Primary Type 2 diabetes mellitus with diabetic neuropathy, with long-term current use of insulin Alexis's thyroiditis Chronic lymphocytic thyroiditis Multiple thyroid nodules Nontoxic multinodular goiter Type 2 diabetes mellitus with hyperglycemia, unspecified whether bed bug exterminator insulin use (Multi) Alexis's thyroiditis- Primary Chronic lymphocytic thyroiditis Type 2 diabetes mellitus with hyperglycemia, unspecified whether bed bug exterminator insulin use (Multi) Hyperlipidemia, unspecified hyperlipidemia type- Primary HTN (hypertension), benign Essential hypertension, benign Type 2 diabetes mellitus with diabetic neuropathy, with long-term current use of insulin Spinal stenosis of lumbar region, unspecified whether neurogenic claudication present SVT (supraventricular tachycardia) ([facility]) Other specified cardiac dysrhythmias Alexis's thyroiditis Chronic lymphocytic thyroiditis Class 2 obesity without serious comorbidity with body mass index (BMI) of 39.0 to 39.9 in adult, unspecified obesity type Gastroesophageal reflux disease, unspecified whether esophagitis present Recurrent UTI Urinary tract infection, site not specified Iron deficiency anemia, unspecified iron deficiency anemia type Anti-TPO antibodies present Umbilical hernia without obstruction and without gangrene- Primary Epigastric pain Abdominal pain, epigastric Adenomatous polyp of colon, unspecified part of colon documented in this encounter [facility] Work Phone: Evaluation note* Diagnosis Type 2 diabetes mellitus with hyperglycemia, with long-term current use of insulin- Primary HTN (hypertension), benign Essential hypertension, benign Recurrent major depressive disorder, in partial remission (CMS-HCC) Morbid (severe) obesity due to excess calories (Multi) Elevated AST (SGOT)- Primary Recurrent UTI Urinary tract infection, site not specified HTN (hypertension), benign Essential hypertension, benign Class 2 obesity without serious comorbidity with body mass index (BMI) of 37.0 to 37.9 in adult, unspecified obesity type Type 2 diabetes mellitus with hyperglycemia, with long-term current use of insulin Fatty liver Other chronic nonalcoholic liver disease History of colon polyps Mild CAD Type 2 diabetes mellitus with hyperglycemia, unspecified whether fci insulin use (Multi)- Primary Alexis's thyroiditis Chronic lymphocytic thyroiditis Type 2 diabetes mellitus with diabetic neuropathy, with long-term current use of insulin Alexis's thyroiditis- Primary Chronic lymphocytic thyroiditis Type 2 diabetes mellitus with hyperglycemia, unspecified whether fci insulin use (Multi) Multiple thyroid nodules Nontoxic multinodular goiter Routine general medical examination at health care facility- Primary Routine general medical examination at a health care facility HTN (hypertension), benign Essential hypertension, benign Screening mammogram for breast cancer Medicare annual wellness visit, subsequent Mild CAD Type 2 diabetes mellitus with diabetic neuropathy, with long-term current use of insulin Class 3 severe obesity without serious comorbidity with body mass index (BMI) of 40.0 to 44.9 in adult, unspecified obesity type History of colon polyps Spinal stenosis of lumbar region, unspecified whether neurogenic claudication present Hospital discharge follow-up- Primary Other follow-up examination HTN (hypertension), benign Essential hypertension, benign Hyperlipidemia, unspecified hyperlipidemia type Hypothyroidism, unspecified type Type 2 diabetes mellitus with diabetic neuropathy, with long-term current use of insulin Spinal stenosis of lumbar region, unspecified whether neurogenic claudication present Postoperative anemia Unspecified anemia Acute vaginitis Unspecified vaginitis and vulvovaginitis Leukocytosis, unspecified type Acute cystitis without hematuria- Primary Type 2 diabetes mellitus with diabetic neuropathy, with long-term current use of insulin Alexis's thyroiditis Chronic lymphocytic thyroiditis Multiple thyroid nodules Nontoxic multinodular goiter Type 2 diabetes mellitus with hyperglycemia, unspecified whether bed bug exterminator insulin use (Multi) Alexis's thyroiditis- Primary Chronic lymphocytic thyroiditis Type 2 diabetes mellitus with hyperglycemia, unspecified whether fci insulin use (Multi) Hyperlipidemia, unspecified hyperlipidemia type- Primary HTN (hypertension), benign Essential hypertension, benign Type 2 diabetes mellitus with diabetic neuropathy, with long-term current use of insulin Spinal stenosis of lumbar region, unspecified whether neurogenic claudication present SVT (supraventricular tachycardia) ([facility] [place]) Other specified cardiac dysrhythmias Alexis's thyroiditis Chronic lymphocytic thyroiditis Class 2 obesity without serious comorbidity with body mass index (BMI) of 39.0 to 39.9 in adult, unspecified obesity type Gastroesophageal reflux disease, unspecified whether esophagitis present Recurrent UTI Urinary tract infection, site not specified Iron deficiency anemia, unspecified iron deficiency anemia type Anti-TPO antibodies present Adenomatous polyp of colon, unspecified part of colon Epigastric pain Abdominal pain, epigastric documented in this encounter [facility] Work Phone: Evaluation note* Diagnosis Type 2 diabetes mellitus with hyperglycemia, with long-term current use of insulin- Primary HTN (hypertension), benign Essential hypertension, benign Recurrent major depressive disorder, in partial remission ([facility]) Morbid (severe) obesity due to excess calories (Multi) Elevated AST (SGOT)- Primary Recurrent UTI Urinary tract infection, site not specified HTN (hypertension), benign Essential hypertension, benign Class 2 obesity without serious comorbidity with body mass index (BMI) of 37.0 to 37.9 in adult, unspecified obesity type Type 2 diabetes mellitus with hyperglycemia, with long-term current use of insulin Fatty liver Other chronic nonalcoholic liver disease History of colon polyps Mild CAD Type 2 diabetes mellitus with hyperglycemia, unspecified whether fci insulin use (Multi)- Primary Alexis's thyroiditis Chronic lymphocytic thyroiditis Type 2 diabetes mellitus with diabetic neuropathy, with long-term current use of insulin Alexis's thyroiditis- Primary Chronic lymphocytic thyroiditis Type 2 diabetes mellitus with hyperglycemia, unspecified whether bed bug exterminator insulin use (Multi) Multiple thyroid nodules Nontoxic multinodular goiter Routine general medical examination at health care facility- Primary Routine general medical examination at a health care facility HTN (hypertension), benign Essential hypertension, benign Screening mammogram for breast cancer Medicare annual wellness visit, subsequent Mild CAD Type 2 diabetes mellitus with diabetic neuropathy, with long-term current use of insulin Class 3 severe obesity without serious comorbidity with body mass index (BMI) of 40.0 to 44.9 in adult, unspecified obesity type History of colon polyps Spinal stenosis of lumbar region, unspecified whether neurogenic claudication present Hospital discharge follow-up- Primary Other follow-up examination HTN (hypertension), benign Essential hypertension, benign Hyperlipidemia, unspecified hyperlipidemia type Hypothyroidism, unspecified type Type 2 diabetes mellitus with diabetic neuropathy, with long-term current use of insulin Spinal stenosis of lumbar region, unspecified whether neurogenic claudication present Postoperative anemia Unspecified anemia Acute vaginitis Unspecified vaginitis and vulvovaginitis Leukocytosis, unspecified type Acute cystitis without hematuria- Primary Type 2 diabetes mellitus with diabetic neuropathy, with long-term current use of insulin Alexis's thyroiditis Chronic lymphocytic thyroiditis Multiple thyroid nodules Nontoxic multinodular goiter Type 2 diabetes mellitus with hyperglycemia, unspecified whether fci insulin use (Multi) Alexis's thyroiditis- Primary Chronic lymphocytic thyroiditis Type 2 diabetes mellitus with hyperglycemia, unspecified whether fci insulin use (Multi) Hyperlipidemia, unspecified hyperlipidemia type- Primary HTN (hypertension), benign Essential hypertension, benign Type 2 diabetes mellitus with diabetic neuropathy, with long-term current use of insulin Spinal stenosis of lumbar region, unspecified whether neurogenic claudication present SVT (supraventricular tachycardia) ([facility] [place]) Other specified cardiac dysrhythmias Alexis's thyroiditis Chronic lymphocytic thyroiditis Class 2 obesity without serious comorbidity with body mass index (BMI) of 39.0 to 39.9 in adult, unspecified obesity type Gastroesophageal reflux disease, unspecified whether esophagitis present Recurrent UTI Urinary tract infection, site not specified Iron deficiency anemia, unspecified iron deficiency anemia type Anti-TPO antibodies present Periumbilical pain- Primary Abdominal pain, periumbilic Epigastric pain Abdominal pain, epigastric documented in this encounter [facility] Work Phone: Evaluation note* Diagnosis Type 2 diabetes mellitus with hyperglycemia, with long-term current use of insulin- Primary HTN (hypertension), benign Essential hypertension, benign Recurrent major depressive disorder, in partial remission ([facility]) Morbid (severe) obesity due to excess calories (Multi) Elevated AST (SGOT)- Primary Recurrent UTI Urinary tract infection, site not specified HTN (hypertension), benign Essential hypertension, benign Class 2 obesity without serious comorbidity with body mass index (BMI) of 37.0 to 37.9 in adult, unspecified obesity type Type 2 diabetes mellitus with hyperglycemia, with long-term current use of insulin Fatty liver Other chronic nonalcoholic liver disease History of colon polyps Mild CAD Type 2 diabetes mellitus with hyperglycemia, unspecified whether fci insulin use (Multi)- Primary Alexis's thyroiditis Chronic lymphocytic thyroiditis Type 2 diabetes mellitus with diabetic neuropathy, with long-term current use of insulin Alexis's thyroiditis- Primary Chronic lymphocytic thyroiditis Type 2 diabetes mellitus with hyperglycemia, unspecified whether fci insulin use (Multi) Multiple thyroid nodules Nontoxic multinodular goiter Routine general medical examination at health care facility- Primary Routine general medical examination at a health care facility HTN (hypertension), benign Essential hypertension, benign Screening mammogram for breast cancer Medicare annual wellness visit, subsequent Mild CAD Type 2 diabetes mellitus with diabetic neuropathy, with long-term current use of insulin Class 3 severe obesity without serious comorbidity with body mass index (BMI) of 40.0 to 44.9 in adult, unspecified obesity type History of colon polyps Spinal stenosis of lumbar region, unspecified whether neurogenic claudication present Hospital discharge follow-up- Primary Other follow-up examination HTN (hypertension), benign Essential hypertension, benign Hyperlipidemia, unspecified hyperlipidemia type Hypothyroidism, unspecified type Type 2 diabetes mellitus with diabetic neuropathy, with long-term current use of insulin Spinal stenosis of lumbar region, unspecified whether neurogenic claudication present Postoperative anemia Unspecified anemia Acute vaginitis Unspecified vaginitis and vulvovaginitis Leukocytosis, unspecified type Acute cystitis without hematuria- Primary Type 2 diabetes mellitus with diabetic neuropathy, with long-term current use of insulin Alexis's thyroiditis Chronic lymphocytic thyroiditis Multiple thyroid nodules Nontoxic multinodular goiter Type 2 diabetes mellitus with hyperglycemia, unspecified whether fci insulin use (Multi) Alexis's thyroiditis- Primary Chronic lymphocytic thyroiditis Type 2 diabetes mellitus with hyperglycemia, unspecified whether fci insulin use (Multi) Hyperlipidemia, unspecified hyperlipidemia type- Primary HTN (hypertension), benign Essential hypertension, benign Type 2 diabetes mellitus with diabetic neuropathy, with long-term current use of insulin Spinal stenosis of lumbar region, unspecified whether neurogenic claudication present SVT (supraventricular tachycardia) ([facility]) Other specified cardiac dysrhythmias Alexis's thyroiditis Chronic lymphocytic thyroiditis Class 2 obesity without serious comorbidity with body mass index (BMI) of 39.0 to 39.9 in adult, unspecified obesity type Gastroesophageal reflux disease, unspecified whether esophagitis present Recurrent UTI Urinary tract infection, site not specified Iron deficiency anemia, unspecified iron deficiency anemia type Anti-TPO antibodies present Type 2 diabetes mellitus with hyperglycemia, unspecified whether bed bug exterminator insulin use (Multi) Alexis's thyroiditis Chronic lymphocytic thyroiditis documented in this encounter [facility] Work Phone: Evaluation note* Diagnosis Type 2 diabetes mellitus with hyperglycemia, with long-term current use of insulin- Primary HTN (hypertension), benign Essential hypertension, benign Recurrent major depressive disorder, in partial remission ([facility]) Morbid (severe) obesity due to excess calories (Multi) Elevated AST (SGOT)- Primary Recurrent UTI Urinary tract infection, site not specified HTN (hypertension), benign Essential hypertension, benign Class 2 obesity without serious comorbidity with body mass index (BMI) of 37.0 to 37.9 in adult, unspecified obesity type Type 2 diabetes mellitus with hyperglycemia, with long-term current use of insulin Fatty liver Other chronic nonalcoholic liver disease History of colon polyps Mild CAD Type 2 diabetes mellitus with hyperglycemia, unspecified whether bed bug exterminator insulin use (Multi)- Primary Alexis's thyroiditis Chronic lymphocytic thyroiditis Type 2 diabetes mellitus with diabetic neuropathy, with long-term current use of insulin Alexis's thyroiditis- Primary Chronic lymphocytic thyroiditis Type 2 diabetes mellitus with hyperglycemia, unspecified whether bed bug exterminator insulin use (Multi) Multiple thyroid nodules Nontoxic multinodular goiter Routine general medical examination at health care facility- Primary Routine general medical examination at a health care facility HTN (hypertension), benign Essential hypertension, benign Screening mammogram for breast cancer Medicare annual wellness visit, subsequent Mild CAD Type 2 diabetes mellitus with diabetic neuropathy, with long-term current use of insulin Class 3 severe obesity without serious comorbidity with body mass index (BMI) of 40.0 to 44.9 in adult, unspecified obesity type History of colon polyps Spinal stenosis of lumbar region, unspecified whether neurogenic claudication present Hospital discharge follow-up- Primary Other follow-up examination HTN (hypertension), benign Essential hypertension, benign Hyperlipidemia, unspecified hyperlipidemia type Hypothyroidism, unspecified type Type 2 diabetes mellitus with diabetic neuropathy, with long-term current use of insulin Spinal stenosis of lumbar region, unspecified whether neurogenic claudication present Postoperative anemia Unspecified anemia Acute vaginitis Unspecified vaginitis and vulvovaginitis Leukocytosis, unspecified type Acute cystitis without hematuria- Primary Type 2 diabetes mellitus with diabetic neuropathy, with long-term current use of insulin Alexis's thyroiditis Chronic lymphocytic thyroiditis Multiple thyroid nodules Nontoxic multinodular goiter Type 2 diabetes mellitus with hyperglycemia, unspecified whether fci insulin use (Multi) Alexis's thyroiditis- Primary Chronic lymphocytic thyroiditis Type 2 diabetes mellitus with hyperglycemia, unspecified whether fci insulin use (Multi) Hyperlipidemia, unspecified hyperlipidemia type- Primary HTN (hypertension), benign Essential hypertension, benign Type 2 diabetes mellitus with diabetic neuropathy, with long-term current use of insulin Spinal stenosis of lumbar region, unspecified whether neurogenic claudication present SVT (supraventricular tachycardia) ([facility] [place]) Other specified cardiac dysrhythmias Alexis's thyroiditis Chronic lymphocytic thyroiditis Class 2 obesity without serious comorbidity with body mass index (BMI) of 39.0 to 39.9 in adult, unspecified obesity type Gastroesophageal reflux disease, unspecified whether esophagitis present Recurrent UTI Urinary tract infection, site not specified Iron deficiency anemia, unspecified iron deficiency anemia type Anti-TPO antibodies present Type 2 diabetes mellitus with hyperglycemia, unspecified whether fci insulin use (Multi) Alexis's thyroiditis Chronic lymphocytic thyroiditis Epigastric pain Abdominal pain, epigastric Periumbilical pain Abdominal pain, periumbilic documented in this encounter [facility] Work Phone: Evaluation note* Diagnosis Type 2 diabetes mellitus with hyperglycemia, with long-term current use of insulin- Primary HTN (hypertension), benign Essential hypertension, benign Recurrent major depressive disorder, in partial remission (CMS-HCC) Morbid (severe) obesity due to excess calories (Multi) Elevated AST (SGOT)- Primary Recurrent UTI Urinary tract infection, site not specified HTN (hypertension), benign Essential hypertension, benign Class 2 obesity without serious comorbidity with body mass index (BMI) of 37.0 to 37.9 in adult, unspecified obesity type Type 2 diabetes mellitus with hyperglycemia, with long-term current use of insulin Fatty liver Other chronic nonalcoholic liver disease History of colon polyps Mild CAD Type 2 diabetes mellitus with hyperglycemia, unspecified whether fci insulin use (Multi)- Primary Alexis's thyroiditis Chronic lymphocytic thyroiditis Type 2 diabetes mellitus with diabetic neuropathy, with long-term current use of insulin Alexis's thyroiditis- Primary Chronic lymphocytic thyroiditis Type 2 diabetes mellitus with hyperglycemia, unspecified whether fci insulin use (Multi) Multiple thyroid nodules Nontoxic multinodular goiter Routine general medical examination at health care facility- Primary Routine general medical examination at a health care facility HTN (hypertension), benign Essential hypertension, benign Screening mammogram for breast cancer Medicare annual wellness visit, subsequent Mild CAD Type 2 diabetes mellitus with diabetic neuropathy, with long-term current use of insulin Class 3 severe obesity without serious comorbidity with body mass index (BMI) of 40.0 to 44.9 in adult, unspecified obesity type History of colon polyps Spinal stenosis of lumbar region, unspecified whether neurogenic claudication present Hospital discharge follow-up- Primary Other follow-up examination HTN (hypertension), benign Essential hypertension, benign Hyperlipidemia, unspecified hyperlipidemia type Hypothyroidism, unspecified type Type 2 diabetes mellitus with diabetic neuropathy, with long-term current use of insulin Spinal stenosis of lumbar region, unspecified whether neurogenic claudication present Postoperative anemia Unspecified anemia Acute vaginitis Unspecified vaginitis and vulvovaginitis Leukocytosis, unspecified type Acute cystitis without hematuria- Primary Type 2 diabetes mellitus with diabetic neuropathy, with long-term current use of insulin Alexis's thyroiditis Chronic lymphocytic thyroiditis Multiple thyroid nodules Nontoxic multinodular goiter Type 2 diabetes mellitus with hyperglycemia, unspecified whether bed bug exterminator insulin use (Multi) Alexis's thyroiditis- Primary Chronic lymphocytic thyroiditis Type 2 diabetes mellitus with hyperglycemia, unspecified whether fci insulin use (Multi) Hyperlipidemia, unspecified hyperlipidemia type- Primary HTN (hypertension), benign Essential hypertension, benign Type 2 diabetes mellitus with diabetic neuropathy, with long-term current use of insulin Spinal stenosis of lumbar region, unspecified whether neurogenic claudication present SVT (supraventricular tachycardia) ([facility]) Other specified cardiac dysrhythmias Alexis's thyroiditis Chronic lymphocytic thyroiditis Class 2 obesity without serious comorbidity with body mass index (BMI) of 39.0 to 39.9 in adult, unspecified obesity type Gastroesophageal reflux disease, unspecified whether esophagitis present Recurrent UTI Urinary tract infection, site not specified Iron deficiency anemia, unspecified iron deficiency anemia type Anti-TPO antibodies present Type 2 diabetes mellitus with hyperglycemia, unspecified whether bed bug exterminator insulin use (Multi) Alexis's thyroiditis Chronic lymphocytic thyroiditis Type 2 diabetes mellitus with hyperglycemia, unspecified whether fci insulin use (Multi) documented in this encounter [facility] Work Phone: Evaluation note* Diagnosis Type 2 diabetes mellitus with hyperglycemia, with long-term current use of insulin- Primary HTN (hypertension), benign Essential hypertension, benign Recurrent major depressive disorder, in partial remission (CMS-HCC) Morbid (severe) obesity due to excess calories (Multi) Elevated AST (SGOT)- Primary Recurrent UTI Urinary tract infection, site not specified HTN (hypertension), benign Essential hypertension, benign Class 2 obesity without serious comorbidity with body mass index (BMI) of 37.0 to 37.9 in adult, unspecified obesity type Type 2 diabetes mellitus with hyperglycemia, with long-term current use of insulin Fatty liver Other chronic nonalcoholic liver disease History of colon polyps Mild CAD Type 2 diabetes mellitus with hyperglycemia, unspecified whether fci insulin use (Multi)- Primary Alexis's thyroiditis Chronic lymphocytic thyroiditis Type 2 diabetes mellitus with diabetic neuropathy, with long-term current use of insulin Alexis's thyroiditis- Primary Chronic lymphocytic thyroiditis Type 2 diabetes mellitus with hyperglycemia, unspecified whether fci insulin use (Multi) Multiple thyroid nodules Nontoxic multinodular goiter Routine general medical examination at health care facility- Primary Routine general medical examination at a health care facility HTN (hypertension), benign Essential hypertension, benign Screening mammogram for breast cancer Medicare annual wellness visit, subsequent Mild CAD Type 2 diabetes mellitus with diabetic neuropathy, with long-term current use of insulin Class 3 severe obesity without serious comorbidity with body mass index (BMI) of 40.0 to 44.9 in adult, unspecified obesity type History of colon polyps Spinal stenosis of lumbar region, unspecified whether neurogenic claudication present Hospital discharge follow-up- Primary Other follow-up examination HTN (hypertension), benign Essential hypertension, benign Hyperlipidemia, unspecified hyperlipidemia type Hypothyroidism, unspecified type Type 2 diabetes mellitus with diabetic neuropathy, with long-term current use of insulin Spinal stenosis of lumbar region, unspecified whether neurogenic claudication present Postoperative anemia Unspecified anemia Acute vaginitis Unspecified vaginitis and vulvovaginitis Leukocytosis, unspecified type Acute cystitis without hematuria- Primary Type 2 diabetes mellitus with diabetic neuropathy, with long-term current use of insulin Alexis's thyroiditis Chronic lymphocytic thyroiditis Multiple thyroid nodules Nontoxic multinodular goiter Type 2 diabetes mellitus with hyperglycemia, unspecified whether bed bug exterminator insulin use (Multi) Alexis's thyroiditis- Primary Chronic lymphocytic thyroiditis Type 2 diabetes mellitus with hyperglycemia, unspecified whether bed bug exterminator insulin use (Multi) Hyperlipidemia, unspecified hyperlipidemia type- Primary HTN (hypertension), benign Essential hypertension, benign Type 2 diabetes mellitus with diabetic neuropathy, with long-term current use of insulin Spinal stenosis of lumbar region, unspecified whether neurogenic claudication present SVT (supraventricular tachycardia) ([facility]) Other specified cardiac dysrhythmias Alexis's thyroiditis Chronic lymphocytic thyroiditis Class 2 obesity without serious comorbidity with body mass index (BMI) of 39.0 to 39.9 in adult, unspecified obesity type Gastroesophageal reflux disease, unspecified whether esophagitis present Recurrent UTI Urinary tract infection, site not specified Iron deficiency anemia, unspecified iron deficiency anemia type Anti-TPO antibodies present Type 2 diabetes mellitus with hyperglycemia, unspecified whether fci insulin use (Multi) Alexis's thyroiditis Chronic lymphocytic thyroiditis Type 2 diabetes mellitus with hyperglycemia, unspecified whether fci insulin use (Multi) documented in this encounter [facility] Work Phone: Evaluation note* Diagnosis Type 2 diabetes mellitus with hyperglycemia, with long-term current use of insulin- Primary HTN (hypertension), benign Essential hypertension, benign Recurrent major depressive disorder, in partial remission ([facility]) Morbid (severe) obesity due to excess calories (Multi) Elevated AST (SGOT)- Primary Recurrent UTI Urinary tract infection, site not specified HTN (hypertension), benign Essential hypertension, benign Class 2 obesity without serious comorbidity with body mass index (BMI) of 37.0 to 37.9 in adult, unspecified obesity type Type 2 diabetes mellitus with hyperglycemia, with long-term current use of insulin Fatty liver Other chronic nonalcoholic liver disease History of colon polyps Mild CAD Type 2 diabetes mellitus with hyperglycemia, unspecified whether fci insulin use (Multi)- Primary Alexis's thyroiditis Chronic lymphocytic thyroiditis Type 2 diabetes mellitus with diabetic neuropathy, with long-term current use of insulin Alexis's thyroiditis- Primary Chronic lymphocytic thyroiditis Type 2 diabetes mellitus with hyperglycemia, unspecified whether fci insulin use (Multi) Multiple thyroid nodules Nontoxic multinodular goiter Routine general medical examination at health care facility- Primary Routine general medical examination at a health care facility HTN (hypertension), benign Essential hypertension, benign Screening mammogram for breast cancer Medicare annual wellness visit, subsequent Mild CAD Type 2 diabetes mellitus with diabetic neuropathy, with long-term current use of insulin Class 3 severe obesity without serious comorbidity with body mass index (BMI) of 40.0 to 44.9 in adult, unspecified obesity type History of colon polyps Spinal stenosis of lumbar region, unspecified whether neurogenic claudication present Hospital discharge follow-up- Primary Other follow-up examination HTN (hypertension), benign Essential hypertension, benign Hyperlipidemia, unspecified hyperlipidemia type Hypothyroidism, unspecified type Type 2 diabetes mellitus with diabetic neuropathy, with long-term current use of insulin Spinal stenosis of lumbar region, unspecified whether neurogenic claudication present Postoperative anemia Unspecified anemia Acute vaginitis Unspecified vaginitis and vulvovaginitis Leukocytosis, unspecified type Acute cystitis without hematuria- Primary Type 2 diabetes mellitus with diabetic neuropathy, with long-term current use of insulin Alexis's thyroiditis Chronic lymphocytic thyroiditis Multiple thyroid nodules Nontoxic multinodular goiter Type 2 diabetes mellitus with hyperglycemia, unspecified whether bed bug exterminator insulin use (Multi) Alexis's thyroiditis- Primary Chronic lymphocytic thyroiditis Type 2 diabetes mellitus with hyperglycemia, unspecified whether bed bug exterminator insulin use (Multi) Hyperlipidemia, unspecified hyperlipidemia type- Primary HTN (hypertension), benign Essential hypertension, benign Type 2 diabetes mellitus with diabetic neuropathy, with long-term current use of insulin Spinal stenosis of lumbar region, unspecified whether neurogenic claudication present SVT (supraventricular tachycardia) ([facility]) Other specified cardiac dysrhythmias Alexis's thyroiditis Chronic lymphocytic thyroiditis Class 2 obesity without serious comorbidity with body mass index (BMI) of 39.0 to 39.9 in adult, unspecified obesity type Gastroesophageal reflux disease, unspecified whether esophagitis present Recurrent UTI Urinary tract infection, site not specified Iron deficiency anemia, unspecified iron deficiency anemia type Anti-TPO antibodies present Type 2 diabetes mellitus with hyperglycemia, unspecified whether fci insulin use (Multi) Alexis's thyroiditis Chronic lymphocytic thyroiditis Hospital discharge follow-up- Primary Other follow-up examination Acute cystitis without hematuria ST elevation myocardial infarction involving left anterior descending (LAD) coronary artery (Multi) Hyperlipidemia, unspecified hyperlipidemia type HTN (hypertension), benign Essential hypertension, benign Coronary artery disease involving nenana coronary artery of nenana heart without angina pectoris Type 2 diabetes mellitus with diabetic neuropathy, with long-term current use of insulin documented in this encounter [facility] Work Phone: Evaluation note* Diagnosis Type 2 diabetes mellitus with hyperglycemia, with long-term current use of insulin- Primary HTN (hypertension), benign Essential hypertension, benign Recurrent major depressive disorder, in partial remission (CMS-HCC) Morbid (severe) obesity due to excess calories (Multi) Elevated AST (SGOT)- Primary Recurrent UTI Urinary tract infection, site not specified HTN (hypertension), benign Essential hypertension, benign Class 2 obesity without serious comorbidity with body mass index (BMI) of 37.0 to 37.9 in adult, unspecified obesity type Type 2 diabetes mellitus with hyperglycemia, with long-term current use of insulin Fatty liver Other chronic nonalcoholic liver disease History of colon polyps Mild CAD Type 2 diabetes mellitus with hyperglycemia, unspecified whether fci insulin use (Multi)- Primary Alexis's thyroiditis Chronic lymphocytic thyroiditis Type 2 diabetes mellitus with diabetic neuropathy, with long-term current use of insulin Alexis's thyroiditis- Primary Chronic lymphocytic thyroiditis Type 2 diabetes mellitus with hyperglycemia, unspecified whether bed bug exterminator insulin use (Multi) Multiple thyroid nodules Nontoxic multinodular goiter Routine general medical examination at health care facility- Primary Routine general medical examination at a health care facility HTN (hypertension), benign Essential hypertension, benign Screening mammogram for breast cancer Medicare annual wellness visit, subsequent Mild CAD Type 2 diabetes mellitus with diabetic neuropathy, with long-term current use of insulin Class 3 severe obesity without serious comorbidity with body mass index (BMI) of 40.0 to 44.9 in adult, unspecified obesity type History of colon polyps Spinal stenosis of lumbar region, unspecified whether neurogenic claudication present Hospital discharge follow-up- Primary Other follow-up examination HTN (hypertension), benign Essential hypertension, benign Hyperlipidemia, unspecified hyperlipidemia type Hypothyroidism, unspecified type Type 2 diabetes mellitus with diabetic neuropathy, with long-term current use of insulin Spinal stenosis of lumbar region, unspecified whether neurogenic claudication present Postoperative anemia Unspecified anemia Acute vaginitis Unspecified vaginitis and vulvovaginitis Leukocytosis, unspecified type Acute cystitis without hematuria- Primary Type 2 diabetes mellitus with diabetic neuropathy, with long-term current use of insulin Alexis's thyroiditis Chronic lymphocytic thyroiditis Multiple thyroid nodules Nontoxic multinodular goiter Type 2 diabetes mellitus with hyperglycemia, unspecified whether bed bug exterminator insulin use (Multi) Alexis's thyroiditis- Primary Chronic lymphocytic thyroiditis Type 2 diabetes mellitus with hyperglycemia, unspecified whether bed bug exterminator insulin use (Multi) Hyperlipidemia, unspecified hyperlipidemia type- Primary HTN (hypertension), benign Essential hypertension, benign Type 2 diabetes mellitus with diabetic neuropathy, with long-term current use of insulin Spinal stenosis of lumbar region, unspecified whether neurogenic claudication present SVT (supraventricular tachycardia) ([facility]) Other specified cardiac dysrhythmias Alexis's thyroiditis Chronic lymphocytic thyroiditis Class 2 obesity without serious comorbidity with body mass index (BMI) of 39.0 to 39.9 in adult, unspecified obesity type Gastroesophageal reflux disease, unspecified whether esophagitis present Recurrent UTI Urinary tract infection, site not specified Iron deficiency anemia, unspecified iron deficiency anemia type Anti-TPO antibodies present Type 2 diabetes mellitus with hyperglycemia, unspecified whether bed bug exterminator insulin use (Multi) Alexis's thyroiditis Chronic lymphocytic thyroiditis Hospital discharge follow-up- Primary Other follow-up examination Acute cystitis without hematuria ST elevation myocardial infarction involving left anterior descending (LAD) coronary artery (Multi) Hyperlipidemia, unspecified hyperlipidemia type HTN (hypertension), benign Essential hypertension, benign Coronary artery disease involving nenana coronary artery of nenana heart without angina pectoris Type 2 diabetes mellitus with diabetic neuropathy, with long-term current use of insulin Coronary artery disease involving nenana coronary artery of nenana heart without angina pectoris ST elevation myocardial infarction involving left anterior descending (LAD) coronary artery (Multi) SVT (supraventricular tachycardia) ([facility]) Other specified cardiac dysrhythmias documented in this encounter [facility] Work Phone: Evaluation note* Diagnosis Onset Date Resolution Status Admit Date Chest pain acute November 26 12:46pm ST elevation (STEMI) myocard ial infarction acute November 26, 2024 12:46pm [facility] Work Phone: Evaluation note* Diagnosis Type 2 diabetes mellitus with hyperglycemia, with long-term current use of insulin- Primary HTN (hypertension), benign Essential hypertension, benign Recurrent major depressive disorder, in partial remission ([facility]) Morbid (severe) obesity due to excess calories (Multi) Elevated AST (SGOT)- Primary Recurrent UTI Urinary tract infection, site not specified HTN (hypertension), benign Essential hypertension, benign Class 2 obesity without serious comorbidity with body mass index (BMI) of 37.0 to 37.9 in adult, unspecified obesity type Type 2 diabetes mellitus with hyperglycemia, with long-term current use of insulin Fatty liver Other chronic nonalcoholic liver disease History of colon polyps Mild CAD Type 2 diabetes mellitus with hyperglycemia, unspecified whether bed bug exterminator insulin use (Multi)- Primary Alexis's thyroiditis Chronic lymphocytic thyroiditis Type 2 diabetes mellitus with diabetic neuropathy, with long-term current use of insulin Alexis's thyroiditis- Primary Chronic lymphocytic thyroiditis Type 2 diabetes mellitus with hyperglycemia, unspecified whether fci insulin use (Multi) Multiple thyroid nodules Nontoxic multinodular goiter Routine general medical examination at health care facility- Primary Routine general medical examination at a health care facility HTN (hypertension), benign Essential hypertension, benign Screening mammogram for breast cancer Medicare annual wellness visit, subsequent Mild CAD Type 2 diabetes mellitus with diabetic neuropathy, with long-term current use of insulin Class 3 severe obesity without serious comorbidity with body mass index (BMI) of 40.0 to 44.9 in adult, unspecified obesity type History of colon polyps Spinal stenosis of lumbar region, unspecified whether neurogenic claudication present Hospital discharge follow-up- Primary Other follow-up examination HTN (hypertension), benign Essential hypertension, benign Hyperlipidemia, unspecified hyperlipidemia type Hypothyroidism, unspecified type Type 2 diabetes mellitus with diabetic neuropathy, with long-term current use of insulin Spinal stenosis of lumbar region, unspecified whether neurogenic claudication present Postoperative anemia Unspecified anemia Acute vaginitis Unspecified vaginitis and vulvovaginitis Leukocytosis, unspecified type Acute cystitis without hematuria- Primary Type 2 diabetes mellitus with diabetic neuropathy, with long-term current use of insulin Alexis's thyroiditis Chronic lymphocytic thyroiditis Multiple thyroid nodules Nontoxic multinodular goiter Type 2 diabetes mellitus with hyperglycemia, unspecified whether fci insulin use (Multi) Alexis's thyroiditis- Primary Chronic lymphocytic thyroiditis Type 2 diabetes mellitus with hyperglycemia, unspecified whether fci insulin use (Multi) Hyperlipidemia, unspecified hyperlipidemia type- Primary HTN (hypertension), benign Essential hypertension, benign Type 2 diabetes mellitus with diabetic neuropathy, with long-term current use of insulin Spinal stenosis of lumbar region, unspecified whether neurogenic claudication present SVT (supraventricular tachycardia) ([facility]) Other specified cardiac dysrhythmias Alexis's thyroiditis Chronic lymphocytic thyroiditis Class 2 obesity without serious comorbidity with body mass index (BMI) of 39.0 to 39.9 in adult, unspecified obesity type Gastroesophageal reflux disease, unspecified whether esophagitis present Recurrent UTI Urinary tract infection, site not specified Iron deficiency anemia, unspecified iron deficiency anemia type Anti-TPO antibodies present Type 2 diabetes mellitus with hyperglycemia, unspecified whether bed bug exterminator insulin use (Multi) Alexis's thyroiditis Chronic lymphocytic thyroiditis Hospital discharge follow-up- Primary Other follow-up examination Acute cystitis without hematuria ST elevation myocardial infarction involving left anterior descending (LAD) coronary artery (Multi) Hyperlipidemia, unspecified hyperlipidemia type HTN (hypertension), benign Essential hypertension, benign Coronary artery disease involving nenana coronary artery of nenana heart without angina pectoris Type 2 diabetes mellitus with diabetic neuropathy, with long-term current use of insulin Epigastric pain- Primary Abdominal pain, epigastric Eosinophilic esophagitis documented in this encounter [facility] Work Phone: Evaluation note* Diagnosis Type 2 diabetes mellitus with hyperglycemia, with long-term current use of insulin- Primary HTN (hypertension), benign Essential hypertension, benign Recurrent major depressive disorder, in partial remission ([facility]) Morbid (severe) obesity due to excess calories (Multi) Elevated AST (SGOT)- Primary Recurrent UTI Urinary tract infection, site not specified HTN (hypertension), benign Essential hypertension, benign Class 2 obesity without serious comorbidity with body mass index (BMI) of 37.0 to 37.9 in adult, unspecified obesity type Type 2 diabetes mellitus with hyperglycemia, with long-term current use of insulin Fatty liver Other chronic nonalcoholic liver disease History of colon polyps Mild CAD Type 2 diabetes mellitus with hyperglycemia, unspecified whether fci insulin use (Multi)- Primary Alexis's thyroiditis Chronic lymphocytic thyroiditis Type 2 diabetes mellitus with diabetic neuropathy, with long-term current use of insulin Alexis's thyroiditis- Primary Chronic lymphocytic thyroiditis Type 2 diabetes mellitus with hyperglycemia, unspecified whether fci insulin use (Multi) Multiple thyroid nodules Nontoxic multinodular goiter Routine general medical examination at health care facility- Primary Routine general medical examination at a health care facility HTN (hypertension), benign Essential hypertension, benign Screening mammogram for breast cancer Medicare annual wellness visit, subsequent Mild CAD Type 2 diabetes mellitus with diabetic neuropathy, with long-term current use of insulin Class 3 severe obesity without serious comorbidity with body mass index (BMI) of 40.0 to 44.9 in adult, unspecified obesity type History of colon polyps Spinal stenosis of lumbar region, unspecified whether neurogenic claudication present Hospital discharge follow-up- Primary Other follow-up examination HTN (hypertension), benign Essential hypertension, benign Hyperlipidemia, unspecified hyperlipidemia type Hypothyroidism, unspecified type Type 2 diabetes mellitus with diabetic neuropathy, with long-term current use of insulin Spinal stenosis of lumbar region, unspecified whether neurogenic claudication present Postoperative anemia Unspecified anemia Acute vaginitis Unspecified vaginitis and vulvovaginitis Leukocytosis, unspecified type Acute cystitis without hematuria- Primary Type 2 diabetes mellitus with diabetic neuropathy, with long-term current use of insulin Alexis's thyroiditis Chronic lymphocytic thyroiditis Multiple thyroid nodules Nontoxic multinodular goiter Type 2 diabetes mellitus with hyperglycemia, unspecified whether bed bug exterminator insulin use (Multi) Alexis's thyroiditis- Primary Chronic lymphocytic thyroiditis Type 2 diabetes mellitus with hyperglycemia, unspecified whether fci insulin use (Multi) Hyperlipidemia, unspecified hyperlipidemia type- Primary HTN (hypertension), benign Essential hypertension, benign Type 2 diabetes mellitus with diabetic neuropathy, with long-term current use of insulin Spinal stenosis of lumbar region, unspecified whether neurogenic claudication present SVT (supraventricular tachycardia) ([facility]) Other specified cardiac dysrhythmias Alexis's thyroiditis Chronic lymphocytic thyroiditis Class 2 obesity without serious comorbidity with body mass index (BMI) of 39.0 to 39.9 in adult, unspecified obesity type Gastroesophageal reflux disease, unspecified whether esophagitis present Recurrent UTI Urinary tract infection, site not specified Iron deficiency anemia, unspecified iron deficiency anemia type Anti-TPO antibodies present Type 2 diabetes mellitus with hyperglycemia, unspecified whether bed bug exterminator insulin use (Multi) Alexis's thyroiditis Chronic lymphocytic thyroiditis Hospital discharge follow-up- Primary Other follow-up examination Acute cystitis without hematuria ST elevation myocardial infarction involving left anterior descending (LAD) coronary artery (Multi) Hyperlipidemia, unspecified hyperlipidemia type HTN (hypertension), benign Essential hypertension, benign Coronary artery disease involving nenana coronary artery of nenana heart without angina pectoris Type 2 diabetes mellitus with diabetic neuropathy, with long-term current use of insulin ST elevation myocardial infarction involving left anterior descending (LAD) coronary artery (Multi)- Primary Ischemic cardiomyopathy Other specified forms of chronic ischemic heart disease Arteriosclerosis of coronary artery Hyperlipidemia, unspecified hyperlipidemia type SVT (supraventricular tachycardia) ([facility]) Other specified cardiac dysrhythmias HTN (hypertension), benign Essential hypertension, benign documented in this encounter [facility] Work Phone: Evaluation note* Diagnosis Type 2 diabetes mellitus with hyperglycemia, with long-term current use of insulin- Primary HTN (hypertension), benign Essential hypertension, benign Recurrent major depressive disorder, in partial remission Morbid (severe) obesity due to excess calories (Multi) Elevated AST (SGOT)- Primary Recurrent UTI Urinary tract infection, site not specified HTN (hypertension), benign Essential hypertension, benign Class 2 obesity without serious comorbidity with body mass index (BMI) of 37.0 to 37.9 in adult, unspecified obesity type Type 2 diabetes mellitus with hyperglycemia, with long-term current use of insulin Fatty liver Other chronic nonalcoholic liver disease History of colon polyps Mild CAD Type 2 diabetes mellitus with hyperglycemia, unspecified whether bed bug exterminator insulin use (Multi)- Primary Alexis's thyroiditis Chronic lymphocytic thyroiditis Type 2 diabetes mellitus with diabetic neuropathy, with long-term current use of insulin Alexis's thyroiditis- Primary Chronic lymphocytic thyroiditis Type 2 diabetes mellitus with hyperglycemia, unspecified whether bed bug exterminator insulin use (Multi) Multiple thyroid nodules Nontoxic multinodular goiter Routine general medical examination at health care facility- Primary Routine general medical examination at a health care facility HTN (hypertension), benign Essential hypertension, benign Screening mammogram for breast cancer Medicare annual wellness visit, subsequent Mild CAD Type 2 diabetes mellitus with diabetic neuropathy, with long-term current use of insulin Class 3 severe obesity without serious comorbidity with body mass index (BMI) of 40.0 to 44.9 in adult, unspecified obesity type History of colon polyps Spinal stenosis of lumbar region, unspecified whether neurogenic claudication present Hospital discharge follow-up- Primary Other follow-up examination HTN (hypertension), benign Essential hypertension, benign Hyperlipidemia, unspecified hyperlipidemia type Hypothyroidism, unspecified type Type 2 diabetes mellitus with diabetic neuropathy, with long-term current use of insulin Spinal stenosis of lumbar region, unspecified whether neurogenic claudication present Postoperative anemia Unspecified anemia Acute vaginitis Unspecified vaginitis and vulvovaginitis Leukocytosis, unspecified type Acute cystitis without hematuria- Primary Type 2 diabetes mellitus with diabetic neuropathy, with long-term current use of insulin Alexis's thyroiditis Chronic lymphocytic thyroiditis Multiple thyroid nodules Nontoxic multinodular goiter Type 2 diabetes mellitus with hyperglycemia, unspecified whether fci insulin use (Multi) Alexis's thyroiditis- Primary Chronic lymphocytic thyroiditis Type 2 diabetes mellitus with hyperglycemia, unspecified whether fci insulin use (Multi) Hyperlipidemia, unspecified hyperlipidemia type- Primary HTN (hypertension), benign Essential hypertension, benign Type 2 diabetes mellitus with diabetic neuropathy, with long-term current use of insulin Spinal stenosis of lumbar region, unspecified whether neurogenic claudication present SVT (supraventricular tachycardia) Other specified cardiac dysrhythmias Alexis's thyroiditis Chronic lymphocytic thyroiditis Class 2 obesity without serious comorbidity with body mass index (BMI) of 39.0 to 39.9 in adult, unspecified obesity type Gastroesophageal reflux disease, unspecified whether esophagitis present Recurrent UTI Urinary tract infection, site not specified Iron deficiency anemia, unspecified iron deficiency anemia type Anti-TPO antibodies present Type 2 diabetes mellitus with hyperglycemia, unspecified whether bed bug exterminator insulin use (Multi) Alexis's thyroiditis Chronic lymphocytic thyroiditis Hospital discharge follow-up- Primary Other follow-up examination Acute cystitis without hematuria ST elevation myocardial infarction involving left anterior descending (LAD) coronary artery (Multi) Hyperlipidemia, unspecified hyperlipidemia type HTN (hypertension), benign Essential hypertension, benign Coronary artery disease involving nenana coronary artery of nenana heart without angina pectoris Type 2 diabetes mellitus with diabetic neuropathy, with long-term current use of insulin Type 2 diabetes mellitus with hyperglycemia, with long-term current use of insulin documented in this encounter [facility] Work Phone: Evaluation note* Diagnosis Recurrent UTI- Primary Urinary tract infection, site not specified [facility]* Diagnosis Neoplasm of uncertain behavior of thyroid gland [facility]* Diagnosis Type 2 diabetes mellitus with hyperglycemia, with long-term current use of insulin- Primary HTN (hypertension), benign Essential hypertension, benign Recurrent major depressive disorder, in partial remission Morbid (severe) obesity due to excess calories (Multi) Elevated AST (SGOT)- Primary Recurrent UTI Urinary tract infection, site not specified HTN (hypertension), benign Essential hypertension, benign Class 2 obesity without serious comorbidity with body mass index (BMI) of 37.0 to 37.9 in adult, unspecified obesity type Type 2 diabetes mellitus with hyperglycemia, with long-term current use of insulin Fatty liver Other chronic nonalcoholic liver disease History of colon polyps Mild CAD Type 2 diabetes mellitus with hyperglycemia, unspecified whether bed bug exterminator insulin use (Multi)- Primary Alexis's thyroiditis Chronic lymphocytic thyroiditis Type 2 diabetes mellitus with diabetic neuropathy, with long-term current use of insulin Alexis's thyroiditis- Primary Chronic lymphocytic thyroiditis Type 2 diabetes mellitus with hyperglycemia, unspecified whether fci insulin use (Multi) Multiple thyroid nodules Nontoxic multinodular goiter Routine general medical examination at health care facility- Primary Routine general medical examination at a health care facility HTN (hypertension), benign Essential hypertension, benign Screening mammogram for breast cancer Medicare annual wellness visit, subsequent Mild CAD Type 2 diabetes mellitus with diabetic neuropathy, with long-term current use of insulin Class 3 severe obesity without serious comorbidity with body mass index (BMI) of 40.0 to 44.9 in adult, unspecified obesity type History of colon polyps Spinal stenosis of lumbar region, unspecified whether neurogenic claudication present Hospital discharge follow-up- Primary Other follow-up examination HTN (hypertension), benign Essential hypertension, benign Hyperlipidemia, unspecified hyperlipidemia type Hypothyroidism, unspecified type Type 2 diabetes mellitus with diabetic neuropathy, with long-term current use of insulin Spinal stenosis of lumbar region, unspecified whether neurogenic claudication present Postoperative anemia Unspecified anemia Acute vaginitis Unspecified vaginitis and vulvovaginitis Leukocytosis, unspecified type Acute cystitis without hematuria- Primary Type 2 diabetes mellitus with diabetic neuropathy, with long-term current use of insulin Alexis's thyroiditis Chronic lymphocytic thyroiditis Multiple thyroid nodules Nontoxic multinodular goiter Type 2 diabetes mellitus with hyperglycemia, unspecified whether bed bug exterminator insulin use (Multi) Alexis's thyroiditis- Primary Chronic lymphocytic thyroiditis Type 2 diabetes mellitus with hyperglycemia, unspecified whether bed bug exterminator insulin use (Multi) Hyperlipidemia, unspecified hyperlipidemia type- Primary HTN (hypertension), benign Essential hypertension, benign Type 2 diabetes mellitus with diabetic neuropathy, with long-term current use of insulin Spinal stenosis of lumbar region, unspecified whether neurogenic claudication present SVT (supraventricular tachycardia) Other specified cardiac dysrhythmias Alexis's thyroiditis Chronic lymphocytic thyroiditis Class 2 obesity without serious comorbidity with body mass index (BMI) of 39.0 to 39.9 in adult, unspecified obesity type Gastroesophageal reflux disease, unspecified whether esophagitis present Recurrent UTI Urinary tract infection, site not specified Iron deficiency anemia, unspecified iron deficiency anemia type Anti-TPO antibodies present Type 2 diabetes mellitus with hyperglycemia, unspecified whether bed bug exterminator insulin use (Multi) Alexis's thyroiditis Chronic lymphocytic thyroiditis Hospital discharge follow-up- Primary Other follow-up examination Acute cystitis without hematuria ST elevation myocardial infarction involving left anterior descending (LAD) coronary artery (Multi) Hyperlipidemia, unspecified hyperlipidemia type HTN (hypertension), benign Essential hypertension, benign Coronary artery disease involving nenana coronary artery of nenana heart without angina pectoris Type 2 diabetes mellitus with diabetic neuropathy, with long-term current use of insulin Type 2 diabetes mellitus with hyperglycemia, with long-term current use of insulin Routine general medical examination at health care facility- Primary Routine general medical examination at a health care facility Medicare annual wellness visit, subsequent HTN (hypertension), benign Essential hypertension, benign Hyperlipidemia, unspecified hyperlipidemia type Ischemic cardiomyopathy Other specified forms of chronic ischemic heart disease History of ST elevation myocardial infarction (STEMI) Morbid obesity with body mass index (BMI) of 40.0 to 44.9 in adult (Multi) Alexis's thyroiditis Chronic lymphocytic thyroiditis Type 2 diabetes mellitus with diabetic neuropathy, with long-term current use of insulin Vitamin D deficiency Gastroesophageal reflux disease, unspecified whether esophagitis present Eosinophilic esophagitis Recurrent major depressive disorder, in full remission Gout of foot, unspecified cause, unspecified chronicity, unspecified laterality Spinal stenosis of lumbar region, unspecified whether neurogenic claudication present Gout, unspecified cause, unspecified chronicity, unspecified site Screening mammogram for breast cancer documented in this encounter [facility] Work Phone: Evaluation note* Diagnosis Type 2 diabetes mellitus with hyperglycemia, with long-term current use of insulin- Primary HTN (hypertension), benign Essential hypertension, benign Recurrent major depressive disorder, in partial remission Morbid (severe) obesity due to excess calories (Multi) Elevated AST (SGOT)- Primary Recurrent UTI Urinary tract infection, site not specified HTN (hypertension), benign Essential hypertension, benign Class 2 obesity without serious comorbidity with body mass index (BMI) of 37.0 to 37.9 in adult, unspecified obesity type Type 2 diabetes mellitus with hyperglycemia, with long-term current use of insulin Fatty liver Other chronic nonalcoholic liver disease History of colon polyps Mild CAD Type 2 diabetes mellitus with hyperglycemia, unspecified whether fci insulin use (Multi)- Primary Alexis's thyroiditis Chronic lymphocytic thyroiditis Type 2 diabetes mellitus with diabetic neuropathy, with long-term current use of insulin Alexis's thyroiditis- Primary Chronic lymphocytic thyroiditis Type 2 diabetes mellitus with hyperglycemia, unspecified whether fci insulin use (Multi) Multiple thyroid nodules Nontoxic multinodular goiter Routine general medical examination at health care facility- Primary Routine general medical examination at a health care facility HTN (hypertension), benign Essential hypertension, benign Screening mammogram for breast cancer Medicare annual wellness visit, subsequent Mild CAD Type 2 diabetes mellitus with diabetic neuropathy, with long-term current use of insulin Class 3 severe obesity without serious comorbidity with body mass index (BMI) of 40.0 to 44.9 in adult, unspecified obesity type History of colon polyps Spinal stenosis of lumbar region, unspecified whether neurogenic claudication present Hospital discharge follow-up- Primary Other follow-up examination HTN (hypertension), benign Essential hypertension, benign Hyperlipidemia, unspecified hyperlipidemia type Hypothyroidism, unspecified type Type 2 diabetes mellitus with diabetic neuropathy, with long-term current use of insulin Spinal stenosis of lumbar region, unspecified whether neurogenic claudication present Postoperative anemia Unspecified anemia Acute vaginitis Unspecified vaginitis and vulvovaginitis Leukocytosis, unspecified type Acute cystitis without hematuria- Primary Type 2 diabetes mellitus with diabetic neuropathy, with long-term current use of insulin Alexis's thyroiditis Chronic lymphocytic thyroiditis Multiple thyroid nodules Nontoxic multinodular goiter Type 2 diabetes mellitus with hyperglycemia, unspecified whether fci insulin use (Multi) Alexis's thyroiditis- Primary Chronic lymphocytic thyroiditis Type 2 diabetes mellitus with hyperglycemia, unspecified whether bed bug exterminator insulin use (Multi) Hyperlipidemia, unspecified hyperlipidemia type- Primary HTN (hypertension), benign Essential hypertension, benign Type 2 diabetes mellitus with diabetic neuropathy, with long-term current use of insulin Spinal stenosis of lumbar region, unspecified whether neurogenic claudication present SVT (supraventricular tachycardia) Other specified cardiac dysrhythmias Alexis's thyroiditis Chronic lymphocytic thyroiditis Class 2 obesity without serious comorbidity with body mass index (BMI) of 39.0 to 39.9 in adult, unspecified obesity type Gastroesophageal reflux disease, unspecified whether esophagitis present Recurrent UTI Urinary tract infection, site not specified Iron deficiency anemia, unspecified iron deficiency anemia type Anti-TPO antibodies present Type 2 diabetes mellitus with hyperglycemia, unspecified whether bed bug exterminator insulin use (Multi) Alexis's thyroiditis Chronic lymphocytic thyroiditis Hospital discharge follow-up- Primary Other follow-up examination Acute cystitis without hematuria ST elevation myocardial infarction involving left anterior descending (LAD) coronary artery (Multi) Hyperlipidemia, unspecified hyperlipidemia type HTN (hypertension), benign Essential hypertension, benign Coronary artery disease involving nenana coronary artery of nenana heart without angina pectoris Type 2 diabetes mellitus with diabetic neuropathy, with long-term current use of insulin Type 2 diabetes mellitus with hyperglycemia, with long-term current use of insulin Routine general medical examination at health care facility- Primary Routine general medical examination at a health care facility Medicare annual wellness visit, subsequent HTN (hypertension), benign Essential hypertension, benign Hyperlipidemia, unspecified hyperlipidemia type Ischemic cardiomyopathy Other specified forms of chronic ischemic heart disease History of ST elevation myocardial infarction (STEMI) Morbid obesity with body mass index (BMI) of 40.0 to 44.9 in adult (Multi) Alexis's thyroiditis Chronic lymphocytic thyroiditis Type 2 diabetes mellitus with diabetic neuropathy, with long-term current use of insulin Vitamin D deficiency Gastroesophageal reflux disease, unspecified whether esophagitis present Eosinophilic esophagitis Recurrent major depressive disorder, in full remission Gout of foot, unspecified cause, unspecified chronicity, unspecified laterality Spinal stenosis of lumbar region, unspecified whether neurogenic claudication present Gout, unspecified cause, unspecified chronicity, unspecified site Screening mammogram for breast cancer Screening mammogram for breast cancer documented in this encounter [facility] Work Phone: Evaluation note* Diagnosis Onset Date Resolution Status Admit Date Right knee pain acute March 10:13am Low back pain chronic April 05, 2025 10:13am [facility] Work Phone: Evaluation note* Diagnosis Type 2 diabetes mellitus with hyperglycemia, with long-term current use of insulin- Primary HTN (hypertension), benign Essential hypertension, benign Recurrent major depressive disorder, in partial remission Morbid (severe) obesity due to excess calories (Multi) Elevated AST (SGOT)- Primary Recurrent UTI Urinary tract infection, site not specified HTN (hypertension), benign Essential hypertension, benign Class 2 obesity without serious comorbidity with body mass index (BMI) of 37.0 to 37.9 in adult, unspecified obesity type Type 2 diabetes mellitus with hyperglycemia, with long-term current use of insulin Fatty liver Other chronic nonalcoholic liver disease History of colon polyps Mild CAD Type 2 diabetes mellitus with hyperglycemia, unspecified whether fci insulin use (Multi)- Primary Alexis's thyroiditis Chronic lymphocytic thyroiditis Type 2 diabetes mellitus with diabetic neuropathy, with long-term current use of insulin Alexis's thyroiditis- Primary Chronic lymphocytic thyroiditis Type 2 diabetes mellitus with hyperglycemia, unspecified whether bed bug exterminator insulin use (Multi) Multiple thyroid nodules Nontoxic multinodular goiter Routine general medical examination at health care facility- Primary Routine general medical examination at a health care facility HTN (hypertension), benign Essential hypertension, benign Screening mammogram for breast cancer Medicare annual wellness visit, subsequent Mild CAD Type 2 diabetes mellitus with diabetic neuropathy, with long-term current use of insulin Class 3 severe obesity without serious comorbidity with body mass index (BMI) of 40.0 to 44.9 in adult, unspecified obesity type History of colon polyps Spinal stenosis of lumbar region, unspecified whether neurogenic claudication present Hospital discharge follow-up- Primary Other follow-up examination HTN (hypertension), benign Essential hypertension, benign Hyperlipidemia, unspecified hyperlipidemia type Hypothyroidism, unspecified type Type 2 diabetes mellitus with diabetic neuropathy, with long-term current use of insulin Spinal stenosis of lumbar region, unspecified whether neurogenic claudication present Postoperative anemia Unspecified anemia Acute vaginitis Unspecified vaginitis and vulvovaginitis Leukocytosis, unspecified type Acute cystitis without hematuria- Primary Type 2 diabetes mellitus with diabetic neuropathy, with long-term current use of insulin Alexis's thyroiditis Chronic lymphocytic thyroiditis Multiple thyroid nodules Nontoxic multinodular goiter Type 2 diabetes mellitus with hyperglycemia, unspecified whether bed bug exterminator insulin use (Multi) Alexis's thyroiditis- Primary Chronic lymphocytic thyroiditis Type 2 diabetes mellitus with hyperglycemia, unspecified whether bed bug exterminator insulin use (Multi) Hyperlipidemia, unspecified hyperlipidemia type- Primary HTN (hypertension), benign Essential hypertension, benign Type 2 diabetes mellitus with diabetic neuropathy, with long-term current use of insulin Spinal stenosis of lumbar region, unspecified whether neurogenic claudication present SVT (supraventricular tachycardia) Other specified cardiac dysrhythmias Alexis's thyroiditis Chronic lymphocytic thyroiditis Class 2 obesity without serious comorbidity with body mass index (BMI) of 39.0 to 39.9 in adult, unspecified obesity type Gastroesophageal reflux disease, unspecified whether esophagitis present Recurrent UTI Urinary tract infection, site not specified Iron deficiency anemia, unspecified iron deficiency anemia type Anti-TPO antibodies present Type 2 diabetes mellitus with hyperglycemia, unspecified whether fci insulin use (Multi) Alexis's thyroiditis Chronic lymphocytic thyroiditis Hospital discharge follow-up- Primary Other follow-up examination Acute cystitis without hematuria ST elevation myocardial infarction involving left anterior descending (LAD) coronary artery (Multi) Hyperlipidemia, unspecified hyperlipidemia type HTN (hypertension), benign Essential hypertension, benign Coronary artery disease involving nenana coronary artery of nenana heart without angina pectoris Type 2 diabetes mellitus with diabetic neuropathy, with long-term current use of insulin Type 2 diabetes mellitus with hyperglycemia, with long-term current use of insulin Routine general medical examination at [facility] care facility- Primary Routine general medical examination at a [facility] facility Medicare annual wellness visit, subsequent HTN (hypertension), benign Essential hypertension, benign Hyperlipidemia, unspecified hyperlipidemia type Ischemic cardiomyopathy Other specified forms of chronic ischemic heart disease History of ST elevation myocardial infarction (STEMI) Morbid obesity with body mass index (BMI) of 40.0 to 44.9 in adult (Multi) Alexis's thyroiditis Chronic lymphocytic thyroiditis Type 2 diabetes mellitus with diabetic neuropathy, with long-term current use of insulin Vitamin D deficiency Gastroesophageal reflux disease, unspecified whether esophagitis present Eosinophilic esophagitis Recurrent major depressive disorder, in full remission Gout of foot, unspecified cause, unspecified chronicity, unspecified laterality Spinal stenosis of lumbar region, unspecified whether neurogenic claudication present Gout, unspecified cause, unspecified chronicity, unspecified site Screening mammogram for breast cancer Type 2 diabetes mellitus with hyperglycemia, with long-term current use of insulin- Primary documented in this encounter [facility] Work Phone: History of Present illness Narrative* Patient returns for follow-up. She continues to have bilateral leg radicular pain. MRI shows severecentral stenosis at L3-4 above a prior L4-S1 laminectomy and fusion. Physical therapy has been completed at [facility]. * I reviewed her imaging studies again today. CT scan shows a healed fusion from L4-S1 without evidence of hardware failure or loosening. * There is scoliosis with collapse asymmetrically of the disc space at L3-4. * She has junctional stenosis with scoliosis. I explained that we would need to do a revision laminectomy and fusion extending up to the L3 level, however given the fact that is at the apex of the curvature this could be quite problematic. I also recommended addressing her curvature there, this can be done through a direct lateral approach in order to level out the L3-4 disc space. This will allow us to stop her fusion at L3 and minimize the risk of further adjacent segment disease due to alignment issues. * I also explained the goal of surgery is to improve her leg pain as well as standing and walking endurance. There is no guarantee she has any improvement in her back pain symptoms and she understands this. * Furthermore we discussed that she may still require use of a cane or walker after surgery even if this means she will be able to walk for greater length of time. * I discussed the risks of surgery including bleeding, infection, paralysis, muscle weakness, CSF leak, bowel or bladder dysfunction, incomplete resolution of pain or numbness, DVT/PE, heart attack, stroke, and other unforeseen medical and anesthesia complications. Risks of the lateral retroperitoneal approach were also discussed including groin and thigh pain, lateral thigh numbness, femoral nervepalsy, foot drop, injury to structures surrounding the spine such as major neurologic, vascular, orbowel injury, and postoperative ileus. I also explained that the typical success rates for operation such as this fall in the 80-85% range, and that there is a small chance that there will be no improvement, or even less commonly, worsening of the preoperative symptoms. She verbalized understandingof the risks, benefits, and alternatives to surgical treatment. The plan will be for L3-4 anterior lumbar interbody fusion (open, none endoscopic approach), with same-day L3-4 open laminectomy and fusion. Surgery was scheduled for June 12. * This note was dictated using speech recognition software and was not corrected for spelling or grammatical errors. [facility] Work Phone: History of Present illness Narrative* Patient is 3- month status post L3-4 XLIF with lateral plate for junctional stenosis. She continues to do well. She is doing aquatic physical therapy and feels very good. She denies any radicular painin her legs. Overall she is feeling quite well. * Incisions are well-healed without evidence of infection. Strength is normal in the lower extremities bilaterally. Slightly forward leaning gait using a rollator walker. * X-rays show stable alignment of her fusion. * I advised continued exercise and activities as tolerated. She can follow-up with me on an as-neededbasis. * This note was dictated using speech recognition software and was not corrected for spelling or grammatical errors. [place] [address] Work Phone: History of Present illness Narrative* Patient is 3- week status post L3-4 XLIF with lateral plate for junctional stenosis and disc herniation. She is doing very well postoperatively. She complains only of lower backache. Her legs feel much better and she is able to stand up straighter and walk longer at this point. * On exam her incisions are well-healed. Strength is normal in the lower extremities. Upright gait, barely using walker at this point. * I reviewed x-rays taken today. These show stable alignment of her fusion. No evidence of hardware failure or loosening. * I recommended some aquatic physical therapy at this point. She will follow-up with me in 3 months for repeat x-rays of the lumbar spine, AP and lateral only. She did request a refill of tizanidine and I sent that to the pharmacy today. * This note was dictated using speech recognition software and was not corrected for spelling or grammatical errors. [facility] Work Phone: Hospital Discharge instructions* Instructions* Marc Garcia, JAMESON - 06/08/2021 Images from the original note were not included. Upper GI Endoscopy: What to expect at home ACTIVITY: DO NOT DRIVE, OPERATE MACHINERY, OR DRINK ANY ALCOHOL TODAY. Avoid making critical decisions, signing legal documents, or performing any activity that requires alertness for the rest of the day. You may be bloated or have gas pains since air was introduced into the stomach for the procedure. You may need to pass the gas throughout the day. You may experience a mild sore throat. You may use an jmab-equ-fxgsohs chloraseptic spray, gargle with warm salt water, or use throat lozenges. Notify your physician if this feeling lasts more than 48 hours. Rest the remainder of the day. You may resume normal activity tomorrow. You may return to work tomorrow. DIET: You may resume a normal diet unless notified or recommended by your physician. You may be eager to eat a large meal after fasting, but it is a good idea to start with light mealsand ease into solid foods the first day. (*) If your stomach is upset, try clear liquids and bland, low-fat foods like plain toast or rice. Drink plenty of fluids for the first 24 hours (unless your physician states otherwise). MEDICATION: Resume your normal home medications unless notified or recommended by your physician. If you take blood thinners (such as Coumadin, Eliquis, Plavix, Aspirin, etc.) or anti-inflammatory medications (Advil, Motrin, Aleve, etc.), ask your physician when you may resume these medications. FOLLOW-UP APPOINTMENT: Follow up with or call your physician as needed. When to call for help: Call your doctor IMMEDIATELY or seek medical care if you experience: Severe pain or vomiting Coughing up more than a teaspoon of blood You pass a large amount of tar-like stools Your belly is swollen and firm with severe pain A fever greater than 101 degrees Redness or swelling of arm from the IV site for more than 48 hours Sudden onset of chest pain or shortness of breath If you become extremely dizzy or pass out (lose consciousness) IF YOU ARE UNABLE TO REACH YOUR PHYSICIAN GO TO NEAREST EMERGENCY DEPARTMENT Colon Polyps You must carefully read the Consumer Information Use and Disclaimer below in order to understand and correctly use this information The Basics Written by the doctors and editors at [facility] What are colon polyps? Colon polyps are tiny growths that form on the inside of the large intestine(also known as the colon) (figure 1). Polyps are very common. Roughly one-third to one-half of all adults have them. They do not usually cause symptoms. But some polyps can be or become cancer, so doctors sometimes remove them. What are the symptoms of colon polyps? Colon polyps do not usually cause symptoms. How do doctors find colon polyps? Doctors usually find colon polyps when they are doing screening tests to check for colon or rectal cancer. Cancer screening tests are tests that are done to try and find cancer early, before a person has symptoms. The screening tests for colon and rectal cancer include: ?Colonoscopy Before having a colonoscopy, you will get medicine to help you relax. Then a doctor will put a thin tube into your anus and advance it into your colon (figure 2). The tube has a camera attached to it, so the doctor can look inside your colon. The tube also has tools on the end, so the doctor can remove pieces of tissue, including polyps. After polyps are removed, they usually go to [facility] to be tested for cancer and other problems. ?Sigmoidoscopy A sigmoidoscopy is very similar to a colonoscopy. The only difference is that this test looks only at the first part of the colon, and a colonoscopy looks at the whole colon. ?CT colonography (also known as virtual colonoscopy) For a virtual colonoscopy, you have a special kind of X-ray taken, called a CT scan. This test creates pictures of the colon. ?Barium enema During a barium enema, a doctor or nurse squirts a fluid that shows up on X-rays intoyour rectum. Then he or she takes X-rays to create pictures of the colon. ?Stool test Stool is another word for bowel movements. Stool tests check for blood or abnormalgenes in samples of stool. If a stool test indicates that something might be wrong with the colon, doctors usually follow up with a colonoscopy. Then doctors find polyps, if they are there. How are colon polyps treated? Doctors remove polyps using the same tools they use for a colonoscopy. They can remove polyps either by snipping them off with a special cutting tool, or by catching thepolyps in a noose (figure 3). Most polyps can be removed during a colonoscopy. But sometimes, largepolyps need to be removed at a later time. What happens after I have polyps removed? You might need to have a colonoscopy every few years to check for more polyps. In some people polyps come back. And if you had the kind of polyps that could become cancer, your doctor will want to remove them as they appear. Also, if the polyps you had removed were the kind that could become cancer, people in your family might need to be checked for polyps and colon cancer, too. Can colon polyps be prevented? To reduce your chances of getting (more) polyps or colon cancer: ?Eat a diet that is low in fat and high in fruits, vegetables, and fiber ?Lose weight, if you are overweight ?Do not smoke ?Limit the amount of alcohol you drink All topics are updated as new evidence becomes available and our peer review process is complete. Topic 17089 Version 5.0 Release: 25.3 - C25.127 2017 [employer]. All rights reserved. documented in this [facility] Work Phone: Hospital Discharge instructions* Activity:activity with assistance and PROGRESSIVE MOBILIZATION W/WALKER OR CANE. May not shower WHEN NO DRAINAGE FROM INCISIONAL AREA FOR [address] until follow-up visit or while takingnarcotic medication. No pushing, pulling, or lifting objects greater than 10 pounds. Weight-bearingInstructions: full weight bearing. Other activity instructions: NO EXCESSIVE BENDING/TWISTING, NO HEAVY HOUSE/YARD WORK. * Wound Care 1:Wound Site: LATERAL/ FLANKWound Type: surgical incisionChange Dressing: daily, UNTIL NO LONGER DRAINING, THEN YOU CAN LEAVE THE DRSG. OFFCleanse With: soap and water, ONCE THE INCISION IS NO LONGER DRAINING AND YOU ARE ABLE TO SHOWER.Cover With: abdominal dressingTape With: paper tapeIn structions: no lotions, creams, or tub soaksOther Instructions: If there is a prineo dressing (Strip) over your incision, do not remove it with your dressing changes. The dressing will slowly lift away from the skin over time. * Additional Orders:Blood Glucose Monitoring: Before Meals and BedtimeAdditional Instructions: MAY USE HEAT OR ICE TO YOUR BACK NEEDED FOR COMFORT NO NSAIDS (ADVIL, IBUPROFEN, ALEVE... ETC.) FOR 8 WEEKS, THEY HAVE A BAD EFFECT ON HEALING OF FUSION. * Call Provider If:Breathing faster than normal. Temperature is greater than 102 degrees. Chills. Urinating less than 4 times per day. Acting very sleepy and difficult to awaken. Vomiting (throwing up)and not able to eat or drink for 12 hours. 3 or more loose, watery bowel movements in 24 hours (diarrhea). Any new concerning symptoms. ANY CONCERNS OVER APPEARANCE OF INCISION PLEASE CALL IN ADVANCEWHEN RUNNING LOW ON PAIN MEDS. A PRESCRIPTION EITHER WILL NEED TO BE ELECTRONICALLY SENT OR PICKED UP IN ONE OF THE OFFICES. * Care Recommendation:I recommend that INPATIENT care is required at: Acute rehabEstimated Stay: Convalescent stay < 30 daysPrognosis: GoodRehab Potential/Function: Improve * Therapy Orders:Occupational Therapy Orders: Eval [facility] Treat ([facility]), 3-5 times/weekPhysical Therapy Orders: Eval and Treat ([facility]), 3-5 times/week * Provider Follow Up:Physician To Follow at Skilled/Rehab: Attending Physician at Skilled/Rehab * Follow Up Appointment 1:Physician/Dept/Service: Dr. Zena Pablo/ Orthopaedic Surgery/ SpineReason for Referral: Postoperative Follow Up AppointmentScheduled Date/Time: 20-Aug-2022 09:45Location: [address], Phone Number: Office: ([place], SecChristopher) - [phone]: Please Call Saranya Hutton RN at [phone] For Any Post-Op Questions [facility] for referral (narrative)* Reason for Referral: Lumbar stenosis, L3-4 XLIF with plate application from L3-4 [facility] ([facility])* Consultation (Routine) - Authorized Specialty Diagnoses / Procedures Referred By Contjuan carlos t Referred To Contact Endocrinology Diagnoses Type 2 diabetes mellitus with hyperglycemia, with long-term current use of insulin ([facility]) Procedures [place] OFFICE/OUTPATIENT NEW HIGH MDM 60-74 MINUTES Prince Vickers DO [address] [facility], [address] [address] Cat Richardson MD [address] [place] [address] Referral ID Status Reason Start Date Expiration Date Visits Requested Visits Authorized [id number] Authorized Specialty Services Required 04/09/2023 10/06/2023 1 1 [facility] Work Phone: Reason for referral (narrative)* Consultation (Routine) - Authorized Specialty Diagnoses / Procedures Referred By Contac t Referred To Contact Primary Care Diagnoses HTN (hypertension), benign Procedures Follow Up In Advanced Primary Care - PCP - Established Tess Ontiveros DO [address] [facility], [place] [address] [place] [id number] Referral ID Status Reason Start Date Expiration Date V isits Requested Visits Authorized [id number] Authorized 08/21/2023 08/20/2024 1 1 [facility] Work Phone: Reibfk for referral (narrative)* Consultation (Routine) - Authorized Specialty Diagnoses / Procedures Referred By Contac t Referred To Contact Endocrinology Diagnoses Type 2 diabetes mellitus with hyperglycemia, unspecified whether bed bug exterminator insulin use (CMS/HCC) Alexis's thyroiditis Procedures Follow Up In Endocrinology Cat Richardson MD [address] [place] [address] Referral ID Status Reason Start Date Expiration Date V isits Requested Visits Authorized [id number] Authorized 10/21/2023 10/20/2024 1 1 [facility] Work Phone: reason for referral (narrative)* Consultation (Routine) - Authorized Specialty Diagnoses / Procedures Referred By Contac t Referred To Contact Endocrinology Diagnoses Alexis's thyroiditis Type 2 diabetes mellitus with hyperglycemia, unspecified whether fci insulin use ([facility]) Procedures Follow Up In Endocrinology Cat Richardson MD [address] [place] [address] Referral ID Status Reason Start Date Expiration Date V isits Requested Visits Authorized [id number] Authorized 02/24/2024 02/23/2025 1 1 [facility] Work Phone: reason for referral (narrative)* Consultation (Routine) - Authorized Specialty Diagnoses / Procedures Referred By Contac t Referred To Contact Primary Care Diagnoses HTN (hypertension), benign Procedures Follow Up In Advanced Primary Care - PCP - Established Dean Nick MD [address] [facility], [place] [address] [place] [address] Tess Ontiveros DO [address] [facility], [facility] [address] [place] [address] Referral ID Status Reason Start Date Expiration Date V isits Requested Visits Authorized [id number] Authorized 05/11/2024 05/11/2025 1 1 [facility] Work Phone: Reason for referral (narrative)* Consultation (Routine) - Authorized Specialty Diagnoses / Procedures Referred By Contac t Referred To Contact Gastroenterology Diagnoses Epigastric pain Tess Ontiveros DO [address] [facility], [place] [address] [place] [address] Referral ID Status Reason Start Date Expiration Date Visits Requested Visits Authorized [id number] Authorized Specialty Services Required 05/27/2024 05/27/2025 1 1 * Consultation (Routine) - Authorized Specialty Diagnoses / Procedures Referred By Contac t Referred To Contact Urology Diagnoses Recurrent UTI Tess Ontiveros DO [address] [facility], [place] [address] [place] [address] Referral ID Status Reason Start Date Expiration Date Visits Requested Visits Authorized [id number] Authorized Specialty Services Required 05/27/2024 05/27/2025 1 1 * Cardiovascular (Routine) - Authorized Specialty Diagnoses / Procedures Referred By Contac t Referred To Contact Diagnoses Tachycardia Procedures ECG 12 lead (Clinic Performed) Tess Ontiveros DO [address] [facility], [place] [address] [place] [address] Referral ID Status Reason Start Date Expiration Date V isits Requested Visits Authorized [id number] Authorized 05/27/2024 05/27/2025 1 1 * Cardiac Stress Testing (Routine) - Authorized Specialty Diagnoses / Procedures Referred By Contac t Referred To Contact Cardiology Diagnoses Tachycardia Procedures Holter or Event 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 Tess Ontiveros DO [address] [facility], [place] [address] [place] [address] Referral ID Status Reason Start Date Expiration Date V isits Requested Visits Authorized [id number] Authorized 05/27/2024 05/27/2025 1 1 [facility] Work Phone: Recgtd for referral (narrative)No reason for referral information availableWUniversity [facility] Work Phone: Reason for visit Narrative* Endoscopy (Routine) - Authorized Specialty Diagnoses / Procedures Referred By Contact Referred To Contact Gastroenterology Diagnoses Epigastric pain Procedures Esophagogastroduodenoscopy (EGD) AK ESOPHAGOGASTRODUODENOSCOPY TRANSORAL DIAGNOSTIC AK EGD TRANSORAL BIOPSY SINGLE/MULTIPLE Ji Galo MD [address] [address] Phone: tel:[phone] fax:[phone] Referral ID Status Reason Start Date Expiration Date V isits Requested Visits Authorized [id number] Authorized 10/20/2024 10/20/2025 1 1 [facility] Work Phone: Rexmvf for visit Narrative* Imaging (Routine) - Authorized Specialty Diagnoses / Procedures Referred By Contac t Referred To Contact Radiology Diagnoses Epigastric pain Periumbilical pain Procedures CT abdomen pelvis w IV and oral contrast Silas Stern MD [address] [address] Phone: tel: fax: Referral ID Status Reason Start Date Expiration Date Visits Requested Visits Authorized [id number] Authorized Perform Procedure 10/30/2024 10/30/2025 1 1 [facility] Work Phone: Reason for visit Narrative* Cardiovascular (Routine) - Authorized Specialty Diagnoses / Procedures Referred By Rohit zuniga Referred To Contact Diagnoses Coronary artery disease involving nenana coronary artery of nenana heart without angina pectoris ST elevation myocardial infarction involving left anterior descending (LAD) coronary artery (Multi) SVT (supraventricular tachycardia) ([facility]) Procedures ECG 12 lead (Clinic Performed) Radha Calderón APRN-CNP [address] [place] [address] Phone: tel: fax: Referral ID Status Reason Start Date Expiration Date V isits Requested Visits Authorized [id number] Authorized 12/17/2024 12/17/2025 1 1 [facility] Work Phone: Reason for visit Narrative* Imaging (Routine) - Authorized Specialty Diagnoses / Procedures Referred By Rohit zuniga Referred To Contact Radiology Diagnoses Screening mammogram for breast cancer Procedures BI mammo bilateral screening tomosynthesis Tess Ontiveros DO [address] [facility], [facility] [address] [place] [address] Phone: tel: fax: Referral ID Status Reason Start Date Expiration Date Visits Requested Visits Authorized [id number] Authorized Perform Procedure 02/24/2025 02/24/2026 1 1 [facility] Work Phone: Summary Purpose Family History natural son Name Dates Details Family history of alcohol ab use(V61.41, Z81.1) Status:Active Family history of asthma(V17 .5, Z82.5) Status:Active Sibling Name Dates Details Family history of cerebrovas cular accident (CVA)(V17.1, Z82.3) Status:Active Family history of myocardial infarction(V17.3, Z82.49) Status:Active Family history of High branden sterol(272.0, E78.00) Status:Active Family history of diabetes m ellitus(V18.0, Z83.3) Status:Active Family history of malignant neoplasm(V16.9, Z80.9) Status:Active Grandmother Name Dates Details Family history of myocardial infarction(V17.3, Z82.49) Status:Active Family history of diabetes m ellitus(V18.0, Z83.3) Status:Active uncle Name Dates Details Family history of myocardial infarction(V17.3, Z82.49) Status:Active Mother Name Dates Details Family history of cerebrovas cular accident (CVA)(V17.1, Z82.3) Status:Active Family history of myocardial infarction(V17.3, Z82.49) Status:Active Family history of coronary a rtery disease(V17.3, Z82.49) Status:Active Family history of High branden sterol(272.0, E78.00) Status:Active Family history of diabetes m ellitus(V18.0, Z83.3) Status:Active Father Name Dates Details Family history of alcohol ab use(V61.41, Z81.1) Status:Active Family history of lung cance r(V16.1, Z80.1) Status:Active Sister Name Dates Details Family history of Sinus prob richie(473.9, J34.9) Status:Active Family history of Seasonal a llergies(477.9, J30.2) Status:Active natural son Name Dates Details Family history of alcohol ab use(V61.41, Z81.1) Status:Active Family history of asthma(V17 .5, Z82.5) Status:Active Sibling Name Dates Details Family history of cerebrovas cular accident (CVA)(V17.1, Z82.3) Status:Active Family history of myocardial infarction(V17.3, Z82.49) Status:Active Family history of High branden sterol(272.0, E78.00) Status:Active Family history of diabetes m ellitus(V18.0, Z83.3) Status:Active Family history of malignant neoplasm(V16.9, Z80.9) Status:Active Grandmother Name Dates Details Family history of myocardial infarction(V17.3, Z82.49) Status:Active Family history of diabetes m ellitus(V18.0, Z83.3) Status:Active uncle Name Dates Details Family history of myocardial infarction(V17.3, Z82.49) Status:Active Mother Name Dates Details Family history of cerebrovas cular accident (CVA)(V17.1, Z82.3) Status:Active Family history of myocardial infarction(V17.3, Z82.49) Status:Active Family history of coronary a rtery disease(V17.3, Z82.49) Status:Active Family history of High branden sterol(272.0, E78.00) Status:Active Family history of diabetes m ellitus(V18.0, Z83.3) Status:Active Father Name Dates Details Family history of alcohol ab use(V61.41, Z81.1) Status:Active Family history of lung cance r(V16.1, Z80.1) Status:Active Sister Name Dates Details Family history of Sinus prob richie(473.9, J34.9) Status:Active Family history of Seasonal a llergies(477.9, J30.2) Status:Active natural son Name Dates Details Family history of alcohol ab use(V61.41, Z81.1) Status:Active Family history of asthma(V17 .5, Z82.5) Status:Active Sibling Name Dates Details Family history of cerebrovas cular accident (CVA)(V17.1, Z82.3) Status:Active Family history of myocardial infarction(V17.3, Z82.49) Status:Active Family history of High branden sterol(272.0, E78.00) Status:Active Family history of diabetes m ellitus(V18.0, Z83.3) Status:Active Family history of malignant neoplasm(V16.9, Z80.9) Status:Active Grandmother Name Dates Details Family history of myocardial infarction(V17.3, Z82.49) Status:Active Family history of diabetes m ellitus(V18.0, Z83.3) Status:Active uncle Name Dates Details Family history of myocardial infarction(V17.3, Z82.49) Status:Active Mother Name Dates Details Family history of cerebrovas cular accident (CVA)(V17.1, Z82.3) Status:Active Family history of myocardial infarction(V17.3, Z82.49) Status:Active Family history of coronary a rtery disease(V17.3, Z82.49) Status:Active Family history of High branden sterol(272.0, E78.00) Status:Active Family history of diabetes m ellitus(V18.0, Z83.3) Status:Active Father Name Dates Details Family history of alcohol ab use(V61.41, Z81.1) Status:Active Family history of lung cance r(V16.1, Z80.1) Status:Active Sister Name Dates Details Family history of Sinus prob richie(473.9, J34.9) Status:Active Family history of Seasonal a llergies(477.9, J30.2) Status:Active natural son Name Dates Details Family history of alcohol ab use(V61.41, Z81.1) Status:Active Family history of asthma(V17 .5, Z82.5) Status:Active Sibling Name Dates Details Family history of cerebrovas cular accident (CVA)(V17.1, Z82.3) Status:Active Family history of myocardial infarction(V17.3, Z82.49) Status:Active Family history of High branden sterol(272.0, E78.00) Status:Active Family history of diabetes m ellitus(V18.0, Z83.3) Status:Active Family history of malignant neoplasm(V16.9, Z80.9) Status:Active Grandmother Name Dates Details Family history of myocardial infarction(V17.3, Z82.49) Status:Active Family history of diabetes m ellitus(V18.0, Z83.3) Status:Active uncle Name Dates Details Family history of myocardial infarction(V17.3, Z82.49) Status:Active Mother Name Dates Details Family history of cerebrovas cular accident (CVA)(V17.1, Z82.3) Status:Active Family history of myocardial infarction(V17.3, Z82.49) Status:Active Family history of coronary a rtery disease(V17.3, Z82.49) Status:Active Family history of High branden sterol(272.0, E78.00) Status:Active Family history of diabetes m ellitus(V18.0, Z83.3) Status:Active Father Name Dates Details Family history of alcohol ab use(V61.41, Z81.1) Status:Active Family history of lung cance r(V16.1, Z80.1) Status:Active Sister Name Dates Details Family history of Sinus prob richie(473.9, J34.9) Status:Active Family history of Seasonal a llergies(477.9, J30.2) Status:Active Unknown Family Member Name Dates Details Family history of cerebrovas cular accident (CVA): Mother, Sibling(V17.1, Z82.3) Status:Active Family history of myocardial infarction: Mother, Sibling, Grandmother, Uncle(V17.3, Z82.49) Status:Active Family history of coronary a rtery disease: Mother(V17.3, Z82.49) Status:Active High cholesterol: Mother, Si mary Status:Active Family history of diabetes m ellitus: Mother, Sibling, Grandmother(V18.0, Z83.3) Status:Active Family history of alcohol ab use: Father, Son(V61.41, Z81.1) Status:Active Family history of lung cance r: Father(V16.1, Z80.1) Status:Active Family history of malignant neoplasm: Sibling(V16.9, Z80.9) Status:Active Family history of asthma: So n(V17.5, Z82.5) Status:Active Sinus problem: Sister Status:Active Seasonal allergies: Sister Status:Active Unknown Family Member Name Dates Details Family history of cerebrovas cular accident (CVA): Mother, Sibling(V17.1, Z82.3) Status:Active Family history of myocardial infarction: Mother, Sibling, Grandmother, Uncle(V17.3, Z82.49) Status:Active Family history of coronary a rtery disease: Mother(V17.3, Z82.49) Status:Active High cholesterol: Mother, Si mary Status:Active Family history of diabetes m ellitus: Mother, Sibling, Grandmother(V18.0, Z83.3) Status:Active Family history of alcohol ab use: Father, Son(V61.41, Z81.1) Status:Active Family history of lung cance r: Father(V16.1, Z80.1) Status:Active Family history of malignant neoplasm: Sibling(V16.9, Z80.9) Status:Active Family history of asthma: So n(V17.5, Z82.5) Status:Active Sinus problem: Sister Status:Active Seasonal allergies: Sister Status:Active Relationship Condition Age at Onset Recorded Date/T nikia Not Specified Diabetes mellitus Unknown Cardiac disease Unknown Myocardial infarction Unknown Hypertension Unknown grandmother Cerebral aneurysm Unknown Cerebrovascular accident (CVA) Unknown brother Cerebrovascular accident (CVA) Unknown Malignant neoplasm Unknown mother Cerebrovascular accident (CVA) Unknown father Malignant neoplasm Unknown Unknown Family Member Name Dates Details Family history of cerebrovas cular accident (CVA): Mother, Sibling(V17.1, Z82.3) Status:Active Family history of myocardial infarction: Mother, Sibling, Grandmother, Uncle(V17.3, Z82.49) Status:Active Family history of coronary a rtery disease: Mother(V17.3, Z82.49) Status:Active High cholesterol: Mother, Si mary Status:Active Family history of diabetes m ellitus: Mother, Sibling, Grandmother(V18.0, Z83.3) Status:Active Family history of alcohol ab use: Father, Son(V61.41, Z81.1) Status:Active Family history of lung cance r: Father(V16.1, Z80.1) Status:Active Family history of malignant neoplasm: Sibling(V16.9, Z80.9) Status:Active Family history of asthma: So n(V17.5, Z82.5) Status:Active Sinus problem: Sister Status:Active Seasonal allergies: Sister Status:Active Unknown Family Member Name Dates Details Family history of cerebrovas cular accident (CVA): Mother, Sibling(V17.1, Z82.3) Status:Active Family history of myocardial infarction: Mother, Sibling, Grandmother, Uncle(V17.3, Z82.49) Status:Active Family history of coronary a rtery disease: Mother(V17.3, Z82.49) Status:Active High cholesterol: Mother, Si mary Status:Active Family history of diabetes m ellitus: Mother, Sibling, Grandmother(V18.0, Z83.3) Status:Active Family history of alcohol ab use: Father, Son(V61.41, Z81.1) Status:Active Family history of lung cance r: Father(V16.1, Z80.1) Status:Active Family history of malignant neoplasm: Sibling(V16.9, Z80.9) Status:Active Family history of asthma: So n(V17.5, Z82.5) Status:Active Sinus problem: Sister Status:Active Seasonal allergies: Sister Status:Active Unknown Family Member Name Dates Details Seasonal allergies: Sister Status:Active Sinus problem: Sister Status:Active Family history of asthma: So n(V17.5, Z82.5) Status:Active Family history of malignant neoplasm: Sibling(V16.9, Z80.9) Status:Active Family history of lung cance r: Father(V16.1, Z80.1) Status:Active Family history of alcohol ab use: Father, Son(V61.41, Z81.1) Status:Active Family history of diabetes m ellitus: Mother, Sibling, Grandmother(V18.0, Z83.3) Status:Active High cholesterol: Mother, Si mary Status:Active Family history of coronary a rtery disease: Mother(V17.3, Z82.49) Status:Active Family history of myocardial infarction: Mother, Sibling, Grandmother, Uncle(V17.3, Z82.49) Status:Active Family history of cerebrovas cular accident (CVA): Mother, Sibling(V17.1, Z82.3) Status:Active Unknown Family Member Name Dates Details Seasonal allergies: Sister Status:Active Sinus problem: Sister Status:Active Family history of asthma: So n(V17.5, Z82.5) Status:Active Family history of malignant neoplasm: Sibling(V16.9, Z80.9) Status:Active Family history of lung cance r: Father(V16.1, Z80.1) Status:Active Family history of alcohol ab use: Father, Son(V61.41, Z81.1) Status:Active Family history of diabetes m ellitus: Mother, Sibling, Grandmother(V18.0, Z83.3) Status:Active High cholesterol: Mother, Si mary Status:Active Family history of coronary a rtery disease: Mother(V17.3, Z82.49) Status:Active Family history of myocardial infarction: Mother, Sibling, Grandmother, Uncle(V17.3, Z82.49) Status:Active Family history of cerebrovas cular accident (CVA): Mother, Sibling(V17.1, Z82.3) Status:Active Unknown Family Member Name Dates Details Family history of cerebrovas cular accident (CVA): Mother, Sibling(V17.1, Z82.3) Status:Active Family history of myocardial infarction: Mother, Sibling, Grandmother, Uncle(V17.3, Z82.49) Status:Active Family history of coronary a rtery disease: Mother(V17.3, Z82.49) Status:Active High cholesterol: Mother, Si mary Status:Active Family history of diabetes m ellitus: Mother, Sibling, Grandmother(V18.0, Z83.3) Status:Active Family history of alcohol ab use: Father, Son(V61.41, Z81.1) Status:Active Family history of lung cance r: Father(V16.1, Z80.1) Status:Active Family history of malignant neoplasm: Sibling(V16.9, Z80.9) Status:Active Family history of asthma: So n(V17.5, Z82.5) Status:Active Sinus problem: Sister Status:Active Seasonal allergies: Sister Status:Active Unknown Family Member Name Dates Details Seasonal allergies: Sister Status:Active Sinus problem: Sister Status:Active Family history of asthma: So n(V17.5, Z82.5) Status:Active Family history of malignant neoplasm: Sibling(V16.9, Z80.9) Status:Active Family history of lung cance r: Father(V16.1, Z80.1) Status:Active Family history of alcohol ab use: Father, Son(V61.41, Z81.1) Status:Active Family history of diabetes m ellitus: Mother, Sibling, Grandmother(V18.0, Z83.3) Status:Active High cholesterol: Mother, Si mary Status:Active Family history of coronary a rtery disease: Mother(V17.3, Z82.49) Status:Active Family history of myocardial infarction: Mother, Sibling, Grandmother, Uncle(V17.3, Z82.49) Status:Active Family history of cerebrovas cular accident (CVA): Mother, Sibling(V17.1, Z82.3) Status:Active Unknown Family Member Name Dates Details Family history of cerebrovas cular accident (CVA): Mother, Sibling(V17.1, Z82.3) Status:Active Family history of myocardial infarction: Mother, Sibling, Grandmother, Uncle(V17.3, Z82.49) Status:Active Family history of coronary a rtery disease: Mother(V17.3, Z82.49) Status:Active High cholesterol: Mother, Si mary Status:Active Family history of diabetes m ellitus: Mother, Sibling, Grandmother(V18.0, Z83.3) Status:Active Family history of alcohol ab use: Father, Son(V61.41, Z81.1) Status:Active Family history of lung cance r: Father(V16.1, Z80.1) Status:Active Family history of malignant neoplasm: Sibling(V16.9, Z80.9) Status:Active Seasonal allergies: Sister Status:Active Sinus problem: Sister Status:Active Family history of asthma: So n(V17.5, Z82.5) Status:Active Unknown Family Member Name Dates Details Seasonal allergies: Sister Status:Active Sinus problem: Sister Status:Active Family history of asthma: So n(V17.5, Z82.5) Status:Active Family history of malignant neoplasm: Sibling(V16.9, Z80.9) Status:Active Family history of lung cance r: Father(V16.1, Z80.1) Status:Active Family history of alcohol ab use: Father, Son(V61.41, Z81.1) Status:Active Family history of diabetes m ellitus: Mother, Sibling, Grandmother(V18.0, Z83.3) Status:Active High cholesterol: Mother, Si mary Status:Active Family history of coronary a rtery disease: Mother(V17.3, Z82.49) Status:Active Family history of myocardial infarction: Mother, Sibling, Grandmother, Uncle(V17.3, Z82.49) Status:Active Family history of cerebrovas cular accident (CVA): Mother, Sibling(V17.1, Z82.3) Status:Active Unknown Family Member Name Dates Details Family history of alcohol ab use: Father, Son(V61.41, Z81.1) Status:Active Family history of lung cance r: Father(V16.1, Z80.1) Status:Active Family history of malignant neoplasm: Sibling(V16.9, Z80.9) Status:Active Family history of asthma: So n(V17.5, Z82.5) Status:Active Sinus problem: Sister Status:Active Seasonal allergies: Sister Status:Active Family history of diabetes m ellitus: Mother, Sibling, Grandmother(V18.0, Z83.3) Status:Active High cholesterol: Mother, Si mary Status:Active Family history of coronary a rtery disease: Mother(V17.3, Z82.49) Status:Active Family history of myocardial infarction: Mother, Sibling, Grandmother, Uncle(V17.3, Z82.49) Status:Active Family history of cerebrovas cular accident (CVA): Mother, Sibling(V17.1, Z82.3) Status:Active Unknown Family Member Name Dates Details Family history of cerebrovas cular accident (CVA): Mother, Sibling(V17.1, Z82.3) Status:Active Family history of myocardial infarction: Mother, Sibling, Grandmother, Uncle(V17.3, Z82.49) Status:Active Family history of coronary a rtery disease: Mother(V17.3, Z82.49) Status:Active High cholesterol: Mother, Si mary Status:Active Family history of diabetes m ellitus: Mother, Sibling, Grandmother(V18.0, Z83.3) Status:Active Family history of alcohol ab use: Father, Son(V61.41, Z81.1) Status:Active Family history of lung cance r: Father(V16.1, Z80.1) Status:Active Family history of malignant neoplasm: Sibling(V16.9, Z80.9) Status:Active Family history of asthma: So n(V17.5, Z82.5) Status:Active Sinus problem: Sister Status:Active Seasonal allergies: Sister Status:Active Advance Directives Documents on File Type Date Recorded Patient Vp Transportation Expl anation Advance Directives and Isai Wu Power of Certified Endoscopy Technician 03/22/2016 12:00 AM Medi devyn POA Power of Certified Endoscopy Technician 03/22/2016 12:00 AM Gene ral POA Latest Code Status on File Code Status Date Activated Date Inactivated Comments Full Code 06/09/2019 8:59 PM Full Code 06/09/2019 10:41 AM 06/09/2019 8:38 PM Documents on File Type Date Recorded Patient Vp Transportation Expl anation Advance Directives and Livin g Will Advance Directives and Livin g Will 06/15/2019 8:20 AM Power of Certified Endoscopy Technician 03/22/2016 12:00 AM Medi devyn POA Power of Certified Endoscopy Technician 03/22/2016 12:00 AM Gene ral POA Latest Code Status on File Code Status Date Activated Date Inactivated Comments Full Code 06/09/2019 8:59 PM 06/11/2019 4:03 PM Latest Code Status on File Code Status Date Activated Date Inactivated Comments Full Code 03/11/2020 12:50 AM Documents on File Type Date Recorded Patient Vp Transportation Expl anation ACP-Advance Directive ACP-Advance Directive 06/15/2019 8:20 AM ACP-Power of Certified Endoscopy Technician 03/22/2016 12:00 AM Medical POA ACP-Power of Certified Endoscopy Technician 03/22/2016 12:00 AM General POA Latest Code Status on File Code Status Date Activated Date Inactivated Comments Full Code 03/11/2020 12:50 AM 03/12/2020 4:12 PM Full Code 06/09/2019 8:59 PM 06/11/2019 4:03 PM Latest Code Status on File Code Status Date Activated Date Inactivated Comments Full Code 03/08/2021 10:54 AM Full Code 03/11/2020 12:50 AM 03/12/2020 4:12 PM Latest Code Status on File Code Status Date Activated Date Inactivated Comments Full Code 06/08/2021 9:44 AM Full Code 03/08/2021 10:54 AM 03/08/2021 4:06 PM Advance Directive Response Recorded Date/ Time Living Will No October 02 2:53am Power of Certified Endoscopy Technician No October 02, 2021 2:53am Advance Directive Response Recorded Date/ Time Living Will Yes March 14, 2022 9:31am Power of Certified Endoscopy Technician Yes March 14 9:31am Advance Directive Response Recorded Date/ Time Name of Medical Power of Certified Endoscopy Technician Aysha Ocampo- Significant Other April 10, 2022 7:26a m Living Will Yes April 10, 2022 7:26am Power of Certified Endoscopy Technician Yes April 10 7:26am Advance Directive Response Recorded Date/ Time Name of Medical Power of Certified Endoscopy Technician Aysha Ocampo April 10, 2022 12:00pm Living Will Yes April 10, 2022 12:00pm Power of Certified Endoscopy Technician Yes April 10 12:00pm Advance Directive Response Recorded Date/ Time Name of Medical Power of Certified Endoscopy Technician Aysha Ocampo, SO August 06, 2022 2:27pm Living Will Yes August 06, 2 022 2:27pm Power of Certified Endoscopy Technician Yes August 06, 2022 2:27pm Advance Directive Response Recorded Date/ Time Living Will Yes August 06, 2 022 3:27pm Power of Certified Endoscopy Technician Yes August 06, 2022 3:27pm Advance Directive Response Recorded Date/ Time Name of Medical Power of Certified Endoscopy Technician elmer gomez January 11, 2023 3:45pm Living Will Yes January 11, 2023 3:45pm Power of Certified Endoscopy Technician Yes January 11 3:45pm Documents on File Type Date Recorded Patient Vp Transportation Expl anation Healthcare Power of Atty 07/31/2018 Living Will 07/31/2018 Healthcare Power of Atty 01/24/2018 Healthcare Power of Atty 09/24/2017 Living Will 09/24/2017 Documents on File Type Date Recorded Patient Vp Transportation Expl anation Living Will 04/11/2023 11:33 AM Healthcare Power of Atty 04/11/2023 11:33 AM Healthcare Power of Atty 04/11/2023 Living Will 04/11/2023 Healthcare Power of Atty 07/31/2018 Living Will 07/31/2018 Healthcare Power of Atty 01/24/2018 Healthcare Power of Atty 09/24/2017 Living Will 09/24/2017 Healthcare Power of Atty 04/11/2023 Healthcare Power of Atty Living Will 04/11/2023 Living Will Documents on File Type Date Recorded Patient Vp Transportation Expl anation Living Will 04/11/2023 11:33 AM Healthcare Power of Atty 04/11/2023 11:33 AM Healthcare Power of Atty 04/11/2023 Living Will 04/11/2023 Healthcare Power of Atty 07/31/2018 Living Will 07/31/2018 Healthcare Power of Atty 01/24/2018 Healthcare Power of Atty 09/24/2017 Living Will 09/24/2017 Healthcare Power of Atty 04/11/2023 Healthcare Power of Atty Living Will 04/11/2023 Living Will Healthcare Agents on File Name Relationship Healthcare Agent Relationshi p Communication Shanda Ocampo Friend Health Care Agent Elmer Bryan First Alternate Health Care Agent Date Activated Date Inactivated Comments 04/10/2024 6:21 AM Question Answer Comments Plan of Care: Code Status Discussion Completed Decision Maker: Patient Healthcare Agents on File Name Relationship Healthcare Agent Relationshi p Communication Shanda Ocampo Friend Health Care Agent Elmer Bryan First Alternate Health Care Agent Healthcare Agents on File Name Relationship Healthcare Agent Relationshi p Communication Shanda Ocampo Friend Health Care Agent Elmer Bryan First Alternate Health Care Agent Healthcare Agents on File Name Relationship Healthcare Agent Relationshi p Communication Shanda Ocampo Friend Health Care Agent Elmer Bryan First Alternate Health Care Agent Healthcare Agents on File Name Relationship Healthcare Agent Relationshi p Communication Shanda Ocampo Friend Health Care Agent Elmer Bryan First Alternate Health Care Agent Date Activated Date Inactivated Comments 04/10/2024 6:21 AM Question Answer Comments Plan of Care: Code Status Discussion Completed Decision Maker: Patient Healthcare Agents on File Name Relationship Healthcare Agent Relationshi p Communication Shanda Ocampo Friend Health Care Agent Elmer Bryan First Alternate Health Care Agent Healthcare Agents on File Name Relationship Healthcare Agent Relationshi p Communication Shanda Ocampo Friend Health Care Agent Elmer Pylechild First Alternate Health Care Agent Healthcare Agents on File Name Relationship Healthcare Agent Relationshi p Communication Shanda Ocampo Friend Health Care Agent Elmer Bryan First Alternate Health Care Agent Healthcare Agents on File Name Relationship Healthcare Agent Relationshi p Communication Shanda Ocampo Friend Health Care Agent Elmer Bryan First Alternate Health Care Agent Healthcare Agents on File Name Relationship Healthcare Agent Relationshi p Communication Shanda Ocampo Friend Health Care Agent Elmer Bryan First Alternate Health Care Agent Healthcare Agents on File Name Relationship Healthcare Agent Relationshi p Communication Shanda Ocampo Friend Health Care Agent Elmer Bryan First Alternate Health Care Agent Documents on File Type Date Recorded Patient Vp Transportation Expl anation Living Will 04/11/2023 11:33 AM Healthcare Power of Atty 04/11/2023 11:33 AM Healthcare Power of Atty 04/11/2023 Living Will 04/11/2023 Healthcare Power of Atty 07/31/2018 Living Will 07/31/2018 Advance Directives and Living Will 01/27/2018 Healthcare Power of Atty 01/24/2018 Healthcare Power of Atty 09/24/2017 Living Will 09/24/2017 Healthcare Power of Atty 04/11/2023 Healthcare Power of Atty Living Will 04/11/2023 Living Will Healthcare Agents on File Name Relationship Healthcare Agent Relationshi p Communication Shanda Ocampo Friend Health Care Agent Elmer Bryan First Alternate Health Care Agent Healthcare Agents on File Name Relationship Healthcare Agent Relationshi p Communication Shanda Ocampo Friend Health Care Agent Elmer Bryan First Alternate Health Care Agent Healthcare Agents on File Name Relationship Healthcare Agent Relationshi p Communication Shanda Ocampo Friend Health Care Agent Elmer Bryan First Alternate Health Care Agent Healthcare Agents on File Name Relationship Healthcare Agent Relationshi p Communication Shanda Ocampo Friend Health Care Agent Elmer Bryan First Alternate Health Care Agent Healthcare Agents on File Name Relationship Healthcare Agent Relationshi p Communication Shanda Ocampo Friend Health Care Agent Elmer Bryan First Alternate Health Care Agent Healthcare Agents on File Name Relationship Healthcare Agent Relationshi p Communication Shanda Ocampo Friend Health Care Agent Elmer Bryan First Alternate Health Care Agent Healthcare Agents on File Name Relationship Healthcare Agent Relationshi p Communication Shanda Ocampo Friend Health Care Agent Elmer Bryan First Alternate Health Care Agent Healthcare Agents on File Name Relationship Healthcare Agent Relationshi p Communication Shanda Ocampo Friend Health Care Agent Elmer Bryan First Alternate Health Care Agent Healthcare Agents on File Name Relationship Healthcare Agent Relationshi p Communication Shanda Ocampo Friend Health Care Agent Elmer Bryan First Alternate Health Care Agent Healthcare Agents on File Name Relationship Healthcare Agent Relationshi p Communication Shanda Ocampo Friend Health Care Agent Elmer Bryan First Alternate Health Care Agent Advance Directive Response Recorded Date/ Time Living Will Yes November 26, 2024 12:37pm Power of Certified Endoscopy Technician Yes November 26 12:37pm Name of Medical Power of Certified Endoscopy Technician shanda mercer November 26, 2024 12:37pm Advance Directive Response Recorded Date/ Time Living Will Yes November 26, 2024 2:32pm Power of Certified Endoscopy Technician Yes November 26 2:32pm Name of Medical Power of Certified Endoscopy Technician shanda mercer November 26, 2024 2:32pm Advance Directive Response Recorded Date/ Time Living Will Yes November 26, 2024 3:32pm Do you have a Healthcare Power of Certified Endoscopy Technician? Yes November 26, 2024 3:32pm Name of Medical Power of Certified Endoscopy Technician shanda mercer November 26, 2024 3:32pm Advance Directives on File Yes December 04, 2024 8:20am Living Will Yes December 04, 2024 8:20am Do you have a Healthcare Power of Certified Endoscopy Technician? Yes December 04, 2024 8:20am Advance Directive Response Recorded Date/ Time Living Will Yes November 26, 2024 3:32pm Do you have a Healthcare Power of Certified Endoscopy Technician? Yes November 26, 2024 3:32pm Name of Medical Power of Certified Endoscopy Technician shanda mercer November 26, 2024 3:32pm Advance Directives on File Yes December 04, 2024 8:20am Living Will Yes December 04, 2024 8:20am Do you have a Healthcare Power of Certified Endoscopy Technician? Yes December 04, 2024 8:20am Living Will No December 23, 2024 4:40pm Do you have a Healthcare Power of Certified Endoscopy Technician? No December 23, 2024 4:40pm Healthcare Agents on File Name Relationship Healthcare Agent Relationshi p Communication Shanda Ocampo Friend Health Care Agent Elmer Bryan First Alternate Health Care Agent Healthcare Agents on File Name Relationship Healthcare Agent Relationshi p Communication Shanda Ocampo Friend Health Care Agent Elmer Bryan First Alternate Health Care Agent Healthcare Agents on File Name Relationship Healthcare Agent Relationshi p Communication Shanda Ocampo Friend Health Care Agent Elmer Bryan First Alternate Health Care Agent Healthcare Agents on File Name [facility] Agent [facility] p Communication Shanda Benítez Health Care Agent Elmer Thrasher Alternate Health Care Agent Healthcare Agents on File Name [facility] Healthcare Agent [facility] p Communication Shanda Benítez Health Care Agent Elmer Bryan First [facility] Health Care Agent Advance Directive Response Recorded Date/ Time Living Will Yes January 11, 2023 3:45pm Do you have a Healthcare Power of Certified Endoscopy Technician? Yes January 11, 2023 3:45pm Living Will No December 23, 2024 4:40pm Do you have a Healthcare Power of Certified Endoscopy Technician? No December 23, 2024 4:40pm Healthcare Agents on File Name [facility] Healthcare Agent [facility] p Communication Shanda Benítez Health Care Agent Elmer Thrasher [facility] Health Care Agent Discharge Instructions * Instructions* Rachel Daigle RN - 06/02/2019 Shower with an antibacterial soap such as Dial or Safeguard. Please bring your [facility] Surgical Information folder on the day of surgery. Please luis the last dose taken (date and time ) on your Daily Medications List provided in your After Visit Summary. Please bring a photo ID and insurance information TAKE the following medications the morning of your surgery: RANITIDINE( ZANTAC) Basal Insulin: If you are using long acting insulin at bedtime, take units of LANTUS insulin the night before the surgery. You may take your prescription pain medications. You may take Tylenol (Acetaminophen) if needed forpain. No Motrin, Ibuprofen, or Advil 24 hours prior to surgery, or longer if instructed by your surgeon. No Aleve or Naprosyn 3 days prior to surgery, or longer if instructed by your surgeon. Do not take aspirin or aspirin containing products for 5 days before surgery. Follow all instructions given to you by Dr. TAN You will receive a reminder call the day before surgery with your Same Day Surgery arrival time. If you have specific questions, please call your surgeon. Please take the H elevator to the first floor- Same Day Surgery You may use the free upper tier parking at the main entrance on [address] [facility] [address], or the free parking in the [facility] parking deck documented in this encounter* Discharge Instr - Lab* Keisha Soto RN - 06/10/2019 5:54 PM EDT Your physician has ordered skilled home care services for you. Your home care will be provided by: [facility] [phone] * Additional Instructions* Bre Cortés MD - 06/10/2019 Pelvic Prolapse: What to Expect at Home Your Recovery You can expect to feel better and stronger each day, although you may get tired quickly and need pain medicine for a week or two. You may need about 4 to 6 weeks to fully recover from open surgery and 1 to 2 weeks to recover from laparoscopic surgery or vaginal surgery. It is important to avoid heavy lifting while you are recovering, so that your incision can heal. This care sheet gives you a general idea about how long it will take for you to recover. But each person recovers at a different pace. Follow the steps below to get better as quickly as possible. How can you care for yourself at home? Activity Rest when you feel tired. Getting enough sleep will help you recover. Try to walk each day. Start out by walking a little more than you did the day before. Bit by bit, increase the amount you walk. Walking boosts blood flow and helps prevent pneumonia and constipation. Avoid lifting anything that will make you strain which includes lifting a child, a vacuum, or grocery bags for about 1 week after laparoscopic surgery and 4 to 6 weeks after open surgery. Avoid strenuous activities, such as biking, jogging, weightlifting, and aerobic exercise, for 4 to 6 weeks after open surgery and 1 week after laparoscopic surgery. You may shower. Pat the incision dry when you are done. Do not take a bath for the first week aftersurgery or until your doctor tells you it is okay. You may have some light vaginal bleeding. Wear sanitary pads if needed. Do not douche or use tampons. Ask your doctor when you can drive again. You will probably need to take 2 to 4 weeks off work for open surgery and 1 week off for laparoscopic surgery or vaginal surgery. It depends on the type of work you do and how you feel. Your doctor will tell you when you can have sex again. Diet You can eat your normal diet. If your stomach is upset, try bland, low-fat foods like plain rice, broiled chicken, toast, and yogurt. Drink plenty of fluids (unless your doctor tells you not to). You may notice that your bowel movements are not regular right after your surgery. This is common. Try to avoid constipation and straining with bowel movements. You may want to take a fiber supplement every day. If you have not had a bowel movement after a couple of days, ask your doctor about taking a mild laxative. Medicines Your doctor will tell you if and when you can restart your medicines. He or she will also give you instructions about taking any new medicines. If you take blood thinners, such as warfarin (Coumadin), clopidogrel (Plavix), or aspirin, be sure to talk to your doctor. He or she will tell you if and when to start taking those medicines again. Make sure that you understand exactly what your doctor wants you to do. Be safe with medicines. Take pain medicines exactly as directed. ? If the doctor gave you a prescription medicine for pain, take it as prescribed. ? If you are not taking a prescription pain medicine, ask your doctor if you can take an yyke-nvr-iatlins medicine. If you think your pain medicine is making you sick to your stomach: ? Take your medicine after meals (unless your doctor tells you not to). ? Ask your doctor for a different pain medicine. If your doctor prescribed antibiotics, take them as directed. Do not stop taking them just because you feel better. You need to take the full course of antibiotics. Incision care If you have strips of tape on the cut (incision) the doctor made, leave the tape on for a week or until it falls off. Wash the area daily with warm, soapy water and pat it dry. Keep the area clean and dry. You may cover it with a gauze bandage if it weeps or rubs against clothing. Change the bandage every day. Other instructions If you go home with a urinary catheter, follow your doctor's instructions on catheter care. Wear loose, comfortable clothing and avoid anything that puts pressure on your belly, such as a girdle, for a few weeks. Your doctor may recommend pelvic floor (Kegel) exercises, which tighten and strengthen pelvic muscles, once you have completely healed. To do Kegel exercises: ? Squeeze the same muscles you would use to stop your urine. Your belly and thighs should not move. ? Hold the squeeze for 3 seconds, and then relax for 3 seconds. ? Start with 3 seconds. Then add 1 second each week until you are able to squeeze for 10 seconds. ? Repeat the exercise 10 to 15 times for each session. Do three or more sessions each day. Follow-up care is a lepe part of your treatment and safety. Be sure to make and go to all appointments, and call your doctor if you are having problems. It's also a good idea to know your test resultsand keep a list of the medicines you take. When should you call for help? Call 911 anytime you think you may need emergency care. For example, call if: You passed out (lost consciousness). You have chest pain, are short of breath, or cough up blood. Call your doctor now or seek immediate medical care if: You have bright red vaginal bleeding that soaks one or more pads in an hour, or you have large clots. You are sick to your stomach or cannot drink fluids. You have pain that does not get better after you take pain medicine. You have loose stitches, or your incision comes open. Bright red blood has soaked through the bandage over your incision. You have vaginal discharge that has increased in amount or smells bad. You have signs of infection, such as: ? Increased pain, swelling, warmth, or redness. ? Red streaks leading from the incision. ? Pus draining from the incision. ? A fever. You cannot pass stools or gas. You have signs of a blood clot in your leg (called deep vein thrombosis), such as: ? Pain in your calf, back of knee, thigh, or groin. ? Redness and swelling in your leg. Watch closely for any changes in your health, and be sure to contact your doctor if you have any problems. Where can you learn more? Go to [email or web address] and sign in to your [employer] account. Enter J651 in the Search Health Information box to learn more about Pelvic Prolapse: What to Expect at Home. If you do not have an account, please click on the Sign Up Now link. Current as of: November 11, 2018 Content Version: 12.1 9937-2162 [employer]. Care instructions adapted under license by [employer]. If youhave questions about a medical condition or this instruction, always ask your healthcare professional. [employer] disclaims any warranty or liability for your use of this information. documented in this encounter* Discharge Instr - Activity* Zina Mcpherson APRN - CNP - 03/12/2020 11:06 AM EDT No working or driving until follow up with Trauma Clinic * Discharge Instr - Diet* Zina Mcpherson APRN - CNP - 03/12/2020 11:06 AM EDT ? Good nutrition is important when healing from an illness, injury, or surgery. Follow any nutrition recommendations given to you during your hospital stay. ? If you were given an oral nutrition supplement while in the hospital, continue to take this supplement at home. You can take it with meals, in-between meals, and/or before bedtime. These supplements can be purchased at most local grocery stores, pharmacies, and [employer]. ? If you have any questions about your diet or nutrition, call the hospital and ask for the dietitian. Carb control * Additional Instructions* Zina Mcpherson APRN - CNP - 03/12/2020 You have been diagnosed with a concussion. Upon discharge you can expect post- concussion symptoms. These include but are not limited to: - Thinking/remembering - difficulty thinking clearly, remembering new info, and concentrating - Physical - headache, blurry vision, dizziness, sensitivity to light and noises, feeling tired, balance problems - Emotional, mood - irritability, sadness, emotional, nervous or anxiety - Sleep - sleeping more than usual, sleep less then usual, trouble falling asleep To feel better: - Get plenty of sleep at night, and take it easy during the day - Avoid physically demanding activities or those that require a lot of concentration - Do not drive, operate heavy equipment until cleared by your doctor - Do not drink alcohol While taking narcotic medications be sure to: Not operate heavy machinery Do not drive while taking narcotic medication Return to the emergency department if: You are very drowsy. Your speech is slurred. You have trouble thinking, remembering things, or focusing. Contact your healthcare provider if: You want help or information on how to stop using or abusing narcotics. Follow up with your healthcare provider as directed: Write down your questions so you remember to ask them during your visits. Narcotic intoxication usually lasts for several hours. You may have the following during or after you use narcotics: Behavior or mood changes, such as a great feeling followed by the feeling that you do not care about anyone or anything Trouble thinking, remembering things, or focusing Small pupils Feeling very drowsy Slurred speech Narcotic withdrawal occurs if you stop using narcotics after using them heavily over a period of time. Signs and symptoms may begin within minutes or days and continue for days or even months: Depression and anxiety Nausea or vomiting Muscle aches Watery eyes or runny nose Large pupils Sweating or goosebumps on your skin Diarrhea Fever Trouble sleeping documented in this encounter History of Present Illness * Rachel Daigle RN - 06/02/2019 6:16 PM EDT Labs obtained on first attempt with 23gauge needle at [facility]. Patient tolerated well, site benign. documented in this encounter* Aria Redmond DTR - 06/11/2019 8:31 AM EDT Nutrition rescreen completed. Chart reviewed. Patient to be monitored and followed by the diet vascular ultrasound technician. * Bre Cortés MD - 06/11/2019 6:27 AM EDT TRAFFIC SAFETY ADMINISTRATOR Progress Note Date: 06/11/2019 Time: 6:28 AM Tristen Gomez 68 y.o. female , POD # 2 s/p RSCP,BSO,AK,Sling,cysto Patient seen and examined. She reports pelvic spasms and nausea. States has felt nauseous overnight, but is not having vomiting and was able to tolerate dinner overnight. Reports pain feels like gas pain. Patient is tolerating oral intake. She reports minimal vaginal spotting. She is ambulating without difficulty. She is passing flatus. She denies Fever/Chills, Chest Pain, SOB, N/V. Vitals: Vitals: 06/10/19 1658 06/10/19 2127 06/11/19 0032 06/11/19 0438 BP: (!) 117/57 (!) 100/51 117/60 128/67 Pulse: 79 92 69 78 Resp: 18 20 18 18 Temp: 97.9 F (36.6 C) 98.2 F (36.8 C) 97.6 F (36.4 C) 97.4 F (36.3 C) TempSrc: Temporal Oral Oral Temporal SpO2: 96% 92% 99% 96% Weight: Height: Intake/Output: Last Shift: @[id number]@ Current Shift: I/O this shift: In: 800 [P.O.:800] Out: 1450 [Urine:1450] Physical Exam: Gen: NAD, alert and cooperative HEENT: Normocephalic, atraumatic, EOMI, MMM Resp: CTABL, no WRR Card: RRR, no murmur Abd: soft, NT/ND, no rebound, no guarding. Present BS Incisions: Port site incisions C/D/I with dermabond in place Ext: No LE edema, no calf tenderness or swelling Medications: Current Facility-Administered Medications Medication Dose Route Frequency Provider Last Rate Last Dose opium-belladonna (B&O SUPPRETTES) 16.2-60 MG suppository 60 mg 60 mg Rectal Once Bre Cortés MD insulin lispro (HUMALOG) injection vial 0-12 Units 0-12 Units Subcutaneous TID WC Bre Cortés MD 2 Units at 06/10/191810 insulin lispro (HUMALOG) injection vial 0-6 Units 0-6 Units Subcutaneous Nightly Bre Cortés MD 2 Units at 06/10/192123 calcium carbonate (TUMS) chewable tablet 1,000 mg 1,000 mg Oral TID PRN Bre Cortés MD simethicone (MYLICON) chewable tablet 80 mg 80 mg Oral Q6H Bre Cortés MD 80 mg at 06/11/19 0554 insulin glargine (LANTUS) injection vial 11 Units 11 Units Subcutaneous Nightly Bre Cortés MD 11 Units at 06/10/193 acetaminophen (TYLENOL) tablet 650 mg 650 mg Oral Q4H PRN Bre Cortés MD ondansetron (ZOFRAN) injection 4 mg 4 mg Intravenous Q8H PRN Bre Cortés MD 4 mg at 06/11/19 0024 ibuprofen (ADVIL;MOTRIN) tablet 600 mg 600 mg Oral Q6H Bre Cortés MD 600 mg at 06/11/19 0421 HYDROcodone-acetaminophen (NORCO) 5-325 MG per tablet 1 tablet 1 tablet Oral Q4H BELINDA Cortés MD 1 tablet at 06/10/19 1049 Or HYDROcodone-acetaminophen (NORCO) 5-325 MG per tablet 2 tablet 2 tablet Oral Q4H BELINDA Cortés MD 2 tablet at 06/11/19 0425 glucose (GLUTOSE) 40 % oral gel 15 g 15 g Oral BELINDA Cortés MD dextrose 50 % IV solution 12.5 g Intravenous BELINDA Cortés MD glucagon (rDNA) injection 1 mg 1 mg Intramuscular BELINDA Cortés MD dextrose 5 % solution 100 mL/hr Intravenous BELINDA Cortés MD Diagnostics: No results found. Labs: Admission on 06/09/2019 Component Date Value Ref Range Status POC Glucose 06/09/2019 127* 70 - 100 mg/dL Final Comment: Test performed by glucose meter. Results may be 10%-15% lower than serum/plasma values. (CLIA ID [id number]) POC Glucose 06/09/2019 206* 70 - 100 mg/dL Final Comment: Test performed by glucose meter. Results may be 10%-15% lower than serum/plasma values. (CLIA ID [id number]) Hemoglobin 06/10/2019 11.9 11.7 - 16.0 g/dL Final Hematocrit 06/10/2019 35.9 35.0 - 47.0 % Final POC Glucose 06/09/2019 229* 70 - 100 mg/dL Final Comment: Test performed by glucose meter. Results may be 10%-15% lower than serum/plasma values. (CLIA ID [id number]) POC Glucose 06/10/2019 183* 70 - 100 mg/dL Final Comment: Test performed by glucose meter. Results may be 10%-15% lower than serum/plasma values. (CLIA ID [id number]) POC Glucose 06/10/2019 198* 70 - 100 mg/dL Final Comment: Test performed by glucose meter. Results may be 10%-15% lower than serum/plasma values. (CLIA ID [id number]) POC Glucose 06/10/2019 170* 70 - 100 mg/dL Final Comment: Test performed by glucose meter. Results may be 10%-15% lower than serum/plasma values. (CLIA ID [id number]) POC Glucose 06/10/2019 222* 70 - 100 mg/dL Final Comment: Test performed by glucose meter. Results may be 10%-15% lower than serum/plasma values. (CLIA ID [id number]) Assessment/Plan: Tristen Gomez 68 y.o. female , POD # 2 s/p RSCP,BSO,AK,Sling,cysto 1. Postoperative state - Pt doing well - Reports pelvic spasms this am. Abdominal exam is benign. B&O suppository ordered. Suspect tapblock starting to wear off and experiencing gas pains - Tolerating PO, but reports nausea overnight - Packing out yesterday. Failed VTx2 - Hb 11.9 - baseline 13.2 - Vital signs stable - Passing gas - Ambulating without difficulty 2. Diabetes - On lantus 11u at night - BGTs 170-222 - Medium dose SSI ordered BRE CORTÉS MD 06/11/2019, 6:28 AM Associated attestation - Darnell Tan MD - 06/11/2019 8:34 AM EDT Patient seen and examined. Agree with the above. Pt was resting comfortably on my entry. Pt stated vaginal bleeding improved. Only spotting today She denies fever/chills, chest pain, SOB, c/o nausea, no vomiting. Pain is controlled with medications. Patient is tolerating oral intake. She did pass flatus, but noBM yet. Vitals stable and wnl. Physical Exam: Gen: NAD, alert and cooperative HEENT: Normocephalic, atraumatic, EOMI, MMM Resp: CTABL, no WRR Card: RRR, no murmur Abd: soft, appropriate tender /ND, no rebound, no guarding. Present BS. Incision c/d/i, no erythemaor induration. Ext: No LE edema, no calf tenderness or swelling A/P: 1. POD#2 - doing well. 2. Encourage ambulation, PO intake, and IS use. 3. Closely monitor vb and vitals. Cbc if continues to bleed vaginally and/or abnormal vitals. 4. Likely home today with Best. 5. VT next Saturday. * Griselda Oneal DO - 06/11/2019 5:14 AM EDT Called to bedside due to patient complaining of abdominal pain. States it happened earlier tonight and improved with zofran but has returned since 299 this morning. Describes it as intermittent epigastric pain along with some nausea. No emesis. VSS. Abdomen is soft, nondistended with no rebound or rigidity. +BSx4. Patient received ibuprofen at 420. Will give a dose of phenergan. She is also duefor simethicone soon. Will monitor for improvement of symptoms and for voiding trial. Plan discussed with Dr. Aguirre. *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 fusion History of DVT (deep vein thrombosis) Bilateral lower extremity edema Chief Complaint 5 M FU LAMINECTOMY AND FUSION OF THE LUMBAR SPINE LAMINECTOMY LAMINECTOMY LAMINECTOMY LAMINECTOMY LAMINECTOMY LAMINECTOMY AND FUSION OF THE LUMBAR SPINE FU lower leg swelling 8 weeks ELVATED D DIMER/ XRAY L SHOULDER PAIN OSTEOPOROSIS ON PELVIC X-RAY LAMINECTOMY RX HERE Reason for Visit Osteopenia Carpal tunnel syndrome, left Cubital tunnel syndrome on left Debility Impaired gait and mobility Status post laminectomy with spinal fusion Low back pain Dysuria Intertriginous dermatitis associated with moisture Status post laminectomy with spinal fusion Status post laminectomy with spinal fusion History of DVT (deep vein thrombosis) Bilateral lower extremity edema Chief Complaint lower leg swelling 8 weeks ELVATED D DIMER/ XRAY L SHOULDER PAIN OSTEOPOROSIS ON PELVIC X-RAY 3 M FU 6 M FU Urinary tract infection LAMINECTOMY RX HERE Reason for Visit Status post laminect andrei with spinal fusion History of DVT (deep vein thrombosis) Bilateral lower extremity edema Breast cancer screening Status post laminectomy with spinal fusion Hypertension Diabetes Hypertension Urinary tract infection Chief Complaint 3 M FU 6 M FU Urinary tract infection LAMINECTOMY RX HERE 6 M FU left hand pain Reason for Visit Breast cancer screen ing Status post laminectomy with spinal fusion Hypertension Diabetes Hypertension Urinary tract infection Trigger finger, left middle finger Chief Complaint 3 M FU 6 M FU Urinary tract infection 6 M FU left hand pain LAMINECTOMY RX HERE Reason for Visit Breast cancer screen ing Status post laminectomy with spinal fusion Hypertension Diabetes Hypertension Urinary tract infection Trigger finger, left middle finger Chief Complaint Admit Date chest pain November 26, 2024 12:4 6pm Reason for Visit Admit Date Chest pain November 26, 2024 12:[address] elevation (STEMI) myocardial infarcti on November 26, 2024 12:46pm Chief Complaint Admit Date chest pain November 26, 2024 2:22 pm chest pain November 26, 2024 2:35 pm chest pain November 27, 2024 10:0 5am chest pain November 27, 2024 11:1 8am chest pain November 28, 2024 10:5 0am Reason for Visit Admit Date Chest pain November 26, 2024 2:22 pm Coronary artery disease November 26, 2024 2:22pm Grade I diastolic dysfunction November 26, 2024 2:22pm ST elevation (STEMI) myocardial infarcti on November 26, 2024 2:22pm ST elevation (STEMI) myocard ial infarction involving left anterior descendi November 26, 2024 2:22pm Hypertension November 26, 2024 2:22 pm Chief Complaint Admit Date chest pain November 26, 2024 2:22 pm chest pain November 26, 2024 2:35 pm chest pain November 27, 2024 10:0 5am chest pain November 27, 2024 11:1 8am chest pain November 28, 2024 10:5 0am chest pain November 28, 2024 11:3 6am AR STEMI <12 months December 04, 2024 7:5 3am AR STEMI <12 months December 14, 2024 11: 15am Reason for Visit Admit Date Chest pain November 26, 2024 2:22 pm Coronary artery disease November 26, 2024 2:22pm Grade I diastolic dysfunction November 26, 2024 2:22pm Hypertension November 26, 2024 2:[address] elevation (STEMI) myocardial infarcti on November 26, 2024 2:22pm ST elevation (STEMI) myocard ial infarction involving left anterior descendi November 26, 2024 2:22pm Chief Complaint Admit Date chest pain November 26, 2024 2:22 pm chest pain November 26, 2024 2:35 pm chest pain November 27, 2024 10:0 5am chest pain November 27, 2024 11:1 8am chest pain November 28, 2024 10:5 0am chest pain November 28, 2024 11:3 6am AR STEMI <12 months December 04, 2024 7:5 3am AR STEMI <12 months December 21, 2024 11: 15am Chief Complaint Admit Date chest pain November 26, 2024 2:22 pm chest pain November 26, 2024 2:35 pm chest pain November 27, 2024 10:0 5am chest pain November 27, 2024 11:1 8am chest pain November 28, 2024 10:5 0am chest pain November 28, 2024 11:3 6am AR STEMI <12 months December 04, 2024 7:5 3am AR STEMI <12 months December 21, 2024 11: 15am AR STEMI <12 months December 23, 2024 7:47 am RLE SWELLING December 23, 2024 3:05 pm Chief Complaint Admit Date chest pain November 26, 2024 2:22 pm chest pain November 26, 2024 2:35 pm chest pain November 27, 2024 10:0 5am chest pain November 27, 2024 11:1 8am chest pain November 28, 2024 10:5 0am chest pain November 28, 2024 11:3 6am AR STEMI <12 months December 04, 2024 7:5 3am AR STEMI <12 months December 21, 2024 11: 15am RLE SWELLING December 23, 2024 3:05 pm AR STEMI <12 months January 20, 2025 11: 15am AR STEMI <12 months February 19, 2025 11:15 am Chief Complaint Admit Date chest pain November 26, 2024 2:22 pm chest pain November 26, 2024 2:35 pm chest pain November 27, 2024 10:0 5am chest pain November 27, 2024 11:1 8am chest pain November 28, 2024 10:5 0am chest pain November 28, 2024 11:3 6am AR STEMI <12 months December 04, 2024 7:5 3am AR STEMI <12 months December 21, 2024 11: 15am RLE SWELLING December 23, 2024 3:05 pm AR STEMI <12 months January 20, 2025 11: 15am AR STEMI <12 months February 19, 2025 11:15 am AR STEMI <12 months March 22, 2025 11:1 5am Chief Complaint Admit Date AR STEMI <12 months December 21, 2024 11: 15am RLE SWELLING December 23, 2024 3:05 pm AR STEMI <12 months January 20, 2025 11: 15am AR STEMI <12 months February 19, 2025 11:15 am AR STEMI <12 months March 22, 2025 11:1 5am AR STEMI <12 months March 24, 2025 8:22a m FRIEND AND FAMILY April 01, 2025 7:51 am 1 Y FU April 05, 2025 10:1 3am Reason for Visit Admit Date Right knee pain April 05, 2025 10:1 3am Low back pain April 05, 2025 10:1 3am Reason for Referral Specialty Diagnoses / Procedures Referred By Contac t Referred To Contact Radiology Diagnoses Chronic low back pain without sciatica, unspecified back pain laterality Procedures MR lumbar spine wo IV contrast Yanelis Ayala, JOSE [address] [place] [address] Referral ID Status Reason Start Date Expiration Date Visits Requested Visits Authorized [id number] Pending Review Perform Procedure 01/03/2024 01/02/2025 1 1 Specialty Diagnoses / Procedures Referred By Contac t Referred To Contact Diagnoses Lumbar radiculopathy Procedures [place] 12 [place] [id number] [facility] Department [place] [address] Referral ID Status Reason Start Date Expiration Date V isits Requested Visits Authorized [id number] Authorized 02/12/2024 02/11/2025 1 1 Specialty Diagnoses / Procedures Referred By Contac t Referred To Contact Radiology Diagnoses Screening mammogram for breast cancer Procedures BI mammo bilateral screening [place] [address] [facility] [address] [place] [address] Referral ID Status Reason Start Date Expiration Date Visits Requested Visits Authorized [id number] Authorized Perform Procedure 02/25/2024 02/24/2025 1 1 Specialty Diagnoses / Procedures Referred By Contac t Referred To Contact Cardiology Diagnoses Tachycardia Procedures Holter or Event 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 DATE CREATED AUTHOR AUTHOR'S ORGANIZ ATION 06/13/2021 [facility] DATE CREATED AUTHOR AUTHOR'S ORGANIZ ATION 07/01/2021 [facility] DATE CREATED AUTHOR AUTHOR'S ORGANIZ ATION 03/05/2023 [facility] DATE CREATED AUTHOR AUTHOR'S ORGANIZ ATION 05/18/2023 [facility] DATE CREATED AUTHOR AUTHOR'S ORGANIZ ATION 05/18/2023 [employer] DATE CREATED AUTHOR AUTHOR'S ORGANIZ ATION 07/22/2023 [facility] DATE CREATED AUTHOR AUTHOR'S ORGANIZ ATION 10/21/2023 [facility] DATE CREATED AUTHOR AUTHOR'S ORGANIZ ATION 12/18/2024 [facility] DATE CREATED AUTHOR AUTHOR'S ORGANIZ ATION 01/20/2025 [facility] DATE CREATED AUTHOR AUTHOR'S ORGANIZ ATION 01/31/2025 [facility] DATE CREATED AUTHOR AUTHOR'S ORGANIZ ATION 02/20/2025 [facility] DATE CREATED AUTHOR AUTHOR'S ORGANIZ ATION 03/06/2025 [facility] DATE CREATED AUTHOR AUTHOR'S ORGANIZ ATION 03/15/2025 [facility] DATE CREATED AUTHOR AUTHOR'S ORGANIZ ATION 04/02/2025 [facility] DATE CREATED AUTHOR AUTHOR'S ORGANIZ ATION 04/03/2025 [facility] DATE CREATED AUTHOR AUTHOR'S ORGANIZ ATION 04/07/2025 [facility] Ordered Prescriptions (unrec ognized section and content) Prescription Sig Dispensed Refills Start Date End Da te omeprazole (PRILOSEC) 20 MG delayed release capsule Take 1 capsule by mouth daily 90 capsule 0 06/08/2021 09/06/2021 Goals (unrecognized section and content) Goals may be documented in a n alternate sectionGoals may be documented in an alternate sectionGoals may be documented in an alternate sectionGoals may be documented in an alternate sectionGoals may be documented in an alternate sectionGoals may be documented in an alternate sectionGoals may be documented in an alternate sectionGoals may be documented in an alternate sectionGoals may be documented in an alternate section <item> Privacy Markings (unrecogniz ed section and content) Section Author: Jessica Rey PROHIBITION ON REDISCLOSURE OF CONFIDENTIAL INFORMATION This notice accompanies a disclosure of information concerning a client made to you with the consent of such client. Care Teams (unrecognized sec tion and content) Team Status: Active Member Role Status Dates Dr. Tess Ontiveros , Primary Care Provider Ac tive Team Status: Inactive Member Role Status Dates Dr. Aires Hill MD Primary Care Provider Active Start: November 26, 2024 End: November 28, 2024 Dr. Saurav Arellano MD Referring Provider Active Start: November 26, 2024 End: November 28, 2024 Dr. Saurav Arellano MD Other Provider Active Star t: November 26, 2024 End: November 28, 2024 Dr. Matt Jose , Emergency Provider Active Start: November 26, 2024 End: November 28, 2024 Dr. Tahira De MD Admit Provider Active St art: November 26, 2024 End: November 28, 2024 Dr. Tahira De MD Attending Provider Active Start: November 26, 2024 End: November 28, 2024 Dr. Sanchez Mendez , Other Provider Active Start: November 26, 2024 End: November 28, 2024 Dr. Sanchez Mendez , Other Provider Active Start: November 26, 2024 Team Status: Active Member Role Status Dates Dr. Aries Hill MD Primary Care Provider Active Start: November 26, 2024 Dr. Saurav Arellano MD Attending Provider Active Start: November 26, 2024 Dr. Saurav Arellano MD Referring Provider Active Start: November 26, 2024 Dr. Saurav Arellano MD Other Provider Active Star t: November 26, 2024 Dr. Matt Jose DO Emergency Provider Active Start: November 26, 2024 Dr. Sanchez Mendez DO Other Provider Active Start: November 26, 2024 Team Status: Active Member Role Status Dates Dr. Aries Hill MD Primary Care Provider Active Start: November 27, 2024 Dr. Saurav Arellano MD Other Provider Active Star t: November 27, 2024 Dr. Matt Jose DO Emergency Provider Active Start: November 27, 2024 Dr. Tahira De MD Admit Provider Active St art: November 27, 2024 Dr. Tahira De MD Attending Provider Active Start: November 27, 2024 Dr. Tahira De MD Other Provider Active St art: November 27, 2024 Dr. Sanchez Mendez DO Other Provider Active Start: November 27, 2024 Team Status: Active Member Role Status Dates Dr. Aries Hill MD Primary Care Provider Active Start: November 27, 2024 Dr. Saurav Arellano MD Attending Provider Active Start: November 27, 2024 Dr. Saurav Arellano MD Referring Provider Active Start: November 27, 2024 Dr. Saurav Arellano MD Other Provider Active Star t: November 27, 2024 Dr. Matt Jose DO Emergency Provider Active Start: November 27, 2024 Dr. Tahira De MD Admit Provider Active St art: November 27, 2024 Dr. Tahira De MD Other Provider Active St art: November 27, 2024 Dr. Sanchez Mendez DO Other Provider Active Start: November 27, 2024 Team Status: Active Member Role Status Dates Dr. Aries Hill MD Primary Care Provider Active Start: November 28, 2024 Dr. Saurav Arellano MD Attending Provider Active Start: November 28, 2024 Dr. Saurav Arelalno MD Referring Provider Active Start: November 28, 2024 Dr. Saurav Arellano MD Other Provider Active Star t: November 28, 2024 Dr. Matt Jose DO Emergency Provider Active Start: November 28, 2024 Dr. Tahira De MD Admit Provider Active St art: November 28, 2024 Dr. Tahira De MD Other Provider Active St art: November 28, 2024 Dr. Sanchez Mendez DO Other Provider Active Start: November 28, 2024 Team Status: Active Member Role Status Dates Dr. Aries Hill MD Primary Care Provider Active Start: November 28, 2024 Dr. Saurav Arellano MD Other Provider Active Star t: November 28, 2024 Dr. Matt Jose DO Emergency Provider Active Start: November 28, 2024 Dr. Tahira De MD Admit Provider Active St art: November 28, 2024 Dr. Tahira De MD Attending Provider Active Start: November 28, 2024 Dr. Tahira De MD Other Provider Active St art: November 28, 2024 Dr. Sanchez Mendez DO Other Provider Active Start: November 28, 2024 Team Status: Inactive Member Role Status Dates Dr. Saurav Arellano MD Attending Provider Active Start: December 04, 2024 End: December 04, 2024 Dr. Saurav Arellano MD Referring Provider Active Start: December 04, 2024 End: December 04, 2024 Dr. Tess Ontiveros DO Primary Care Provider Ac tive Start: December 04, 2024 End: December 04, 2024 Team Status: Active Member Role Status Dates Dr. Tess Ontiveros DO Primary Care Provider Ac tive Start: December 14, 2024 Dr. Saurav Arellano MD Attending Provider Active Start: December 14, 2024 Dr. Saurav Arellano MD Referring Provider Active Start: December 14, 2024 Team Status: Active Member Role Status Dates Dr. Aries Hill MD Primary Care Provider Active Team Status: Active Member Role Status Dates Dr. Aries Hill MD Primary Care Provider Active Start: November 27, 2024 Dr. Saurav Arellano MD Referring Provider Active Start: November 27, 2024 Dr. Saurav Arellano MD Other Provider Active Star t: November 27, 2024 Dr. Matt Jose DO Emergency Provider Active Start: November 27, 2024 Dr. Tahira De MD Admit Provider Active St art: November 27, 2024 Dr. Tahira De MD Attending Provider Active Start: November 27, 2024 Dr. Tahira De MD Other Provider Active St art: November 27, 2024 Dr. Sanchez Mendez DO Other Provider Active Start: November 27, 2024 Team Status: Active Member Role Status Dates Dr. Luis Starks MD Family Provider Active Dr. Aries Hill MD Primary Care Provider Active Team Status: Inactive Member Role Status Dates Dr. Aries Hill MD Primary Care Provider, Refer ring Provider Active SUNNY Huddleston Attending Provider Active Team Status: Inactive Member Role Status Dates Dr. Aries Hill MD Primary Care P rovider, Attending Provider, Referring Provider Active Team Status: Inactive Member Role Status Dates Dr. Aries Hill MD Primary Care Provider, Refer ring Provider Active Etelvina Diaz PA Attending Provider Active Team Status: Active Member Role Status Dates Dr. Aries Hill MD Primary Care Provider Active Dr. Sunday Meehan MD Attending Provider Active Etelvina Diaz PA Referring Provider Active Team Status: Inactive Member Role Status Dates Dr. Aries Hill MD Primary Care Provider, Refer ring Provider Active Sparkle HU, PA Attending Provider Active Team Status: Inactive Member Role Status Dates Dr. Aries Hill MD Primary Care Provider Active Dr. Antonio Brooks MD Attending Provider, Referring Provider Active Team Status: Active Member Role Status Dates Dr. Aries Hill MD Primary Care P rovider, Attending Provider Active Dr. Tra Medrano DO Referring Provider Act sujit Team Status: Inactive Member Role Status Dates Dr. Aries Hill MD Primary Care Provider Active Etelvina Diaz PA Attending Provider, Referring Pro vider Active Team Status: Inactive Member Role Status Dates Dr. Aries Hill MD Primary Care Provider Active Etelvina Diaz PA Attending Provider, Referring Pro vider Active Dr. Antonio Brooks MD Other Provider Active Team Status: Inactive Member Role Status Dates Dr. Aries Hill MD Primary Care Provider Active Sparkle Vale PA, PA Attending Provider, Referr ing Provider Active Team Status: Inactive Member Role Status Dates Dr. Aries Hill MD Primary Care Provider, Refer ring Provider Active Dr. Antonio Brooks MD Attending Provider Active Team Status: Inactive Member Role Status Dates Dr. Aries Hill MD Primary Care Provider Active Dr. Keturah Diego MD Referring Provider, Emergency Provider Active Team Status: Inactive Member Role Status Dates Dr. Aries Hill MD Primary Care P kael, Attending Provider Active Dr. Tra Medrano DO Referring Provider Act sujit Team Status: Inactive Member Role Status Dates Dr. Aries Hill MD Primary Care Provider Active Dr. Keturah Diego MD Attending Provid er, Referring Provider, Emergency Provider Active Roll Edge Stitcher Hand Relationship Specialty Start Date End Date Prince Vickers DO [address] [facility], [facility] [address] [place] [address] PCP - General Family Medicine 04/09/23 Roll Edge Stitcher Hand Relationship Specialty Start Date End Date Prince Vickers DO [address] [facility], [facility] [address] [place] [address] PCP - General Family Medicine 04/09/23 Roll Edge Stitcher Hand Relationship Specialty Start Date End Date [facility] [address] [place] [address] PCP - General 05/21/23 Roll Edge Stitcher Hand Relationship Specialty Start Date End Date [facility], [facility] [address] [place] [address] PCP - General 05/21/23 Roll Edge Stitcher Hand Relationship Specialty Start Date End Date Tess Ontiveros DO [address] [facility], [address] [place] [address] PCP - General Family Medicine 08/21/23 Luis Alvarez DO [address] Rah Alvarez MD [address] [place], [place] [address] Referring Physician Otolaryngology 08/21/23 Jodi Awan MD PhD [facility] [address] [place] [address] Consulting Physician Cardiology 08/21/23 [place] [address] [place] Department of Orthopedics [place], [place] [id number] Consulting Physician Orthopaedic Surgery 08/21/23 Lambert Caraballo MD [address] [place] [address] Endocrinology [facility] [place] [address] Referring Physician Endocrinology 08/21/23 Aysha Lang Referring Physician Podiatry 08/21/23 Roll Edge Stitcher Hand Relationship Specialty Start Date End Date Tess Ontiveros DO [address] [facility], [address] [place] [address] PCP - General Family Medicine 08/21/23 Luis Alvarez DO 195 Rah Alvarez MD [facility] [address] [place] [address] Referring Physician Otolaryngology 08/21/23 Jodi Awan MD PhD [facility] [address] [place] [address] Consulting Physician Cardiology 08/21/23 [place] [address] [place] Department of Orthopedics [place], [place] [id number] Consulting Physician Orthopaedic Surgery 08/21/23 Lambert Caraballo MD [facility] Endocrinology [place], [place] [id number] Referring Physician Endocrinology 08/21/23 Aysha Lang Referring Physician Podiatry 08/21/23 Roll Edge Stitcher Hand Relationship Specialty Start Date End Date Tess Ontiveros DO [address] [facility], [address] [place] [address] PCP - General Family Medicine 08/21/23 Luis Alvarez DO [facility] Rah Luis Alvarez MD [address] [address] Referring Physician Otolaryngology 08/21/23 Jodi Awan MD PhD [address] [place] [address] [address] Consulting Physician Cardiology 08/21/23 [place] [address] [facility] Department [place] [address] Consulting Physician Orthopaedic Surgery 08/21/23 Lambert Caraballo MD 2325 [facility] Endocrinology [place], [place] [phone] Referring Physician Endocrinology 08/21/23 Aysha Lang Referring Physician Podiatry 08/21/23 Roll Edge Stitcher Hand Relationship Specialty Start Date End Date Saul [facility] [address] [place] [address] PCP - General 05/21/23 Roll Edge Stitcher Hand Relationship Specialty Start Date End Date Tess Ontiveros DO [address] [facility], [facility] [address] [place], [place] [address] PCP - General Family Medicine 08/21/23 Luis Alvarez DO 195 Rah Alvarez MD [facility] [address] [place] [address] Referring Physician Otolaryngology 08/21/23 Jodi Awan MD PhD [address] [place] [address] Consulting Physician Cardiology 08/21/23 [place] [address] [place] [facility] Department of Orthopedics [place] [phone] Consulting Physician Orthopaedic Surgery 08/21/23 Lambert Caraballo MD [address] [facility], [address] [place] [address] Referring Physician Endocrinology 08/21/23 Aysha Lang Referring Physician Podiatry 08/21/23 Roll Edge Stitcher Hand Relationship Specialty Start Date End Date Tess Ontiveros DO [address] [facility], [address] [place] [address] PCP - General Family Medicine 08/21/23 Luis Alvarez DO Matias Alvarez MD [facility] [address] [place] [address] Referring Physician Otolaryngology 08/21/23 Jodi Awan MD PhD [facility] [address] [place] [address] Consulting Physician Cardiology 08/21/23 [place] [address] [address] [facility] Department [place] [address] Consulting Physician Orthopaedic Surgery 08/21/23 Lambert Caraballo MD 5[address] [facility], [address] [place] [address] Referring Physician Endocrinology 08/21/23 Aysha Lang Referring Physician Podiatry 08/21/23 Roll Edge Stitcher Hand Relationship Specialty Start Date End Date Tess Ontiveros DO [address] [facility], [address] [place] [address] PCP - General Family Medicine 08/21/23 Luis Alvarez DO 195 [facility] Luis Alvarez MD [address] [place] [address] Referring Physician Otolaryngology 08/21/23 Jodi Awan MD PhD [address] [facility] [address] [place] [address] Consulting Physician Cardiology 08/21/23 [place] [address] [facility] Department [place] [address] Consulting Physician Orthopaedic Surgery 08/21/23 Lambert Caraballo MD 5[address] [facility], [address] [place] [address] Referring Physician Endocrinology 08/21/23 Aysha Lang Referring Physician Podiatry 08/21/23 Roll Edge Stitcher Hand Relationship Specialty Start Date End Date Tess Ontiveros DO [address] [facility], [address] [place] [address] PCP - General Family Medicine 08/21/23 Luis Alvarez DO 195 Rah Alvarez MD [address] [place], [place] [address]211 Referring Physician Otolaryngology 08/21/23 Jodi Awan MD PhD [address] [facility] [address] [place] [address] Consulting Physician Cardiology 08/21/23 [place] [address] [facility] [place] [address] Consulting Physician Orthopaedic Surgery 08/21/23 Cat Richardson MD 9318 [facility] [address] [place] [phone] 1st Contact Endocrinology 02/25/24 Aysha Lang Referring Physician Podiatry 08/21/23 Roll Edge Stitcher Hand Relationship Specialty Start Date End Date Saul [facility] [address] [place] [address] PCP - General 05/21/23 Roll Edge Stitcher Hand Relationship Specialty Start Date End Date Tess Ontiveros DO [address] [facility], [address] [place] [address] PCP - General Family Medicine 08/21/23 Luis Alvarez DO 195 Rah Alvarez MD [address] [place] [address] Referring Physician Otolaryngology 08/21/23 Jodi Awan MD PhD [facility] Al[address] Morgan [facility] [address] [place] [address] Consulting Physician Cardiology 08/21/23 [place] [address] [place] [facility] [place] [address] Consulting Physician Orthopaedic Surgery 08/21/23 Lambert Caraballo MD 5[address] [facility], [facility] [address] [place] [address] Referring Physician Endocrinology 08/21/23 02/24/24 Aysha Lang Referring Physician Podiatry 08/21/23 Roll Edge Stitcher Hand Relationship Specialty Start Date End Date [facility] [address] [place] [address] PCP - General 05/21/23 Roll Edge Stitcher Hand Relationship Specialty Start Date End Date [facility] [address] [place] [address] PCP - General 05/21/23 Roll Edge Stitcher Hand Relationship Specialty Start Date End Date [facility] [address] [place] [address] PCP - General 05/21/23 Roll Edge Stitcher Hand Relationship Specialty Start Date End Date Tess Ontiveros DO [address] [facility], [address] [place] [address] PCP - General Family Medicine 08/21/23 Tess Ontiveros DO 5[address] [facility], [address] [place] [address] PCP - MSSP ACO Attributed Provider 12/23/23 Luis Alvarez DO [address] [place] [address] Luis Alvarez MD [address] [place] [address] Referring Physician Otolaryngology 08/21/23 Jodi Awan MD PhD [address] [facility] [address] [place] [address] Consulting Physician Cardiology 08/21/23 [place] [address] [place] [facility] Department [place] [address] Consulting Physician Orthopaedic Surgery 08/21/23 Cat Richardson MD 9318 [facility] [address] [place] [address] [phone] 1st Contact Endocrinology 02/25/24 Ciara Roy MA Title Insurance AgentShopfitter 05/04/24 Aysha Lang Referring Physician Podiatry 08/21/23 Roll Edge Stitcher Hand Relationship Specialty Start Date End Date Tess Ontiveros DO [address] [facility], [facility] [address] [place] [address] PCP - General Family Medicine 08/21/23 Tess Ontiveros DO [address] [facility], [address] [place] [address] PCP - MSSP ACO Attributed Provider 12/23/23 Luis Alvarez DO [facility] Rah Luis Alvarez MD [facility] [address] [place] [address] Referring Physician Otolaryngology 08/21/23 Jodi Awan MD PhD [address] [facility] [address] [place] [address] Consulting Physician Cardiology 08/21/23 [place] [address] [address] [facility] Department [place] [address] Consulting Physician Orthopaedic Surgery 08/21/23 Cat Richardson MD [address] [place] [address] 1st Contact Endocrinology 02/25/24 Aysha Lang Referring Physician Podiatry 08/21/23 Roll Edge Stitcher Hand Relationship Specialty Start Date End Date Tess Ontiveros DO 5[address] [facility], [address] [place] [address] PCP - General Family Medicine 08/21/23 Tess Ontiveros DO [address] [facility], [address] [place] [address] PCP - MSSP ACO Attributed Provider 12/23/23 [facility] Luis Alvarez MD [facility] [address] [place] [address] Referring Physician Otolaryngology 08/21/23 Jodi Awan MD PhD [address] [facility] [address] [place] [address] Consulting Physician Cardiology 08/21/23 [place] [address] [facility] Department [place] [address] Consulting Physician Orthopaedic Surgery 08/21/23 Cat Richardson MD [address] [place] [phone] 1st Contact Endocrinology 02/25/24 Darnell Tan MD [address] [place] [address], [address] [place] [address] Referring Physician Obstetrics and Gynecology 08/31/24 Aysha Lang Referring Physician Podiatry 08/21/23 Roll Edge Stitcher Hand Relationship Specialty Start Date End Date Tess Ontiveros DO [address] [facility], [address] [place] [address] PCP - General Family Medicine 08/21/23 Mildred Hargrove DO [address] [facility], [address] [place] [address] PCP - MSSP ACO Attributed Provider 09/23/23 Luis Alvarez DO [address] [place] [address] Luis Alvarez MD [facility] [address] [place] [address] Referring Physician Otolaryngology 08/21/23 Jodi Awan MD PhD [address] [facility] [address] [place] [address] Consulting Physician Cardiology 08/21/23 [place] [address] [facility] [place] [address] Consulting Physician Orthopaedic Surgery 08/21/23 Cat Richardson MD 9318 [facility] [address] [place] [phone] 1st Contact Endocrinology 02/25/24 Aysha Lang Referring Physician Podiatry 08/21/23 Roll Edge Stitcher Hand Relationship Specialty Start Date End Date Tess Ontiveros DO 5[address] [facility], [address] [place] [address] PCP - General Family Medicine 08/21/23 Mildred Hargrove DO 5[address] [facility], [address] [place] [address] PCP - [facility] Attributed Provider 09/23/23 Luis Alvarez, [facility] Luis Alvarez MD [facility] [address] [place] [address] Referring Physician Otolaryngology 08/21/23 Jodi Awan MD PhD [address] [facility] [address] [place] [address] Consulting Physician Cardiology 08/21/23 [place] [address] [facility] [place] [address] Consulting Physician Orthopaedic Surgery 08/21/23 Cat Richardson MD [address] [phone] 1st Contact Endocrinology 02/25/24 Aysha Lang Referring Physician Podiatry 08/21/23 Roll Edge Stitcher Hand Relationship Specialty Start Date End Date Tess Ontiveros DO 5133 [facility], [address] [place] [address] PCP - General Family Medicine 08/21/23 Mildred Hargrove DO 5133 [facility], [address] [place] [address] PCP - MSSP ACO Attributed Provider 09/23/23 Luis Alvarez DO 195 Rah Alvarez MD [facility] [address] [place] [address] Referring Physician Otolaryngology 08/21/23 Jodi Awan MD PhD [address] [place] [address] [address] Consulting Physician Cardiology 08/21/23 [place] [address] [facility] Department [place] [address] Consulting Physician Orthopaedic Surgery 08/21/23 Cat Richardson MD 9318 [facility] [address] [place] [address] [phone] 1st Contact Endocrinology 02/25/24 Ciara Roy MA Title Insurance AgentShopfitter 05/04/24 Aysha Lang Referring Physician Podiatry 08/21/23 Roll Edge Stitcher Hand Relationship Specialty Start Date End Date Tess Ontiveros DO 5133 [facility], Juan Carlos 1 [place] [address] PCP - General Family Medicine 08/21/23 Mildred Hargrove DO 5133 [facility], [place] [address] 1 [place] [address] PCP - MSSP ACO Attributed Provider 09/23/23 Luis Alvarez DO 195 Rah Alvarez MD [place] 401 [place] [address] Referring Physician Otolaryngology 08/21/23 Jodi Awan MD PhD [address] [facility] 140 [place] [address] Consulting Physician Cardiology 08/21/23 [place] [address] [facility] [place] [address] Consulting Physician Orthopaedic Surgery 08/21/23 Cat Richardson MD [address] [phone] 1st Contact Endocrinology 02/25/24 Ciara Roy MA Title Insurance AgentShopfitter 05/04/24 Aysha Lang Referring Physician Podiatry 08/21/23 Roll Edge Stitcher Hand Relationship Specialty Start Date End Date Tess Ontiveros DO 5133 [facility], [place] [address] 1 [place] [address] PCP - General Family Medicine 08/21/23 Mildred Hargrove DO 5133 [facility], [place] 1 [place] [address] PCP - MSSP ACO Attributed Provider 09/23/23 Luis Alvarez DO 195 Rah Alvarez MD [place] 401 [place] [address] Referring Physician Otolaryngology 08/21/23 Jodi Awan MD PhD 4001 [address] Morgan [facility] 140 [place] [address] Consulting Physician Cardiology 08/21/23 [place] [address] [facility] [place] [address] Consulting Physician Orthopaedic Surgery 08/21/23 Cat Richardson MD 9318 [facility] [address] [place] [address] [phone] 1st Contact Endocrinology 02/25/24 Ciara Roy MA Title Insurance AgentShopfitter 05/04/24 Aysha Lang Referring Physician Podiatry 08/21/23 Roll Edge Stitcher Hand Relationship Specialty Start Date End Date Tess Ontiveros DO 5133 [facility], [facility] 1 [place] [address] PCP - General Family Medicine 08/21/23 Mildred Hargrove DO 5133 [facility], [place] 1 [place] [address] PCP - MSSP ACO Attributed Provider 09/23/23 [facility] 401 [place] [address] Referring Physician Otolaryngology 08/21/23 Jodi Awan MD PhD 4001 [address]angel 140 [place] [address] Consulting Physician Cardiology 08/21/23 [place] [address] [facility] [place] [address] Consulting Physician Orthopaedic Surgery 08/21/23 Cat Richardson MD [address] [place] [address] 1st Contact Endocrinology 02/25/24 Ciara Roy MA Title Insurance AgentShopfitter 05/04/24 Aysha Lang Referring Physician Podiatry 08/21/23 Roll Edge Stitcher Hand Relationship Specialty Start Date End Date Tess Ontiveros DO 5133 [facility], [place] [address] 1 [place] [address] PCP - General Family Medicine 08/21/23 Tess Ontiveros DO 5133 [facility], [place] 1 [place] [address] PCP - MSSP ACO Attributed Provider 12/23/23 Luis Alvarez DO [address] [place] [address] Luis Alvarez MD [facility] 401 [place] [address] Referring Physician Otolaryngology 08/21/23 Jodi Awan MD PhD [address] [facility] 140 [place] [address] Consulting Physician Cardiology 08/21/23 [place] [address] [facility] [place] [address] Consulting Physician Orthopaedic Surgery 08/21/23 Cat Richardson MD [address] [place] [address] [phone] 1st Contact Endocrinology 02/25/24 Ciara Roy MA Title Insurance AgentShopfitter 05/04/24 Aysha Lang Referring Physician Podiatry 08/21/23 Roll Edge Stitcher Hand Relationship Specialty Start Date End Date Tess Ontiveros DO 5133 [facility], [place] 1 [place] [address] PCP - General Family Medicine 08/21/23 Tess Ontiveros DO 5133 [facility], [place] [address] 1 [place] [address] PCP - [facility] Attributed Provider 12/23/23 [facility] 401 [place] [address] Referring Physician Otolaryngology 08/21/23 Jodi Awan MD PhD [address] [place] [address] [address] Consulting Physician Cardiology 08/21/23 [place] [address] [facility] Department [place] [address] Consulting Physician Orthopaedic Surgery 08/21/23 Cat Richardson MD [address] [phone] 1st Contact Endocrinology 02/25/24 Ciara Roy MA Title Insurance AgentShopfitter 05/04/24 Aysha Lang Referring Physician Podiatry 08/21/23 Roll Edge Stitcher Hand Relationship Specialty Start Date End Date Tess Ontiveros DO 5133 [facility], [place] 1 [place] [address] PCP - General Family Medicine 08/21/23 Tess Ontiveros DO 5133 [facility], [place] 1 [place] [address] PCP - [facility] Attributed Provider 12/23/23 Luis Alvarez, [address] [place] [address] Luis Alvarez MD [facility] 401 [place] [address] Referring Physician Otolaryngology 08/21/23 Jodi Awan MD PhD 4001 [place] [facility] 140 [place] [address] Consulting Physician Cardiology 08/21/23 [place] [address] [facility] Department [place] [address] Consulting Physician Orthopaedic Surgery 08/21/23 Cat Richardson MD [address] 006241 1st Contact Endocrinology 02/25/24 Aysha Lang Referring Physician Podiatry 08/21/23 Roll Edge Stitcher Hand Relationship Specialty Start Date End Date Tess Ontiveros DO 5133 [facility], [place] 1 [place] [address] PCP - General Family Medicine 08/21/23 Tess Ontiveros DO 5133 [facility], [place] 1 [place] [address] PCP - MSSP ACO Attributed Provider 12/23/23 Luis [facility] Luis Alvarez MD [place] [address] [place] [address] Referring Physician Otolaryngology 08/21/23 Jodi Awan MD PhD 4[address] [place] [facility] 140 [place] [address] Consulting Physician Cardiology 08/21/23 [place] [address] [facility] Department [place] [address] Consulting Physician Orthopaedic Surgery 08/21/23 Cat Richardson MD 9318 [facility] [address] [place] [address] [phone] 1st Contact Endocrinology 02/25/24 Darnell Tan MD [address] [place] [address], [address] [place], [place] [phone] Referring Physician Obstetrics and Gynecology 08/31/24 Aysha Lang Referring Physician Podiatry 08/21/23 Roll Edge Stitcher Hand Relationship Specialty Start Date End Date Tess Ontiveros DO [address] [facility], [place] 1 [place] [address] PCP - General Family Medicine 08/21/23 Tess Ontiveros DO [address] [facility], [place] 1 [place] [address] PCP - MSSP ACO Attributed Provider 12/23/23 Luis Alvarez DO 195 Rah Alvarez MD [place] 401 [place] [address] Referring Physician Otolaryngology 08/21/23 Jodi Awan MD PhD [address] [facility] 140 [place] [address] Consulting Physician Cardiology 08/21/23 [place] [address] [facility] Department [place] [address] Consulting Physician Orthopaedic Surgery 08/21/23 Cat Richardson MD 9318 [facility] [address] [place] [address] [phone] 1st Contact Endocrinology 02/25/24 Darnell Tan MD [address] [place] [address], [address] [place] [address] Referring Physician Obstetrics and Gynecology 08/31/24 Ji Galo MD 6707 [facility] 309 [place] [address] Consulting Physician Gastroenterology 10/20/24 Aysha Lang Referring Physician Podiatry 08/21/23 Roll Edge Stitcher Hand Relationship Specialty Start Date End Date Tess Ontiveros DO 5133 [facility], [place] 1 [place] [address] PCP - General Family Medicine 08/21/23 Tess Ontiveros DO 5133 [facility], [place] 1 [place] [address] PCP - MSSP ACO Attributed Provider 12/23/23 Luis Alvarez DO [facility] Rah Luis Alvarez MD [place] [address] [place] [address] Referring Physician Otolaryngology 08/21/23 Jodi Awan MD PhD 4001 [place] [facility] 140 [place] [address] Consulting Physician Cardiology 08/21/23 [place] [address] [facility] Department [place] [address] Consulting Physician Orthopaedic Surgery 08/21/23 Cat Richardson MD 9318 [facility] [address] [place] [address] 1st Contact Endocrinology 02/25/24 Darnell Tan MD [address] [place] [address], [address] [place] [address] Referring Physician Obstetrics and Gynecology 08/31/24 Ji Galo MD 6707 [facility] 309 [place] [address] Consulting Physician Gastroenterology 10/20/24 Aysha Lang Referring Physician Podiatry 08/21/23 Roll Edge Stitcher Hand Relationship Specialty Start Date End Date Tess Ontiveros DO 5133 [facility], [place] 1 [place] [address] PCP - General Family Medicine 08/21/23 Tess Ontiveros DO [address] [facility], [place] 1 [place] [address] PCP - MSSP ACO Attributed Provider 12/23/23 Luis Alvarez DO 195 Rah Luis Alvarez MD [place] [address] [place] [address] Referring Physician Otolaryngology 08/21/23 Jodi Awan MD PhD 4001 [facility] 140 [place] [address] Consulting Physician Cardiology 08/21/23 [place] [address] [facility] Department [place] [address] Consulting Physician Orthopaedic Surgery 08/21/23 Cat Richardson MD 9318 [facility] [address] [place] [address] [phone] 1st Contact Endocrinology 02/25/24 Darnell Tan MD [address] [place] [address], [address] [place] [address] Referring Physician Obstetrics and Gynecology 08/31/24 Ji Galo MD 6707 [employer] [facility] 309 [place] [address] Consulting Physician Gastroenterology 10/20/24 Silas Stern MD 6707 [employer] [facility] 309 [place] [address] Surgeon General Surgery 10/30/24 Aysha Lang Referring Physician Podiatry 08/21/23 Roll Edge Stitcher Hand Relationship Specialty Start Date End Date Tess Ontiveros DO [address] [facility], [place] 1 [place] [address] PCP - General Family Medicine 08/21/23 Tess Ontiveros DO [address] [facility], Juan [place] 1 [place] [address] PCP - MSSP ACO Attributed Provider 12/23/23 Luis Alvarez DO [facility] Rah Luis Alvarez MD [facility] 401 [place] [address] Referring Physician Otolaryngology 08/21/23 Jodi Awan MD PhD 4001 [facility] 140 [place] [address] Consulting Physician Cardiology 08/21/23 [place] [address] [facility] Department [place] [address] Consulting Physician Orthopaedic Surgery 08/21/23 Cat Richardson MD [address] [place] [address] [place] [address] 147141 1st Contact Endocrinology 02/25/24 Darnell Tan MD [address] [place] [address], [address] [place] [address] Referring Physician Obstetrics and Gynecology 08/31/24 Ji Galo MD 6707 [facility] 309 [place] [address] Consulting Physician Gastroenterology 10/20/24 Silas Stern MD 6707 [facility] 309 [place] [address] Surgeon General Surgery 10/30/24 Aysha Lang Referring Physician Podiatry 08/21/23 Roll Edge Stitcher Hand Relationship Specialty Start Date End Date Tess Ontiveros DO 5133 [facility], [place] 1 [place] [address] PCP - General Family Medicine 08/21/23 Tess Ontiveros DO 5133 [facility], [place] 1 [place] [address] PCP - MSSP ACO Attributed Provider 12/23/23 [facility] Luis Alvarez MD [facility] 401 [place] [address] Referring Physician Otolaryngology 08/21/23 Jodi Awan MD PhD [address] [facility] 140 [place] [address] Consulting Physician Cardiology 08/21/23 [place] [address] [facility] Department [place] [address] Consulting Physician Orthopaedic Surgery 08/21/23 Cat Richardson MD 9318 [facility] [address] [place] [address] 1st Contact Endocrinology 02/25/24 Darnell Tan MD [address] [place] [address], [address] [place] [address] Referring Physician Obstetrics and Gynecology 08/31/24 Ji Galo MD 6707 [employer] [facility] [place] [address] [place] [address] Consulting Physician Gastroenterology 10/20/24 Silas Stern MD 6707 [employer] [facility] 309 [place] [address] Surgeon General Surgery 10/30/24 Aysha Lang Referring Physician Podiatry 08/21/23 Roll Edge Stitcher Hand Relationship Specialty Start Date End Date Tess Ontiveros DO 5133 [facility], [place] 1 [place] [address] PCP - General Family Medicine 08/21/23 Tess Ontiveros DO 5133 [facility], [place] 1 [place] [address] PCP - MSSP ACO Attributed Provider 12/23/23 Luis Alvarez DO [facility] Rah Alvarez MD [facility] 401 [place] [address] Referring Physician Otolaryngology 08/21/23 Jodi Awan MD PhD 4001 [address] [facility] 140 [place] [address] Consulting Physician Cardiology 08/21/23 [place] [address] [facility] Department [place] [address] Consulting Physician Orthopaedic Surgery 08/21/23 Cat Richardson MD 9318 [facility] [address] [place] [address] 1st Contact Endocrinology 02/25/24 Darnell Tan MD [address] [place] [address], [address] [place] [address] Referring Physician Obstetrics and Gynecology 08/31/24 Ji Galo MD [address] [address] Consulting Physician Gastroenterology 10/20/24 Silas Stern MD [address] [address] Surgeon General Surgery 10/30/24 Anthony Cruz, DPM [address] [address] Surgeon Podiatry 11/25/24 Ciara Roy MA Title Insurance AgentShopfitter 11/30/24 Aysha Lang Referring Physician Podiatry 08/21/23 Roll Edge Stitcher Hand Relationship Specialty Start Date End Date Tess Ontiveros DO 5133 [facility], [place] 1 [place] [address] PCP - General Family Medicine 08/21/23 eTss Ontiveros DO 5133 [facility], [place] 1 [place] [address] PCP - MSSP ACO Attributed Provider 12/23/23 Luis Alvarez DO 195 [place] Luis Alvarez MD [facility] 401 [place], [place] 289[address] Referring Physician Otolaryngology 08/21/23 oJdi Awan MD PhD 4001 [facility] 140 [place] [address] Consulting Physician Cardiology 08/21/23 [place] [address] [facility] Department [place] [address] Consulting Physician Orthopaedic Surgery 08/21/23 Cat Richardson MD 9318 [facility] [address] [place] [address] [phone] 1st Contact Endocrinology 02/25/24 Darnell Tan MD [address] [place] [address], [address] [place], [place] [address] Referring Physician Obstetrics and Gynecology 08/31/24 Ji Galo MD [address] [address] Consulting Physician Gastroenterology 10/20/24 Silas Stern MD 6707 [facility] 309 [place] [address] Surgeon General Surgery 10/30/24 Anthony Cruz DPM 7482 [facility] 100 [place] [address] Surgeon Podiatry 11/25/24 Ciara Roy MA Title Insurance AgentShopfitter 11/30/24 Aysha Lang Referring Physician Podiatry 08/21/23 Roll Edge Stitcher Hand Relationship Specialty Start Date End Date Tess Ontiveros DO [address] [facility], [place] 1 [place] [address] PCP - General Family Medicine 08/21/23 Tess Ontiveros DO [address] [facility], [place] 1 [place] [address] PCP - MSSP ACO Attributed Provider 12/23/23 Luis Alvarez DO [facility] Rah Luis Alvarez MD [facility] 401 [place] [address] Referring Physician Otolaryngology 08/21/23 Jodi Awan MD PhD 4001 [place] [facility] 140 [place] [address] Consulting Physician Cardiology 08/21/23 [place] [address] [facility] Department [place] [address] Consulting Physician Orthopaedic Surgery 08/21/23 Cat Richardson MD [address] [place] [address] [place] [address] 1st Contact Endocrinology 02/25/24 Darnell Tan MD [address] [place] [address], [address] [place] [address] Referring Physician Obstetrics and Gynecology 08/31/24 Ji Galo MD 6707 [facility] 309 [place] [address] Consulting Physician Gastroenterology 10/20/24 Silas Stern MD 6707 [facility] 309 [place] [address] Surgeon General Surgery 10/30/24 Anthony Cruz, DPM 7482 [facility] 100 [place] [address] Surgeon Podiatry 11/25/24 Ciara Roy MA Title Insurance AgentShopfitter 11/30/24 Aysha Lang Referring Physician Podiatry 08/21/23 Team Status: Active Member Role Status Dates Dr. Aries Hill MD Primary Care Provider Active Start: November 26, 2024 Dr. Saurav Arellano MD Referring Provider Active Start: November 26, 2024 Dr. Matt Jose DO Emergency Provider Active Start: November 26, 2024 Dr. Sanchez Mendez DO Attending Provider Active Start: November 26, 2024 Team Status: Inactive Member Role Status Dates Dr. Tess Ontiveros DO Primary Care Provider Ac tive Start: December 21, 2024 End: December 21, 2024 Dr. Saurav Arellano MD Attending Provider Active Start: December 21, 2024 End: December 21, 2024 Dr. Saurav Arellano MD Referring Provider Active Start: December 21, 2024 End: December 21, 2024 Team Status: Active Member Role Status Dates Dr. Tess Ontiveros DO Primary Care Provider Ac tive Start: December 23, 2024 Dr. Saurav Arellano MD Attending Provider Active Start: December 23, 2024 Dr. Saurav Arellano MD Referring Provider Active Start: December 23, 2024 Team Status: Inactive Member Role Status Dates Dr. Tess Ontiveros DO Primary Care Provider Ac tive Start: December 23, 2024 End: December 23, 2024 Dr. Niles Melara DO Emergency Provider Active Start: December 23, 2024 End: December 23, 2024 Roll Edge Stitcher Hand Relationship Specialty Start Date End Date Tess Ontiveros DO [address] [facility], [place] 1 [place] [address] PCP - General Family Medicine 08/21/23 Tess Ontiveros DO [address] [facility], Juan [place] 1 [place] [address] PCP - [facility]CO Attributed Provider 12/23/23 Luis Alvarez, 195 Rah Luis Alvarez MD [place] [address] [place] [address] Referring Physician Otolaryngology 08/21/23 Jodi Awan MD PhD 4001 [facility] 140 [place] [address] Consulting Physician Cardiology 08/21/23 [place] [address] [facility] Department [place] [address] Consulting Physician Orthopaedic Surgery 08/21/23 Cat Richardson MD 9318 [facility] [address] [place] [address] [phone] 1st Contact Endocrinology 02/25/24 Darnell Tan MD [address] [place] [address], [address] [place] [address] Referring Physician Obstetrics and Gynecology 08/31/24 Ji Galo MD 6707 [facility] 309 [place], [place] 357[address] Consulting Physician Gastroenterology 10/20/24 Silas Stern MD 6707 [facility] 309 [place] [address] Surgeon General Surgery 10/30/24 Anthony Cruz, DPM 7482 [facility] 100 [place] [address] Surgeon Podiatry 11/25/24 Ciara Roy MA Title Insurance AgentShopfitter 11/30/24 Aysha Lang Referring Physician Podiatry 08/21/23 Roll Edge Stitcher Hand Relationship Specialty Start Date End Date Tess Ontiveros DO 5133 [facility], [place] 1 [place] [address] PCP - General Family Medicine 08/21/23 Tess Ontiveros DO 5133 [facility], [place] 1 [place] [address] PCP - MSSP ACO Attributed Provider 12/23/23 Luis Alvarez DO [address] Luis Alvarez MD [facility] 401 [place] [address] Referring Physician Otolaryngology 08/21/23 Jodi Awan MD PhD [address] [facility] 140 [place] [address] Consulting Physician Cardiology 08/21/23 [place] [address] [facility] Department [place] [address] Consulting Physician Orthopaedic Surgery 08/21/23 Cat Richardson MD 9318 [facility] [address] [place] [address] [phone] 1st Contact Endocrinology 02/25/24 Darnell Tan MD [address] [place] [address], [address] [place] [address] Referring Physician Obstetrics and Gynecology 08/31/24 Ji Galo MD 6707 [facility] 309 [place] [address] Consulting Physician Gastroenterology 10/20/24 Silas Stern MD 6707 [facility] 309 [place] [address] Surgeon General Surgery 10/30/24 Anthony Cruz, DPM 7482 [facility] 100 [place] [address] Surgeon Podiatry 11/25/24 Ciara Roy MA Title Insurance AgentShopfitter 11/30/24 Aysha Lang Referring Physician Podiatry 08/21/23 Roll Edge Stitcher Hand Relationship Specialty Start Date End Date Tess Ontiveros DO 5133 [facility], Juan [address] 1 [place] [address] PCP - General Family Medicine 08/21/23 Tess Ontiveros DO 5133 [facility], [place] 1 [place] [address] PCP - MSSP ACO Attributed Provider 12/23/23 Luis Alvarez DO [facility] Rah Alvarez MD [place] [address] [place] [address] Referring Physician Otolaryngology 08/21/23 Jodi Awan MD PhD [address] [address] Consulting Physician Cardiology 08/21/23 [place] [address] [facility] Department [place] [address] Consulting Physician Orthopaedic Surgery 08/21/23 Cat Richardson MD [address] [place] [address] [place] [address] [phone] 1st Contact Endocrinology 02/25/24 Darnell Tan MD [address] [place] [address], [address] [place] [address] Referring Physician Obstetrics and Gynecology 08/31/24 Ji Galo MD [address] [address] Consulting Physician Gastroenterology 10/20/24 Silas Stern MD [address] [address] Surgeon General Surgery 10/30/24 Anthony Cruz, DPM [address] [address] Surgeon Podiatry 11/25/24 Ciara Roy MA Title Insurance AgentShopfitter 11/30/24 Aysha Lang Referring Physician Podiatry 08/21/23 Roll Edge Stitcher Hand Relationship Specialty Start Date End Date [facility] [address] [place] [address] PCP - General 05/21/23 Team Status: Inactive Member Role Status Dates Dr. Tess Ontiveros DO Primary Care Provider Ac tive Start: December 23, 2024 End: December 23, 2024 Dr. Niles Melara DO Attending Provider Active Start: December 23, 2024 End: December 23, 2024 Dr. Niles Melara DO Emergency Provider Active Start: December 23, 2024 End: December 23, 2024 Team Status: Active Member Role Status Dates Dr. Tess Ontiveros DO Primary Care Provider Ac tive Start: December 23, 2024 Dr. Elio Correa MD Attending Provider Active S tart: December 23, 2024 Dr. Niles Melara DO Referring Provider Active Start: December 23, 2024 Team Status: Inactive Member Role Status Dates Dr. Tess Ontiveros DO Primary Care Provider Ac tive Start: January 20, 2025 End: January 20, 2025 Dr. Saurav Arellano MD Attending Provider Active Start: January 20, 2025 End: January 20, 2025 Dr. Saurav Arellano MD Referring Provider Active Start: January 20, 2025 End: January 20, 2025 Team Status: Inactive Member Role Status Dates Dr. Tess Ontiveros DO Primary Care Provider Ac tive Start: February 19, 2025 End: February 20, 2025 Dr. Saurav Arellano MD Attending Provider Active Start: February 19, 2025 End: February 20, 2025 Dr. Saurav Arellano MD Referring Provider Active Start: February 19, 2025 End: February 20, 2025 Roll Edge Stitcher Hand Relationship Specialty Start Date End Date Tess Ontiveros DO 5133 [facility] [address] [place] [id number] PCP - General Family Medicine 03/01/25 Roll Edge Stitcher Hand Relationship Specialty Start Date End Date Tess Ontiveros DO 5133 [facility], [address] [place] [address] PCP - General Family Medicine 08/21/23 Tess Ontiveros DO 5133 [facility], [address] [place] [address] PCP - MSSP ACO Attributed Provider 12/23/23 Luis Alvarez DO [address] [place] [address] Luis Alvarez MD [address] [place] [address] Referring Physician Otolaryngology 08/21/23 Jodi Awan MD PhD 4001 [facility] 140 [place] [address] Consulting Physician Cardiology 08/21/23 [place] [address] [facility] [place] [address] Consulting Physician Orthopaedic Surgery 08/21/23 Cat Richardson MD [address] [place] [address] [place] [id number] 1st Contact Endocrinology 02/25/24 Darnell Tan MD [address] [place] [address], [address] [place] [address] Referring Physician Obstetrics and Gynecology 08/31/24 Ji Galo MD [address] [id number] Consulting Physician Gastroenterology 10/20/24 Silas Stern MD [address] [place] [address] Surgeon General Surgery 10/30/24 Anthony Cruz, DPM 7482 [facility] 100 [place] [address] Surgeon Podiatry 11/25/24 Ciara Roy MA Title Insurance AgentShopfitter 11/30/24 Aysha Lang Referring Physician Podiatry 08/21/23 Team Status: Active Member Role/Relationship Status Dates Dr. Tess Ontiveros DO Primary Care Provider Ac tive Team Status: Inactive Member Role/Relationship Status Dates Dr. Aries Hill MD Primary Care Provider Active Start: November 26, 2024 End: November 28, 2024 Dr. Saurav Arellano MD Referring Provider Active Start: November 26, 2024 End: November 28, 2024 Dr. Saurav Arellano MD Other Provider Active Star t: November 26, 2024 End: November 28, 2024 Dr. Matt Jose DO Emergency Provider Active Start: November 26, 2024 End: November 28, 2024 Dr. Tahira De MD Admit Provider Active St art: November 26, 2024 End: November 28, 2024 Dr. Tahira De MD Attending Provider Active Start: November 26, 2024 End: November 28, 2024 Dr. Sanchez Mendez DO Other Provider Active Start: November 26, 2024 End: November 28, 2024 Dr. Sanchez Mendez DO Other Provider Active Start: November 26, 2024 Team Status: Active Member Role/Relationship Status Dates Dr. Aries Hill MD Primary Care Provider Active Start: November 26, 2024 Dr. Saurav Arellano MD Attending Provider Active Start: November 26, 2024 Dr. Saurav Arellano MD Referring Provider Active Start: November 26, 2024 Dr. Saurav Arellano MD Other Provider Active Star t: November 26, 2024 Dr. Matt Jose DO Emergency Provider Active Start: November 26, 2024 Dr. Sanchez Mendez DO Other Provider Active Start: November 26, 2024 Team Status: Active Member Role/Relationship Status Dates Dr. Aries Hill MD Primary Care Provider Active Start: November 27, 2024 Dr. Saurav Arellano MD Other Provider Active Star t: November 27, 2024 Dr. Matt Jose DO Emergency Provider Active Start: November 27, 2024 Dr. Tahira De MD Admit Provider Active St art: November 27, 2024 Dr. Tahira De MD Attending Provider Active Start: November 27, 2024 Dr. Taihra De MD Other Provider Active St art: November 27, 2024 Dr. Sanchez Mendez DO Other Provider Active Start: November 27, 2024 Team Status: Active Member Role/Relationship Status Dates Dr. Aries Hill MD Primary Care Provider Active Start: November 27, 2024 Dr. Saurav Arellano MD Attending Provider Active Start: November 27, 2024 Dr. Saurav Arellano MD Referring Provider Active Start: November 27, 2024 Dr. Saurav Arellano MD Other Provider Active Star t: November 27, 2024 Dr. Matt Jose DO Emergency Provider Active Start: November 27, 2024 Dr. Tahira De MD Admit Provider Active St art: November 27, 2024 Dr. Tahira De MD Other Provider Active St art: November 27, 2024 Dr. Sanchez Mendez DO Other Provider Active Start: November 27, 2024 Team Status: Active Member Role/Relationship Status Dates Dr. Aries Hill MD Primary Care Provider Active Start: November 28, 2024 Dr. Saurav Arellano MD Attending Provider Active Start: November 28, 2024 Dr. Saurav Arellano MD Referring Provider Active Start: November 28, 2024 Dr. Saurav Arellano MD Other Provider Active Star t: November 28, 2024 Dr. Matt Jose DO Emergency Provider Active Start: November 28, 2024 Dr. Tahira De MD Admit Provider Active St art: November 28, 2024 Dr. Tahira De MD Other Provider Active St art: November 28, 2024 Dr. Sanchez Mendez DO Other Provider Active Start: November 28, 2024 Team Status: Active Member Role/Relationship Status Dates Dr. Aries Hill MD Primary Care Provider Active Start: November 28, 2024 Dr. Saurav Arellano MD Other Provider Active Star t: November 28, 2024 Dr. Matt Jose DO Emergency Provider Active Start: November 28, 2024 Dr. Tahira De MD Admit Provider Active St art: November 28, 2024 Dr. Tahira De MD Attending Provider Active Start: November 28, 2024 Dr. Tahira De MD Other Provider Active St art: November 28, 2024 Dr. Sanchez Mendez DO Other Provider Active Start: November 28, 2024 Team Status: Inactive Member Role/Relationship Status Dates Dr. Saurav Arellano MD Attending Provider Active Start: December 04, 2024 End: December 04, 2024 Dr. Saurav Arellano MD Referring Provider Active Start: December 04, 2024 End: December 04, 2024 Dr. Tess Ontiveros DO Primary Care Provider Ac tive Start: December 04, 2024 End: December 04, 2024 Team Status: Inactive Member Role/Relationship Status Dates Dr. Tess Ontiveros DO Primary Care Provider Ac tive Start: December 21, 2024 End: December 21, 2024 Dr. Saurav Arellano MD Attending Provider Active Start: December 21, 2024 End: December 21, 2024 Dr. Saurav Arellano MD Referring Provider Active Start: December 21, 2024 End: December 21, 2024 Team Status: Inactive Member Role/Relationship Status Dates Dr. Tess Ontiveros DO Primary Care Provider Ac tive Start: December 23, 2024 End: December 23, 2024 Dr. Niles Melara DO Attending Provider Active Start: December 23, 2024 End: December 23, 2024 Dr. Niles Melara DO Emergency Provider Active Start: December 23, 2024 End: December 23, 2024 Team Status: Active Member Role/Relationship Status Dates Dr. Tess Ontiveros DO Primary Care Provider Ac tive Start: December 23, 2024 Dr. Elio Correa MD Attending Provider Active S tart: December 23, 2024 Dr. Niles Melara DO Referring Provider Active Start: December 23, 2024 Team Status: Inactive Member Role/Relationship Status Dates Dr. Tess Ontiveros DO Primary Care Provider Ac tive Start: January 20, 2025 End: January 20, 2025 Dr. Saurav Arellano MD Attending Provider Active Start: January 20, 2025 End: January 20, 2025 Dr. Saurav Arellano MD Referring Provider Active Start: January 20, 2025 End: January 20, 2025 Team Status: Inactive Member Role/Relationship Status Dates Dr. Tess Ontiveros DO Primary Care Provider Ac tive Start: February 19, 2025 End: February 20, 2025 Dr. Saurav Arellano MD Attending Provider Active Start: February 19, 2025 End: February 20, 2025 Dr. Saurav Arellano MD Referring Provider Active Start: February 19, 2025 End: February 20, 2025 Team Status: Inactive Member Role/Relationship Status Dates Dr. Tess Ontiveros DO Primary Care Provider Ac tive Start: March 22, 2025 End: March 22, 2025 Dr. Saurav Arellano MD Attending Provider Active Start: March 22, 2025 End: March 22, 2025 Dr. Saurav Arellano MD Referring Provider Active Start: March 22, 2025 End: March 22, 2025 Roll Edge Stitcher Hand Relationship Specialty Start Date End Date Tess Ontiveros DO 5133 [facility], [address] [place] [address] PCP - General Family Medicine 08/21/23 Tess Ontiveros DO 5133 [facility], [address] [place], [place] [address] PCP - MSSP ACO Attributed Provider 12/23/23 Luis Alvarez DO [facility] Rah Alvarez MD [address] [place] [address] Referring Physician Otolaryngology 08/21/23 Jodi Awan MD PhD 4001 [facility] 140 [place], [place] [id number] Consulting Physician Cardiology 08/21/23 [place] [address] [facility] Department [place] [address] Consulting Physician Orthopaedic Surgery 08/21/23 Cat Richardson MD 9318 [facility] [address] [place] [id number] 1st Contact Endocrinology 02/25/24 Darnell Tan MD [address] [place] [address], [address] [place], [place] [id number] Referring Physician Obstetrics and Gynecology 08/31/24 Ji Galo MD [address] [address] Consulting Physician Gastroenterology 10/20/24 Silas Stern MD [address] [address] Surgeon General Surgery 10/30/24 Anthony Cruz, DPM [address] [address] Surgeon Podiatry 11/25/24 Aysha Lang Referring Physician Podiatry 08/21/23 Team Status: Inactive Member Role/Relationship Status Dates Dr. Tess Ontiveros DO Primary Care Provider Ac tive Start: December 21, 2024 End: December 21, 2024 Dr. Saurav Arellano MD Attending Provider Active Start: December 21, 2024 End: December 21, 2024 Dr. Saurav Arellano MD Referring Provider Active Start: December 21, 2024 End: December 21, 2024 Team Status: Inactive Member Role/Relationship Status Dates Dr. Tess Ontiveros DO Primary Care Provider Ac tive Start: December 23, 2024 End: December 23, 2024 Dr. Niles Melara DO Attending Provider Active Start: December 23, 2024 End: December 23, 2024 Dr. Niles Melara DO Emergency Provider Active Start: December 23, 2024 End: December 23, 2024 Team Status: Active Member Role/Relationship Status Dates Dr. Tess Ontiveros DO Primary Care Provider Ac tive Start: December 23, 2024 Dr. Elio Correa MD Attending Provider Active S tart: December 23, 2024 Dr. Niles Melara DO Referring Provider Active Start: December 23, 2024 Team Status: Inactive Member Role/Relationship Status Dates Dr. Tess Ontiveros DO Primary Care Provider Ac tive Start: January 20, 2025 End: January 20, 2025 Dr. Saurav Arellano MD Attending Provider Active Start: January 20, 2025 End: January 20, 2025 Dr. Saurav Arellano MD Referring Provider Active Start: January 20, 2025 End: January 20, 2025 Team Status: Inactive Member Role/Relationship Status Dates Dr. Tess Ontiveros DO Primary Care Provider Ac tive Start: February 19, 2025 End: February 20, 2025 Dr. Saurav Arellano MD Attending Provider Active Start: February 19, 2025 End: February 20, 2025 Dr. Saurav Arellano MD Referring Provider Active Start: February 19, 2025 End: February 20, 2025 Team Status: Inactive Member Role/Relationship Status Dates Dr. Tess Ontiveros DO Primary Care Provider Ac tive Start: March 22, 2025 End: March 22, 2025 Dr. Saurav Arellano MD Attending Provider Active Start: March 22, 2025 End: March 22, 2025 Dr. Saurav Arellano MD Referring Provider Active Start: March 22, 2025 End: March 22, 2025 Team Status: Active Member Role/Relationship Status Dates Dr. Tess Ontiveros DO Primary Care Provider Ac tive Start: March 24, 2025 Dr. Saurav Arellano MD Attending Provider Active Start: March 24, 2025 Dr. Saurav Arellano MD Referring Provider Active Start: March 24, 2025 Team Status: Active Member Role/Relationship Status Dates Dr. Tess Ontiveros DO Primary Care Provider Ac tive Start: April 01, 2025 Self Referred Attending Provider Active Start: 2024 Self Referred Referring Provider Active Start: 2024 Team Status: Inactive Member Role/Relationship Status Dates Dr. Aries Hill MD Referring Provider Active Start: April 05, 2025 End: April 05, 2025 Dr. Antonio Brooks MD Attending Provider Active Start: April 05, 2025 End: April 05, 2025 Dr. Tess Ontiveros DO Primary Care Provider Ac tive Start: April 05, 2025 End: April 05, 2025 Roll Edge Stitcher Hand Relationship Specialty Start Date End Date Tess Ontiveros DO 5133 [facility], [address] [place] [address] PCP - General Family Medicine 08/21/23 Tess Ontiveros DO 5133 [facility], [address] [place], [place] [id number] PCP - MSSP ACO Attributed Provider 12/23/23 Luis Alvarez, 195 Rah Alvarez MD [facility] 401 [place] [address] Referring Physician Otolaryngology 08/21/23 Jodi Awan MD PhD [address] [facility] 140 [place] [address] Consulting Physician Cardiology 08/21/23 [place] [address] [facility] Department [place] [address] Consulting Physician Orthopaedic Surgery 08/21/23 Cat Richardson MD 9318 [facility] [address] [place] [phone] 1st Contact Endocrinology 02/25/24 Darnell Tan MD [address] [place] [address], [address] [place] [address] Referring Physician Obstetrics and Gynecology 08/31/24 Ji Galo MD [address] [address] Consulting Physician Gastroenterology 10/20/24 Silas Stern MD 6704 [facility] 309 [place] [address] Surgeon General Surgery 10/30/24 Anthony Cruz DPM 7482 [facility] 100 [place] [address] Surgeon Podiatry 11/25/24 Aysha Lang Referring Physician Podiatry 08/21/23 Reason for Visit (unrecogniz ed section and content) Reason Comments Diabetes Specialty Diagnoses / Procedures Referred By Contjuan carlos t Referred To Contact Diagnoses Type 2 diabetes mellitus with hyperglycemia, with long-term current use of insulin Procedures Follow up in Endocrinology Pharmacy Cat Richardson MD 9318 [facility] [address] [place] [address] Phone: tel: fax: Referral ID Status Reason Start Date Expiration Date V isits Requested Visits Authorized [id number] Authorized 12/26/2024 12/26/2025 1 1 Reason Comments Diabetes Hypertension New Patient Visit Reason Comments Follow-up Tested Positive for Covid, needs note to return to work Reason Comments Establish Care Back Pain Left mid back since having surgery Reason Comments Allergy Testing NPV pt would like to be tested Reason Comments Follow-up [facility]. UTI C/o burning. States it wasn't addressed at hospital. Have specimen and will process POCT Reason Comments Diabetes Type ll diabetes (Fritz tiegriselda morning sugars 132) Specialty Diagnoses / Procedures Referred By Contac t Referred To Contact Radiology Diagnoses Chronic low back pain without sciatica, unspecified back pain laterality Procedures MR lumbar spine wo IV contrast Yanelis Ayala, JOSE [address] [place] [address] Referral ID Status Reason Start Date Expiration Date Visits Requested Visits Authorized [id number] Pending Review Perform Procedure 01/03/2024 01/02/2025 1 1 Reason Comments Follow-up MRI Review Reason Comments Medicare Annual Wellness Visit [facility] [place] [place] t Follow-up Specialty Diagnoses / Procedures Referred By Contac t Referred To Contact Primary Care Diagnoses HTN (hypertension), benign Procedures Follow Up In Advanced Primary [facility] - PCP - Established Tess Ontiveros DO 7188 [facility], [facility] 1 [place] [address] Referral ID Status Reason Start Date Expiration Date V isits Requested Visits Authorized [id number] Authorized 08/21/2023 08/20/2024 1 1 Reason Comments Diabetes Type ll diabetes Mor mireya sugars 104 Reason Comments UTI chronic Reason Onset Date Comments Results 07/20/2024 Reason Comments Diabetes Request mikala cgm Reason Comments Follow-up Specialty Diagnoses / Procedures Referred By Contac t Referred To Contact Radiology Diagnoses Screening mammogram for breast cancer Procedures BI mammo bilateral screening tomosynthesis Tess Ontiveros DO 2916 [facility], [facility] 1 [place] [address] Referral ID Status Reason Start Date Expiration Date Visits Requested Visits Authorized [id number] Authorized Perform Procedure 02/25/2024 02/24/2025 1 1 Specialty Diagnoses / Procedures Referred By Contac t Referred To Contact Diagnoses Lumbar radiculopathy Lumbar radiculopathy [M54.16] Procedures AK MOORE FACETECTOMY & FORAMOTOMY 1 VRT SGM LUMBAR AK MOORE FACETECTOMY&FORAMOT 1 VRT SGM EA ADDL SGM L3-L4 Lumbar L[place] [address] [facility] [place] [address] [facility] [address] [place] [address] Referral ID Status Reason Start Date Expiration Date Visits Re quested Visits Authorized [id number] 1 1 Reason Comments Vaginal Itching Inside the vulva- 3 days ago. Stopped Keflex yesterday AMPt was taking Keflex for UTI Lab results Dr. Awan has co ncerns about WBC- Dr. Pablo did 04/24 Reason Comments Post-op Reason Comments Diabetes Type ll diabetes (Pa tient morning sugars ) Reason Comments Follow-up Follow up from [facility] follow up Fatigue Feels she is not get ting any energy back from surgery, Irregular Heart Beat Stated has been in 100s Specialty Diagnoses / Procedures Referred By Contac t Referred To Contact Primary Care Diagnoses HTN (hypertension), benign Procedures Follow Up In Advanced [facility] - PCP - Established Dean Nick MD 5133 [facility], [address] [place] [address] Tess Ontiveros DO 5133 [facility], [facility] 1 [place] [address] Referral ID Status Reason Start Date Expiration Date V isits Requested Visits Authorized [id number] Authorized 05/11/2024 05/11/2025 1 1 Specialty Diagnoses / Procedures Referred By Contac t Referred To Contact Cardiology Diagnoses Tachycardia Procedures Holter or Event 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 Tess Ontiveros DO 9433 [facility], [facility] 1 [place] [address] Referral ID Status Reason Start Date Expiration Date V isits Requested Visits Authorized [id number] Authorized 05/27/2024 05/27/2025 1 1 Reason Comments Follow-up Post-op Reason Comments Abdominal Pain Mid epigastric pain for 8 years. Sometimes it is worse. Feels like a stabbing pain, like a knife. Specialty Diagnoses / Procedures Referred By Contac t Referred To Contact Gastroenterology Diagnoses Epigastric pain Tess Ontiveros, DO 5133 [facility], [place] [address] [place] [address] Phone: tel: fax: Referral ID Status Reason Start Date Expiration Date Visits Requested Visits Authorized [id number] Authorized Specialty Services Required 05/27/2024 05/27/2025 1 1 Reason Comments New Patient Visit NPV-UMBILICAL HERNIA Reason Comments Diabetes Specialty Diagnoses / Procedures Referred By Contac t Referred To Contact Pharmacy Diagnoses Type 2 diabetes mellitus with hyperglycemia, unspecified whether fci insulin use (Multi) Cat Richardson MD [address] [place] [address] Phone: tel: fax: Cynthia Booth, PharmD [address] [place] [address] Phone: tel: fax: Referral ID Status Reason Start Date Expiration Date Visits Requested Visits Authorized [id number] Authorized Specialty Services Required 11/16/2024 11/16/2025 1 1 Reason Comments Diabetes Specialty Diagnoses / Procedures Referred By Contac t Referred To Contact Pharmacy Diagnoses Type 2 diabetes mellitus with hyperglycemia, with long-term current use of insulin Type 2 diabetes mellitus with hyperglycemia, unspecified whether fci insulin use (Multi) Cat Richardson MD [address] [place] [address] Phone: tel: fax: Cynthia Booth, PharmD [address] [place] [address] Phone: tel: fax: Referral ID Status Reason Start Date Expiration Date Visits Requested Visits Authorized [id number] Authorized Specialty Services Required 11/24/2024 11/24/2025 1 1 Reason Comments HOSPITAL DISCHARGE Pt presents for hosp ital discharge visit - heart attack.Pt had flu vaccine 05-24-24. Reason Comments Follow-up EPV eoe fuv states s x are improving denies any pain or sx at present Reason Comments UTI Reason Comments Medicare Annual Wellness Visit Subsequen t Pt presents for MWV. Follow-up Pt presents for 6 mt h fuv. Pt states no concerns to discuss. Specialty Diagnoses / Procedures Referred By Contac t Referred To Contact Diagnoses Type 2 diabetes mellitus with hyperglycemia, with long-term current use of insulin Procedures Follow up in Endocrinology Pharmacy Cat Richardson MD [address] [place] [address] Phone: tel: fax: Referral ID Status Reason Start Date Expiration Date V isits Requested Visits Authorized [id number] Authorized 12/26/2024 12/26/2025 1 1 Scheduled Active and Recently Administ ered Medications (unrecognized section and content) Medication Order 04/08/2024 04/09/2024 04/10/2024 acetaminophen (Tylenol) tablet 975 mg (COMPLETED) 975 mg, oral, Once, On Sat04/10/24 at 0645, For 1 dose, Preprocedure, If ordered PRN for pain, nurse is permitted to administer this medication for higher pain scores based on patient preference? Yes 0653 (Given - Provid er: Vanessa David RN) ceFAZolin (Ancef) 2 g in dextrose (iso) IV 100 mL 2 g, intravenous, Administer over 30 Minutes, Once, On Sat04/10/24 at 0645, For 1 dose, Preprocedure, Administer within 60 minutes prior to incision. premix bag, Dosing of this medication varies based on severity of illness. Does this patient have sepsis or concern for sepsis (probable or documented infection plus systemic manifestations of infection)? No, Suspected Indication (Select all that apply): Surgical Prophylaxis, Indications: Surgical Prophylaxis 0645 (Due) gabapentin (Neurontin) capsule 600 mg (COMPLETED) 600 mg, oral, Once, On Sat04/10/24 at 0645, For 1 dose, Preprocedure, Capsules may be opened and sprinkled on food (eg, applesauce, orange juice, pudding 0653 (Given - Provid er: Vanessa David RN) povidone-iodine 5 % kit kit (COMPLETED) Topical, Once, On Sat04/10/24 at 0645, For 1 dose, Preprocedure 0655 (Given - Provid er: Vanessa David RN) Continuous Medication Order 04/08/2024 04/09/2024 04/10/2024 lactated Ringer's infusion 100 mL/hr, intravenous, Continuous, Starting on Sat04/10/24 at 0645, Preprocedure 0715 ([facility] ider: EDWIN Funes) FOR RECORDS PERTAINING TO PATIENTS WHO ARE OR HAVE BEEN ENROLLED IN A CHEMICAL DEPENDENCY/SUBSTANCEABUSE PROGRAM, SOME INFORMATION MAY BE OMITTED. This clinical summary was aggregated from multiple sources. Caution should be exercised in using it in the provision of clinical care. This summary normalizes information from multiple sources, and as a consequence, information in this document may materially change the coding, format and clinical context of patient data. In addition, data may be omitted in some cases. CLINICAL DECISIONS SHOULD BE BASED ON THE PRIMARY CLINICAL RECORDS. [facility]. provides no warranty or guarantee of the accuracy or completeness of information in this document."
[2025-04-08 05:00] VITALS: BP 112/99; PULSE 78; RESP 18; O2SAT 100
[2025-04-08 06:00] VITALS: BP 107/61; PULSE 76; RESP 18; O2SAT 98
[2025-04-08 06:16] LABS: Troponin T High Sens 2 HR 16 ng/L (<=14)
--- NOTE | 2025-04-08 06:29 | EX.ED.DYSGE1 ---
HPI History of Present Illness Chief Complaint: Chest Pain Informant: patient and spouse/S.O. Narrative Narrative: Patient is a 74-year-old female with past medical history of type 2 diabetes as well as known CAD with previous STEMI in November of this year requiring stent placement. She states she has been doing well since the stent and just finished cardiac rehab. She reports she was sleeping and had a dream where she believes she was birthing triplets. She states she awoke and noticed some pain in her low back and with that she also noticed some pain in her midsternal chest. She states there is no associated nausea vomiting or diaphoresis or shortness of breath. However she did have midsternal chest pain with her heart attack in November and this concerns her and therefore she presents for evaluation [facility] Medical History Grade I diastolic dysfunction Coronary artery disease ST elevation (STEMI) myocardial infarction involving left anterior descending coronary artery ST elevation (STEMI) myocardial infarction (11/26/24) Chest pain H/O Alexis thyroiditis Type 2 diabetes mellitus Breast pain, left Hemorrhoid Breast cancer screening Diabetes mellitus type 1.5 Osteoarthritis Morbid obesity with BMI of 40.0-44.9, adult Osteopenia Left upper arm pain Left shoulder pain Intertriginous dermatitis associated with moisture Chronic back pain Easy bruising Walker as ambulation aid Ambulates with cane Pulmonary embolism DVT (deep venous thrombosis) Syncope Gastric reflux Chronic cough History of stress test Hypertension History of anesthesia problem Degenerative arthritis of hip Hypertension Polyneuropathy Spinal stenosis of lumbar region Cataract fragments in right eye following surgery Herniated nucleus pulposus, L3-4 left Cubital tunnel syndrome on left Impaired gait and mobility Chronic neck pain Cervical spinal stenosis Carpal tunnel syndrome, left Cervical radiculopathy at C8 Glaucoma DM neuropathies Liver hemangioma Ulcer Alexis's thyroiditis Rheumatoid arthritis Lupus IBS (irritable bowel syndrome) Gout Cataracts, bilateral History of breast lump History of UTI Anemia Seasonal allergies Home Medications ?Medication ?Instructions ?Recorded ?Last Taken ?Type cholecalciferol (vitamin D3) 10 25 mcg PO DAILY Check with primary 07/06/21 Unknown History mcg (400 unit) capsule doctor gabapentin 600 mg tablet 600 mg PO DAILY Check with primary 07/06/21 Unknown History doctor vitamin B complex (B 1 tab PO DAILY supplement 12/27/21 Unknown History Complex-Vitamin B12 tablet) multivitamin 1 tab PO DAILY supplement 08/03/22 Unknown History circaid wrap #2 ea 09/03/22 Unknown Rx acetaminophen 500 mg tablet 1,000 mg PO Q6 PRN fever or pain 11/28/22 Unknown History omeprazole 20 mg capsule,delayed 40 mg PO DAILY PRN reflux 11/28/22 Unknown History release Handicap Placard #1 ea 12/10/22 Unknown Rx blood-glucose meter (OneTouch #1 ea 01/18/23 Unknown Rx Ultra2 Meter kit) Electronic blood pressure cuff #1 ea 05/20/23 Unknown Rx diclofenac sodium 1 % topical gel 4 g topical BID PRN Muscle/joint 06/18/23 Unknown Rx pain #100 grams blood sugar diagnostic (OneTouch #180 ea 08/05/23 Unknown Rx Ultra Test strips) lancets #180 ea 08/05/23 Unknown Rx pen needle, diabetic 32 gauge x #150 ea 09/12/23 Unknown Rx 5/32 (BD Ultra-Fine Nan Pen Needle) insulin glargine 100 unit/mL (3 35 unit subcut DAILY DM 11/26/24 Unknown History mL) subcutaneous pen (Lantus Solostar U-100 Insulin) insulin lispro 100 unit/mL 10 unit subcut TID diabetes 11/26/24 Unknown History subcutaneous cartridge (Humalog U-100 Insulin) methenamine hippurate 1 gram tablet 1 g PO Q12H 11/26/24 Unknown History probenecid 500 mg tablet 250 mg PO Q12H 11/26/24 Unknown History aspirin 81 mg tablet,delayed 81 mg PO DAILY@0800 #30 tabs 11/28/24 Unknown Rx release atorvastatin 80 mg tablet 80 mg PO QHS #30 tabs 11/28/24 Unknown Rx carvedilol 3.125 mg tablet 3.125 mg PO BID #60 tabs 11/28/24 Unknown Rx clopidogrel 75 mg tablet 75 mg PO DAILY #30 tabs 11/28/24 Unknown Rx dapagliflozin propanediol 10 mg 10 mg PO DAILY #30 tabs 11/28/24 Unknown Rx tablet (Farxiga) losartan 25 mg tablet 25 mg PO DAILY #30 tabs 11/28/24 Unknown Rx Elastic back brace #1 ea 04/05/25 Unknown Rx Elastic right knee brace #1 ea 04/05/25 Unknown Rx Allergy/AdvReac Type Severity Reaction Status Date / Time aspirin Allergy Upset Verified 04/08/25 03:03 Stomach capsaicin Allergy Rash Verified 04/08/25 03:03 chlorhexidine Allergy Rash Verified 04/08/25 03:03 codeine Allergy Vomiting Verified 04/08/25 03:03 empagliflozin (From Allergy Other Verified 04/08/25 03:03 Jardiance) erythromycin base Allergy Other Verified 04/08/25 03:03 hydrocodone (From [place]) Allergy Other Verified 04/08/25 03:03 Sulfa (Sulfonamide Allergy Rash Verified 04/08/25 03:03 Antibiotics) tramadol Allergy Other Verified 04/08/25 03:03 trimethoprim Allergy PT UNSURE Verified 04/08/25 03:03 OF REACTION baclofen AdvReac Severe nightmares Verified 04/08/25 03:03 adhesive tape AdvReac Rash Verified 04/08/25 03:03 buprenorphine AdvReac Rash Verified 04/08/25 03:03 carbidopa (From Sinemet) AdvReac Rash Verified 04/08/25 03:03 cat dander AdvReac Other Verified 04/08/25 03:03 cigarette smoke AdvReac Other Verified 04/08/25 03:03 ciprofloxacin AdvReac Rash Verified 04/08/25 03:03 cyclobenzaprine AdvReac Nausea Verified 04/08/25 03:03 Environmental Allergies: AdvReac Other Verified 04/08/25 03:03 Uncoded levodopa (From Sinemet) AdvReac Other Verified 04/08/25 03:03 meperidine AdvReac PT UNSURE Verified 04/08/25 03:03 OF REACTION sulfamethoxazole (From AdvReac Nausea Verified 04/08/25 03:03 Septra) Family History Grandmother Cerebral aneurysm CVA (cerebral vascular accident) Brother CVA (cerebral vascular accident) Cancer Mother CVA (cerebral vascular accident) Father Cancer Other Diabetes Heart disease Hypertension Myocardial infarction Surgical History Hx of laminectomy History of cataract removal with insertion of prosthetic lens H/O: hysterectomy History of ankle surgery Hx of cholecystectomy History of total right knee replacement History of lumbar laminectomy History of lumbar spinal fusion Hx of tonsillectomy Social History household members: spouse housing: house Smoking Status: Never smoker Electronic Cigarette Use: not used second hand exposure: No alcohol intake: never substance use type: does not use what type of physical activity do you participate in: none sharla/christian: None seatbelt use: always ROS ROS ED Constitutional Constitutional ED: Denies chills or fever(s) Eyes Eyes: Denies blurry vision or change in vision ENT ENT ED: Denies sore throat Cardiovascular Cardiovascular: Reports chest pain; Denies palpitations or racing heartbeat Respiratory/Chest Respiratory/Chest: Denies cough or dyspnea Gastrointestinal Gastrointestinal: Denies abdominal pain, diarrhea, nausea or vomiting Genitourinary Genitourinary ED: Denies dysuria Musculoskeletal Musculoskeletal: Reports back pain Integumentary Denies rash Neurologic Neurologic: Denies headache(s) Hematologic/Lymphatic Hematologic/Lymphatic: Denies easy bleeding or easy bruising EXAM Physical Exam Const Vital Signs: 04/08/25 03:04 04/08/25 03:07 04/08/25 04:00 Temperature 97.7 F L Temperature Source Oral Pulse Rate 85 80 Respiratory Rate 16 18 Respiratory Effort Normal Non-Labored Respiratory Pattern Normal Blood Pressure 150/71 H 125/62 H Blood Pressure Mean 97 83 Pulse Ox 98 97 Oxygen Delivery Method Room Air Room Air 04/08/25 05:00 04/08/25 06:00 04/08/25 06:40 Temperature 98 F Temperature Source Pulse Rate 78 76 79 Respiratory Rate 18 18 18 Respiratory Effort Respiratory Pattern Blood Pressure 112/99 H 107/61 126/74 H Blood Pressure Mean 103 76 91 Pulse Ox 100 98 96 Oxygen Delivery Method Room Air Room Air Positive well nourished, well developed and obese General Appearance ED: well developed; Negative for pallor Nutritional Appearance: obese HEENT HEENT Narrative: Normocephalic atraumatic Eyes PERRL and EOMs intact bilaterally General Eye ED: Negative for scleral icterus Neck supple and no JVD Chest Wall Chest Narrative: There is midsternal chest pain with palpation that the patient states is similar to the pain she has been experiencing There is no obvious bony deformity or subcutaneous emphysema No overlying soft tissue changes to suggest trauma or infection Resp normal respiratory effort and clear to auscultation bilaterally Cardio regular rate and regular rhythm Rate: other Other Details: Radial and carotid pulses are equal and symmetric GI normal to inspection, nondistended, normoactive bowel sounds, non-tender, non-distended and no masses GI Narrative: No pulsatile mass or fluid wave Auscultation: normoactive bowel sounds Palpation: soft Extremity normal to inspection Neuro oriented x3, CN's II-XII intact bilaterally and no sensory deficits noted Sensorium / Orientation: alert Motor Exam: strength 5/5 throughout Psych mental status grossly normal Skin no rashes or lesions noted and no wounds General Skin Exam: Negative for jaundice or pallor MDM MDM MDM Narrative Medical decision making narrative: Patient arrived to the ER slightly hypertensive otherwise with stable vital. She reported pain in the midsternal chest after waking from a dream. She does have known CAD and previous stent placement roughly 4 months ago. However there was no associated nausea vomiting diaphoresis or shortness of breath. In order to rule out acute coronary syndrome versus cardiac arrhythmia versus acute kidney injury versus acute blood loss anemia I did elect to perform basic laboratory study. A chest x-ray was obtained to rule out lung pathology such as pneumonia or pneumothorax. Chest x-ray revealed no acute finding. Initial troponin is 19 and 2-hour delta is 16 trending down and less than a value of 6 as far as the difference which effectively rules the patient out of the cardiac algorithm. Moreover on reevaluation she has had spontaneous resolution of symptoms. There is been no cardiac dysrhythmia noted on her cardiac monitoring during the ER stay. Therefore at this time a spontaneous resolution of her chest pain and overall negative workup I do not feel there is need for readmission to the hospital and she is otherwise safe for discharge with outpatient follow History & Record Review Discussion w/independent historian: Patient and Significant other Lab Data Attestation: I reviewed the patient's lab results. Labs: Laboratory Results - last 24 hr 04/08/25 04/08/25 03:31 05:41 WBC 8.7 RBC 4.13 L Hgb 12.9 Hct 38.6 MCV 93.5 MCH 31.2 MCHC 33.4 RDW Std Deviation 44.1 H RDW Coeff of [place] 12.9 Plt Count 280 MPV 9.0 Immature Gran % (Auto) 0.500 Neut % (Auto) 57.3 Lymph % (Auto) 29.7 [place] % (Auto) 7.5 Eos % (Auto) 4.5 Baso % (Auto) 0.5 Absolute Neuts (auto) 5.0 Absolute Lymphs (auto) 2.57 Nucleated RBC % 0 Sodium 138 Potassium 3.9 Chloride 101 Carbon Dioxide 24.6 Anion Gap 12 BUN 16 Creatinine 0.96 Estim Creat Clear Calc 64.95 Est GFR (MDRD) Non-Af 62 BUN/Creatinine Ratio 16.3 Glucose 225 H Calcium 9.1 Magnesium 1.9 Troponin T High Sens 19 H D Troponin T Hi Sens 2 Hr 16 H Radiography Diagnostic Testing: Clinical Impression(s) from Imaging Studies Chest X-Ray 04/08/25 03:50 IMPRESSION: No acute chest findings. Reading Location: [place] [id number] Chest x-ray is interpreted by the emergency medicine physician reveals no acute infiltrate pneumothorax or pleural effusion or widening of the mediastinum Discharge Plan Triage Chief Complaint: Chest Pain ED Provider: Vamshi Acuna Dx/Rx/DC Orders Clinical Impression: Nonspecific chest pain, Type 2 diabetes mellitus, Coronary artery disease Instructions: ED Chest Pain, Uncertain Cause Prescriptions: No Action gabapentin 600 mg tablet 600 mg PO DAILY cholecalciferol (vitamin D3) 10 mcg (400 unit) capsule 25 mcg PO DAILY omeprazole 20 mg capsule,delayed release(DR/EC) 40 mg PO DAILY PRN (Reason: reflux) vitamin B complex [B Complex-Vitamin B12] Tablet 1 tab PO DAILY acetaminophen 500 mg tablet 1,000 mg PO Q6 PRN (Reason: fever or pain) (DME) Handicap Placard See Rx Instructions .ROUTE .MEDSUPPLY Qty: 1 0RF Rx Instructions: As directed, length of time 3 years (DME) circaid wrap large See Rx Instructions .Route .MEDSUPPLY Qty: 2 2RF Rx Instructions: Wear daily, remove at bedtime (DME) Electronic blood pressure cuff See Rx Instructions .Route .MEDSUPPLY Qty: 1 0RF Rx Instructions: As directed (DME) Elastic back brace See Rx Instructions .Route .MEDSUPPLY Qty: 1 0RF Rx Instructions: As directed (DME) Elastic right knee brace See Rx Instructions .Route .MEDSUPPLY Qty: 1 0RF Rx Instructions: As directed multivitamin Tablet 1 tab PO DAILY methenamine hippurate 1 gram tablet 1 g PO Q12H probenecid 500 mg tablet 250 mg PO Q12H Patient Comments: Per Pts Pharmacy pt has not yet filled Humalog U-100 Insulin 100 unit/mL cartridge 10 unit subcut TID Rx Instructions: plus sliding scale insulin glargine [Lantus Solostar U-100 Insulin] 100 unit/mL (3 mL) insulin pen 35 unit subcut DAILY aspirin 81 mg Tablet,Delayed Release (Dr/Ec) 81 mg PO DAILY@0800 Qty: 30 3RF atorvastatin 80 mg Tablet 80 mg PO QHS Qty: 30 2RF clopidogrel 75 mg Tablet 75 mg PO DAILY Qty: 30 3RF carvedilol 3.125 mg Tablet 3.125 mg PO BID Qty: 60 2RF dapagliflozin propanediol [Farxiga] 10 mg Tablet 10 mg PO DAILY Qty: 30 2RF losartan 25 mg Tablet 25 mg PO DAILY Qty: 30 2RF (DME) blood-glucose meter [OneTouch Ultra2 Meter] Kit See Rx Instructions .Route Qty: 1 0RF Rx Instructions: As directed diclofenac sodium 1 % gel 4 g topical BID PRN (Reason: Muscle/joint pain) Qty: 100 6RF (DME) OneTouch Ultra Test Strip See Rx Instructions .ROUTE .MEDSUPPLY Qty: 180 6RF Rx Instructions: 6x/day (DME) lancets Misc See Rx Instructions .ROUTE .MEDSUPPLY Qty: 180 6RF Rx Instructions: 4x/day (DME) pen needle, diabetic [BD Ultra-Fine Nan Pen Needle] 32 gauge x 5/32 needle See Rx Instructions .ROUTE .MEDSUPPLY Qty: 150 6RF Rx Instructions: 5x/day Primary Care Provider: Matilde Ontiveros Referrals: Matilde Ontiveros, [Primary Care Provider] - Activity Restrictions/Additional Instructions: Your EKG showed no sign of lack of blood flow or active heart attack. The blood test for your heart troponin correlates with this. Please continue all your medications as directed by your doctor and return to the ER should you have any further concerns Print Language: Samoan Disposition Disposition: Home, Self Care Discharge Date/Time: 04/08/25 06:47
[2025-04-08 06:40] VITALS: BP 126/74; PULSE 79; RESP 18; TEMP 36.6; O2SAT 96
== END 2025-04-08 06:47 | disposition home or self-care (01) ==
PROVIDERS: Emergency Provider Emergency Medicine; PCP Family Medicine; Visit Provider Emergency Medicine
DX: R07.9 Chest pain, unspecified (principal); M06.9 Rheumatoid arthritis, unspecified; I11.0 Hypertensive heart disease with heart failure; I50.32 Chronic diastolic (congestive) heart failure; E11.9 Type 2 diabetes mellitus without complications; Z79.4 Long term (current) use of insulin; I25.10 Atherosclerotic heart disease of native coronary artery without angina pectoris; M54.9 Dorsalgia, unspecified; G89.29 Other chronic pain; I25.2 Old myocardial infarction; Z79.82 Long term (current) use of aspirin; Z79.02 Long term (current) use of antithrombotics/antiplatelets; Z79.899 Other long term (current) drug therapy; Z86.718 Personal history of other venous thrombosis and embolism; Z86.711 Personal history of pulmonary embolism
CPT/HCPCS: 71046; 80048; 83735; 84484; 85025; 93005; 99282; A4216